=== PATIENT | female | born 1940 | race Caucasian/White ===

== ENCOUNTER 2017-05-24 22:03 | Inpatient (IN) | payer MEDICARE, OTHER ==
[~2017-05-24] VITALS: Ht 149.9 cm; Wt 55.7 kg
[~2017-05-24 22:03] MED LIST: ATOR10TA23 PO; CALC500T12 PO; DRON400T2 PO; LEVO88TA36 PO; LUBI24CA7 PO; METO-53 PO; NITR0.4T28 SL; WARF4TAB52 PO
--- NOTE | 2017-05-24 22:19 | RADRPT ---
PROCEDURE: CT Brain without contrast. CLINICAL INDICATION: Code stroke, elevated INR TECHNIQUE: A CT of the brain was performed utilizing axial imaging from the skull base through the vertex without intravenous contrast. Multiplanar reformatted images were made.The CTDIvol is 45.01 mGy and the DLP is 720.23 mGycm. One or more the following dose reduction techniques were utilized: Automated exposure control, adjus tment of the mA and / or kV according to patient's size, or use of iterative reconstruction techniqu e. COMPARISON: None. FINDINGS: There is no intracranial hemorrhage, mass effect, or midline shift. No extra-axial fluid collection is seen. Mild atrophy is identified with compensatory ventricular and sulcal enlargement. Mild de creased attenuation is seen in the periventricular and deep white matter, compatible with microvascu lar ischemic disease. The husain white matter differentiation is well preserved with no acute infarct detected. No skull fracture seen. Minimal mucosal thickening in right sphenoid sinus. Arterial juan cification. IMPRESSION: No acute bleed. No acute major territory infarct seen. Critical result discussed with Dr. Crowell at 10:17 p.m. on 05/24/2017. RPTAT: HJES .Tom Burroughs MD, MD Date Time Electronically viewed and signed by .Tom Burroughs MD, on 05/24/2017 22:19 .S/
[2017-05-24] MEDS ORDERED: SODIUM CHLORIDE 0.9% 1L BAG IV* STA (22:41)
[2017-05-24 22:45] LABS: ADD SCAN DIFF NO
[2017-05-24 22:47] LABS: ABNORMAL IP MESSAGE 1; HEMATOCRIT 38.3 % (37.0-47.0); HEMOGLOBIN 13.2 g/dl (12.0-16.0); MEAN CORPUSCULAR HEMOGLOBIN 30.6 pg (29.0-33.0); MEAN CORPUSCULAR HGB CONC 34.5 g/dl (32.0-37.0); MEAN CORPUSCULAR VOLUME 88.7 fl (82.0-101.0); MEAN PLATELET VOLUME 11.2 fl (7.4-10.4); PLATELET COUNT 264 10^3/UL (140-415); RED BLOOD COUNT 4.32 10^6/ul (4.20-5.40); RED CELL DISTRIBUTION WIDTH 13.1 % (11.5-14.5)
[2017-05-24] MEDS ORDERED: METOPROLOL 5 MG INJ IV ONE (23:00)
[2017-05-24] MEDS ORDERED: DILTIAZEM 25 MG INJ IV ONE (23:00)
[2017-05-24] MEDS ORDERED: LEVOFLOXACIN 500MG/D5W (PMX) 100 ML IVPB ONE (23:00)
[2017-05-24 23:06] LABS: INR 2.53; PROTIME 27.6 Sec (12.2-14.2); PT RATIO 2.2
[2017-05-24 23:07] LABS: PARTIAL THROMBOPLASTIN TIME 32.3 Sec (25.0-35.0)
[2017-05-24 23:15] LABS: CALCIUM 7.7 mg/dl (8.4-10.2); CREATININE 0.66 mg/dl (0.44-1.00); POTASSIUM 4.1 mmol/L (3.5-5.1)
--- NOTE | 2017-05-24 23:19 | ERA ---
ER Documentation Chief Complaint Date/Time DATE: 05/24/17 TIME: 23:15 Chief Complaint transfer in from [facility]; c/o weakness HPI This 76-year-old female is brought in along with her daughter transferred from [facility] for strokelike symptoms. The at 1953 she had some slurring of speech as well as blurred vision. In the time it took to arrive here she had resolution of those symptoms. She does have a artificial mitral valve for which she receives Coumadin. She had laboratories at the facility and the only thing brought with her was a CBC and coags which show an INR of 3.2. She did not take her Cardizem today. She does admit to having foul-smelling urine and some pain on urination for the last few days. Is also recently been immunosuppressed that she was treated for what sounds like ITP with immunosuppressants that just ended yesterday. ROS All systems reviewed and are negative except as per history of present illness. Medications Home Meds Reported Medications Lubiprostone* (Amitiza*) 24 Mcg Capsule, 24 MCG PO BID 12/22/11 Dronedarone Hydrochloride* (Multaq*) 400 Mg Tablet, 400 MG PO Q12 12/22/11 Atorvastatin (Lipitor) 10 Mg Tablet, 10 MG PO HS 12/22/11 Warfarin Sodium* (Warfarin Sodium*) 4 Mg Tablet, 4 MG PO DAILY 12/22/11 Levothyroxine Sodium (Levothroid) 88 Mcg Tablet, 88 MCG PO DAILY, 0 Refills 09/06/11 Nitroglycerin (Nitroquick) 0.4 Mg Tab.subl, 0.4 MG SL PRN, 0 Refills 09/06/11 Metoprolol (Lopressor) 50 Mg Tablet, 50 MG PO BID, 0 Refills 09/06/11 Calcium Carbonate* (Oysco-500*) 1 Tab Tablet, 500 MG PO BID, 0 Refills 09/06/11 Allergies Allergies: Coded Allergies: Penicillins (Verified Allergy, Severe, ANAPHALAXIS, 12/22/11) Uncoded Allergies: ASA (Allergy, Mild, RASH, 10/11/11) HEPARIN (Allergy, Unknown, 05/24/17) PMhx/Soc History of Surgery: Yes (OPRN HEART W/ VALVE REPLACEMENT; SPLEEN ; GALLBLADDER) Anesthesia Reaction: No Hx Neurological Disorder: No Hx Respiratory Disorders: No Hx Cardiac Disorders: Yes (HTN) Hx Psychiatric Problems: No Hx Miscellaneous Medical Probl: No Hx Alcohol Use: No Hx Substance Use: No Hx Tobacco Use: No Smoking Status: Unknown if ever smoked Physical Exam Vitals Vital Signs Date Time Temp Pulse Resp B/P Pulse Ox O2 Delivery O2 Flow Rate FiO2 05/25/17 00:58 83 17 99/67 95 Room Air 05/25/17 00:12 98.5 118 17 134/88 98 Room Air 05/24/17 22:25 100.2 129 15 135/80 95 Room Air 05/24/17 22:20 Nasal Cannula 2 05/24/17 22:16 100.2 126 20 135/80 Physical Exam Const: [] Mild distress Head: Atraumatic Eyes: Normal Conjunctiva ENT: Normal External Ears, Nose and Mouth. Neck: Full range of motion..~ No meningismus. Resp: Clear to auscultation bilaterally Cardio: Irregularly irregular tachycardia, no murmurs Abd: Soft, non tender, non distended. Normal bowel sounds Skin: No petechiae or rashes Back: No midline or flank tenderness Ext: No cyanosis, or edema, distal pulses intact all 4 extremities, 5 out of 5 strength all extremities with no focal weakness Neur: Awake and alert and oriented 3, cranial nerves II through XII intact, no cerebellar deficits Psych: Normal Mood and Affect Result Diagram: 05/24/17222605/24/172226 Results 24 hrs Laboratory Tests Test 05/24/17 22:25 05/24/17 22:27 05/24/17 22:50 05/24/17 22:58 Bedside Glucose 190mg/dL White Blood Count 36.810^3/ul Red Blood Count 4.3210^6/ul Hemoglobin 13.2g/dl Hematocrit 38.3% Mean Corpuscular Volume 88.7fl Mean Corpuscular Hemoglobin 30.6pg Mean Corpuscular Hemoglobin Concent 34.5g/dl Red Cell Distribution Width 13.1% Platelet Count 98825^3/UL Mean Platelet Volume 11.2fl Neutrophils % 88.0% Lymphocytes % 3.0% Monocytes % 9.0% Neutrophils # 32.410^3/ul Lymphocytes # 1.110^3/ul Monocytes # 3.310^3/ul Differential Comment MANUAL DIFF Platelet Estimate PLT APPEAR ADEQUATE Anisocytosis 1+ Ovalocytes FEW Prothrombin Time 27.6Sec Prothrombin Time Ratio 2.2 INR International Normalized Ratio 2.53 Activated Partial Thromboplast Time 32.3Sec Sodium Level 122mmol/L Potassium Level 4.1mmol/L Chloride Level 91mmol/L Carbon Dioxide Level 28mmol/L Anion Gap 7 Blood Urea Nitrogen 20mg/dl Creatinine 0.66mg/dl Glucose Level 195mg/dl Hemoglobin A1c 5.8% Calcium Level 7.7mg/dl Troponin I 0.013ng/ml Urine Color STANISLAW Urine Clarity CLOUDY Urine pH 7.0 Urine Specific [place] 1.020 Urine Ketones NEGATIVEmg/dL Urine Nitrite NEGATIVEmg/dL Urine Bilirubin NEGATIVEmg/dL Urine Urobilinogen NEGATIVEmg/dL Urine Leukocyte Esterase 3+Karol/ul Urine Microscopic RBC 16/HPF Urine Microscopic WBC 130/HPF Urine Bacteria MODERATE/HPF Urine Mucus MODERATE/HPF Urine Hemoglobin 2+mg/dL Urine Glucose 2+mg/dL Urine Total Protein 2+mg/dl Urine Opiates Screen Negative Urine Barbiturates Negative Urine Amphetamines Screen Negative Urine Benzodiazepines Screen Negative Urine Cocaine Screen Negative Urine Cannabinoids Negative Lactic Acid Level 1.2mmol/L Current Medications Medications (Trade) Dose Ordered Sig/Vy Route PRN Reason Start Time Stop Time Status Last Admin Dose Admin Diltiazem HCl (Cardizem Iv) 15 mg ONCE ONCE IV 05/24/17 23:00 05/24/17 23:01 DC 05/24/17 22:59 Metoprolol Tartrate (Lopressor) 5 mg ONCE ONCE IV 05/24/17 23:00 05/24/17 23:01 DC 05/24/17 22:59 Sodium Chloride 1730 ml 1,730 ml BOLUS OVER 2 HOURS STAT IV* 05/24/17 22:41 05/24/17 22:45 DC 05/24/17 22:58 Levofloxacin/ Dextrose (Levaquin 500mg/ D5W 100 ml (Pmx)) 100 ml @ 100 mls/hr ONCE ONCE IVPB 05/24/17 23:00 05/24/17 23:59 DC 05/24/17 23:00 Morphine Sulfate (morphine) 2 mg ONCE ONCE IV 05/25/17 00:00 05/25/17 00:01 DC Ondansetron HCl (Zofran Inj) 4 mg ONCE STAT IV 05/24/17 23:32 05/24/17 23:34 DC 05/24/17 23:54 Ketorolac Tromethamine (Toradol) 15 mg ONCE STAT IV 05/24/17 23:32 05/24/17 23:34 DC 05/24/17 23:54 Ondansetron HCl (Zofran Inj) 4 mg ER BRIDGE PRN IV NAUSEA AND/OR VOMITING 05/25/17 00:30 05/26/17 00:29 Acetaminophen (Tylenol Tab) 650 mg ER BRIDGE PRN PO MILD PAIN/FEVER 05/25/17 00:30 05/26/17 00:29 Diltiazem HCl 25 mg 25 mg ONCE ONCE IV 05/25/17 00:30 05/25/17 00:31 DC 05/25/17 00:22 Diltiazem HCl (Cardizem-D5W 125 Mg/125 ml Drip) 125 ml @ 5 mls/hr TITRATE IV 05/25/17 00:30 05/25/17 00:22 Procedures/MDM UTI with sepsis with hyponatremia and difficult to control A. fib with RVR. Patient's high leukocyte count is likely secondary to her recent treatment with steroids in IVIG. Her transient strokelike symptoms are possibly a complication of her infection as well as hyponatremia. She was hydrated with 30 cc/kg IV fluid. She was given Levaquin IV. She was given 15 mg of Cardizem as well as 5 mg of metoprolol which seemed to have absolutely no effect on her A. fib with RVR. She was then given 25 mg of Cardizem which did seem to control. Cardizem drip is also ordered. Patient also had some lower back pain which may be secondary to pyelonephritis. She was given 15 mg of Toradol IV which resolved with this pain. Spoke with Dr. Espinal who previously admitted the patient and will be admitting this patient to telemetry. EKG interpretation: A. fib with RVR rate of 129, right bundle branch block, normal axis, no ST or T-wave changes concerning for acute ischemia, likely rate related ST depressions in precordial leads. residential monitor interpretation A. fib with RVR rate of 120s and 130s, A. fib with rate controlled rate of 70s after administration of the second Cardizem bolus. No other arrhythmias CT brain interpretation: I see no acute process. I see no hemorrhage no mass- effect no midline shift no large infarcts, no skull fracture Chest x-ray interpretation: I see no acute process. I see no pulmonary edema, no infiltrate, no pneumothorax, no fracture Critical care time 39 minutes: This includes a treatment of A. fib with RVR with concomitant hyponatremia metabolic encephalopathy and sepsis, very careful fluid administration, early antibiotic administration, use of vasoactive medication IV metoprolol and diltiazem, chart reviewed, multiple visits the patient's bedside, discussion with patient daughter and admitting doctor. This does not include any billable procedures. Departure Diagnosis: Primary Impression: Sepsis Additional Impressions: Atrial fibrillation with RVR Metabolic encephalopathy Hyponatremia Condition: Serious VICK MONTANO DO May 24, 2017 23:19
[2017-05-24 23:23] LABS: LYMPHOCYTES # 1.1 10^3/ul (0.8-2.9); MONOCYTE # 3.3 10^3/ul (0.3-0.9); NEUTROPHIL # 32.4 10^3/ul (1.6-7.5)
[2017-05-24 23:26] LABS: TROPONIN-I 0.013 ng/ml (0.00-0.12)
[2017-05-24 23:30] LABS: ANISOCYTOSIS 1+; OVALOCYTES FEW; PLATELET ESTIMATE PLT APPEAR ADEQUATE
[2017-05-24] MEDS ORDERED: KETOROLAC 15 MG INJ IV STA (23:32)
[2017-05-24] MEDS ORDERED: ONDANSETRON 4 MG INJ IV STA (23:32)
[2017-05-24 23:48] LABS: ADD UMIC YES; UR ASCORBIC ACID NEGATIVE (NEGATIVE); UR BACTERIA MODERATE /HPF (NONE SEEN); UR BILIRUBIN (Dip) NEGATIVE (NEGATIVE); UR BLOOD (Dip) 2+ mg/dL (NEGATIVE); UR CLARITY CLOUDY (CLEAR); UR COLOR AMBER (YELLOW); UR GLUCOSE (Dip) 2+ mg/dL (NEGATIVE); UR KETONES (Dip) NEGATIVE (NEGATIVE); UR LEUKOCYTE ESTERASE (Dip) 3+ Leu/ul (NEGATIVE); UR MUCUS MODERATE /HPF (NONE SEEN); UR NITRITE (Dip) NEGATIVE (NEGATIVE); UR RBC 16 /HPF (0-5); UR TOTAL PROTEIN (Dip) 2+ mg/dl (NEGATIVE); UR UROBILINOGEN (Dip) NEGATIVE (NEGATIVE)
--- NOTE | 2017-05-24 23:51 | RADRPT ---
PROCEDURE: XR Chest. CLINICAL INDICATION: Possible stroke. TECHNIQUE: PA and Lateral views of the chest were obtained. COMPARISON: None. FINDINGS: Cardiomegaly and atherosclerotic calcifications in the thoracic aorta. Left anterior chest wall meño l chamber cardiac pacer. Discoid atelectasis at the left lung base. Question sclerotic changes in the few ribs at the right lower chest, perhaps representing metastatic deposits. Consider CT correl ation. Nuclear medicine bone scan may be of further use. No signs of pleural fluid or pneumothorax are seen. Otherwise, the osseous structures and soft tissues are unremarkable. IMPRESSION: 1. Discoid atelectasis at the left lung base. 2. Mild sclerotic changes in the right lower ribs, otherwise nonspecific. 3. Consider CT correlation to exclude metastatic deposits. 4. Nuclear medicine bone scan may be of further use. RPTAT: UU Physician Sumi Date Time Electronically viewed and signed by Physician Sumi on 05/24/2017 23:50 RS/
[2017-05-25] VITALS (11 sets, daily range): BP systolic 85–139; BP diastolic 48–65; PULSE 109–136; RESP 18–20; TEMP 98.5; Ht 149.9 cm; Wt 55.7 kg
[2017-05-25] MEDS ORDERED: morphine 2 MG INJ IV ONE
[2017-05-25] MEDS ORDERED: DILTIAZEM-D5W 125MG/125ML DRIP 125 ML IV SCH (00:30)
[2017-05-25] MEDS ORDERED: DILTIAZEM 25 MG INJ IV ONE (00:30)
[2017-05-25] MEDS ORDERED: ACETAMINOPHEN 325 MG TAB PO PRN (00:30)
[2017-05-25] MEDS ORDERED: ONDANSETRON 4 MG INJ IV PRN (00:30)
[2017-05-25 00:58] LABS: BARBITURATES Negative (NEGATIVE); BENZODIAZEPINES Negative (NEGATIVE); CANNABINOIDS Negative (NEGATIVE); COCAINE Negative (NEGATIVE); OPIATES Negative (NEGATIVE)
[2017-05-25] MEDS ORDERED: LEVOFLOXACIN 500MG/D5W (PMX) 100 ML IVPB SCH (07:00)
[2017-05-25] MEDS: SOD CHLORIDE 0.9% 1,000 ML IV SCH ×2 (07:00→21:45)
[2017-05-25] MEDS ORDERED: LEVOTHYROXINE 88 MCG TAB PO SCH (07:25)
[2017-05-25 08:15] LABS: ADD SCAN DIFF NO
[2017-05-25 08:22] LABS: ABNORMAL IP MESSAGE 1; HEMATOCRIT 38.5 % (37.0-47.0); HEMOGLOBIN 12.6 g/dl (12.0-16.0); MEAN CORPUSCULAR HEMOGLOBIN 29.4 pg (29.0-33.0); MEAN CORPUSCULAR HGB CONC 32.7 g/dl (32.0-37.0); MEAN PLATELET VOLUME 11.4 fl (7.4-10.4); PLATELET COUNT 226 10^3/UL (140-415); RED BLOOD COUNT 4.28 10^6/ul (4.20-5.40); RED CELL DISTRIBUTION WIDTH 13.5 % (11.5-14.5); WHITE BLOOD COUNT 40.5 10^3/ul (4.8-10.8)
[2017-05-25] MEDS: LEVOFLOXACIN 500MG/D5W (PMX) 100 ML IVPB SCH (08:23)
[2017-05-25] MEDS: LUBIPROSTONE 24 MCG CAP PO SCH ×2 (08:24→21:00)
[2017-05-25] MEDS: ACETAMINOPHEN 325 MG TAB PO PRN (08:24)
[2017-05-25 08:42] LABS: INR 3.15; PROTIME 32.8 Sec (12.2-14.2); PT RATIO 2.6
[2017-05-25 08:52] LABS: ALBUMIN 3.2 g/dl (3.3-4.9); ALBUMIN/GLOBULIN RATIO 0.96; CALCIUM 7.1 mg/dl (8.4-10.2); CREATININE 0.67 mg/dl (0.44-1.00); POTASSIUM 4.3 mmol/L (3.5-5.1); TOTAL PROTEIN 6.5 g/dl (6.1-8.1)
[2017-05-25] MEDS ORDERED: DRONEDARONE HYDROCHLORIDE 400 MG TAB PO SCH (09:00)
[2017-05-25] MEDS ORDERED: METOPROLOL 50 MG TAB PO SCH (09:00)
[2017-05-25 10:16] LABS: LYMPHOCYTES # 1.6 10^3/ul (0.8-2.9); MONOCYTE # 0.8 10^3/ul (0.3-0.9); NEUTROPHIL # 37.7 10^3/ul (1.6-7.5)
[2017-05-25] MEDS ORDERED: SOD CHLORIDE 0.9% 500 ML IV ONE ×2 (12:00→14:30)
[2017-05-25] MEDS ORDERED: DILTIAZEM 60 MG TAB PO SCH (13:00)
--- NOTE | 2017-05-25 13:03 | QN ---
Documentation Comment [id number] DUANE NGUYỄN MD May 25, 2017 13:03
[2017-05-25] MEDS ORDERED: GUAIFENESIN 20 MG/ML 5ML CUP PO PRN (15:00)
[2017-05-25 15:02] LABS: CHOL/HDL RATIO 2.5 RATIO
[2017-05-25] MEDS: GUAIFENESIN/DM 5ML CUP PO PRN ×2 (15:17→21:56)
[2017-05-25] MEDS: DIGOXIN 500 MCG INJ IV SCH ×2 (15:50→21:36)
--- NOTE | 2017-05-25 16:22 | CONS ---
Date/Time of Note Date/Time of Note DATE: 05/25/17 TIME: 16:14 Assessment/Plan Assessment/Plan Chief Complaint/Hosp Course Slurring of speech and blurry of vision Problems: Additional Assessment/Plan Patient is a 76-year-old woman with past medical history of mitral valve replacement status post pacemaker placement, atrial fibrillation was admitted following sudden onset of slurring of speech and blurry of vision. There was no weakness. And her symptoms resolved on arrival in the emergency room. CT scan of the brain is unremarkable. Neurological exam is nonfocal. My impression is that she likely had transient ischemic attack. PLAN: [address] scan of the brain without contrast as MRI of the brain cannot be done 2 carotid ultrasound 3 echocardiogram 4 continue Coumadin and keep INR between 2 and 3 5 neuro check every 4 hours 6 discussed with patient's daughter who is present in the room 7 will follow Consultation Date/Type/Reason Admit Date/Time May 25, 2017 at 00:06 Date of Consultation: May 25, 2017 Type of Consultation: Neurology Reason for Consultation Difficulty in speech Hx of Present Illness Patient is a 76-year-old woman with past medical history of mitral valve replacement on Coumadin, status post pacemaker and history of atrial fibrillation. She started to have symptoms of slurring of speech and blurring of vision as explained by patient's daughter who was in the room. Paramedics were called and she was taken to emergency room and was transferred to [facility]. A CT scan of the brain was unremarkable. Her symptoms had resolved after reaching at hospital. There is no history of weakness, numbness, or swallowing problems. On evaluation she was also found to be hyponatremic. Constitutional: no complaints Eyes: no complaints ENT: no complaints Respiratory: no complaints Cardiovascular: no complaints Gastrointestinal: no complaints Genitourinary: no complaints Musculoskeletal: no complaints Skin: no complaints Neurologic: no complaints Endocrine: no complaints Lymphatic: no complaints Psychological: nl mood/affect, no complaints Immunologic: no complaints Past Medical History Medical History: other (Atrial fibrillation) Past Surgical History Past Surgical Hx: other (Pacemaker, mitral valve replacement) Family History Significant Family History: no pertinent family hx Social History Alcohol Use: none Smoking Status: Never smoker Drug Use: none Exam/Review of Systems Vital Signs Vitals Vital Signs Date Time Temp Pulse Resp B/P Pulse Ox O2 Delivery O2 Flow Rate FiO2 05/25/17 12:51 109 05/25/17 11:23 98.2 18 85/48 95 05/25/17 01:39 Room Air 05/24/17 22:20 2 Exam Constitutional: alert, oriented, well developed Psych: nl mood/affect, no complaints Head: atraumatic, normocephalic Eyes: EOMI, nl conjunctiva, nl lids, nl sclera ENMT: mucosa pink and moist, nl external ears & nose, nl lips & teeth, nl nasal mucosa & septum Neck: non-tender, supple Respiratory: clear to auscultation, normal air movement Cardiovascular: nl pulses, regular rate and rhythm Gastrointestinal: nl liver, spleen, non-tender, soft Genitourinary - Female: nl adnexae, nl external genitalia Musculoskeletal: nl extremities to inspection Neurological: POKER IN II-XII intact, nl mental status, nl speech, nl strength Skin: nl turgor, rash or lesions Lymph: nl lymph nodes Results Result Diagram: 05/25/17 0803 05/25/17 0803 Results 24 hrs Laboratory Tests Test 05/24/17 22:25 05/24/17 22:27 05/24/17 22:50 05/24/17 22:58 Bedside Glucose 190 White Blood Count 36.8 H Red Blood Count 4.32 Hemoglobin 13.2 Hematocrit 38.3 Mean Corpuscular Volume 88.7 Mean Corpuscular Hemoglobin 30.6 Mean Corpuscular Hemoglobin Concent 34.5 Red Cell Distribution Width 13.1 Platelet Count 264 Mean Platelet Volume 11.2 H Neutrophils % 88.0 H Lymphocytes % 3.0 L Monocytes % 9.0 Neutrophils # 32.4 H Lymphocytes # 1.1 Monocytes # 3.3 H Differential Comment MANUAL DIFF Platelet Estimate PLT APPEAR ADEQUATE Anisocytosis 1+ Ovalocytes FEW Prothrombin Time 27.6 H Prothrombin Time Ratio 2.2 INR International Normalized Ratio 2.53 Activated Partial Thromboplast Time 32.3 Sodium Level 122 L Potassium Level 4.1 Chloride Level 91 L Carbon Dioxide Level 28 Anion Gap 7 L Blood Urea Nitrogen 20 Creatinine 0.66 Glucose Level 195 Hemoglobin A1c 5.8 Calcium Level 7.7 L Troponin I 0.013 Urine Color STANISLAW Urine Clarity CLOUDY A Urine pH 7.0 Urine Specific [place] 1.020 Urine Ketones NEGATIVE Urine Nitrite NEGATIVE Urine Bilirubin NEGATIVE Urine Urobilinogen NEGATIVE Urine Leukocyte Esterase 3+ H Urine Microscopic RBC 16 H Urine Microscopic WBC 130 H Urine Bacteria MODERATE Urine Mucus MODERATE Urine Hemoglobin 2+ H Urine Glucose 2+ H Urine Total Protein 2+ H Urine Opiates Screen Negative Urine Barbiturates Negative Urine Amphetamines Screen Negative Urine Benzodiazepines Screen Negative Urine Cocaine Screen Negative Urine Cannabinoids Negative Lactic Acid Level 1.2 Test 05/25/17 01:00 05/25/17 06:12 05/25/17 08:03 Lactic Acid Level 0.9 2.0 White Blood Count 40.5 H Red Blood Count 4.28 Hemoglobin 12.6 Hematocrit 38.5 Mean Corpuscular Volume 90.0 Mean Corpuscular Hemoglobin 29.4 Mean Corpuscular Hemoglobin Concent 32.7 Red Cell Distribution Width 13.5 Platelet Count 226 Mean Platelet Volume 11.4 H Band Neutrophils % 1.0 Lymphocytes % 4.0 L Monocytes % 2.0 Neutrophils # 37.7 H Lymphocytes # 1.6 Monocytes # 0.8 Prothrombin Time 32.8 H Prothrombin Time Ratio 2.6 INR International Normalized Ratio 3.15 Sodium Level 131 L Potassium Level 4.3 Chloride Level 96 L Carbon Dioxide Level 27 Anion Gap 12 Blood Urea Nitrogen 17 Creatinine 0.67 Glucose Level 74 # Calcium Level 7.1 L Total Bilirubin 1.0 Direct Bilirubin 0.00 Indirect Bilirubin 1.0 Aspartate Amino Transf (AST/SGOT) 41 Alanine Aminotransferase (ALT/SGPT) 43 Alkaline Phosphatase 71 Total Protein 6.5 Albumin 3.2 L Globulin 3.30 H Albumin/Globulin Ratio 0.96 Triglycerides Level 56 Cholesterol Level 102 LDL Cholesterol, Calculated 51 HDL Cholesterol 40 Cholesterol/HDL Ratio 2.5 Medications Medications Current Medications Lubiprostone (Amitiza) 24 mcg BID PO Last administered on 05/25/17 08:24; Admin Dose 24 MCG; Start 05/25/17 at 09:00 Nitroglycerin (Nitroglycerin (Sl Tab) 0.4 Mg) 0.4 tab PRN SL ; Start 05/25/17 at 06:00 Warfarin Sodium (Coumadin) 4 mg DAILY@17 PO ; Start 05/25/17 at 17:00; Status Future Hold Pantoprazole (Protonix Tab) 40 mg DAILY@06 PO ; Start 05/26/17 at 06:00 Acetaminophen 650 mg 650 mg Q6H PRN PO PAIN AND OR ELEVATED TEMP Last administered on 05/25/17 08:24; Admin Dose 650 MG; Start 05/25/17 at 06:30 Sodium Chloride 1,000 ml @ 70 mls/hr [id number] IV ; Start 05/25/17 at 07:00 Levofloxacin/ Dextrose (Levaquin 500mg/ D5W 100 ml (Pmx)) 100 ml @ 100 mls/hr Q24H IVPB Last administered on 05/25/17 08:23; Admin Dose 100 MLS/HR; Start 05/25/17 at 07:00 Magnesium Oxide (Mag-Ox 400) 400 mg DAILY PO ; Start 05/26/17 at 09:00 Methylprednisolone Sodium Succinate (Solu-Medrol) 20 mg Q12 IV ; Start 05/25/17 at 21:00 Guaifenesin/ Dextromethorphan (Robitussin Dm Liquid Cup) 5 ml Q4H PRN PO COUGH Last administered on 05/25/17 15:17; Admin Dose 5 ML; Start 05/25/17 at 15:00 Diltiazem HCl (Cardizem) 30 mg QID PO ; Start 05/25/17 at 17:00 Digoxin (Digoxin) 250 mcg Q6H IV Last administered on 05/25/17 15:50; Admin Dose 250 MCG; Start 05/25/17 at 14:00; Stop 05/25/17 at 20:01 Metoprolol Tartrate (Lopressor) 5 mg Q4H PRN IV HR>110 Hold SBP<100; Start 05/25 at 15:[address] scan of the brain 05/24/2017 IMPRESSION: No acute bleed. No acute major territory infarct seen. Critical result discussed with Dr. Crowell at 10:17 p.m. on 05/24/2017. RPTAT: HJES .Tom Burroughs MD, MD Date Time Electronically viewed and signed by .Tom Burroughs MD, MD on 05/24/2017 22:19 ANT HEDRICK MD May 25, 2017 16:22
[2017-05-25] MEDS: DILTIAZEM 30 MG TAB PO SCH ×2 (17:30→21:34)
--- NOTE | 2017-05-25 17:34 | RADRPT ---
PROCEDURE: US carotid arteries. CLINICAL INDICATION: Dizziness. Syncope. TECHNIQUE: Multiple sonographic images of the carotid arteries and vertebral arteries were obtaine d utilizing husain scale, duplex, and color-flow imaging. The images were reviewed on a PACS workstati on. COMPARISON: No prior studies are available for comparison. FINDINGS: Evaluation of the right carotid bifurcation region reveals mild atherosclerotic disease. Evaluation of the left carotid bifurcation region reveals mild atherosclerotic disease. There is antegrade flow within the vertebral arteries bilaterally. RIGHT CAROTID MEASUREMENTS: Common Carotid [id number] (cm/sec) Internal Carotid Artery 40 (cm/sec) External Carotid Artery 47 (cm/sec) Vertebral Artery 51 (cm/sec) Internal Carotid/Common Carotid1.1 LEFT CAROTID MEASUREMENTS: Common Carotid [id number] (cm/sec) Internal Carotid Artery 50 (cm/sec) External Carotid Artery 63 (cm/sec) Vertebral Artery 35 (cm/sec) Internal Carotid/Common Carotid1.1 Validated velocity measurements with angiographic measurements. Velocity criteria are extrapolated f rom diameter data as defined by the Society of Radiologists in Ultrasound Consensus Conference. Radi ology 2003; 229;340-346. This study does indirectly reference the measurement of the distal ICA amalia meter as the denominator for stenosis measurement. IMPRESSION: 1. Less than 50% stenosis bilaterally in the internal carotid arteries. 2. Normal antegrade flow in the vertebral arteries bilaterally. RPTAT: QQ SRU Consensus Conference Criteria for the Diagnosis of Carotid Artery Stenosis* Degree of Stenosis, % ICA PSV, cm/sec Plaque Estimate, % ICA/CCA PSV Ratio Normal <125 None <2.0 <50 <125 <50 <2.0 50 69 125-230 >50 2.0-4.0 >70 but less than near occlusion >230 >50 <4.0 Near occlusion High, low, or undetectable Visible Variable Total occlusion Undetectable Visible, no detectable lumen Not applicable *Cartoid artery stenosis: husain-scale and Doppler US diagnosis. Society of Radiologists in Ultrasound Consensus Conference. Radiology 2003; 229: 340-346 .Isiah Lamar MD, Date Time Electronically viewed and signed by .Isiah Lamar MD, on 05/25/2017 17:34 .R/
[2017-05-25] MEDS: METOPROLOL 5 MG INJ IV PRN (18:10)
[2017-05-25] MEDS ORDERED: VANCOMYCIN IV PER PHARMACY XX SCH (20:30)
[2017-05-25] MEDS ORDERED: TOBRAMYCIN 100 MG in SOD CHLORIDE 0.9% 100 ML IVPB SCH (21:00)
[2017-05-25] MEDS: METHYLPREDNISOLONE 40 MG INJ IV SCH (21:00)
[2017-05-25] MEDS ORDERED: ATORVASTATIN 10 MG TAB PO SCH (21:00)
--- NOTE | 2017-05-25 22:21 | RADRPT ---
PROCEDURE: XR Chest. CLINICAL INDICATION: Shortness of breath. TECHNIQUE: Single frontal view. COMPARISON: 05/24/2017. FINDINGS: There is mild left basilar atelectasis. The lungs are otherwise clear. The heart is enlarged. There are sternal wires. There is a biventricular pacemaker. A mitral valv e prosthesis is present. There is no pleural effusion. There is no pneumothorax. IMPRESSION: 1. Mild left basilar atelectasis. 2. No other change from 05/24/2017. RPTAT: QQ .Isiah Lamar MD, MD Date Time Electronically viewed and signed by .Isiah Lamar MD, MD on 05/25/2017 22:21 .R/
--- NOTE | 2017-05-25 22:23 | RADRPT ---
PROCEDURE: CT Brain without contrast. CLINICAL INDICATION: Altered mental status. Sepsis, transient ischemic attack, hyponatremia. TECHNIQUE: A CT of the brain without contrast was performed utilizing axial sections from the skul l base through the vertex. The patient was scanned without intravenous contrast enhancement. Sagitta l and coronal reformatted images were obtained using the data from the axial images. Total exam DLP is 630.20 mGy-cm. CTDIvol is 44.03 mGy. One or more of the following dose reduction techniques were used: Automated exposure control, adjustment of the mA and/or kV according to patient size, use of iterative reconstruction technique. COMPARISON: None available. FINDINGS: There is normal husain-white matter differentiation. There is enlargement of the ventricles and subarachnoid spaces consistent with atrophy. There is decreased attenuation of the periventricular white matter consistent with microangiopathic ischemic change. There is no intracranial hemorrhage or space-occupying lesion. There are vascular calcifications consistent with atherosclerosis. There is no skull fracture or lytic lesion. Fluid is present bilaterally in the mastoid air cells. IMPRESSION: 1. Atrophy. 2. Microangiopathic ischemic change. 3. Atherosclerosis. 4. Fluid present bilaterally in the mastoid air cells. 5. No intracranial hemorrhage. 6. Otherwise unremarkable noncontrast CT scan of the brain. RPTAT: QQ .Isiah Lamar MD, MD Date Time Electronically viewed and signed by .Isiah Lamar MD, on 05/25/2017 22:23 .R/
[2017-05-25] MEDS: VANCOMYCIN 1 GM in NS 250 ML IVPB SCH (23:04)
[2017-05-26] VITALS (12 sets, daily range): BP systolic 97–158; BP diastolic 54–71; PULSE 113–140; RESP 16–20
[2017-05-26] MEDS: ACETAMINOPHEN 325 MG TAB PO PRN ×3 (00:45→22:56)
[2017-05-26] MEDS: LEVOFLOXACIN 500MG/D5W (PMX) 100 ML IVPB SCH (06:01)
[2017-05-26] MEDS: PANTOPRAZOLE (EC) 40 MG TAB PO SCH (06:01)
[2017-05-26] MEDS: LEVOTHYROXINE 75 MCG TAB PO SCH (06:48)
[2017-05-26 07:10] LABS: ADD SCAN DIFF NO
[2017-05-26 07:30] LABS: ABNORMAL IP MESSAGE 1; HEMATOCRIT 38.1 % (37.0-47.0); HEMOGLOBIN 12.2 g/dl (12.0-16.0); MEAN CORPUSCULAR HEMOGLOBIN 29.5 pg (29.0-33.0); MEAN CORPUSCULAR VOLUME 92.3 fl (82.0-101.0); MEAN PLATELET VOLUME 12.1 fl (7.4-10.4); PLATELET COUNT 206 10^3/UL (140-415); RED BLOOD COUNT 4.13 10^6/ul (4.20-5.40); RED CELL DISTRIBUTION WIDTH 13.6 % (11.5-14.5)
[2017-05-26 07:32] LABS: INR 2.65; PROTIME 28.6 Sec (12.2-14.2); PT RATIO 2.2
[2017-05-26 07:37] LABS: ALBUMIN 2.8 g/dl (3.3-4.9); ALBUMIN/GLOBULIN RATIO 0.96; BILIRUBIN,INDIRECT 0.7 mg/dl (0-1.1); BILIRUBIN,TOTAL 0.7 mg/dl (0.2-1.3); CALCIUM 6.5 mg/dl (8.4-10.2); CREATININE 0.77 mg/dl (0.44-1.00); POTASSIUM 4.1 mmol/L (3.5-5.1); TOTAL PROTEIN 5.7 g/dl (6.1-8.1)
[2017-05-26 07:39] LABS: CHOL/HDL RATIO 2.8 RATIO
[2017-05-26] MEDS: METHYLPREDNISOLONE 40 MG INJ IV SCH ×2 (08:34→20:49)
[2017-05-26] MEDS: GUAIFENESIN/DM 5ML CUP PO PRN ×2 (08:42→20:55)
[2017-05-26] MEDS: MAGNESIUM OXIDE 400 MG TAB PO SCH (08:43)
[2017-05-26] MEDS: LUBIPROSTONE 24 MCG CAP PO SCH ×2 (08:44→20:50)
[2017-05-26] MEDS: DILTIAZEM 30 MG TAB PO SCH ×4 (08:45→20:51)
[2017-05-26 11:05] LABS: LYMPHOCYTES # 0.5 10^3/ul (0.8-2.9); MONOCYTE # 2.5 10^3/ul (0.3-0.9); NEUTROPHIL # 43.6 10^3/ul (1.6-7.5)
[2017-05-26 11:06] LABS: PLATELET ESTIMATE PLT APPEAR ADEQUATE
[2017-05-26] MEDS: SOD CHLORIDE 0.9% 1,000 ML IV SCH (11:56)
[2017-05-26] MEDS: METOPROLOL 5 MG INJ IV PRN (15:59)
[2017-05-26] MEDS: WARFARIN 2 MG TAB PO SCH (16:05)
--- NOTE | 2017-05-26 17:24 | CONS ---
Date/Time of Note Date/Time of Note DATE: 05/26/17 TIME: 17:14 Assessment/Plan Assessment/Plan Chief Complaint/Hosp Course IMP: 1.tachycardia-? S Tach/SVT/pacermaker mediated/secondary to fevers 2.Hypotension 3.H/O PAF 4.Fevers/leukcytosis 5. TIA 6.UTI Recc: -Tele -Continue diltiazem -Partial digoxin load and will give BB for synergism -f/u echo -Contineu abx's and f/u cx data -treat fevers Problems: Consultation Date/Type/Reason Admit Date/Time May 25, 2017 at 00:06 Initial Consult Date 05/25/17 Type of Consultation: cardiology Reason for Consultation tachycardia Referring Provider: DUANE NGUYỄN Exam/Review of Systems Vital Signs Vitals Vital Signs Date Time Temp Pulse Resp B/P Pulse Ox O2 Delivery O2 Flow Rate FiO2 05/26/17 16:16 138 05/26/17 16:06 98.4 16 116/65 91 05/26/17 08:53 Nasal Cannula 2.0 Intake and Output 05/25/17 05/25/17 05/26/17 15:00 23:00 07:00 Intake Total 1720 ml 1250 ml Balance 1720 ml 1250 ml Exam Review of Systems: CONSTITUTIONAL: No fevers, chills. PULMONARY: No sob CARDIOVASCULAR: No chest pain/palpitations GASTROINTESTINAL: No nausea/vomiting. GENITOURINARY: No hematuria/dysuria. MUSCULOSKELETAL: No myagias/arthalgias. PSYCHIATRIC: The patient denies depression. NEUROLOGIC: No weakness Constitutional: alert Psych: no complaints Head: normocephalic ENMT: mucosa pink and moist Neck: jvd, supple Respiratory: diminished breath sounds (at bases/B) Cardiovascular: regular rate and rhythm Gastrointestinal: non-tender, soft Musculoskeletal: muscle tone (normal) Extremities: edema (trace/B) Neurological: other (No focal deficits) Results Result Diagram: 05/26/17 0650 05/26/17 0650 Results 24 hrs Laboratory Tests Test 05/25/17 19:30 05/25/17 22:27 05/26/17 06:50 Troponin I < 0.012 0.015 0.026 Lactic Acid Level 1.5 White Blood Count 49.0 #H Red Blood Count 4.13 L Hemoglobin 12.2 Hematocrit 38.1 Mean Corpuscular Volume 92.3 Mean Corpuscular Hemoglobin 29.5 Mean Corpuscular Hemoglobin Concent 32.0 Red Cell Distribution Width 13.6 Platelet Count 206 Mean Platelet Volume 12.1 H Neutrophils % 89.0 H Band Neutrophils % 5.0 Lymphocytes % 1.0 L Monocytes % 5.0 Neutrophils # 43.6 H Lymphocytes # 0.5 L Monocytes # 2.5 H Platelet Estimate PLT APPEAR ADEQUATE Prothrombin Time 28.6 H Prothrombin Time Ratio 2.2 INR International Normalized Ratio 2.65 Sodium Level 131 L Potassium Level 4.1 Chloride Level 104 Carbon Dioxide Level 23 Anion Gap 8 Blood Urea Nitrogen 20 Creatinine 0.77 Glucose Level 75 Calcium Level 6.5 L Total Bilirubin 0.7 Direct Bilirubin 0.00 Indirect Bilirubin 0.7 Aspartate Amino Transf (AST/SGOT) 39 Alanine Aminotransferase (ALT/SGPT) 39 Alkaline Phosphatase 78 Total Protein 5.7 L Albumin 2.8 L Globulin 2.90 Albumin/Globulin Ratio 0.96 Triglycerides Level 48 Cholesterol Level 89 L LDL Cholesterol, Calculated 48 HDL Cholesterol 31 L Cholesterol/HDL Ratio 2.8 Medications Medications Current Medications Lubiprostone (Amitiza) 24 mcg BID PO Last administered on 05/25/17 08:24; Admin Dose 24 MCG; Start 05/25/17 at 09:00 Nitroglycerin (Nitroglycerin (Sl Tab) 0.4 Mg) 0.4 tab PRN SL ; Start 05/25/17 at 06:00 Warfarin Sodium (Coumadin) 4 mg DAILY@17 PO Last administered on 05/26/17 16: 05; Admin Dose 4 MG; Start 05/25/17 at 17:00; Status Future hold Pantoprazole (Protonix Tab) 40 mg DAILY@06 PO Last administered on 05/26/17 06 :01; Admin Dose 40 MG; Start 05/26/17 at 06:00 Acetaminophen 650 mg 650 mg Q6H PRN PO PAIN AND OR ELEVATED TEMP Last administered on 05/26/17 11:53; Admin Dose 650 MG; Start 05/25/17 at 06:30 Sodium Chloride 1,000 ml @ 70 mls/hr [id number] IV Last administered on 11:56; Admin Dose 70 MLS/HR; Start 05/25/17 at 07:00 Levofloxacin/ Dextrose (Levaquin 500mg/ D5W 100 ml (Pmx)) 100 ml @ 100 mls/hr Q24H IVPB Last administered on 05/26/17 06:01; Admin Dose 100 MLS/HR; Start at 07:00 Magnesium Oxide (Mag-Ox 400) 400 mg DAILY PO Last administered on 05/26/17 08: 43; Admin Dose 400 MG; Start 05/26/17 at 09:00 Methylprednisolone Sodium Succinate (Solu-Medrol) 20 mg Q12 IV ; Start 05/25/17 at 21:00 Guaifenesin/ Dextromethorphan (Robitussin Dm Liquid Cup) 5 ml Q4H PRN PO COUGH Last administered on 05/26/17 08:42; Admin Dose 5 ML; Start 05/25/17 at 15:00 Diltiazem HCl (Cardizem) 30 mg QID PO Last administered on 05/26/17 16:04; Admin Dose 30 MG; Start 05/25/17 at 17:00 Metoprolol Tartrate 5 mg 5 mg Q4H PRN IV HR>110 Hold SBP<100 Last administered on 05/26/17 15:59; Admin Dose 5 MG; Start 05/25/17 at 15:30 Vancomycin HCl (Vancocin) 250 ml @ 125 mls/hr Q24H IVPB Last administered on 23:04; Admin Dose 125 MLS/HR; Start 05/25/17 at 23:00 Lactobacillus Acidophilus/ Rhamnosus (Culturelle) 1 cap DAILY PO ; Start at 09:00 PLACIDO COREA May 26, 2017 17:24
[2017-05-26] MEDS ORDERED: DIGOXIN 500 MCG INJ IV ONE (17:30)
[2017-05-26] MEDS: LEVALBUTEROL (NEB) 0.63 MG/3 ML AMP HHN PRN (20:11)
--- NOTE | 2017-05-26 20:49 | RADRPT ---
Echocardiogram Report Patient Name: LUIS EDUARDO GLORIA Gender: Female Date: 1940 Study Date: 26-May-2017 Slip Cover Cutter: Karen [facility] [[email or web address]] Location: [id number] Ref. Physician: PLACIDO RODRIGUEZ Quality: Adequate Procedures: Transthoracic echocardiogram with complete 2D, M-Mode, and doppler examination. Indications: Hypotension. 2D/M Mode Doppler Measurement Value Normal Ranges Measurement Value Normal Ranges LVIDd 2D 3.8 3.5 - 5.6 cm CHASE Vmax 0.8 cm2 LVIDs 2D 2.7 2.1 - 4.1 cm CHASE VTI 0.9 cm2 FS 2D 27.7 % AV Mean PG 22.0 mmHg LVPWd 2D 1.4 0.6 - 1.1 cm AV Peak Kaushik 3.0 m/sec IVSd 2D 1.3 0.6 - 1.1 cm AV Peak PG 36.0 mmHg IVS/LVPW 2D 1.0 AV VTI 55.1 cm AoR Diam 2D 2.8 2.0 - 3.7 cm AI Peak PG 41.0 mmHg LA/Ao 2D 2 0 - 1 AI Peak Kaushik 3.2 m/sec EDV 2D 54.4 cm3 AI PHT 366.0 msec ESV 2D 20.6 cm3 LVOT Peak Kaushik 0.7 m/sec LA Dimen 2D 4.4 2.3 - 4.0 cm LVOT Peak PG 2.0 mmHg LVOT Diam 2.1 cm MV E Peak Kaushik 1.5 m/sec LVOT Area 3.5 cm2 MV PHT 33.0 msec MV Peak Kaushik 1.6 m/sec MV Peak PG 10.0 mmHg MV Mean Kaushik 1.1 m/sec MV Mean PG 5.0 mmHg MV Decel Time 109 msec MV PHT Peak Kaushik 1.7 m/sec MV PHT 33.0 msec MV VTI 28.3 cm MVA PHT 6.7 cm2 MVA VTI 1.7 cm TR Peak Kaushik 2.8 m/sec TR Peak PG 32.0 mmHg RVSP 35.0 mmHg Findings Left Ventricle: Normal left ventricular cavity size. Mild concentric left ventricular hypertrophy. Mild global left ventricular systolic dysfunction. Ejection fraction is visually estimated at 40 %. Abnormal Diastolic Function. Right Ventricle: Normal right ventricular size. Normal right ventricular systolic function. Pacemaker right heart. Left Atrium: There is mild enlargement of left atrium. Right Atrium: The right atrium is normal in size. Mitral Valve: Mitral Valve Mechanical Prosthesis. Mitral valve Max Velocity 1.68 m/sec. MaxPG 8.00 mmHg. MeanPG 5.00 mmHg. Mitral Valve Area by PHT6.67 cm2. Mitral Valve Area by Continuity1.72 cm2. Aortic Valve: Moderate aortic stenosis. Aortic valve Max velocity 3.02 m/sec. Max PG 37.00 mmHg. Mean PG 18.00 mmHg. Aortic valve area 0.80 cm2. Aortic cusps appear moderately calcified. Tricuspid Valve: Normal appearance of the tricuspid valve. Estimated peak PA systolic pressure 35 mmHg. There is moderate tricuspid regurgitation. Pulmonic Valve: Pulmonic valve not well visualized. There is mild to moderate pulmonic regurgitation. Pericardium: Normal pericardium with no significant pericardial effusion. Aorta: Normal aortic root. IVC: Normal size and normal respiratory collapse consistent with normal right atrial pressure. Conclusions 1.Normal left ventricular cavity size. Mild concentric left ventricular hypertrophy. Mild global left ventricular systolic dysfunction. Ejection fraction is visually estimated at 40 %. Abnormal Diastolic Function. 2.There is mild enlargement of left atrium. 3.Mitral Valve Mechanical Prosthesis. Mitral valve Max Velocity 1.68 m/sec. MaxPG 8.00 mmHg. MeanPG 5.00 mmHg. 4.Moderate aortic stenosis. Mean PG 18.00 mmHg. Aortic valve area 0.80 cm2. Aortic cusps appear moderately calcified. 5.Normal appearance of the tricuspid valve. Estimated peak PA systolic pressure 35 mmHg. There is moderate tricuspid regurgitation. 6.Pulmonic valve not well visualized. There is mild to moderate pulmonic regurgitation. Electronically Signed By: Placido Rodriguez 26-May-2017 20:48:58 -0700 Patient Name: LUIS EDUARDO GLORIA Study Date: 26-May-2017 [id number]
[2017-05-26] MEDS: ATENOLOL 25 MG TAB PO SCH (20:50)
[2017-05-26 21:34] LABS: AADO2 Arterial 109.5 mmHg (7.0-24.0); Allen Test ACCEPTAB; Arterial Base Excess -2.9 mmol/L (-3.0-3); Arterial COHb 0.4 % (0.0-3.0); Arterial Fraction of Oxyhgb 96.8 % (93.0-99.0); Arterial MetHb 0.5 % (0.0-1.5); Arterial Total Hemglobin 16.3 g/dl (12.0-18.0); MODE NASAL CANNULA
--- NOTE | 2017-05-26 21:54 | RADRPT ---
PROCEDURE: XR Chest. CLINICAL INDICATION: Shortness of breath. TECHNIQUE: Single frontal view. COMPARISON: 05/25/2017. FINDINGS: There is mild left basilar atelectasis. The lungs are otherwise clear. The heart is enlarged. There are sternal wires. There is a biventricular pacemaker. A mitral valv e prosthesis is present. There is no pleural effusion. There is no pneumothorax. IMPRESSION: 1. Mild left basilar atelectasis. 2. No change from 05/25/2017. RPTAT: QQ .Isiah Lamar MD, MD Date Time Electronically viewed and signed by .Isiah Lamar MD, MD on 05/26/2017 21:54 .R/
[2017-05-26] MEDS: VANCOMYCIN 1 GM in NS 250 ML IVPB SCH (22:56)
[2017-05-27] VITALS (11 sets, daily range): BP systolic 101–135; BP diastolic 55–75; PULSE 75–120; RESP 16–20
--- NOTE | 2017-05-27 | PN ---
Date/Time of Note Date/Time of Note DATE: 05/26/17 TIME: 23:58 Assessment/Plan VTE Prophylaxis VTE Prophylaxis Intervention: other Lines/Catheters IV Catheter Type (from Nrs): Peripheral IV Urinary Cath still in place: No Assessment/Plan Chief Complaint/Hosp Course SEPSIS AFIB HTN ASHD UTI LOW EF PLAN LASIX ANTIBIOTIC Problems: Subjective 24 Hr Interval Summary Respiratory: shortness of breath (+) Cardiovascular: No chest pain Gastrointestinal: no complaints Exam/Review of Systems Vital Signs Vitals Vital Signs Date Time Temp Pulse Resp B/P Pulse Ox O2 Delivery O2 Flow Rate FiO2 05/26/17 20:11 121 22 99 Nasal Cannula 4.0 05/26/17 20:06 98.4 134/61 Intake and Output 05/25/17 05/25/17 05/26/17 15:00 23:00 07:00 Intake Total 1720 ml 1250 ml Balance 1720 ml 1250 ml Exam Neck: supple Respiratory: diminished breath sounds Cardiovascular: irregular rhythm Gastrointestinal: bowel sounds (+), soft Extremities: edema (+) Results Result Diagram: 05/26/17 0650 05/26/17 0650 Results 24 hrs Laboratory Tests Test 05/26/17 06:50 05/26/17 20:00 05/26/17 21:00 White Blood Count 49.0 #H Red Blood Count 4.13 L Hemoglobin 12.2 Hematocrit 38.1 Mean Corpuscular Volume 92.3 Mean Corpuscular Hemoglobin 29.5 Mean Corpuscular Hemoglobin Concent 32.0 Red Cell Distribution Width 13.6 Platelet Count 206 Mean Platelet Volume 12.1 H Neutrophils % 89.0 H Band Neutrophils % 5.0 Lymphocytes % 1.0 L Monocytes % 5.0 Neutrophils # 43.6 H Lymphocytes # 0.5 L Monocytes # 2.5 H Platelet Estimate PLT APPEAR ADEQUATE Prothrombin Time 28.6 H Prothrombin Time Ratio 2.2 INR International Normalized Ratio 2.65 Sodium Level 131 L Potassium Level 4.1 Chloride Level 104 Carbon Dioxide Level 23 Anion Gap 8 Blood Urea Nitrogen 20 Creatinine 0.77 Glucose Level 75 Calcium Level 6.5 L Total Bilirubin 0.7 Direct Bilirubin 0.00 Indirect Bilirubin 0.7 Aspartate Amino Transf (AST/SGOT) 39 Alanine Aminotransferase (ALT/SGPT) 39 Alkaline Phosphatase 78 Troponin I 0.026 0.016 Total Protein 5.7 L Albumin 2.8 L Globulin 2.90 Albumin/Globulin Ratio 0.96 Triglycerides Level 48 Cholesterol Level 89 L LDL Cholesterol, Calculated 48 HDL Cholesterol 31 L Cholesterol/HDL Ratio 2.8 Blood Gas Specimen Source Blood arterial Arterial Blood Date Drawn 05/26/2017 9:26:34 PM Arterial Blood pH (Temp corrected) 7.432 Arterial Blood pCO2 (Temp correct) 30.7 L Arterial Blood pO2 (Temp corrected) 90.0 Arterial Blood HCO3 20.0 L Arterial Blood Base Excess -2.9 Arterial Blood Oxygen Saturation 97.7 [place] Test ACCEPTAB Arterial Blood Gas Puncture Site Right Radial Arterial Blood Carboxyhemoglobin 0.4 Arterial Blood Methemoglobin 0.5 Blood Gas A-a O2 Differential 109.5 H Oxyhemoglobin Percent 96.8 Total Hemoglobin 16.3 Blood Gas Temperature 37.0 Blood Gas Modality NASAL CANNULA FiO2 33.0 Blood Gas Notified Whom BR Blood Gas Notified Time 05/26/2017 9:34:13 PM Medications Medications Current Medications Lubiprostone (Amitiza) 24 mcg BID PO Last administered on 05/26/17 20:50; Admin Dose 24 MCG; Start 05/25/17 at 09:00 Nitroglycerin (Nitroglycerin (Sl Tab) 0.4 Mg) 0.4 tab PRN SL ; Start 05/25/17 at 06:00 Warfarin Sodium (Coumadin) 4 mg DAILY@17 PO Last administered on 05/26/17 16: 05; Admin Dose 4 MG; Start 05/25/17 at 17:00; Status Future hold Pantoprazole (Protonix Tab) 40 mg DAILY@06 PO Last administered on 05/26/17 06 :01; Admin Dose 40 MG; Start 05/26/17 at 06:00 Acetaminophen 650 mg 650 mg Q6H PRN PO PAIN AND OR ELEVATED TEMP Last administered on 05/26/17 22:56; Admin Dose 650 MG; Start 05/25/17 at 06:30 Sodium Chloride 1,000 ml @ 70 mls/hr [id number] IV Last administered on 11:56; Admin Dose 70 MLS/HR; Start 05/25/17 at 07:00 Levofloxacin/ Dextrose (Levaquin 500mg/ D5W 100 ml (Pmx)) 100 ml @ 100 mls/hr Q24H IVPB Last administered on 05/26/17 06:01; Admin Dose 100 MLS/HR; Start at 07:00 Magnesium Oxide (Mag-Ox 400) 400 mg DAILY PO Last administered on 05/26/17 08: 43; Admin Dose 400 MG; Start 05/26/17 at 09:00 Methylprednisolone Sodium Succinate (Solu-Medrol) 20 mg Q12 IV Last administered on 05/26/17 20:49; Admin Dose 20 MG; Start 05/25/17 at 21:00 Guaifenesin/ Dextromethorphan (Robitussin Dm Liquid Cup) 5 ml Q4H PRN PO COUGH Last administered on 05/26/17 20:55; Admin Dose 5 ML; Start 05/25/17 at 15:00 Diltiazem HCl (Cardizem) 30 mg QID PO Last administered on 05/26/17 20:51; Admin Dose 30 MG; Start 05/25/17 at 17:00 Metoprolol Tartrate 5 mg 5 mg Q4H PRN IV HR>110 Hold SBP<100 Last administered on 05/26/17 15:59; Admin Dose 5 MG; Start 05/25/17 at 15:30 Vancomycin HCl (Vancocin) 250 ml @ 125 mls/hr Q24H IVPB Last administered on 22:56; Admin Dose 125 MLS/HR; Start 05/25/17 at 23:00 Lactobacillus Acidophilus/ Rhamnosus (Culturelle) 1 cap DAILY PO ; Start at 09:00 Atenolol (Tenormin) 25 mg BID PO Last administered on 05/26/17 20:50; Admin Dose 25 MG; Start 05/26/17 at 21:00 DUANE NGUYỄN MD May 26, 2017 23:59
[2017-05-27] MEDS: LEVOFLOXACIN 500MG/D5W (PMX) 100 ML IVPB SCH (06:28)
[2017-05-27] MEDS: LEVOTHYROXINE 75 MCG TAB PO SCH (06:28)
[2017-05-27] MEDS: PANTOPRAZOLE (EC) 40 MG TAB PO SCH (06:28)
[2017-05-27] MEDS: FUROSEMIDE 20 MG INJ IV SCH ×2 (06:29→17:35)
[2017-05-27 08:39] LABS: ADD SCAN DIFF NO
[2017-05-27 08:43] LABS: ABNORMAL IP MESSAGE 1; HEMATOCRIT 40.4 % (37.0-47.0); HEMOGLOBIN 12.9 g/dl (12.0-16.0); MEAN CORPUSCULAR HEMOGLOBIN 29.4 pg (29.0-33.0); MEAN CORPUSCULAR HGB CONC 31.9 g/dl (32.0-37.0); MEAN PLATELET VOLUME 12.6 fl (7.4-10.4); PLATELET COUNT 110 10^3/UL (140-415); RED BLOOD COUNT 4.39 10^6/ul (4.20-5.40); RED CELL DISTRIBUTION WIDTH 13.7 % (11.5-14.5); WHITE BLOOD COUNT 52.6 10^3/ul (4.8-10.8)
[2017-05-27] MEDS: LUBIPROSTONE 24 MCG CAP PO SCH ×2 (09:01→21:52)
[2017-05-27 09:02] LABS: INR 2.42; PROTIME 26.6 Sec (12.2-14.2); PT RATIO 2.1
[2017-05-27] MEDS: METHYLPREDNISOLONE 40 MG INJ IV SCH (09:02)
[2017-05-27] MEDS: ATENOLOL 25 MG TAB PO SCH ×2 (09:02→21:53)
[2017-05-27] MEDS: DILTIAZEM 30 MG TAB PO SCH ×4 (09:02→21:52)
[2017-05-27] MEDS: MAGNESIUM OXIDE 400 MG TAB PO SCH (09:03)
[2017-05-27] MEDS: LACTOBACILLUS RHAMNOSUS CAP PO SCH (09:03)
[2017-05-27 09:12] LABS: ALBUMIN/GLOBULIN RATIO 0.96; BILIRUBIN,INDIRECT 0.5 mg/dl (0-1.1); BILIRUBIN,TOTAL 0.5 mg/dl (0.2-1.3); CALCIUM 7.4 mg/dl (8.4-10.2); CREATININE 0.63 mg/dl (0.44-1.00); TOTAL PROTEIN 6.1 g/dl (6.1-8.1)
--- NOTE | 2017-05-27 11:04 | CONS ---
Date/Time of Note Date/Time of Note DATE: 05/27/17 TIME: 11:00 Consult Date/Type/Reason Admit Date/Time May 25, 2017 at 00:06 Initial Consult Date 05/25/17 Type of Consultation: Neurology Reason for Consultation eval for TIA transient slurred speech, diplopia Ordering Provider: DUANE NGUYỄN MD Subjective no further neurologic symptoms speech back to baseline being treated for sepsis Objective Vital Signs Date Time Temp Pulse Resp B/P Pulse Ox O2 Delivery O2 Flow Rate FiO2 05/27/17 08:15 82 05/27/17 07:11 98.2 19 125/75 98 05/26/17 20:45 Simple Mask 05/26/17 20:11 4.0 Intake and Output 05/26/17 05/26/17 05/27/17 15:00 23:00 07:00 Intake Total 350 ml 1370 ml Balance 350 ml 1370 ml Exam awake alert oriented x3 speech fluent speaks [place] pleasant mood affect CN: II-XII intact Motor no focal weakness Sensory intact throughout Coordination no ataxia reflexes symmetric Results/Medications Result Diagram: 05/27/17 0742 05/27/17 0742 Results 24 hrs Laboratory Tests Test 05/26/17 20:00 05/26/17 21:00 05/27/17 00:30 05/27/17 07:42 Troponin I 0.016 0.023 Blood Gas Specimen Source Blood arterial Arterial Blood Date Drawn 05/26/2017 9:26:34 PM Arterial Blood pH (Temp corrected) 7.432 Arterial Blood pCO2 (Temp correct) 30.7 L Arterial Blood pO2 (Temp corrected) 90.0 Arterial Blood HCO3 20.0 L Arterial Blood Base Excess -2.9 Arterial Blood Oxygen Saturation 97.7 [place] Test ACCEPTAB Arterial Blood Gas Puncture Site Right Radial Arterial Blood Carboxyhemoglobin 0.4 Arterial Blood Methemoglobin 0.5 Blood Gas A-a O2 Differential 109.5 H Oxyhemoglobin Percent 96.8 Total Hemoglobin 16.3 Blood Gas Temperature 37.0 Blood Gas Modality NASAL CANNULA FiO2 33.0 Blood Gas Notified Whom BR Blood Gas Notified Time 05/26/2017 9:34:13 PM White Blood Count 52.6 H Red Blood Count 4.39 Hemoglobin 12.9 Hematocrit 40.4 Mean Corpuscular Volume 92.0 Mean Corpuscular Hemoglobin 29.4 Mean Corpuscular Hemoglobin Concent 31.9 L Red Cell Distribution Width 13.7 Platelet Count 110 #L Mean Platelet Volume 12.6 H Basophils % Basophils # Prothrombin Time 26.6 H Prothrombin Time Ratio 2.1 INR International Normalized Ratio 2.42 Sodium Level 125 L Potassium Level 4.0 Chloride Level 101 Carbon Dioxide Level 23 Anion Gap 5 L Blood Urea Nitrogen 21 H Creatinine 0.63 Glucose Level 151 Calcium Level 7.4 L Total Bilirubin 0.5 Direct Bilirubin 0.00 Indirect Bilirubin 0.5 Aspartate Amino Transf (AST/SGOT) 47 H Alanine Aminotransferase (ALT/SGPT) 40 Alkaline Phosphatase 118 # Total Protein 6.1 Albumin 3.0 L Globulin 3.10 Albumin/Globulin Ratio 0.96 Medications Current Medications Lubiprostone (Amitiza) 24 mcg BID PO Last administered on 05/27/17 09:01; Admin Dose 24 MCG; Start 05/25/17 at 09:00 Nitroglycerin (Nitroglycerin (Sl Tab) 0.4 Mg) 0.4 tab PRN SL ; Start 05/25/17 at 06:00 Warfarin Sodium (Coumadin) 4 mg DAILY@17 PO Last administered on 05/26/17 16: 05; Admin Dose 4 MG; Start 05/25/17 at 17:00; Status Future hold Pantoprazole (Protonix Tab) 40 mg DAILY@06 PO Last administered on 05/27/17 06 :28; Admin Dose 40 MG; Start 05/26/17 at 06:00 Acetaminophen 650 mg 650 mg Q6H PRN PO PAIN AND OR ELEVATED TEMP Last administered on 05/26/17 22:56; Admin Dose 650 MG; Start 05/25/17 at 06:30 Sodium Chloride 1,000 ml @ 25 mls/hr Q24H IV Last administered on 05/26/17 11 :56; Admin Dose 70 MLS/HR; Start 05/25/17 at 07:00 Levofloxacin/ Dextrose (Levaquin 500mg/ D5W 100 ml (Pmx)) 100 ml @ 100 mls/hr Q24H IVPB Last administered on 05/27/17 06:28; Admin Dose 100 MLS/HR; Start at 07:00 Magnesium Oxide (Mag-Ox 400) 400 mg DAILY PO Last administered on 05/27/17 09: 03; Admin Dose 400 MG; Start 05/26/17 at 09:00 Methylprednisolone Sodium Succinate (Solu-Medrol) 20 mg Q12 IV Last administered on 05/27/17 09:02; Admin Dose 20 MG; Start 05/25/17 at 21:00 Guaifenesin/ Dextromethorphan (Robitussin Dm Liquid Cup) 5 ml Q4H PRN PO COUGH Last administered on 05/26/17 20:55; Admin Dose 5 ML; Start 05/25/17 at 15:00 Diltiazem HCl (Cardizem) 30 mg QID PO Last administered on 05/27/17 09:02; Admin Dose 30 MG; Start 05/25/17 at 17:00 Metoprolol Tartrate 5 mg 5 mg Q4H PRN IV HR>110 Hold SBP<100 Last administered on 05/26/17 15:59; Admin Dose 5 MG; Start 05/25/17 at 15:30 Vancomycin HCl (Vancocin) 250 ml @ 125 mls/hr Q24H IVPB Last administered on 22:56; Admin Dose 125 MLS/HR; Start 05/25/17 at 23:00 Lactobacillus Acidophilus/ Rhamnosus (Culturelle) 1 cap DAILY PO Last administered on 05/27/17 09:03; Admin Dose 1 CAP; Start 05/27/17 at 09:00 Atenolol (Tenormin) 25 mg BID PO Last administered on 05/27/17 09:02; Admin Dose 25 MG; Start 05/26/17 at 21:00 Assessment/Plan Chief Complaint/Hosp Course 76 yo female 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 Diagnosis likely TIA. Repeat Head CT shows no developing areas of infarction. Carotid duplex no stenosis Continue Coumadin as currently being dosed maintain normotensive blood pressure, LDL and HBA1C at target continue current management she may follow up with Dr. Salguero as outpatient, will sign off please reconsult as needed Problems: TYRELL SUGGS MD May 27, 2017 11:04
[2017-05-27] MEDS: SOD CHLORIDE 0.9% 1,000 ML IV SCH (11:28)
[2017-05-27] MEDS: LEVALBUTEROL (NEB) 0.63 MG/3 ML AMP HHN PRN ×2 (12:01→22:49)
--- NOTE | 2017-05-27 12:08 | CONS ---
Date/Time of Note Date/Time of Note DATE: 05/27/17 TIME: 12:06 Assessment/Plan Assessment/Plan Additional Assessment/Plan 1.tachycardia-? S Tach/SVT/pacermaker mediated/secondary to fevers - better now 2.Hypotension - well rx now 3.H/O PAF - rate on high side, with low garde temp 4.Fevers/leukcytosis - on anti-bx 5. TIA - neuro follows 6.UTI - rx with anti-bx Consultation Date/Type/Reason Admit Date/Time May 25, 2017 at 00:06 Initial Consult Date 05/25/17 Type of Consultation: Neurology Referring Provider: DUANE NGUYỄN MD 24 HR Interval Summary Free Text/Dictation No acute events - pt with tachy/sob - con't anti-bx for infection care ROS: + fever, + chills, no nausea, no vomiting, no diarrhea/constipation No recent weight changes No chest pain, no PND, no orthopnea No dizziness, blurred vision No thirst, no heat or cold intolerance Exam/Review of Systems Vital Signs Vitals Vital Signs Date Time Temp Pulse Resp B/P Pulse Ox O2 Delivery O2 Flow Rate FiO2 05/27/17 12:02 4.0 05/27/17 12:02 118 24 97 Nasal Cannula 05/27/17 11:56 98.8 101/55 Intake and Output 05/26/17 05/26/17 05/27/17 15:00 23:00 07:00 Intake Total 350 ml 1370 ml Balance 350 ml 1370 ml Exam General: WN/WD/NAD, AOx 3 HEENT: Unicetric/atraumatic/EOMI (follow commands) NECK: JVD elevated, no thyromegaly Lymph: no lymphadenopathy HEART: regular with no S3, II/ systolic murmur at apex LUNGS: Coarse sounds ABD: soft, NT, ND, +BS : Intact Neuro: non focal SKIN: chronic changes EXT: trace edema Results Result Diagram: 05/27/17 0742 05/27/17 0742 Results 24 hrs Laboratory Tests Test 05/26/17 20:00 05/26/17 21:00 05/27/17 00:30 05/27/17 07:42 Troponin I 0.016 0.023 Blood Gas Specimen Source Blood arterial Arterial Blood Date Drawn 05/26/2017 9:26:34 PM Arterial Blood pH (Temp corrected) 7.432 Arterial Blood pCO2 (Temp correct) 30.7 L Arterial Blood pO2 (Temp corrected) 90.0 Arterial Blood HCO3 20.0 L Arterial Blood Base Excess -2.9 Arterial Blood Oxygen Saturation 97.7 [place] Test ACCEPTAB Arterial Blood Gas Puncture Site Right Radial Arterial Blood Carboxyhemoglobin 0.4 Arterial Blood Methemoglobin 0.5 Blood Gas A-a O2 Differential 109.5 H Oxyhemoglobin Percent 96.8 Total Hemoglobin 16.3 Blood Gas Temperature 37.0 Blood Gas Modality NASAL CANNULA FiO2 33.0 Blood Gas Notified Whom BR Blood Gas Notified Time 05/26/2017 9:34:13 PM White Blood Count 52.6 H Red Blood Count 4.39 Hemoglobin 12.9 Hematocrit 40.4 Mean Corpuscular Volume 92.0 Mean Corpuscular Hemoglobin 29.4 Mean Corpuscular Hemoglobin Concent 31.9 L Red Cell Distribution Width 13.7 Platelet Count 110 #L Mean Platelet Volume 12.6 H Basophils % Basophils # Prothrombin Time 26.6 H Prothrombin Time Ratio 2.1 INR International Normalized Ratio 2.42 Sodium Level 125 L Potassium Level 4.0 Chloride Level 101 Carbon Dioxide Level 23 Anion Gap 5 L Blood Urea Nitrogen 21 H Creatinine 0.63 Glucose Level 151 Calcium Level 7.4 L Total Bilirubin 0.5 Direct Bilirubin 0.00 Indirect Bilirubin 0.5 Aspartate Amino Transf (AST/SGOT) 47 H Alanine Aminotransferase (ALT/SGPT) 40 Alkaline Phosphatase 118 # Total Protein 6.1 Albumin 3.0 L Globulin 3.10 Albumin/Globulin Ratio 0.96 Medications Medications Current Medications Lubiprostone (Amitiza) 24 mcg BID PO Last administered on 05/27/17 09:01; Admin Dose 24 MCG; Start 05/25/17 at 09:00 Nitroglycerin (Nitroglycerin (Sl Tab) 0.4 Mg) 0.4 tab PRN SL ; Start 05/25/17 at 06:00 Warfarin Sodium (Coumadin) 4 mg DAILY@17 PO Last administered on 05/26/17 16: 05; Admin Dose 4 MG; Start 05/25/17 at 17:00; Status Future hold Pantoprazole (Protonix Tab) 40 mg DAILY@06 PO Last administered on 05/27/17 06 :28; Admin Dose 40 MG; Start 05/26/17 at 06:00 Acetaminophen 650 mg 650 mg Q6H PRN PO PAIN AND OR ELEVATED TEMP Last administered on 05/26/17 22:56; Admin Dose 650 MG; Start 05/25/17 at 06:30 Sodium Chloride 1,000 ml @ 25 mls/hr Q24H IV Last administered on 05/27/17 11 :28; Admin Dose 25 MLS/HR; Start 05/25/17 at 07:00 Levofloxacin/ Dextrose (Levaquin 500mg/ D5W 100 ml (Pmx)) 100 ml @ 100 mls/hr Q24H IVPB Last administered on 05/27/17 06:28; Admin Dose 100 MLS/HR; Start at 07:00 Magnesium Oxide (Mag-Ox 400) 400 mg DAILY PO Last administered on 05/27/17 09: 03; Admin Dose 400 MG; Start 05/26/17 at 09:00 Methylprednisolone Sodium Succinate (Solu-Medrol) 20 mg Q12 IV Last administered on 05/27/17 09:02; Admin Dose 20 MG; Start 05/25/17 at 21:00 Guaifenesin/ Dextromethorphan (Robitussin Dm Liquid Cup) 5 ml Q4H PRN PO COUGH Last administered on 05/26/17 20:55; Admin Dose 5 ML; Start 05/25/17 at 15:00 Diltiazem HCl (Cardizem) 30 mg QID PO Last administered on 05/27/17 09:02; Admin Dose 30 MG; Start 05/25/17 at 17:00 Metoprolol Tartrate 5 mg 5 mg Q4H PRN IV HR>110 Hold SBP<100 Last administered on 05/26/17 15:59; Admin Dose 5 MG; Start 05/25/17 at 15:30 Vancomycin HCl (Vancocin) 250 ml @ 125 mls/hr Q24H IVPB Last administered on 22:56; Admin Dose 125 MLS/HR; Start 05/25/17 at 23:00 Lactobacillus Acidophilus/ Rhamnosus (Culturelle) 1 cap DAILY PO Last administered on 05/27/17 09:03; Admin Dose 1 CAP; Start 05/27/17 at 09:00 Atenolol (Tenormin) 25 mg BID PO Last administered on 05/27/17 09:02; Admin Dose 25 MG; Start 05/26/17 at 21:00 JESSA JUNG MD May 27, 2017 12:08
[2017-05-27 13:13] LABS: WHITE BLOOD COUNT 36.8 10^3/ul (4.8-10.8)
[2017-05-27 13:18] LABS: LYMPHOCYTES # 0.5 10^3/ul (0.8-2.9); MONOCYTE # 1.1 10^3/ul (0.3-0.9); NEUTROPHIL # 48.9 10^3/ul (1.6-7.5); PLATELETS CLUMPS MODERATE
[2017-05-27 13:22] LABS: PLATELET ESTIMATE PLT APPEAR ADEQUATE
[2017-05-27] MEDS: GUAIFENESIN/DM 5ML CUP PO PRN ×2 (13:55→23:17)
--- NOTE | 2017-05-27 15:14 | RADRPT ---
PROCEDURE: US left upper extremity veins. CLINICAL INDICATION: Left arm pain and swelling. TECHNIQUE: Multiple longitudinal and transverse images of the left upper extremity venous tree was obtained with husain scale, pulsed Doppler, and color Doppler imaging. COMPARISON: None available FINDINGS: The left subclavian, axillary, brachial, basilic, antecubital, and cephalic veins are patent with no rmal flow and compressibility. There is partial thrombosis of the left internal jugular vein with p artial flow and partial compressibility. IMPRESSION: 1. 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 2. Otherwise normal venous system of the left upper extremity. RPTAT: QQ .Isiah Lamar MD, MD Date Time Electronically viewed and signed by .Isiah Lamar MD, MD on 05/27/2017 15:13 .R/
[2017-05-27] MEDS: WARFARIN 2 MG TAB PO SCH (17:35)
--- NOTE | 2017-05-27 20:28 | PN ---
Date/Time of Note Date/Time of Note DATE: 05/27/17 TIME: 20:27 Assessment/Plan VTE Prophylaxis VTE Prophylaxis Intervention: other Lines/Catheters IV Catheter Type (from Nrs): Peripheral IV Urinary Cath still in place: No Assessment/Plan Chief Complaint/Hosp Course SEPSIS AFIB HTN ASHD hyponatremia UTI LOW EF vicki platelet PLAN LASIX ANTIBIOTIC dc vanco Problems: Subjective 24 Hr Interval Summary Subjective hx not possible: other (sob betterno cp) Cardiovascular: no complaints Gastrointestinal: no complaints Genitourinary: no complaints Exam/Review of Systems Vital Signs Vitals Vital Signs Date Time Temp Pulse Resp B/P Pulse Ox O2 Delivery O2 Flow Rate FiO2 05/27/17 19:38 98.1 75 18 117/59 98 05/27/17 12:02 4.0 05/27/17 12:02 Nasal Cannula Intake and Output 05/26/17 05/26/17 05/27/17 14:59 22:59 06:59 Intake Total 350 ml 1370 ml Balance 350 ml 1370 ml Exam Neck: supple Respiratory: clear to auscultation Cardiovascular: irregular rhythm Gastrointestinal: soft Musculoskeletal: nl extremities to inspection Results Result Diagram: 05/27/17 0742 05/27/17 0742 Results 24 hrs Laboratory Tests Test 05/26/17 21:00 05/27/17 00:30 05/27/17 07:42 Blood Gas Specimen Source Blood arterial Arterial Blood Date Drawn 05/26/2017 9:26:34 PM Arterial Blood pH (Temp corrected) 7.432 Arterial Blood pCO2 (Temp correct) 30.7 L Arterial Blood pO2 (Temp corrected) 90.0 Arterial Blood HCO3 20.0 L Arterial Blood Base Excess -2.9 Arterial Blood Oxygen Saturation 97.7 [place] Test ACCEPTAB Arterial Blood Gas Puncture Site Right Radial Arterial Blood Carboxyhemoglobin 0.4 Arterial Blood Methemoglobin 0.5 Blood Gas A-a O2 Differential 109.5 H Oxyhemoglobin Percent 96.8 Total Hemoglobin 16.3 Blood Gas Temperature 37.0 Blood Gas Modality NASAL CANNULA FiO2 33.0 Blood Gas Notified Whom BR Blood Gas Notified Time 05/26/2017 9:34:13 PM Troponin I 0.023 White Blood Count 52.6 H Red Blood Count 4.39 Hemoglobin 12.9 Hematocrit 40.4 Mean Corpuscular Volume 92.0 Mean Corpuscular Hemoglobin 29.4 Mean Corpuscular Hemoglobin Concent 31.9 L Red Cell Distribution Width 13.7 Platelet Count 110 #L Mean Platelet Volume 12.6 H Neutrophils % 93.0 H Band Neutrophils % 4.0 Lymphocytes % 1.0 L Monocytes % 2.0 Basophils % Neutrophils # 48.9 H Lymphocytes # 0.5 L Monocytes # 1.1 H Basophils # Platelet Estimate PLT APPEAR ADEQUATE Clumped Platelets MODERATE Prothrombin Time 26.6 H Prothrombin Time Ratio 2.1 INR International Normalized Ratio 2.42 Sodium Level 125 L Potassium Level 4.0 Chloride Level 101 Carbon Dioxide Level 23 Anion Gap 5 L Blood Urea Nitrogen 21 H Creatinine 0.63 Glucose Level 151 Calcium Level 7.4 L Total Bilirubin 0.5 Direct Bilirubin 0.00 Indirect Bilirubin 0.5 Aspartate Amino Transf (AST/SGOT) 47 H Alanine Aminotransferase (ALT/SGPT) 40 Alkaline Phosphatase 118 # Total Protein 6.1 Albumin 3.0 L Globulin 3.10 Albumin/Globulin Ratio 0.96 Medications Medications Current Medications Lubiprostone (Amitiza) 24 mcg BID PO Last administered on 05/27/17 09:01; Admin Dose 24 MCG; Start 05/25/17 at 09:00 Nitroglycerin (Nitroglycerin (Sl Tab) 0.4 Mg) 0.4 tab PRN SL ; Start 05/25/17 at 06:00 Warfarin Sodium (Coumadin) 4 mg DAILY@17 PO Last administered on 05/27/17 17: 35; Admin Dose 4 MG; Start 05/25/17 at 17:00; Status Future hold Pantoprazole (Protonix Tab) 40 mg DAILY@06 PO Last administered on 05/27/17 06 :28; Admin Dose 40 MG; Start 05/26/17 at 06:00 Acetaminophen 650 mg 650 mg Q6H PRN PO PAIN AND OR ELEVATED TEMP Last administered on 05/26/17 22:56; Admin Dose 650 MG; Start 05/25/17 at 06:30 Sodium Chloride 1,000 ml @ 25 mls/hr Q24H IV Last administered on 05/27/17 11 :28; Admin Dose 25 MLS/HR; Start 05/25/17 at 07:00 Levofloxacin/ Dextrose (Levaquin 500mg/ D5W 100 ml (Pmx)) 100 ml @ 100 mls/hr Q24H IVPB Last administered on 05/27/17 06:28; Admin Dose 100 MLS/HR; Start at 07:00 Magnesium Oxide (Mag-Ox 400) 400 mg DAILY PO Last administered on 05/27/17 09: 03; Admin Dose 400 MG; Start 05/26/17 at 09:00 Guaifenesin/ Dextromethorphan (Robitussin Dm Liquid Cup) 5 ml Q4H PRN PO COUGH Last administered on 05/27/17 13:55; Admin Dose 5 ML; Start 05/25/17 at 15:00 Diltiazem HCl (Cardizem) 30 mg QID PO Last administered on 05/27/17 17:36; Admin Dose 30 MG; Start 05/25/17 at 17:00 Metoprolol Tartrate 5 mg 5 mg Q4H PRN IV HR>110 Hold SBP<100 Last administered on 05/26/17 15:59; Admin Dose 5 MG; Start 05/25/17 at 15:30 Vancomycin HCl (Vancocin) 250 ml @ 125 mls/hr Q24H IVPB Last administered on 22:56; Admin Dose 125 MLS/HR; Start 05/25/17 at 23:00 Lactobacillus Acidophilus/ Rhamnosus (Culturelle) 1 cap DAILY PO Last administered on 05/27/17 09:03; Admin Dose 1 CAP; Start 05/27/17 at 09:00 Atenolol (Tenormin) 25 mg BID PO Last administered on 05/27/17 09:02; Admin Dose 25 MG; Start 05/26/17 at 21:00 Prednisone (Prednisone) 10 mg ONCE ONCE PO ; Start 05/27/17 at 21:00; Stop 10/03 at 21:01 Prednisone (Prednisone) 5 mg ONCE ONCE PO ; Start 05/28/17 at 09:00; Stop 05/28 at 09:01 DUANE NGUYỄN MD May 27, 2017 20:28
[2017-05-27] MEDS ORDERED: predniSONE 10 MG TAB PO ONE (21:00)
[2017-05-28] VITALS (12 sets, daily range): BP systolic 105–142; BP diastolic 55–66; PULSE 75–76; RESP 17–20
[2017-05-28] MEDS: SOD CHLORIDE 0.9% 1,000 ML IV SCH ×4 (05:20→21:13)
[2017-05-28] MEDS: FUROSEMIDE 20 MG INJ IV SCH ×2 (06:46→17:48)
[2017-05-28] MEDS: LEVOFLOXACIN 500MG/D5W (PMX) 100 ML IVPB SCH (06:46)
[2017-05-28] MEDS: LEVOTHYROXINE 75 MCG TAB PO SCH (06:46)
[2017-05-28] MEDS: PANTOPRAZOLE (EC) 40 MG TAB PO SCH (06:46)
[2017-05-28] MEDS: LACTOBACILLUS RHAMNOSUS CAP PO SCH (08:55)
[2017-05-28] MEDS: LUBIPROSTONE 24 MCG CAP PO SCH ×2 (08:55→21:12)
[2017-05-28] MEDS: ATENOLOL 25 MG TAB PO SCH ×2 (08:56→21:12)
[2017-05-28] MEDS: MAGNESIUM OXIDE 400 MG TAB PO SCH (08:56)
[2017-05-28] MEDS: DILTIAZEM 30 MG TAB PO SCH ×4 (08:57→21:12)
[2017-05-28] MEDS ORDERED: predniSONE 5 MG TAB PO ONE (09:00)
[2017-05-28 09:05] LABS: ADD SCAN DIFF NO
[2017-05-28 09:09] LABS: ABNORMAL IP MESSAGE 1; BASOPHIL # 0.2 10^3/ul (0.0-0.1); BASOPHILS % 0.3 % (0.0-2.0); HEMATOCRIT 39.2 % (37.0-47.0); HEMOGLOBIN 13.2 g/dl (12.0-16.0); LYMPHOCYTES # 0.4 10^3/ul (0.8-2.9); LYMPHOCYTES % 0.8 % (15.0-51.0); MEAN CORPUSCULAR HEMOGLOBIN 30.3 pg (29.0-33.0); MEAN CORPUSCULAR HGB CONC 33.7 g/dl (32.0-37.0); MEAN CORPUSCULAR VOLUME 89.9 fl (82.0-101.0); MEAN PLATELET VOLUME 12.4 fl (7.4-10.4); MONOCYTE # 1.8 10^3/ul (0.3-0.9); MONOCYTES % 3.5 % (0.0-11.0); NEUTROPHIL # 48.2 10^3/ul (1.6-7.5); NEUTROPHILS % 93.3 % (39.0-77.0); PLATELET COUNT 233 10^3/UL (140-415); RED BLOOD COUNT 4.36 10^6/ul (4.20-5.40)
[2017-05-28 09:18] LABS: WHITE BLOOD COUNT 51.7 10^3/ul (4.8-10.8)
[2017-05-28 09:29] LABS: INR 3.39; PROTIME 34.8 Sec (12.2-14.2); PT RATIO 2.7
[2017-05-28 09:31] LABS: ALBUMIN 2.9 g/dl (3.3-4.9); ALBUMIN/GLOBULIN RATIO 0.93; BILIRUBIN,INDIRECT 0.3 mg/dl (0-1.1); BILIRUBIN,TOTAL 0.3 mg/dl (0.2-1.3); CALCIUM 8.2 mg/dl (8.4-10.2); CREATININE 0.75 mg/dl (0.44-1.00); POTASSIUM 4.5 mmol/L (3.5-5.1)
--- NOTE | 2017-05-28 13:45 | CONS ---
Date/Time of Note Date/Time of Note DATE: 05/28/17 TIME: 13:38 Assessment/Plan Assessment/Plan Chief Complaint/Hosp Course IMP: 1.tachycardia-? S Tach/SVT/pacermaker mediated/secondary to fevers- now improved on current regimen. [facility] device 2.Hypotension-improved/stable/tolerating medications 3.H/O PAF 4.Fevers/leukcytosis-increased significantly 5. TIA 6.UTI Recc: -Tele -Continue diltiazem/BB -Continue abx's and f/u cx data -treat fevers -To have [facility] PPM interrogated/my office will contact -Hold coumadin and f/u Problems: Consultation Date/Type/Reason Admit Date/Time May 25, 2017 at 00:06 Initial Consult Date 05/25/17 Type of Consultation: cardiology Reason for Consultation tachycardia Referring Provider: DUANE NGUYỄN MD Exam/Review of Systems Vital Signs Vitals Vital Signs Date Time Temp Pulse Resp B/P Pulse Ox O2 Delivery O2 Flow Rate FiO2 05/28/17 12:19 4.0 05/28/17 12:06 75 05/28/17 11:32 98.8 17 134/64 98 05/28/17 10:37 Nasal Cannula Intake and Output 05/27/17 05/27/17 05/28/17 15:00 23:00 07:00 Intake Total 300 ml 200 ml Balance 300 ml 200 ml Exam Review of Systems: CONSTITUTIONAL: No fevers, chills. PULMONARY: No sob CARDIOVASCULAR: No chest pain/palpitations GASTROINTESTINAL: c/o abd pain GENITOURINARY: No hematuria/dysuria. MUSCULOSKELETAL: No myagias/arthalgias. PSYCHIATRIC: The patient denies depression. NEUROLOGIC: No weakness Constitutional: alert Psych: no complaints Head: normocephalic ENMT: mucosa pink and moist Neck: jvd (9 cm water), supple Respiratory: diminished breath sounds (at bases/B) Cardiovascular: regular rate and rhythm Gastrointestinal: distended, other (mild TTP), soft Musculoskeletal: muscle weakness (generalized) Extremities: edema (none) Neurological: lethargic Results Result Diagram: 05/28/1718 05/28/1718 Results 24 hrs Laboratory Tests Test 05/28/17 07:18 White Blood Count 51.7 H Red Blood Count 4.36 Hemoglobin 13.2 Hematocrit 39.2 Mean Corpuscular Volume 89.9 Mean Corpuscular Hemoglobin 30.3 Mean Corpuscular Hemoglobin Concent 33.7 Red Cell Distribution Width 14.0 Platelet Count 233 # Mean Platelet Volume 12.4 H Neutrophils % 93.3 H Lymphocytes % 0.8 L Monocytes % 3.5 Eosinophils % 0.0 Basophils % 0.3 Nucleated Red Blood Cells % 0.0 Neutrophils # 48.2 H Lymphocytes # 0.4 L Monocytes # 1.8 H Eosinophils # 0.0 Basophils # 0.2 H Nucleated Red Blood Cells # 0.0 Prothrombin Time 34.8 #H Prothrombin Time Ratio 2.7 INR International Normalized Ratio 3.39 Sodium Level 126 L Potassium Level 4.5 Chloride Level 99 Carbon Dioxide Level 24 Anion Gap 8 Blood Urea Nitrogen 33 #H Creatinine 0.75 Glucose Level 116 Calcium Level 8.2 L Total Bilirubin 0.3 Direct Bilirubin 0.00 Indirect Bilirubin 0.3 Aspartate Amino Transf (AST/SGOT) 48 H Alanine Aminotransferase (ALT/SGPT) 44 Alkaline Phosphatase 124 H Total Protein 6.0 L Albumin 2.9 L Globulin 3.10 Albumin/Globulin Ratio 0.93 Medications Medications Current Medications Lubiprostone (Amitiza) 24 mcg BID PO Last administered on 05/28/17 08:55; Admin Dose 24 MCG; Start 05/25/17 at 09:00 Nitroglycerin (Nitroglycerin (Sl Tab) 0.4 Mg) 0.4 tab PRN SL ; Start 05/25/17 at 06:00 Warfarin Sodium (Coumadin) 4 mg DAILY@17 PO Last administered on 05/27/17 17: 35; Admin Dose 4 MG; Start 05/25/17 at 17:00; Status Future hold Pantoprazole (Protonix Tab) 40 mg DAILY@06 PO Last administered on 05/28/17 06 :46; Admin Dose 40 MG; Start 05/26/17 at 06:00 Acetaminophen 650 mg 650 mg Q6H PRN PO PAIN AND OR ELEVATED TEMP Last administered on 05/26/17 22:56; Admin Dose 650 MG; Start 05/25/17 at 06:30 Sodium Chloride 1,000 ml @ 25 mls/hr Q24H IV Last administered on 05/27/17 11 :28; Admin Dose 25 MLS/HR; Start 05/25/17 at 07:00 Levofloxacin/ Dextrose (Levaquin 500mg/ D5W 100 ml (Pmx)) 100 ml @ 100 mls/hr Q24H IVPB Last administered on 05/28/17 06:46; Admin Dose 100 MLS/HR; Start at 07:00 Magnesium Oxide (Mag-Ox 400) 400 mg DAILY PO Last administered on 05/28/17 08: 56; Admin Dose 400 MG; Start 05/26/17 at 09:00 Guaifenesin/ Dextromethorphan (Robitussin Dm Liquid Cup) 5 ml Q4H PRN PO COUGH Last administered on 05/27/17 23:17; Admin Dose 5 ML; Start 05/25/17 at 15:00 Diltiazem HCl (Cardizem) 30 mg QID PO Last administered on 05/28/17 13:04; Admin Dose 30 MG; Start 05/25/17 at 17:00 Metoprolol Tartrate (Lopressor) 5 mg Q4H PRN IV HR>110 Hold SBP<100 Last administered on 05/26/17 15:59; Admin Dose 5 MG; Start 05/25/17 at 15:30 Lactobacillus Acidophilus/ Rhamnosus (Culturelle) 1 cap DAILY PO Last administered on 05/28/17 08:55; Admin Dose 1 CAP; Start 05/27/17 at 09:00 Atenolol 25 mg 25 mg BID PO Last administered on 05/28/17 08:56; Admin Dose 25 MG; Start 05/26/17 at 21:00 Sodium Chloride (NS) 1,000 ml @ 40 mls/hr Q24H IV Last administered on 10:59; Admin Dose 40 MLS/HR; Start 05/28/17 at 11:00 PLACIDO COREA May 28, 2017 13:45
[2017-05-28] MEDS: WARFARIN 2 MG TAB PO SCH (17:47)
--- NOTE | 2017-05-28 18:33 | CONS ---
Date/Time of Note Date/Time of Note DATE: 05/28/17 TIME: 18:32 Consultation Date/Type/Reason Admit Date/Time May 25, 2017 at 00:06 Type of Consultation: ID Constitutional: no complaints Eyes: no complaints ENT: no complaints Respiratory: shortness of breath (+) Cardiovascular: no complaints Gastrointestinal: no complaints Genitourinary: no complaints Musculoskeletal: no complaints Skin: no complaints Neurologic: no complaints Endocrine: no complaints Lymphatic: no complaints Psychological: no complaints Immunologic: no complaints Past Medical History Medical History: other (Atrial fibrillation) Past Surgical History Past Surgical Hx: other (Pacemaker, mitral valve replacement) Social History Alcohol Use: none Smoking Status: Never smoker Drug Use: none Exam/Review of Systems Vital Signs Vitals Vital Signs Date Time Temp Pulse Resp B/P Pulse Ox O2 Delivery O2 Flow Rate FiO2 05/28/17 16:06 75 05/28/17 15:39 98.3 18 129/66 97 05/28/17 12:19 4.0 05/28/17 10:37 Nasal Cannula Intake and Output 05/27/17 05/27/17 05/28/17 15:00 23:00 07:00 Intake Total 300 ml 200 ml Balance 300 ml 200 ml Results Result Diagram: 05/28/1718 05/28/17 0718 Results 24 hrs Laboratory Tests Test 05/28/17 07:18 White Blood Count 51.7 H Red Blood Count 4.36 Hemoglobin 13.2 Hematocrit 39.2 Mean Corpuscular Volume 89.9 Mean Corpuscular Hemoglobin 30.3 Mean Corpuscular Hemoglobin Concent 33.7 Red Cell Distribution Width 14.0 Platelet Count 233 # Mean Platelet Volume 12.4 H Neutrophils % 93.3 H Lymphocytes % 0.8 L Monocytes % 3.5 Eosinophils % 0.0 Basophils % 0.3 Nucleated Red Blood Cells % 0.0 Neutrophils # 48.2 H Lymphocytes # 0.4 L Monocytes # 1.8 H Eosinophils # 0.0 Basophils # 0.2 H Nucleated Red Blood Cells # 0.0 Prothrombin Time 34.8 #H Prothrombin Time Ratio 2.7 INR International Normalized Ratio 3.39 Sodium Level 126 L Potassium Level 4.5 Chloride Level 99 Carbon Dioxide Level 24 Anion Gap 8 Blood Urea Nitrogen 33 #H Creatinine 0.75 Glucose Level 116 Calcium Level 8.2 L Total Bilirubin 0.3 Direct Bilirubin 0.00 Indirect Bilirubin 0.3 Aspartate Amino Transf (AST/SGOT) 48 H Alanine Aminotransferase (ALT/SGPT) 44 Alkaline Phosphatase 124 H Total Protein 6.0 L Albumin 2.9 L Globulin 3.10 Albumin/Globulin Ratio 0.93 Medications Medications Current Medications Lubiprostone (Amitiza) 24 mcg BID PO Last administered on 05/28/17 08:55; Admin Dose 24 MCG; Start 05/25/17 at 09:00 Nitroglycerin (Nitroglycerin (Sl Tab) 0.4 Mg) 0.4 tab PRN SL ; Start 05/25/17 at 06:00 Warfarin Sodium (Coumadin) 4 mg DAILY@17 PO Last administered on 05/28/17 17: 47; Admin Dose 4 MG; Start 05/25/17 at 17:00; Status Future hold Pantoprazole (Protonix Tab) 40 mg DAILY@06 PO Last administered on 05/28/17 06 :46; Admin Dose 40 MG; Start 05/26/17 at 06:00 Acetaminophen 650 mg 650 mg Q6H PRN PO PAIN AND OR ELEVATED TEMP Last administered on 05/26/17 22:56; Admin Dose 650 MG; Start 05/25/17 at 06:30 Sodium Chloride 1,000 ml @ 25 mls/hr Q24H IV Last administered on 05/27/17 11 :28; Admin Dose 25 MLS/HR; Start 05/25/17 at 07:00 Levofloxacin/ Dextrose (Levaquin 500mg/ D5W 100 ml (Pmx)) 100 ml @ 100 mls/hr Q24H IVPB Last administered on 05/28/17 06:46; Admin Dose 100 MLS/HR; Start at 07:00 Magnesium Oxide (Mag-Ox 400) 400 mg DAILY PO Last administered on 05/28/17 08: 56; Admin Dose 400 MG; Start 05/26/17 at 09:00 Guaifenesin/ Dextromethorphan (Robitussin Dm Liquid Cup) 5 ml Q4H PRN PO COUGH Last administered on 05/27/17 23:17; Admin Dose 5 ML; Start 05/25/17 at 15:00 Diltiazem HCl (Cardizem) 30 mg QID PO Last administered on 05/28/17 17:47; Admin Dose 30 MG; Start 05/25/17 at 17:00 Metoprolol Tartrate (Lopressor) 5 mg Q4H PRN IV HR>110 Hold SBP<100 Last administered on 05/26/17 15:59; Admin Dose 5 MG; Start 05/25/17 at 15:30 Lactobacillus Acidophilus/ Rhamnosus (Culturelle) 1 cap DAILY PO Last administered on 05/28/17 08:55; Admin Dose 1 CAP; Start 05/27/17 at 09:00 Atenolol 25 mg 25 mg BID PO Last administered on 05/28/17 08:56; Admin Dose 25 MG; Start 05/26/17 at 21:00 Sodium Chloride (NS) 1,000 ml @ 40 mls/hr Q24H IV Last administered on 10:59; Admin Dose 40 MLS/HR; Start 05/28/17 at 11:00 BARRY REYES MD May 28, 2017 18:33
[2017-05-28] MEDS: GUAIFENESIN/DM 5ML CUP PO PRN (18:39)
[2017-05-28] MEDS: LEVALBUTEROL (NEB) 0.63 MG/3 ML AMP HHN PRN (20:35)
--- NOTE | 2017-05-28 20:49 | PN ---
Date/Time of Note Date/Time of Note DATE: 05/28/17 TIME: 20:48 Assessment/Plan VTE Prophylaxis VTE Prophylaxis Intervention: other Lines/Catheters IV Catheter Type (from Nrs): Peripheral IV Urinary Cath still in place: No Assessment/Plan Chief Complaint/Hosp Course SEPSIS AFIB HTN ASHD hyponatremia UTI LOW EF vicki platelet PLAN LASIX ANTIBIOTIC dc vanco id consult dr tovar to see Problems: Subjective 24 Hr Interval Summary Respiratory: no complaints Cardiovascular: no complaints Genitourinary: no complaints Exam/Review of Systems Vital Signs Vitals Vital Signs Date Time Temp Pulse Resp B/P Pulse Ox O2 Delivery O2 Flow Rate FiO2 05/28/17 20:35 24 95 Nasal Cannula 4.0 05/28/17 20:10 76 05/28/17 20:00 98.6 142/63 Intake and Output 05/27/17 05/27/17 05/28/17 15:00 23:00 07:00 Intake Total 300 ml 200 ml Balance 300 ml 200 ml Exam Respiratory: clear to auscultation Cardiovascular: regular rate and rhythm Gastrointestinal: soft Musculoskeletal: nl extremities to inspection Results Result Diagram: 05/28/1718 05/28/1718 Results 24 hrs Laboratory Tests Test 05/28/17 07:18 White Blood Count 51.7 H Red Blood Count 4.36 Hemoglobin 13.2 Hematocrit 39.2 Mean Corpuscular Volume 89.9 Mean Corpuscular Hemoglobin 30.3 Mean Corpuscular Hemoglobin Concent 33.7 Red Cell Distribution Width 14.0 Platelet Count 233 # Mean Platelet Volume 12.4 H Neutrophils % 93.3 H Lymphocytes % 0.8 L Monocytes % 3.5 Eosinophils % 0.0 Basophils % 0.3 Nucleated Red Blood Cells % 0.0 Neutrophils # 48.2 H Lymphocytes # 0.4 L Monocytes # 1.8 H Eosinophils # 0.0 Basophils # 0.2 H Nucleated Red Blood Cells # 0.0 Prothrombin Time 34.8 #H Prothrombin Time Ratio 2.7 INR International Normalized Ratio 3.39 Sodium Level 126 L Potassium Level 4.5 Chloride Level 99 Carbon Dioxide Level 24 Anion Gap 8 Blood Urea Nitrogen 33 #H Creatinine 0.75 Glucose Level 116 Calcium Level 8.2 L Total Bilirubin 0.3 Direct Bilirubin 0.00 Indirect Bilirubin 0.3 Aspartate Amino Transf (AST/SGOT) 48 H Alanine Aminotransferase (ALT/SGPT) 44 Alkaline Phosphatase 124 H Total Protein 6.0 L Albumin 2.9 L Globulin 3.10 Albumin/Globulin Ratio 0.93 Medications Medications Current Medications Lubiprostone (Amitiza) 24 mcg BID PO Last administered on 05/28/17 08:55; Admin Dose 24 MCG; Start 05/25/17 at 09:00 Nitroglycerin (Nitroglycerin (Sl Tab) 0.4 Mg) 0.4 tab PRN SL ; Start 05/25/17 at 06:00 Warfarin Sodium (Coumadin) 4 mg DAILY@17 PO Last administered on 05/28/17 17: 47; Admin Dose 4 MG; Start 05/25/17 at 17:00; Status Future hold Pantoprazole (Protonix Tab) 40 mg DAILY@06 PO Last administered on 05/28/17 06 :46; Admin Dose 40 MG; Start 05/26/17 at 06:00 Acetaminophen 650 mg 650 mg Q6H PRN PO PAIN AND OR ELEVATED TEMP Last administered on 05/26/17 22:56; Admin Dose 650 MG; Start 05/25/17 at 06:30 Sodium Chloride (NS) 1,000 ml @ 25 mls/hr Q24H IV Last administered on 11:28; Admin Dose 25 MLS/HR; Start 05/25/17 at 07:00 Magnesium Oxide (Mag-Ox 400) 400 mg DAILY PO Last administered on 05/28/17 08: 56; Admin Dose 400 MG; Start 05/26/17 at 09:00 Guaifenesin/ Dextromethorphan (Robitussin Dm Liquid Cup) 5 ml Q4H PRN PO COUGH Last administered on 05/28/17 18:39; Admin Dose 5 ML; Start 05/25/17 at 15:00 Diltiazem HCl (Cardizem) 30 mg QID PO Last administered on 05/28/17 17:47; Admin Dose 30 MG; Start 05/25/17 at 17:00 Metoprolol Tartrate (Lopressor) 5 mg Q4H PRN IV HR>110 Hold SBP<100 Last administered on 05/26/17 15:59; Admin Dose 5 MG; Start 05/25/17 at 15:30 Lactobacillus Acidophilus/ Rhamnosus (Culturelle) 1 cap DAILY PO Last administered on 05/28/17 08:55; Admin Dose 1 CAP; Start 05/27/17 at 09:00 Atenolol 25 mg 25 mg BID PO Last administered on 05/28/17 08:56; Admin Dose 25 MG; Start 05/26/17 at 21:00 Sodium Chloride 1,000 ml @ 40 mls/hr Q24H IV Last administered on 05/28/17 10 :59; Admin Dose 40 MLS/HR; Start 05/28/17 at 11:00 Ertapenem/Sodium Chloride (Invanz/NS) 100 ml @ 200 mls/hr Q24H IVPB ; Start 11/02 at 18:30 DUANE NGUYỄN MD May 28, 2017 20:48
[2017-05-28] MEDS: ERTAPENEM SODIUM 1 GM in SOD CHLORIDE 0.9% 100 ML IVPB SCH (21:11)
[2017-05-28] MEDS: ACETAMINOPHEN 325 MG TAB PO PRN (21:16)
[2017-05-29] VITALS (12 sets, daily range): BP systolic 116–149; BP diastolic 57–73; PULSE 75–87; RESP 15–19
[2017-05-29] MEDS ORDERED: HYDROmorphONE 1 MG/ML SYG IV ONE (00:56)
--- NOTE | 2017-05-29 02:30 | RADRPT ---
PROCEDURE: XR Abdomen. CLINICAL INDICATION: Abdominal pain. TECHNIQUE: 2 frontal views of the abdomen. COMPARISON: None. FINDINGS: The bowel gas pattern is unremarkable. There is no bowel obstruction or free air. Cholecystectomy clips are present. The heart is enlarged with a prosthetic valve present. There are mild to modera te compression deformities of the L3 and L4 vertebral bodies. There is diffuse demineralization. T here are degenerative changes of the right hip with joint space narrowing and acetabular protrusio. There is an old fracture of the right inferior pubic ramus. IMPRESSION: Unremarkable bowel gas pattern. Status post cholecystectomy. Mild to mild compression deformities of L3 and L4. Old fracture of the right inferior pubic ramus. 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 .Tao Mendez MD, MD Date Time Electronically viewed and signed by .Tao Mendez MD, MD on 05/29/2017 02:30 .T/
[2017-05-29] MEDS: PANTOPRAZOLE (EC) 40 MG TAB PO SCH (06:22)
[2017-05-29] MEDS: FUROSEMIDE 20 MG INJ IV SCH ×2 (06:22→17:23)
[2017-05-29] MEDS: LEVOTHYROXINE 75 MCG TAB PO SCH (06:22)
[2017-05-29 08:08] LABS: ADD SCAN DIFF NO
[2017-05-29 08:16] LABS: ABNORMAL IP MESSAGE 1; HEMATOCRIT 40.6 % (37.0-47.0); HEMOGLOBIN 13.3 g/dl (12.0-16.0); MEAN CORPUSCULAR HEMOGLOBIN 29.8 pg (29.0-33.0); MEAN CORPUSCULAR HGB CONC 32.8 g/dl (32.0-37.0); MEAN CORPUSCULAR VOLUME 90.8 fl (82.0-101.0); MEAN PLATELET VOLUME 11.7 fl (7.4-10.4); PLATELET COUNT 251 10^3/UL (140-415); RED BLOOD COUNT 4.47 10^6/ul (4.20-5.40); RED CELL DISTRIBUTION WIDTH 14.3 % (11.5-14.5)
[2017-05-29 08:47] LABS: CALCIUM 7.9 mg/dl (8.4-10.2); CREATININE 0.82 mg/dl (0.44-1.00); INR 4.83; POTASSIUM 3.6 mmol/L (3.5-5.1); PROTIME 46.1 Sec (12.2-14.2); PT RATIO 3.6
[2017-05-29] MEDS: LUBIPROSTONE 24 MCG CAP PO SCH ×2 (09:01→21:48)
[2017-05-29] MEDS: DILTIAZEM 30 MG TAB PO SCH ×4 (09:01→21:47)
[2017-05-29] MEDS: LACTOBACILLUS RHAMNOSUS CAP PO SCH (09:01)
[2017-05-29] MEDS: MAGNESIUM OXIDE 400 MG TAB PO SCH (09:01)
[2017-05-29] MEDS: ATENOLOL 25 MG TAB PO SCH ×2 (09:01→21:48)
[2017-05-29] MEDS: POLYETHYLENE GLYCOL 17 GM PACKET PO SCH (09:01)
[2017-05-29 09:49] LABS: LYMPHOCYTES # 1.2 10^3/ul (0.8-2.9); MONOCYTE # 1.9 10^3/ul (0.3-0.9); NEUTROPHIL # 27.9 10^3/ul (1.6-7.5)
[2017-05-29] MEDS: SOD CHLORIDE 0.9% 1,000 ML IV SCH ×2 (11:33→19:24)
--- NOTE | 2017-05-29 13:08 | CONS ---
Date/Time of Note Date/Time of Note DATE: 05/29/17 TIME: 13:08 Assessment/Plan Assessment/Plan Chief Complaint/Hosp Course Patient is alert complaining of left flank pain she is lying comfortably in bed no fevers, no nausea vomiting diarrhea, no dysuria WBC 31 platelets 251 neutrophils 90 BN 34 creatinine 0.82 X-ray of the abdomen revealed unremarkable bowel gas pattern mild to moderate compression deformities of L3 on L4, severe degenerative changes of the right hip Antimicrobials: Invanz. Physical examination: Well-developed, fragile English-speaking elderly woman who is alert in no distress. Head atraumatic normocephalic, sclera nonicteric. Neck is supple. Chest rise symmetrical breath sounds clear diminished basis. Heart: S1, S2. Abdomen soft, bowel tones present. Patient is having left- sided pain on palpation as well as lower back pain. Extremities without cyanosis. Left upper extremity with trace edema. Assessment: 1. Sepsis versus systemic inflammatory response syndrome with persistent leukocytosis 2. UTI per UA 3. Bacteremia with blood culture on admission grew Bacillus species consistent with contaminant 4. Left lung base atelectasis rule out pneumonia 5. Coronary artery disease with a history of mitral valve mechanical prosthesis and ejection fraction of 40% 6. Left sided abdominal and flank pain possibly secondary to recent fall 7. Rule out malignancy Plan: Repeat blood culture and urine cultures and order urine culture, check CT abdomen pelvis and chest, continue on current antimicrobials for now consider hematology evaluation. Discussed with patient and RN Problems: Consultation Date/Type/Reason Admit Date/Time May 25, 2017 at 00:06 Initial Consult Date 05/25/17 Type of Consultation: ID Referring Provider: DUANE NGUYỄN MD Exam/Review of Systems Vital Signs Vitals Vital Signs Date Time Temp Pulse Resp B/P Pulse Ox O2 Delivery O2 Flow Rate FiO2 05/29/17 12:31 79 05/29/17 12:29 98.0 18 149/73 98 05/29/17 00:27 4.0 05/28/17 20:35 Nasal Cannula Intake and Output 05/28/17 05/28/17 05/29/17 15:00 23:00 07:00 Intake Total 800 ml 120 ml Balance 800 ml 120 ml Results Result Diagram: 05/29/17 0722 05/29/17 0722 Results 24 hrs Laboratory Tests Test 05/29/17 07:22 White Blood Count 31.0 #H Red Blood Count 4.47 Hemoglobin 13.3 Hematocrit 40.6 Mean Corpuscular Volume 90.8 Mean Corpuscular Hemoglobin 29.8 Mean Corpuscular Hemoglobin Concent 32.8 Red Cell Distribution Width 14.3 Platelet Count 251 Mean Platelet Volume 11.7 H Neutrophils % 90.0 H Lymphocytes % 4.0 L Monocytes % 6.0 Neutrophils # 27.9 H Lymphocytes # 1.2 Monocytes # 1.9 H Prothrombin Time 46.1 #H Prothrombin Time Ratio 3.6 INR International Normalized Ratio 4.83 Sodium Level 131 L Potassium Level 3.6 Chloride Level 99 Carbon Dioxide Level 32 H Anion Gap 4 L Blood Urea Nitrogen 34 H Creatinine 0.82 Glucose Level 88 Calcium Level 7.9 L Medications Medications Current Medications Lubiprostone (Amitiza) 24 mcg BID PO Last administered on 05/29/17 09:01; Admin Dose 24 MCG; Start 05/25/17 at 09:00 Nitroglycerin (Nitroglycerin (Sl Tab) 0.4 Mg) 0.4 tab PRN SL ; Start 05/25/17 at 06:00 Warfarin Sodium (Coumadin) 4 mg DAILY@17 PO Last administered on 05/28/17 17: 47; Admin Dose 4 MG; Start 05/25/17 at 17:00; Status Future Hold Pantoprazole (Protonix Tab) 40 mg DAILY@06 PO Last administered on 05/29/17 06 :22; Admin Dose 40 MG; Start 05/26/17 at 06:00 Acetaminophen 650 mg 650 mg Q6H PRN PO PAIN AND OR ELEVATED TEMP Last administered on 05/28/17 21:16; Admin Dose 650 MG; Start 05/25/17 at 06:30 Sodium Chloride (NS) 1,000 ml @ 25 mls/hr Q24H IV Last administered on 11:28; Admin Dose 25 MLS/HR; Start 05/25/17 at 07:00 Magnesium Oxide (Mag-Ox 400) 400 mg DAILY PO Last administered on 05/29/17 09: 01; Admin Dose 400 MG; Start 05/26/17 at 09:00 Guaifenesin/ Dextromethorphan (Robitussin Dm Liquid Cup) 5 ml Q4H PRN PO COUGH Last administered on 05/28/17 18:39; Admin Dose 5 ML; Start 05/25/17 at 15:00 Diltiazem HCl (Cardizem) 30 mg QID PO Last administered on 05/29/17 09:01; Admin Dose 30 MG; Start 05/25/17 at 17:00 Metoprolol Tartrate (Lopressor) 5 mg Q4H PRN IV HR>110 Hold SBP<100 Last administered on 05/26/17 15:59; Admin Dose 5 MG; Start 05/25/17 at 15:30 Lactobacillus Acidophilus/ Rhamnosus (Culturelle) 1 cap DAILY PO Last administered on 05/29/17 09:01; Admin Dose 1 CAP; Start 05/27/17 at 09:00 Atenolol 25 mg 25 mg BID PO Last administered on 05/29/17 09:01; Admin Dose 25 MG; Start 05/26/17 at 21:00 Sodium Chloride 1,000 ml @ 40 mls/hr Q24H IV Last administered on 05/29/17 11 :33; Admin Dose 40 MLS/HR; Start 05/28/17 at 11:00 Ertapenem/Sodium Chloride (Invanz/NS) 100 ml @ 200 mls/hr Q24H IVPB Last administered on 05/28/17 21:11; Admin Dose 200 MLS/HR; Start 05/28/17 at 18:30 Polyethylene Glycol (Miralax) 8.5 gm DAILY PO Last administered on 05/29/17 09 :01; Admin Dose 8.5 GM; Start 05/29/17 at 09:00 Hydromorphone HCl (Dilaudid) 0.5 mg Q6H PRN IV PAIN; Start 05/29/17 at 01:00 BALDOMERO STARKS NP May 29, 2017 13:08
[2017-05-29] MEDS ORDERED: BARIUM SULF 2% 450 ML BTL (BERRY SMOOTHIE) PO ONE (13:30)
--- NOTE | 2017-05-29 14:04 | CONS ---
Date/Time of Note Date/Time of Note DATE: 05/29/17 TIME: 13:53 Assessment/Plan Assessment/Plan Chief Complaint/Hosp Course IMP: 1.tachycardia-? S Tach/SVT/pacermaker mediated/secondary to fevers- now improved on current regimen. [facility] device 2.Hypotension-improved/stable/tolerating medications 3.H/O PAF 4.Fevers/leukcytosis-increased significantly 5. TIA 6.UTI 7. coagulopathy 8. L sided rib pain-positive TTP Recc: -Tele -Continue diltiazem/BB -Continue abx's and f/u cx data -treat fevers -Awaiting [facility] PPM interrogation/contacted by my office 05/28 -Hold coumadin and f/u -Follow volume status clsoely Problems: Consultation Date/Type/Reason Admit Date/Time May 25, 2017 at 00:06 Initial Consult Date 05/25/17 Type of Consultation: CARDIOLOGY Reason for Consultation TACHYCARDIA Referring Provider: DUANE NGUYỄN MD Exam/Review of Systems Vital Signs Vitals Vital Signs Date Time Temp Pulse Resp B/P Pulse Ox O2 Delivery O2 Flow Rate FiO2 05/29/17 12:31 79 05/29/17 12:29 98.0 18 149/73 98 05/29/17 00:27 4.0 05/28/17 20:35 Nasal Cannula Intake and Output 05/28/17 05/28/17 05/29/17 15:00 23:00 07:00 Intake Total 800 ml 120 ml Balance 800 ml 120 ml Exam Review of Systems: CONSTITUTIONAL: No fevers, chills. PULMONARY: No sob CARDIOVASCULAR: c/p rib pain on L side GASTROINTESTINAL: No nausea/vomiting. GENITOURINARY: No hematuria/dysuria. MUSCULOSKELETAL: No myagias/arthalgias. PSYCHIATRIC: The patient denies depression. NEUROLOGIC: No weakness Constitutional: alert Psych: no complaints Head: normocephalic ENMT: mucosa pink and moist Neck: jvd (9 cm water), supple Respiratory: diminished breath sounds (at base/B) Cardiovascular: regular rate and rhythm Gastrointestinal: non-tender, soft Musculoskeletal: muscle tone (normal) Extremities: edema (none) Neurological: other (No focal deficts) Results Result Diagram: 05/29/17 0722 05/29/17 0722 Results 24 hrs Laboratory Tests Test 05/29/17 07:22 White Blood Count 31.0 #H Red Blood Count 4.47 Hemoglobin 13.3 Hematocrit 40.6 Mean Corpuscular Volume 90.8 Mean Corpuscular Hemoglobin 29.8 Mean Corpuscular Hemoglobin Concent 32.8 Red Cell Distribution Width 14.3 Platelet Count 251 Mean Platelet Volume 11.7 H Neutrophils % 90.0 H Lymphocytes % 4.0 L Monocytes % 6.0 Neutrophils # 27.9 H Lymphocytes # 1.2 Monocytes # 1.9 H Prothrombin Time 46.1 #H Prothrombin Time Ratio 3.6 INR International Normalized Ratio 4.83 Sodium Level 131 L Potassium Level 3.6 Chloride Level 99 Carbon Dioxide Level 32 H Anion Gap 4 L Blood Urea Nitrogen 34 H Creatinine 0.82 Glucose Level 88 Calcium Level 7.9 L Medications Medications Current Medications Lubiprostone (Amitiza) 24 mcg BID PO Last administered on 05/29/17 09:01; Admin Dose 24 MCG; Start 05/25/17 at 09:00 Nitroglycerin (Nitroglycerin (Sl Tab) 0.4 Mg) 0.4 tab PRN SL ; Start 05/25/17 at 06:00 Warfarin Sodium (Coumadin) 4 mg DAILY@17 PO Last administered on 05/28/17 17: 47; Admin Dose 4 MG; Start 05/25/17 at 17:00; Status Future Hold Pantoprazole (Protonix Tab) 40 mg DAILY@06 PO Last administered on 05/29/17 06 :22; Admin Dose 40 MG; Start 05/26/17 at 06:00 Acetaminophen 650 mg 650 mg Q6H PRN PO PAIN AND OR ELEVATED TEMP Last administered on 05/28/17 21:16; Admin Dose 650 MG; Start 05/25/17 at 06:30 Sodium Chloride (NS) 1,000 ml @ 25 mls/hr Q24H IV Last administered on 11:28; Admin Dose 25 MLS/HR; Start 05/25/17 at 07:00 Magnesium Oxide (Mag-Ox 400) 400 mg DAILY PO Last administered on 05/29/17 09: 01; Admin Dose 400 MG; Start 05/26/17 at 09:00 Guaifenesin/ Dextromethorphan (Robitussin Dm Liquid Cup) 5 ml Q4H PRN PO COUGH Last administered on 05/28/17 18:39; Admin Dose 5 ML; Start 05/25/17 at 15:00 Diltiazem HCl (Cardizem) 30 mg QID PO Last administered on 05/29/17 13:12; Admin Dose 30 MG; Start 05/25/17 at 17:00 Metoprolol Tartrate (Lopressor) 5 mg Q4H PRN IV HR>110 Hold SBP<100 Last administered on 05/26/17 15:59; Admin Dose 5 MG; Start 05/25/17 at 15:30 Lactobacillus Acidophilus/ Rhamnosus (Culturelle) 1 cap DAILY PO Last administered on 05/29/17 09:01; Admin Dose 1 CAP; Start 05/27/17 at 09:00 Atenolol 25 mg 25 mg BID PO Last administered on 05/29/17 09:01; Admin Dose 25 MG; Start 05/26/17 at 21:00 Sodium Chloride 1,000 ml @ 40 mls/hr Q24H IV Last administered on 05/29/17 11 :33; Admin Dose 40 MLS/HR; Start 05/28/17 at 11:00 Ertapenem/Sodium Chloride (Invanz/NS) 100 ml @ 200 mls/hr Q24H IVPB Last administered on 05/28/17 21:11; Admin Dose 200 MLS/HR; Start 05/28/17 at 18:30 Polyethylene Glycol (Miralax) 8.5 gm DAILY PO Last administered on 05/29/17 09 :01; Admin Dose 8.5 GM; Start 05/29/17 at 09:00 Hydromorphone HCl (Dilaudid) 0.5 mg Q6H PRN IV PAIN; Start 05/29/17 at 01:00 PLACIDO COREA May 29, 2017 14:04
[2017-05-29] MEDS: HYDROmorphONE 1 MG/ML SYG IV PRN ×2 (14:16→20:17)
[2017-05-29] MEDS: ERTAPENEM SODIUM 1 GM in SOD CHLORIDE 0.9% 100 ML IVPB SCH (17:22)
[2017-05-29] MEDS ORDERED: IOHEXOL 300MG/ML 150 ML BTL ONE (18:42)
[2017-05-29] MEDS ORDERED: SOD CHLORIDE 0.9% 100 ML ONE (18:42)
[2017-05-29] MEDS: ACETAMINOPHEN 325 MG TAB PO PRN (21:47)
--- NOTE | 2017-05-29 22:59 | CONS ---
Date/Time of Note Date/Time of Note DATE: 05/29/17 TIME: 22:47 Assessment/Plan Assessment/Plan Chief Complaint/Hosp Course 76 yo female on Coumadin admitted for TIA, now with resolved sx, who was found to have partial thrombosis of internal jugular vein. # Thrombosis while on Coumadin - Given that patient has a prosthetic mitral valve, her anticoagulation options are limited to coumadin. Especially since this is a relatively asymptomatic partial thrombosis, I do not think we need to change anticoagulation at this time. - I would recommend to keep the INR between 2.5-3.5. Given INR is >4, can hold coumadin for now # UTI -continue antibiotics #Ischemic Cardiomyopathy -management per cardiology Approximately 40 min were spent at patient's bedside and in coordination of her care Problems: Consultation Date/Type/Reason Admit Date/Time May 25, 2017 at 00:06 Date of Consultation: May 29, 2017 Type of Consultation: Hematology Reason for Consultation 76-year-old woman with past medical history of mitral valve replacement on Coumadin, status post pacemaker and history of atrial fibrillation. Pt was admitted for slurring of speech and blurring of vision and is being managed for a TIA. A CT scan of the brain was unremarkable. Her symptoms had resolved after reaching at hospital. There is no history of weakness, numbness, or swallowing problems. During her hospitalization patient was found with L arm pain. She thus had a doppler Suzanne done of herLeft upper extremity which revealed partial thrombosis of the left internal jugular vein, hence the reason for this consult. Constitutional: no complaints Eyes: no complaints ENT: no complaints Respiratory: no complaints Cardiovascular: no complaints Gastrointestinal: no complaints Genitourinary: no complaints Musculoskeletal: no complaints Skin: no complaints Neurologic: no complaints Endocrine: no complaints Lymphatic: no complaints Psychological: no complaints Immunologic: no complaints Past Medical History afib Medical History: other (Atrial fibrillation) Past Surgical History a/p mitral valve replacement Past Surgical Hx: other (Pacemaker, mitral valve replacement) Family History Significant Family History: no pertinent family hx Social History Alcohol Use: none Smoking Status: Never smoker Drug Use: none Exam/Review of Systems Vital Signs Vitals Vital Signs Date Time Temp Pulse Resp B/P Pulse Ox O2 Delivery O2 Flow Rate FiO2 05/29/17 20:49 4.0 05/29/17 20:00 85 05/29/17 17:20 97.0 18 117/57 98 7/12/17 20:35 Nasal Cannula Intake and Output 05/28/17 05/28/17 05/29/17 15:00 23:00 07:00 Intake Total 800 ml 120 ml Balance 800 ml 120 ml Exam Constitutional: alert, oriented Psych: nl mood/affect, no complaints Head: normocephalic Eyes: nl conjunctiva ENMT: nl external ears & nose Neck: non-tender, supple Respiratory: clear to auscultation, normal air movement Cardiovascular: nl pulses, regular rate and rhythm Gastrointestinal: soft Musculoskeletal: nl extremities to inspection, nl gait and stance Extremities: normal pulses Neurological: [employer] II-XII intact Results Result Diagram: 05/29/1772105/29/17 07 Results 24 hrs Laboratory Tests Test 05/29/17 07:22 White Blood Count 31.0 #H Red Blood Count 4.47 Hemoglobin 13.3 Hematocrit 40.6 Mean Corpuscular Volume 90.8 Mean Corpuscular Hemoglobin 29.8 Mean Corpuscular Hemoglobin Concent 32.8 Red Cell Distribution Width 14.3 Platelet Count 251 Mean Platelet Volume 11.7 H Neutrophils % 90.0 H Lymphocytes % 4.0 L Monocytes % 6.0 Neutrophils # 27.9 H Lymphocytes # 1.2 Monocytes # 1.9 H Prothrombin Time 46.1 #H Prothrombin Time Ratio 3.6 INR International Normalized Ratio 4.83 Sodium Level 131 L Potassium Level 3.6 Chloride Level 99 Carbon Dioxide Level 32 H Anion Gap 4 L Blood Urea Nitrogen 34 H Creatinine 0.82 Glucose Level 88 Calcium Level 7.9 L Medications Medications Current Medications Lubiprostone (Amitiza) 24 mcg BID PO Last administered on 05/29/17 21:48; Admin Dose 24 MCG; Start 05/25/17 at 09:00 Nitroglycerin (Nitroglycerin (Sl Tab) 0.4 Mg) 0.4 tab PRN SL ; Start 05/25/17 at 06:00 Warfarin Sodium (Coumadin) 4 mg DAILY@17 PO Last administered on 05/28/17 17: 47; Admin Dose 4 MG; Start 05/25/17 at 17:00; Status Future Hold Pantoprazole (Protonix Tab) 40 mg DAILY@06 PO Last administered on 05/29/17 06 :22; Admin Dose 40 MG; Start 05/26/17 at 06:00 Acetaminophen 650 mg 650 mg Q6H PRN PO PAIN AND OR ELEVATED TEMP Last administered on 05/29/17 21:47; Admin Dose 650 MG; Start 05/25/17 at 06:30 Sodium Chloride (NS) 1,000 ml @ 25 mls/hr Q24H IV Last administered on 11:28; Admin Dose 25 MLS/HR; Start 05/25/17 at 07:00 Magnesium Oxide (Mag-Ox 400) 400 mg DAILY PO Last administered on 05/29/17 09: 01; Admin Dose 400 MG; Start 05/26/17 at 09:00 Guaifenesin/ Dextromethorphan (Robitussin Dm Liquid Cup) 5 ml Q4H PRN PO COUGH Last administered on 05/28/17 18:39; Admin Dose 5 ML; Start 05/25/17 at 15:00 Diltiazem HCl (Cardizem) 30 mg QID PO Last administered on 05/29/17 21:47; Admin Dose 30 MG; Start 05/25/17 at 17:00 Metoprolol Tartrate (Lopressor) 5 mg Q4H PRN IV HR>110 Hold SBP<100 Last administered on 05/26/17 15:59; Admin Dose 5 MG; Start 05/25/17 at 15:30 Lactobacillus Acidophilus/ Rhamnosus (Culturelle) 1 cap DAILY PO Last administered on 05/29/17 09:01; Admin Dose 1 CAP; Start 05/27/17 at 09:00 Atenolol 25 mg 25 mg BID PO Last administered on 05/29/17 21:48; Admin Dose 25 MG; Start 05/26/17 at 21:00 Sodium Chloride 1,000 ml @ 40 mls/hr Q24H IV Last administered on 05/29/17 11 :33; Admin Dose 40 MLS/HR; Start 05/28/17 at 11:00 Ertapenem/Sodium Chloride (Invanz/NS) 100 ml @ 200 mls/hr Q24H IVPB Last administered on 05/29/17 17:22; Admin Dose 200 MLS/HR; Start 05/28/17 at 18:30 Polyethylene Glycol (Miralax) 8.5 gm DAILY PO Last administered on 05/29/17 09 :01; Admin Dose 8.5 GM; Start 05/29/17 at 09:00 Hydromorphone HCl (Dilaudid) 0.5 mg Q6H PRN IV PAIN Last administered on t 20:17; Admin Dose 0.5 MG; Start 05/29/17 at 01:00 NATACHA SALAMANCA M.D. May 29, 2017 22:58
--- NOTE | 2017-05-29 23:05 | PN ---
Date/Time of Note Date/Time of Note DATE: 05/29/17 TIME: 23:04 Assessment/Plan VTE Prophylaxis VTE Prophylaxis Intervention: other Lines/Catheters IV Catheter Type (from Nrs): Peripheral IV Urinary Cath still in place: No Assessment/Plan Chief Complaint/Hosp Course SEPSIS AFIB HTN ASHD hyponatremia UTI LOW EF vicki platelet better PLAN LASIX ANTIBIOTIC antibiotic Problems: Subjective 24 Hr Interval Summary Respiratory: no complaints Cardiovascular: no complaints Exam/Review of Systems Vital Signs Vitals Vital Signs Date Time Temp Pulse Resp B/P Pulse Ox O2 Delivery O2 Flow Rate FiO2 05/29/17 20:49 4.0 05/29/17 20:00 85 05/29/17 17:20 97.0 18 117/57 98 05/28/17 20:35 Nasal Cannula Intake and Output 05/28/17 05/28/17 05/29/17 15:00 23:00 07:00 Intake Total 800 ml 120 ml Balance 800 ml 120 ml Exam Respiratory: clear to auscultation Cardiovascular: regular rate and rhythm Gastrointestinal: soft Musculoskeletal: nl extremities to inspection Extremities: normal pulses Results Result Diagram: 05/29/1772105/29/1722 Results 24 hrs Laboratory Tests Test 05/29/17 07:22 White Blood Count 31.0 #H Red Blood Count 4.47 Hemoglobin 13.3 Hematocrit 40.6 Mean Corpuscular Volume 90.8 Mean Corpuscular Hemoglobin 29.8 Mean Corpuscular Hemoglobin Concent 32.8 Red Cell Distribution Width 14.3 Platelet Count 251 Mean Platelet Volume 11.7 H Neutrophils % 90.0 H Lymphocytes % 4.0 L Monocytes % 6.0 Neutrophils # 27.9 H Lymphocytes # 1.2 Monocytes # 1.9 H Prothrombin Time 46.1 #H Prothrombin Time Ratio 3.6 INR International Normalized Ratio 4.83 Sodium Level 131 L Potassium Level 3.6 Chloride Level 99 Carbon Dioxide Level 32 H Anion Gap 4 L Blood Urea Nitrogen 34 H Creatinine 0.82 Glucose Level 88 Calcium Level 7.9 L Medications Medications Current Medications Lubiprostone (Amitiza) 24 mcg BID PO Last administered on 05/29/17t 21:48; Admin Dose 24 MCG; Start 05/25/17 at 09:00 Nitroglycerin (Nitroglycerin (Sl Tab) 0.4 Mg) 0.4 tab PRN SL ; Start 05/25/17 at 06:00 Warfarin Sodium (Coumadin) 4 mg DAILY@17 PO Last administered on 05/28/17 17: 47; Admin Dose 4 MG; Start 05/25/17 at 17:00; Status Future Hold Pantoprazole (Protonix Tab) 40 mg DAILY@06 PO Last administered on 05/29/17 06 :22; Admin Dose 40 MG; Start 05/26/17 at 06:00 Acetaminophen 650 mg 650 mg Q6H PRN PO PAIN AND OR ELEVATED TEMP Last administered on 05/29/17 21:47; Admin Dose 650 MG; Start 05/25/17 at 06:30 Sodium Chloride (NS) 1,000 ml @ 25 mls/hr Q24H IV Last administered on 11:28; Admin Dose 25 MLS/HR; Start 05/25/17 at 07:00 Magnesium Oxide (Mag-Ox 400) 400 mg DAILY PO Last administered on 05/29/17 09: 01; Admin Dose 400 MG; Start 05/26/17 at 09:00 Guaifenesin/ Dextromethorphan (Robitussin Dm Liquid Cup) 5 ml Q4H PRN PO COUGH Last administered on 05/28/17 18:39; Admin Dose 5 ML; Start 05/25/17 at 15:00 Diltiazem HCl (Cardizem) 30 mg QID PO Last administered on 05/29/17 21:47; Admin Dose 30 MG; Start 05/25/17 at 17:00 Metoprolol Tartrate (Lopressor) 5 mg Q4H PRN IV HR>110 Hold SBP<100 Last administered on 05/26/17 15:59; Admin Dose 5 MG; Start 05/25/17 at 15:30 Lactobacillus Acidophilus/ Rhamnosus (Culturelle) 1 cap DAILY PO Last administered on 05/29/17 09:01; Admin Dose 1 CAP; Start 05/27/17 at 09:00 Atenolol 25 mg 25 mg BID PO Last administered on 05/29/17 21:48; Admin Dose 25 MG; Start 05/26/17 at 21:00 Sodium Chloride 1,000 ml @ 40 mls/hr Q24H IV Last administered on 05/29/17 11 :33; Admin Dose 40 MLS/HR; Start 05/28/17 at 11:00 Ertapenem/Sodium Chloride (Invanz/NS) 100 ml @ 200 mls/hr Q24H IVPB Last administered on 05/29/17 17:22; Admin Dose 200 MLS/HR; Start 05/28/17 at 18:30 Polyethylene Glycol (Miralax) 8.5 gm DAILY PO Last administered on 05/29/17 09 :01; Admin Dose 8.5 GM; Start 05/29/17 at 09:00 Hydromorphone HCl (Dilaudid) 0.5 mg Q6H PRN IV PAIN Last administered on 20:17; Admin Dose 0.5 MG; Start 05/29/17 at 01:00 DUANE NGUYỄN MD May 29, 2017 23:05
--- NOTE | 2017-05-29 23:10 | RADRPT ---
AMENDMENT: 05/30/2017 2:35:41 PM Isiah Lamar MD The differential diagnosis for the large fluid collection surrounding the left kidney also includes hematoma. PROCEDURE: CT Chest, Abdomen and Pelvis with contrast. CLINICAL INDICATION: Cough. Abdominal and pelvic pain. Leukocytosis. TECHNIQUE: CT scan of the chest, abdomen, and pelvis with intravenous contrast was performed with helical axial sections. The patient was scanned during intravenous injection of 90 ml of Omnipaque- 300 intravenous contrast. 2-D coronal reformatted images were obtained from the axial source images . Total exam DLP is 713.29 mGy-cm. CTDIvol is 10.65 MGy. One or more of the following dose reduct ion techniques were used: Automated exposure control, adjustment of the mA and/or kV according to pa tient size, use of iterative reconstruction technique. COMPARISON: None available FINDINGS: CT chest: There is mild atelectasis at the right lung base and there is moderate atelectasis throughout the le ft lower lobe. The lungs are otherwise clear with no other airspace or interstitial disease. There is no pulmonary nodule or mass lesion. The mediastinum and elsa are normal with no lymphadenopathy or mass. The thoracic aorta is not dilated. There is calcification in the aorta consistent with atherosclero sis. The heart is enlarged. There is a mitral valve prosthesis. There is a left-sided biventricula r pacemaker with leads in the right atrium, right ventricle, and coronary sinus. There is extensive coronary artery calcification. There is a small right pleural effusion and moderate left pleural effusion. There is no pericardial effusion. CT abdomen: The liver is normal in size and attenuation. There is no focal hepatic lesion. The gallbladder is surgically absent with clips noted in the gallbladder bed. The bile ducts are no rmal. The spleen is surgically absent with clips noted in the left upper quadrant. The pancreas is abnormal with markedly dilated pancreatic duct and multiple small associated cysts, all measuring less than 2 cm, consistent with probable chronic pancreatitis. Both adrenals are normal with no enlargement or mass. Both kidneys demonstrate normal contrast enhancement. There is a large fluid collection surrounding the left kidney, predominately anterior to the left kidney measuring approximately 4.0 x 9.3 x 10.5 cm in AP, transverse, and cranial caudal dimensions. There is no renal mass or hydronephrosis. The abdominal aorta is not dilated. There is calcification in the aorta consistent with atheroscler osis. There is no retroperitoneal lymphadenopathy or mass. There is gaseous distension of the stomach. The bowel and mesentery are otherwise normal. There is no free fluid or free gas. CT pelvis: There is no pelvic lymphadenopathy or mass. The bladder and distal ureters are normal. The periappendiceal region is unremarkable with no evidence of appendicitis. The bowel and mesentery are normal. There is no free fluid or free gas. Osseous structures: There are degenerative changes of the spine and right hip. There is no acute fracture or lytic lesi on. There is an old healed fracture of the right inferior pubic ramus. There are old compression fr actures of L2, L3, L4, and L5. IMPRESSION: 1. Mild atelectasis at the right lung base and moderate atelectasis throughout the left lower lobe. 2. Atherosclerosis. 3. Cardiomegaly. 4. Mitral valve replacement. 5. Left-sided biventricular permanent pacemaker. 6. Extensive coronary artery calcification. 7. Small right pleural effusion and moderate left pleural effusion. 8. Status post cholecystectomy. 9. Status post splenectomy. 10. Abnormal appearance of the pancreas which may indicate chronic pancreatitis with dilated pancre atic duct and multiple small cysts. 11. Large fluid collection surrounding the left kidney predominantly anteriorly measuring 4.0 x 9.3 x 10.5 cm. This may be due to abscess or pseudocyst. 12. Gaseous distension of the stomach. 13. Degenerative changes of the spine and right hip. 14. Old healed fracture of the right inferior pubic ramus. 15. Old compression fractures of L2, L3, L4, and L5. RPTAT: QQ .Isiah Lamar MD, MD Date Time Electronically viewed and signed by .Isiah Lamar MD, MD on 05/30/2017 14:35 .R/
[2017-05-30] VITALS (11 sets, daily range): BP systolic 96–136; BP diastolic 55–78; PULSE 75–103; RESP 17–20
[2017-05-30] MEDS: PANTOPRAZOLE (EC) 40 MG TAB PO SCH (06:25)
[2017-05-30] MEDS: SOD CHLORIDE 0.9% 1,000 ML IV SCH ×2 (06:25→11:00)
[2017-05-30] MEDS: FUROSEMIDE 20 MG INJ IV SCH ×2 (06:26→17:30)
[2017-05-30] MEDS: LEVOTHYROXINE 75 MCG TAB PO SCH (06:26)
[2017-05-30 08:22] LABS: ABNORMAL IP MESSAGE 1; ADD SCAN DIFF NO; HEMATOCRIT 39.1 % (37.0-47.0); HEMOGLOBIN 13.2 g/dl (12.0-16.0); MEAN CORPUSCULAR HEMOGLOBIN 30.1 pg (29.0-33.0); MEAN CORPUSCULAR HGB CONC 33.8 g/dl (32.0-37.0); MEAN CORPUSCULAR VOLUME 89.3 fl (82.0-101.0); MEAN PLATELET VOLUME 12.5 fl (7.4-10.4); PLATELET COUNT 173 10^3/UL (140-415); RED BLOOD COUNT 4.38 10^6/ul (4.20-5.40); RED CELL DISTRIBUTION WIDTH 13.9 % (11.5-14.5); WHITE BLOOD COUNT 35.7 10^3/ul (4.8-10.8)
[2017-05-30 08:37] LABS: PROTIME 68.4 Sec (12.2-14.2); PT RATIO 5.3
[2017-05-30 08:41] LABS: INR 7.95
[2017-05-30] MEDS: LUBIPROSTONE 24 MCG CAP PO SCH ×2 (09:15→21:19)
[2017-05-30] MEDS: MAGNESIUM OXIDE 400 MG TAB PO SCH (09:16)
[2017-05-30] MEDS: LACTOBACILLUS RHAMNOSUS CAP PO SCH (09:16)
[2017-05-30] MEDS: POLYETHYLENE GLYCOL 17 GM PACKET PO SCH (09:16)
[2017-05-30] MEDS: ATENOLOL 25 MG TAB PO SCH ×2 (09:17→21:00)
[2017-05-30] MEDS: DILTIAZEM 30 MG TAB PO SCH ×4 (09:17→21:00)
[2017-05-30 10:38] LABS: LYMPHOCYTES # 2.1 10^3/ul (0.8-2.9); NEUTROPHIL # 31.1 10^3/ul (1.6-7.5)
[2017-05-30] MEDS ORDERED: VANCOMYCIN IV PER PHARMACY XX SCH (12:00)
[2017-05-30] MEDS: FLUCONAZOLE 100 MG/NS (PMX) 50 ML IVPB SCH (12:40)
[2017-05-30] MEDS ORDERED: MEROPENEM 500MG/50 ML (PMX) 50 ML IVPB SCH (13:00)
[2017-05-30] MEDS ORDERED: VANCOMYCIN 1 GM in NS 250 ML IVPB SCH (13:30)
--- NOTE | 2017-05-30 13:59 | PN ---
Date/Time of Note Date/Time of Note DATE: 05/30/17 TIME: 13:56 Assessment/Plan VTE Prophylaxis VTE Prophylaxis Intervention: ambulation Lines/Catheters IV Catheter Type (from [facility]): Peripheral IV Urinary Cath still in place: No Assessment/Plan Chief Complaint/Hosp Course 1. SEPSIS 2. AFIB, controlled 3. HTN, controlled 4. ASHD 5. hyponatremia 6. recurrent UTI 7. LOW EF 8. low platelets 9. Anemia 10. urinary incontinence 11. Constipation Problems: Assessment/Plan 1. Continue a/b 2. Continue telemetry Subjective 24 Hr Interval Summary Constitutional: no complaints Genitourinary: flank pain (left) Exam/Review of Systems Vital Signs Vitals Vital Signs Date Time Temp Pulse Resp B/P Pulse Ox O2 Delivery O2 Flow Rate FiO2 05/30/17 13:06 Nasal Cannula 05/30/17 12:00 103 05/30/17 11:30 98.1 18 116/60 94 05/30/17 00:23 4.0 Intake and Output 05/29/17 05/29/17 05/30/17 15:00 23:00 07:00 Intake Total 1280 ml 160 ml Output Total 1800 ml Balance -520 ml 160 ml Exam Constitutional: alert, oriented Respiratory: clear to auscultation Cardiovascular: irregular rhythm Gastrointestinal: soft Results Result Diagram: 05/30/17 0706 05/29/17 0722 Results 24 hrs Laboratory Tests Test 05/30/17 07:06 White Blood Count 35.7 H Red Blood Count 4.38 Hemoglobin 13.2 Hematocrit 39.1 Mean Corpuscular Volume 89.3 Mean Corpuscular Hemoglobin 30.1 Mean Corpuscular Hemoglobin Concent 33.8 Red Cell Distribution Width 13.9 Platelet Count 173 # Mean Platelet Volume 12.5 H Neutrophils % 87.0 H Band Neutrophils % 7.0 H Lymphocytes % 6.0 L Neutrophils # 31.1 H Lymphocytes # 2.1 Prothrombin Time 68.4 #H Prothrombin Time Ratio 5.3 INR International Normalized Ratio 7.95 *H Medications Medications Current Medications Lubiprostone (Amitiza) 24 mcg BID PO Last administered on 05/30/17t 09:15; Admin Dose 24 MCG; Start 05/25/17 at 09:00 Nitroglycerin (Nitroglycerin (Sl Tab) 0.4 Mg) 0.4 tab PRN SL ; Start 05/25/17 at 06:00 Warfarin Sodium (Coumadin) 4 mg DAILY@17 PO Last administered on 05/28/17 17: 47; Admin Dose 4 MG; Start 05/25/17 at 17:00; Status Future Hold Pantoprazole (Protonix Tab) 40 mg DAILY@06 PO Last administered on 05/30/17 06 :25; Admin Dose 40 MG; Start 05/26/17 at 06:00 Acetaminophen 650 mg 650 mg Q6H PRN PO PAIN AND OR ELEVATED TEMP Last administered on 05/29/17 21:47; Admin Dose 650 MG; Start 05/25/17 at 06:30 Sodium Chloride (NS) 1,000 ml @ 25 mls/hr Q24H IV Last administered on 11:28; Admin Dose 25 MLS/HR; Start 05/25/17 at 07:00 Magnesium Oxide (Mag-Ox 400) 400 mg DAILY PO Last administered on 05/30/17 09: 16; Admin Dose 400 MG; Start 05/26/17 at 09:00 Guaifenesin/ Dextromethorphan (Robitussin Dm Liquid Cup) 5 ml Q4H PRN PO COUGH Last administered on 05/28/17 18:39; Admin Dose 5 ML; Start 05/25/17 at 15:00 Diltiazem HCl (Cardizem) 30 mg QID PO Last administered on 05/30/17 12:42; Admin Dose 30 MG; Start 05/25/17 at 17:00 Metoprolol Tartrate (Lopressor) 5 mg Q4H PRN IV HR>110 Hold SBP<100 Last administered on 05/26/17 15:59; Admin Dose 5 MG; Start 05/25/17 at 15:30 Lactobacillus Acidophilus/ Rhamnosus (Culturelle) 1 cap DAILY PO Last administered on 05/30/17 09:16; Admin Dose 1 CAP; Start 05/27/17 at 09:00 Atenolol 25 mg 25 mg BID PO Last administered on 05/30/17 09:17; Admin Dose 25 MG; Start 05/26/17 at 21:00 Sodium Chloride (NS) 1,000 ml @ 40 mls/hr Q24H IV Last administered on 06:25; Admin Dose 40 MLS/HR; Start 05/28/17 at 11:00 Polyethylene Glycol (Miralax) 8.5 gm DAILY PO Last administered on 05/30/17 09 :16; Admin Dose 8.5 GM; Start 05/29/17 at 09:00 Hydromorphone HCl 0.5 mg 0.5 mg Q6H PRN IV PAIN Last administered on 05/29/17 20:17; Admin Dose 0.5 MG; Start 05/29/17 at 01:00 Meropenem/Sodium Chloride 50 ml @ 200 mls/hr Q12 IVPB ; Start 05/30/17 at 13:00 Fluconazole/ Sodium Chloride 50 ml @ 50 mls/hr Q24H IVPB Last administered on 12:40; Admin Dose 50 MLS/HR; Start 05/30/17 at 12:30 Vancomycin HCl 250 ml @ 125 mls/hr ONCE IVPB ; Start 05/30/17 at 13:30; Stop at 22:00 Vancomycin HCl/ Sodium Chloride (Vancocin/NS) 150 ml @ 75 mls/hr Q12H IVPB ; Start 05/31/17 at 01:30 RENAY TRAN May 30, 2017 13:59
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
--- NOTE | 2017-05-30 14:46 | CONS ---
Date/Time of Note Date/Time of Note DATE: 05/30/17 TIME: 14:43 Assessment/Plan Assessment/Plan Chief Complaint/Hosp Course No acute changes overnight. Patient is alert, sitting up in a chair, daughter at bedside, no fevers Temperature 98.1 pulse 88 respirations 18 blood pressure 116/60 saturation 94 on nasal cannula WBC 35.7 platelets 173 neutrophils 87 bands 7 lymphs 6 BUN [address] of the chest abdomen revealed large fluid collection surrounding the left kidney measuring 4 x 9.3 x 10.5 cm. Gaseous distention of the stomach. Old healed fracture of the right inferior pubic ramus. Old compression fractures of L2-3-4 and 5. Antibiotics: Vancomycin, fluconazole, meropenem. ID Physical examination: Well-developed, fragile [place]-speaking elderly woman who is alert in no distress. Head atraumatic normocephalic, sclera nonicteric. Neck is supple. Chest rise symmetrical breath sounds clear diminished basis. Heart: S1, S2. Abdomen soft, bowel tones present. Patient is having left- sided pain on palpation as well as lower back pain. Extremities without cyanosis. Left upper extremity with trace edema. Assessment: 1. Sepsis versus systemic inflammatory response syndrome with persistent leukocytosis secondary to #2 2. Left kidney abscess versus pseudocyst 3. Bacteremia with blood culture on admission grew Bacillus species consistent with contaminant 4. Left lung base atelectasis 5. Coronary artery disease with a history of mitral valve mechanical prosthesis and ejection fraction of 40% 6. History of permanent pacemaker 7. Allergy: Penicillin Plan: Clinically stable, pending repeat cultures, continue antibiotics, await for urology evaluation, may require IR guided fluid drainage Discussed with patient and daughter at bedside Problems: Consultation Date/Type/Reason Admit Date/Time May 25, 2017 at 00:06 Initial Consult Date 05/25/17 Type of Consultation: urology Referring Provider: DUANE NGUYỄN MD Exam/Review of Systems Vital Signs Vitals Vital Signs Date Time Temp Pulse Resp B/P Pulse Ox O2 Delivery O2 Flow Rate FiO2 05/30/17 13:06 Nasal Cannula 05/30/17 12:00 103 05/30/17 11:30 98.1 18 116/60 94 05/30/17 00:23 4.0 Intake and Output 05/29/17 05/29/17 05/30/17 15:00 23:00 07:00 Intake Total 1280 ml 160 ml Output Total 1800 ml Balance -520 ml 160 ml Results Result Diagram: 05/30/17 0706 05/29/17 0722 Results 24 hrs Laboratory Tests Test 05/30/17 07:06 White Blood Count 35.7 H Red Blood Count 4.38 Hemoglobin 13.2 Hematocrit 39.1 Mean Corpuscular Volume 89.3 Mean Corpuscular Hemoglobin 30.1 Mean Corpuscular Hemoglobin Concent 33.8 Red Cell Distribution Width 13.9 Platelet Count 173 # Mean Platelet Volume 12.5 H Neutrophils % 87.0 H Band Neutrophils % 7.0 H Lymphocytes % 6.0 L Neutrophils # 31.1 H Lymphocytes # 2.1 Prothrombin Time 68.4 #H Prothrombin Time Ratio 5.3 INR International Normalized Ratio 7.95 *H Medications Medications Current Medications Lubiprostone (Amitiza) 24 mcg BID PO Last administered on 05/30/17 09:15; Admin Dose 24 MCG; Start 05/25/17 at 09:00 Nitroglycerin (Nitroglycerin (Sl Tab) 0.4 Mg) 0.4 tab PRN SL ; Start 05/25/17 at 06:00 Warfarin Sodium (Coumadin) 4 mg DAILY@17 PO Last administered on 05/28/17 17: 47; Admin Dose 4 MG; Start 05/25/17 at 17:00; Status Future Hold Pantoprazole (Protonix Tab) 40 mg DAILY@06 PO Last administered on 05/30/17 06 :25; Admin Dose 40 MG; Start 05/26/17 at 06:00 Acetaminophen 650 mg 650 mg Q6H PRN PO PAIN AND OR ELEVATED TEMP Last administered on 05/29/17 21:47; Admin Dose 650 MG; Start 05/25/17 at 06:30 Sodium Chloride (NS) 1,000 ml @ 25 mls/hr Q24H IV Last administered on 11:28; Admin Dose 25 MLS/HR; Start 05/25/17 at 07:00 Magnesium Oxide (Mag-Ox 400) 400 mg DAILY PO Last administered on 05/30/17 09: 16; Admin Dose 400 MG; Start 05/26/17 at 09:00 Guaifenesin/ Dextromethorphan (Robitussin Dm Liquid Cup) 5 ml Q4H PRN PO COUGH Last administered on 05/28/17 18:39; Admin Dose 5 ML; Start 05/25/17 at 15:00 Diltiazem HCl (Cardizem) 30 mg QID PO Last administered on 05/30/17 12:42; Admin Dose 30 MG; Start 05/25/17 at 17:00 Metoprolol Tartrate (Lopressor) 5 mg Q4H PRN IV HR>110 Hold SBP<100 Last administered on 05/26/17 15:59; Admin Dose 5 MG; Start 05/25/17 at 15:30 Lactobacillus Acidophilus/ Rhamnosus (Culturelle) 1 cap DAILY PO Last administered on 05/30/17 09:16; Admin Dose 1 CAP; Start 05/27/17 at 09:00 Atenolol 25 mg 25 mg BID PO Last administered on 05/30/17 09:17; Admin Dose 25 MG; Start 05/26/17 at 21:00 Sodium Chloride (NS) 1,000 ml @ 40 mls/hr Q24H IV Last administered on 06:25; Admin Dose 40 MLS/HR; Start 05/28/17 at 11:00 Polyethylene Glycol (Miralax) 8.5 gm DAILY PO Last administered on 05/30/17 09 :16; Admin Dose 8.5 GM; Start 05/29/17 at 09:00 Hydromorphone HCl 0.5 mg 0.5 mg Q6H PRN IV PAIN Last administered on 05/29/17 20:17; Admin Dose 0.5 MG; Start 05/29/17 at 01:00 Fluconazole/ Sodium Chloride 50 ml @ 50 mls/hr Q24H IVPB Last administered on 12:40; Admin Dose 50 MLS/HR; Start 05/30/17 at 12:30 Vancomycin HCl 250 ml @ 125 mls/hr ONCE IVPB Last administered on 05/30/17 14 :00; Admin Dose 125 MLS/HR; Start 05/30/17 at 13:30; Stop 05/30/17 at 22:00 Vancomycin HCl 250 ml @ 125 mls/hr Q24H IVPB ; Start 05/31/17 at 14:00 Meropenem/Sodium Chloride (Merrem 1 Gm/50 ml (Pmx)) 50 ml @ 200 mls/hr Q12H IVPB ; Start 05/31/17 at 03:00 BALDOMERO STARKS NP May 30, 2017 14:46
--- NOTE | 2017-05-30 15:42 | CONS ---
Date/Time of Note Date/Time of Note DATE: 05/30/17 TIME: 15:33 Assessment/Plan Assessment/Plan Chief Complaint/Hosp Course IMP: 1.tachycardia-? S Tach/SVT/pacermaker mediated/secondary to fevers- now improved on current regimen. [facility] device 2.Hypotension-improved/stable/tolerating medications 3.H/O PAF 4.Fevers/leukcytosis-increased significantly 5. TIA 6.UTI 7. coagulopathy 8. L sided rib pain-positive TTP/resolved-negative troponin 9. Possible kidney abscess Recc: -Tele -Continue diltiazem/BB -Continue abx's and f/u cx data -treat fevers -pnding urology consult -Awaiting [facility] PPM interrogation/contacted by my office 05/28(re-contacted today?) -Hold coumadin and f/u INR closely -Follow volume status closely Problems: Consultation Date/Type/Reason Admit Date/Time May 25, 2017 at 00:06 Initial Consult Date 05/25/17 Type of Consultation: cardiology Reason for Consultation Tachycardia Referring Provider: DUANE NGUYỄN MD Exam/Review of Systems Vital Signs Vitals Vital Signs Date Time Temp Pulse Resp B/P Pulse Ox O2 Delivery O2 Flow Rate FiO2 05/30/17 13:06 Nasal Cannula 05/30/17 12:00 103 05/30/17 11:30 98.1 18 116/60 94 05/30/17 00:23 4.0 Intake and Output 05/29/17 05/29/17 05/30/17 15:00 23:00 07:00 Intake Total 1280 ml 160 ml Output Total 1800 ml Balance -520 ml 160 ml Exam Review of Systems: CONSTITUTIONAL: No fevers, chills. PULMONARY: mild sob CARDIOVASCULAR: No chest pain/palpitations GASTROINTESTINAL: No nausea/vomiting. GENITOURINARY: No hematuria/dysuria. MUSCULOSKELETAL: No myagias/arthalgias. PSYCHIATRIC: The patient denies depression. NEUROLOGIC: Generalized weakness Constitutional: alert Psych: no complaints Head: normocephalic ENMT: mucosa pink and moist Neck: jvd, supple Respiratory: diminished breath sounds (at bases/B) Cardiovascular: regular rate and rhythm Gastrointestinal: non-tender, soft Musculoskeletal: muscle tone (normal) Extremities: edema (none) Neurological: other (No focal deficits) Results Result Diagram: 05/30/17 0706 05/29/17 0722 Results 24 hrs Laboratory Tests Test 05/30/17 07:06 White Blood Count 35.7 H Red Blood Count 4.38 Hemoglobin 13.2 Hematocrit 39.1 Mean Corpuscular Volume 89.3 Mean Corpuscular Hemoglobin 30.1 Mean Corpuscular Hemoglobin Concent 33.8 Red Cell Distribution Width 13.9 Platelet Count 173 # Mean Platelet Volume 12.5 H Neutrophils % 87.0 H Band Neutrophils % 7.0 H Lymphocytes % 6.0 L Neutrophils # 31.1 H Lymphocytes # 2.1 Prothrombin Time 68.4 #H Prothrombin Time Ratio 5.3 INR International Normalized Ratio 7.95 *H Medications Medications Current Medications Lubiprostone (Amitiza) 24 mcg BID PO Last administered on 05/30/17 09:15; Admin Dose 24 MCG; Start 05/25/17 at 09:00 Nitroglycerin (Nitroglycerin (Sl Tab) 0.4 Mg) 0.4 tab PRN SL ; Start 05/25/17 at 06:00 Warfarin Sodium (Coumadin) 4 mg DAILY@17 PO Last administered on 05/28/17 17: 47; Admin Dose 4 MG; Start 05/25/17 at 17:00; Status Future Hold Pantoprazole (Protonix Tab) 40 mg DAILY@06 PO Last administered on 05/30/17 06 :25; Admin Dose 40 MG; Start 05/26/17 at 06:00 Acetaminophen 650 mg 650 mg Q6H PRN PO PAIN AND OR ELEVATED TEMP Last administered on 05/29/17 21:47; Admin Dose 650 MG; Start 05/25/17 at 06:30 Sodium Chloride (NS) 1,000 ml @ 25 mls/hr Q24H IV Last administered on 11:28; Admin Dose 25 MLS/HR; Start 05/25/17 at 07:00 Magnesium Oxide (Mag-Ox 400) 400 mg DAILY PO Last administered on 05/30/17 09: 16; Admin Dose 400 MG; Start 05/26/17 at 09:00 Guaifenesin/ Dextromethorphan (Robitussin Dm Liquid Cup) 5 ml Q4H PRN PO COUGH Last administered on 05/28/17 18:39; Admin Dose 5 ML; Start 05/25/17 at 15:00 Diltiazem HCl (Cardizem) 30 mg QID PO Last administered on 05/30/17 12:42; Admin Dose 30 MG; Start 05/25/17 at 17:00 Metoprolol Tartrate (Lopressor) 5 mg Q4H PRN IV HR>110 Hold SBP<100 Last administered on 05/26/17 15:59; Admin Dose 5 MG; Start 05/25/17 at 15:30 Lactobacillus Acidophilus/ Rhamnosus (Culturelle) 1 cap DAILY PO Last administered on 05/30/17 09:16; Admin Dose 1 CAP; Start 05/27/17 at 09:00 Atenolol 25 mg 25 mg BID PO Last administered on 05/30/17 09:17; Admin Dose 25 MG; Start 05/26/17 at 21:00 Sodium Chloride (NS) 1,000 ml @ 40 mls/hr Q24H IV Last administered on 06:25; Admin Dose 40 MLS/HR; Start 05/28/17 at 11:00 Polyethylene Glycol (Miralax) 8.5 gm DAILY PO Last administered on 05/30/17 09 :16; Admin Dose 8.5 GM; Start 05/29/17 at 09:00 Hydromorphone HCl 0.5 mg 0.5 mg Q6H PRN IV PAIN Last administered on 05/29/17 20:17; Admin Dose 0.5 MG; Start 05/29/17 at 01:00 Fluconazole/ Sodium Chloride 50 ml @ 50 mls/hr Q24H IVPB Last administered on 12:40; Admin Dose 50 MLS/HR; Start 05/30/17 at 12:30 Vancomycin HCl 250 ml @ 125 mls/hr ONCE IVPB Last administered on 05/30/17 14 :00; Admin Dose 125 MLS/HR; Start 05/30/17 at 13:30; Stop 05/30/17 at 22:00 Vancomycin HCl 250 ml @ 125 mls/hr Q24H IVPB ; Start 05/31/17 at 14:00 Meropenem/Sodium Chloride (Merrem 1 Gm/50 ml (Pmx)) 50 ml @ 200 mls/hr Q12H IVPB ; Start 05/31/17 at 03:00 PLACIDO COREA 14, 2017 15:42
[2017-05-30 17:35] LABS: PROTIME 63.5 Sec (12.2-14.2)
[2017-05-30 18:18] LABS: INR 7.24
[2017-05-30] MEDS: HYDROmorphONE 1 MG/ML SYG IV PRN (21:24)
[2017-05-30] MEDS: LEVALBUTEROL (NEB) 0.63 MG/3 ML AMP HHN PRN (23:12)
[2017-05-31] VITALS (12 sets, daily range): BP systolic 94–124; BP diastolic 53–66; PULSE 74–121; RESP 16–20
[2017-05-31] MEDS ORDERED: VANCOMYCIN 750 MG in SOD CHLORIDE 0.9% 150 ML IVPB SCH (01:30)
[2017-05-31] MEDS: MEROPENEM 1 GM/50ML(PMX) 50 ML IVPB SCH ×2 (03:37→18:54)
[2017-05-31] MEDS: SOD CHLORIDE 0.9% 1,000 ML IV SCH ×2 (05:20→11:00)
[2017-05-31] MEDS: PANTOPRAZOLE (EC) 40 MG TAB PO SCH (05:43)
[2017-05-31] MEDS: FUROSEMIDE 20 MG INJ IV SCH ×2 (05:44→18:54)
[2017-05-31 06:55] LABS: ADD SCAN DIFF NO
[2017-05-31 07:02] LABS: ABNORMAL IP MESSAGE 1; HEMATOCRIT 36.3 % (37.0-47.0); HEMOGLOBIN 12.4 g/dl (12.0-16.0); MEAN CORPUSCULAR HEMOGLOBIN 29.9 pg (29.0-33.0); MEAN CORPUSCULAR HGB CONC 34.2 g/dl (32.0-37.0); MEAN CORPUSCULAR VOLUME 87.5 fl (82.0-101.0); MEAN PLATELET VOLUME 12.7 fl (7.4-10.4); PLATELET COUNT 150 10^3/UL (140-415); RED BLOOD COUNT 4.15 10^6/ul (4.20-5.40); RED CELL DISTRIBUTION WIDTH 14.1 % (11.5-14.5); WHITE BLOOD COUNT 32.4 10^3/ul (4.8-10.8)
[2017-05-31 07:12] LABS: PT RATIO 4.3
[2017-05-31 07:31] LABS: PROTIME 54.9 Sec (12.2-14.2)
[2017-05-31 07:41] LABS: CALCIUM 7.7 mg/dl (8.4-10.2); CREATININE 0.8 mg/dl (0.44-1.00); POTASSIUM 3.7 mmol/L (3.5-5.1)
[2017-05-31] MEDS: LEVOTHYROXINE 75 MCG TAB PO SCH (08:28)
[2017-05-31] MEDS: LUBIPROSTONE 24 MCG CAP PO SCH ×2 (08:29→21:00)
[2017-05-31] MEDS: DILTIAZEM 30 MG TAB PO SCH ×2 (08:30→13:00)
[2017-05-31] MEDS: MAGNESIUM OXIDE 400 MG TAB PO SCH (08:30)
[2017-05-31] MEDS: LACTOBACILLUS RHAMNOSUS CAP PO SCH (08:30)
[2017-05-31] MEDS: ATENOLOL 25 MG TAB PO SCH (08:30)
[2017-05-31] MEDS: POLYETHYLENE GLYCOL 17 GM PACKET PO SCH (08:31)
[2017-05-31] MEDS: MULTIVITAMINS 10 ML, THIAMINE 100 MG, FOLIC ACID 1 MG in SOD CHLORIDE 0.9% 1,000 ML IVPB SCH (11:15)
[2017-05-31 11:25] LABS: BURR CELLS MODERATE; LYMPHOCYTES # 0.3 10^3/ul (0.8-2.9); NEUTROPHIL # 30.1 10^3/ul (1.6-7.5); POIKILOCYTOSIS 2+; TARGET CELLS OCCASIONAL
[2017-05-31] MEDS: LEVALBUTEROL (NEB) 0.63 MG/3 ML AMP HHN PRN (12:29)
[2017-05-31] MEDS: FLUCONAZOLE 100 MG/NS (PMX) 50 ML IVPB SCH (13:18)
--- NOTE | 2017-05-31 14:48 | PN ---
Date/Time of Note Date/Time of Note DATE: 05/31/17 TIME: 14:42 Assessment/Plan VTE Prophylaxis VTE Prophylaxis Intervention: ambulation Lines/Catheters IV Catheter Type (from [facility], [place]): Peripheral IV Urinary Cath still in place: No Assessment/Plan Chief Complaint/Hosp Course Pain left flank, patient has perinephric hematoma/bleeding. Problems: Assessment/Plan Monitor her H&H and transfuse her as needed. Subjective 24 Hr Interval Summary Subjective hx not possible: other (Language barrier, patient speaks very little Greenlandic points to her left flank area for pain) Constitutional: no complaints Eyes: no complaints ENT: no complaints Respiratory: no complaints Cardiovascular: no complaints Gastrointestinal: constipation Genitourinary: flank pain (Left side) Musculoskeletal: no complaints Skin: no complaints Neurologic: no complaints Endocrine: no complaints Lymphatic: no complaints Psychological: no complaints Immunologic: no complaints Exam/Review of Systems Vital Signs Vitals Vital Signs Date Time Temp Pulse Resp B/P Pulse Ox O2 Delivery O2 Flow Rate FiO2 05/31/17 13:27 98.7 97 18 94/57 97 05/31/17 12:29 Nasal Cannula 4.0 Intake and Output 05/30/17 05/30/17 05/31/17 15:00 23:00 07:00 Intake Total 1400 ml 610 ml Output Total 750 ml Balance 650 ml 610 ml Exam Constitutional: alert Psych: no complaints Head: normocephalic Eyes: nl conjunctiva ENMT: nl external ears & nose Neck: supple Respiratory: normal air movement Cardiovascular: nl pulses Gastrointestinal: other (Nurse tells me that she did have a bowel movement yesterday), soft Genitourinary - Female: other (Voiding well no dysuria and no hematuria) Extremities: No edema, No tenderness Skin: nl turgor Results Result Diagram: 05/31/17 0611 05/31/17 0608 Results 24 hrs Laboratory Tests Test 05/30/17 16:55 05/31/17 06:08 05/31/17 06:11 Prothrombin Time 63.5 H 54.9 H Prothrombin Time Ratio 5.0 4.3 INR International Normalized Ratio 7.24 *H 6.02 *H Sodium Level 130 L Potassium Level 3.7 Chloride Level 95 L Carbon Dioxide Level 29 Anion Gap 10 # Blood Urea Nitrogen 39 H Creatinine 0.80 Glucose Level 83 Calcium Level 7.7 L White Blood Count 32.4 H Red Blood Count 4.15 L Hemoglobin 12.4 Hematocrit 36.3 L Mean Corpuscular Volume 87.5 Mean Corpuscular Hemoglobin 29.9 Mean Corpuscular Hemoglobin Concent 34.2 Red Cell Distribution Width 14.1 Platelet Count 150 Mean Platelet Volume 12.7 H Neutrophils % 93.0 H Band Neutrophils % 3.0 Lymphocytes % 1.0 L Monocytes % 3.0 Neutrophils # 30.1 H Lymphocytes # 0.3 L Monocytes # 1.0 H Poikilocytosis 2+ Target Cells OCCASIONAL Vitamin D 1,25-Dihydroxy 22.5 L Medications Medications Current Medications Lubiprostone (Amitiza) 24 mcg BID PO Last administered on 05/31/17 08:29; Admin Dose 24 MCG; Start 05/25/17 at 09:00 Nitroglycerin (Nitroglycerin (Sl Tab) 0.4 Mg) 0.4 tab PRN SL ; Start 05/25/17 at 06:00 Warfarin Sodium (Coumadin) 4 mg DAILY@17 PO Last administered on 05/28/17 17: 47; Admin Dose 4 MG; Start 05/25/17 at 17:00; Status Future Hold Pantoprazole (Protonix Tab) 40 mg DAILY@06 PO Last administered on 05/31/17 05 :43; Admin Dose 40 MG; Start 05/26/17 at 06:00 Acetaminophen 650 mg 650 mg Q6H PRN PO PAIN AND OR ELEVATED TEMP Last administered on 05/29/17 21:47; Admin Dose 650 MG; Start 05/25/17 at 06:30 Sodium Chloride (NS) 1,000 ml @ 25 mls/hr Q24H IV Last administered on 11:28; Admin Dose 25 MLS/HR; Start 05/25/17 at 07:00 Magnesium Oxide (Mag-Ox 400) 400 mg DAILY PO Last administered on 05/31/17 08: 30; Admin Dose 400 MG; Start 05/26/17 at 09:00 Guaifenesin/ Dextromethorphan (Robitussin Dm Liquid Cup) 5 ml Q4H PRN PO COUGH Last administered on 05/28/17 18:39; Admin Dose 5 ML; Start 05/25/17 at 15:00 Diltiazem HCl (Cardizem) 30 mg QID PO Last administered on 05/31/17 08:30; Admin Dose 30 MG; Start 05/25/17 at 17:00 Metoprolol Tartrate (Lopressor) 5 mg Q4H PRN IV HR>110 Hold SBP<100 Last administered on 05/26/17 15:59; Admin Dose 5 MG; Start 05/25/17 at 15:30 Lactobacillus Acidophilus/ Rhamnosus (Culturelle) 1 cap DAILY PO Last administered on 05/31/17 08:30; Admin Dose 1 CAP; Start 05/27/17 at 09:00 Atenolol 25 mg 25 mg BID PO Last administered on 05/31/17 08:30; Admin Dose 25 MG; Start 05/26/17 at 21:00 Sodium Chloride (NS) 1,000 ml @ 40 mls/hr Q24H IV Last administered on 06:25; Admin Dose 40 MLS/HR; Start 05/28/17 at 11:00 Polyethylene Glycol (Miralax) 8.5 gm DAILY PO Last administered on 05/31/17 08 :31; Admin Dose 8.5 GM; Start 05/29/17 at 09:00 Hydromorphone HCl 0.5 mg 0.5 mg Q6H PRN IV PAIN Last administered on 05/30/17 21:24; Admin Dose 0.5 MG; Start 05/29/17 at 01:00 Fluconazole/ Sodium Chloride 50 ml @ 50 mls/hr Q24H IVPB Last administered on 13:18; Admin Dose 50 MLS/HR; Start 05/30/17 at 12:30 Vancomycin HCl 250 ml @ 125 mls/hr Q24H IVPB ; Start 05/31/17 at 14:00 Meropenem/Sodium Chloride 50 ml @ 200 mls/hr Q12H IVPB Last administered on 03:37; Admin Dose 200 MLS/HR; Start 05/31/17 at 03:00 Multivitamins/ Thiamine HCl/ Folic Acid/Sodium Chloride (Mvi Adult/ Vitamin B1/ Folic Acid/NS) 1,011.2 ml @ 125 mls/ hr DAILY@09 IVPB Last administered on 11:15; Admin Dose 125 MLS/HR; Start 05/31/17 at 09:00 ANA WILKINSON MD May 31, 2017 14:48
[2017-05-31] MEDS: VANCOMYCIN 1 GM in NS 250 ML IVPB SCH (15:15)
--- NOTE | 2017-05-31 15:20 | PN ---
Date/Time of Note Date/Time of Note DATE: 05/31/17 TIME: 15:17 Assessment/Plan VTE Prophylaxis VTE Prophylaxis Intervention: anti-embolic stocking Lines/Catheters IV Catheter Type (from Nrs): Peripheral IV Urinary Cath still in place: No Assessment/Plan Assessment/Plan 76 yo female on Coumadin admitted for TIA, now with resolved sx, who was found to have partial thrombosis of internal jugular vein. # Thrombosis while on Coumadin - Given that patient has a prosthetic mitral valve, her anticoagulation options are limited to coumadin but this is on hold because of supratherapeutic INR. Especially since this (IJ clot) is a relatively asymptomatic partial thrombosis, I do not think we need to change anticoagulation at this time. - I would recommend to keep the INR between 2.5-3.5. Given INR is >4 and urology concern for perinephric bleed., will give a one time dose of vit K low dose. hgb is st 12-13 stable and will follow # UTI -continue antibiotics #Ischemic Cardiomyopathy -management per cardiology Subjective 24 Hr Interval Summary Constitutional: no complaints Eyes: no complaints Respiratory: no complaints Exam/Review of Systems Vital Signs Vitals Vital Signs Date Time Temp Pulse Resp B/P Pulse Ox O2 Delivery O2 Flow Rate FiO2 05/31/17 13:27 98.7 97 18 94/57 97 05/31/17 12:29 Nasal Cannula 4.0 Intake and Output 05/30/17 05/30/17 05/31/17 15:00 23:00 07:00 Intake Total 1400 ml 610 ml Output Total 750 ml Balance 650 ml 610 ml Exam Constitutional: alert, oriented Psych: nl mood/affect Eyes: nl conjunctiva Neck: supple Respiratory: normal air movement Results Result Diagram: 05/31/17 0611 05/31/17 0608 Results 24 hrs Laboratory Tests Test 05/30/17 16:55 05/31/17 06:08 05/31/17 06:11 Prothrombin Time 63.5 H 54.9 H Prothrombin Time Ratio 5.0 4.3 INR International Normalized Ratio 7.24 *H 6.02 *H Sodium Level 130 L Potassium Level 3.7 Chloride Level 95 L Carbon Dioxide Level 29 Anion Gap 10 # Blood Urea Nitrogen 39 H Creatinine 0.80 Glucose Level 83 Calcium Level 7.7 L White Blood Count 32.4 H Red Blood Count 4.15 L Hemoglobin 12.4 Hematocrit 36.3 L Mean Corpuscular Volume 87.5 Mean Corpuscular Hemoglobin 29.9 Mean Corpuscular Hemoglobin Concent 34.2 Red Cell Distribution Width 14.1 Platelet Count 150 Mean Platelet Volume 12.7 H Neutrophils % 93.0 H Band Neutrophils % 3.0 Lymphocytes % 1.0 L Monocytes % 3.0 Neutrophils # 30.1 H Lymphocytes # 0.3 L Monocytes # 1.0 H Poikilocytosis 2+ Target Cells OCCASIONAL Vitamin D 1,25-Dihydroxy 22.5 L Medications Medications Current Medications Lubiprostone (Amitiza) 24 mcg BID PO Last administered on 05/31/17 08:29; Admin Dose 24 MCG; Start 05/25/17 at 09:00 Nitroglycerin (Nitroglycerin (Sl Tab) 0.4 Mg) 0.4 tab PRN SL ; Start 05/25/17 at 06:00 Warfarin Sodium (Coumadin) 4 mg DAILY@17 PO Last administered on 05/28/17 17: 47; Admin Dose 4 MG; Start 05/25/17 at 17:00; Status Future Hold Pantoprazole (Protonix Tab) 40 mg DAILY@06 PO Last administered on 05/31/17 05 :43; Admin Dose 40 MG; Start 05/26/17 at 06:00 Acetaminophen 650 mg 650 mg Q6H PRN PO PAIN AND OR ELEVATED TEMP Last administered on 05/29/17 21:47; Admin Dose 650 MG; Start 05/25/17 at 06:30 Sodium Chloride (NS) 1,000 ml @ 25 mls/hr Q24H IV Last administered on 11:28; Admin Dose 25 MLS/HR; Start 05/25/17 at 07:00 Magnesium Oxide (Mag-Ox 400) 400 mg DAILY PO Last administered on 05/31/17 08: 30; Admin Dose 400 MG; Start 05/26/17 at 09:00 Guaifenesin/ Dextromethorphan (Robitussin Dm Liquid Cup) 5 ml Q4H PRN PO COUGH Last administered on 05/28/17 18:39; Admin Dose 5 ML; Start 05/25/17 at 15:00 Diltiazem HCl (Cardizem) 30 mg QID PO Last administered on 05/31/17 08:30; Admin Dose 30 MG; Start 05/25/17 at 17:00 Metoprolol Tartrate (Lopressor) 5 mg Q4H PRN IV HR>110 Hold SBP<100 Last administered on 05/26/17 15:59; Admin Dose 5 MG; Start 05/25/17 at 15:30 Lactobacillus Acidophilus/ Rhamnosus (Culturelle) 1 cap DAILY PO Last administered on 05/31/17 08:30; Admin Dose 1 CAP; Start 05/27/17 at 09:00 Atenolol 25 mg 25 mg BID PO Last administered on 05/31/17 08:30; Admin Dose 25 MG; Start 05/26/17 at 21:00 Sodium Chloride (NS) 1,000 ml @ 40 mls/hr Q24H IV Last administered on 06:25; Admin Dose 40 MLS/HR; Start 05/28/17 at 11:00 Polyethylene Glycol (Miralax) 8.5 gm DAILY PO Last administered on 05/31/17 08 :31; Admin Dose 8.5 GM; Start 05/29/17 at 09:00 Hydromorphone HCl 0.5 mg 0.5 mg Q6H PRN IV PAIN Last administered on 05/30/17 21:24; Admin Dose 0.5 MG; Start 05/29/17 at 01:00 Fluconazole/ Sodium Chloride 50 ml @ 50 mls/hr Q24H IVPB Last administered on 13:18; Admin Dose 50 MLS/HR; Start 05/30/17 at 12:30 Vancomycin HCl 250 ml @ 125 mls/hr Q24H IVPB Last administered on 05/31/17 15 :15; Admin Dose 125 MLS/HR; Start 05/31/17 at 14:00 Meropenem/Sodium Chloride 50 ml @ 200 mls/hr Q12H IVPB Last administered on 03:37; Admin Dose 200 MLS/HR; Start 05/31/17 at 03:00 Multivitamins/ Thiamine HCl/ Folic Acid/Sodium Chloride (Mvi Adult/ Vitamin B1/ Folic Acid/NS) 1,011.2 ml @ 125 mls/ hr DAILY@09 IVPB Last administered on 11:15; Admin Dose 125 MLS/HR; Start 05/31/17 at 09:00 LUCHO CHERY MD May 31, 2017 15:20
[2017-05-31] MEDS ORDERED: PHYTONADIONE 10 MG/ML INJ SC ONE (15:30)
--- NOTE | 2017-05-31 15:38 | CONS ---
Date/Time of Note Date/Time of Note DATE: 05/31/17 TIME: 15:32 Assessment/Plan Assessment/Plan Chief Complaint/Hosp Course IMP: 1.tachycardia-? S Tach/SVT/pacermaker mediated/secondary to fevers- now improved on current regimen. [facility] [place] device 2.Hypotension-improved/stable/tolerating medications 3.AF-rate controlled 4.Fevers/leukcytosis-increased significantly 5. TIA 6.UTI 7. coagulopathy-supratherapeutic 8. L sided rib pain-positive TTP/resolved-negative troponin 9. Possible kidney abscess 10. L IJ thrombosis 11.PPM-s/p interogation with proer function 12. Hypontremia Recc: -Tele -Continue diltiazem/BB with slight decrease to CCB to allow patient to better tolerate -Continue abx's and f/u cx data -treat fevers -urology following -Hold coumadin and f/u INR closely -Follow volume status closely Problems: Consultation Date/Type/Reason Admit Date/Time May 25, 2017 at 00:06 Initial Consult Date 05/25/17 Type of Consultation: cardiology Reason for Consultation tachycardia Referring Provider: DUANE NGUYỄN MD Exam/Review of Systems Vital Signs Vitals Vital Signs Date Time Temp Pulse Resp B/P Pulse Ox O2 Delivery O2 Flow Rate FiO2 05/31/17 13:27 98.7 97 18 94/57 97 05/31/17 12:29 Nasal Cannula 4.0 Intake and Output 05/30/17 05/30/17 05/31/17 15:00 23:00 07:00 Intake Total 1400 ml 610 ml Output Total 750 ml Balance 650 ml 610 ml Exam Review of Systems: CONSTITUTIONAL: No fevers, chills. PULMONARY: No sob CARDIOVASCULAR: No chest pain/palpitations GASTROINTESTINAL:constipation GENITOURINARY: No hematuria/dysuria. MUSCULOSKELETAL: No myagias/arthalgias. PSYCHIATRIC: The patient denies depression. NEUROLOGIC: No weakness Constitutional: alert Psych: no complaints Head: normocephalic ENMT: mucosa pink and moist Neck: supple Respiratory: diminished breath sounds Cardiovascular: regular rate and rhythm Gastrointestinal: non-tender, soft Musculoskeletal: muscle tone (normal) Extremities: edema (none) Neurological: other (No focal deficits) Results Result Diagram: 05/31/17 0611 05/31/17 0608 Results 24 hrs Laboratory Tests Test 05/30/17 16:55 05/31/17 06:08 05/31/17 06:11 Prothrombin Time 63.5 H 54.9 H Prothrombin Time Ratio 5.0 4.3 INR International Normalized Ratio 7.24 *H 6.02 *H Sodium Level 130 L Potassium Level 3.7 Chloride Level 95 L Carbon Dioxide Level 29 Anion Gap 10 # Blood Urea Nitrogen 39 H Creatinine 0.80 Glucose Level 83 Calcium Level 7.7 L White Blood Count 32.4 H Red Blood Count 4.15 L Hemoglobin 12.4 Hematocrit 36.3 L Mean Corpuscular Volume 87.5 Mean Corpuscular Hemoglobin 29.9 Mean Corpuscular Hemoglobin Concent 34.2 Red Cell Distribution Width 14.1 Platelet Count 150 Mean Platelet Volume 12.7 H Neutrophils % 93.0 H Band Neutrophils % 3.0 Lymphocytes % 1.0 L Monocytes % 3.0 Neutrophils # 30.1 H Lymphocytes # 0.3 L Monocytes # 1.0 H Poikilocytosis 2+ Target Cells OCCASIONAL Vitamin D 1,25-Dihydroxy 22.5 L Medications Medications Current Medications Lubiprostone (Amitiza) 24 mcg BID PO Last administered on 05/31/17 08:29; Admin Dose 24 MCG; Start 05/25/17 at 09:00 Nitroglycerin (Nitroglycerin (Sl Tab) 0.4 Mg) 0.4 tab PRN SL ; Start 05/25/17 at 06:00 Warfarin Sodium (Coumadin) 4 mg DAILY@17 PO Last administered on 05/28/17 17: 47; Admin Dose 4 MG; Start 05/25/17 at 17:00; Status Future Hold Pantoprazole (Protonix Tab) 40 mg DAILY@06 PO Last administered on 05/31/17 05 :43; Admin Dose 40 MG; Start 05/26/17 at 06:00 Acetaminophen 650 mg 650 mg Q6H PRN PO PAIN AND OR ELEVATED TEMP Last administered on 05/29/17 21:47; Admin Dose 650 MG; Start 05/25/17 at 06:30 Sodium Chloride (NS) 1,000 ml @ 25 mls/hr Q24H IV Last administered on 11:28; Admin Dose 25 MLS/HR; Start 05/25/17 at 07:00 Magnesium Oxide (Mag-Ox 400) 400 mg DAILY PO Last administered on 05/31/17 08: 30; Admin Dose 400 MG; Start 05/26/17 at 09:00 Guaifenesin/ Dextromethorphan (Robitussin Dm Liquid Cup) 5 ml Q4H PRN PO COUGH Last administered on 05/28/17 18:39; Admin Dose 5 ML; Start 05/25/17 at 15:00 Diltiazem HCl (Cardizem) 30 mg QID PO Last administered on 05/31/17 08:30; Admin Dose 30 MG; Start 05/25/17 at 17:00 Metoprolol Tartrate (Lopressor) 5 mg Q4H PRN IV HR>110 Hold SBP<100 Last administered on 05/26/17 15:59; Admin Dose 5 MG; Start 05/25/17 at 15:30 Lactobacillus Acidophilus/ Rhamnosus (Culturelle) 1 cap DAILY PO Last administered on 05/31/17 08:30; Admin Dose 1 CAP; Start 05/27/17 at 09:00 Atenolol 25 mg 25 mg BID PO Last administered on 05/31/17 08:30; Admin Dose 25 MG; Start 05/26/17 at 21:00 Sodium Chloride (NS) 1,000 ml @ 40 mls/hr Q24H IV Last administered on 06:25; Admin Dose 40 MLS/HR; Start 05/28/17 at 11:00 Polyethylene Glycol (Miralax) 8.5 gm DAILY PO Last administered on 05/31/17 08 :31; Admin Dose 8.5 GM; Start 05/29/17 at 09:00 Hydromorphone HCl 0.5 mg 0.5 mg Q6H PRN IV PAIN Last administered on 05/30/17 21:24; Admin Dose 0.5 MG; Start 05/29/17 at 01:00 Fluconazole/ Sodium Chloride 50 ml @ 50 mls/hr Q24H IVPB Last administered on 13:18; Admin Dose 50 MLS/HR; Start 05/30/17 at 12:30 Vancomycin HCl 250 ml @ 125 mls/hr Q24H IVPB Last administered on 05/31/17 15 :15; Admin Dose 125 MLS/HR; Start 05/31/17 at 14:00 Meropenem/Sodium Chloride 50 ml @ 200 mls/hr Q12H IVPB Last administered on 03:37; Admin Dose 200 MLS/HR; Start 05/31/17 at 03:00 Multivitamins/ Thiamine HCl/ Folic Acid/Sodium Chloride (Mvi Adult/ Vitamin B1/ Folic Acid/NS) 1,011.2 ml @ 125 mls/ hr DAILY@09 IVPB Last administered on 11:15; Admin Dose 125 MLS/HR; Start 05/31/17 at 09:00 Phytonadione (Vitamin K) 5 mg ONCE ONCE SC ; Start 05/31/17 at 15:30; Stop at 15:31 PLACIDO COREA May 31, 2017 15:38
--- NOTE | 2017-05-31 16:23 | CONS ---
Date/Time of Note Date/Time of Note DATE: 05/31/17 TIME: 16:11 Assessment/Plan Assessment/Plan Chief Complaint/Hosp Course ID PROGRESS NOTE ABX DAY # Vancomycin IV , fluconazole, meropenem. 24H INTERVAL SUMMARY * Awake, alert, Chinese speaking, VSS, low grade temp 99.3, WBC overall improved still elevated, supplemental O2 via NC, NAD * CT IMPRESSION: 1. Mild atelectasis at the right lung base and moderate atelectasis throughout the left lower lobe. 2. Atherosclerosis. 3. Cardiomegaly. 4. Mitral valve replacement. 5. Left-sided biventricular permanent pacemaker. 6. Extensive coronary artery calcification. 7. Small right pleural effusion and moderate left pleural effusion. 8. Status post cholecystectomy. 9. Status post splenectomy. 10. Abnormal appearance of the pancreas which may indicate chronic pancreatitis with dilated pancreatic duct and multiple small cysts. 11. Large fluid collection surrounding the left kidney predominantly anteriorly measuring 4.0 x 9.3 x 10.5 cm. This may be due to abscess or pseudocyst. 12. Gaseous distension of the stomach. 13. Degenerative changes of the spine and right hip. 14. Old healed fracture of the right inferior pubic ramus. 15. Old compression fractures of L2, L3, L4, and L5. PHYSICAL EXAMINATION: GENERAL: VSS, NAD, no fever HEENT: Unremarkable NECK: Trach midline CHEST: Equal chest rise bilaterally, without dyspnea on observation HEART: Pulse RRR ABDOMEN: Soft, left flank pain EXTREMITIES: Warm SKIN: Warm, dry, mild dependent edema x4 ID ASSESSMENT: 76 yo F admitted with: 1. Sepsis versus systemic inflammatory response syndrome with persistent leukocytosis secondary to #2 2. Left kidney abscess versus pseudocyst * Per note: patient has perinephric hematoma/bleeding. 3. Bacteremia with blood culture on admission grew Bacillus species consistent with contaminant 4. Left lung base atelectasis w/mall right pleural effusion and moderate left pleural effusion. 5. Coronary artery disease with a history of mitral valve mechanical prosthesis and ejection fraction of 40% 6. History of permanent pacemaker 7. Chronic pancreatitis with dilated pancreatic duct and multiple small cysts. 8. Acute TIA 9. Thrombosis IJ while on Coumadin ABX ALLERGIES: KNDA PCN CURRENT ABX: ABX DAY # => Vancomycin IV , fluconazole, meropenem. ID RECOMMENDATIONS: 1. Continue current ABX 2. Per note: patient has perinephric hematoma/bleeding while on Coumadin * Continue to observe for improvement on ABX . Problems: Consultation Date/Type/Reason Admit Date/Time May 25, 2017 at 00:06 Initial Consult Date 05/30/17 Type of Consultation: ID Referring Provider: DUANE NGUYỄN MD Exam/Review of Systems Vital Signs Vitals Vital Signs Date Time Temp Pulse Resp B/P Pulse Ox O2 Delivery O2 Flow Rate FiO2 05/31/17 15:40 99.0 94 20 119/54 95 05/31/17 12:29 Nasal Cannula 4.0 Intake and Output 05/30/17 05/30/17 05/31/17 15:00 23:00 07:00 Intake Total 1400 ml 610 ml Output Total 750 ml Balance 650 ml 610 ml Results Result Diagram: 05/31/17 0611 05/31/17 0608 Results 24 hrs Laboratory Tests Test 05/30/17 16:55 05/31/17 06:08 05/31/17 06:11 Prothrombin Time 63.5 H 54.9 H Prothrombin Time Ratio 5.0 4.3 INR International Normalized Ratio 7.24 *H 6.02 *H Sodium Level 130 L Potassium Level 3.7 Chloride Level 95 L Carbon Dioxide Level 29 Anion Gap 10 # Blood Urea Nitrogen 39 H Creatinine 0.80 Glucose Level 83 Calcium Level 7.7 L White Blood Count 32.4 H Red Blood Count 4.15 L Hemoglobin 12.4 Hematocrit 36.3 L Mean Corpuscular Volume 87.5 Mean Corpuscular Hemoglobin 29.9 Mean Corpuscular Hemoglobin Concent 34.2 Red Cell Distribution Width 14.1 Platelet Count 150 Mean Platelet Volume 12.7 H Neutrophils % 93.0 H Band Neutrophils % 3.0 Lymphocytes % 1.0 L Monocytes % 3.0 Neutrophils # 30.1 H Lymphocytes # 0.3 L Monocytes # 1.0 H Poikilocytosis 2+ Target Cells OCCASIONAL Vitamin D 1,25-Dihydroxy 22.5 L Medications Medications Current Medications Lubiprostone (Amitiza) 24 mcg BID PO Last administered on 05/31/17t 08:29; Admin Dose 24 MCG; Start 05/25/17 at 09:00 Nitroglycerin (Nitroglycerin (Sl Tab) 0.4 Mg) 0.4 tab PRN SL ; Start 05/25/17 at 06:00 Warfarin Sodium (Coumadin) 4 mg DAILY@17 PO Last administered on 05/28/17 17: 47; Admin Dose 4 MG; Start 05/25/17 at 17:00; Status Future Hold Pantoprazole (Protonix Tab) 40 mg DAILY@06 PO Last administered on 05/31/17 05 :43; Admin Dose 40 MG; Start 05/26/17 at 06:00 Acetaminophen 650 mg 650 mg Q6H PRN PO PAIN AND OR ELEVATED TEMP Last administered on 05/29/17 21:47; Admin Dose 650 MG; Start 05/25/17 at 06:30 Sodium Chloride (NS) 1,000 ml @ 25 mls/hr Q24H IV Last administered on 11:28; Admin Dose 25 MLS/HR; Start 05/25/17 at 07:00 Magnesium Oxide (Mag-Ox 400) 400 mg DAILY PO Last administered on 05/31/17 08: 30; Admin Dose 400 MG; Start 05/26/17 at 09:00 Guaifenesin/ Dextromethorphan (Robitussin Dm Liquid Cup) 5 ml Q4H PRN PO COUGH Last administered on 05/28/17 18:39; Admin Dose 5 ML; Start 05/25/17 at 15:00 Metoprolol Tartrate (Lopressor) 5 mg Q4H PRN IV HR>110 Hold SBP<100 Last administered on 05/26/17 15:59; Admin Dose 5 MG; Start 05/25/17 at 15:30 Lactobacillus Acidophilus/ Rhamnosus (Culturelle) 1 cap DAILY PO Last administered on 05/31/17 08:30; Admin Dose 1 CAP; Start 05/27/17 at 09:00 Atenolol 25 mg 25 mg BID PO Last administered on 05/31/17 08:30; Admin Dose 25 MG; Start 05/26/17 at 21:00 Sodium Chloride (NS) 1,000 ml @ 40 mls/hr Q24H IV Last administered on 06:25; Admin Dose 40 MLS/HR; Start 05/28/17 at 11:00 Polyethylene Glycol (Miralax) 8.5 gm DAILY PO Last administered on 05/31/17 08 :31; Admin Dose 8.5 GM; Start 05/29/17 at 09:00 Hydromorphone HCl 0.5 mg 0.5 mg Q6H PRN IV PAIN Last administered on 05/30/17 21:24; Admin Dose 0.5 MG; Start 05/29/17 at 01:00 Fluconazole/ Sodium Chloride 50 ml @ 50 mls/hr Q24H IVPB Last administered on 13:18; Admin Dose 50 MLS/HR; Start 05/30/17 at 12:30 Vancomycin HCl 250 ml @ 125 mls/hr Q24H IVPB Last administered on 05/31/17 15 :15; Admin Dose 125 MLS/HR; Start 05/31/17 at 14:00 Meropenem/Sodium Chloride 50 ml @ 200 mls/hr Q12H IVPB Last administered on 03:37; Admin Dose 200 MLS/HR; Start 05/31/17 at 03:00 Multivitamins/ Thiamine HCl/ Folic Acid/Sodium Chloride (Mvi Adult/ Vitamin B1/ Folic Acid/NS) 1,011.2 ml @ 125 mls/ hr DAILY@09 IVPB Last administered on 11:15; Admin Dose 125 MLS/HR; Start 05/31/17 at 09:00 Diltiazem HCl (Cardizem) 30 mg Q8 PO ; Start 05/31/17 at 22:00 CLAY GRIDER NP May 31, 2017 16:22
--- NOTE | 2017-05-31 16:58 | PN ---
Date/Time of Note Date/Time of Note DATE: 05/31/17 TIME: 16:56 Assessment/Plan VTE Prophylaxis VTE Prophylaxis Intervention: SCD's Lines/Catheters IV Catheter Type (from Nrs): Peripheral IV Urinary Cath still in place: No Assessment/Plan Chief Complaint/Hosp Course 1. SEPSIS 2. AFIB, controlled 3. HTN, controlled 4. ASHD 5. hyponatremia 6. recurrent UTI 7. LOW EF 8. low platelets 9. Anemia 10. urinary incontinence 11. Constipation 12. Vit d deficiency Problems: Assessment/Plan 1. Bisacodyl 5 mg [place] 2. Vit D supplement Subjective 24 Hr Interval Summary Constitutional: improved Gastrointestinal: constipation Musculoskeletal: back pain Exam/Review of Systems Vital Signs Vitals Vital Signs Date Time Temp Pulse Resp B/P Pulse Ox O2 Delivery O2 Flow Rate FiO2 05/31/17 16:21 86 05/31/17 15:40 99.0 20 119/54 95 05/31/17 12:29 Nasal Cannula 4.0 Intake and Output 05/30/17 05/30/17 05/31/17 15:00 23:00 07:00 Intake Total 1400 ml 610 ml Output Total 750 ml Balance 650 ml 610 ml Exam Constitutional: alert, oriented Respiratory: clear to auscultation Cardiovascular: regular rate and rhythm Gastrointestinal: rebound or guarding (left flank) Results Result Diagram: 05/31/17 0611 05/31/17 0608 Results 24 hrs Laboratory Tests Test 05/31/17 06:08 05/31/17 06:11 Sodium Level 130 L Potassium Level 3.7 Chloride Level 95 L Carbon Dioxide Level 29 Anion Gap 10 # Blood Urea Nitrogen 39 H Creatinine 0.80 Glucose Level 83 Calcium Level 7.7 L White Blood Count 32.4 H Red Blood Count 4.15 L Hemoglobin 12.4 Hematocrit 36.3 L Mean Corpuscular Volume 87.5 Mean Corpuscular Hemoglobin 29.9 Mean Corpuscular Hemoglobin Concent 34.2 Red Cell Distribution Width 14.1 Platelet Count 150 Mean Platelet Volume 12.7 H Neutrophils % 93.0 H Band Neutrophils % 3.0 Lymphocytes % 1.0 L Monocytes % 3.0 Neutrophils # 30.1 H Lymphocytes # 0.3 L Monocytes # 1.0 H Poikilocytosis 2+ Target Cells OCCASIONAL Prothrombin Time 54.9 H Prothrombin Time Ratio 4.3 INR International Normalized Ratio 6.02 *H Vitamin D 1,25-Dihydroxy 22.5 L Medications Medications Current Medications Lubiprostone (Amitiza) 24 mcg BID PO Last administered on 05/31/17 08:29; Admin Dose 24 MCG; Start 05/25/17 at 09:00 Nitroglycerin (Nitroglycerin (Sl Tab) 0.4 Mg) 0.4 tab PRN SL ; Start 05/25/17 at 06:00 Warfarin Sodium (Coumadin) 4 mg DAILY@17 PO Last administered on 05/28/17 17: 47; Admin Dose 4 MG; Start 05/25/17 at 17:00; Status Future Hold Pantoprazole (Protonix Tab) 40 mg DAILY@06 PO Last administered on 05/31/17 05 :43; Admin Dose 40 MG; Start 05/26/17 at 06:00 Acetaminophen 650 mg 650 mg Q6H PRN PO PAIN AND OR ELEVATED TEMP Last administered on 05/29/17 21:47; Admin Dose 650 MG; Start 05/25/17 at 06:30 Sodium Chloride (NS) 1,000 ml @ 25 mls/hr Q24H IV Last administered on 11:28; Admin Dose 25 MLS/HR; Start 05/25/17 at 07:00 Magnesium Oxide (Mag-Ox 400) 400 mg DAILY PO Last administered on 05/31/17 08: 30; Admin Dose 400 MG; Start 05/26/17 at 09:00 Guaifenesin/ Dextromethorphan (Robitussin Dm Liquid Cup) 5 ml Q4H PRN PO COUGH Last administered on 05/28/17 18:39; Admin Dose 5 ML; Start 05/25/17 at 15:00 Metoprolol Tartrate (Lopressor) 5 mg Q4H PRN IV HR>110 Hold SBP<100 Last administered on 05/26/17 15:59; Admin Dose 5 MG; Start 05/25/17 at 15:30 Lactobacillus Acidophilus/ Rhamnosus (Culturelle) 1 cap DAILY PO Last administered on 05/31/17 08:30; Admin Dose 1 CAP; Start 05/27/17 at 09:00 Atenolol 25 mg 25 mg BID PO Last administered on 05/31/17 08:30; Admin Dose 25 MG; Start 05/26/17 at 21:00 Sodium Chloride (NS) 1,000 ml @ 40 mls/hr Q24H IV Last administered on 06:25; Admin Dose 40 MLS/HR; Start 05/28/17 at 11:00 Polyethylene Glycol (Miralax) 8.5 gm DAILY PO Last administered on 05/31/17 08 :31; Admin Dose 8.5 GM; Start 05/29/17 at 09:00 Hydromorphone HCl 0.5 mg 0.5 mg Q6H PRN IV PAIN Last administered on 05/30/17 21:24; Admin Dose 0.5 MG; Start 05/29/17 at 01:00 Fluconazole/ Sodium Chloride 50 ml @ 50 mls/hr Q24H IVPB Last administered on 13:18; Admin Dose 50 MLS/HR; Start 05/30/17 at 12:30 Vancomycin HCl 250 ml @ 125 mls/hr Q24H IVPB Last administered on 05/31/17 15 :15; Admin Dose 125 MLS/HR; Start 05/31/17 at 14:00 Meropenem/Sodium Chloride 50 ml @ 200 mls/hr Q12H IVPB Last administered on 03:37; Admin Dose 200 MLS/HR; Start 05/31/17 at 03:00 Multivitamins/ Thiamine HCl/ Folic Acid/Sodium Chloride (Mvi Adult/ Vitamin B1/ Folic Acid/NS) 1,011.2 ml @ 125 mls/ hr DAILY@09 IVPB Last administered on 11:15; Admin Dose 125 MLS/HR; Start 05/31/17 at 09:00 Diltiazem HCl (Cardizem) 30 mg Q8 PO ; Start 05/31/17 at 22:00 Bisacodyl (Dulcolax Supp) 10 mg Q48H PRN [place] CONSTIPATION; Start 05/31/17 at 17: 00 RENAY TRAN May 31, 2017 16:57
--- NOTE | 2017-05-31 16:59 | PN ---
Date/Time of Note Date/Time of Note DATE: 05/31/17 TIME: 16:58 Assessment/Plan VTE Prophylaxis VTE Prophylaxis Intervention: ambulation Lines/Catheters [facility] Peripheral IV Urinary Cath still in place: No Assessment/Plan Chief Complaint/Hosp Course 1. SEPSIS 2. AFIB, controlled 3. HTN, controlled 4. ASHD 5. hyponatremia 6. recurrent UTI 7. LOW EF 8. low platelets 9. Anemia 10. urinary incontinence 11. Constipation 12. Vit d deficiency Problems: Assessment/Plan 1. Pending discharge 2. SNF placement Subjective 24 Hr Interval Summary Constitutional: no complaints Musculoskeletal: no complaints Exam/Review of Systems Vital Signs Vitals Vital Signs Date Time Temp Pulse Resp B/P Pulse Ox O2 Delivery O2 Flow Rate FiO2 05/31/17 16:21 86 05/31/17 15:40 99.0 20 119/54 95 05/31/17 12:29 Nasal Cannula 4.0 Intake and Output 05/30/17 05/30/17 05/31/17 15:00 23:00 07:00 Intake Total 1400 ml 610 ml Output Total 750 ml Balance 650 ml 610 ml Exam Constitutional: alert, oriented Results Result Diagram: 05/31/17 0611 05/31/17 0608 Results 24 hrs Laboratory Tests Test 05/31/17 06:08 05/31/17 06:11 Sodium Level 130 L Potassium Level 3.7 Chloride Level 95 L Carbon Dioxide Level 29 Anion Gap 10 # Blood Urea Nitrogen 39 H Creatinine 0.80 Glucose Level 83 Calcium Level 7.7 L White Blood Count 32.4 H Red Blood Count 4.15 L Hemoglobin 12.4 Hematocrit 36.3 L Mean Corpuscular Volume 87.5 Mean Corpuscular Hemoglobin 29.9 Mean Corpuscular Hemoglobin Concent 34.2 Red Cell Distribution Width 14.1 Platelet Count 150 Mean Platelet Volume 12.7 H Neutrophils % 93.0 H Band Neutrophils % 3.0 Lymphocytes % 1.0 L Monocytes % 3.0 Neutrophils # 30.1 H Lymphocytes # 0.3 L Monocytes # 1.0 H Poikilocytosis 2+ Target Cells OCCASIONAL Prothrombin Time 54.9 H Prothrombin Time Ratio 4.3 INR International Normalized Ratio 6.02 *H Vitamin D 1,25-Dihydroxy 22.5 L Medications Medications Current Medications Lubiprostone (Amitiza) 24 mcg BID PO Last administered on 05/31/17 08:29; Admin Dose 24 MCG; Start 05/25/17 at 09:00 Nitroglycerin (Nitroglycerin (Sl Tab) 0.4 Mg) 0.4 tab PRN SL ; Start 05/25/17 at 06:00 Warfarin Sodium (Coumadin) 4 mg DAILY@17 PO Last administered on 05/28/17 17: 47; Admin Dose 4 MG; Start 05/25/17 at 17:00; Status Future Hold Pantoprazole (Protonix Tab) 40 mg DAILY@06 PO Last administered on 05/31/17 05 :43; Admin Dose 40 MG; Start 05/26/17 at 06:00 Acetaminophen 650 mg 650 mg Q6H PRN PO PAIN AND OR ELEVATED TEMP Last administered on 05/29/17 21:47; Admin Dose 650 MG; Start 05/25/17 at 06:30 Sodium Chloride (NS) 1,000 ml @ 25 mls/hr Q24H IV Last administered on 11:28; Admin Dose 25 MLS/HR; Start 05/25/17 at 07:00 Magnesium Oxide (Mag-Ox 400) 400 mg DAILY PO Last administered on 05/31/17 08: 30; Admin Dose 400 MG; Start 05/26/17 at 09:00 Guaifenesin/ Dextromethorphan (Robitussin Dm Liquid Cup) 5 ml Q4H PRN PO COUGH Last administered on 05/28/17 18:39; Admin Dose 5 ML; Start 05/25/17 at 15:00 Metoprolol Tartrate (Lopressor) 5 mg Q4H PRN IV HR>110 Hold SBP<100 Last administered on 05/26/17 15:59; Admin Dose 5 MG; Start 05/25/17 at 15:30 Lactobacillus Acidophilus/ Rhamnosus (Culturelle) 1 cap DAILY PO Last administered on 05/31/17 08:30; Admin Dose 1 CAP; Start 05/27/17 at 09:00 Atenolol 25 mg 25 mg BID PO Last administered on 05/31/17 08:30; Admin Dose 25 MG; Start 05/26/17 at 21:00 Sodium Chloride (NS) 1,000 ml @ 40 mls/hr Q24H IV Last administered on 06:25; Admin Dose 40 MLS/HR; Start 05/28/17 at 11:00 Polyethylene Glycol (Miralax) 8.5 gm DAILY PO Last administered on 05/31/17 08 :31; Admin Dose 8.5 GM; Start 05/29/17 at 09:00 Hydromorphone HCl 0.5 mg 0.5 mg Q6H PRN IV PAIN Last administered on 05/30/17 21:24; Admin Dose 0.5 MG; Start 05/29/17 at 01:00 Fluconazole/ Sodium Chloride 50 ml @ 50 mls/hr Q24H IVPB Last administered on 13:18; Admin Dose 50 MLS/HR; Start 05/30/17 at 12:30 Vancomycin HCl 250 ml @ 125 mls/hr Q24H IVPB Last administered on 05/31/17 15 :15; Admin Dose 125 MLS/HR; Start 05/31/17 at 14:00 Meropenem/Sodium Chloride 50 ml @ 200 mls/hr Q12H IVPB Last administered on 03:37; Admin Dose 200 MLS/HR; Start 05/31/17 at 03:00 Multivitamins/ Thiamine HCl/ Folic Acid/Sodium Chloride (Mvi Adult/ Vitamin B1/ Folic Acid/NS) 1,011.2 ml @ 125 mls/ hr DAILY@09 IVPB Last administered on 11:15; Admin Dose 125 MLS/HR; Start 05/31/17 at 09:00 Diltiazem HCl (Cardizem) 30 mg Q8 PO ; Start 05/31/17 at 22:00 Bisacodyl (Dulcolax Supp) 10 mg Q48H PRN [place] CONSTIPATION; Start 05/31/17 at 17: 00 RENAY TRAN May 31, 2017 16:59
[2017-05-31] MEDS ORDERED: BISACODYL 10 MG SUPP PR PRN (17:00)
--- NOTE | 2017-05-31 18:32 | RADRPT ---
PROCEDURE: CT Brain without contrast. CLINICAL INDICATION: Neurologic deficit, code stroke. TECHNIQUE: A CT of the brain was performed utilizing axial sections from the skull base through th e vertex without contrast. Multiplanar re-formations were generated. Images were reviewed on a high- resolution PACS workstation. CTDIvol: 45.01 mGy. DLP: 630.20 mGy-cm. One or more of the following dose reduction techniques were used: - Automated exposure control. - Adjustment of the mA and/or kV according to patient size. - Use of iterative reconstruction technique. COMPARISON: 05/25/2017 FINDINGS: There is mild to moderate generalized volume loss. No hydrocephalus is seen. There is no mass effec t. No acute intracranial hemorrhage is identified. There is no extra-axial collection. No CT eviden ce of acute infarction is identified. There is patchy low attenuation in the supratentorial white m atter, a nonspecific finding which most likely represents the sequela of mild chronic microvascular ischemic disease. There are mild atherosclerotic arterial calcifications. There is no significant mucosal disease in the paranasal sinuses. There are small bilateral mastoid effusions. The ossesous structures are unremarkable. The extracranial soft tissues are unremarkable. IMPRESSION: 1. No acute intracranial pathology. 2. Mild to moderate generalized volume loss. 3. Mild chronic microvascular ischemic changes. 4. Atherosclerotic arterial calcifications. Critical Results were called to Dr. Paniagua at 06:27 p.m. on 05/31/2017. RPTAT: HTAR .Chevy Crouch MD, MD Date Time Electronically viewed and signed by .Chevy Crouch MD, on 05/31/2017 18:32 .R/
[2017-05-31] MEDS: ERGOCALCIFEROL 50,000 UNIT CAP PO SCH (18:55)
--- NOTE | 2017-05-31 20:02 | STROKE ---
Date/Time of Note Date/Time of Note DATE: 05/31/17 TIME: 19:31 Patient Information General Patient location: inpatient Arrival Date Age 76 Gender female Weight 55.7 kg POC Glucose Glucose Result Bedside Glucose - 72 Hours Test 05/31/17 17:56 Bedside Glucose 137mg/dL (70-220) Vital Signs Vital Signs Vital Signs Date Time Temp Pulse Resp B/P Pulse Ox O2 Delivery O2 Flow Rate FiO2 05/31/17 18:45 98 05/31/17 15:40 99.0 20 119/54 95 05/31/17 12:29 Nasal Cannula 4.0 Patient History Current Medications Allergies: Coded Allergies: Penicillins (Verified Allergy, Severe, ANAPHALAXIS, 12/22/11) heparin (Verified Allergy, Unknown, 05/25/17) aspirin (Unverified Adverse Reaction, Unknown, ASA= RASH, 05/25/17) Labs Hematology Labs Hematology Test 05/24/17 22:27 05/27/17 07:42 05/28/17 07:18 05/31/17 06:11 Differential Comment MANUAL DIFF Anisocytosis 1+ Ovalocytes FEW Platelet Estimate PLT APPEAR ADEQUATE Clumped Platelets MODERATE Eosinophils % 0.0% (0.0-7.0) Basophils % 0.3% (0.0-2.0) Nucleated Red Blood Cells % 0.0/100WBC (0.0-0.0) Eosinophils # 0.010^3/ul (0.0-0.5) Basophils # 0.210^3/ul (0.0-0.1) Nucleated Red Blood Cells # 0.010^3/ul (0.0-0.0) White Blood Count 32.410^3/ul (4.8-10.8) Red Blood Count 4.1510^6/ul (4.20-5.40) Hemoglobin 12.4g/dl (12.0-16.0) Hematocrit 36.3% (37.0-47.0) Mean Corpuscular Volume 87.5fl (82.0-101.0) Mean Corpuscular Hemoglobin 29.9pg (29.0-33.0) Mean Corpuscular Hemoglobin Concent 34.2g/dl (32.0-37.0) Red Cell Distribution Width 14.1% (11.5-14.5) Platelet Count 16386^3/UL (140-415) Mean Platelet Volume 12.7fl (7.4-10.4) Neutrophils % 93.0% (39.0-77.0) Band Neutrophils % 3.0% (0.0-5.0) Lymphocytes % 1.0% (15.0-51.0) Monocytes % 3.0% (0.0-11.0) Neutrophils # 30.110^3/ul (1.6-7.5) Lymphocytes # 0.310^3/ul (0.8-2.9) Monocytes # 1.010^3/ul (0.3-0.9) Poikilocytosis 2+ Target Cells OCCASIONAL Chemistry Labs Chemistry Test 05/24/17 22:27 05/25/17 08:03 05/25/17 22:27 05/26/17 06:50 Hemoglobin A1c 5.8% (0-5.9) Thyroid Stimulating Hormone (TSH) 2.340MIU/L (0.465-4.680) Lactic Acid Level 1.5mmol/L (0.5-2.2) Triglycerides Level 48mg/dl (0-149) Cholesterol Level 89mg/dl (100-200) LDL Cholesterol, Calculated 48mg/dl HDL Cholesterol 31mg/dl (33-92) Cholesterol/HDL Ratio 2.8RATIO Test 05/27/17 00:30 05/28/17 07:18 05/31/17 06:08 05/31/17 06:11 Troponin I 0.023ng/ml (0.00-0.12) Total Bilirubin 0.3mg/dl (0.2-1.3) Direct Bilirubin 0.00mg/dl (0.00-0.20) Indirect Bilirubin 0.3mg/dl (0-1.1) Aspartate Amino Transf (AST/SGOT) 48IU/L (15-46) Alanine Aminotransferase (ALT/SGPT) 44IU/L (13-69) Alkaline Phosphatase 124IU/L (42-121) Total Protein 6.0g/dl (6.1-8.1) Albumin 2.9g/dl (3.3-4.9) Globulin 3.10g/dl (1.3-3.2) Albumin/Globulin Ratio 0.93 Sodium Level 130mmol/L (135-144) Potassium Level 3.7mmol/L (3.5-5.1) Chloride Level 95mmol/L (97-110) Carbon Dioxide Level 29mmol/L (21-31) Anion Gap 10 (8-16) Blood Urea Nitrogen 39mg/dl (7-20) Creatinine 0.80mg/dl (0.44-1.00) Glucose Level 83mg/dl (70-220) Calcium Level 7.7mg/dl (8.4-10.2) Vitamin D 1,25-Dihydroxy 22.5ng/ml (30-100) Test 05/31/17 17:56 Bedside Glucose 137mg/dL (70-220) Coagulation Labs: Coagulation Test 05/31/17 06:11 Prothrombin Time 54.9Sec (12.2-14.2) Prothrombin Time Ratio 4.3 INR International Normalized Ratio 6.02 History & Physical Patient History Notes Pt Hx Reviewed History of Present Illness 76yo F presents with acute onset change in mental status and generalized weakness. Patient took a nap and after waking up patient was finding words, slurred and generalized weakness. Patient was last normal 5pm. Patient has INR greater than 6. Review of Systems Constitutional: no symptoms reported EENTM: no symptoms reported Respiratory: no symptoms reported Cardiovascular: no symptoms reported Gastrointestinal: no symptoms reported Genitourinary: no symptoms reported, other (admitted with UTI) Musculoskeletal: no symptoms reported Skin: no symptoms reported Psychiatric/Neurological: no symptoms reported All Other Systems: Reviewed and Negative NIH Stroke Scale NIH Stroke Scale 1A - Level of Conciousness: 0 - Alert keenly [id number] LOC Questions: 1 - Anwers one [id number] - LOC Commands: 0 - Performs both tasks2 - Best Gaze: 0 - Normal3 - Visual: 0 - No visual loss4 - Facial Palsy: 0 - No visual loss5A - Motor Arm - Left: 0 - No [id number] - Motor Arm - Right: 0 - No [id number] - Motor Leg - Left: 2 - Some effort to gravity7 - Limb Ataxia: 0 - Absent8 - Sensory: 0 - Normal9 - Best Language: 0 - No aphasia or normalDysarthria: 1 - Mild to [id number] - Extinction and inattentio: 0 - No abnormalityTotal Score : 4 Date/Time Recorded DATE: 05/31/17 TIME: 19:31 Submitted By Phani Martinez t-PA Imaging Review Imaging Reviewed: Yes Date/Time Imaging Reviewed DATE: 05/31/17 TIME: 19:31 Imaging Findings No acute changes Inclusion/Exclusion Criteria INR greater than 6 t-PA Administration Recommendation: No Weight 55.7 kg Recommedation submitted by Phani Martinez Reason t-PA not Recommended above exclusion criteria t-PA Not Recommended Date/Time 05/31/17 19:45 Recommendations Impression Diagnosis ischemic stroke Recommendation 76yo F presents with acute onset altered mental status, speech difficulty, and generalized weakness. Neurological exam is notable for mild disorientation, slurred speech, and left leg weakness. I believe the patient is having an acute ischemic stroke. IV TPA was considered but not recommended due to elevated INR. Patient is unable to undergo MRI due to metal in her heart. Given her hospitalization for urinary tract infection, I do not recommend CTA of the head and neck, as I believe the IV contrast could have adverse effects to the kidneys and the information obtained with thorough examination of the posterior circulation would be unlikely to change patient management. Instead I recommend carotid ultrasound. Transthoracic echocardiogram is not indicated as patient is already taking Coumadin. I recommend PT/OT/Speech therapy. Post t-PA Order recommendation: Document q15 min vitals Diagnostic Labs: Lipid Proile Hgb A1C CMP CBC w/Diff Coags Therapy: Physical Therapy Speech Therapy Occupational Therapy Misc. Recommendations: Bedside Swallow Evaluation Pnumatic Compression Devices Avoid Agarwal Catheter Stroke Education Smoking Education PHANI MARTINEZ May 31, 2017 20:02
--- NOTE | 2017-05-31 20:12 | EN ---
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: May 31, 2017 Indication: altered mentation Findings: Altered mental status in a patient with INR of 6.02 and recently normal in 1 hr Vitals: Reviewed and stable, good oxygenation on NC at 2L Quick Physical Exam: Constitutional: Elderly, weak, frail, ill-looking Head: atraumatic, normocephalic Neck: non-tender, supple Respiratory: clear to auscultation, diminished breath sounds Cardiovascular: Irregularly irregular heart rate, loud murmur, click Gastrointestinal: S/ NT / ND / +BS Neurologic: Patient has no gross focal deficits on my evaluation, she seems to be able to move all extremities, there is no facial asymmetry, she has good mineral surveyor bilaterally, however globally she is weaker, with a power of about 3-1/2 out of 5 in all 4 extremities, and I was told her speech was clear and appropriate prior, now it is quite soft and when she tries to see her name you can barely hear her. LABs: Recent Labs were reviewed and compared with prior and the following interventions were done Code stroke Initiated and completed Spoke with telemetry neurology, telemetry neurology believes patient might have had a small stroke however we INR of 6.02, patient is not a TPA candidate. Patient unable to get MRI because of presence of mitral valve and pacemaker. Hence only recommendation is for carotid ultrasound, and permissive hypertension with systolic of up to 200 for 24 hours. Based on this I will be holding metoprolol as well as Cardizem. We will use as needed IV metoprolol for tachycardia greater than 110. Further interventions will be the per patient 's primary, patient is signed off to Dr. Espinal. Neurology consultation also obtained with Dr. Hampton Critical care time an hour and 20 minutes MARIYA JANG May 31, 2017 20:12
[2017-06-01] VITALS (13 sets, daily range): BP systolic 118–153; BP diastolic 58–78; PULSE 88–121; RESP 16–18
[2017-06-01] MEDS: MEROPENEM 1 GM/50ML(PMX) 50 ML IVPB SCH ×2 (02:48→17:09)
[2017-06-01] MEDS: SOD CHLORIDE 0.9% 1,000 ML IV SCH ×2 (03:18)
[2017-06-01] MEDS: PANTOPRAZOLE (EC) 40 MG TAB PO SCH (05:41)
[2017-06-01] MEDS: FUROSEMIDE 20 MG INJ IV SCH ×2 (05:41→18:00)
[2017-06-01 07:24] LABS: ADD SCAN DIFF NO
[2017-06-01 07:30] LABS: ABNORMAL IP MESSAGE 1; HEMATOCRIT 35.7 % (37.0-47.0); MEAN CORPUSCULAR HEMOGLOBIN 29.6 pg (29.0-33.0); MEAN CORPUSCULAR HGB CONC 33.6 g/dl (32.0-37.0); MEAN CORPUSCULAR VOLUME 87.9 fl (82.0-101.0); MEAN PLATELET VOLUME 12.5 fl (7.4-10.4); PLATELET COUNT 139 10^3/UL (140-415); RED BLOOD COUNT 4.06 10^6/ul (4.20-5.40); RED CELL DISTRIBUTION WIDTH 14.6 % (11.5-14.5); WHITE BLOOD COUNT 25.2 10^3/ul (4.8-10.8)
[2017-06-01 07:37] LABS: INR 1.44; PROTIME 17.6 Sec (12.2-14.2); PT RATIO 1.4
[2017-06-01 07:43] LABS: CALCIUM 7.3 mg/dl (8.4-10.2); CREATININE 0.73 mg/dl (0.44-1.00); POTASSIUM 3.4 mmol/L (3.5-5.1)
--- NOTE | 2017-06-01 08:36 | HP ---
DATE OF ADMISSION: 05/25/2017 HISTORY OF PRESENT ILLNESS: The patient is a 76-year-old female, initially was taken to [facility] with a history of AFib, pacemaker placement, history of cholecystectomy, history of cataract surgery, history of hypothyroidism, TIA, history of AFib. The patient has a history of ITP, history of splenectomy. The patient presented there for slurred speech. The patient was transferred because of a power outage and CT scan was down. The CT scan done at [facility] is negative. The patient is also noted to have urosepsis and is being referred for management. PAST MEDICAL HISTORY: 1. Positive for AFib. 2. History of mitral valve replacement. 3. History of pacemaker placement. 4. History of hypothyroidism. 5. History of cataract surgery. 6. History of TIA. 7. No history of diabetes. ALLERGIES: ASPIRIN. HEPARIN. PENICILLIN. LOVENOX BECAUSE OF THROMBOCYTOPENIA. MEDICATIONS: 1. 2. Magnesium. 3. Cardizem. 4. Coumadin. 5. Levothyroxine. 6. The patient is not taking amlodipine, the patient is taking metoprolol per the family. REVIEW OF SYSTEMS: HEENT: Unremarkable. RESPIRATORY: Unremarkable. CVS: Palpitations. ABDOMEN: Unremarkable. EXTREMITIES: Negative. : Negative for dysuria. No hematuria. PHYSICAL EXAMINATION: GENERAL APPEARANCE: The patient is an awake, thin female, not in any acute respiratory distress. VITAL SIGNS: Pulse 107, blood pressure 116/65. HEENT: Head is atraumatic, normocephalic. Pupils are equal and reactive. No pallor. No icterus. NECK: Supple. There is no JVD. LUNGS: Clear. CARDIAC: CVS S1, S2 normal, irregular. ABDOMEN: Soft. Nontender. Bowel sounds. No palpable mass. No hepatosplenomegaly. No guarding, rebound tenderness. EXTREMITIES: No cyanosis, clubbing or edema. NEUROLOGIC: The patient is awake, alert, with no focal deficits. DATA: WBC 36.8, hematocrit 28.3, platelet count of 264. Sodium 131, potassium 4.3. Urine is positive for leukocyte esterase. Chest x-ray shows discoid atelectasis, lung base, mild sclerotic changes. IMPRESSION: 1. Urosepsis. 2. Atrial fibrillation, chronic. 3. History of pacemaker placement. 4. History of cholecystectomy. 5. History of splenectomy. 6. History of idiopathic thrombocytopenia purpura. 7. Status post steroid use recently. OTHER DIAGNOSIS: 1. Doubt transient ischemic attack, cerebrovascular accident. 2. The patient also has hyponatremia. 3. Dehydration. 4. Prednisone-induced leukocytosis. PLAN: 1. Continue antibiotic. 2. IV fluids. 3. Cardiology consultation. 4. The patient is currently on Coumadin. Dictated By: Librado Espinal MD /bj/ /Document#: [id number]
--- NOTE | 2017-06-01 08:42 | CONS ---
DATE OF ADMISSION: 05/25/2017 DATE OF CONSULTATION: 05/25/2017 REASON FOR CONSULTATION: Tachyarrhythmia, hypotension. HISTORY OF PRESENT ILLNESS: Ms. Rubio is a 76-year-old female with a history of atrial fibrillation on Coumadin, beta ileana, Multaq, hypothyroidism, dyslipidemia, who initially presented with an altered mental state and difficulty with speech and acute symptoms concerning for acute CVA. Patient was initially taken to an outside hospital but due to was transferred here [facility]. Upon arrival, temperature 102, blood pressure 134/80, pulse 126, respiratory rate 20, . Patient's labs were notable for a white blood cell count 36.8, hemoglobin 13.2, platelet count of 264. Sodium 132, potassium 4.1, creatinine 0.6, BUN 20. Troponin negative. INR of 2.53. Tox screen negative. UA positive. Patient underwent a chest x-ray showing discoid atelectasis, left lung base. A head CT revealing no acute bleed, no acute territory infarct. Patient's electrocardiogram revealed sinus tach at 129 with a right bundle branch block and second-degree repolarization abnormalities. Patient was subsequently admitted to the floor and since admit to the floor has had resolution of the symptoms of difficulty with speech and improvement in altered mental state, as well as blurred vision. PAST MEDICAL HISTORY: As above in HPI. MEDICATION: Currently in the hospital: Mag-Ox, Synthroid 75 mcg daily, Protonix, Solu-Medrol 20 mg q.12, Coumadin 4 mg daily, IV fluid hydration 500 cc x1, diltiazem 60 mg 4 times a day, Amitiza 24 mcg b.i.d., and levofloxacin. ALLERGIES: ASPIRIN, HEPARIN, PENICILLIN. SOCIAL HISTORY: No tobacco, EtOH or illicit drug use. FAMILY HISTORY: No history of sudden cardiac or early CAD. REVIEW OF SYSTEMS: As above in HPI. CONSTITUTIONAL: No fevers, chills. RESPIRATORY: Shortness of breath. CARDIOVASCULAR: Tachycardia. GASTROINTESTINAL: No vomiting. GENITOURINARY: No hematuria. MUSCULOSKELETAL: Degenerative joint disease. PSYCHIATRIC: No documented psych history. NEUROLOGIC: Possible TIA. PHYSICAL EXAMINATION: VITAL SIGNS: T-current 98.2, T-Max 101.8, blood pressure initially 85/48, respiratory rate 18, pulse 113, sat 95 percent. GENERAL APPEARANCE: Patient is alert, awake, mainly non- communicative. NECK: JVP of 8 cm of water. CHEST: Tachycardia. Regular rhythm. Normal S1, S2. 1/6 systolic murmur. ABDOMEN: Positive bowel sounds. Soft. EXTREMITIES: No pitting edema. 1+ pulses bilaterally posterior tibial. LABORATORY: As above in [facility] with most recent from today: Sodium 131, potassium of 4.3, creatinine 0.67, BUN 17. Troponin negative x1. LDL 51, HDL 40. White blood cell count 40.5, hemoglobin 12.6, platelet count 226. UA positive. IMAGING STUDIES: As above in [facility]. No further imaging studies reviewed at this time. ELECTROCARDIOGRAM: As above in [facility]. No further electrocardiograms reviewed at this time. IMPRESSION: 1. Tachyarrhythmia with most currently paced rhythm being consistent with sinus tachycardia. 2. Proximal atrial fibrillation, on Coumadin. 3. Hypotension, status post IV fluid bolus. 4. Altered mental state, blurred vision, difficulty with speech, possible transient ischemic attack. 5. Hypothyroidism. 6. Coronary artery disease, status post open-heart surgery. RECOMMENDATIONS: 1. At this time, would maintain patient on telemetry monitoring. 2. Flow rhythm and rate control closely. 3. Would continue patient's diltiazem at this time but will decrease dose to allow patient better tolerate. 4. It appears that patient has had Multaq held at this time and we will consider re-initiation. 5. Check a 2D echo to further assess patient's ejection fraction, wall motion and major abnormalities. 6. Continue patient's Coumadin but we will hold dose given supratherapeutic INR at this time. 7. Follow the patient's blood pressure closely and continue antibiotic therapy and follow up all culture data. 8. Follow for any recurrent neurologic symptoms. 9. Check a baseline TSH to ensure subclinical hypothyroidism is not changing any bouts of tachyarrhythmia. Thank you for allowing to partake in the care of this patient. I will continue to follow him closely with you. Further recommendations will be made as patient progresses through his inpatient hospital course. Dictated By: Sue Beth /bj/tori /Document#: [id number] CC: Librado Espinal MD;*[facility]*
[2017-06-01] MEDS: LUBIPROSTONE 24 MCG CAP PO SCH ×2 (09:00→20:44)
[2017-06-01] MEDS: POLYETHYLENE GLYCOL 17 GM PACKET PO SCH (09:00)
[2017-06-01] MEDS: LEVOTHYROXINE 75 MCG TAB PO SCH (09:00)
[2017-06-01] MEDS: MAGNESIUM OXIDE 400 MG TAB PO SCH (09:00)
[2017-06-01] MEDS: LACTOBACILLUS RHAMNOSUS CAP PO SCH (09:00)
[2017-06-01] MEDS: MULTIVITAMINS 10 ML, THIAMINE 100 MG, FOLIC ACID 1 MG in SOD CHLORIDE 0.9% 1,000 ML IVPB SCH (09:01)
--- NOTE | 2017-06-01 09:12 | RADRPT ---
PROCEDURE: US Carotids. CLINICAL INDICATION: Dizziness, altered mental status. TECHNIQUE: Multiple sonographic of the carotid bifurcation region and vertebral arteries were obta ined utilizing husain scale, duplex and color-flow imaging. The images were reviewed on a PACS worksta tion. COMPARISON: No prior studies are available for comparison. FINDINGS: Evaluation of the right carotid bifurcation region reveals mild atherosclerotic disease. Evaluation of the left carotid bifurcation region reveals mild atherosclerotic disease. There is antegrade flow within the vertebral arteries bilaterally. RIGHT CAROTID MEASUREMENTS: Common Carotid Vutpus35 (cm/sec) Internal Carotid Artery - proximal 42 (cm/sec) Internal Carotid Artery - mid40 (cm/sec) Internal Carotid Artery - (cm/sec) External Corotid Artery 97 (cm/sec) Vertebral Artery 68 (cm/sec) Internal Carotid/Common Carotid 1.0 LEFT CAROTID MEASUREMENTS: Common Carotid Artery 66 (cm/sec) Internal Carotid Artery - proximal to (cm/sec) Internal Carotid Artery - mid 23 (cm/sec) Internal Carotid Artery - distal 23 (cm/sec) External Corotid Artery 102 (cm/sec) Vertebral Artery 43 (cm/sec) Internal Carotid/Common Carotid 0.9 IMPRESSION: No evidence for hemodynamically significant carotid artery stenosis. Antegrade flow in the vertebral arteries bilaterally. Validated velocity measurements with angiographic measurements, velocity criteria are extrapolated f rom diameter data as defined by the Society of Radiologists in Ultrasound Consensus Conference Radi ology 2003; 229; 340 - 346. This study does indirectly reference the measurement of the distal inte rnal carotid artery diameter as the denominator for stenosis measurement. RPTAT: AA .Howard Hinojosa MD, MD Date Time Electronically viewed and signed by .Howard Hinojosa MD, MD on 06/01/2017 09:12 .P/
[2017-06-01 09:40] LABS: MONOCYTE # 0.5 10^3/ul (0.3-0.9); NEUTROPHIL # 22.7 10^3/ul (1.6-7.5)
[2017-06-01 09:43] LABS: SICKLE CELL OCCASIONAL
[2017-06-01 09:44] LABS: OVALOCYTES FEW; TARGET CELLS FEW
[2017-06-01 09:48] LABS: PLATELET ESTIMATE PLT APPEAR DECREASED
[2017-06-01] MEDS: FLUCONAZOLE 100 MG/NS (PMX) 50 ML IVPB SCH (13:13)
--- NOTE | 2017-06-01 13:49 | CONS ---
Date/Time of Note Date/Time of Note DATE: 06/01/17 TIME: 13:38 Assessment/Plan Assessment/Plan Chief Complaint/Hosp Course IMP: 1.tachycardia-? S Tach/PAF-overall improved when recieves BB/CCB regimen [place] device 2.Hypotension-improved/stable/tolerating medications 3.AF-some RVR as dilt/atenolol held 4.Fevers/leukcytosis-increased significantly 5. TIA 6.UTI 7. coagulopathy-s/p Vitamin k and now subtherapeutic 8. L sided rib pain-positive TTP/resolved-negative troponin 9. 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 Hypontremia 14. 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 permissive htn -Continue abx's and f/u cx data -treat fevers -urology following -Patient with subtherapeutic INR now and possible cerebral event/IJ thrombus will cover with arixtra for short period -Follow volume status closely Problems: Consultation Date/Type/Reason Admit Date/Time May 25, 2017 at 00:06 Initial Consult Date 05/25/17 Type of Consultation: Cardiology Reason for Consultation AF Referring Provider: DUANE NGUYỄN MD Exam/Review of Systems Vital Signs Vitals Vital Signs Date Time Temp Pulse Resp B/P Pulse Ox O2 Delivery O2 Flow Rate FiO2 06/01/17 12:30 98.0 98 18 121/67 98 06/01/17 08:10 Nasal Cannula 3.0 Intake and Output 05/31/17 05/31/17 06/01/17 15:00 23:00 07:00 Intake Total 840 ml 1231.2 ml Balance 840 ml 1231.2 ml Exam Review of Systems: CONSTITUTIONAL: No fevers, chills. PULMONARY: No sob CARDIOVASCULAR: No chest pain/palpitations GASTROINTESTINAL: No nausea/vomiting. GENITOURINARY: No hematuria/dysuria. MUSCULOSKELETAL: No myagias/arthalgias. PSYCHIATRIC: The patient denies depression. NEUROLOGIC: altered MS Constitutional: alert Psych: no complaints Head: normocephalic ENMT: mucosa pink and moist Neck: jvd (8-9 cm water), supple Respiratory: diminished breath sounds (at bases/B) Cardiovascular: irregular rhythm Gastrointestinal: non-tender, soft Musculoskeletal: muscle tone (normal) Extremities: edema (none) Neurological: confused Results Result Diagram: 06/01/17 0604 06/01/17 0604 Results 24 hrs Laboratory Tests Test 05/31/17 17:56 06/01/17 06:04 06/01/17 06:06 Bedside Glucose 137 White Blood Count 25.2 #H Red Blood Count 4.06 L Hemoglobin 12.0 Hematocrit 35.7 L Mean Corpuscular Volume 87.9 Mean Corpuscular Hemoglobin 29.6 Mean Corpuscular Hemoglobin Concent 33.6 Red Cell Distribution Width 14.6 H Platelet Count 139 L Mean Platelet Volume 12.5 H Neutrophils % 90.0 H Band Neutrophils % 7.0 H Monocytes % 2.0 Eosinophils % Metamyelocytes % 1.0 H Neutrophils # 22.7 H Monocytes # 0.5 Eosinophils # Metamyelocytes # 0.3 Platelet Estimate PLT APPEAR DECREASED Sickle Cells OCCASIONAL Target Cells FEW Ovalocytes FEW Sodium Level 133 L Potassium Level 3.4 L Chloride Level 96 L Carbon Dioxide Level 30 Anion Gap 10 Blood Urea Nitrogen 27 #H Creatinine 0.73 Glucose Level 69 #L Calcium Level 7.3 L Prothrombin Time 17.6 #H Prothrombin Time Ratio 1.4 INR International Normalized Ratio 1.44 Medications Medications Current Medications Lubiprostone (Amitiza) 24 mcg BID PO Last administered on 06/01/17 09:00; Admin Dose 24 MCG; Start 05/25/17 at 09:00 Nitroglycerin (Nitroglycerin (Sl Tab) 0.4 Mg) 0.4 tab PRN SL ; Start 05/25/17 at 06:00 Warfarin Sodium (Coumadin) 4 mg DAILY@17 PO Last administered on 05/28/17 17: 47; Admin Dose 4 MG; Start 05/25/17 at 17:00; Status Future hold Pantoprazole (Protonix Tab) 40 mg DAILY@06 PO Last administered on 06/01/17 05 :41; Admin Dose 40 MG; Start 05/26/17 at 06:00 Acetaminophen 650 mg 650 mg Q6H PRN PO PAIN AND OR ELEVATED TEMP Last administered on 05/29/17 21:47; Admin Dose 650 MG; Start 05/25/17 at 06:30 Sodium Chloride (NS) 1,000 ml @ 25 mls/hr Q24H IV Last administered on 11:28; Admin Dose 25 MLS/HR; Start 05/25/17 at 07:00 Magnesium Oxide (Mag-Ox 400) 400 mg DAILY PO Last administered on 06/01/17 09: 00; Admin Dose 400 MG; Start 05/26/17 at 09:00 Guaifenesin/ Dextromethorphan (Robitussin Dm Liquid Cup) 5 ml Q4H PRN PO COUGH Last administered on 05/28/17 18:39; Admin Dose 5 ML; Start 05/25/17 at 15:00 Metoprolol Tartrate (Lopressor) 5 mg Q4H PRN IV HR>110 SBP>180mmhg Last administered on 05/26/17 15:59; Admin Dose 5 MG; Start 05/25/17 at 15:30 Lactobacillus Acidophilus/ Rhamnosus (Culturelle) 1 cap DAILY PO Last administered on 06/01/17 09:00; Admin Dose 1 CAP; Start 05/27/17 at 09:00 Atenolol 25 mg 25 mg BID PO Last administered on 05/31/17 08:30; Admin Dose 25 MG; Start 05/26/17 at 21:00; Status Future Hold Sodium Chloride (NS) 1,000 ml @ 40 mls/hr Q24H IV Last administered on 03:18; Admin Dose 40 MLS/HR; Start 05/28/17 at 11:00 Polyethylene Glycol (Miralax) 8.5 gm DAILY PO Last administered on 06/01/17 09 :00; Admin Dose 8.5 GM; Start 05/29/17 at 09:00 Hydromorphone HCl 0.5 mg 0.5 mg Q6H PRN IV PAIN Last administered on 05/30/17 21:24; Admin Dose 0.5 MG; Start 05/29/17 at 01:00 Fluconazole/ Sodium Chloride 50 ml @ 50 mls/hr Q24H IVPB Last administered on 13:13; Admin Dose 50 MLS/HR; Start 05/30/17 at 12:30 Vancomycin HCl 250 ml @ 125 mls/hr Q24H IVPB Last administered on 05/31/17 15 :15; Admin Dose 125 MLS/HR; Start 05/31/17 at 14:00 Meropenem/Sodium Chloride 50 ml @ 200 mls/hr Q12H IVPB Last administered on 02:48; Admin Dose 200 MLS/HR; Start 05/31/17 at 03:00 Multivitamins/ Thiamine HCl/ Folic Acid/Sodium Chloride (Mvi Adult/ Vitamin B1/ Folic Acid/NS) 1,011.2 ml @ 125 mls/ hr DAILY@09 IVPB Last administered on 09:01; Admin Dose 125 MLS/HR; Start 05/31/17 at 09:00 Diltiazem HCl (Cardizem) 30 mg Q8 PO ; Start 05/31/17 at 22:00; Status Future Hold Bisacodyl (Dulcolax Supp) 10 mg Q48H PRN MA CONSTIPATION Last administered on 21:23; Admin Dose 10 MG; Start 05/31/17 at 17:00 Ergocalciferol (Drisdol) 50,000 unit Q7D PO ; Start 05/31/17 at 17:00 Miscellaneous Information (*Rx Drug Level Order Reminder*) VANCOMYCIN TROUGH AT 1300 ONCE ONCE XX ; Start 06/02/17 at 13:00; Stop 06/02/17 at 13:01 PLACIDO COREA Jun 01, 2017 13:48
--- NOTE | 2017-06-01 14:33 | CONS ---
Date/Time of Note Date/Time of Note DATE: 06/01/17 TIME: 14:27 Assessment/Plan Assessment/Plan Chief Complaint/Hosp Course Assessment/Plan Chief Complaint/Hosp Course ID PROGRESS NOTE ABX DAY # Vancomycin IV , fluconazole, meropenem. 24H INTERVAL SUMMARY * Awake. Alert. Oriented x 4. Denies any Neurological Changes. Gabonese speaking. No Acute Distress. * CT IMPRESSION: 1. Mild atelectasis at the right lung base and moderate atelectasis throughout the left lower lobe. 2. Atherosclerosis. 3. Cardiomegaly. 4. Mitral valve replacement. 5. Left-sided biventricular permanent pacemaker. 6. Extensive coronary artery calcification. 7. Small right pleural effusion and moderate left pleural effusion. 8. Status post cholecystectomy. 9. Status post splenectomy. 10. Abnormal appearance of the pancreas which may indicate chronic pancreatitis with dilated pancreatic duct and multiple small cysts. 11. Large fluid collection surrounding the left kidney predominantly anteriorly measuring 4.0 x 9.3 x 10.5 cm. This may be due to abscess or pseudocyst. 12. Gaseous distension of the stomach. 13. Degenerative changes of the spine and right hip. 14. Old healed fracture of the right inferior pubic ramus. 15. Old compression fractures of L2, L3, L4, and L5. PHYSICAL EXAMINATION: GENERAL: VSS, NAD, no fever HEENT: Unremarkable NECK: Trach midline CHEST: Equal chest rise bilaterally, without dyspnea on observation HEART: Pulse RRR ABDOMEN: Soft, left flank pain EXTREMITIES: Warm SKIN: Warm, dry, mild dependent edema x4 ID ASSESSMENT: 76 yo F admitted with: 1. Sepsis versus systemic inflammatory response syndrome with persistent leukocytosis secondary to #2 2. Left kidney abscess versus pseudocyst * Per note: patient has perinephric hematoma/bleeding. 3. Bacteremia with blood culture on admission grew Bacillus species consistent with contaminant 4. Left lung base atelectasis w/mall right pleural effusion and moderate left pleural effusion. 5. Coronary artery disease with a history of mitral valve mechanical prosthesis and ejection fraction of 40% 6. History of permanent pacemaker 7. Chronic pancreatitis with dilated pancreatic duct and multiple small cysts. 8. Acute TIA 9. Thrombosis IJ while on Coumadin ABX ALLERGIES: KNDA PCN CURRENT ABX: ABX DAY # => Vancomycin IV , fluconazole, meropenem. ID RECOMMENDATIONS: 1. Continue current ABX. 2. Per note: patient has perinephric hematoma/bleeding while on Coumadin. 3. Continue to observe for improvement on ABX. 4. Monitor Neurological Status. Monitor Mental Status. Problems: Consultation Date/Type/Reason Admit Date/Time May 25, 2017 at 00:06 Initial Consult Date 05/30/17 Type of Consultation: id Referring Provider: DUANE NGUYỄN MD Exam/Review of Systems Vital Signs Vitals Vital Signs Date Time Temp Pulse Resp B/P Pulse Ox O2 Delivery O2 Flow Rate FiO2 06/01/17 12:30 98.0 98 18 121/67 98 06/01/17 08:10 Nasal Cannula 3.0 Intake and Output 05/31/17 05/31/17 06/01/17 15:00 23:00 07:00 Intake Total 840 ml 1231.2 ml Balance 840 ml 1231.2 ml Results Result Diagram: 06/01/17 0604 06/01/17 0604 Results 24 hrs Laboratory Tests Test 05/31/17 17:56 06/01/17 06:04 06/01/17 06:06 Bedside Glucose 137 White Blood Count 25.2 #H Red Blood Count 4.06 L Hemoglobin 12.0 Hematocrit 35.7 L Mean Corpuscular Volume 87.9 Mean Corpuscular Hemoglobin 29.6 Mean Corpuscular Hemoglobin Concent 33.6 Red Cell Distribution Width 14.6 H Platelet Count 139 L Mean Platelet Volume 12.5 H Neutrophils % 90.0 H Band Neutrophils % 7.0 H Monocytes % 2.0 Eosinophils % Metamyelocytes % 1.0 H Neutrophils # 22.7 H Monocytes # 0.5 Eosinophils # Metamyelocytes # 0.3 Platelet Estimate PLT APPEAR DECREASED Sickle Cells OCCASIONAL Target Cells FEW Ovalocytes FEW Sodium Level 133 L Potassium Level 3.4 L Chloride Level 96 L Carbon Dioxide Level 30 Anion Gap 10 Blood Urea Nitrogen 27 #H Creatinine 0.73 Glucose Level 69 #L Calcium Level 7.3 L Prothrombin Time 17.6 #H Prothrombin Time Ratio 1.4 INR International Normalized Ratio 1.44 Medications Medications Current Medications Lubiprostone (Amitiza) 24 mcg BID PO Last administered on 06/01/17t 09:00; Admin Dose 24 MCG; Start 05/25/17 at 09:00 Nitroglycerin (Nitroglycerin (Sl Tab) 0.4 Mg) 0.4 tab PRN SL ; Start 05/25/17 at 06:00 Pantoprazole (Protonix Tab) 40 mg DAILY@06 PO Last administered on 06/01/17 05 :41; Admin Dose 40 MG; Start 05/26/17 at 06:00 Acetaminophen 650 mg 650 mg Q6H PRN PO PAIN AND OR ELEVATED TEMP Last administered on 05/29/17 21:47; Admin Dose 650 MG; Start 05/25/17 at 06:30 Sodium Chloride (NS) 1,000 ml @ 25 mls/hr Q24H IV Last administered on 11:28; Admin Dose 25 MLS/HR; Start 05/25/17 at 07:00 Magnesium Oxide (Mag-Ox 400) 400 mg DAILY PO Last administered on 06/01/17 09: 00; Admin Dose 400 MG; Start 05/26/17 at 09:00 Guaifenesin/ Dextromethorphan (Robitussin Dm Liquid Cup) 5 ml Q4H PRN PO COUGH Last administered on 05/28/17 18:39; Admin Dose 5 ML; Start 05/25/17 at 15:00 Metoprolol Tartrate (Lopressor) 5 mg Q4H PRN IV HR>110 SBP>180mmhg Last administered on 05/26/17 15:59; Admin Dose 5 MG; Start 05/25/17 at 15:30 Lactobacillus Acidophilus/ Rhamnosus (Culturelle) 1 cap DAILY PO Last administered on 06/01/17 09:00; Admin Dose 1 CAP; Start 05/27/17 at 09:00 Atenolol 25 mg 25 mg BID PO Last administered on 05/31/17 08:30; Admin Dose 25 MG; Start 05/26/17 at 21:00; Status Future Hold Sodium Chloride (NS) 1,000 ml @ 40 mls/hr Q24H IV Last administered on 03:18; Admin Dose 40 MLS/HR; Start 05/28/17 at 11:00 Polyethylene Glycol (Miralax) 8.5 gm DAILY PO Last administered on 06/01/17 09 :00; Admin Dose 8.5 GM; Start 05/29/17 at 09:00 Hydromorphone HCl 0.5 mg 0.5 mg Q6H PRN IV PAIN Last administered on 05/30/17 21:24; Admin Dose 0.5 MG; Start 05/29/17 at 01:00 Fluconazole/ Sodium Chloride 50 ml @ 50 mls/hr Q24H IVPB Last administered on 13:13; Admin Dose 50 MLS/HR; Start 05/30/17 at 12:30 Vancomycin HCl 250 ml @ 125 mls/hr Q24H IVPB Last administered on 05/31/17 15 :15; Admin Dose 125 MLS/HR; Start 05/31/17 at 14:00 Meropenem/Sodium Chloride 50 ml @ 200 mls/hr Q12H IVPB Last administered on 02:48; Admin Dose 200 MLS/HR; Start 05/31/17 at 03:00 Multivitamins/ Thiamine HCl/ Folic Acid/Sodium Chloride (Mvi Adult/ Vitamin B1/ Folic Acid/NS) 1,011.2 ml @ 125 mls/ hr DAILY@09 IVPB Last administered on 09:01; Admin Dose 125 MLS/HR; Start 05/31/17 at 09:00 Diltiazem HCl (Cardizem) 30 mg Q8 PO ; Start 05/31/17 at 22:00; Status Future Hold Bisacodyl (Dulcolax Supp) 10 mg Q48H PRN [place] CONSTIPATION Last administered on 21:23; Admin Dose 10 MG; Start 05/31/17 at 17:00 Ergocalciferol (Drisdol) 50,000 unit Q7D PO ; Start 05/31/17 at 17:00 Miscellaneous Information (*Rx Drug Level Order Reminder*) VANCOMYCIN TROUGH AT 1300 ONCE ONCE XX ; Start 06/02/17 at 13:00; Stop 06/02/17 at 13:01 Fondaparinux (Arixtra) 5 mg DAILY SC ; Start 06/02/17 at 09:00 Warfarin Sodium (Coumadin) 3 mg DAILY@17 PO ; Start 06/01/17 at 17:00 PREM FIERRO NP Jun 01, 2017 14:33
[2017-06-01] MEDS: VANCOMYCIN 1 GM in NS 250 ML IVPB SCH (14:57)
--- NOTE | 2017-06-01 15:30 | CONS ---
Date/Time of Note Date/Time of Note DATE: 06/01/17 TIME: 15:17 => ADDENDUM PLACED @ 20:29 06/01/17 Assessment/Plan Assessment/Plan Chief Complaint/Hosp Course ADDENDUM @ 20:26 * I was paged by the NOC shift RN that patient developed fever >101.2. No central lines. Will repeat BCx and repeat UA, CURINE C&S tonight ```````````````````````````````````````````````````````````````````````````````` ```````````````````````````````````````````````````````````` ID PROGRESS NOTE ABX DAY # Vancomycin IV , fluconazole, meropenem. 24H INTERVAL SUMMARY * Clinically about the same -- slow improvement -- CT head/Carotids done today - no septic issues noted on reports * Resting comfortably, no fevers, WBC down significantly, [place]utanese speaking, VSS , low grade temp 99.3, supplemental O2 via NC, NAD PHYSICAL EXAMINATION: GENERAL: VSS, NAD, no fever HEENT: Unremarkable NECK: Trach midline CHEST: Equal chest rise bilaterally, without dyspnea on observation HEART: Pulse RRR ABDOMEN: Soft, left flank pain EXTREMITIES: Warm SKIN: Warm, dry, mild dependent edema x4 ID ASSESSMENT: 76 yo F admitted with: 1. Sepsis versus systemic inflammatory response syndrome with persistent leukocytosis secondary to #2 2. Left kidney abscess versus pseudocyst * Per note: patient has perinephric hematoma/bleeding. 3. Bacteremia with blood culture on admission grew Bacillus species consistent with contaminant 4. Left lung base atelectasis w/mall right pleural effusion and moderate left pleural effusion. 5. Coronary artery disease with a history of mitral valve mechanical prosthesis and ejection fraction of 40% 6. History of permanent pacemaker 7. Chronic pancreatitis with dilated pancreatic duct and multiple small cysts. 8. Acute TIA 9. Thrombosis IJ while on Coumadin ABX ALLERGIES: KNDA PCN CURRENT ABX: ABX DAY # => Vancomycin IV , fluconazole, meropenem. ID RECOMMENDATIONS: 1. Continue current ABX 2. Per note: patient has perinephric hematoma/bleeding while on Coumadin * Continue to observe for improvement on ABX * There is risk of further bleeding with needle aspiration . Problems: Consultation Date/Type/Reason Admit Date/Time May 25, 2017 at 00:06 Initial Consult Date 05/30/17 Type of Consultation: id Referring Provider: DUANE NGUYỄN MD Exam/Review of Systems Vital Signs Vitals Vital Signs Date Time Temp Pulse Resp B/P Pulse Ox O2 Delivery O2 Flow Rate FiO2 06/01/17 12:30 98.0 98 18 121/67 98 06/01/17 08:10 Nasal Cannula 3.0 Intake and Output 05/31/17 05/31/17 06/01/17 15:00 23:00 07:00 Intake Total 840 ml 1231.2 ml Balance 840 ml 1231.2 ml Results Result Diagram: 06/01/17 0604 06/01/17 0604 Results 24 hrs Laboratory Tests Test 05/31/17 17:56 06/01/17 06:04 06/01/17 06:06 Bedside Glucose 137 White Blood Count 25.2 #H Red Blood Count 4.06 L Hemoglobin 12.0 Hematocrit 35.7 L Mean Corpuscular Volume 87.9 Mean Corpuscular Hemoglobin 29.6 Mean Corpuscular Hemoglobin Concent 33.6 Red Cell Distribution Width 14.6 H Platelet Count 139 L Mean Platelet Volume 12.5 H Neutrophils % 90.0 H Band Neutrophils % 7.0 H Monocytes % 2.0 Eosinophils % Metamyelocytes % 1.0 H Neutrophils # 22.7 H Monocytes # 0.5 Eosinophils # Metamyelocytes # 0.3 Platelet Estimate PLT APPEAR DECREASED Sickle Cells OCCASIONAL Target Cells FEW Ovalocytes FEW Sodium Level 133 L Potassium Level 3.4 L Chloride Level 96 L Carbon Dioxide Level 30 Anion Gap 10 Blood Urea Nitrogen 27 #H Creatinine 0.73 Glucose Level 69 #L Calcium Level 7.3 L Prothrombin Time 17.6 #H Prothrombin Time Ratio 1.4 INR International Normalized Ratio 1.44 Medications Medications Current Medications Lubiprostone (Amitiza) 24 mcg BID PO Last administered on 06/01/17 09:00; Admin Dose 24 MCG; Start 05/25/17 at 09:00 Nitroglycerin (Nitroglycerin (Sl Tab) 0.4 Mg) 0.4 tab PRN SL ; Start 05/25/17 at 06:00 Pantoprazole (Protonix Tab) 40 mg DAILY@06 PO Last administered on 06/01/17 05 :41; Admin Dose 40 MG; Start 05/26/17 at 06:00 Acetaminophen 650 mg 650 mg Q6H PRN PO PAIN AND OR ELEVATED TEMP Last administered on 05/29/17 21:47; Admin Dose 650 MG; Start 05/25/17 at 06:30 Sodium Chloride (NS) 1,000 ml @ 25 mls/hr Q24H IV Last administered on 11:28; Admin Dose 25 MLS/HR; Start 05/25/17 at 07:00 Magnesium Oxide (Mag-Ox 400) 400 mg DAILY PO Last administered on 06/01/17 09: 00; Admin Dose 400 MG; Start 05/26/17 at 09:00 Guaifenesin/ Dextromethorphan (Robitussin Dm Liquid Cup) 5 ml Q4H PRN PO COUGH Last administered on 05/28/17 18:39; Admin Dose 5 ML; Start 05/25/17 at 15:00 Metoprolol Tartrate (Lopressor) 5 mg Q4H PRN IV HR>110 SBP>180mmhg Last administered on 05/26/17 15:59; Admin Dose 5 MG; Start 05/25/17 at 15:30 Lactobacillus Acidophilus/ Rhamnosus (Culturelle) 1 cap DAILY PO Last administered on 06/01/17 09:00; Admin Dose 1 CAP; Start 05/27/17 at 09:00 Atenolol 25 mg 25 mg BID PO Last administered on 05/31/17 08:30; Admin Dose 25 MG; Start 05/26/17 at 21:00; Status Future Hold Sodium Chloride (NS) 1,000 ml @ 40 mls/hr Q24H IV Last administered on 03:18; Admin Dose 40 MLS/HR; Start 05/28/17 at 11:00 Polyethylene Glycol (Miralax) 8.5 gm DAILY PO Last administered on 06/01/17 09 :00; Admin Dose 8.5 GM; Start 05/29/17 at 09:00 Hydromorphone HCl 0.5 mg 0.5 mg Q6H PRN IV PAIN Last administered on 05/30/17 21:24; Admin Dose 0.5 MG; Start 05/29/17 at 01:00 Fluconazole/ Sodium Chloride 50 ml @ 50 mls/hr Q24H IVPB Last administered on 13:13; Admin Dose 50 MLS/HR; Start 05/30/17 at 12:30 Vancomycin HCl 250 ml @ 125 mls/hr Q24H IVPB Last administered on 06/01/17 14 :57; Admin Dose 125 MLS/HR; Start 05/31/17 at 14:00 Meropenem/Sodium Chloride 50 ml @ 200 mls/hr Q12H IVPB Last administered on 02:48; Admin Dose 200 MLS/HR; Start 05/31/17 at 03:00 Multivitamins/ Thiamine HCl/ Folic Acid/Sodium Chloride (Mvi Adult/ Vitamin B1/ Folic Acid/NS) 1,011.2 ml @ 125 mls/ hr DAILY@09 IVPB Last administered on 09:01; Admin Dose 125 MLS/HR; Start 05/31/17 at 09:00 Diltiazem HCl (Cardizem) 30 mg Q8 PO ; Start 05/31/17 at 22:00; Status Future Hold Bisacodyl (Dulcolax Supp) 10 mg Q48H PRN [place] CONSTIPATION Last administered on 21:23; Admin Dose 10 MG; Start 05/31/17 at 17:00 Ergocalciferol (Drisdol) 50,000 unit Q7D PO ; Start 05/31/17 at 17:00 Miscellaneous Information (*Rx Drug Level Order Reminder*) VANCOMYCIN TROUGH AT 1300 ONCE ONCE XX ; Start 06/02/17 at 13:00; Stop 06/02/17 at 13:01 Fondaparinux (Arixtra) 5 mg DAILY SC ; Start 06/02/17 at 09:00 Warfarin Sodium (Coumadin) 3 mg DAILY@17 PO ; Start 06/01/17 at 17:00 CLAY GRIDER NP Jun 01, 2017 15:29
--- NOTE | 2017-06-01 15:55 | PN ---
Date/Time of Note Date/Time of Note DATE: 06/01/17 TIME: 15:47 Assessment/Plan VTE Prophylaxis VTE Prophylaxis Intervention: SCD's Lines/Catheters IV [facility] Peripheral IV Urinary Cath still in place: No Assessment/Plan Chief Complaint/Hosp Course Patient has perinephric fluid collection which is most likely a hematoma. She had a brief episode yesterday afternoon consistent with TIA. She is feeling much better today Will do a renal ultrasound in a.m. to check on the kidney, make sure that the perinephric hematoma has not increased in size. Problems: Assessment/Plan Perinephric fluid collection which is most likely a hematoma patient has been on anticoagulation before particularly on Coumadin because of mitral valve replacement the patient did have a TIA yesterday she needed to be restarted on anticoagulation as her INR has come down to normal. It is okay to renew that we will have to monitor her kidney and the fluid collection around it Subjective 24 Hr Interval Summary Subjective hx not possible: other (Patient's family at bedside and they help translate. Patient today is feeling much better. Yesterday she had an episode around 6 PM while she was having difficulty speaking and was thought to have an acute TIA.) Constitutional: no complaints Eyes: no complaints ENT: no complaints Respiratory: no complaints, No cough Cardiovascular: No chest pain Gastrointestinal: No nausea, No pain, No vomiting Genitourinary: No bleeding, No hematuria Skin: no complaints Neurologic: No focal-weakness Endocrine: no complaints Psychological: no complaints Exam/Review of Systems Vital Signs Vitals Vital Signs Date Time Temp Pulse Resp B/P Pulse Ox O2 Delivery O2 Flow Rate FiO2 06/01/17 12:30 98.0 98 18 121/67 98 06/01/17 08:10 Nasal Cannula 3.0 Intake and Output 05/31/17 05/31/17 06/01/17 15:00 23:00 07:00 Intake Total 840 ml 1231.2 ml Balance 840 ml 1231.2 ml Exam Constitutional: alert, oriented Psych: no complaints Head: normocephalic Eyes: nl conjunctiva ENMT: nl external ears & nose Neck: supple Respiratory: normal air movement Gastrointestinal: non-tender, soft, No mass Genitourinary - Female: No CVA tenderness Musculoskeletal: nl extremities to inspection Extremities: No edema, No palpable cord Skin: nl turgor Lymph: nl lymph nodes Results Result Diagram: 06/01/17 0604 06/01/17 0604 Results 24 hrs Laboratory Tests Test 05/31/17 17:56 06/01/17 06:04 06/01/17 06:06 Bedside Glucose 137 White Blood Count 25.2 #H Red Blood Count 4.06 L Hemoglobin 12.0 Hematocrit 35.7 L Mean Corpuscular Volume 87.9 Mean Corpuscular Hemoglobin 29.6 Mean Corpuscular Hemoglobin Concent 33.6 Red Cell Distribution Width 14.6 H Platelet Count 139 L Mean Platelet Volume 12.5 H Neutrophils % 90.0 H Band Neutrophils % 7.0 H Monocytes % 2.0 Eosinophils % Metamyelocytes % 1.0 H Neutrophils # 22.7 H Monocytes # 0.5 Eosinophils # Metamyelocytes # 0.3 Platelet Estimate PLT APPEAR DECREASED Sickle Cells OCCASIONAL Target Cells FEW Ovalocytes FEW Sodium Level 133 L Potassium Level 3.4 L Chloride Level 96 L Carbon Dioxide Level 30 Anion Gap 10 Blood Urea Nitrogen 27 #H Creatinine 0.73 Glucose Level 69 #L Calcium Level 7.3 L Prothrombin Time 17.6 #H Prothrombin Time Ratio 1.4 INR International Normalized Ratio 1.44 Medications Medications Current Medications Lubiprostone (Amitiza) 24 mcg BID PO Last administered on 06/01/17 09:00; Admin Dose 24 MCG; Start 05/25/17 at 09:00 Nitroglycerin (Nitroglycerin (Sl Tab) 0.4 Mg) 0.4 tab PRN SL ; Start 05/25/17 at 06:00 Pantoprazole (Protonix Tab) 40 mg DAILY@06 PO Last administered on 06/01/17 05 :41; Admin Dose 40 MG; Start 05/26/17 at 06:00 Acetaminophen 650 mg 650 mg Q6H PRN PO PAIN AND OR ELEVATED TEMP Last administered on 05/29/17 21:47; Admin Dose 650 MG; Start 05/25/17 at 06:30 Sodium Chloride (NS) 1,000 ml @ 25 mls/hr Q24H IV Last administered on 11:28; Admin Dose 25 MLS/HR; Start 05/25/17 at 07:00 Magnesium Oxide (Mag-Ox 400) 400 mg DAILY PO Last administered on 06/01/17 09: 00; Admin Dose 400 MG; Start 05/26/17 at 09:00 Guaifenesin/ Dextromethorphan (Robitussin Dm Liquid Cup) 5 ml Q4H PRN PO COUGH Last administered on 05/28/17 18:39; Admin Dose 5 ML; Start 05/25/17 at 15:00 Metoprolol Tartrate (Lopressor) 5 mg Q4H PRN IV HR>110 SBP>180mmhg Last administered on 05/26/17 15:59; Admin Dose 5 MG; Start 05/25/17 at 15:30 Lactobacillus Acidophilus/ Rhamnosus (Culturelle) 1 cap DAILY PO Last administered on 06/01/17 09:00; Admin Dose 1 CAP; Start 05/27/17 at 09:00 Atenolol 25 mg 25 mg BID PO Last administered on 05/31/17 08:30; Admin Dose 25 MG; Start 05/26/17 at 21:00; Status Future Hold Sodium Chloride (NS) 1,000 ml @ 40 mls/hr Q24H IV Last administered on 03:18; Admin Dose 40 MLS/HR; Start 05/28/17 at 11:00 Polyethylene Glycol (Miralax) 8.5 gm DAILY PO Last administered on 06/01/17 09 :00; Admin Dose 8.5 GM; Start 05/29/17 at 09:00 Hydromorphone HCl 0.5 mg 0.5 mg Q6H PRN IV PAIN Last administered on 05/30/17 21:24; Admin Dose 0.5 MG; Start 05/29/17 at 01:00 Fluconazole/ Sodium Chloride 50 ml @ 50 mls/hr Q24H IVPB Last administered on 13:13; Admin Dose 50 MLS/HR; Start 05/30/17 at 12:30 Vancomycin HCl 250 ml @ 125 mls/hr Q24H IVPB Last administered on 06/01/17 14 :57; Admin Dose 125 MLS/HR; Start 05/31/17 at 14:00 Meropenem/Sodium Chloride 50 ml @ 200 mls/hr Q12H IVPB Last administered on 02:48; Admin Dose 200 MLS/HR; Start 05/31/17 at 03:00 Multivitamins/ Thiamine HCl/ Folic Acid/Sodium Chloride (Mvi Adult/ Vitamin B1/ Folic Acid/NS) 1,011.2 ml @ 125 mls/ hr DAILY@09 IVPB Last administered on 09:01; Admin Dose 125 MLS/HR; Start 05/31/17 at 09:00 Diltiazem HCl (Cardizem) 30 mg Q8 PO ; Start 05/31/17 at 22:00; Status Future Hold Bisacodyl (Dulcolax Supp) 10 mg Q48H PRN [place] CONSTIPATION Last administered on 21:23; Admin Dose 10 MG; Start 05/31/17 at 17:00 Ergocalciferol (Drisdol) 50,000 unit Q7D PO ; Start 05/31/17 at 17:00 Miscellaneous Information (*Rx Drug Level Order Reminder*) VANCOMYCIN TROUGH AT 1300 ONCE ONCE XX ; Start 06/02/17 at 13:00; Stop 06/02/17 at 13:01 Fondaparinux (Arixtra) 5 mg DAILY SC ; Start 06/02/17 at 09:00 Warfarin Sodium (Coumadin) 3 mg DAILY@17 PO ; Start 06/01/17 at 17:00 ANA WILKINSON MD Jun 01, 2017 15:55
[2017-06-01] MEDS: LEVALBUTEROL (NEB) 0.63 MG/3 ML AMP HHN PRN (16:40)
[2017-06-01] MEDS: WARFARIN 3 MG TAB PO SCH (17:10)
[2017-06-01] MEDS: METOPROLOL 5 MG INJ IV PRN (17:11)
--- NOTE | 2017-06-01 17:56 | RADRPT ---
PROCEDURE: XR Chest. CLINICAL INDICATION: SOB/Chest congestion TECHNIQUE: Single frontal chest x-ray. COMPARISON: None. FINDINGS: There is increased moderate to large left pleural effusion with left basilar atelectasis. There is a small right pleural effusion. . There is a left-sided biventricular cardiac pacer in place. Card iac valve prosthesis is in place.. The cardiomediastinal silhouette is unremarkable. The osseous st ructures are intact. IMPRESSION: Moderate to large left pleural effusion with left basilar consolidation increased since previous. Small right pleural effusion. Cardiomegaly status post sternotomy with cardiac pacer in valve prosthesis in place.. RPTAT: [facility] .Tom Stahl MD, Date Time Electronically viewed and signed by .Tom Stahl MD, on 06/01/2017 17:55 .L/
--- NOTE | 2017-06-01 18:16 | PN ---
Date/Time of Note Date/Time of Note DATE: 06/01/17 TIME: 18:14 Assessment/Plan VTE Prophylaxis VTE Prophylaxis Intervention: other Lines/Catheters IV Catheter Type (from Nrs): Peripheral IV Urinary Cath still in place: No Assessment/Plan Chief Complaint/Hosp Course SEPSIS AFIB HTN ASHD hyponatremia PEURAL EFFUSION UTI LOW EF vicki platelet better PLAN LASIX ANTIBIOTIC antibiotic BUMEX Problems: Subjective 24 Hr Interval Summary Respiratory: shortness of breath (+) Exam/Review of Systems Vital Signs Vitals Vital Signs Date Time Temp Pulse Resp B/P Pulse Ox O2 Delivery O2 Flow Rate FiO2 06/01/17 16:40 103 24 98 Nasal Cannula 5.0 06/01/17 16:06 98.0 153/70 Intake and Output 05/31/17 05/31/17 06/01/17 15:00 23:00 07:00 Intake Total 840 ml 1231.2 ml Balance 840 ml 1231.2 ml Exam Neck: supple Respiratory: diminished breath sounds Cardiovascular: irregular rhythm Gastrointestinal: bowel sounds (+), soft Extremities: edema (+) Results Result Diagram: 06/01/17 0604 06/01/17 0604 Results 24 hrs Laboratory Tests Test 06/01/17 06:04 06/01/17 06:06 White Blood Count 25.2 #H Red Blood Count 4.06 L Hemoglobin 12.0 Hematocrit 35.7 L Mean Corpuscular Volume 87.9 Mean Corpuscular Hemoglobin 29.6 Mean Corpuscular Hemoglobin Concent 33.6 Red Cell Distribution Width 14.6 H Platelet Count 139 L Mean Platelet Volume 12.5 H Neutrophils % 90.0 H Band Neutrophils % 7.0 H Monocytes % 2.0 Eosinophils % Metamyelocytes % 1.0 H Neutrophils # 22.7 H Monocytes # 0.5 Eosinophils # Metamyelocytes # 0.3 Platelet Estimate PLT APPEAR DECREASED Sickle Cells OCCASIONAL Target Cells FEW Ovalocytes FEW Sodium Level 133 L Potassium Level 3.4 L Chloride Level 96 L Carbon Dioxide Level 30 Anion Gap 10 Blood Urea Nitrogen 27 #H Creatinine 0.73 Glucose Level 69 #L Calcium Level 7.3 L Prothrombin Time 17.6 #H Prothrombin Time Ratio 1.4 INR International Normalized Ratio 1.44 Medications Medications Current Medications Lubiprostone (Amitiza) 24 mcg BID PO Last administered on 06/01/17 09:00; Admin Dose 24 MCG; Start 05/25/17 at 09:00 Nitroglycerin (Nitroglycerin (Sl Tab) 0.4 Mg) 0.4 tab PRN SL ; Start 05/25/17 at 06:00 Pantoprazole (Protonix Tab) 40 mg DAILY@06 PO Last administered on 06/01/17 05 :41; Admin Dose 40 MG; Start 05/26/17 at 06:00 Acetaminophen 650 mg 650 mg Q6H PRN PO PAIN AND OR ELEVATED TEMP Last administered on 05/29/17 21:47; Admin Dose 650 MG; Start 05/25/17 at 06:30 Sodium Chloride (NS) 1,000 ml @ 25 mls/hr Q24H IV Last administered on 11:28; Admin Dose 25 MLS/HR; Start 05/25/17 at 07:00 Magnesium Oxide (Mag-Ox 400) 400 mg DAILY PO Last administered on 06/01/17 09: 00; Admin Dose 400 MG; Start 05/26/17 at 09:00 Guaifenesin/ Dextromethorphan (Robitussin Dm Liquid Cup) 5 ml Q4H PRN PO COUGH Last administered on 05/28/17 18:39; Admin Dose 5 ML; Start 05/25/17 at 15:00 Metoprolol Tartrate (Lopressor) 5 mg Q4H PRN IV HR>110 SBP>180mmhg Last administered on 06/01/17 17:11; Admin Dose 5 MG; Start 05/25/17 at 15:30 Lactobacillus Acidophilus/ Rhamnosus (Culturelle) 1 cap DAILY PO Last administered on 06/01/17 09:00; Admin Dose 1 CAP; Start 05/27/17 at 09:00 Atenolol 25 mg 25 mg BID PO Last administered on 05/31/17 08:30; Admin Dose 25 MG; Start 05/26/17 at 21:00; Status Future Hold Sodium Chloride (NS) 1,000 ml @ 40 mls/hr Q24H IV Last administered on 03:18; Admin Dose 40 MLS/HR; Start 05/28/17 at 11:00 Polyethylene Glycol (Miralax) 8.5 gm DAILY PO Last administered on 06/01/17 09 :00; Admin Dose 8.5 GM; Start 05/29/17 at 09:00 Hydromorphone HCl 0.5 mg 0.5 mg Q6H PRN IV PAIN Last administered on 05/30/17 21:24; Admin Dose 0.5 MG; Start 05/29/17 at 01:00 Fluconazole/ Sodium Chloride 50 ml @ 50 mls/hr Q24H IVPB Last administered on 13:13; Admin Dose 50 MLS/HR; Start 05/30/17 at 12:30 Vancomycin HCl 250 ml @ 125 mls/hr Q24H IVPB Last administered on 06/01/17 14 :57; Admin Dose 125 MLS/HR; Start 05/31/17 at 14:00 Meropenem/Sodium Chloride (Merrem 1 Gm/50 ml (Pmx)) 50 ml @ 200 mls/hr Q12H IVPB Last administered on 06/01/17 17:09; Admin Dose 200 MLS/HR; Start at 03:00 Diltiazem HCl (Cardizem) 30 mg Q8 PO ; Start 05/31/17 at 22:00; Status Future Hold Bisacodyl (Dulcolax Supp) 10 mg Q48H PRN [place] CONSTIPATION Last administered on 21:23; Admin Dose 10 MG; Start 05/31/17 at 17:00 Ergocalciferol (Drisdol) 50,000 unit Q7D PO ; Start 05/31/17 at 17:00 Miscellaneous Information (*Rx Drug Level Order Reminder*) VANCOMYCIN TROUGH AT 1300 ONCE ONCE XX ; Start 06/02/17 at 13:00; Stop 06/02/17 at 13:01 Fondaparinux (Arixtra) 5 mg DAILY SC ; Start 06/02/17 at 09:00 Warfarin Sodium (Coumadin) 3 mg DAILY@17 PO Last administered on 06/01/17 17: 10; Admin Dose 3 MG; Start 06/01/17 at 17:00 Multivitamins Therapeutic (Theragran) 1 tab DAILY PO ; Start 06/02/17 at 09:00 Folic Acid (Folic Acid) 1 mg DAILY PO ; Start 06/02/17 at 09:00 Thiamine HCl (Vitamin B1) 100 mg DAILY PO ; Start 06/02/17 at 09:00 DUANE NGUYỄN MD Jun 01, 2017 18:15
[2017-06-01] MEDS: HYDROmorphONE 1 MG/ML SYG IV PRN (19:53)
[2017-06-01] MEDS ORDERED: BUMETANIDE IV ONE (20:00)
[2017-06-01] MEDS ORDERED: DEXTROSE 5% IV ONE (20:00)
[2017-06-01] MEDS: POTASSIUM CHLORIDE (SR) 20 MEQ TAB PO SCH (20:44)
[2017-06-01] MEDS: DILTIAZEM 30 MG TAB PO SCH (22:10)
[2017-06-01 23:31] LABS: ADD UMIC YES; UR ASCORBIC ACID 20 mg/dL (NEGATIVE); UR BILIRUBIN (Dip) NEGATIVE (NEGATIVE); UR BLOOD (Dip) NEGATIVE (NEGATIVE); UR CLARITY CLOUDY (CLEAR); UR COLOR AMBER (YELLOW); UR GLUCOSE (Dip) NEGATIVE (NEGATIVE); UR KETONES (Dip) NEGATIVE (NEGATIVE); UR LEUKOCYTE ESTERASE (Dip) NEGATIVE Leu/ul (NEGATIVE); UR NITRITE (Dip) NEGATIVE (NEGATIVE); UR RBC 3 /HPF (0-5); UR SPECIFIC GRAVITY (Dip) 1.021 (1.003-1.030); UR TOTAL PROTEIN (Dip) NEGATIVE (NEGATIVE); UR UROBILINOGEN (Dip) 1+ mg/dL (NEGATIVE)
[2017-06-02] VITALS (12 sets, daily range): BP systolic 105–139; BP diastolic 55–77; PULSE 101–129; RESP 17–20
[2017-06-02] MEDS: MEROPENEM 1 GM/50ML(PMX) 50 ML IVPB SCH ×2 (02:41→16:42)
[2017-06-02] MEDS: PANTOPRAZOLE (EC) 40 MG TAB PO SCH (05:48)
[2017-06-02] MEDS: DILTIAZEM 30 MG TAB PO SCH ×3 (05:49→21:28)
[2017-06-02] MEDS: FUROSEMIDE 20 MG INJ IV SCH (05:49)
[2017-06-02 05:58] LABS: ADD SCAN DIFF NO
[2017-06-02 06:01] LABS: ABNORMAL IP MESSAGE 1; HEMOGLOBIN 12.2 g/dl (12.0-16.0); MEAN CORPUSCULAR HEMOGLOBIN 29.7 pg (29.0-33.0); MEAN CORPUSCULAR HGB CONC 33.9 g/dl (32.0-37.0); MEAN CORPUSCULAR VOLUME 87.6 fl (82.0-101.0); MEAN PLATELET VOLUME 12.5 fl (7.4-10.4); PLATELET COUNT 155 10^3/UL (140-415); RED BLOOD COUNT 4.11 10^6/ul (4.20-5.40); RED CELL DISTRIBUTION WIDTH 14.2 % (11.5-14.5); WHITE BLOOD COUNT 22.4 10^3/ul (4.8-10.8)
[2017-06-02 06:25] LABS: INR 1.16; PROTIME 14.9 Sec (12.2-14.2); PT RATIO 1.2
[2017-06-02 06:42] LABS: ALBUMIN 2.6 g/dl (3.3-4.9); ALBUMIN/GLOBULIN RATIO 0.89; BILIRUBIN,INDIRECT 0.6 mg/dl (0-1.1); BILIRUBIN,TOTAL 0.6 mg/dl (0.2-1.3); CALCIUM 6.9 mg/dl (8.4-10.2); CREATININE 0.72 mg/dl (0.44-1.00); POTASSIUM 3.2 mmol/L (3.5-5.1); TOTAL PROTEIN 5.5 g/dl (6.1-8.1)
[2017-06-02] MEDS: MAGNESIUM OXIDE 400 MG TAB PO SCH (09:03)
[2017-06-02] MEDS: LUBIPROSTONE 24 MCG CAP PO SCH ×2 (09:03→21:26)
[2017-06-02] MEDS: MULTIVITAMINS THERAPEUTIC TAB PO SCH (09:03)
[2017-06-02] MEDS: FOLIC ACID 1 MG TAB PO SCH (09:03)
[2017-06-02] MEDS: THIAMINE 100 MG TAB PO SCH (09:03)
[2017-06-02] MEDS: LEVOTHYROXINE 75 MCG TAB PO SCH (09:03)
[2017-06-02] MEDS: POTASSIUM CHLORIDE (SR) 20 MEQ TAB PO SCH ×2 (09:03→21:28)
[2017-06-02] MEDS: POLYETHYLENE GLYCOL 17 GM PACKET PO SCH (09:03)
[2017-06-02] MEDS: LACTOBACILLUS RHAMNOSUS CAP PO SCH (09:03)
[2017-06-02] MEDS: FONDAPARINUX 2.5 MG SYG SC SCH (09:09)
[2017-06-02 10:13] LABS: LYMPHOCYTES # 0.7 10^3/ul (0.8-2.9); MONOCYTE # 1.1 10^3/ul (0.3-0.9); MYELOCYTES # 0.7; OVALOCYTES 1+
--- NOTE | 2017-06-02 12:01 | CONS ---
Date/Time of Note Date/Time of Note DATE: 06/02/17 TIME: 11:53 Assessment/Plan Assessment/Plan Chief Complaint/Hosp Course IMP: 1.tachycardia-? S Tach/PAF-overall improved when recieves BB/CCB regimen [facility] [place] device 2.Hypotension-improved/stable/tolerating medications 3.AF-some RVR as dilt/atenolol held 4.Fevers/leukcytosis-increased significantly 5. TIA 6.UTI 7. coagulopathy-s/p Vitamin k and now subtherapeutic 8. L sided rib pain-positive TTP/resolved-negative troponin 9. 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 Hypontremia 14. Episode of AMS and [employer] thought to be due to possible CVA-head CT negative. Currently stable 15. CHF-systolic acute on chronic LVEF 40% by echo this admit 16. Pleural effusion Recc: -Tele -Will resume BB and follow BP closely and then CCB as necessary -Continue abx's and f/u cx data -treat fevers -urology following -Patient with subtherapeutic INR now and possible cerebral event/IJ thrombus will cover with arixtra for short period -Follow volume status closely s/p Bumex drip and continue lasix with slight increase Problems: Consultation Date/Type/Reason Admit Date/Time May 25, 2017 at 00:06 Initial Consult Date 05/25/17 Type of Consultation: cardiology Reason for Consultation tachycardia Referring Provider: DUANE NGUYỄN MD Exam/Review of Systems Vital Signs Vitals Vital Signs Date Time Temp Pulse Resp B/P Pulse Ox O2 Delivery O2 Flow Rate FiO2 06/02/17 11:15 97.8 86 18 119/57 94 06/02/17 08:24 4.0 06/02/17 08:20 Nasal Cannula Intake and Output 06/01/17 06/01/17 06/02/17 15:00 23:00 07:00 Intake Total 1050 ml 280 ml Balance 1050 ml 280 ml Exam Review of Systems: CONSTITUTIONAL: No fevers, chills. PULMONARY: No sob CARDIOVASCULAR: No chest pain/palpitations GASTROINTESTINAL: No nausea/vomiting. GENITOURINARY: No hematuria/dysuria. MUSCULOSKELETAL: No myagias/arthalgias. PSYCHIATRIC: The patient denies depression. NEUROLOGIC: lethargic Constitutional: alert Psych: no complaints Head: normocephalic ENMT: mucosa pink and moist Neck: jvd (9 cm water), supple Respiratory: diminished breath sounds Cardiovascular: regular rate and rhythm Gastrointestinal: non-tender, soft Musculoskeletal: muscle tone Extremities: edema (none) Neurological: other (No focal deficits) Results Result Diagram: 06/02/17 0533 06/02/17 0533 Results 24 hrs Laboratory Tests Test 06/01/17 23:00 06/02/17 05:33 Urine Color STANISLAW Urine Clarity CLOUDY A Urine pH 6.0 Urine Specific David 1.021 Urine Ketones NEGATIVE Urine Nitrite NEGATIVE Urine Bilirubin NEGATIVE Urine Urobilinogen 1+ H Urine Leukocyte Esterase NEGATIVE Urine Microscopic RBC 3 Urine Microscopic WBC 4 Urine Hemoglobin NEGATIVE Urine Glucose NEGATIVE Urine Total Protein NEGATIVE White Blood Count 22.4 H Red Blood Count 4.11 L Hemoglobin 12.2 Hematocrit 36.0 L Mean Corpuscular Volume 87.6 Mean Corpuscular Hemoglobin 29.7 Mean Corpuscular Hemoglobin Concent 33.9 Red Cell Distribution Width 14.2 Platelet Count 155 Mean Platelet Volume 12.5 H Neutrophils % 85.0 H Band Neutrophils % 1.0 Lymphocytes % 3.0 L Reactive Lymphocytes % 2.0 Monocytes % 5.0 Eosinophils % Basophils % Metamyelocytes % 1.0 H Myelocytes % 3.0 H Nucleated Red Blood Cells % Neutrophils # 19.0 H Lymphocytes # 0.7 L Monocytes # 1.1 H Eosinophils # Basophils # Metamyelocytes # 0.2 Myelocytes # 0.7 Nucleated Red Blood Cells # Differential Comment MANUAL DIFF Ovalocytes 1+ Prothrombin Time 14.9 H Prothrombin Time Ratio 1.2 INR International Normalized Ratio 1.16 Sodium Level 135 Potassium Level 3.2 L Chloride Level 90 L Carbon Dioxide Level 36 H Anion Gap 12 Blood Urea Nitrogen 22 H Creatinine 0.72 Glucose Level 96 Calcium Level 6.9 L Total Bilirubin 0.6 Direct Bilirubin 0.00 Indirect Bilirubin 0.6 Aspartate Amino Transf (AST/SGOT) 132 H Alanine Aminotransferase (ALT/SGPT) 105 H Alkaline Phosphatase 139 H B-Type Natriuretic Peptide 9700 H Total Protein 5.5 L Albumin 2.6 L Globulin 2.90 Albumin/Globulin Ratio 0.89 Medications Medications Current Medications Lubiprostone (Amitiza) 24 mcg BID PO Last administered on 06/02/17 09:03; Admin Dose 24 MCG; Start 05/25/17 at 09:00 Nitroglycerin (Nitroglycerin (Sl Tab) 0.4 Mg) 0.4 tab PRN SL ; Start 05/25/17 at 06:00 Pantoprazole (Protonix Tab) 40 mg DAILY@06 PO Last administered on 06/02/17 05 :48; Admin Dose 40 MG; Start 05/26/17 at 06:00 Acetaminophen (Tylenol Tab) 650 mg Q6H PRN PO PAIN AND OR ELEVATED TEMP Last administered on 05/29/17 21:47; Admin Dose 650 MG; Start 05/25/17 at 06:30 Magnesium Oxide (Mag-Ox 400) 400 mg DAILY PO Last administered on 06/02/17 09: 03; Admin Dose 400 MG; Start 05/26/17 at 09:00 Guaifenesin/ Dextromethorphan (Robitussin Dm Liquid Cup) 5 ml Q4H PRN PO COUGH Last administered on 05/28/17 18:39; Admin Dose 5 ML; Start 05/25/17 at 15:00 Metoprolol Tartrate (Lopressor) 5 mg Q4H PRN IV HR>110 SBP>180mmhg Last administered on 06/01/17 17:11; Admin Dose 5 MG; Start 05/25/17 at 15:30 Lactobacillus Acidophilus/ Rhamnosus (Culturelle) 1 cap DAILY PO Last administered on 06/02/17 09:03; Admin Dose 1 CAP; Start 05/27/17 at 09:00 Atenolol (Tenormin) 25 mg BID PO Last administered on 05/31/17 08:30; Admin Dose 25 MG; Start 05/26/17 at 21:00; Status Future Hold Polyethylene Glycol (Miralax) 8.5 gm DAILY PO Last administered on 06/02/17 09 :03; Admin Dose 8.5 GM; Start 05/29/17 at 09:00 Hydromorphone HCl 0.5 mg 0.5 mg Q6H PRN IV PAIN Last administered on 06/01/17 19:53; Admin Dose 0.5 MG; Start 05/29/17 at 01:00 Fluconazole/ Sodium Chloride 50 ml @ 50 mls/hr Q24H IVPB Last administered on 13:13; Admin Dose 50 MLS/HR; Start 05/30/17 at 12:30 Vancomycin HCl 250 ml @ 125 mls/hr Q24H IVPB Last administered on 06/01/17 14 :57; Admin Dose 125 MLS/HR; Start 05/31/17 at 14:00 Meropenem/Sodium Chloride (Merrem 1 Gm/50 ml (Pmx)) 50 ml @ 200 mls/hr Q12H IVPB Last administered on 06/02/17 02:41; Admin Dose 200 MLS/HR; Start at 03:00 Diltiazem HCl (Cardizem) 30 mg Q8 PO Last administered on 06/02/17 05:49; Admin Dose 30 MG; Start 05/31/17 at 22:00; Status Future hold Bisacodyl (Dulcolax Supp) 10 mg Q48H PRN [place] CONSTIPATION Last administered on 21:23; Admin Dose 10 MG; Start 05/31/17 at 17:00 Ergocalciferol (Drisdol) 50,000 unit Q7D PO ; Start 05/31/17 at 17:00 Miscellaneous Information (*Rx Drug Level Order Reminder*) VANCOMYCIN TROUGH AT 1300 ONCE ONCE XX ; Start 06/02/17 at 13:00; Stop 06/02/17 at 13:01 Fondaparinux (Arixtra) 5 mg DAILY SC Last administered on 06/02/17 09:09; Admin Dose 5 MG; Start 06/02/17 at 09:00 Warfarin Sodium (Coumadin) 3 mg DAILY@17 PO Last administered on 06/01/17 17: 10; Admin Dose 3 MG; Start 06/01/17 at 17:00 Multivitamins Therapeutic (Theragran) 1 tab DAILY PO Last administered on 09:03; Admin Dose 1 TAB; Start 06/02/17 at 09:00 Folic Acid (Folic Acid) 1 mg DAILY PO Last administered on 06/02/17 09:03; Admin Dose 1 MG; Start 06/02/17 at 09:00 Thiamine HCl (Vitamin B1) 100 mg DAILY PO Last administered on 06/02/17 09:03 ; Admin Dose 100 MG; Start 06/02/17 at 09:00 Potassium Chloride (Klor-Con 20) 20 meq BID PO Last administered on 06/02/17t 09:03; Admin Dose 20 MEQ; Start 06/01/17 at 21:00; Stop 06/02/17 at 21:01 PLACIDO COREA Jun 02, 2017 12:00
[2017-06-02] MEDS: HYDROmorphONE 1 MG/ML SYG IV PRN ×2 (12:34→21:32)
[2017-06-02] MEDS: FLUCONAZOLE 100 MG/NS (PMX) 50 ML IVPB SCH (13:08)
[2017-06-02] MEDS: LEVALBUTEROL (NEB) 0.63 MG/3 ML AMP HHN PRN ×2 (13:31→19:05)
--- NOTE | 2017-06-02 13:48 | CONS ---
Date/Time of Note Date/Time of Note DATE: 06/02/17 TIME: 13:44 Assessment/Plan Assessment/Plan Chief Complaint/Hosp Course Patient is awake, complaining of left sided chest pain, she sounds congested and has lots of secretions, family at bedside Temperature 97.8 pulse 86 respirations 18 blood pressure 119/57 saturation 98 on 4 L. T-max 101.2 yesterday Chest x-ray on June 01 revealed increased left basilar consolidation and moderate to large left pleural effusion. Antibiotics: Vancomycin, meropenem, fluconazole Physical examination: Well-developed, fragile Filipino-speaking elderly woman who is alert in no distress. Head atraumatic normocephalic, sclera nonicteric. Neck is supple. Chest rise symmetrical breath sounds diminished basis, scattered crackles more on the left. Heart: S1, S2. Abdomen soft, bowel tones present. Patient is having left-sided pain on palpation as well as lower back pain. Extremities without cyanosis. Left upper extremity with trace edema. Assessment: 1. Sepsis versus systemic inflammatory response syndrome with persistent leukocytosis secondary to #2 2. Left kidney hematoma 3. Large left pleural effusion, possible underlying pneumonia 4. Bacteremia with blood culture on admission grew Bacillus species consistent with contaminant 4. Chest pain, cardiology on case 5. Coronary artery disease with a history of mitral valve mechanical prosthesis and ejection fraction of 40% 6. History of permanent pacemaker 7. Allergy: Penicillin Plan: Clinically stable, continue antibiotics, consider pulmonary evaluation, may need thoracentesis, cardiology urology recommendation Discussed with patient and family at bedside Problems: Consultation Date/Type/Reason Admit Date/Time May 25, 2017 at 00:06 Initial Consult Date 05/25/17 Type of Consultation: ID Referring Provider: DUANE NGUYỄN MD Exam/Review of Systems Vital Signs Vitals Vital Signs Date Time Temp Pulse Resp B/P Pulse Ox O2 Delivery O2 Flow Rate FiO2 06/02/17 13:31 97 18 98 Nasal Cannula 4.0 06/02/17 11:15 97.8 119/57 Intake and Output 06/01/17 06/01/17 06/02/17 15:00 23:00 07:00 Intake Total 1050 ml 280 ml Balance 1050 ml 280 ml Results Result Diagram: 06/02/17 0533 06/02/17 0533 Results 24 hrs Laboratory Tests Test 06/01/17 23:00 06/02/17 05:33 Urine Color STANISLAW Urine Clarity CLOUDY A Urine pH 6.0 Urine Specific [place] 1.021 Urine Ketones NEGATIVE Urine Nitrite NEGATIVE Urine Bilirubin NEGATIVE Urine Urobilinogen 1+ H Urine Leukocyte Esterase NEGATIVE Urine Microscopic RBC 3 Urine Microscopic WBC 4 Urine Hemoglobin NEGATIVE Urine Glucose NEGATIVE Urine Total Protein NEGATIVE White Blood Count 22.4 H Red Blood Count 4.11 L Hemoglobin 12.2 Hematocrit 36.0 L Mean Corpuscular Volume 87.6 Mean Corpuscular Hemoglobin 29.7 Mean Corpuscular Hemoglobin Concent 33.9 Red Cell Distribution Width 14.2 Platelet Count 155 Mean Platelet Volume 12.5 H Neutrophils % 85.0 H Band Neutrophils % 1.0 Lymphocytes % 3.0 L Reactive Lymphocytes % 2.0 Monocytes % 5.0 Eosinophils % Basophils % Metamyelocytes % 1.0 H Myelocytes % 3.0 H Nucleated Red Blood Cells % Neutrophils # 19.0 H Lymphocytes # 0.7 L Monocytes # 1.1 H Eosinophils # Basophils # Metamyelocytes # 0.2 Myelocytes # 0.7 Nucleated Red Blood Cells # Differential Comment MANUAL DIFF Ovalocytes 1+ Prothrombin Time 14.9 H Prothrombin Time Ratio 1.2 INR International Normalized Ratio 1.16 Sodium Level 135 Potassium Level 3.2 L Chloride Level 90 L Carbon Dioxide Level 36 H Anion Gap 12 Blood Urea Nitrogen 22 H Creatinine 0.72 Glucose Level 96 Calcium Level 6.9 L Total Bilirubin 0.6 Direct Bilirubin 0.00 Indirect Bilirubin 0.6 Aspartate Amino Transf (AST/SGOT) 132 H Alanine Aminotransferase (ALT/SGPT) 105 H Alkaline Phosphatase 139 H B-Type Natriuretic Peptide 9700 H Total Protein 5.5 L Albumin 2.6 L Globulin 2.90 Albumin/Globulin Ratio 0.89 Medications Medications Current Medications Lubiprostone (Amitiza) 24 mcg BID PO Last administered on 06/02/17 09:03; Admin Dose 24 MCG; Start 05/25/17 at 09:00 Nitroglycerin (Nitroglycerin (Sl Tab) 0.4 Mg) 0.4 tab PRN SL ; Start 05/25/17 at 06:00 Pantoprazole (Protonix Tab) 40 mg DAILY@06 PO Last administered on 06/02/17 05 :48; Admin Dose 40 MG; Start 05/26/17 at 06:00 Acetaminophen (Tylenol Tab) 650 mg Q6H PRN PO PAIN AND OR ELEVATED TEMP Last administered on 05/29/17 21:47; Admin Dose 650 MG; Start 05/25/17 at 06:30 Magnesium Oxide (Mag-Ox 400) 400 mg DAILY PO Last administered on 06/02/17 09: 03; Admin Dose 400 MG; Start 05/26/17 at 09:00 Guaifenesin/ Dextromethorphan (Robitussin Dm Liquid Cup) 5 ml Q4H PRN PO COUGH Last administered on 05/28/17 18:39; Admin Dose 5 ML; Start 05/25/17 at 15:00 Metoprolol Tartrate (Lopressor) 5 mg Q4H PRN IV HR>110 SBP>180mmhg Last administered on 06/01/17 17:11; Admin Dose 5 MG; Start 05/25/17 at 15:30 Lactobacillus Acidophilus/ Rhamnosus (Culturelle) 1 cap DAILY PO Last administered on 06/02/17 09:03; Admin Dose 1 CAP; Start 05/27/17 at 09:00 Atenolol (Tenormin) 25 mg BID PO Last administered on 05/31/17 08:30; Admin Dose 25 MG; Start 05/26/17 at 21:00; Status Future hold Polyethylene Glycol (Miralax) 8.5 gm DAILY PO Last administered on 06/02/17 09 :03; Admin Dose 8.5 GM; Start 05/29/17 at 09:00 Hydromorphone HCl 0.5 mg 0.5 mg Q6H PRN IV PAIN Last administered on 06/02/17 12:34; Admin Dose 0.5 MG; Start 05/29/17 at 01:00 Fluconazole/ Sodium Chloride 50 ml @ 50 mls/hr Q24H IVPB Last administered on 13:08; Admin Dose 50 MLS/HR; Start 05/30/17 at 12:30 Vancomycin HCl 250 ml @ 125 mls/hr Q24H IVPB Last administered on 06/01/17 14 :57; Admin Dose 125 MLS/HR; Start 05/31/17 at 14:00 Meropenem/Sodium Chloride (Merrem 1 Gm/50 ml (Pmx)) 50 ml @ 200 mls/hr Q12H IVPB Last administered on 06/02/17 02:41; Admin Dose 200 MLS/HR; Start at 03:00 Diltiazem HCl (Cardizem) 30 mg Q8 PO Last administered on 06/02/17 05:49; Admin Dose 30 MG; Start 05/31/17 at 22:00; Status Future hold Bisacodyl (Dulcolax Supp) 10 mg Q48H PRN [place] CONSTIPATION Last administered on 21:23; Admin Dose 10 MG; Start 05/31/17 at 17:00 Ergocalciferol (Drisdol) 50,000 unit Q7D PO ; Start 05/31/17 at 17:00 Fondaparinux (Arixtra) 5 mg DAILY SC Last administered on 06/02/17 09:09; Admin Dose 5 MG; Start 06/02/17 at 09:00 Warfarin Sodium (Coumadin) 3 mg DAILY@17 PO Last administered on 06/01/17 17: 10; Admin Dose 3 MG; Start 06/01/17 at 17:00 Multivitamins Therapeutic (Theragran) 1 tab DAILY PO Last administered on 09:03; Admin Dose 1 TAB; Start 06/02/17 at 09:00 Folic Acid (Folic Acid) 1 mg DAILY PO Last administered on 06/02/17 09:03; Admin Dose 1 MG; Start 06/02/17 at 09:00 Thiamine HCl (Vitamin B1) 100 mg DAILY PO Last administered on 06/02/17 09:03 ; Admin Dose 100 MG; Start 06/02/17 at 09:00 Potassium Chloride (Klor-Con 20) 20 meq BID PO Last administered on 06/02/17 09:03; Admin Dose 20 MEQ; Start 06/01/17 at 21:00; Stop 06/02/17 at 21:01 BALDOMERO STARKS NP Jun 02, 2017 13:47
--- NOTE | 2017-06-02 14:26 | RADRPT ---
PROCEDURE: XR Chest. CLINICAL INDICATION: Shortness of breath. Chest pain. TECHNIQUE: Single frontal chest x-ray. COMPARISON: 06/01/2017 FINDINGS: Sternotomy wires, cardiac valve prosthesis, left-sided dual chamber cardiac pacer in place unchanged . Cardiomegaly is again noted. . Moderate left pleural effusion with left basilar consolidation is unchanged.. Small right pleural effusion is unchanged. There are no new infiltrates or edema.. Th e osseous structures are intact. IMPRESSION: Moderate left pleural effusion with left basilar consolidation unchanged. Small right pleural effusion. Cardiomegaly with left-sided cardiac pacer and cardiac valve prosthesis in place.. RPTAT: [facility] .Tom Stahl MD, Date Time Electronically viewed and signed by .Tom Stahl MD, on 06/02/2017 14:26 .L/
[2017-06-02] MEDS: VANCOMYCIN 1 GM in NS 250 ML IVPB SCH (14:31)
--- NOTE | 2017-06-02 15:48 | CONS ---
Date/Time of Note Date/Time of Note DATE: 06/02/17 TIME: 15:24 Assessment/Plan Assessment/Plan Chief Complaint/Hosp Course 76 yo female on Coumadin admitted for TIA, who was found to have partial thrombosis of internal jugular vein. # Thrombosis while on Coumadin - Given that patient has a prosthetic mitral valve, her anticoagulation options are limited to coumadin but this was on hold because of supratherapeutic INR. Especially since this (IJ clot) is a relatively asymptomatic partial thrombosis, I do not think we need to change anticoagulation at this time. - I would recommend to keep the INR between 2.5-3.5. Given INR is >4 and urology concern for perinephric bleed., patient given one time dose of vit K low dose on 05/31/17. Now INR subtherapeutic at 1.16, patient restarted on 3 mg coumadin yesterday 06/01, continue 3 mg dose as patient supratherapeutic on 4 mg dose and takes 3-5 days to see effect of coumadin - consider bridging with lovenox while subtherapeutic but will defer to Dr. Nguyễn and Dr. Andrews as to whether concerned about perinephric bleed and want to hold off. Pending repeat US to eval hematoma per Dr. Andrews. hgb is st 12-13 stable and will follow # UTI -continue antibiotics #Ischemic Cardiomyopathy -management per cardiology Problems: Consultation Date/Type/Reason Admit Date/Time May 25, 2017 at 00:06 Initial Consult Date 05/30/17 Type of Consultation: Hematology Referring Provider: DUANE NGUYỄN MD 24 HR Interval Summary Free Text/Dictation No acute events. Pending thoracentesis. Exam/Review of Systems Vital Signs Vitals Vital Signs Date Time Temp Pulse Resp B/P Pulse Ox O2 Delivery O2 Flow Rate FiO2 06/02/17 13:31 97 18 98 Nasal Cannula 4.0 06/02/17 11:15 97.8 119/57 Intake and Output 06/01/17 06/01/17 06/02/17 15:00 23:00 07:00 Intake Total 1050 ml 280 ml Balance 1050 ml 280 ml Exam Constitutional: alert, oriented Psych: nl mood/affect Eyes: nl conjunctiva Neck: supple Respiratory: normal air movement Results Result Diagram: 06/02/17 0533 06/02/17 0533 Results 24 hrs Laboratory Tests Test 06/01/17 23:00 06/02/17 05:33 06/02/17 13:10 Urine Color STANISLAW Urine Clarity CLOUDY A Urine pH 6.0 Urine Specific [place] 1.021 Urine Ketones NEGATIVE Urine Nitrite NEGATIVE Urine Bilirubin NEGATIVE Urine Urobilinogen 1+ H Urine Leukocyte Esterase NEGATIVE Urine Microscopic RBC 3 Urine Microscopic WBC 4 Urine Hemoglobin NEGATIVE Urine Glucose NEGATIVE Urine Total Protein NEGATIVE White Blood Count 22.4 H Red Blood Count 4.11 L Hemoglobin 12.2 Hematocrit 36.0 L Mean Corpuscular Volume 87.6 Mean Corpuscular Hemoglobin 29.7 Mean Corpuscular Hemoglobin Concent 33.9 Red Cell Distribution Width 14.2 Platelet Count 155 Mean Platelet Volume 12.5 H Neutrophils % 85.0 H Band Neutrophils % 1.0 Lymphocytes % 3.0 L Reactive Lymphocytes % 2.0 Monocytes % 5.0 Eosinophils % Basophils % Metamyelocytes % 1.0 H Myelocytes % 3.0 H Nucleated Red Blood Cells % Neutrophils # 19.0 H Lymphocytes # 0.7 L Monocytes # 1.1 H Eosinophils # Basophils # Metamyelocytes # 0.2 Myelocytes # 0.7 Nucleated Red Blood Cells # Differential Comment MANUAL DIFF Ovalocytes 1+ Prothrombin Time 14.9 H Prothrombin Time Ratio 1.2 INR International Normalized Ratio 1.16 Sodium Level 135 Potassium Level 3.2 L Chloride Level 90 L Carbon Dioxide Level 36 H Anion Gap 12 Blood Urea Nitrogen 22 H Creatinine 0.72 Glucose Level 96 Calcium Level 6.9 L Total Bilirubin 0.6 Direct Bilirubin 0.00 Indirect Bilirubin 0.6 Aspartate Amino Transf (AST/SGOT) 132 H Alanine Aminotransferase (ALT/SGPT) 105 H Alkaline Phosphatase 139 H B-Type Natriuretic Peptide 9700 H Total Protein 5.5 L Albumin 2.6 L Globulin 2.90 Albumin/Globulin Ratio 0.89 Vancomycin Level Trough 8.7 L Medications Medications Current Medications Lubiprostone (Amitiza) 24 mcg BID PO Last administered on 06/02/17 09:03; Admin Dose 24 MCG; Start 05/25/17 at 09:00 Nitroglycerin (Nitroglycerin (Sl Tab) 0.4 Mg) 0.4 tab PRN SL ; Start 05/25/17 at 06:00 Pantoprazole (Protonix Tab) 40 mg DAILY@06 PO Last administered on 06/02/17 05 :48; Admin Dose 40 MG; Start 05/26/17 at 06:00 Acetaminophen (Tylenol Tab) 650 mg Q6H PRN PO PAIN AND OR ELEVATED TEMP Last administered on 05/29/17 21:47; Admin Dose 650 MG; Start 05/25/17 at 06:30 Magnesium Oxide (Mag-Ox 400) 400 mg DAILY PO Last administered on 06/02/17 09: 03; Admin Dose 400 MG; Start 05/26/17 at 09:00 Guaifenesin/ Dextromethorphan (Robitussin Dm Liquid Cup) 5 ml Q4H PRN PO COUGH Last administered on 05/28/17 18:39; Admin Dose 5 ML; Start 05/25/17 at 15:00 Metoprolol Tartrate (Lopressor) 5 mg Q4H PRN IV HR>110 SBP>180mmhg Last administered on 06/01/17 17:11; Admin Dose 5 MG; Start 05/25/17 at 15:30 Lactobacillus Acidophilus/ Rhamnosus (Culturelle) 1 cap DAILY PO Last administered on 06/02/17 09:03; Admin Dose 1 CAP; Start 05/27/17 at 09:00 Atenolol (Tenormin) 25 mg BID PO Last administered on 05/31/17 08:30; Admin Dose 25 MG; Start 05/26/17 at 21:00; Status Future hold Polyethylene Glycol (Miralax) 8.5 gm DAILY PO Last administered on 06/02/17 09 :03; Admin Dose 8.5 GM; Start 05/29/17 at 09:00 Hydromorphone HCl 0.5 mg 0.5 mg Q6H PRN IV PAIN Last administered on 06/02/17 12:34; Admin Dose 0.5 MG; Start 05/29/17 at 01:00 Fluconazole/ Sodium Chloride 50 ml @ 50 mls/hr Q24H IVPB Last administered on 13:08; Admin Dose 50 MLS/HR; Start 05/30/17 at 12:30 Vancomycin HCl 250 ml @ 125 mls/hr Q24H IVPB Last administered on 06/02/17 14 :31; Admin Dose 125 MLS/HR; Start 05/31/17 at 14:00; Stop 06/02/17 at 18:00 Meropenem/Sodium Chloride (Merrem 1 Gm/50 ml (Pmx)) 50 ml @ 200 mls/hr Q12H IVPB Last administered on 06/02/17 02:41; Admin Dose 200 MLS/HR; Start at 03:00 Diltiazem HCl (Cardizem) 30 mg Q8 PO Last administered on 06/02/17 14:31; Admin Dose 30 MG; Start 05/31/17 at 22:00; Status Future hold Bisacodyl (Dulcolax Supp) 10 mg Q48H PRN [place] CONSTIPATION Last administered on 21:23; Admin Dose 10 MG; Start 05/31/17 at 17:00 Ergocalciferol (Drisdol) 50,000 unit Q7D PO ; Start 05/31/17 at 17:00 Fondaparinux (Arixtra) 5 mg DAILY SC Last administered on 06/02/17 09:09; Admin Dose 5 MG; Start 06/02/17 at 09:00 Warfarin Sodium (Coumadin) 3 mg DAILY@17 PO Last administered on 06/01/17 17: 10; Admin Dose 3 MG; Start 06/01/17 at 17:00 Multivitamins Therapeutic (Theragran) 1 tab DAILY PO Last administered on 09:03; Admin Dose 1 TAB; Start 06/02/17 at 09:00 Folic Acid (Folic Acid) 1 mg DAILY PO Last administered on 06/02/17 09:03; Admin Dose 1 MG; Start 06/02/17 at 09:00 Thiamine HCl (Vitamin B1) 100 mg DAILY PO Last administered on 06/02/17 09:03 ; Admin Dose 100 MG; Start 06/02/17 at 09:00 Potassium Chloride 20 meq 20 meq BID PO Last administered on 06/02/17 09:03; Admin Dose 20 MEQ; Start 06/01/17 at 21:00; Stop 06/02/17 at 21:01 Vancomycin HCl/ Sodium Chloride (Vancocin/NS) 250 ml @ 83.333 mls/ hr Q24H IVPB ; Start 06/03/17 at 11:00 DEONTE MIRANDA MD Jun 02, 2017 15:34
--- NOTE | 2017-06-02 16:12 | CONS ---
Date/Time of Note Date/Time of Note DATE: 06/02/17 TIME: 16:08 Assessment/Plan Assessment/Plan Chief Complaint/Hosp Course Assessment 1. Left renal hematoma surrounding effusion and ascites. Currently being evaluated by urology. 2. Left pleural effusion with compressive atelectasis unclear etiology possibly secondary to underlying cardiac disease versus pneumonia. 3. Recent bacteremia continues antibiotics per infectious diseases 4. Supratherapeutic INR on admission Recommendation 1. Thoracentesis with pleural fluid studies 2. Continue urology recommendations 3. O2 as needed Discussed with patient's daughter at bedside. Problems: Consultation Date/Type/Reason Admit Date/Time May 25, 2017 at 00:06 Date of Consultation: Jun 02, 2017 Reason for Consultation Pleural effusion Hx of Present Illness Elderly [place] lady originally admitted for evaluation of leukocytosis left kidney hematoma bacteremia has had progressive dyspnea during this admission. Chest CT and x-rays of demonstrated left pleural effusion with compressive atelectasis. Patient denies any prior history of respiratory complaints no fever no chills no chest pain or palpitations until recently she has had increasing left-sided chest discomfort and increasing respiratory distress. Currently she is being worked up for left hematoma fluid around the left kidney. As above Constitutional: no complaints Eyes: no complaints ENT: no complaints Respiratory: shortness of breath (+) Cardiovascular: No chest pain Gastrointestinal: No nausea, No pain, No vomiting Genitourinary: No bleeding, No hematuria Musculoskeletal: no complaints Skin: no complaints Neurologic: No focal-weakness Endocrine: no complaints Lymphatic: no complaints Psychological: no complaints Immunologic: no complaints Past Medical History Medical History: other (Atrial fibrillation, pacemaker and mitral valve replacement) Past Surgical History Past Surgical Hx: cholecystectomy, other (Pacemaker, mitral valve replacement, splenectomy) Social History Alcohol Use: none Smoking Status: Never smoker Drug Use: none Exam/Review of Systems Vital Signs Vitals Vital Signs Date Time Temp Pulse Resp B/P Pulse Ox O2 Delivery O2 Flow Rate FiO2 06/02/17 15:36 98.5 73 18 113/59 99 06/02/17 13:31 Nasal Cannula 4.0 Intake and Output 06/01/17 06/01/17 06/02/17 14:59 22:59 06:59 Intake Total 1050 ml 280 ml Balance 1050 ml 280 ml Exam GENERAL: Elderly [place]an-speaking lady comfortable at rest no acute distress VITAL SIGNS: per chart NECK: Supple. No JVD or lymphadenopathy. CARDIAC EXAM: S1, S2. No added sounds or murmurs. CHEST: Diminished air entry left lung base. ABDOMEN: Soft, nontender. No guarding or rebound. EXTREMITIES: No cyanosis, clubbing or edema. NEUROLOGIC: Generalized weakness. No focal deficits. Results Result Diagram: 06/02/17 0533 06/02/17 0533 Results 24 hrs Laboratory Tests Test 06/01/17 23:00 06/02/17 05:33 06/02/17 13:10 06/02/17 14:55 Urine Color STANISLAW Urine Clarity CLOUDY A Urine pH 6.0 Urine Specific [place] 1.021 Urine Ketones NEGATIVE Urine Nitrite NEGATIVE Urine Bilirubin NEGATIVE Urine Urobilinogen 1+ H Urine Leukocyte Esterase NEGATIVE Urine Microscopic RBC 3 Urine Microscopic WBC 4 Urine Hemoglobin NEGATIVE Urine Glucose NEGATIVE Urine Total Protein NEGATIVE White Blood Count 22.4 H Red Blood Count 4.11 L Hemoglobin 12.2 Hematocrit 36.0 L Mean Corpuscular Volume 87.6 Mean Corpuscular Hemoglobin 29.7 Mean Corpuscular Hemoglobin Concent 33.9 Red Cell Distribution Width 14.2 Platelet Count 155 Mean Platelet Volume 12.5 H Neutrophils % 85.0 H Band Neutrophils % 1.0 Lymphocytes % 3.0 L Reactive Lymphocytes % 2.0 Monocytes % 5.0 Eosinophils % Basophils % Metamyelocytes % 1.0 H Myelocytes % 3.0 H Nucleated Red Blood Cells % Neutrophils # 19.0 H Lymphocytes # 0.7 L Monocytes # 1.1 H Eosinophils # Basophils # Metamyelocytes # 0.2 Myelocytes # 0.7 Nucleated Red Blood Cells # Differential Comment MANUAL DIFF Ovalocytes 1+ Prothrombin Time 14.9 H Prothrombin Time Ratio 1.2 INR International Normalized Ratio 1.16 Sodium Level 135 Potassium Level 3.2 L Chloride Level 90 L Carbon Dioxide Level 36 H Anion Gap 12 Blood Urea Nitrogen 22 H Creatinine 0.72 Glucose Level 96 Calcium Level 6.9 L Total Bilirubin 0.6 Direct Bilirubin 0.00 Indirect Bilirubin 0.6 Aspartate Amino Transf (AST/SGOT) 132 H Alanine Aminotransferase (ALT/SGPT) 105 H Alkaline Phosphatase 139 H B-Type Natriuretic Peptide 9700 H Total Protein 5.5 L Albumin 2.6 L Globulin 2.90 Albumin/Globulin Ratio 0.89 Vancomycin Level Trough 8.7 L Troponin I 0.020 Medications Medications Current Medications Lubiprostone (Amitiza) 24 mcg BID PO Last administered on 06/02/17 09:03; Admin Dose 24 MCG; Start 05/25/17 at 09:00 Nitroglycerin (Nitroglycerin (Sl Tab) 0.4 Mg) 0.4 tab PRN SL ; Start 05/25/17 at 06:00 Pantoprazole (Protonix Tab) 40 mg DAILY@06 PO Last administered on 06/02/17 05 :48; Admin Dose 40 MG; Start 05/26/17 at 06:00 Acetaminophen (Tylenol Tab) 650 mg Q6H PRN PO PAIN AND OR ELEVATED TEMP Last administered on 05/29/17 21:47; Admin Dose 650 MG; Start 05/25/17 at 06:30 Magnesium Oxide (Mag-Ox 400) 400 mg DAILY PO Last administered on 06/02/17 09: 03; Admin Dose 400 MG; Start 05/26/17 at 09:00 Guaifenesin/ Dextromethorphan (Robitussin Dm Liquid Cup) 5 ml Q4H PRN PO COUGH Last administered on 05/28/17 18:39; Admin Dose 5 ML; Start 05/25/17 at 15:00 Metoprolol Tartrate (Lopressor) 5 mg Q4H PRN IV HR>110 SBP>180mmhg Last administered on 06/01/17 17:11; Admin Dose 5 MG; Start 05/25/17 at 15:30 Lactobacillus Acidophilus/ Rhamnosus (Culturelle) 1 cap DAILY PO Last administered on 06/02/17 09:03; Admin Dose 1 CAP; Start 05/27/17 at 09:00 Atenolol (Tenormin) 25 mg BID PO Last administered on 05/31/17 08:30; Admin Dose 25 MG; Start 05/26/17 at 21:00; Status Future hold Polyethylene Glycol (Miralax) 8.5 gm DAILY PO Last administered on 06/02/17 09 :03; Admin Dose 8.5 GM; Start 05/29/17 at 09:00 Hydromorphone HCl 0.5 mg 0.5 mg Q6H PRN IV PAIN Last administered on 06/02/17 12:34; Admin Dose 0.5 MG; Start 05/29/17 at 01:00 Fluconazole/ Sodium Chloride 50 ml @ 50 mls/hr Q24H IVPB Last administered on 13:08; Admin Dose 50 MLS/HR; Start 05/30/17 at 12:30 Vancomycin HCl 250 ml @ 125 mls/hr Q24H IVPB Last administered on 06/02/17 14 :31; Admin Dose 125 MLS/HR; Start 05/31/17 at 14:00; Stop 06/02/17 at 18:00 Meropenem/Sodium Chloride (Merrem 1 Gm/50 ml (Pmx)) 50 ml @ 200 mls/hr Q12H IVPB Last administered on 06/02/17 02:41; Admin Dose 200 MLS/HR; Start at 03:00 Diltiazem HCl (Cardizem) 30 mg Q8 PO Last administered on 06/02/17 14:31; Admin Dose 30 MG; Start 05/31/17 at 22:00; Status Future hold Bisacodyl (Dulcolax Supp) 10 mg Q48H PRN [place] CONSTIPATION Last administered on 21:23; Admin Dose 10 MG; Start 05/31/17 at 17:00 Ergocalciferol (Drisdol) 50,000 unit Q7D PO ; Start 05/31/17 at 17:00 Fondaparinux (Arixtra) 5 mg DAILY SC Last administered on 06/02/17 09:09; Admin Dose 5 MG; Start 06/02/17 at 09:00 Warfarin Sodium (Coumadin) 3 mg DAILY@17 PO Last administered on 06/01/17 17: 10; Admin Dose 3 MG; Start 06/01/17 at 17:00 Multivitamins Therapeutic (Theragran) 1 tab DAILY PO Last administered on 09:03; Admin Dose 1 TAB; Start 06/02/17 at 09:00 Folic Acid (Folic Acid) 1 mg DAILY PO Last administered on 06/02/17 09:03; Admin Dose 1 MG; Start 06/02/17 at 09:00 Thiamine HCl (Vitamin B1) 100 mg DAILY PO Last administered on 06/02/17 09:03 ; Admin Dose 100 MG; Start 06/02/17 at 09:00 Potassium Chloride 20 meq 20 meq BID PO Last administered on 06/02/17 09:03; Admin Dose 20 MEQ; Start 06/01/17 at 21:00; Stop 06/02/17 at 21:01 Vancomycin HCl/ Sodium Chloride (Vancocin/NS) 250 ml @ 83.333 mls/ hr Q24H IVPB ; Start 06/03/17 at 11:00 JERZY HARDY MD, [facility] Jun 02, 2017 16:12
[2017-06-02] MEDS: WARFARIN 3 MG TAB PO SCH (17:25)
[2017-06-02] MEDS: FUROSEMIDE 40 MG INJ IV SCH (17:25)
--- NOTE | 2017-06-02 19:47 | PN ---
Date/Time of Note Date/Time of Note DATE: 06/02/17 TIME: 19:40 Assessment/Plan VTE Prophylaxis VTE Prophylaxis Intervention: ambulation Lines/Catheters IV [facility]from [facility] Urinary Cath still in place: No Assessment/Plan Chief Complaint/Hosp Course Patient has perinephric fluid collection which is most likely a hematoma. Will do a renal ultrasound in 2 days to check on the kidney, make sure that the perinephric hematoma has not increased in size. Problems: Assessment/Plan Left perinephric fluid collection most likely bleeding. We will monitor her H&H , transfuse her as needed, and she is going to have left thoracentesis under ultrasound guidance tomorrow Subjective 24 Hr Interval Summary Free Text/Dictation Patient does not speak [place] but her daughter is at her bedside. She denies any abdominal pain she does have however chest pain because of the pleural effusion Constitutional: no complaints Eyes: no complaints ENT: no complaints Respiratory: pain, shortness of breath Cardiovascular: no complaints Gastrointestinal: no complaints Genitourinary: other (Voiding very often,), No dysuria Musculoskeletal: no complaints Skin: no complaints Neurologic: other (No new neurological problems) Endocrine: no complaints Lymphatic: no complaints Immunologic: no complaints Exam/Review of Systems Vital Signs Vitals Vital Signs Date Time Temp Pulse Resp B/P Pulse Ox O2 Delivery O2 Flow Rate FiO2 06/02/17 19:16 94 3.0 06/02/17 19:15 101 24 Nasal Cannula 06/02/17 15:36 98.5 113/59 Intake and Output 06/01/17 06/01/17 06/02/17 15:00 23:00 07:00 Intake Total 1050 ml 280 ml Balance 1050 ml 280 ml Exam Constitutional: alert, No distress Psych: no complaints Head: normocephalic Eyes: nl conjunctiva ENMT: nl external ears & nose Neck: supple Respiratory: normal air movement Cardiovascular: No edema Gastrointestinal: non-tender, soft Genitourinary - Female: No CVA tenderness Musculoskeletal: nl extremities to inspection Extremities: normal pulses, No calf tenderness, No palpable cord Skin: nl turgor Lymph: nl lymph nodes Results Result Diagram: 06/02/17 0533 06/02/17 0533 Results 24 hrs Laboratory Tests Test 06/01/17 23:00 06/02/17 05:33 06/02/17 13:10 06/02/17 14:55 Urine Color STANISLAW Urine Clarity CLOUDY A Urine pH 6.0 Urine Specific [place] 1.021 Urine Ketones NEGATIVE Urine Nitrite NEGATIVE Urine Bilirubin NEGATIVE Urine Urobilinogen 1+ H Urine Leukocyte Esterase NEGATIVE Urine Microscopic RBC 3 Urine Microscopic WBC 4 Urine Hemoglobin NEGATIVE Urine Glucose NEGATIVE Urine Total Protein NEGATIVE White Blood Count 22.4 H Red Blood Count 4.11 L Hemoglobin 12.2 Hematocrit 36.0 L Mean Corpuscular Volume 87.6 Mean Corpuscular Hemoglobin 29.7 Mean Corpuscular Hemoglobin Concent 33.9 Red Cell Distribution Width 14.2 Platelet Count 155 Mean Platelet Volume 12.5 H Neutrophils % 85.0 H Band Neutrophils % 1.0 Lymphocytes % 3.0 L Reactive Lymphocytes % 2.0 Monocytes % 5.0 Eosinophils % Basophils % Metamyelocytes % 1.0 H Myelocytes % 3.0 H Nucleated Red Blood Cells % Neutrophils # 19.0 H Lymphocytes # 0.7 L Monocytes # 1.1 H Eosinophils # Basophils # Metamyelocytes # 0.2 Myelocytes # 0.7 Nucleated Red Blood Cells # Differential Comment MANUAL DIFF Ovalocytes 1+ Prothrombin Time 14.9 H Prothrombin Time Ratio 1.2 INR International Normalized Ratio 1.16 Sodium Level 135 Potassium Level 3.2 L Chloride Level 90 L Carbon Dioxide Level 36 H Anion Gap 12 Blood Urea Nitrogen 22 H Creatinine 0.72 Glucose Level 96 Calcium Level 6.9 L Total Bilirubin 0.6 Direct Bilirubin 0.00 Indirect Bilirubin 0.6 Aspartate Amino Transf (AST/SGOT) 132 H Alanine Aminotransferase (ALT/SGPT) 105 H Alkaline Phosphatase 139 H B-Type Natriuretic Peptide 9700 H Total Protein 5.5 L Albumin 2.6 L Globulin 2.90 Albumin/Globulin Ratio 0.89 Vancomycin Level Trough 8.7 L Troponin I 0.020 Medications Medications Current Medications Lubiprostone (Amitiza) 24 mcg BID PO Last administered on 06/02/17 09:03; Admin Dose 24 MCG; Start 05/25/17 at 09:00 Nitroglycerin (Nitroglycerin (Sl Tab) 0.4 Mg) 0.4 tab PRN SL ; Start 05/25/17 at 06:00 Pantoprazole (Protonix Tab) 40 mg DAILY@06 PO Last administered on 06/02/17 05 :48; Admin Dose 40 MG; Start 05/26/17 at 06:00 Acetaminophen (Tylenol Tab) 650 mg Q6H PRN PO PAIN AND OR ELEVATED TEMP Last administered on 05/29/17 21:47; Admin Dose 650 MG; Start 05/25/17 at 06:30 Magnesium Oxide (Mag-Ox 400) 400 mg DAILY PO Last administered on 06/02/17 09: 03; Admin Dose 400 MG; Start 05/26/17 at 09:00 Guaifenesin/ Dextromethorphan (Robitussin Dm Liquid Cup) 5 ml Q4H PRN PO COUGH Last administered on 05/28/17 18:39; Admin Dose 5 ML; Start 05/25/17 at 15:00 Metoprolol Tartrate (Lopressor) 5 mg Q4H PRN IV HR>110 SBP>180mmhg Last administered on 06/01/17 17:11; Admin Dose 5 MG; Start 05/25/17 at 15:30 Lactobacillus Acidophilus/ Rhamnosus (Culturelle) 1 cap DAILY PO Last administered on 06/02/17 09:03; Admin Dose 1 CAP; Start 05/27/17 at 09:00 Atenolol (Tenormin) 25 mg BID PO Last administered on 05/31/17 08:30; Admin Dose 25 MG; Start 05/26/17 at 21:00; Status Future hold Polyethylene Glycol (Miralax) 8.5 gm DAILY PO Last administered on 06/02/17 09 :03; Admin Dose 8.5 GM; Start 05/29/17 at 09:00 Hydromorphone HCl 0.5 mg 0.5 mg Q6H PRN IV PAIN Last administered on 06/02/17 12:34; Admin Dose 0.5 MG; Start 05/29/17 at 01:00 Fluconazole/ Sodium Chloride 50 ml @ 50 mls/hr Q24H IVPB Last administered on 13:08; Admin Dose 50 MLS/HR; Start 05/30/17 at 12:30 Meropenem/Sodium Chloride (Merrem 1 Gm/50 ml (Pmx)) 50 ml @ 200 mls/hr Q12H IVPB Last administered on 06/02/17 16:42; Admin Dose 200 MLS/HR; Start at 03:00 Diltiazem HCl (Cardizem) 30 mg Q8 PO Last administered on 06/02/17 14:31; Admin Dose 30 MG; Start 05/31/17 at 22:00; Status Future hold Bisacodyl (Dulcolax Supp) 10 mg Q48H PRN [place] CONSTIPATION Last administered on 21:23; Admin Dose 10 MG; Start 05/31/17 at 17:00 Ergocalciferol (Drisdol) 50,000 unit Q7D PO ; Start 05/31/17 at 17:00 Fondaparinux (Arixtra) 5 mg DAILY SC Last administered on 06/02/17 09:09; Admin Dose 5 MG; Start 06/02/17 at 09:00 Warfarin Sodium (Coumadin) 3 mg DAILY@17 PO Last administered on 06/02/17 17: 25; Admin Dose 3 MG; Start 06/01/17 at 17:00 Multivitamins Therapeutic (Theragran) 1 tab DAILY PO Last administered on 09:03; Admin Dose 1 TAB; Start 06/02/17 at 09:00 Folic Acid (Folic Acid) 1 mg DAILY PO Last administered on 06/02/17 09:03; Admin Dose 1 MG; Start 06/02/17 at 09:00 Thiamine HCl (Vitamin B1) 100 mg DAILY PO Last administered on 06/02/17 09:03 ; Admin Dose 100 MG; Start 06/02/17 at 09:00 Potassium Chloride 20 meq 20 meq BID PO Last administered on 06/02/17 09:03; Admin Dose 20 MEQ; Start 06/01/17 at 21:00; Stop 06/02/17 at 21:01 Vancomycin HCl/ Sodium Chloride (Vancocin/NS) 250 ml @ 83.333 mls/ hr Q24H IVPB ; Start 06/03/17 at 11:00 Procedures Procedures Patient going to have left thoracentesis under ultrasound guidance tomorrow ANA WILKINSON MD Jun 02, 2017 19:47
[2017-06-02] MEDS: ATENOLOL 25 MG TAB PO SCH (21:00)
--- NOTE | 2017-06-02 21:29 | PN ---
Date/Time of Note Date/Time of Note DATE: 06/02/17 TIME: 21:28 Assessment/Plan VTE Prophylaxis VTE Prophylaxis Intervention: other Lines/Catheters IV [facility]ter Type [facility]from [facility]): Saline Lock Urinary Cath still in place: No Assessment/Plan Chief Complaint/Hosp Course SEPSIS AFIB HTN ASHD hyponatremia PEURAL EFFUSION UTI LOW EF vicki platelet better PLAN LASIX ANTIBIOTIC antibiotic BUMEX THORACENTESIS Problems: Subjective 24 Hr Interval Summary Respiratory: shortness of breath (+) Exam/Review of Systems Vital Signs Vitals Vital Signs Date Time Temp Pulse Resp B/P Pulse Ox O2 Delivery O2 Flow Rate FiO2 06/02/17 20:40 114 06/02/17 20:00 98.2 20 105/66 97 06/02/17 19:16 3.0 06/02/17 19:15 Nasal Cannula Intake and Output 06/01/17 06/01/17 06/02/17 15:00 23:00 07:00 Intake Total 1050 ml 280 ml Balance 1050 ml 280 ml Exam Neck: supple Respiratory: diminished breath sounds Cardiovascular: regular rate and rhythm Gastrointestinal: bowel sounds (+), soft Results Result Diagram: 06/02/17 0533 06/02/17 0533 Results 24 hrs Laboratory Tests Test 06/01/17 23:00 06/02/17 05:33 06/02/17 13:10 06/02/17 14:55 Urine Color ST[place]LAW Urine Clarity CLOUDY A Urine pH 6.0 Urine Specific [place] 1.021 Urine Ketones NEGATIVE Urine Nitrite NEGATIVE Urine Bilirubin NEGATIVE Urine Urobilinogen 1+ H Urine Leukocyte Esterase NEGATIVE Urine Microscopic RBC 3 Urine Microscopic WBC 4 Urine Hemoglobin NEGATIVE Urine Glucose NEGATIVE Urine Total Protein NEGATIVE White Blood Count 22.4 H Red Blood Count 4.11 L Hemoglobin 12.2 Hematocrit 36.0 L Mean Corpuscular Volume 87.6 Mean Corpuscular Hemoglobin 29.7 Mean Corpuscular Hemoglobin Concent 33.9 Red Cell Distribution Width 14.2 Platelet Count 155 Mean Platelet Volume 12.5 H Neutrophils % 85.0 H Band Neutrophils % 1.0 Lymphocytes % 3.0 L Reactive Lymphocytes % 2.0 Monocytes % 5.0 Eosinophils % Basophils % Metamyelocytes % 1.0 H Myelocytes % 3.0 H Nucleated Red Blood Cells % Neutrophils # 19.0 H Lymphocytes # 0.7 L Monocytes # 1.1 H Eosinophils # Basophils # Metamyelocytes # 0.2 Myelocytes # 0.7 Nucleated Red Blood Cells # Differential Comment MANUAL DIFF Ovalocytes 1+ Prothrombin Time 14.9 H Prothrombin Time Ratio 1.2 INR International Normalized Ratio 1.16 Sodium Level 135 Potassium Level 3.2 L Chloride Level 90 L Carbon Dioxide Level 36 H Anion Gap 12 Blood Urea Nitrogen 22 H Creatinine 0.72 Glucose Level 96 Calcium Level 6.9 L Total Bilirubin 0.6 Direct Bilirubin 0.00 Indirect Bilirubin 0.6 Aspartate Amino Transf (AST/SGOT) 132 H Alanine Aminotransferase (ALT/SGPT) 105 H Alkaline Phosphatase 139 H B-Type Natriuretic Peptide 9700 H Total Protein 5.5 L Albumin 2.6 L Globulin 2.90 Albumin/Globulin Ratio 0.89 Vancomycin Level Trough 8.7 L Troponin I 0.020 Medications Medications Current Medications Lubiprostone (Amitiza) 24 mcg BID PO Last administered on 06/02/17 09:03; Admin Dose 24 MCG; Start 05/25/17 at 09:00 Nitroglycerin (Nitroglycerin (Sl Tab) 0.4 Mg) 0.4 tab PRN SL ; Start 05/25/17 at 06:00 Pantoprazole (Protonix Tab) 40 mg DAILY@06 PO Last administered on 06/02/17 05 :48; Admin Dose 40 MG; Start 05/26/17 at 06:00 Acetaminophen (Tylenol Tab) 650 mg Q6H PRN PO PAIN AND OR ELEVATED TEMP Last administered on 05/29/17 21:47; Admin Dose 650 MG; Start 05/25/17 at 06:30 Magnesium Oxide (Mag-Ox 400) 400 mg DAILY PO Last administered on 06/02/17 09: 03; Admin Dose 400 MG; Start 05/26/17 at 09:00 Guaifenesin/ Dextromethorphan (Robitussin Dm Liquid Cup) 5 ml Q4H PRN PO COUGH Last administered on 05/28/17 18:39; Admin Dose 5 ML; Start 05/25/17 at 15:00 Metoprolol Tartrate (Lopressor) 5 mg Q4H PRN IV HR>110 SBP>180mmhg Last administered on 06/01/17 17:11; Admin Dose 5 MG; Start 05/25/17 at 15:30 Lactobacillus Acidophilus/ Rhamnosus (Culturelle) 1 cap DAILY PO Last administered on 06/02/17 09:03; Admin Dose 1 CAP; Start 05/27/17 at 09:00 Atenolol (Tenormin) 25 mg BID PO Last administered on 05/31/17 08:30; Admin Dose 25 MG; Start 05/26/17 at 21:00; Status Future hold Polyethylene Glycol (Miralax) 8.5 gm DAILY PO Last administered on 06/02/17 09 :03; Admin Dose 8.5 GM; Start 05/29/17 at 09:00 Hydromorphone HCl 0.5 mg 0.5 mg Q6H PRN IV PAIN Last administered on 06/02/17 12:34; Admin Dose 0.5 MG; Start 05/29/17 at 01:00 Fluconazole/ Sodium Chloride 50 ml @ 50 mls/hr Q24H IVPB Last administered on 13:08; Admin Dose 50 MLS/HR; Start 05/30/17 at 12:30 Meropenem/Sodium Chloride (Merrem 1 Gm/50 ml (Pmx)) 50 ml @ 200 mls/hr Q12H IVPB Last administered on 06/02/17 16:42; Admin Dose 200 MLS/HR; Start at 03:00 Diltiazem HCl (Cardizem) 30 mg Q8 PO Last administered on 06/02/17 14:31; Admin Dose 30 MG; Start 05/31/17 at 22:00; Status Future hold Bisacodyl (Dulcolax Supp) 10 mg Q48H PRN [place] CONSTIPATION Last administered on 21:23; Admin Dose 10 MG; Start 05/31/17 at 17:00 Ergocalciferol (Drisdol) 50,000 unit Q7D PO ; Start 05/31/17 at 17:00 Fondaparinux (Arixtra) 5 mg DAILY SC Last administered on 06/02/17 09:09; Admin Dose 5 MG; Start 06/02/17 at 09:00 Warfarin Sodium (Coumadin) 3 mg DAILY@17 PO Last administered on 06/02/17 17: 25; Admin Dose 3 MG; Start 06/01/17 at 17:00 Multivitamins Therapeutic (Theragran) 1 tab DAILY PO Last administered on 09:03; Admin Dose 1 TAB; Start 06/02/17 at 09:00 Folic Acid (Folic Acid) 1 mg DAILY PO Last administered on 06/02/17 09:03; Admin Dose 1 MG; Start 06/02/17 at 09:00 Thiamine HCl 100 mg 100 mg DAILY PO Last administered on 06/02/17 09:03; Admin Dose 100 MG; Start 06/02/17 at 09:00 Vancomycin HCl/ Sodium Chloride (Vancocin/NS) 250 ml @ 83.333 mls/ hr Q24H IVPB ; Start 06/03/17 at 11:00 DUANE NGUYỄN MD Jun 02, 2017 21:29
[2017-06-03] VITALS (14 sets, daily range): BP systolic 99–124; BP diastolic 50–76; PULSE 79–165; RESP 16–20
[2017-06-03] MEDS: MEROPENEM 1 GM/50ML(PMX) 50 ML IVPB SCH ×2 (03:43→17:32)
[2017-06-03] MEDS: DILTIAZEM 30 MG TAB PO SCH ×3 (05:24→21:41)
[2017-06-03] MEDS: PANTOPRAZOLE (EC) 40 MG TAB PO SCH (05:24)
[2017-06-03] MEDS: FUROSEMIDE 40 MG INJ IV SCH ×2 (05:24→17:32)
[2017-06-03 07:54] LABS: ADD SCAN DIFF NO
[2017-06-03 07:56] LABS: ABNORMAL IP MESSAGE 1; BASOPHIL # 0.1 10^3/ul (0.0-0.1); BASOPHILS % 0.3 % (0.0-2.0); EOSINOPHILS # 0.1 10^3/ul (0.0-0.5); EOSINOPHILS % 0.7 % (0.0-7.0); HEMATOCRIT 34.6 % (37.0-47.0); HEMOGLOBIN 11.5 g/dl (12.0-16.0); LYMPHOCYTES # 0.7 10^3/ul (0.8-2.9); LYMPHOCYTES % 3.5 % (15.0-51.0); MEAN CORPUSCULAR HEMOGLOBIN 29.2 pg (29.0-33.0); MEAN CORPUSCULAR HGB CONC 33.2 g/dl (32.0-37.0); MEAN CORPUSCULAR VOLUME 87.8 fl (82.0-101.0); MEAN PLATELET VOLUME 12.2 fl (7.4-10.4); MONOCYTE # 1.2 10^3/ul (0.3-0.9); MONOCYTES % 5.6 % (0.0-11.0); NEUTROPHIL # 16.8 10^3/ul (1.6-7.5); PLATELET COUNT 147 10^3/UL (140-415); RED BLOOD COUNT 3.94 10^6/ul (4.20-5.40); RED CELL DISTRIBUTION WIDTH 14.4 % (11.5-14.5); WHITE BLOOD COUNT 20.5 10^3/ul (4.8-10.8)
[2017-06-03 08:15] LABS: ALBUMIN 2.2 g/dl (3.3-4.9); ALBUMIN/GLOBULIN RATIO 0.68; BILIRUBIN,INDIRECT 0.5 mg/dl (0-1.1); BILIRUBIN,TOTAL 0.5 mg/dl (0.2-1.3); CALCIUM 6.6 mg/dl (8.4-10.2); CREATININE 0.85 mg/dl (0.44-1.00); POTASSIUM 3.4 mmol/L (3.5-5.1); TOTAL PROTEIN 5.4 g/dl (6.1-8.1)
[2017-06-03 08:16] LABS: INR 1.32; PROTIME 16.5 Sec (12.2-14.2); PT RATIO 1.3
[2017-06-03] MEDS: MAGNESIUM OXIDE 400 MG TAB PO SCH (08:54)
[2017-06-03] MEDS: LEVOTHYROXINE 75 MCG TAB PO SCH (08:54)
[2017-06-03] MEDS: THIAMINE 100 MG TAB PO SCH (08:54)
[2017-06-03] MEDS: POLYETHYLENE GLYCOL 17 GM PACKET PO SCH (08:54)
[2017-06-03] MEDS: LACTOBACILLUS RHAMNOSUS CAP PO SCH (08:55)
[2017-06-03] MEDS: POTASSIUM CHLORIDE (SR) 20 MEQ TAB PO SCH (08:55)
[2017-06-03] MEDS: FOLIC ACID 1 MG TAB PO SCH (08:55)
[2017-06-03] MEDS: MULTIVITAMINS THERAPEUTIC TAB PO SCH (08:55)
[2017-06-03] MEDS: ATENOLOL 25 MG TAB PO SCH ×2 (08:55→21:00)
[2017-06-03] MEDS: LUBIPROSTONE 24 MCG CAP PO SCH ×2 (08:55→21:41)
[2017-06-03] MEDS: FONDAPARINUX 2.5 MG SYG SC SCH (09:07)
--- NOTE | 2017-06-03 09:47 | CONS ---
Date/Time of Note Date/Time of Note DATE: 06/03/17 TIME: 09:45 Assessment/Plan Assessment/Plan Chief Complaint/Hosp Course 76 yo female on Coumadin admitted for TIA, who was found to have partial thrombosis of internal jugular vein. # Thrombosis while on Coumadin - Given that patient has a prosthetic mitral valve, her anticoagulation options are limited to coumadin but this was on hold because of supratherapeutic INR. Especially since this (IJ clot) is a relatively asymptomatic partial thrombosis, I do not think we need to change anticoagulation at this time. - I would recommend to keep the INR between 2.5-3.5. Given INR is >4 and urology concern for perinephric bleed., patient given one time dose of vit K low dose on 05/31/17. Now INR subtherapeutic at 1.32, patient restarted on 3 mg coumadin 06/01, continue 3 mg dose as patient supratherapeutic on 4 mg dose and takes 3-5 days to see effect of coumadin - patient on fondaparinux while INR subtherapeutic, will increase to 7.5 mg given weight > 50 kg, for a minimum of 5 days and until INR therapeutic for [address] Hughes, hold anticoagulation tomorrow a.m. for thoracentesis. Pending repeat US to eval hematoma per Dr. Andrews. hgb is fairly stable and will follow # UTI -continue antibiotics #Ischemic Cardiomyopathy -management per cardiology Problems: Consultation Date/Type/Reason Admit Date/Time May 25, 2017 at 00:06 Initial Consult Date 05/30/17 Type of Consultation: Hematology Referring Provider: DUANE NGUYỄN MD 24 HR Interval Summary Free Text/Dictation The patient appears comfortable today, no complaints. Pending thoracentesis tomorrow. Exam/Review of Systems Vital Signs Vitals Vital Signs Date Time Temp Pulse Resp B/P Pulse Ox O2 Delivery O2 Flow Rate FiO2 06/03/17 09:13 165 06/03/17 07:31 99.5 16 99/56 95 06/02/17 20:00 Nasal Cannula 3.0 Intake and Output 06/02/17 06/02/17 06/03/17 15:00 23:00 07:00 Intake Total 50 ml 600 ml 290 ml Balance 50 ml 600 ml 290 ml Exam Constitutional: alert, oriented Psych: nl mood/affect Eyes: nl conjunctiva Neck: supple Respiratory: normal air movement Results Result Diagram: 06/03/17 0743 06/03/17 0743 Results 24 hrs Laboratory Tests Test 06/02/17 13:10 06/02/17 14:55 06/03/17 07:43 06/03/17 07:45 Vancomycin Level Trough 8.7 L Troponin I 0.020 White Blood Count 20.5 H Red Blood Count 3.94 L Hemoglobin 11.5 L Hematocrit 34.6 L Mean Corpuscular Volume 87.8 Mean Corpuscular Hemoglobin 29.2 Mean Corpuscular Hemoglobin Concent 33.2 Red Cell Distribution Width 14.4 Platelet Count 147 Mean Platelet Volume 12.2 H Neutrophils % 82.0 H Lymphocytes % 3.5 L Monocytes % 5.6 Eosinophils % 0.7 Basophils % 0.3 Nucleated Red Blood Cells % 0.0 Neutrophils # 16.8 H Lymphocytes # 0.7 L Monocytes # 1.2 H Eosinophils # 0.1 Basophils # 0.1 Nucleated Red Blood Cells # 0.0 Sodium Level 135 Potassium Level 3.4 L Chloride Level 88 L Carbon Dioxide Level 41 *H Anion Gap 9 Blood Urea Nitrogen 25 H Creatinine 0.85 Glucose Level 84 Calcium Level 6.6 L Total Bilirubin 0.5 Direct Bilirubin 0.00 Indirect Bilirubin 0.5 Aspartate Amino Transf (AST/SGOT) 187 H Alanine Aminotransferase (ALT/SGPT) 138 H Alkaline Phosphatase 132 H Total Protein 5.4 L Albumin 2.2 L Globulin 3.20 Albumin/Globulin Ratio 0.68 Prothrombin Time 16.5 H Prothrombin Time Ratio 1.3 INR International Normalized Ratio 1.32 Medications Medications Current Medications Lubiprostone (Amitiza) 24 mcg BID PO Last administered on 06/03/17 08:55; Admin Dose 24 MCG; Start 05/25/17 at 09:00 Nitroglycerin (Nitroglycerin (Sl Tab) 0.4 Mg) 0.4 tab PRN SL ; Start 05/25/17 at 06:00 Pantoprazole (Protonix Tab) 40 mg DAILY@06 PO Last administered on 06/03/17 05 :24; Admin Dose 40 MG; Start 05/26/17 at 06:00 Acetaminophen (Tylenol Tab) 650 mg Q6H PRN PO PAIN AND OR ELEVATED TEMP Last administered on 05/29/17 21:47; Admin Dose 650 MG; Start 05/25/17 at 06:30 Magnesium Oxide (Mag-Ox 400) 400 mg DAILY PO Last administered on 06/03/17 08: 54; Admin Dose 400 MG; Start 05/26/17 at 09:00 Guaifenesin/ Dextromethorphan (Robitussin Dm Liquid Cup) 5 ml Q4H PRN PO COUGH Last administered on 05/28/17 18:39; Admin Dose 5 ML; Start 05/25/17 at 15:00 Metoprolol Tartrate (Lopressor) 5 mg Q4H PRN IV HR>110 SBP>180mmhg Last administered on 06/01/17 17:11; Admin Dose 5 MG; Start 05/25/17 at 15:30 Lactobacillus Acidophilus/ Rhamnosus (Culturelle) 1 cap DAILY PO Last administered on 06/03/17 08:55; Admin Dose 1 CAP; Start 05/27/17 at 09:00 Atenolol (Tenormin) 25 mg BID PO Last administered on 05/31/17 08:30; Admin Dose 25 MG; Start 05/26/17 at 21:00; Status Future hold Polyethylene Glycol (Miralax) 8.5 gm DAILY PO Last administered on 06/03/17 08 :54; Admin Dose 8.5 GM; Start 05/29/17 at 09:00 Hydromorphone HCl 0.5 mg 0.5 mg Q6H PRN IV PAIN Last administered on 06/02/17 21:32; Admin Dose 0.5 MG; Start 05/29/17 at 01:00 Fluconazole/ Sodium Chloride 50 ml @ 50 mls/hr Q24H IVPB Last administered on 13:08; Admin Dose 50 MLS/HR; Start 05/30/17 at 12:30 Meropenem/Sodium Chloride (Merrem 1 Gm/50 ml (Pmx)) 50 ml @ 200 mls/hr Q12H IVPB Last administered on 06/03/17 03:43; Admin Dose 200 MLS/HR; Start at 03:00 Diltiazem HCl (Cardizem) 30 mg Q8 PO Last administered on 06/03/17 05:24; Admin Dose 30 MG; Start 05/31/17 at 22:00; Status Future hold Bisacodyl (Dulcolax Supp) 10 mg Q48H PRN [place] CONSTIPATION Last administered on 21:23; Admin Dose 10 MG; Start 05/31/17 at 17:00 Ergocalciferol (Drisdol) 50,000 unit Q7D PO ; Start 05/31/17 at 17:00 Fondaparinux (Arixtra) 5 mg DAILY SC Last administered on 06/03/17 09:07; Admin Dose 5 MG; Start 06/02/17 at 09:00 Warfarin Sodium (Coumadin) 3 mg DAILY@17 PO Last administered on 06/02/17 17: 25; Admin Dose 3 MG; Start 06/01/17 at 17:00 Multivitamins Therapeutic (Theragran) 1 tab DAILY PO Last administered on 08:55; Admin Dose 1 TAB; Start 06/02/17 at 09:00 Folic Acid (Folic Acid) 1 mg DAILY PO Last administered on 06/03/17 08:55; Admin Dose 1 MG; Start 06/02/17 at 09:00 Thiamine HCl 100 mg 100 mg DAILY PO Last administered on 06/03/17 08:54; Admin Dose 100 MG; Start 06/02/17 at 09:00 Vancomycin HCl/ Sodium Chloride (Vancocin/NS) 250 ml @ 83.333 mls/ hr Q24H IVPB ; Start 06/03/17 at 11:00 Potassium Chloride (Klor-Con 20) 20 meq DAILY PO Last administered on 08:55; Admin Dose 20 MEQ; Start 06/03/17 at 09:00 DEONTE MIRANDA MD Jun 03, 2017 09:46
[2017-06-03] MEDS ORDERED: DIGOXIN 500 MCG INJ IV ONE (11:00)
[2017-06-03 11:04] LABS: INR 6.02
--- NOTE | 2017-06-03 11:29 | CONS ---
Date/Time of Note Date/Time of Note DATE: 06/03/17 TIME: 11:27 Consult Date/Type/Reason Admit Date/Time May 25, 2017 at 00:06 Initial Consult Date 06/02/17 Type of Consultation: Pulmonary Ordering Provider: DUANE NGUYỄN MD Subjective Patient appears more comfortable this morning less shortness of breath. Objective Vital Signs Date Time Temp Pulse Resp B/P Pulse Ox O2 Delivery O2 Flow Rate FiO2 06/03/17 09:13 165 06/03/17 07:31 99.5 16 99/56 95 06/02/17 20:00 Nasal Cannula 3.0 Intake and Output 06/02/17 06/02/17 06/03/17 15:00 23:00 07:00 Intake Total 50 ml 600 ml 290 ml Balance 50 ml 600 ml 290 ml Exam GENERAL: Elderly Georgian-speaking lady comfortable at rest no acute distress VITAL SIGNS: per chart NECK: Supple. No JVD or lymphadenopathy. CARDIAC EXAM: S1, S2. No added sounds or murmurs. CHEST: Diminished air entry left lung base. ABDOMEN: Soft, nontender. No guarding or rebound. EXTREMITIES: No cyanosis, clubbing or edema. NEUROLOGIC: Generalized weakness. No focal deficits. Results/Medications Result Diagram: 06/03/17 0743 06/03/17 0743 Results 24 hrs Laboratory Tests Test 06/02/17 13:10 06/02/17 14:55 06/03/17 07:43 06/03/17 07:45 Vancomycin Level Trough 8.7 L Troponin I 0.020 White Blood Count 20.5 H Red Blood Count 3.94 L Hemoglobin 11.5 L Hematocrit 34.6 L Mean Corpuscular Volume 87.8 Mean Corpuscular Hemoglobin 29.2 Mean Corpuscular Hemoglobin Concent 33.2 Red Cell Distribution Width 14.4 Platelet Count 147 Mean Platelet Volume 12.2 H Neutrophils % 82.0 H Lymphocytes % 3.5 L Monocytes % 5.6 Eosinophils % 0.7 Basophils % 0.3 Nucleated Red Blood Cells % 0.0 Neutrophils # 16.8 H Lymphocytes # 0.7 L Monocytes # 1.2 H Eosinophils # 0.1 Basophils # 0.1 Nucleated Red Blood Cells # 0.0 Sodium Level 135 Potassium Level 3.4 L Chloride Level 88 L Carbon Dioxide Level 41 *H Anion Gap 9 Blood Urea Nitrogen 25 H Creatinine 0.85 Glucose Level 84 Calcium Level 6.6 L Total Bilirubin 0.5 Direct Bilirubin 0.00 Indirect Bilirubin 0.5 Aspartate Amino Transf (AST/SGOT) 187 H Alanine Aminotransferase (ALT/SGPT) 138 H Alkaline Phosphatase 132 H Total Protein 5.4 L Albumin 2.2 L Globulin 3.20 Albumin/Globulin Ratio 0.68 Prothrombin Time 16.5 H Prothrombin Time Ratio 1.3 INR International Normalized Ratio 1.32 Medications Current Medications Lubiprostone (Amitiza) 24 mcg BID PO Last administered on 06/03/17 08:55; Admin Dose 24 MCG; Start 05/25/17 at 09:00 Nitroglycerin (Nitroglycerin (Sl Tab) 0.4 Mg) 0.4 tab PRN SL ; Start 05/25/17 at 06:00 Pantoprazole (Protonix Tab) 40 mg DAILY@06 PO Last administered on 06/03/17 05 :24; Admin Dose 40 MG; Start 05/26/17 at 06:00 Acetaminophen (Tylenol Tab) 650 mg Q6H PRN PO PAIN AND OR ELEVATED TEMP Last administered on 05/29/17 21:47; Admin Dose 650 MG; Start 05/25/17 at 06:30 Magnesium Oxide (Mag-Ox 400) 400 mg DAILY PO Last administered on 06/03/17 08: 54; Admin Dose 400 MG; Start 05/26/17 at 09:00 Guaifenesin/ Dextromethorphan (Robitussin Dm Liquid Cup) 5 ml Q4H PRN PO COUGH Last administered on 05/28/17 18:39; Admin Dose 5 ML; Start 05/25/17 at 15:00 Metoprolol Tartrate (Lopressor) 5 mg Q4H PRN IV HR>110 SBP>180mmhg Last administered on 06/01/17 17:11; Admin Dose 5 MG; Start 05/25/17 at 15:30 Lactobacillus Acidophilus/ Rhamnosus (Culturelle) 1 cap DAILY PO Last administered on 06/03/17 08:55; Admin Dose 1 CAP; Start 05/27/17 at 09:00 Atenolol (Tenormin) 25 mg BID PO Last administered on 05/31/17 08:30; Admin Dose 25 MG; Start 05/26/17 at 21:00; Status Future hold Polyethylene Glycol (Miralax) 8.5 gm DAILY PO Last administered on 06/03/17 08 :54; Admin Dose 8.5 GM; Start 05/29/17 at 09:00 Hydromorphone HCl 0.5 mg 0.5 mg Q6H PRN IV PAIN Last administered on 06/02/17 21:32; Admin Dose 0.5 MG; Start 05/29/17 at 01:00 Fluconazole/ Sodium Chloride 50 ml @ 50 mls/hr Q24H IVPB Last administered on 13:08; Admin Dose 50 MLS/HR; Start 05/30/17 at 12:30 Meropenem/Sodium Chloride (Merrem 1 Gm/50 ml (Pmx)) 50 ml @ 200 mls/hr Q12H IVPB Last administered on 06/03/17 03:43; Admin Dose 200 MLS/HR; Start at 03:00 Diltiazem HCl (Cardizem) 30 mg Q8 PO Last administered on 06/03/17 05:24; Admin Dose 30 MG; Start 05/31/17 at 22:00; Status Future hold Bisacodyl (Dulcolax Supp) 10 mg Q48H PRN [place] CONSTIPATION Last administered on 21:23; Admin Dose 10 MG; Start 05/31/17 at 17:00 Ergocalciferol (Drisdol) 50,000 unit Q7D PO ; Start 05/31/17 at 17:00 Warfarin Sodium (Coumadin) 3 mg DAILY@17 PO Last administered on 06/02/17 17: 25; Admin Dose 3 MG; Start 06/01/17 at 17:00; Status Future Hold Multivitamins Therapeutic (Theragran) 1 tab DAILY PO Last administered on 08:55; Admin Dose 1 TAB; Start 06/02/17 at 09:00 Folic Acid (Folic Acid) 1 mg DAILY PO Last administered on 06/03/17 08:55; Admin Dose 1 MG; Start 06/02/17 at 09:00 Thiamine HCl 100 mg 100 mg DAILY PO Last administered on 06/03/17 08:54; Admin Dose 100 MG; Start 06/02/17 at 09:00 Vancomycin HCl/ Sodium Chloride (Vancocin/NS) 250 ml @ 83.333 mls/ hr Q24H IVPB ; Start 06/03/17 at 11:00 Potassium Chloride (Klor-Con 20) 20 meq DAILY PO Last administered on t 08:55; Admin Dose 20 MEQ; Start 06/03/17 at 09:00 Fondaparinux (Arixtra) 7.5 mg DAILY SC ; Start 06/05/17 at 09:00 Assessment/Plan Chief Complaint/Hosp Course Assessment 1. Left renal hematoma surrounding effusion and ascites. Currently being evaluated by urology. 2. Left pleural effusion with compressive atelectasis unclear etiology possibly secondary to underlying cardiac disease versus pneumonia. 3. Recent bacteremia continues antibiotics per infectious diseases 4. Supratherapeutic INR on admission 5. Evidence of contraction alkalosis. Recommendation 1. Thoracentesis with pleural fluid studies on hold today as patient was given anticoagulation this morning. Hold all anticoagulation for thoracentesis tomorrow. 2. Continue urology recommendations 3. O2 as needed Discussed with patient's daughter at bedside. Problems: JERZY HARDY MD, [facility] Jun 03, 2017 11:28
[2017-06-03] MEDS: VANCOMYCIN 1.25 GM in SOD CHLORIDE 0.9% 250 ML IVPB SCH (11:50)
--- NOTE | 2017-06-03 12:45 | RADRPT ---
PROCEDURE: XR Chest. CLINICAL INDICATION: Shortness of breath. TECHNIQUE: Single frontal view. COMPARISON: 06/02/2017 FINDINGS: There is mild right basilar atelectasis and moderate left basilar atelectasis or pneumonia, unchange d. The lungs are otherwise clear. The heart is enlarged. 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 Sternal wires and mitral valve replacement are noted. The heart is enlarged. There is calcification in the aorta con sistent with atherosclerosis. There are sternal wires. There is a small right pleural effusion and moderate left pleural effusion. There is no pneumothorax. IMPRESSION: 1. No significant change from 06/02/2017. RPTAT: QQ .Isiah Lamar MD, MD Date Time Electronically viewed and signed by .Isiah Lamar MD, on 06/03/2017 12:44 .R/
--- NOTE | 2017-06-03 14:32 | CONS ---
Date/Time of Note Date/Time of Note DATE: 06/03/17 TIME: 14:27 Assessment/Plan Assessment/Plan Chief Complaint/Hosp Course IMP: 1.tachycardia-? S Tach/PAF-overall improved when recieves BB/CCB regimen [facility] [place] device 2.Hypotension-improved/stable/tolerating medications 3.AF-some RVR as dilt/atenolol held 4.Fevers/leukcytosis-increased significantly 5. TIA 6.UTI 7. coagulopathy-s/p Vitamin k and now subtherapeutic 8. L sided rib pain-positive TTP/resolved-negative troponin 9. 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 Hypontremia 14. 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 Currently stable 15. CHF-systolic acute on chronic LVEF 40% by echo this admit 16. 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 Problems: Consultation Date/Type/Reason Admit Date/Time May 25, 2017 at 00:06 Initial Consult Date 05/25/17 Type of Consultation: cardiology Reason for Consultation tachycardia Referring Provider: DUANE NGUYỄN MD Exam/Review of Systems Vital Signs Vitals Vital Signs Date Time Temp Pulse Resp B/P Pulse Ox O2 Delivery O2 Flow Rate FiO2 06/03/17 12:10 85 06/03/17 11:56 98.9 17 110/62 94 06/03/17 08:20 Nasal Cannula 3.0 Intake and Output 06/02/17 06/02/17 06/03/17 15:00 23:00 07:00 Intake Total 50 ml 600 ml 290 ml Balance 50 ml 600 ml 290 ml Exam Review of Systems: CONSTITUTIONAL: No fevers, chills. PULMONARY: No sob CARDIOVASCULAR: No chest pain/palpitations GASTROINTESTINAL: No nausea/vomiting. GENITOURINARY: No hematuria/dysuria. MUSCULOSKELETAL: No myagias/arthalgias. PSYCHIATRIC: The patient denies depression. NEUROLOGIC: No weakness Constitutional: alert, oriented Psych: no complaints Head: normocephalic ENMT: mucosa pink and moist Neck: jvd (9 cm water), supple Respiratory: diminished breath sounds (at bases/B) Cardiovascular: irregular rhythm Gastrointestinal: non-tender, soft Musculoskeletal: muscle weakness (generalized) Extremities: edema (none) Neurological: lethargic Results Result Diagram: 06/03/17 0743 06/03/17 0743 Results 24 hrs Laboratory Tests Test 06/02/17 14:55 06/03/17 07:43 06/03/17 07:45 Troponin I 0.020 White Blood Count 20.5 H Red Blood Count 3.94 L Hemoglobin 11.5 L Hematocrit 34.6 L Mean Corpuscular Volume 87.8 Mean Corpuscular Hemoglobin 29.2 Mean Corpuscular Hemoglobin Concent 33.2 Red Cell Distribution Width 14.4 Platelet Count 147 Mean Platelet Volume 12.2 H Neutrophils % 82.0 H Lymphocytes % 3.5 L Monocytes % 5.6 Eosinophils % 0.7 Basophils % 0.3 Nucleated Red Blood Cells % 0.0 Neutrophils # 16.8 H Lymphocytes # 0.7 L Monocytes # 1.2 H Eosinophils # 0.1 Basophils # 0.1 Nucleated Red Blood Cells # 0.0 Sodium Level 135 Potassium Level 3.4 L Chloride Level 88 L Carbon Dioxide Level 41 *H Anion Gap 9 Blood Urea Nitrogen 25 H Creatinine 0.85 Glucose Level 84 Calcium Level 6.6 L Total Bilirubin 0.5 Direct Bilirubin 0.00 Indirect Bilirubin 0.5 Aspartate Amino Transf (AST/SGOT) 187 H Alanine Aminotransferase (ALT/SGPT) 138 H Alkaline Phosphatase 132 H Total Protein 5.4 L Albumin 2.2 L Globulin 3.20 Albumin/Globulin Ratio 0.68 Prothrombin Time 16.5 H Prothrombin Time Ratio 1.3 INR International Normalized Ratio 1.32 Medications Medications Current Medications Lubiprostone (Amitiza) 24 mcg BID PO Last administered on 06/03/17t 08:55; Admin Dose 24 MCG; Start 05/25/17 at 09:00 Nitroglycerin (Nitroglycerin (Sl Tab) 0.4 Mg) 0.4 tab PRN SL ; Start 05/25/17 at 06:00 Pantoprazole (Protonix Tab) 40 mg DAILY@06 PO Last administered on 06/03/17 05 :24; Admin Dose 40 MG; Start 05/26/17 at 06:00 Acetaminophen (Tylenol Tab) 650 mg Q6H PRN PO PAIN AND OR ELEVATED TEMP Last administered on 05/29/17 21:47; Admin Dose 650 MG; Start 05/25/17 at 06:30 Magnesium Oxide (Mag-Ox 400) 400 mg DAILY PO Last administered on 06/03/17 08: 54; Admin Dose 400 MG; Start 05/26/17 at 09:00 Guaifenesin/ Dextromethorphan (Robitussin Dm Liquid Cup) 5 ml Q4H PRN PO COUGH Last administered on 05/28/17 18:39; Admin Dose 5 ML; Start 05/25/17 at 15:00 Metoprolol Tartrate (Lopressor) 5 mg Q4H PRN IV HR>110 SBP>180mmhg Last administered on 06/01/17 17:11; Admin Dose 5 MG; Start 05/25/17 at 15:30 Lactobacillus Acidophilus/ Rhamnosus (Culturelle) 1 cap DAILY PO Last administered on 06/03/17 08:55; Admin Dose 1 CAP; Start 05/27/17 at 09:00 Atenolol (Tenormin) 25 mg BID PO Last administered on 05/31/17 08:30; Admin Dose 25 MG; Start 05/26/17 at 21:00; Status Future hold Polyethylene Glycol (Miralax) 8.5 gm DAILY PO Last administered on 06/03/17 08 :54; Admin Dose 8.5 GM; Start 05/29/17 at 09:00 Hydromorphone HCl 0.5 mg 0.5 mg Q6H PRN IV PAIN Last administered on 06/02/17 21:32; Admin Dose 0.5 MG; Start 05/29/17 at 01:00 Fluconazole/ Sodium Chloride 50 ml @ 50 mls/hr Q24H IVPB Last administered on 13:08; Admin Dose 50 MLS/HR; Start 05/30/17 at 12:30 Meropenem/Sodium Chloride (Merrem 1 Gm/50 ml (Pmx)) 50 ml @ 200 mls/hr Q12H IVPB Last administered on 06/03/17 03:43; Admin Dose 200 MLS/HR; Start at 03:00 Diltiazem HCl (Cardizem) 30 mg Q8 PO Last administered on 06/03/17 05:24; Admin Dose 30 MG; Start 05/31/17 at 22:00; Status Future hold Bisacodyl (Dulcolax Supp) 10 mg Q48H PRN [place] CONSTIPATION Last administered on 21:23; Admin Dose 10 MG; Start 05/31/17 at 17:00 Ergocalciferol (Drisdol) 50,000 unit Q7D PO ; Start 05/31/17 at 17:00 Warfarin Sodium (Coumadin) 3 mg DAILY@17 PO Last administered on 06/02/17 17: 25; Admin Dose 3 MG; Start 06/01/17 at 17:00; Status Future Hold Multivitamins Therapeutic (Theragran) 1 tab DAILY PO Last administered on 08:55; Admin Dose 1 TAB; Start 06/02/17 at 09:00 Folic Acid (Folic Acid) 1 mg DAILY PO Last administered on 06/03/17 08:55; Admin Dose 1 MG; Start 06/02/17 at 09:00 Thiamine HCl 100 mg 100 mg DAILY PO Last administered on 06/03/17 08:54; Admin Dose 100 MG; Start 06/02/17 at 09:00 Vancomycin HCl/ Sodium Chloride (Vancocin/NS) 250 ml @ 83.333 mls/ hr Q24H IVPB Last administered on 06/03/17 11:50; Admin Dose 83.333 MLS/HR; Start at 11:00 Potassium Chloride (Klor-Con 20) 20 meq DAILY PO Last administered on 08:55; Admin Dose 20 MEQ; Start 06/03/17 at 09:00 Fondaparinux (Arixtra) 7.5 mg DAILY SC ; Start 06/05/17 at 09:00 PLACIDO COREA Jun 03, 2017 14:32
[2017-06-03] MEDS: ACETAMINOPHEN 325 MG TAB PO PRN (15:05)
[2017-06-03] MEDS: FLUCONAZOLE 100 MG/NS (PMX) 50 ML IVPB SCH (15:07)
--- NOTE | 2017-06-03 17:35 | RADRPT ---
Vent Rate: 118 bpm RR Interval: 0 msec IA Interval: 0 msec QRS Duration: 126 msec QT Interval: 356 msec QTC Interval: 498 msec P-R-T [place]: 0 - 171 - 25 degrees Atrial fibrillation with rapid ventricular response Right bundle branch block Abnormal ECG Electronically Signed By: Fabien Rodriguez [id number]
--- NOTE | 2017-06-03 18:15 | CONS ---
Date/Time of Note Date/Time of Note DATE: 06/03/17 TIME: 18:13 Assessment/Plan Assessment/Plan Chief Complaint/Hosp Course Awake, looks comfortable still with significant shortness of breath and left- sided chest pain Temperature 99.6 pulse 62 respirations 17 blood pressure 103/50 saturation 96 on 4 L WBC 20.5 H&H 11.5 and 34.6 platelets 147 neutrophils 82 BN 25 creatinine 0.85 Antibiotics: Vancomycin, meropenem, fluconazole Physical examination: Well-developed, fragile Spanish-speaking elderly woman who is alert in no distress. Head atraumatic normocephalic, sclera nonicteric. Neck is supple. Chest rise symmetrical breath sounds diminished basis, scattered crackles more on the left. Heart: S1, S2. Abdomen soft, bowel tones present. Patient is having left-sided pain on palpation as well as lower back pain. Extremities without cyanosis. Left upper extremity with trace edema. Assessment: 1. Sepsis versus systemic inflammatory response syndrome with persistent leukocytosis secondary to #2, #3 2. Left kidney hematoma 3. Large left pleural effusion, possible underlying pneumonia 4. Bacteremia with blood culture on admission grew Bacillus species consistent with contaminant 4. Chest pain, cardiology on case 5. Coronary artery disease with a history of mitral valve mechanical prosthesis and ejection fraction of 40% 6. History of permanent pacemaker 7. Allergy: Penicillin Plan: Clinically stable, thoracentesis on hold until coagulopathy improves, continue antibiotics, follow recommendations of consultants Discussed with patient and family at bedside Discussed with Dr. Hughes Problems: Consultation Date/Type/Reason Admit Date/Time May 25, 2017 at 00:06 Initial Consult Date 05/25/17 Type of Consultation: id Referring Provider: DUANE NGUYỄN MD Exam/Review of Systems Vital Signs Vitals Vital Signs Date Time Temp Pulse Resp B/P Pulse Ox O2 Delivery O2 Flow Rate FiO2 06/03/17 17:41 4.0 06/03/17 16:10 103 06/03/17 15:36 99.6 17 103/50 96 06/03/17 08:20 Nasal Cannula Intake and Output 06/02/17 06/02/17 06/03/17 15:00 23:00 07:00 Intake Total 50 ml 650 ml 290 ml Balance 50 ml 650 ml 290 ml Results Result Diagram: 06/03/17 0743 06/03/17 0743 Results 24 hrs Laboratory Tests Test 06/03/17 07:43 06/03/17 07:45 White Blood Count 20.5 H Red Blood Count 3.94 L Hemoglobin 11.5 L Hematocrit 34.6 L Mean Corpuscular Volume 87.8 Mean Corpuscular Hemoglobin 29.2 Mean Corpuscular Hemoglobin Concent 33.2 Red Cell Distribution Width 14.4 Platelet Count 147 Mean Platelet Volume 12.2 H Neutrophils % 82.0 H Lymphocytes % 3.5 L Monocytes % 5.6 Eosinophils % 0.7 Basophils % 0.3 Nucleated Red Blood Cells % 0.0 Neutrophils # 16.8 H Lymphocytes # 0.7 L Monocytes # 1.2 H Eosinophils # 0.1 Basophils # 0.1 Nucleated Red Blood Cells # 0.0 Sodium Level 135 Potassium Level 3.4 L Chloride Level 88 L Carbon Dioxide Level 41 *H Anion Gap 9 Blood Urea Nitrogen 25 H Creatinine 0.85 Glucose Level 84 Calcium Level 6.6 L Total Bilirubin 0.5 Direct Bilirubin 0.00 Indirect Bilirubin 0.5 Aspartate Amino Transf (AST/SGOT) 187 H Alanine Aminotransferase (ALT/SGPT) 138 H Alkaline Phosphatase 132 H Total Protein 5.4 L Albumin 2.2 L Globulin 3.20 Albumin/Globulin Ratio 0.68 Prothrombin Time 16.5 H Prothrombin Time Ratio 1.3 INR International Normalized Ratio 1.32 Medications Medications Current Medications Lubiprostone (Amitiza) 24 mcg BID PO Last administered on 06/03/17 08:55; Admin Dose 24 MCG; Start 05/25/17 at 09:00 Nitroglycerin (Nitroglycerin (Sl Tab) 0.4 Mg) 0.4 tab PRN SL ; Start 05/25/17 at 06:00 Pantoprazole (Protonix Tab) 40 mg DAILY@06 PO Last administered on 06/03/17 05 :24; Admin Dose 40 MG; Start 05/26/17 at 06:00 Acetaminophen (Tylenol Tab) 650 mg Q6H PRN PO PAIN AND OR ELEVATED TEMP Last administered on 06/03/17 15:05; Admin Dose 650 MG; Start 05/25/17 at 06:30 Magnesium Oxide (Mag-Ox 400) 400 mg DAILY PO Last administered on 06/03/17 08: 54; Admin Dose 400 MG; Start 05/26/17 at 09:00 Guaifenesin/ Dextromethorphan (Robitussin Dm Liquid Cup) 5 ml Q4H PRN PO COUGH Last administered on 05/28/17 18:39; Admin Dose 5 ML; Start 05/25/17 at 15:00 Metoprolol Tartrate (Lopressor) 5 mg Q4H PRN IV HR>110 SBP>180mmhg Last administered on 06/01/17 17:11; Admin Dose 5 MG; Start 05/25/17 at 15:30 Lactobacillus Acidophilus/ Rhamnosus (Culturelle) 1 cap DAILY PO Last administered on 06/03/17 08:55; Admin Dose 1 CAP; Start 05/27/17 at 09:00 Atenolol (Tenormin) 25 mg BID PO Last administered on 05/31/17 08:30; Admin Dose 25 MG; Start 05/26/17 at 21:00; Status Future hold Polyethylene Glycol (Miralax) 8.5 gm DAILY PO Last administered on 06/03/17 08 :54; Admin Dose 8.5 GM; Start 05/29/17 at 09:00 Hydromorphone HCl 0.5 mg 0.5 mg Q6H PRN IV PAIN Last administered on 06/02/17 21:32; Admin Dose 0.5 MG; Start 05/29/17 at 01:00 Fluconazole/ Sodium Chloride 50 ml @ 50 mls/hr Q24H IVPB Last administered on 15:07; Admin Dose 50 MLS/HR; Start 05/30/17 at 12:30 Meropenem/Sodium Chloride (Merrem 1 Gm/50 ml (Pmx)) 50 ml @ 200 mls/hr Q12H IVPB Last administered on 06/03/17 17:32; Admin Dose 200 MLS/HR; Start at 03:00 Diltiazem HCl (Cardizem) 30 mg Q8 PO Last administered on 06/03/17 14:29; Admin Dose 30 MG; Start 05/31/17 at 22:00; Status Future hold Bisacodyl (Dulcolax Supp) [address] CONSTIPATION Last administered on 21:23; Admin Dose 10 MG; Start 05/31/17 at 17:00 Ergocalciferol (Drisdol) 50,000 unit Q7D PO ; Start 05/31/17 at 17:00 Warfarin Sodium (Coumadin) 3 mg DAILY@17 PO Last administered on 06/02/17 17: 25; Admin Dose 3 MG; Start 06/01/17 at 17:00; Status Future Hold Multivitamins Therapeutic (Theragran) 1 tab DAILY PO Last administered on 08:55; Admin Dose 1 TAB; Start 06/02/17 at 09:00 Folic Acid (Folic Acid) 1 mg DAILY PO Last administered on 06/03/17 08:55; Admin Dose 1 MG; Start 06/02/17 at 09:00 Thiamine HCl 100 mg 100 mg DAILY PO Last administered on 06/03/17 08:54; Admin Dose 100 MG; Start 06/02/17 at 09:00 Vancomycin HCl/ Sodium Chloride (Vancocin/NS) 250 ml @ 83.333 mls/ hr Q24H IVPB Last administered on 06/03/17 11:50; Admin Dose 83.333 MLS/HR; Start at 11:00 Potassium Chloride (Klor-Con 20) 20 meq DAILY PO Last administered on 08:55; Admin Dose 20 MEQ; Start 06/03/17 at 09:00 Fondaparinux (Arixtra) 7.5 mg DAILY SC ; Start 06/05/17 at 09:00 ABLDOMERO STARKS NP Jun 03, 2017 18:15
--- NOTE | 2017-06-03 18:25 | PN ---
Date/Time of Note Date/Time of Note DATE: 06/03/17 TIME: 18:17 Assessment/Plan VTE Prophylaxis VTE Prophylaxis Intervention: ambulation Lines/Catheters IV [facility] Urinary Cath still in place: No Assessment/Plan Chief Complaint/Hosp Course Patient has perinephric fluid collection which is most likely a hematoma. Will do a renal ultrasound in 2 days to check on the kidney, make sure that the perinephric hematoma has not increased in size. Problems: Assessment/Plan Pain in the left flank area appears to be more today than it was yesterday. Patient has been on Arixtra7.5mg. We will check her H&H daily and if there is any need to transfuse her we will do that Patient going for thoracentesis tomorrow morning Subjective 24 Hr Interval Summary Free Text/Dictation Patient is complaining of left flank pain Constitutional: no complaints, No chills Eyes: no complaints ENT: no complaints Respiratory: no complaints Cardiovascular: No chest pain Gastrointestinal: no complaints, No nausea, No vomiting Genitourinary: No bleeding, No dysuria Musculoskeletal: no complaints Skin: no complaints Neurologic: no complaints Endocrine: no complaints Lymphatic: no complaints Psychological: no complaints Exam/Review of Systems Vital Signs Vitals Vital Signs Date Time Temp Pulse Resp B/P Pulse Ox O2 Delivery O2 Flow Rate FiO2 06/03/17 17:41 4.0 06/03/17 16:10 103 06/03/17 15:36 99.6 17 103/50 96 06/03/17 08:20 Nasal Cannula Intake and Output 06/02/17 06/02/17 06/03/17 15:00 23:00 07:00 Intake Total 50 ml 650 ml 290 ml Balance 50 ml 650 ml 290 ml Exam Constitutional: alert Psych: no complaints Head: normocephalic Eyes: nl conjunctiva ENMT: nl external ears & nose Neck: supple, No thyromegaly Respiratory: normal air movement Cardiovascular: nl pulses Gastrointestinal: soft, tender (Left flank area) Genitourinary - Female: CVA tenderness Musculoskeletal: nl extremities to inspection Extremities: normal pulses, No edema, No palpable cord Results Result Diagram: 06/03/17 0743 06/03/17 0743 Results 24 hrs Laboratory Tests Test 06/03/17 07:43 06/03/17 07:45 White Blood Count 20.5 H Red Blood Count 3.94 L Hemoglobin 11.5 L Hematocrit 34.6 L Mean Corpuscular Volume 87.8 Mean Corpuscular Hemoglobin 29.2 Mean Corpuscular Hemoglobin Concent 33.2 Red Cell Distribution Width 14.4 Platelet Count 147 Mean Platelet Volume 12.2 H Neutrophils % 82.0 H Lymphocytes % 3.5 L Monocytes % 5.6 Eosinophils % 0.7 Basophils % 0.3 Nucleated Red Blood Cells % 0.0 Neutrophils # 16.8 H Lymphocytes # 0.7 L Monocytes # 1.2 H Eosinophils # 0.1 Basophils # 0.1 Nucleated Red Blood Cells # 0.0 Sodium Level 135 Potassium Level 3.4 L Chloride Level 88 L Carbon Dioxide Level 41 *H Anion Gap 9 Blood Urea Nitrogen 25 H Creatinine 0.85 Glucose Level 84 Calcium Level 6.6 L Total Bilirubin 0.5 Direct Bilirubin 0.00 Indirect Bilirubin 0.5 Aspartate Amino Transf (AST/SGOT) 187 H Alanine Aminotransferase (ALT/SGPT) 138 H Alkaline Phosphatase 132 H Total Protein 5.4 L Albumin 2.2 L Globulin 3.20 Albumin/Globulin Ratio 0.68 Prothrombin Time 16.5 H Prothrombin Time Ratio 1.3 INR International Normalized Ratio 1.32 Medications Medications Current Medications Lubiprostone (Amitiza) 24 mcg BID PO Last administered on 06/03/17 08:55; Admin Dose 24 MCG; Start 05/25/17 at 09:00 Nitroglycerin (Nitroglycerin (Sl Tab) 0.4 Mg) 0.4 tab PRN SL ; Start 05/25/17 at 06:00 Pantoprazole (Protonix Tab) 40 mg DAILY@06 PO Last administered on 06/03/17 05 :24; Admin Dose 40 MG; Start 05/26/17 at 06:00 Acetaminophen (Tylenol Tab) 650 mg Q6H PRN PO PAIN AND OR ELEVATED TEMP Last administered on 06/03/17 15:05; Admin Dose 650 MG; Start 05/25/17 at 06:30 Magnesium Oxide (Mag-Ox 400) 400 mg DAILY PO Last administered on 06/03/17 08: 54; Admin Dose 400 MG; Start 05/26/17 at 09:00 Guaifenesin/ Dextromethorphan (Robitussin Dm Liquid Cup) 5 ml Q4H PRN PO COUGH Last administered on 05/28/17 18:39; Admin Dose 5 ML; Start 05/25/17 at 15:00 Metoprolol Tartrate (Lopressor) 5 mg Q4H PRN IV HR>110 SBP>180mmhg Last administered on 06/01/17 17:11; Admin Dose 5 MG; Start 05/25/17 at 15:30 Lactobacillus Acidophilus/ Rhamnosus (Culturelle) 1 cap DAILY PO Last administered on 06/03/17 08:55; Admin Dose 1 CAP; Start 05/27/17 at 09:00 Atenolol (Tenormin) 25 mg BID PO Last administered on 05/31/17 08:30; Admin Dose 25 MG; Start 05/26/17 at 21:00; Status Future hold Polyethylene Glycol (Miralax) 8.5 gm DAILY PO Last administered on 06/03/17 08 :54; Admin Dose 8.5 GM; Start 05/29/17 at 09:00 Hydromorphone HCl 0.5 mg 0.5 mg Q6H PRN IV PAIN Last administered on 06/02/17 21:32; Admin Dose 0.5 MG; Start 05/29/17 at 01:00 Fluconazole/ Sodium Chloride 50 ml @ 50 mls/hr Q24H IVPB Last administered on 15:07; Admin Dose 50 MLS/HR; Start 05/30/17 at 12:30 Meropenem/Sodium Chloride (Merrem 1 Gm/50 ml (Pmx)) 50 ml @ 200 mls/hr Q12H IVPB Last administered on 06/03/17 17:32; Admin Dose 200 MLS/HR; Start at 03:00 Diltiazem HCl (Cardizem) 30 mg Q8 PO Last administered on 06/03/17 14:29; Admin Dose 30 MG; Start 05/31/17 at 22:00; Status Future hold Bisacodyl (Dulcolax Supp) 10 mg Q48H PRN [place] CONSTIPATION Last administered on 21:23; Admin Dose 10 MG; Start 05/31/17 at 17:00 Ergocalciferol (Drisdol) 50,000 unit Q7D PO ; Start 05/31/17 at 17:00 Warfarin Sodium (Coumadin) 3 mg DAILY@17 PO Last administered on 06/02/17 17: 25; Admin Dose 3 MG; Start 06/01/17 at 17:00; Status Future Hold Multivitamins Therapeutic (Theragran) 1 tab DAILY PO Last administered on 08:55; Admin Dose 1 TAB; Start 06/02/17 at 09:00 Folic Acid (Folic Acid) 1 mg DAILY PO Last administered on 06/03/17 08:55; Admin Dose 1 MG; Start 06/02/17 at 09:00 Thiamine HCl 100 mg 100 mg DAILY PO Last administered on 06/03/17 08:54; Admin Dose 100 MG; Start 06/02/17 at 09:00 Vancomycin HCl/ Sodium Chloride (Vancocin/NS) 250 ml @ 83.333 mls/ hr Q24H IVPB Last administered on 06/03/17 11:50; Admin Dose 83.333 MLS/HR; Start at 11:00 Potassium Chloride (Klor-Con 20) 20 meq DAILY PO Last administered on 08:55; Admin Dose 20 MEQ; Start 06/03/17 at 09:00 Fondaparinux (Arixtra) 7.5 mg DAILY SC ; Start 06/05/17 at 09:00 ANA WILKINSON MD Jun 03, 2017 18:25
[2017-06-03] MEDS ORDERED: POTASSIUM CHLORIDE 20 MEQ in SOD CHLORIDE 0.9% 100 ML IVPB ONE (22:00)
--- NOTE | 2017-06-03 23:06 | PN ---
Date/Time of Note Date/Time of Note DATE: 06/03/17 TIME: 23:04 Assessment/Plan VTE Prophylaxis VTE Prophylaxis Intervention: other Lines/Catheters [facility] Urinary Cath still in place: No Assessment/Plan Chief Complaint/Hosp Course SEPSIS AFIB HTN ASHD hyponatremia PEURAL EFFUSION UTI LOW EF vicki platelet better PLAN LASIX ANTIBIOTIC antibiotic BUMEX THORACENTESIS kcl Problems: Subjective 24 Hr Interval Summary Respiratory: no complaints Cardiovascular: no complaints Exam/Review of Systems Vital Signs Vitals Vital Signs Date Time Temp Pulse Resp B/P Pulse Ox O2 Delivery O2 Flow Rate FiO2 06/03/17 20:30 85 06/03/17 20:23 97.6 16 100/55 97 06/03/17 19:53 Nasal Cannula 3.0 Intake and Output 06/02/17 06/02/17 06/03/17 15:00 23:00 07:00 Intake Total 50 ml 650 ml 290 ml Balance 50 ml 650 ml 290 ml Exam Eyes: nl conjunctiva Neck: supple Respiratory: clear to auscultation Cardiovascular: regular rate and rhythm Gastrointestinal: soft Extremities: No edema Results Result Diagram: 06/03/17 0743 06/03/17 0743 Results 24 hrs Laboratory Tests Test 06/03/17 07:43 06/03/17 07:45 White Blood Count 20.5 H Red Blood Count 3.94 L Hemoglobin 11.5 L Hematocrit 34.6 L Mean Corpuscular Volume 87.8 Mean Corpuscular Hemoglobin 29.2 Mean Corpuscular Hemoglobin Concent 33.2 Red Cell Distribution Width 14.4 Platelet Count 147 Mean Platelet Volume 12.2 H Neutrophils % 82.0 H Lymphocytes % 3.5 L Monocytes % 5.6 Eosinophils % 0.7 Basophils % 0.3 Nucleated Red Blood Cells % 0.0 Neutrophils # 16.8 H Lymphocytes # 0.7 L Monocytes # 1.2 H Eosinophils # 0.1 Basophils # 0.1 Nucleated Red Blood Cells # 0.0 Sodium Level 135 Potassium Level 3.4 L Chloride Level 88 L Carbon Dioxide Level 41 *H Anion Gap 9 Blood Urea Nitrogen 25 H Creatinine 0.85 Glucose Level 84 Calcium Level 6.6 L Total Bilirubin 0.5 Direct Bilirubin 0.00 Indirect Bilirubin 0.5 Aspartate Amino Transf (AST/SGOT) 187 H Alanine Aminotransferase (ALT/SGPT) 138 H Alkaline Phosphatase 132 H Total Protein 5.4 L Albumin 2.2 L Globulin 3.20 Albumin/Globulin Ratio 0.68 Prothrombin Time 16.5 H Prothrombin Time Ratio 1.3 INR International Normalized Ratio 1.32 Medications Medications Current Medications Lubiprostone (Amitiza) 24 mcg BID PO Last administered on 06/03/17 21:41; Admin Dose 24 MCG; Start 05/25/17 at 09:00 Nitroglycerin (Nitroglycerin (Sl Tab) 0.4 Mg) 0.4 tab PRN SL ; Start 05/25/17 at 06:00 Pantoprazole (Protonix Tab) 40 mg DAILY@06 PO Last administered on 06/03/17 05 :24; Admin Dose 40 MG; Start 05/26/17 at 06:00 Acetaminophen (Tylenol Tab) 650 mg Q6H PRN PO PAIN AND OR ELEVATED TEMP Last administered on 06/03/17 15:05; Admin Dose 650 MG; Start 05/25/17 at 06:30 Magnesium Oxide (Mag-Ox 400) 400 mg DAILY PO Last administered on 06/03/17 08: 54; Admin Dose 400 MG; Start 05/26/17 at 09:00 Guaifenesin/ Dextromethorphan (Robitussin Dm Liquid Cup) 5 ml Q4H PRN PO COUGH Last administered on 05/28/17 18:39; Admin Dose 5 ML; Start 05/25/17 at 15:00 Metoprolol Tartrate (Lopressor) 5 mg Q4H PRN IV HR>110 SBP>180mmhg Last administered on 06/01/17 17:11; Admin Dose 5 MG; Start 05/25/17 at 15:30 Lactobacillus Acidophilus/ Rhamnosus (Culturelle) 1 cap DAILY PO Last administered on 06/03/17 08:55; Admin Dose 1 CAP; Start 05/27/17 at 09:00 Atenolol (Tenormin) 25 mg BID PO Last administered on 05/31/17 08:30; Admin Dose 25 MG; Start 05/26/17 at 21:00; Status Future hold Polyethylene Glycol (Miralax) 8.5 gm DAILY PO Last administered on 06/03/17 08 :54; Admin Dose 8.5 GM; Start 05/29/17 at 09:00 Hydromorphone HCl 0.5 mg 0.5 mg Q6H PRN IV PAIN Last administered on 06/02/17 21:32; Admin Dose 0.5 MG; Start 05/29/17 at 01:00 Fluconazole/ Sodium Chloride 50 ml @ 50 mls/hr Q24H IVPB Last administered on 15:07; Admin Dose 50 MLS/HR; Start 05/30/17 at 12:30 Meropenem/Sodium Chloride (Merrem 1 Gm/50 ml (Pmx)) 50 ml @ 200 mls/hr Q12H IVPB Last administered on 06/03/17 17:32; Admin Dose 200 MLS/HR; Start at 03:00 Diltiazem HCl (Cardizem) 30 mg Q8 PO Last administered on 06/03/17 21:41; Admin Dose 30 MG; Start 05/31/17 at 22:00; Status Future hold Bisacodyl (Dulcolax Supp) 10 mg Q48H PRN [place] CONSTIPATION Last administered on 21:23; Admin Dose 10 MG; Start 05/31/17 at 17:00 Ergocalciferol (Drisdol) 50,000 unit Q7D PO ; Start 05/31/17 at 17:00 Warfarin Sodium (Coumadin) 3 mg DAILY@17 PO Last administered on 06/02/17 17: 25; Admin Dose 3 MG; Start 06/01/17 at 17:00; Status Future Hold Multivitamins Therapeutic (Theragran) 1 tab DAILY PO Last administered on 08:55; Admin Dose 1 TAB; Start 06/02/17 at 09:00 Folic Acid (Folic Acid) 1 mg DAILY PO Last administered on 06/03/17 08:55; Admin Dose 1 MG; Start 06/02/17 at 09:00 Thiamine HCl 100 mg 100 mg DAILY PO Last administered on 06/03/17 08:54; Admin Dose 100 MG; Start 06/02/17 at 09:00 Vancomycin HCl/ Sodium Chloride (Vancocin/NS) 250 ml @ 83.333 mls/ hr Q24H IVPB Last administered on 06/03/17 11:50; Admin Dose 83.333 MLS/HR; Start at 11:00 Potassium Chloride (Klor-Con 20) 20 meq DAILY PO Last administered on 08:55; Admin Dose 20 MEQ; Start 06/03/17 at 09:00 Fondaparinux 7.5 mg 7.5 mg DAILY SC ; Start 06/05/17 at 09:00 Potassium Chloride/Sodium Chloride (KCl/NS) 110 ml @ 55 mls/hr ONCE ONCE IVPB Last administered on 06/03/17 23:02; Admin Dose 55 MLS/HR; Start 06/03/17 at 22:00; Stop 06/03/17 at 23:59 DUANE NGUYỄN MD Jun 03, 2017 23:06
[2017-06-04] VITALS (11 sets, daily range): BP systolic 98–136; BP diastolic 53–64; PULSE 75–156; RESP 16–20
[2017-06-04] MEDS: MEROPENEM 1 GM/50ML(PMX) 50 ML IVPB SCH ×2 (02:21→15:17)
[2017-06-04] MEDS: LEVALBUTEROL (NEB) 0.63 MG/3 ML AMP HHN PRN ×3 (02:47→15:42)
[2017-06-04] MEDS: FUROSEMIDE 40 MG INJ IV SCH ×2 (05:31→17:46)
[2017-06-04] MEDS: PANTOPRAZOLE (EC) 40 MG TAB PO SCH (05:32)
[2017-06-04] MEDS: DILTIAZEM 30 MG TAB PO SCH ×3 (05:32→20:34)
[2017-06-04 07:14] LABS: HEMATOCRIT 37.5 % (37.0-47.0); HEMOGLOBIN 12.2 g/dl (12.0-16.0)
[2017-06-04 07:33] LABS: INR 1.45; PROTIME 17.7 Sec (12.2-14.2); PT RATIO 1.4
[2017-06-04 07:35] LABS: ALBUMIN 2.3 g/dl (3.3-4.9); ALBUMIN/GLOBULIN RATIO 0.69; BILIRUBIN,INDIRECT 0.3 mg/dl (0-1.1); BILIRUBIN,TOTAL 0.3 mg/dl (0.2-1.3); CALCIUM 7.1 mg/dl (8.4-10.2); CREATININE 0.87 mg/dl (0.44-1.00); POTASSIUM 3.7 mmol/L (3.5-5.1); TOTAL PROTEIN 5.6 g/dl (6.1-8.1)
[2017-06-04] MEDS ORDERED: FONDAPARINUX 2.5 MG SYG SC SCH (09:00)
[2017-06-04] MEDS: MULTIVITAMINS THERAPEUTIC TAB PO SCH (09:33)
[2017-06-04] MEDS: POLYETHYLENE GLYCOL 17 GM PACKET PO SCH (09:33)
[2017-06-04] MEDS: THIAMINE 100 MG TAB PO SCH (09:34)
[2017-06-04] MEDS: MAGNESIUM OXIDE 400 MG TAB PO SCH (09:34)
[2017-06-04] MEDS: LUBIPROSTONE 24 MCG CAP PO SCH ×2 (09:34→20:34)
[2017-06-04] MEDS: POTASSIUM CHLORIDE (SR) 20 MEQ TAB PO SCH (09:34)
[2017-06-04] MEDS: LACTOBACILLUS RHAMNOSUS CAP PO SCH (09:34)
[2017-06-04] MEDS: FOLIC ACID 1 MG TAB PO SCH (09:34)
[2017-06-04] MEDS: ATENOLOL 25 MG TAB PO SCH ×2 (09:34→20:33)
[2017-06-04] MEDS: LEVOTHYROXINE 75 MCG TAB PO SCH (09:34)
--- NOTE | 2017-06-04 09:59 | CONS ---
Date/Time of Note Date/Time of Note DATE: 06/04/17 TIME: 09:57 Assessment/Plan Assessment/Plan Chief Complaint/Hosp Course 76 yo female on Coumadin admitted for TIA, who was found to have partial thrombosis of internal jugular vein. # Thrombosis while on Coumadin - Given that patient has a prosthetic mitral valve, her anticoagulation options are limited to coumadin but this was on hold because of supratherapeutic INR. Especially since this (IJ clot) is a relatively asymptomatic partial thrombosis, I do not think we need to change anticoagulation at this time. - I would recommend to keep the INR between 2.5-3.5. Given INR is >4 and urology concern for perinephric bleed., patient given one time dose of vit K low dose on 05/31/17. Now INR subtherapeutic at 1.45, patient restarted on 3 mg coumadin 06/01, continue 3 mg dose as patient supratherapeutic on 4 mg dose and takes 3-5 days to see effect of coumadin - patient on fondaparinux while INR subtherapeutic for a minimum of 5 days and until INR therapeutic for [address] Hughes, hold anticoagulation this a.m. for thoracentesis. Pending repeat US to eval hematoma per Dr. Andrews. hgb is fairly stable ~12 and will follow # UTI -continue antibiotics #Ischemic Cardiomyopathy -management per cardiology Problems: Consultation Date/Type/Reason Admit Date/Time May 25, 2017 at 00:06 Initial Consult Date 05/30/17 Type of Consultation: Hematology Referring Provider: DUANE NGUYỄN MD 24 HR Interval Summary Free Text/Dictation Patient febrile to 101.3. Patient has no complaints. No bleeding. Exam/Review of Systems Vital Signs Vitals Vital Signs Date Time Temp Pulse Resp B/P Pulse Ox O2 Delivery O2 Flow Rate FiO2 06/04/17 09:39 80 22 90 Nasal Cannula 3.0 32 06/04/17 07:47 101.3 113/53 Intake and Output 06/03/17 06/03/17 06/04/17 15:00 23:00 07:00 Intake Total 250 ml 500 ml 400 ml Balance 250 ml 500 ml 400 ml Exam Constitutional: alert, oriented Psych: nl mood/affect Eyes: nl conjunctiva Neck: supple Respiratory: normal air movement Results Result Diagram: 06/04/1761806/04/17618 Results 24 hrs Laboratory Tests Test 06/04/17 06:19 Hemoglobin 12.2 Hematocrit 37.5 Prothrombin Time 17.7 H Prothrombin Time Ratio 1.4 INR International Normalized Ratio 1.45 Sodium Level 135 Potassium Level 3.7 Chloride Level 86 L Carbon Dioxide Level 39 H Anion Gap 14 Blood Urea Nitrogen 26 H Creatinine 0.87 Glucose Level 110 Calcium Level 7.1 L Total Bilirubin 0.3 Direct Bilirubin 0.00 Indirect Bilirubin 0.3 Aspartate Amino Transf (AST/SGOT) 123 H Alanine Aminotransferase (ALT/SGPT) 116 H Alkaline Phosphatase 141 H Total Protein 5.6 L Albumin 2.3 L Globulin 3.30 H Albumin/Globulin Ratio 0.69 Medications Medications Current Medications Lubiprostone (Amitiza) 24 mcg BID PO Last administered on 06/04/17 09:34; Admin Dose 24 MCG; Start 05/25/17 at 09:00 Nitroglycerin (Nitroglycerin (Sl Tab) 0.4 Mg) 0.4 tab PRN SL ; Start 05/25/17 at 06:00 Pantoprazole (Protonix Tab) 40 mg DAILY@06 PO Last administered on 06/04/17 05 :32; Admin Dose 40 MG; Start 05/26/17 at 06:00 Acetaminophen (Tylenol Tab) 650 mg Q6H PRN PO PAIN AND OR ELEVATED TEMP Last administered on 06/03/17 15:05; Admin Dose 650 MG; Start 05/25/17 at 06:30 Magnesium Oxide (Mag-Ox 400) 400 mg DAILY PO Last administered on 06/04/17 09: 34; Admin Dose 400 MG; Start 05/26/17 at 09:00 Guaifenesin/ Dextromethorphan (Robitussin Dm Liquid Cup) 5 ml Q4H PRN PO COUGH Last administered on 05/28/17 18:39; Admin Dose 5 ML; Start 05/25/17 at 15:00 Metoprolol Tartrate (Lopressor) 5 mg Q4H PRN IV HR>110 SBP>180mmhg Last administered on 06/01/17 17:11; Admin Dose 5 MG; Start 05/25/17 at 15:30 Lactobacillus Acidophilus/ Rhamnosus (Culturelle) 1 cap DAILY PO Last administered on 06/04/17 09:34; Admin Dose 1 CAP; Start 05/27/17 at 09:00 Atenolol (Tenormin) 25 mg BID PO Last administered on 06/04/17 09:34; Admin Dose 25 MG; Start 05/26/17 at 21:00; Status Future hold Polyethylene Glycol (Miralax) 8.5 gm DAILY PO Last administered on 06/04/17 09 :33; Admin Dose 8.5 GM; Start 05/29/17 at 09:00 Hydromorphone HCl 0.5 mg 0.5 mg Q6H PRN IV PAIN Last administered on 06/02/17 21:32; Admin Dose 0.5 MG; Start 05/29/17 at 01:00 Fluconazole/ Sodium Chloride 50 ml @ 50 mls/hr Q24H IVPB Last administered on 15:07; Admin Dose 50 MLS/HR; Start 05/30/17 at 12:30 Meropenem/Sodium Chloride (Merrem 1 Gm/50 ml (Pmx)) 50 ml @ 200 mls/hr Q12H IVPB Last administered on 06/04/17 02:21; Admin Dose 200 MLS/HR; Start at 03:00 Diltiazem HCl (Cardizem) 30 mg Q8 PO Last administered on 06/04/17 05:32; Admin Dose 30 MG; Start 05/31/17 at 22:00; Status Future hold Bisacodyl (Dulcolax Supp) 10 mg Q48H PRN [place] CONSTIPATION Last administered on 21:23; Admin Dose 10 MG; Start 05/31/17 at 17:00 Ergocalciferol (Drisdol) 50,000 unit Q7D PO ; Start 05/31/17 at 17:00 Warfarin Sodium (Coumadin) 3 mg DAILY@17 PO Last administered on 06/02/17 17: 25; Admin Dose 3 MG; Start 06/01/17 at 17:00; Status Future Hold Multivitamins Therapeutic (Theragran) 1 tab DAILY PO Last administered on 09:33; Admin Dose 1 TAB; Start 06/02/17 at 09:00 Folic Acid (Folic Acid) 1 mg DAILY PO Last administered on 06/04/17 09:34; Admin Dose 1 MG; Start 06/02/17 at 09:00 Thiamine HCl 100 mg 100 mg DAILY PO Last administered on 06/04/17 09:34; Admin Dose 100 MG; Start 06/02/17 at 09:00 Vancomycin HCl/ Sodium Chloride (Vancocin/NS) 250 ml @ 83.333 mls/ hr Q24H IVPB Last administered on 06/03/17 11:50; Admin Dose 83.333 MLS/HR; Start at 11:00 Potassium Chloride (Klor-Con 20) 20 meq DAILY PO Last administered on 09:34; Admin Dose 20 MEQ; Start 06/03/17 at 09:00 Fondaparinux (Arixtra) 7.5 mg DAILY SC ; Start 06/05/17 at 09:00 TODEONTE MD Jun 04, 2017 09:58
[2017-06-04] MEDS: VANCOMYCIN 1.25 GM in SOD CHLORIDE 0.9% 250 ML IVPB SCH (11:26)
--- NOTE | 2017-06-04 12:53 | CONS ---
Date/Time of Note Date/Time of Note DATE: 06/04/17 TIME: 12:47 Assessment/Plan Assessment/Plan Chief Complaint/Hosp Course IMP: 1.tachycardia-? S Tach/PAF-overall improved when recieves BB/CCB regimen [place] device 2.Hypotension-improved/stable/tolerating medications 3.AF-some RVR as dilt/atenolol held 4.Fevers/leukcytosis-increased significantly 5. TIA 6.UTI 7. coagulopathy-s/p Vitamin k and now subtherapeutic 8. L sided rib pain-positive TTP/resolved-negative troponin 9. 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 Hypontremia 14. Episode of AMS and [employer] thought to be due to possible CVA-head CT negative. Currently stable 15. CHF-systolic acute on chronic LVEF 40% by echo this admit 16. Pleural effusion Recc: -Tele -Continue BB/CCB as tolerated -Will give IVP digoxin extra dose -Continue abx's and f/u cx data -treat fevers -urology following -Patient with subtherapeutic INR now and possible cerebral event/IJ thrombus now on arixtra which was held today -Follow volume status closely s/p Bumex drip and will decrease dose of lasix following volume status/claims agent right of way/bun closely -To have throracentesis today and ths arixtra held Problems: Consultation Date/Type/Reason Admit Date/Time May 25, 2017 at 00:06 Initial Consult Date 05/25/17 Type of Consultation: cardiology Reason for Consultation tachycardia Referring Provider: DUANE NGUYỄN MD Exam/Review of Systems Vital Signs Vitals Vital Signs Date Time Temp Pulse Resp B/P Pulse Ox O2 Delivery O2 Flow Rate FiO2 06/04/17 12:26 156 06/04/17 11:31 97.9 16 98/64 100 06/04/17 09:39 Nasal Cannula 3.0 32 Intake and Output 06/03/17 06/03/17 06/04/17 15:00 23:00 07:00 Intake Total 250 ml 500 ml 400 ml Balance 250 ml 500 ml 400 ml Exam Review of Systems: CONSTITUTIONAL: Fevers PULMONARY: No sob CARDIOVASCULAR: No chest pain/palpitations GASTROINTESTINAL: No nausea/vomiting. GENITOURINARY: No hematuria/dysuria. MUSCULOSKELETAL: No myagias/arthalgias. PSYCHIATRIC: The patient denies depression. NEUROLOGIC: lethargic Constitutional: alert Psych: no complaints Head: normocephalic ENMT: mucosa pink and moist Neck: jvd (8-9 cm water), supple Respiratory: diminished breath sounds Cardiovascular: irregular rhythm (tachycardia) Gastrointestinal: ascites Musculoskeletal: muscle tone (normAL) Extremities: edema (NONE) Neurological: other (nO FOCAL DEFICITS) Results Result Diagram: 06/04/1761806/04/17618 Results 24 hrs Laboratory Tests Test 06/04/17 06:19 Hemoglobin 12.2 Hematocrit 37.5 Prothrombin Time 17.7 H Prothrombin Time Ratio 1.4 INR International Normalized Ratio 1.45 Sodium Level 135 Potassium Level 3.7 Chloride Level 86 L Carbon Dioxide Level 39 H Anion Gap 14 Blood Urea Nitrogen 26 H Creatinine 0.87 Glucose Level 110 Calcium Level 7.1 L Total Bilirubin 0.3 Direct Bilirubin 0.00 Indirect Bilirubin 0.3 Aspartate Amino Transf (AST/SGOT) 123 H Alanine Aminotransferase (ALT/SGPT) 116 H Alkaline Phosphatase 141 H Total Protein 5.6 L Albumin 2.3 L Globulin 3.30 H Albumin/Globulin Ratio 0.69 Medications Medications Current Medications Lubiprostone (Amitiza) 24 mcg BID PO Last administered on 06/04/17 09:34; Admin Dose 24 MCG; Start 05/25/17 at 09:00 Nitroglycerin (Nitroglycerin (Sl Tab) 0.4 Mg) 0.4 tab PRN SL ; Start 05/25/17 at 06:00 Pantoprazole (Protonix Tab) 40 mg DAILY@06 PO Last administered on 06/04/17 05 :32; Admin Dose 40 MG; Start 05/26/17 at 06:00 Acetaminophen (Tylenol Tab) 650 mg Q6H PRN PO PAIN AND OR ELEVATED TEMP Last administered on 06/03/17 15:05; Admin Dose 650 MG; Start 05/25/17 at 06:30 Magnesium Oxide (Mag-Ox 400) 400 mg DAILY PO Last administered on 06/04/17 09: 34; Admin Dose 400 MG; Start 05/26/17 at 09:00 Guaifenesin/ Dextromethorphan (Robitussin Dm Liquid Cup) 5 ml Q4H PRN PO COUGH Last administered on 05/28/17 18:39; Admin Dose 5 ML; Start 05/25/17 at 15:00 Metoprolol Tartrate (Lopressor) 5 mg Q4H PRN IV HR>110 SBP>180mmhg Last administered on 06/01/17 17:11; Admin Dose 5 MG; Start 05/25/17 at 15:30 Lactobacillus Acidophilus/ Rhamnosus (Culturelle) 1 cap DAILY PO Last administered on 06/04/17 09:34; Admin Dose 1 CAP; Start 05/27/17 at 09:00 Atenolol (Tenormin) 25 mg BID PO Last administered on 06/04/17 09:34; Admin Dose 25 MG; Start 05/26/17 at 21:00; Status Future hold Polyethylene Glycol (Miralax) 8.5 gm DAILY PO Last administered on 06/04/17 09 :33; Admin Dose 8.5 GM; Start 05/29/17 at 09:00 Hydromorphone HCl 0.5 mg 0.5 mg Q6H PRN IV PAIN Last administered on 06/02/17 21:32; Admin Dose 0.5 MG; Start 05/29/17 at 01:00 Fluconazole/ Sodium Chloride 50 ml @ 50 mls/hr Q24H IVPB Last administered on 15:07; Admin Dose 50 MLS/HR; Start 05/30/17 at 12:30 Meropenem/Sodium Chloride (Merrem 1 Gm/50 ml (Pmx)) 50 ml @ 200 mls/hr Q12H IVPB Last administered on 06/04/17 02:21; Admin Dose 200 MLS/HR; Start at 03:00 Diltiazem HCl (Cardizem) 30 mg Q8 PO Last administered on 06/04/17 11:40; Admin Dose 30 MG; Start 05/31/17 at 22:00; Status Future hold Bisacodyl (Dulcolax Supp) 10 mg Q48H PRN [place] CONSTIPATION Last administered on 21:23; Admin Dose 10 MG; Start 05/31/17 at 17:00 Ergocalciferol (Drisdol) 50,000 unit Q7D PO ; Start 05/31/17 at 17:00 Warfarin Sodium (Coumadin) 3 mg DAILY@17 PO Last administered on 06/02/17 17: 25; Admin Dose 3 MG; Start 06/01/17 at 17:00; Status Future Hold Multivitamins Therapeutic (Theragran) 1 tab DAILY PO Last administered on 09:33; Admin Dose 1 TAB; Start 06/02/17 at 09:00 Folic Acid (Folic Acid) 1 mg DAILY PO Last administered on 06/04/17 09:34; Admin Dose 1 MG; Start 06/02/17 at 09:00 Thiamine HCl 100 mg 100 mg DAILY PO Last administered on 06/04/17 09:34; Admin Dose 100 MG; Start 06/02/17 at 09:00 Vancomycin HCl/ Sodium Chloride (Vancocin/NS) 250 ml @ 83.333 mls/ hr Q24H IVPB Last administered on 06/04/17 11:26; Admin Dose 83.333 MLS/HR; Start at 11:00 Potassium Chloride (Klor-Con 20) 20 meq DAILY PO Last administered on 09:34; Admin Dose 20 MEQ; Start 06/03/17 at 09:00 Fondaparinux (Arixtra) 7.5 mg DAILY SC ; Start 06/05/17 at 09:00 PLACIDO COREA Jun 04, 2017 12:52
[2017-06-04] MEDS: FLUCONAZOLE 100 MG/NS (PMX) 50 ML IVPB SCH (13:25)
[2017-06-04] MEDS: DIGOXIN 500 MCG INJ IV SCH ×2 (13:25→19:43)
[2017-06-04 13:46] LABS: HEPARIN INDUCED PLATELET AB NEGATIVE (NEGATIVE)
--- NOTE | 2017-06-04 13:52 | CONS ---
Date/Time of Note Date/Time of Note DATE: 06/04/17 TIME: 13:50 Assessment/Plan Assessment/Plan Chief Complaint/Hosp Course Patient is alert sitting up in a chair she is febrile tachycardic but in no distress Temperature 101.3 heart rate 150 respirations 16 blood pressure 98/64 saturation 100 on 4 L Laboratory data H&H 12.2 and 37.5 BN 26 creatinine 0.87 microbiology: Urine culture growing Nina albicans Antibiotics: Vancomycin, meropenem, fluconazole Physical examination: Well-developed, fragile Spanish-speaking elderly woman who is alert in no distress. Head atraumatic normocephalic, sclera nonicteric. Neck is supple. Chest rise symmetrical breath sounds diminished basis, scattered crackles more on the left. Heart: S1, S2. Abdomen soft, bowel tones present. Patient is having left-sided pain on palpation as well as lower back pain. Extremities without cyanosis. Left upper extremity with trace edema. Assessment: 1. Sepsis with high fevers persistent leukocytosis and tachycardia 2. Left kidney hematoma versus abscess 3. Large left pleural effusion, possible underlying pneumonia 4. Bacteremia with blood culture on admission grew Bacillus species consistent with contaminant 4. Nina albicans UTI 5. Coronary artery disease with a history of mitral valve mechanical prosthesis and ejection fraction of 40% 6. History of permanent pacemaker 7. Allergy: Penicillin Plan: Clinically stable, will repeat cultures now, continue antibiotics await for thoracentesis, follow recommendations of consultants Discussed with patient /RN Problems: Consultation Date/Type/Reason Admit Date/Time May 25, 2017 at 00:06 Initial Consult Date 05/25/17 Type of Consultation: id Referring Provider: DUANE NGUYỄN MD Exam/Review of Systems Vital Signs Vitals Vital Signs Date Time Temp Pulse Resp B/P Pulse Ox O2 Delivery O2 Flow Rate FiO2 06/04/17 13:16 94 4.0 36 06/04/17 12:26 156 06/04/17 11:31 97.9 16 98/64 06/04/17 09:39 Nasal Cannula Intake and Output 06/03/17 06/03/17 06/04/17 15:00 23:00 07:00 Intake Total 250 ml 500 ml 400 ml Balance 250 ml 500 ml 400 ml Results Result Diagram: 06/04/1761806/04/1719 Results 24 hrs Laboratory Tests Test 06/04/17 06:19 Hemoglobin 12.2 Hematocrit 37.5 Prothrombin Time 17.7 H Prothrombin Time Ratio 1.4 INR International Normalized Ratio 1.45 Sodium Level 135 Potassium Level 3.7 Chloride Level 86 L Carbon Dioxide Level 39 H Anion Gap 14 Blood Urea Nitrogen 26 H Creatinine 0.87 Glucose Level 110 Calcium Level 7.1 L Total Bilirubin 0.3 Direct Bilirubin 0.00 Indirect Bilirubin 0.3 Aspartate Amino Transf (AST/SGOT) 123 H Alanine Aminotransferase (ALT/SGPT) 116 H Alkaline Phosphatase 141 H Total Protein 5.6 L Albumin 2.3 L Globulin 3.30 H Albumin/Globulin Ratio 0.69 Medications Medications Current Medications Lubiprostone (Amitiza) 24 mcg BID PO Last administered on 06/04/17 09:34; Admin Dose 24 MCG; Start 05/25/17 at 09:00 Nitroglycerin (Nitroglycerin (Sl Tab) 0.4 Mg) 0.4 tab PRN SL ; Start 05/25/17 at 06:00 Pantoprazole (Protonix Tab) 40 mg DAILY@06 PO Last administered on 06/04/17 05 :32; Admin Dose 40 MG; Start 05/26/17 at 06:00 Acetaminophen (Tylenol Tab) 650 mg Q6H PRN PO PAIN AND OR ELEVATED TEMP Last administered on 06/03/17 15:05; Admin Dose 650 MG; Start 05/25/17 at 06:30 Magnesium Oxide (Mag-Ox 400) 400 mg DAILY PO Last administered on 06/04/17 09: 34; Admin Dose 400 MG; Start 05/26/17 at 09:00 Guaifenesin/ Dextromethorphan (Robitussin Dm Liquid Cup) 5 ml Q4H PRN PO COUGH Last administered on 05/28/17 18:39; Admin Dose 5 ML; Start 05/25/17 at 15:00 Metoprolol Tartrate (Lopressor) 5 mg Q4H PRN IV HR>110 SBP>180mmhg Last administered on 06/01/17 17:11; Admin Dose 5 MG; Start 05/25/17 at 15:30 Lactobacillus Acidophilus/ Rhamnosus (Culturelle) 1 cap DAILY PO Last administered on 06/04/17 09:34; Admin Dose 1 CAP; Start 05/27/17 at 09:00 Atenolol (Tenormin) 25 mg BID PO Last administered on 06/04/17 09:34; Admin Dose 25 MG; Start 05/26/17 at 21:00; Status Future hold Polyethylene Glycol (Miralax) 8.5 gm DAILY PO Last administered on 06/04/17 09 :33; Admin Dose 8.5 GM; Start 05/29/17 at 09:00 Hydromorphone HCl 0.5 mg 0.5 mg Q6H PRN IV PAIN Last administered on 06/02/17 21:32; Admin Dose 0.5 MG; Start 05/29/17 at 01:00 Fluconazole/ Sodium Chloride 50 ml @ 50 mls/hr Q24H IVPB Last administered on 13:25; Admin Dose 50 MLS/HR; Start 05/30/17 at 12:30 Meropenem/Sodium Chloride (Merrem 1 Gm/50 ml (Pmx)) 50 ml @ 200 mls/hr Q12H IVPB Last administered on 06/04/17 02:21; Admin Dose 200 MLS/HR; Start at 03:00 Diltiazem HCl (Cardizem) 30 mg Q8 PO Last administered on 06/04/17 11:40; Admin Dose 30 MG; Start 05/31/17 at 22:00; Status Future hold Bisacodyl (Dulcolax Supp) 10 mg Q48H PRN [place] CONSTIPATION Last administered on 21:23; Admin Dose 10 MG; Start 05/31/17 at 17:00 Ergocalciferol (Drisdol) 50,000 unit Q7D PO ; Start 05/31/17 at 17:00 Warfarin Sodium (Coumadin) 3 mg DAILY@17 PO Last administered on 06/02/17 17: 25; Admin Dose 3 MG; Start 06/01/17 at 17:00; Status Future Hold Multivitamins Therapeutic (Theragran) 1 tab DAILY PO Last administered on 09:33; Admin Dose 1 TAB; Start 06/02/17 at 09:00 Folic Acid (Folic Acid) 1 mg DAILY PO Last administered on 06/04/17 09:34; Admin Dose 1 MG; Start 06/02/17 at 09:00 Thiamine HCl 100 mg 100 mg DAILY PO Last administered on 06/04/17 09:34; Admin Dose 100 MG; Start 06/02/17 at 09:00 Vancomycin HCl/ Sodium Chloride (Vancocin/NS) 250 ml @ 83.333 mls/ hr Q24H IVPB Last administered on 06/04/17 11:26; Admin Dose 83.333 MLS/HR; Start at 11:00 Potassium Chloride (Klor-Con 20) 20 meq DAILY PO Last administered on 09:34; Admin Dose 20 MEQ; Start 06/03/17 at 09:00 Fondaparinux (Arixtra) 7.5 mg DAILY SC ; Start 06/05/17 at 09:00 Digoxin (Digoxin) 250 mcg Q6H IV Last administered on 06/04/17 13:25; Admin Dose 250 MCG; Start 06/04/17 at 13:00; Stop 06/04/17 at 19:01 BALDOMERO STARKS NP Jun 04, 2017 13:52
--- NOTE | 2017-06-04 14:28 | RADRPT ---
PROCEDURE: Renal US. CLINICAL INDICATION: Left flank pain. TECHNIQUE: Multiple sonographic images of the kidneys and urinary bladder were obtained. The imag es were reviewed on a PACS workstation. COMPARISON: No prior studies are available for comparison. FINDINGS: The right kidney measures 9.3 cm. The left kidney measures 9.7 cm. There is no renal mass. There is no right hydronephrosis. There is mild left hydronephrosis. No obstructing lesion is visu alized. There is no renal calculus. Renal parenchymal thickness is normal bilaterally. Echogenicity is normal bilaterally. The perirenal regions are normal with no fluid collection or mass. The urinary bladder is unremarkable. IMPRESSION: 1. Mild left hydronephrosis. 2. Otherwise normal renal ultrasound. RPTAT: QQ .Isiah Lamar MD, Date Time Electronically viewed and signed by .Isiah Lamar MD, on 06/04/2017 14:28 .R/
[2017-06-04] MEDS ORDERED: LIDOCAINE 1% (MPF) 5 ML VIAL ONE (14:32)
--- NOTE | 2017-06-04 14:41 | RADRPT ---
PROCEDURE: US guided left thoracentesis. CLINICAL INDICATION: Shortness of breath. Left pleural effusion. TECHNIQUE: Prior to the procedure, informed consent was obtained. The risks, benefits, and alternatives were e xplained to the patient or the patient's family, including but not limited to bleeding, infection, p ain, visceral or vascular damage, shock, pneumothorax, chest tube placement, air embolism, and . The patient or the patient's family understood the risks and the alternatives and wished to proce ed with the study. Informed written consent was obtained. A procedural pause was performed. The patient's name, date of , and procedure to be performed were verified. Ultrasound of the left hemithorax was performed in the axial and sagittal planes. A left pleural eff usion is noted. Utilizing ultrasound guidance, optimal location for entry to the pleural cavity was ascertained. The overlying skin was prepped and draped in the usual sterile fashion. Approximately 10 ml of 1% Xylocaine was injected locally for pain control. Using ultrasound guidance, a 5-Malay Yueh catheter was introduced into the left pleural space without difficulty. Fluid was aspirated. COMPARISON: Chest x-ray dated 06/03/2017. FINDINGS: Initial ultrasound demonstrates fluid in the left pleural space. Approximately 0.400 liters of sero us fluid was aspirated and sent to the laboratory. IMPRESSION: 1. Satisfactory ultrasound-guided left thoracentesis. RPTAT: QQ .Isiah Lamar MD, Date Time Electronically viewed and signed by .Isiah Lamar MD, on 06/04/2017 14:40 .R/
--- NOTE | 2017-06-04 14:49 | CONS ---
Date/Time of Note Date/Time of Note DATE: 06/04/17 TIME: 14:48 Consult Date/Type/Reason Admit Date/Time May 25, 2017 at 00:06 Initial Consult Date 06/02/17 Type of Consultation: Pulmonary Ordering Provider: DUANE NGUYỄN MD Subjective Status post thoracentesis 400 cc removed from left pleural space Objective Vital Signs Date Time Temp Pulse Resp B/P Pulse Ox O2 Delivery O2 Flow Rate FiO2 06/04/17 13:16 94 4.0 36 06/04/17 12:26 156 06/04/17 11:31 97.9 16 98/64 06/04/17 09:39 Nasal Cannula Intake and Output 06/03/17 06/03/17 06/04/17 15:00 23:00 07:00 Intake Total 250 ml 500 ml 400 ml Balance 250 ml 500 ml 400 ml Exam GENERAL: Elderly Senegalese-speaking lady comfortable at rest no acute distress VITAL SIGNS: per chart NECK: Supple. No JVD or lymphadenopathy. CARDIAC EXAM: S1, S2. No added sounds or murmurs. CHEST: Diminished air entry left lung base. ABDOMEN: Soft, nontender. No guarding or rebound. EXTREMITIES: No cyanosis, clubbing or edema. NEUROLOGIC: Generalized weakness. No focal deficits. Results/Medications Result Diagram: 06/04/1761806/04/17 06 Results 24 hrs Laboratory Tests Test 06/04/17 06:19 Hemoglobin 12.2 Hematocrit 37.5 Prothrombin Time 17.7 H Prothrombin Time Ratio 1.4 INR International Normalized Ratio 1.45 Sodium Level 135 Potassium Level 3.7 Chloride Level 86 L Carbon Dioxide Level 39 H Anion Gap 14 Blood Urea Nitrogen 26 H Creatinine 0.87 Glucose Level 110 Calcium Level 7.1 L Total Bilirubin 0.3 Direct Bilirubin 0.00 Indirect Bilirubin 0.3 Aspartate Amino Transf (AST/SGOT) 123 H Alanine Aminotransferase (ALT/SGPT) 116 H Alkaline Phosphatase 141 H Total Protein 5.6 L Albumin 2.3 L Globulin 3.30 H Albumin/Globulin Ratio 0.69 Medications Current Medications Lubiprostone (Amitiza) 24 mcg BID PO Last administered on 06/04/17t 09:34; Admin Dose 24 MCG; Start 05/25/17 at 09:00 Nitroglycerin (Nitroglycerin (Sl Tab) 0.4 Mg) 0.4 tab PRN SL ; Start 05/25/17 at 06:00 Pantoprazole (Protonix Tab) 40 mg DAILY@06 PO Last administered on 06/04/17 05 :32; Admin Dose 40 MG; Start 05/26/17 at 06:00 Acetaminophen (Tylenol Tab) 650 mg Q6H PRN PO PAIN AND OR ELEVATED TEMP Last administered on 06/03/17 15:05; Admin Dose 650 MG; Start 05/25/17 at 06:30 Magnesium Oxide (Mag-Ox 400) 400 mg DAILY PO Last administered on 06/04/17 09: 34; Admin Dose 400 MG; Start 05/26/17 at 09:00 Guaifenesin/ Dextromethorphan (Robitussin Dm Liquid Cup) 5 ml Q4H PRN PO COUGH Last administered on 05/28/17 18:39; Admin Dose 5 ML; Start 05/25/17 at 15:00 Metoprolol Tartrate (Lopressor) 5 mg Q4H PRN IV HR>110 SBP>180mmhg Last administered on 06/01/17 17:11; Admin Dose 5 MG; Start 05/25/17 at 15:30 Lactobacillus Acidophilus/ Rhamnosus (Culturelle) 1 cap DAILY PO Last administered on 06/04/17 09:34; Admin Dose 1 CAP; Start 05/27/17 at 09:00 Atenolol (Tenormin) 25 mg BID PO Last administered on 06/04/17 09:34; Admin Dose 25 MG; Start 05/26/17 at 21:00; Status Future hold Polyethylene Glycol (Miralax) 8.5 gm DAILY PO Last administered on 06/04/17 09 :33; Admin Dose 8.5 GM; Start 05/29/17 at 09:00 Hydromorphone HCl 0.5 mg 0.5 mg Q6H PRN IV PAIN Last administered on 06/02/17 21:32; Admin Dose 0.5 MG; Start 05/29/17 at 01:00 Fluconazole/ Sodium Chloride 50 ml @ 50 mls/hr Q24H IVPB Last administered on 13:25; Admin Dose 50 MLS/HR; Start 05/30/17 at 12:30 Meropenem/Sodium Chloride (Merrem 1 Gm/50 ml (Pmx)) 50 ml @ 200 mls/hr Q12H IVPB Last administered on 06/04/17 02:21; Admin Dose 200 MLS/HR; Start at 03:00 Diltiazem HCl (Cardizem) 30 mg Q8 PO Last administered on 06/04/17 11:40; Admin Dose 30 MG; Start 05/31/17 at 22:00; Status Future hold Bisacodyl (Dulcolax Supp) 10 mg Q48H PRN ME CONSTIPATION Last administered on 21:23; Admin Dose 10 MG; Start 05/31/17 at 17:00 Ergocalciferol (Drisdol) 50,000 unit Q7D PO ; Start 05/31/17 at 17:00 Warfarin Sodium (Coumadin) 3 mg DAILY@17 PO Last administered on 06/02/17 17: 25; Admin Dose 3 MG; Start 06/01/17 at 17:00; Status Future Hold Multivitamins Therapeutic (Theragran) 1 tab DAILY PO Last administered on 09:33; Admin Dose 1 TAB; Start 06/02/17 at 09:00 Folic Acid (Folic Acid) 1 mg DAILY PO Last administered on 06/04/17 09:34; Admin Dose 1 MG; Start 06/02/17 at 09:00 Thiamine HCl 100 mg 100 mg DAILY PO Last administered on 06/04/17 09:34; Admin Dose 100 MG; Start 06/02/17 at 09:00 Vancomycin HCl/ Sodium Chloride (Vancocin/NS) 250 ml @ 83.333 mls/ hr Q24H IVPB Last administered on 06/04/17 11:26; Admin Dose 83.333 MLS/HR; Start at 11:00 Potassium Chloride (Klor-Con 20) 20 meq DAILY PO Last administered on 09:34; Admin Dose 20 MEQ; Start 06/03/17 at 09:00 Fondaparinux (Arixtra) 7.5 mg DAILY SC ; Start 06/05/17 at 09:00 Digoxin (Digoxin) 250 mcg Q6H IV Last administered on 06/04/17 13:25; Admin Dose 250 MCG; Start 06/04/17 at 13:00; Stop 06/04/17 at 19:01 Assessment/Plan Chief Complaint/Hosp Course Assessment 1. Left renal hematoma surrounding effusion and ascites. Currently being evaluated by urology. Renal ultrasound noted 2. Left pleural effusion with compressive atelectasis unclear etiology possibly secondary to underlying cardiac disease versus pneumonia. Status post thoracentesis pleural fluid studies is pending 3. Recent bacteremia continues antibiotics per infectious diseases 4. Supratherapeutic INR on admission 5. Evidence of contraction alkalosis. Recommendation 1. Await pleural fluid studies 2. Continue urology recommendations 3. O2 as needed Encourage out of bed if tolerated Problems: JERZY HARDY MD, [facility] Jun 04, 2017 14:49
--- NOTE | 2017-06-04 15:22 | RADRPT ---
PROCEDURE: XR Chest. CLINICAL INDICATION: Shortness of breath. Post left thoracentesis. TECHNIQUE: Single frontal view. COMPARISON: 06/03/2017. FINDINGS: There is mild right basilar atelectasis and moderate left basilar atelectasis or pneumonia, unchange d on the right and improved on the left. The lungs are otherwise clear. The heart is enlarged. 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 Sternal wires and mitral valve replacement are noted. There is calcification in the aorta consistent with atheroscler osis. There is a small right pleural effusion and small left pleural effusion. The left pleural effusion is now smaller following left thoracentesis. There is no pneumothorax. IMPRESSION: 1. Smaller left pleural effusion and improved appearance of the left lung. 2. No pneumothorax following left thoracentesis. RPTAT: QQ .Isiah Lamar MD, MD Date Time Electronically viewed and signed by .Isiah Lamar MD, MD on 06/04/2017 15:21 .R/
[2017-06-04] MEDS: ACETAMINOPHEN 325 MG TAB PO PRN (16:00)
[2017-06-04] MEDS ORDERED: WARFARIN 7.5 MG TAB PO SCH (17:00)
[2017-06-04 17:12] LABS: FLD CLARITY HAZY; FLD COLOR YELLOW; FLD TYPE THORACENTHESIS
[2017-06-04 17:13] LABS: FLD WBC 4515 /cmm
[2017-06-04 17:56] LABS: FLUID TOTAL PROTEIN 2.2 g/dl
[2017-06-04 17:57] LABS: FLUID TYPE THORACENTESIS FLUID
[2017-06-04 18:01] LABS: FLUID GLUCOSE 92 mg/dl
[2017-06-04 18:32] LABS: FLUID NEUTROPHILS 86 %; FLUID RBC EST 1+
[2017-06-04 18:33] LABS: FLUID LYMPHOCYTES 5 %; FLUID MONOCYTES 9 %
[2017-06-04] MEDS: LEVALBUTEROL (NEB) 0.63 MG/3 ML AMP HHN SCH (19:46)
--- NOTE | 2017-06-04 20:16 | PN ---
Date/Time of Note Date/Time of Note DATE: 06/04/17 TIME: 20:09 Assessment/Plan VTE Prophylaxis VTE Prophylaxis Intervention: ambulation Lines/Catheters [facility] Saline Lock Urinary Cath still in place: No Assessment/Plan Chief Complaint/Hosp Course Patient has perinephric fluid collection which is most likely a hematoma. Renal ultrasound showed mild left hydronephrosis. Her H&H are stable Continue present treatment Problems: Subjective 24 Hr Interval Summary Constitutional: no complaints ENT: no complaints Respiratory: no complaints, No cough Cardiovascular: No chest pain Gastrointestinal: No nausea, No vomiting Genitourinary: flank pain, No bleeding, No hematuria Musculoskeletal: back pain Skin: no complaints Neurologic: no complaints Endocrine: no complaints Exam/Review of Systems Vital Signs Vitals Vital Signs Date Time Temp Pulse Resp B/P Pulse Ox O2 Delivery O2 Flow Rate FiO2 06/04/17 20:05 97.9 73 20 136/58 98 06/04/17 19:51 3.0 06/04/17 19:48 Nasal Cannula 06/04/17 18:05 36 Intake and Output 06/03/17 06/03/17 06/04/17 15:00 23:00 07:00 Intake Total 250 ml 500 ml 400 ml Balance 250 ml 500 ml 400 ml Exam Constitutional: alert Psych: no complaints Eyes: nl conjunctiva ENMT: nl external ears & nose Neck: supple Respiratory: normal air movement Gastrointestinal: soft Genitourinary - Female: CVA tenderness Extremities: No edema Skin: nl turgor Results Patient had left thoracentesis and 400 mL drained and sent to the lab Renal ultrasound showed mild left hydronephrosis Result Diagram: 06/04/17 0619 06/04/17 0619 Results 24 hrs Laboratory Tests Test 06/04/17 06:19 06/04/17 14:20 Hemoglobin 12.2 Hematocrit 37.5 Prothrombin Time 17.7 H Prothrombin Time Ratio 1.4 INR International Normalized Ratio 1.45 Sodium Level 135 Potassium Level 3.7 Chloride Level 86 L Carbon Dioxide Level 39 H Anion Gap 14 Blood Urea Nitrogen 26 H Creatinine 0.87 Glucose Level 110 Calcium Level 7.1 L Total Bilirubin 0.3 Direct Bilirubin 0.00 Indirect Bilirubin 0.3 Aspartate Amino Transf (AST/SGOT) 123 H Alanine Aminotransferase (ALT/SGPT) 116 H Alkaline Phosphatase 141 H Total Protein 5.6 L Albumin 2.3 L Globulin 3.30 H Albumin/Globulin Ratio 0.69 Body Fluid Type THORACENTESIS FLUID Body Fluid Volume 250.0 Body Fluid Color YELLOW Body Fluid Appearance HAZY Body Fluid WBC 4515 Body Fluid RBC 1+ Body Fluid Neutrophils % 86 Body Fluid Lymphocytes (%) 5 Body Fluid Monocytes % 9 Body Fluid Glucose 92 Body Fluid Total Protein 2.2 Body Fluid Lactate Dehydrogenase Medications Medications Current Medications Lubiprostone (Amitiza) 24 mcg BID PO Last administered on 06/04/17 09:34; Admin Dose 24 MCG; Start 05/25/17 at 09:00 Nitroglycerin (Nitroglycerin (Sl Tab) 0.4 Mg) 0.4 tab PRN SL ; Start 05/25/17 at 06:00 Pantoprazole (Protonix Tab) 40 mg DAILY@06 PO Last administered on 06/04/17 05 :32; Admin Dose 40 MG; Start 05/26/17 at 06:00 Acetaminophen (Tylenol Tab) 650 mg Q6H PRN PO PAIN AND OR ELEVATED TEMP Last administered on 06/04/17 16:00; Admin Dose 650 MG; Start 05/25/17 at 06:30 Magnesium Oxide (Mag-Ox 400) 400 mg DAILY PO Last administered on 06/04/17 09: 34; Admin Dose 400 MG; Start 05/26/17 at 09:00 Guaifenesin/ Dextromethorphan (Robitussin Dm Liquid Cup) 5 ml Q4H PRN PO COUGH Last administered on 05/28/17 18:39; Admin Dose 5 ML; Start 05/25/17 at 15:00 Metoprolol Tartrate (Lopressor) 5 mg Q4H PRN IV HR>110 SBP>180mmhg Last administered on 06/01/17 17:11; Admin Dose 5 MG; Start 05/25/17 at 15:30 Lactobacillus Acidophilus/ Rhamnosus (Culturelle) 1 cap DAILY PO Last administered on 06/04/17 09:34; Admin Dose 1 CAP; Start 05/27/17 at 09:00 Atenolol (Tenormin) 25 mg BID PO Last administered on 06/04/17 09:34; Admin Dose 25 MG; Start 05/26/17 at 21:00; Status Future hold Polyethylene Glycol (Miralax) 8.5 gm DAILY PO Last administered on 06/04/17 09 :33; Admin Dose 8.5 GM; Start 05/29/17 at 09:00 Hydromorphone HCl 0.5 mg 0.5 mg Q6H PRN IV PAIN Last administered on 06/02/17 21:32; Admin Dose 0.5 MG; Start 05/29/17 at 01:00 Fluconazole/ Sodium Chloride 50 ml @ 50 mls/hr Q24H IVPB Last administered on 13:25; Admin Dose 50 MLS/HR; Start 05/30/17 at 12:30 Meropenem/Sodium Chloride (Merrem 1 Gm/50 ml (Pmx)) 50 ml @ 200 mls/hr Q12H IVPB Last administered on 06/04/17 15:17; Admin Dose 200 MLS/HR; Start at 03:00 Diltiazem HCl (Cardizem) 30 mg Q8 PO Last administered on 06/04/17 11:40; Admin Dose 30 MG; Start 05/31/17 at 22:00; Status Future hold Bisacodyl (Dulcolax Supp) 10 mg Q48H PRN [place] CONSTIPATION Last administered on 21:23; Admin Dose 10 MG; Start 05/31/17 at 17:00 Ergocalciferol (Drisdol) 50,000 unit Q7D PO ; Start 05/31/17 at 17:00 Multivitamins Therapeutic (Theragran) 1 tab DAILY PO Last administered on 09:33; Admin Dose 1 TAB; Start 06/02/17 at 09:00 Folic Acid (Folic Acid) 1 mg DAILY PO Last administered on 06/04/17 09:34; Admin Dose 1 MG; Start 06/02/17 at 09:00 Thiamine HCl 100 mg 100 mg DAILY PO Last administered on 06/04/17 09:34; Admin Dose 100 MG; Start 06/02/17 at 09:00 Vancomycin HCl/ Sodium Chloride (Vancocin/NS) 250 ml @ 83.333 mls/ hr Q24H IVPB Last administered on 06/04/17 11:26; Admin Dose 83.333 MLS/HR; Start at 11:00 Potassium Chloride (Klor-Con 20) 20 meq DAILY PO Last administered on 09:34; Admin Dose 20 MEQ; Start 06/03/17 at 09:00 Warfarin Sodium (Coumadin) 7.5 mg DAILY@17 PO Last administered on 06/04/17 17 :45; Admin Dose 7.5 MG; Start 06/04/17 at 17:00 Fondaparinux (Arixtra) 7.5 mg DAILY SC ; Start 06/05/17 at 09:00 ANA WILKINSON MD Jun 04, 2017 20:16
--- NOTE | 2017-06-04 22:40 | PN ---
Date/Time of Note Date/Time of Note DATE: 06/04/17 TIME: 22:39 Assessment/Plan VTE Prophylaxis VTE Prophylaxis Intervention: other Lines/Catheters IV Catheter Type (from Nrs): Saline Lock Urinary Cath still in place: No Reason Cath still needed: other (indicate) Assessment/Plan Chief Complaint/Hosp Course SEPSIS AFIB HTN ASHD hyponatremia PEURAL EFFUSION UTI LOW EF vicki platelet better PLAN LASIX ANTIBIOTIC antibiotic BUMEX THORACENTESIS kcl Problems: Subjective 24 Hr Interval Summary ENT: no complaints Respiratory: no complaints Cardiovascular: no complaints Exam/Review of Systems Vital Signs Vitals Vital Signs Date Time Temp Pulse Resp B/P Pulse Ox O2 Delivery O2 Flow Rate FiO2 06/04/17 21:31 Nasal Cannula 3.0 06/04/17 20:23 86 06/04/17 20:05 97.9 20 136/58 98 06/04/17 18:05 36 Intake and Output 06/03/17 06/03/17 06/04/17 15:00 23:00 07:00 Intake Total 250 ml 500 ml 400 ml Balance 250 ml 500 ml 400 ml Exam Neck: supple Respiratory: clear to auscultation Cardiovascular: regular rate and rhythm Gastrointestinal: soft Results Result Diagram: 06/04/17 0619 06/04/17 0619 Results 24 hrs Laboratory Tests Test 06/04/17 06:19 06/04/17 14:20 Hemoglobin 12.2 Hematocrit 37.5 Prothrombin Time 17.7 H Prothrombin Time Ratio 1.4 INR International Normalized Ratio 1.45 Sodium Level 135 Potassium Level 3.7 Chloride Level 86 L Carbon Dioxide Level 39 H Anion Gap 14 Blood Urea Nitrogen 26 H Creatinine 0.87 Glucose Level 110 Calcium Level 7.1 L Total Bilirubin 0.3 Direct Bilirubin 0.00 Indirect Bilirubin 0.3 Aspartate Amino Transf (AST/SGOT) 123 H Alanine Aminotransferase (ALT/SGPT) 116 H Alkaline Phosphatase 141 H Total Protein 5.6 L Albumin 2.3 L Globulin 3.30 H Albumin/Globulin Ratio 0.69 Body Fluid Type THORACENTESIS FLUID Body Fluid Volume 250.0 Body Fluid Color YELLOW Body Fluid Appearance HAZY Body Fluid WBC 4515 Body Fluid RBC 1+ Body Fluid Neutrophils % 86 Body Fluid Lymphocytes (%) 5 Body Fluid Monocytes % 9 Body Fluid Glucose 92 Body Fluid Total Protein 2.2 Body Fluid Lactate Dehydrogenase Medications Medications Current Medications Lubiprostone (Amitiza) 24 mcg BID PO Last administered on 06/04/17 20:34; Admin Dose 24 MCG; Start 05/25/17 at 09:00 Nitroglycerin (Nitroglycerin (Sl Tab) 0.4 Mg) 0.4 tab PRN SL ; Start 05/25/17 at 06:00 Pantoprazole (Protonix Tab) 40 mg DAILY@06 PO Last administered on 06/04/17 05 :32; Admin Dose 40 MG; Start 05/26/17 at 06:00 Acetaminophen (Tylenol Tab) 650 mg Q6H PRN PO PAIN AND OR ELEVATED TEMP Last administered on 06/04/17 16:00; Admin Dose 650 MG; Start 05/25/17 at 06:30 Magnesium Oxide (Mag-Ox 400) 400 mg DAILY PO Last administered on 06/04/17 09: 34; Admin Dose 400 MG; Start 05/26/17 at 09:00 Guaifenesin/ Dextromethorphan (Robitussin Dm Liquid Cup) 5 ml Q4H PRN PO COUGH Last administered on 05/28/17 18:39; Admin Dose 5 ML; Start 05/25/17 at 15:00 Metoprolol Tartrate (Lopressor) 5 mg Q4H PRN IV HR>110 SBP>180mmhg Last administered on 06/01/17 17:11; Admin Dose 5 MG; Start 05/25/17 at 15:30 Lactobacillus Acidophilus/ Rhamnosus (Culturelle) 1 cap DAILY PO Last administered on 06/04/17 09:34; Admin Dose 1 CAP; Start 05/27/17 at 09:00 Atenolol (Tenormin) 25 mg BID PO Last administered on 06/04/17 20:33; Admin Dose 25 MG; Start 05/26/17 at 21:00; Status Future hold Polyethylene Glycol (Miralax) 8.5 gm DAILY PO Last administered on 06/04/17 09 :33; Admin Dose 8.5 GM; Start 05/29/17 at 09:00 Hydromorphone HCl 0.5 mg 0.5 mg Q6H PRN IV PAIN Last administered on 06/02/17 21:32; Admin Dose 0.5 MG; Start 05/29/17 at 01:00 Fluconazole/ Sodium Chloride 50 ml @ 50 mls/hr Q24H IVPB Last administered on 13:25; Admin Dose 50 MLS/HR; Start 05/30/17 at 12:30 Meropenem/Sodium Chloride (Merrem 1 Gm/50 ml (Pmx)) 50 ml @ 200 mls/hr Q12H IVPB Last administered on 06/04/17 15:17; Admin Dose 200 MLS/HR; Start at 03:00 Diltiazem HCl (Cardizem) 30 mg Q8 PO Last administered on 06/04/17 20:34; Admin Dose 30 MG; Start 05/31/17 at 22:00; Status Future hold Bisacodyl (Dulcolax Supp) 10 mg Q48H PRN MS CONSTIPATION Last administered on 21:23; Admin Dose 10 MG; Start 05/31/17 at 17:00 Ergocalciferol (Drisdol) 50,000 unit Q7D PO ; Start 05/31/17 at 17:00 Multivitamins Therapeutic (Theragran) 1 tab DAILY PO Last administered on 09:33; Admin Dose 1 TAB; Start 06/02/17 at 09:00 Folic Acid (Folic Acid) 1 mg DAILY PO Last administered on 06/04/17 09:34; Admin Dose 1 MG; Start 06/02/17 at 09:00 Thiamine HCl 100 mg 100 mg DAILY PO Last administered on 06/04/17 09:34; Admin Dose 100 MG; Start 06/02/17 at 09:00 Vancomycin HCl/ Sodium Chloride (Vancocin/NS) 250 ml @ 83.333 mls/ hr Q24H IVPB Last administered on 06/04/17 11:26; Admin Dose 83.333 MLS/HR; Start at 11:00 Potassium Chloride (Klor-Con 20) 20 meq DAILY PO Last administered on 09:34; Admin Dose 20 MEQ; Start 06/03/17 at 09:00 Warfarin Sodium (Coumadin) 7.5 mg DAILY@17 PO Last administered on 06/04/17 17 :45; Admin Dose 7.5 MG; Start 06/04/17 at 17:00 Fondaparinux (Arixtra) 7.5 mg DAILY SC ; Start 06/05/17 at 09:00 DUANE NGUYỄN MD Jun 04, 2017 22:40
[2017-06-05] VITALS (13 sets, daily range): BP systolic 95–128; BP diastolic 51–65; PULSE 75–82; RESP 16–20
[2017-06-05] MEDS: LEVALBUTEROL (NEB) 0.63 MG/3 ML AMP HHN SCH ×4 (01:49→20:41)
[2017-06-05] MEDS: MEROPENEM 1 GM/50ML(PMX) 50 ML IVPB SCH ×2 (03:10→15:00)
[2017-06-05] MEDS: FUROSEMIDE 40 MG INJ IV SCH (03:12)
[2017-06-05] MEDS: PANTOPRAZOLE (EC) 40 MG TAB PO SCH (06:14)
[2017-06-05] MEDS: LEVOTHYROXINE 75 MCG TAB PO SCH (06:14)
[2017-06-05] MEDS: DILTIAZEM 30 MG TAB PO SCH ×3 (06:14→21:44)
[2017-06-05 08:15] LABS: HEMATOCRIT 37.3 % (37.0-47.0); HEMOGLOBIN 12.4 g/dl (12.0-16.0)
[2017-06-05 08:33] LABS: INR 2.16; PROTIME 24.3 Sec (12.2-14.2); PT RATIO 1.9
[2017-06-05] MEDS: THIAMINE 100 MG TAB PO SCH (08:41)
[2017-06-05] MEDS: POTASSIUM CHLORIDE (SR) 20 MEQ TAB PO SCH (08:41)
[2017-06-05] MEDS: LACTOBACILLUS RHAMNOSUS CAP PO SCH (08:41)
[2017-06-05] MEDS: MAGNESIUM OXIDE 400 MG TAB PO SCH (08:41)
[2017-06-05] MEDS: FOLIC ACID 1 MG TAB PO SCH (08:41)
[2017-06-05] MEDS: LUBIPROSTONE 24 MCG CAP PO SCH ×2 (08:41→21:46)
[2017-06-05] MEDS: POLYETHYLENE GLYCOL 17 GM PACKET PO SCH (08:42)
[2017-06-05] MEDS: ATENOLOL 25 MG TAB PO SCH ×2 (08:42→21:00)
[2017-06-05] MEDS: MULTIVITAMINS THERAPEUTIC TAB PO SCH (08:42)
[2017-06-05] MEDS: FONDAPARINUX 7.5 MG SYG SC SCH (08:46)
[2017-06-05] MEDS ORDERED: FONDAPARINUX 2.5 MG SYG SC SCH (09:00)
--- NOTE | 2017-06-05 09:48 | CONS ---
Date/Time of Note Date/Time of Note DATE: 06/05/17 TIME: 09:41 Assessment/Plan Assessment/Plan Chief Complaint/Hosp Course 76 yo female on Coumadin admitted for TIA, who was found to have partial thrombosis of internal jugular vein. # Thrombosis while on Coumadin - Given that patient has a prosthetic mitral valve, her anticoagulation options are limited to coumadin but this was on hold because of supratherapeutic INR. Especially since this (IJ clot) is a relatively asymptomatic partial thrombosis, I do not think we need to change anticoagulation at this time. - I would recommend to keep the INR between 2.5-3.5. Given INR was >4 and urology concern for perinephric bleed., patient given one time dose of vit K low dose on 05/31/17. Patient restarted on 3 mg coumadin 06/01 when INR subtherapeutic, continue 3 mg dose as patient supratherapeutic on 4 mg dose and takes 3-5 days to see effect of coumadin. Now INR 2.16. - patient on fondaparinux while INR subtherapeutic for a minimum of 5 days and until INR therapeutic for 2 days. HIT screen negative. - Repeat renal US 06/04/17 showed 1. Mild left hydronephrosis. 2. Otherwise normal renal ultrasound. hgb is fairly stable ~12 and will follow # UTI -continue antibiotics #Ischemic Cardiomyopathy -management per cardiology Problems: Consultation Date/Type/Reason Admit Date/Time May 25, 2017 at 00:06 Initial Consult Date 05/30/17 Type of Consultation: Hematology Referring Provider: DUANE NGUYỄN MD 24 HR Interval Summary Free Text/Dictation No complaints, no bleeding. Status post thoracentesis yesterday with 400 cc removed. Exam/Review of Systems Vital Signs Vitals Vital Signs Date Time Temp Pulse Resp B/P Pulse Ox O2 Delivery O2 Flow Rate FiO2 06/05/17 08:20 3.0 06/05/17 08:20 97 Nasal Cannula 06/05/17 08:14 75 06/05/17 07:18 98.6 18 95/51 06/04/17 18:05 36 Intake and Output 06/04/17 06/04/17 06/05/17 15:00 23:00 07:00 Intake Total 750 ml 290 ml Balance 750 ml 290 ml Exam Constitutional: alert, oriented Psych: nl mood/affect Eyes: nl conjunctiva Neck: supple Respiratory: normal air movement Results Result Diagram: 06/05/17 0728 06/04/17 0619 Results 24 hrs Laboratory Tests Test 06/04/17 14:20 06/05/17 07:28 Body Fluid Type THORACENTESIS FLUID Body Fluid Volume 250.0 Body Fluid Color YELLOW Body Fluid Appearance HAZY Body Fluid WBC 4515 Body Fluid RBC 1+ Body Fluid Neutrophils % 86 Body Fluid Lymphocytes (%) 5 Body Fluid Monocytes % 9 Body Fluid Glucose 92 Body Fluid Total Protein 2.2 Body Fluid Lactate Dehydrogenase Hemoglobin 12.4 Hematocrit 37.3 Prothrombin Time 24.3 #H Prothrombin Time Ratio 1.9 INR International Normalized Ratio 2.16 Medications Medications Current Medications Lubiprostone (Amitiza) 24 mcg BID PO Last administered on 06/05/17 08:41; Admin Dose 24 MCG; Start 05/25/17 at 09:00 Nitroglycerin (Nitroglycerin (Sl Tab) 0.4 Mg) 0.4 tab PRN SL ; Start 05/25/17 at 06:00 Pantoprazole (Protonix Tab) 40 mg DAILY@06 PO Last administered on 06/05/17 06 :14; Admin Dose 40 MG; Start 05/26/17 at 06:00 Acetaminophen (Tylenol Tab) 650 mg Q6H PRN PO PAIN AND OR ELEVATED TEMP Last administered on 06/04/17 16:00; Admin Dose 650 MG; Start 05/25/17 at 06:30 Magnesium Oxide (Mag-Ox 400) 400 mg DAILY PO Last administered on 06/05/17 08: 41; Admin Dose 400 MG; Start 05/26/17 at 09:00 Guaifenesin/ Dextromethorphan (Robitussin Dm Liquid Cup) 5 ml Q4H PRN PO COUGH Last administered on 05/28/17 18:39; Admin Dose 5 ML; Start 05/25/17 at 15:00 Metoprolol Tartrate (Lopressor) 5 mg Q4H PRN IV HR>110 SBP>180mmhg Last administered on 06/01/17 17:11; Admin Dose 5 MG; Start 05/25/17 at 15:30 Lactobacillus Acidophilus/ Rhamnosus (Culturelle) 1 cap DAILY PO Last administered on 06/05/17 08:41; Admin Dose 1 CAP; Start 05/27/17 at 09:00 Atenolol (Tenormin) 25 mg BID PO Last administered on 06/04/17 20:33; Admin Dose 25 MG; Start 05/26/17 at 21:00; Status Future hold Polyethylene Glycol (Miralax) 8.5 gm DAILY PO Last administered on 06/05/17 08 :42; Admin Dose 8.5 GM; Start 05/29/17 at 09:00 Hydromorphone HCl 0.5 mg 0.5 mg Q6H PRN IV PAIN Last administered on 06/02/17 21:32; Admin Dose 0.5 MG; Start 05/29/17 at 01:00 Fluconazole/ Sodium Chloride 50 ml @ 50 mls/hr Q24H IVPB Last administered on 13:25; Admin Dose 50 MLS/HR; Start 05/30/17 at 12:30 Meropenem/Sodium Chloride (Merrem 1 Gm/50 ml (Pmx)) 50 ml @ 200 mls/hr Q12H IVPB Last administered on 06/05/17 03:10; Admin Dose 200 MLS/HR; Start at 03:00 Diltiazem HCl (Cardizem) 30 mg Q8 PO Last administered on 06/05/17 06:14; Admin Dose 30 MG; Start 05/31/17 at 22:00; Status Future hold Bisacodyl (Dulcolax Supp) 10 mg Q48H PRN [place] CONSTIPATION Last administered on 21:23; Admin Dose 10 MG; Start 05/31/17 at 17:00 Ergocalciferol (Drisdol) 50,000 unit Q7D PO ; Start 05/31/17 at 17:00 Multivitamins Therapeutic (Theragran) 1 tab DAILY PO Last administered on 08:42; Admin Dose 1 TAB; Start 06/02/17 at 09:00 Folic Acid (Folic Acid) 1 mg DAILY PO Last administered on 06/05/17 08:41; Admin Dose 1 MG; Start 06/02/17 at 09:00 Thiamine HCl 100 mg 100 mg DAILY PO Last administered on 06/05/17 08:41; Admin Dose 100 MG; Start 06/02/17 at 09:00 Vancomycin HCl/ Sodium Chloride (Vancocin/NS) 250 ml @ 83.333 mls/ hr Q24H IVPB Last administered on 06/04/17 11:26; Admin Dose 83.333 MLS/HR; Start at 11:00 Potassium Chloride (Klor-Con 20) 20 meq DAILY PO Last administered on 08:41; Admin Dose 20 MEQ; Start 06/03/17 at 09:00 Warfarin Sodium (Coumadin) 7.5 mg DAILY@17 PO Last administered on 06/04/17 17 :45; Admin Dose 7.5 MG; Start 06/04/17 at 17:00 Fondaparinux (Arixtra) 7.5 mg DAILY SC Last administered on 06/05/17 08:46; Admin Dose 7.5 MG; Start 06/05/17 at 09:00 TODEONTE MD Jun 05, 2017 09:47
--- NOTE | 2017-06-05 11:45 | CONS ---
Date/Time of Note Date/Time of Note DATE: 06/05/17 TIME: 11:43 Consult Date/Type/Reason Admit Date/Time May 25, 2017 at 00:06 Initial Consult Date 06/02/17 Type of Consultation: Pulmonary Ordering Provider: DUANE NGUYỄN MD Subjective Patient appears comfortable this morning no new events Objective Vital Signs Date Time Temp Pulse Resp B/P Pulse Ox O2 Delivery O2 Flow Rate FiO2 06/05/17 11:02 98.6 76 18 106/52 94 06/05/17 08:20 3.0 06/05/17 08:20 Nasal Cannula 06/04/17 18:05 36 Intake and Output 06/04/17 06/04/17 06/05/17 15:00 23:00 07:00 Intake Total 750 ml 290 ml Balance 750 ml 290 ml Exam GENERAL: Elderly lady comfortable at rest VITAL SIGNS: per chart NECK: Supple. No JVD or lymphadenopathy. CARDIAC EXAM: S1, S2. 100 systolic ejection murmur. CHEST: Diminished air entry bilaterally but no rales or wheezes ABDOMEN: Soft, nontender. No guarding or rebound. EXTREMITIES: No cyanosis, clubbing or edema +2 NEUROLOGIC: Generalized weakness. No focal deficits. Results/Medications Result Diagram: 06/05/17 0728 06/04/17 0619 Results 24 hrs Laboratory Tests Test 06/04/17 14:20 06/05/17 07:28 Body Fluid Type THORACENTESIS FLUID Body Fluid Volume 250.0 Body Fluid Color YELLOW Body Fluid Appearance HAZY Body Fluid WBC 4515 Body Fluid RBC 1+ Body Fluid Neutrophils % 86 Body Fluid Lymphocytes (%) 5 Body Fluid Monocytes % 9 Body Fluid Glucose 92 Body Fluid Total Protein 2.2 Body Fluid Lactate Dehydrogenase Hemoglobin 12.4 Hematocrit 37.3 Prothrombin Time 24.3 #H Prothrombin Time Ratio 1.9 INR International Normalized Ratio 2.16 Medications Current Medications Lubiprostone (Amitiza) 24 mcg BID PO Last administered on 06/05/17 08:41; Admin Dose 24 MCG; Start 05/25/17 at 09:00 Nitroglycerin (Nitroglycerin (Sl Tab) 0.4 Mg) 0.4 tab PRN SL ; Start 05/25/17 at 06:00 Pantoprazole (Protonix Tab) 40 mg DAILY@06 PO Last administered on 06/05/17 06 :14; Admin Dose 40 MG; Start 05/26/17 at 06:00 Acetaminophen (Tylenol Tab) 650 mg Q6H PRN PO PAIN AND OR ELEVATED TEMP Last administered on 06/04/17 16:00; Admin Dose 650 MG; Start 05/25/17 at 06:30 Magnesium Oxide (Mag-Ox 400) 400 mg DAILY PO Last administered on 06/05/17 08: 41; Admin Dose 400 MG; Start 05/26/17 at 09:00 Guaifenesin/ Dextromethorphan (Robitussin Dm Liquid Cup) 5 ml Q4H PRN PO COUGH Last administered on 05/28/17 18:39; Admin Dose 5 ML; Start 05/25/17 at 15:00 Metoprolol Tartrate (Lopressor) 5 mg Q4H PRN IV HR>110 SBP>180mmhg Last administered on 06/01/17 17:11; Admin Dose 5 MG; Start 05/25/17 at 15:30 Lactobacillus Acidophilus/ Rhamnosus (Culturelle) 1 cap DAILY PO Last administered on 06/05/17 08:41; Admin Dose 1 CAP; Start 05/27/17 at 09:00 Atenolol (Tenormin) 25 mg BID PO Last administered on 06/04/17 20:33; Admin Dose 25 MG; Start 05/26/17 at 21:00; Status Future hold Polyethylene Glycol (Miralax) 8.5 gm DAILY PO Last administered on 06/05/17 08 :42; Admin Dose 8.5 GM; Start 05/29/17 at 09:00 Hydromorphone HCl 0.5 mg 0.5 mg Q6H PRN IV PAIN Last administered on 06/02/17 21:32; Admin Dose 0.5 MG; Start 05/29/17 at 01:00 Fluconazole/ Sodium Chloride 50 ml @ 50 mls/hr Q24H IVPB Last administered on 13:25; Admin Dose 50 MLS/HR; Start 05/30/17 at 12:30 Meropenem/Sodium Chloride (Merrem 1 Gm/50 ml (Pmx)) 50 ml @ 200 mls/hr Q12H IVPB Last administered on 06/05/17 03:10; Admin Dose 200 MLS/HR; Start at 03:00 Diltiazem HCl (Cardizem) 30 mg Q8 PO Last administered on 06/05/17 06:14; Admin Dose 30 MG; Start 05/31/17 at 22:00; Status Future hold Bisacodyl (Dulcolax Supp) 10 mg Q48H PRN [place] CONSTIPATION Last administered on 21:23; Admin Dose 10 MG; Start 05/31/17 at 17:00 Ergocalciferol (Drisdol) 50,000 unit Q7D PO ; Start 05/31/17 at 17:00 Multivitamins Therapeutic (Theragran) 1 tab DAILY PO Last administered on 08:42; Admin Dose 1 TAB; Start 06/02/17 at 09:00 Folic Acid (Folic Acid) 1 mg DAILY PO Last administered on 06/05/17 08:41; Admin Dose 1 MG; Start 06/02/17 at 09:00 Thiamine HCl 100 mg 100 mg DAILY PO Last administered on 06/05/17 08:41; Admin Dose 100 MG; Start 06/02/17 at 09:00 Vancomycin HCl/ Sodium Chloride (Vancocin/NS) 250 ml @ 83.333 mls/ hr Q24H IVPB Last administered on 06/04/17 11:26; Admin Dose 83.333 MLS/HR; Start at 11:00 Potassium Chloride (Klor-Con 20) 20 meq DAILY PO Last administered on 08:41; Admin Dose 20 MEQ; Start 06/03/17 at 09:00 Fondaparinux (Arixtra) 7.5 mg DAILY SC Last administered on 06/05/17 08:46; Admin Dose 7.5 MG; Start 06/05/17 at 09:00 Warfarin Sodium (Coumadin) 4 mg DAILY@17 PO ; Start 06/05/17 at 17:00 Assessment/Plan Chief Complaint/Hosp Course Assessment 1. Left renal hematoma surrounding effusion and ascites. Currently being evaluated by urology. Renal ultrasound noted 2. Left pleural effusion with compressive atelectasis unclear etiology possibly secondary to underlying cardiac disease versus pneumonia. Status post thoracentesis pleural fluid studies is pending 3. Recent bacteremia continues antibiotics per infectious diseases 4. Supratherapeutic INR on admission, deep vein thrombosis. 5. Ischemic cardiomyopathy Recommendation 1. Await pleural fluid studies 2. Continue urology recommendations 3. O2 as needed 4. Continue anticoagulation per hematology oncology Encourage out of bed if tolerated Problems: JERZY HARDY MD, [facility] Jun 05, 2017 11:45
[2017-06-05] MEDS: FLUCONAZOLE 100 MG/NS (PMX) 50 ML IVPB SCH (12:02)
[2017-06-05] MEDS: VANCOMYCIN 1.25 GM in SOD CHLORIDE 0.9% 250 ML IVPB SCH (12:02)
--- NOTE | 2017-06-05 12:43 | CONS ---
Date/Time of Note Date/Time of Note DATE: 06/05/17 TIME: 12:38 Assessment/Plan Assessment/Plan Chief Complaint/Hosp Course IMP: 1.tachycardia-? S Tach/PAF-overall improved when receives BB/CCB regimen [place] device 2.Hypotension-improved/stable/tolerating medications 3.AF-some RVR as dilt/atenolol held 4.Fevers/leukcytosis-increased significantly 5. TIA 6.UTI 7. coagulopathy-s/p Vitamin k and now subtherapeutic 8. L sided rib pain-positive TTP/resolved-negative troponin 9. 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 Hypontremia-improved 14. Episode of AMS and CRYPTOGRAPHER thought to be due to possible CVA-head CT negative. Currently stable 15. CHF-systolic acute on chronic LVEF 40% by echo this admit 16. Pleural effusion s/p L thoracentesis Recc: -Tele -Continue BB/CCB as tolerated -Continue abx's and f/u cx data -treat fevers -urology following -Patient with subtherapeutic INR now and possible cerebral event/IJ thrombus now on arixtra which was held today -Follow volume status closely s/p Bumex drip and will decrease dose of lasix following volume status/body presser/bun closely -Continue arixtra to coumadin loading with slightly higher goal INR given thrombosis Problems: Consultation Date/Type/Reason Admit Date/Time May 25, 2017 at 00:06 Initial Consult Date 05/25/17 Type of Consultation: cardiology Reason for Consultation tachycardia Referring Provider: DUANE NGUYỄN MD Exam/Review of Systems Vital Signs Vitals Vital Signs Date Time Temp Pulse Resp B/P Pulse Ox O2 Delivery O2 Flow Rate FiO2 06/05/17 11:02 98.6 76 18 106/52 94 06/05/17 08:20 3.0 06/05/17 08:20 Nasal Cannula 06/04/17 18:05 36 Intake and Output 06/04/17 06/04/17 06/05/17 15:00 23:00 07:00 Intake Total 750 ml 290 ml Balance 750 ml 290 ml Exam Review of Systems: CONSTITUTIONAL: No fevers, chills. PULMONARY: No sob CARDIOVASCULAR: No chest pain/palpitations GASTROINTESTINAL: No nausea/vomiting. GENITOURINARY: No hematuria/dysuria. MUSCULOSKELETAL: No myagias/arthalgias. PSYCHIATRIC: The patient denies depression. NEUROLOGIC: No weakness Constitutional: alert Psych: no complaints Head: normocephalic ENMT: mucosa pink and moist Neck: jvd (9 cm water), supple Respiratory: diminished breath sounds (at bases/B) Cardiovascular: irregular rhythm Gastrointestinal: non-tender, soft Musculoskeletal: muscle weakness (egenarlized mild) Extremities: edema (none) Neurological: other (No focal deficits) Results Result Diagram: 06/05/17 0728 06/04/17 0619 Results 24 hrs Laboratory Tests Test 06/04/17 14:20 06/05/17 07:28 Body Fluid Type THORACENTESIS FLUID Body Fluid Volume 250.0 Body Fluid Color YELLOW Body Fluid Appearance HAZY Body Fluid WBC 4515 Body Fluid RBC 1+ Body Fluid Neutrophils % 86 Body Fluid Lymphocytes (%) 5 Body Fluid Monocytes % 9 Body Fluid Glucose 92 Body Fluid Total Protein 2.2 Body Fluid Lactate Dehydrogenase Hemoglobin 12.4 Hematocrit 37.3 Prothrombin Time 24.3 #H Prothrombin Time Ratio 1.9 INR International Normalized Ratio 2.16 Medications Medications Current Medications Lubiprostone (Amitiza) 24 mcg BID PO Last administered on 06/05/17 08:41; Admin Dose 24 MCG; Start 05/25/17 at 09:00 Nitroglycerin (Nitroglycerin (Sl Tab) 0.4 Mg) 0.4 tab PRN SL ; Start 05/25/17 at 06:00 Pantoprazole (Protonix Tab) 40 mg DAILY@06 PO Last administered on 06/05/17 06 :14; Admin Dose 40 MG; Start 05/26/17 at 06:00 Acetaminophen (Tylenol Tab) 650 mg Q6H PRN PO PAIN AND OR ELEVATED TEMP Last administered on 06/04/17 16:00; Admin Dose 650 MG; Start 05/25/17 at 06:30 Magnesium Oxide (Mag-Ox 400) 400 mg DAILY PO Last administered on 06/05/17 08: 41; Admin Dose 400 MG; Start 05/26/17 at 09:00 Guaifenesin/ Dextromethorphan (Robitussin Dm Liquid Cup) 5 ml Q4H PRN PO COUGH Last administered on 05/28/17 18:39; Admin Dose 5 ML; Start 05/25/17 at 15:00 Metoprolol Tartrate (Lopressor) 5 mg Q4H PRN IV HR>110 SBP>180mmhg Last administered on 06/01/17 17:11; Admin Dose 5 MG; Start 05/25/17 at 15:30 Lactobacillus Acidophilus/ Rhamnosus (Culturelle) 1 cap DAILY PO Last administered on 06/05/17 08:41; Admin Dose 1 CAP; Start 05/27/17 at 09:00 Atenolol (Tenormin) 25 mg BID PO Last administered on 06/04/17 20:33; Admin Dose 25 MG; Start 05/26/17 at 21:00; Status Future hold Polyethylene Glycol (Miralax) 8.5 gm DAILY PO Last administered on 06/05/17 08 :42; Admin Dose 8.5 GM; Start 05/29/17 at 09:00 Hydromorphone HCl 0.5 mg 0.5 mg Q6H PRN IV PAIN Last administered on 06/02/17 21:32; Admin Dose 0.5 MG; Start 05/29/17 at 01:00 Fluconazole/ Sodium Chloride 50 ml @ 50 mls/hr Q24H IVPB Last administered on 12:02; Admin Dose 50 MLS/HR; Start 05/30/17 at 12:30 Meropenem/Sodium Chloride (Merrem 1 Gm/50 ml (Pmx)) 50 ml @ 200 mls/hr Q12H IVPB Last administered on 06/05/17 03:10; Admin Dose 200 MLS/HR; Start at 03:00 Diltiazem HCl (Cardizem) 30 mg Q8 PO Last administered on 06/05/17 06:14; Admin Dose 30 MG; Start 05/31/17 at 22:00; Status Future hold Bisacodyl (Dulcolax Supp) 10 mg Q48H PRN [place] CONSTIPATION Last administered on 21:23; Admin Dose 10 MG; Start 05/31/17 at 17:00 Ergocalciferol (Drisdol) 50,000 unit Q7D PO ; Start 05/31/17 at 17:00 Multivitamins Therapeutic (Theragran) 1 tab DAILY PO Last administered on 08:42; Admin Dose 1 TAB; Start 06/02/17 at 09:00 Folic Acid (Folic Acid) 1 mg DAILY PO Last administered on 06/05/17 08:41; Admin Dose 1 MG; Start 06/02/17 at 09:00 Thiamine HCl 100 mg 100 mg DAILY PO Last administered on 06/05/17 08:41; Admin Dose 100 MG; Start 06/02/17 at 09:00 Vancomycin HCl/ Sodium Chloride (Vancocin/NS) 250 ml @ 83.333 mls/ hr Q24H IVPB Last administered on 06/05/17 12:02; Admin Dose 83.333 MLS/HR; Start at 11:00 Potassium Chloride (Klor-Con 20) 20 meq DAILY PO Last administered on 08:41; Admin Dose 20 MEQ; Start 06/03/17 at 09:00 Fondaparinux (Arixtra) 7.5 mg DAILY SC Last administered on 06/05/17 08:46; Admin Dose 7.5 MG; Start 06/05/17 at 09:00 Warfarin Sodium (Coumadin) 4 mg DAILY@17 PO ; Start 06/05/17 at 17:00 Miscellaneous Information (*Rx Drug Level Order Reminder*) VANCO TROUGH @ 1, 000 ON... ONCE ONCE XX ; Start 06/06/17 at 10:00; Stop 06/06/17 at 10:01 PLACIDO COREA Jun 05, 2017 12:43
[2017-06-05] MEDS: NITROGLYCERIN (SL) 0.4 MG TAB SL SCH (14:21)
[2017-06-05] MEDS ORDERED: WARFARIN 2 MG TAB PO SCH (17:00)
--- NOTE | 2017-06-05 19:34 | PN ---
Date/Time of Note Date/Time of Note DATE: 06/05/17 TIME: 19:28 Assessment/Plan VTE Prophylaxis VTE Prophylaxis Intervention: ambulation Lines/Catheters IV [facility] Urinary Cath still in place: No Assessment/Plan Chief Complaint/Hosp Course Patient has perinephric fluid collection which is most likely a hematoma. Renal ultrasound showed mild left hydronephrosis. Her H&H are stable, Continue present treatment Problems: Subjective 24 Hr Interval Summary Free Text/Dictation Family at bedside, patient states that she feels a little better, earlier today she did have abdominal cramps for a few minutes but that has subsided, she denies any flank pain Constitutional: no complaints Eyes: no complaints ENT: no complaints Respiratory: No cough, No shortness of breath Cardiovascular: no complaints Gastrointestinal: constipation, No nausea, No vomiting Genitourinary: No bleeding, No hematuria Musculoskeletal: no complaints Skin: no complaints Neurologic: no complaints Endocrine: no complaints Lymphatic: no complaints Psychological: no complaints Exam/Review of Systems Vital Signs Vitals Vital Signs Date Time Temp Pulse Resp B/P Pulse Ox O2 Delivery O2 Flow Rate FiO2 06/05/17 16:15 76 06/05/17 15:31 98.6 18 106/52 96 06/05/17 14:07 Nasal Cannula 3.0 06/04/17 18:05 36 Intake and Output 06/04/17 06/04/17 06/05/17 15:00 23:00 07:00 Intake Total 750 ml 290 ml Balance 750 ml 290 ml Exam Constitutional: alert, oriented Psych: no complaints Head: normocephalic Eyes: nl conjunctiva ENMT: nl external ears & nose Neck: non-tender, supple Respiratory: normal air movement Gastrointestinal: non-tender, soft Genitourinary - Female: CMT, No CVA tenderness Extremities: No edema, No tenderness Skin: nl turgor Results Result Diagram: 06/05/17 0728 06/04/17 0619 Results 24 hrs Laboratory Tests Test 06/05/17 07:28 Hemoglobin 12.4 Hematocrit 37.3 Prothrombin Time 24.3 #H Prothrombin Time Ratio 1.9 INR International Normalized Ratio 2.16 Medications Medications Current Medications Lubiprostone (Amitiza) 24 mcg BID PO Last administered on 06/05/17t 08:41; Admin Dose 24 MCG; Start 05/25/17 at 09:00 Nitroglycerin (Nitroglycerin (Sl Tab) 0.4 Mg) 0.4 tab PRN SL Last administered on 06/05/17 14:21; Admin Dose 0.4 TAB; Start 05/25/17 at 06:00 Pantoprazole (Protonix Tab) 40 mg DAILY@06 PO Last administered on 06/05/17 06 :14; Admin Dose 40 MG; Start 05/26/17 at 06:00 Acetaminophen (Tylenol Tab) 650 mg Q6H PRN PO PAIN AND OR ELEVATED TEMP Last administered on 06/04/17 16:00; Admin Dose 650 MG; Start 05/25/17 at 06:30 Magnesium Oxide (Mag-Ox 400) 400 mg DAILY PO Last administered on 06/05/17 08: 41; Admin Dose 400 MG; Start 05/26/17 at 09:00 Guaifenesin/ Dextromethorphan (Robitussin Dm Liquid Cup) 5 ml Q4H PRN PO COUGH Last administered on 05/28/17 18:39; Admin Dose 5 ML; Start 05/25/17 at 15:00 Metoprolol Tartrate (Lopressor) 5 mg Q4H PRN IV HR>110 SBP>180mmhg Last administered on 06/01/17 17:11; Admin Dose 5 MG; Start 05/25/17 at 15:30 Lactobacillus Acidophilus/ Rhamnosus (Culturelle) 1 cap DAILY PO Last administered on 06/05/17 08:41; Admin Dose 1 CAP; Start 05/27/17 at 09:00 Atenolol (Tenormin) 25 mg BID PO Last administered on 06/04/17 20:33; Admin Dose 25 MG; Start 05/26/17 at 21:00; Status Future hold Polyethylene Glycol (Miralax) 8.5 gm DAILY PO Last administered on 06/05/17 08 :42; Admin Dose 8.5 GM; Start 05/29/17 at 09:00 Hydromorphone HCl 0.5 mg 0.5 mg Q6H PRN IV PAIN Last administered on 06/02/17 21:32; Admin Dose 0.5 MG; Start 05/29/17 at 01:00 Fluconazole/ Sodium Chloride 50 ml @ 50 mls/hr Q24H IVPB Last administered on 12:02; Admin Dose 50 MLS/HR; Start 05/30/17 at 12:30 Meropenem/Sodium Chloride (Merrem 1 Gm/50 ml (Pmx)) 50 ml @ 200 mls/hr Q12H IVPB Last administered on 06/05/17 15:00; Admin Dose 200 MLS/HR; Start at 03:00 Diltiazem HCl (Cardizem) 30 mg Q8 PO Last administered on 06/05/17 06:14; Admin Dose 30 MG; Start 05/31/17 at 22:00; Status Future hold Bisacodyl (Dulcolax Supp) 10 mg Q48H PRN [place] CONSTIPATION Last administered on 21:23; Admin Dose 10 MG; Start 05/31/17 at 17:00 Ergocalciferol (Drisdol) 50,000 unit Q7D PO ; Start 05/31/17 at 17:00 Multivitamins Therapeutic (Theragran) 1 tab DAILY PO Last administered on 08:42; Admin Dose 1 TAB; Start 06/02/17 at 09:00 Folic Acid (Folic Acid) 1 mg DAILY PO Last administered on 06/05/17 08:41; Admin Dose 1 MG; Start 06/02/17 at 09:00 Thiamine HCl 100 mg 100 mg DAILY PO Last administered on 06/05/17 08:41; Admin Dose 100 MG; Start 06/02/17 at 09:00 Vancomycin HCl/ Sodium Chloride (Vancocin/NS) 250 ml @ 83.333 mls/ hr Q24H IVPB Last administered on 06/05/17 12:02; Admin Dose 83.333 MLS/HR; Start at 11:00 Potassium Chloride (Klor-Con 20) 20 meq DAILY PO Last administered on 08:41; Admin Dose 20 MEQ; Start 06/03/17 at 09:00 Fondaparinux (Arixtra) 7.5 mg DAILY SC Last administered on 06/05/17 08:46; Admin Dose 7.5 MG; Start 06/05/17 at 09:00 Warfarin Sodium (Coumadin) 4 mg DAILY@17 PO Last administered on 06/05/17 17: 04; Admin Dose 4 MG; Start 06/05/17 at 17:00 Miscellaneous Information (*Rx Drug Level Order Reminder*) VANCO TROUGH @ 1, 000 ON... ONCE ONCE XX ; Start 06/06/17 at 10:00; Stop 06/06/17 at 10:01 Furosemide (Lasix) 40 mg DAILY IV ; Start 06/06/17 at 09:00 ANA WILKINSON MD Jun 05, 2017 19:34
--- NOTE | 2017-06-05 21:50 | CONS ---
Date/Time of Note Date/Time of Note DATE: 06/05/17 TIME: 21:48 Assessment/Plan Assessment/Plan Chief Complaint/Hosp Course Patient is alert, feels better, no sob, no fevers Antibiotics: Vancomycin, meropenem, fluconazole Physical examination: Well-developed, fragile Irish-speaking elderly woman who is alert in no distress. Head atraumatic normocephalic, sclera nonicteric. Neck is supple. Chest rise symmetrical breath sounds diminished basis, scattered crackles more on the left. Heart: S1, S2. Abdomen soft, bowel tones present. Patient is having left-sided pain on palpation as well as lower back pain. Extremities without cyanosis. Left upper extremity with trace edema. Assessment: 1. Sepsis with high fevers persistent leukocytosis and tachycardia 2. Left kidney hematoma versus abscess 3. Exudative left pleural effusion, possible underlying pneumonia, s/p thoracentesis 4. Bacteremia with blood culture on admission grew Bacillus species consistent with contaminant 4. Nina albicans UTI 5. Coronary artery disease with a history of mitral valve mechanical prosthesis and ejection fraction of 40% 6. History of permanent pacemaker 7. Allergy: Penicillin Plan: Feels better, continue abx, f/u repeat cultures, follow recommendations of consultants Discussed with patient /RN Problems: Consultation Date/Type/Reason Admit Date/Time May 25, 2017 at 00:06 Initial Consult Date 05/25/17 Type of Consultation: ID Referring Provider: DUANE NGUYỄN MD Exam/Review of Systems Vital Signs Vitals Vital Signs Date Time Temp Pulse Resp B/P Pulse Ox O2 Delivery O2 Flow Rate FiO2 06/05/17 21:03 75 06/05/17 20:52 20 96 Nasal Cannula 3.0 06/05/17 20:05 99.8 96/55 06/04/17 18:05 36 Intake and Output 06/04/17 06/04/17 06/05/17 15:00 23:00 07:00 Intake Total 750 ml 290 ml Balance 750 ml 290 ml Results Result Diagram: 06/05/17 0728 06/04/17 0619 Results 24 hrs Laboratory Tests Test 06/05/17 07:28 Hemoglobin 12.4 Hematocrit 37.3 Prothrombin Time 24.3 #H Prothrombin Time Ratio 1.9 INR International Normalized Ratio 2.16 Medications Medications Current Medications Lubiprostone (Amitiza) 24 mcg BID PO Last administered on 06/05/17 21:46; Admin Dose 24 MCG; Start 05/25/17 at 09:00 Nitroglycerin (Nitroglycerin (Sl Tab) 0.4 Mg) 0.4 tab PRN SL Last administered on 06/05/17 14:21; Admin Dose 0.4 TAB; Start 05/25/17 at 06:00 Pantoprazole (Protonix Tab) 40 mg DAILY@06 PO Last administered on 06/05/17 06 :14; Admin Dose 40 MG; Start 05/26/17 at 06:00 Acetaminophen (Tylenol Tab) 650 mg Q6H PRN PO PAIN AND OR ELEVATED TEMP Last administered on 06/04/17 16:00; Admin Dose 650 MG; Start 05/25/17 at 06:30 Magnesium Oxide (Mag-Ox 400) 400 mg DAILY PO Last administered on 06/05/17 08: 41; Admin Dose 400 MG; Start 05/26/17 at 09:00 Guaifenesin/ Dextromethorphan (Robitussin Dm Liquid Cup) 5 ml Q4H PRN PO COUGH Last administered on 05/28/17 18:39; Admin Dose 5 ML; Start 05/25/17 at 15:00 Metoprolol Tartrate (Lopressor) 5 mg Q4H PRN IV HR>110 SBP>180mmhg Last administered on 06/01/17 17:11; Admin Dose 5 MG; Start 05/25/17 at 15:30 Lactobacillus Acidophilus/ Rhamnosus (Culturelle) 1 cap DAILY PO Last administered on 06/05/17 08:41; Admin Dose 1 CAP; Start 05/27/17 at 09:00 Atenolol (Tenormin) 25 mg BID PO Last administered on 06/04/17 20:33; Admin Dose 25 MG; Start 05/26/17 at 21:00; Status Future hold Polyethylene Glycol (Miralax) 8.5 gm DAILY PO Last administered on 06/05/17 08 :42; Admin Dose 8.5 GM; Start 05/29/17 at 09:00 Hydromorphone HCl 0.5 mg 0.5 mg Q6H PRN IV PAIN Last administered on 06/02/17 21:32; Admin Dose 0.5 MG; Start 05/29/17 at 01:00 Fluconazole/ Sodium Chloride 50 ml @ 50 mls/hr Q24H IVPB Last administered on 12:02; Admin Dose 50 MLS/HR; Start 05/30/17 at 12:30 Meropenem/Sodium Chloride (Merrem 1 Gm/50 ml (Pmx)) 50 ml @ 200 mls/hr Q12H IVPB Last administered on 06/05/17 15:00; Admin Dose 200 MLS/HR; Start at 03:00 Diltiazem HCl (Cardizem) 30 mg Q8 PO Last administered on 06/05/17 06:14; Admin Dose 30 MG; Start 05/31/17 at 22:00; Status Future hold Bisacodyl (Dulcolax Supp) 10 mg Q48H PRN [place] CONSTIPATION Last administered on 21:23; Admin Dose 10 MG; Start 05/31/17 at 17:00 Ergocalciferol (Drisdol) 50,000 unit Q7D PO ; Start 05/31/17 at 17:00 Multivitamins Therapeutic (Theragran) 1 tab DAILY PO Last administered on 08:42; Admin Dose 1 TAB; Start 06/02/17 at 09:00 Folic Acid (Folic Acid) 1 mg DAILY PO Last administered on 06/05/17 08:41; Admin Dose 1 MG; Start 06/02/17 at 09:00 Thiamine HCl 100 mg 100 mg DAILY PO Last administered on 06/05/17 08:41; Admin Dose 100 MG; Start 06/02/17 at 09:00 Vancomycin HCl/ Sodium Chloride (Vancocin/NS) 250 ml @ 83.333 mls/ hr Q24H IVPB Last administered on 06/05/17 12:02; Admin Dose 83.333 MLS/HR; Start at 11:00 Potassium Chloride (Klor-Con 20) 20 meq DAILY PO Last administered on 08:41; Admin Dose 20 MEQ; Start 06/03/17 at 09:00 Fondaparinux (Arixtra) 7.5 mg DAILY SC Last administered on 06/05/17 08:46; Admin Dose 7.5 MG; Start 06/05/17 at 09:00 Warfarin Sodium (Coumadin) 4 mg DAILY@17 PO Last administered on 06/05/17t 17: 04; Admin Dose 4 MG; Start 06/05/17 at 17:00 Miscellaneous Information (*Rx Drug Level Order Reminder*) VANCO TROUGH @ 1, 000 ON... ONCE ONCE XX ; Start 06/06/17 at 10:00; Stop 06/06/17 at 10:01 Furosemide (Lasix) 40 mg DAILY IV ; Start 06/06/17 at 09:00 BALDOMERO STARKS NP Jun 05, 2017 21:50
--- NOTE | 2017-06-05 22:40 | PN ---
Date/Time of Note Date/Time of Note DATE: 06/05/17 TIME: 22:39 Assessment/Plan VTE Prophylaxis VTE Prophylaxis Intervention: other Lines/Catheters [facility] Urinary Cath still in place: No Assessment/Plan Chief Complaint/Hosp Course SEPSIS AFIB HTN ASHD hyponatremia PEURAL EFFUSION S/P THORCENTESIS UTI LOW EF vicki platelet better PLAN LASIX ANTIBIOTIC THORACENTESIS kcl Problems: Subjective 24 Hr Interval Summary ENT: no complaints Respiratory: no complaints Exam/Review of Systems Vital Signs Vitals Vital Signs Date Time Temp Pulse Resp B/P Pulse Ox O2 Delivery O2 Flow Rate FiO2 06/05/17 21:03 75 06/05/17 20:52 20 96 Nasal Cannula 3.0 06/05/17 20:05 99.8 96/55 06/04/17 18:05 36 Intake and Output 06/04/17 06/04/17 06/05/17 14:59 22:59 06:59 Intake Total 750 ml 290 ml Balance 750 ml 290 ml Exam Neck: supple Respiratory: clear to auscultation Cardiovascular: regular rate and rhythm Gastrointestinal: soft Musculoskeletal: nl extremities to inspection Extremities: normal pulses 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 Results Result Diagram: 06/05/17 0728 06/04/17 0619 Results 24 hrs Laboratory Tests Test 06/05/17 07:28 Hemoglobin 12.4 Hematocrit 37.3 Prothrombin Time 24.3 #H Prothrombin Time Ratio 1.9 INR International Normalized Ratio 2.16 Medications Medications Current Medications Lubiprostone (Amitiza) 24 mcg BID PO Last administered on 06/05/17 21:46; Admin Dose 24 MCG; Start 05/25/17 at 09:00 Nitroglycerin (Nitroglycerin (Sl Tab) 0.4 Mg) 0.4 tab PRN SL Last administered on 06/05/17 14:21; Admin Dose 0.4 TAB; Start 05/25/17 at 06:00 Pantoprazole (Protonix Tab) 40 mg DAILY@06 PO Last administered on 06/05/17 06 :14; Admin Dose 40 MG; Start 05/26/17 at 06:00 Acetaminophen (Tylenol Tab) 650 mg Q6H PRN PO PAIN AND OR ELEVATED TEMP Last administered on 06/04/17 16:00; Admin Dose 650 MG; Start 05/25/17 at 06:30 Magnesium Oxide (Mag-Ox 400) 400 mg DAILY PO Last administered on 06/05/17 08: 41; Admin Dose 400 MG; Start 05/26/17 at 09:00 Guaifenesin/ Dextromethorphan (Robitussin Dm Liquid Cup) 5 ml Q4H PRN PO COUGH Last administered on 05/28/17 18:39; Admin Dose 5 ML; Start 05/25/17 at 15:00 Metoprolol Tartrate (Lopressor) 5 mg Q4H PRN IV HR>110 SBP>180mmhg Last administered on 06/01/17 17:11; Admin Dose 5 MG; Start 05/25/17 at 15:30 Lactobacillus Acidophilus/ Rhamnosus (Culturelle) 1 cap DAILY PO Last administered on 06/05/17 08:41; Admin Dose 1 CAP; Start 05/27/17 at 09:00 Atenolol (Tenormin) 25 mg BID PO Last administered on 06/04/17 20:33; Admin Dose 25 MG; Start 05/26/17 at 21:00; Status Future hold Polyethylene Glycol (Miralax) 8.5 gm DAILY PO Last administered on 06/05/17 08 :42; Admin Dose 8.5 GM; Start 05/29/17 at 09:00 Hydromorphone HCl 0.5 mg 0.5 mg Q6H PRN IV PAIN Last administered on 06/02/17 21:32; Admin Dose 0.5 MG; Start 05/29/17 at 01:00 Fluconazole/ Sodium Chloride 50 ml @ 50 mls/hr Q24H IVPB Last administered on 12:02; Admin Dose 50 MLS/HR; Start 05/30/17 at 12:30 Meropenem/Sodium Chloride (Merrem 1 Gm/50 ml (Pmx)) 50 ml @ 200 mls/hr Q12H IVPB Last administered on 06/05/17 15:00; Admin Dose 200 MLS/HR; Start at 03:00 Diltiazem HCl (Cardizem) 30 mg Q8 PO Last administered on 06/05/17 06:14; Admin Dose 30 MG; Start 05/31/17 at 22:00; Status Future hold Bisacodyl (Dulcolax Supp) 10 mg Q48H PRN [place] CONSTIPATION Last administered on 21:23; Admin Dose 10 MG; Start 05/31/17 at 17:00 Ergocalciferol (Drisdol) 50,000 unit Q7D PO ; Start 05/31/17 at 17:00 Multivitamins Therapeutic (Theragran) 1 tab DAILY PO Last administered on 08:42; Admin Dose 1 TAB; Start 06/02/17 at 09:00 Folic Acid (Folic Acid) 1 mg DAILY PO Last administered on 06/05/17 08:41; Admin Dose 1 MG; Start 06/02/17 at 09:00 Thiamine HCl 100 mg 100 mg DAILY PO Last administered on 06/05/17 08:41; Admin Dose 100 MG; Start 06/02/17 at 09:00 Vancomycin HCl/ Sodium Chloride (Vancocin/NS) 250 ml @ 83.333 mls/ hr Q24H IVPB Last administered on 06/05/17 12:02; Admin Dose 83.333 MLS/HR; Start at 11:00 Potassium Chloride (Klor-Con 20) 20 meq DAILY PO Last administered on 08:41; Admin Dose 20 MEQ; Start 06/03/17 at 09:00 Fondaparinux (Arixtra) 7.5 mg DAILY SC Last administered on 06/05/17 08:46; Admin Dose 7.5 MG; Start 06/05/17 at 09:00 Warfarin Sodium (Coumadin) 4 mg DAILY@17 PO Last administered on 06/05/17 17: 04; Admin Dose 4 MG; Start 06/05/17 at 17:00 Miscellaneous Information (*Rx Drug Level Order Reminder*) VANCO TROUGH @ 1, 000 ON... ONCE ONCE XX ; Start 06/06/17 at 10:00; Stop 06/06/17 at 10:01 Furosemide (Lasix) 40 mg DAILY IV ; Start 06/06/17 at 09:00 DUANE NGUYỄN MD Jun 05, 2017 22:40
[2017-06-06] VITALS (13 sets, daily range): BP systolic 90–130; BP diastolic 51–59; PULSE 75–93; RESP 16–19
[2017-06-06] MEDS: LEVALBUTEROL (NEB) 0.63 MG/3 ML AMP HHN SCH ×4 (01:55→20:32)
[2017-06-06] MEDS: ACETAMINOPHEN 325 MG TAB PO PRN ×2 (02:35→19:36)
[2017-06-06] MEDS: MEROPENEM 1 GM/50ML(PMX) 50 ML IVPB SCH ×2 (02:49→15:50)
[2017-06-06] MEDS: LEVOTHYROXINE 75 MCG TAB PO SCH (06:29)
[2017-06-06] MEDS: PANTOPRAZOLE (EC) 40 MG TAB PO SCH (06:29)
[2017-06-06] MEDS: DILTIAZEM 30 MG TAB PO SCH ×3 (06:30→22:00)
[2017-06-06 08:06] LABS: ADD SCAN DIFF NO
[2017-06-06 08:14] LABS: ABNORMAL IP MESSAGE 1; BASOPHILS % 0.3 % (0.0-2.0); EOSINOPHILS % 0.1 % (0.0-7.0); HEMATOCRIT 34.7 % (37.0-47.0); HEMOGLOBIN 11.3 g/dl (12.0-16.0); LYMPHOCYTES # 0.7 10^3/ul (0.8-2.9); LYMPHOCYTES % 5.4 % (15.0-51.0); MEAN CORPUSCULAR HGB CONC 32.6 g/dl (32.0-37.0); MEAN PLATELET VOLUME 13.6 fl (7.4-10.4); MONOCYTE # 0.3 10^3/ul (0.3-0.9); MONOCYTES % 2.5 % (0.0-11.0); NEUTROPHIL # 9.7 10^3/ul (1.6-7.5); NEUTROPHILS % 80.7 % (39.0-77.0); PLATELET COUNT 136 10^3/UL (140-415); RED CELL DISTRIBUTION WIDTH 15.1 % (11.5-14.5)
[2017-06-06 08:33] LABS: ALBUMIN/GLOBULIN RATIO 0.66; BILIRUBIN,INDIRECT 0.2 mg/dl (0-1.1); BILIRUBIN,TOTAL 0.2 mg/dl (0.2-1.3); CALCIUM 7.3 mg/dl (8.4-10.2); CREATININE 0.77 mg/dl (0.44-1.00); POTASSIUM 4.2 mmol/L (3.5-5.1)
[2017-06-06 08:38] LABS: INR 3.03; PROTIME 31.8 Sec (12.2-14.2); PT RATIO 2.5
[2017-06-06] MEDS: MAGNESIUM OXIDE 400 MG TAB PO SCH (08:44)
[2017-06-06] MEDS: LUBIPROSTONE 24 MCG CAP PO SCH ×2 (08:44→20:58)
[2017-06-06] MEDS: FOLIC ACID 1 MG TAB PO SCH (08:44)
[2017-06-06] MEDS: THIAMINE 100 MG TAB PO SCH (08:44)
[2017-06-06] MEDS: LACTOBACILLUS RHAMNOSUS CAP PO SCH (08:44)
[2017-06-06] MEDS: MULTIVITAMINS THERAPEUTIC TAB PO SCH (08:44)
[2017-06-06] MEDS: POTASSIUM CHLORIDE (SR) 20 MEQ TAB PO SCH (08:45)
[2017-06-06] MEDS: POLYETHYLENE GLYCOL 17 GM PACKET PO SCH (08:45)
[2017-06-06] MEDS: ATENOLOL 25 MG TAB PO SCH ×2 (08:46→20:59)
[2017-06-06] MEDS ORDERED: FUROSEMIDE 40 MG INJ IV SCH (09:00)
[2017-06-06] MEDS: FONDAPARINUX 7.5 MG SYG SC SCH (09:24)
--- NOTE | 2017-06-06 11:39 | PN ---
Date/Time of Note Date/Time of Note DATE: 06/06/17 TIME: 11:37 Assessment/Plan VTE Prophylaxis VTE Prophylaxis Intervention: ambulation Lines/Catheters IV Catheter Type (from [facility]): [facility] Urinary Cath still in place: No Assessment/Plan Chief Complaint/Hosp Course 1. SEPSIS resolving 2. AFIB, controlled 3. HTN, controlled 4. ASHD 5. hyponatremia 6. recurrent UTI 7. LOW EF 8. low platelets 9. Anemia 10. urinary incontinence 11. Constipation 12. Vit d deficiency Problems: Assessment/Plan 1. Continue PT 2. D?C tomorrow Subjective 24 Hr Interval Summary Constitutional: improved, no complaints Exam/Review of Systems Vital Signs Vitals Vital Signs Date Time Temp Pulse Resp B/P Pulse Ox O2 Delivery O2 Flow Rate FiO2 06/06/17 11:11 98.6 76 19 94/51 97 06/06/17 08:00 Nasal Cannula 3.0 06/04/17 18:05 36 Intake and Output 06/05/17 06/05/17 06/06/17 14:59 22:59 06:59 Intake Total 400 ml 350 ml Balance 400 ml 350 ml Exam Eyes: nl conjunctiva ENMT: nl external ears & nose Gastrointestinal: rebound or guarding, No ascites, No bowel sounds, No distended, No firm, No hepatomegaly, No mass , No nl liver, spleen, No non-tender, No other, No soft, No splenomegaly, No surgical scars, No tender Genitourinary - Female: CVA tenderness, No CMT, No nl adnexae, No nl external genitalia, No other, No uterus Results Result Diagram: 06/06/17 0713 06/06/17 0713 Results 24 hrs Laboratory Tests Test 06/06/17 07:13 06/06/17 09:07 White Blood Count 12.0 #H Red Blood Count 3.90 L Hemoglobin 11.3 L Hematocrit 34.7 L Mean Corpuscular Volume 89.0 Mean Corpuscular Hemoglobin 29.0 Mean Corpuscular Hemoglobin Concent 32.6 Red Cell Distribution Width 15.1 H Platelet Count 136 L Mean Platelet Volume 13.6 H Neutrophils % 80.7 H Lymphocytes % 5.4 L Monocytes % 2.5 Eosinophils % 0.1 Basophils % 0.3 Neutrophils # 9.7 H Lymphocytes # 0.7 L Monocytes # 0.3 Eosinophils # 0.0 Basophils # 0.0 Nucleated Red Blood Cells # 0.0 Prothrombin Time 31.8 #H Prothrombin Time Ratio 2.5 INR International Normalized Ratio 3.03 Sodium Level 132 L Potassium Level 4.2 Chloride Level 91 L Carbon Dioxide Level 34 H Anion Gap 11 Blood Urea Nitrogen 29 H Creatinine 0.77 Glucose Level 71 Calcium Level 7.3 L Total Bilirubin 0.2 Direct Bilirubin 0.00 Indirect Bilirubin 0.2 Aspartate Amino Transf (AST/SGOT) 77 H Alanine Aminotransferase (ALT/SGPT) 75 H Alkaline Phosphatase 98 Total Protein 5.0 L Albumin 2.0 L Globulin 3.00 Albumin/Globulin Ratio 0.66 Vancomycin Level Trough 20.1 H Medications Medications Current Medications Lubiprostone (Amitiza) 24 mcg BID PO Last administered on 06/06/17 08:44; Admin Dose 24 MCG; Start 05/25/17 at 09:00 Nitroglycerin (Nitroglycerin (Sl Tab) 0.4 Mg) 0.4 tab PRN SL Last administered on 06/05/17 14:21; Admin Dose 0.4 TAB; Start 05/25/17 at 06:00 Pantoprazole (Protonix Tab) 40 mg DAILY@06 PO Last administered on 06/06/17 06 :29; Admin Dose 40 MG; Start 05/26/17 at 06:00 Acetaminophen (Tylenol Tab) 650 mg Q6H PRN PO PAIN AND OR ELEVATED TEMP Last administered on 06/06/17 02:35; Admin Dose 650 MG; Start 05/25/17 at 06:30 Magnesium Oxide (Mag-Ox 400) 400 mg DAILY PO Last administered on 06/06/17 08: 44; Admin Dose 400 MG; Start 05/26/17 at 09:00 Guaifenesin/ Dextromethorphan (Robitussin Dm Liquid Cup) 5 ml Q4H PRN PO COUGH Last administered on 05/28/17 18:39; Admin Dose 5 ML; Start 05/25/17 at 15:00 Metoprolol Tartrate (Lopressor) 5 mg Q4H PRN IV HR>110 SBP>180mmhg Last administered on 06/01/17 17:11; Admin Dose 5 MG; Start 05/25/17 at 15:30 Lactobacillus Acidophilus/ Rhamnosus (Culturelle) 1 cap DAILY PO Last administered on 06/06/17 08:44; Admin Dose 1 CAP; Start 05/27/17 at 09:00 Atenolol (Tenormin) 25 mg BID PO Last administered on 06/04/17 20:33; Admin Dose 25 MG; Start 05/26/17 at 21:00; Status Future hold Polyethylene Glycol (Miralax) 8.5 gm DAILY PO Last administered on 06/06/17 08 :45; Admin Dose 8.5 GM; Start 05/29/17 at 09:00 Hydromorphone HCl 0.5 mg 0.5 mg Q6H PRN IV PAIN Last administered on 06/02/17 21:32; Admin Dose 0.5 MG; Start 05/29/17 at 01:00 Fluconazole/ Sodium Chloride 50 ml @ 50 mls/hr Q24H IVPB Last administered on 12:02; Admin Dose 50 MLS/HR; Start 05/30/17 at 12:30 Meropenem/Sodium Chloride (Merrem 1 Gm/50 ml (Pmx)) 50 ml @ 200 mls/hr Q12H IVPB Last administered on 06/06/17 02:49; Admin Dose 200 MLS/HR; Start at 03:00 Diltiazem HCl (Cardizem) 30 mg Q8 PO Last administered on 06/06/17 06:30; Admin Dose 30 MG; Start 05/31/17 at 22:00; Status Future hold Bisacodyl (Dulcolax Supp) 10 mg Q48H PRN [place] CONSTIPATION Last administered on 21:23; Admin Dose 10 MG; Start 05/31/17 at 17:00 Ergocalciferol (Drisdol) 50,000 unit Q7D PO ; Start 05/31/17 at 17:00 Multivitamins Therapeutic (Theragran) 1 tab DAILY PO Last administered on 08:44; Admin Dose 1 TAB; Start 06/02/17 at 09:00 Folic Acid (Folic Acid) 1 mg DAILY PO Last administered on 06/06/17 08:44; Admin Dose 1 MG; Start 06/02/17 at 09:00 Thiamine HCl (Vitamin B1) 100 mg DAILY PO Last administered on 06/06/17 08:44 ; Admin Dose 100 MG; Start 06/02/17 at 09:00 Potassium Chloride (Klor-Con 20) 20 meq DAILY PO Last administered on 08:45; Admin Dose 20 MEQ; Start 06/03/17 at 09:00 Fondaparinux (Arixtra) 7.5 mg DAILY SC Last administered on 06/06/17 09:24; Admin Dose 7.5 MG; Start 06/05/17 at 09:00 Warfarin Sodium (Coumadin) 4 mg DAILY@17 PO Last administered on 06/05/17 17: 04; Admin Dose 4 MG; Start 06/05/17 at 17:00; Status Future hold Furosemide 40 mg 40 mg DAILY IV ; Start 06/06/17 at 09:00 Vancomycin HCl/ Sodium Chloride (Vancocin/NS) 150 ml @ 75 mls/hr Q24H IVPB ; Start 06/06/17 at 16:00 RENAY TRAN Jun 06, 2017 11:38
[2017-06-06] MEDS: FLUCONAZOLE 100 MG/NS (PMX) 50 ML IVPB SCH (14:06)
--- NOTE | 2017-06-06 15:29 | CONS ---
Date/Time of Note Date/Time of Note DATE: 06/06/17 TIME: 15:18 Assessment/Plan Assessment/Plan Chief Complaint/Hosp Course IMP: 1.tachycardia-? S Tach/PAF-overall improved when receives BB/CCB regimen [place] device 2.Hypotension-improved/stable/tolerating medications 3.AF-some RVR as dilt/atenolol held 4.Fevers/leukcytosis-increased significantly 5. TIA 6.UTI 7. coagulopathy-s/p Vitamin k and now again therapeutic 8. L sided rib pain-positive TTP/resolved-negative troponin 9. 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 Hypontremia-improved 14. 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 Currently stable 15. CHF-systolic acute on chronic LVEF 40% by echo this admit 16. Pleural effusion s/p L thoracentesis Recc: -Tele -Continue BB/CCB as tolerated -Continue abx's and f/u cx data -urology following -Coumadin now therapeutic and thus will d/c arixtra at this time and follow INR closely -To be transferred to Acute rehab -Will hold lasix and follow BP closely Problems: Consultation Date/Type/Reason Admit Date/Time May 25, 2017 at 00:06 Initial Consult Date 05/25/17 Type of Consultation: cardiology Reason for Consultation tachycardia/af Referring Provider: DUANE NGUYỄN MD Exam/Review of Systems Vital Signs Vitals Vital Signs Date Time Temp Pulse Resp B/P Pulse Ox O2 Delivery O2 Flow Rate FiO2 06/06/17 13:55 97 2.0 06/06/17 13:55 78 20 Nasal Cannula 06/06/17 11:11 98.6 94/51 06/04/17 18:05 36 Intake and Output 06/05/17 06/05/17 06/06/17 15:00 23:00 07:00 Intake Total 400 ml 350 ml Balance 400 ml 350 ml Exam Review of Systems: CONSTITUTIONAL: No fevers, chills. PULMONARY: No sob CARDIOVASCULAR: No chest pain/palpitations GASTROINTESTINAL: No nausea/vomiting. GENITOURINARY: No hematuria/dysuria. MUSCULOSKELETAL: No myagias/arthalgias. PSYCHIATRIC: The patient denies depression. NEUROLOGIC: lethargic Constitutional: alert, oriented Psych: no complaints Head: normocephalic ENMT: mucosa pink and moist Neck: jvd (9 cm water), supple Respiratory: diminished breath sounds (at bases/B) Cardiovascular: irregular rhythm Gastrointestinal: non-tender, soft Musculoskeletal: muscle weakness (generalized) Extremities: edema (none) Neurological: lethargic Results Result Diagram: 06/06/17 0713 06/06/17 0713 Results 24 hrs Laboratory Tests Test 06/06/17 07:13 06/06/17 09:07 White Blood Count 12.0 #H Red Blood Count 3.90 L Hemoglobin 11.3 L Hematocrit 34.7 L Mean Corpuscular Volume 89.0 Mean Corpuscular Hemoglobin 29.0 Mean Corpuscular Hemoglobin Concent 32.6 Red Cell Distribution Width 15.1 H Platelet Count 136 L Mean Platelet Volume 13.6 H Neutrophils % 80.7 H Lymphocytes % 5.4 L Monocytes % 2.5 Eosinophils % 0.1 Basophils % 0.3 Neutrophils # 9.7 H Lymphocytes # 0.7 L Monocytes # 0.3 Eosinophils # 0.0 Basophils # 0.0 Nucleated Red Blood Cells # 0.0 Prothrombin Time 31.8 #H Prothrombin Time Ratio 2.5 INR International Normalized Ratio 3.03 Sodium Level 132 L Potassium Level 4.2 Chloride Level 91 L Carbon Dioxide Level 34 H Anion Gap 11 Blood Urea Nitrogen 29 H Creatinine 0.77 Glucose Level 71 Calcium Level 7.3 L Total Bilirubin 0.2 Direct Bilirubin 0.00 Indirect Bilirubin 0.2 Aspartate Amino Transf (AST/SGOT) 77 H Alanine Aminotransferase (ALT/SGPT) 75 H Alkaline Phosphatase 98 Total Protein 5.0 L Albumin 2.0 L Globulin 3.00 Albumin/Globulin Ratio 0.66 Vancomycin Level Trough 20.1 H Medications Medications Current Medications Lubiprostone (Amitiza) 24 mcg BID PO Last administered on 06/06/17 08:44; Admin Dose 24 MCG; Start 05/25/17 at 09:00 Nitroglycerin (Nitroglycerin (Sl Tab) 0.4 Mg) 0.4 tab PRN SL Last administered on 06/05/17 14:21; Admin Dose 0.4 TAB; Start 05/25/17 at 06:00 Pantoprazole (Protonix Tab) 40 mg DAILY@06 PO Last administered on 06/06/17 06 :29; Admin Dose 40 MG; Start 05/26/17 at 06:00 Acetaminophen (Tylenol Tab) 650 mg Q6H PRN PO PAIN AND OR ELEVATED TEMP Last administered on 06/06/17 02:35; Admin Dose 650 MG; Start 05/25/17 at 06:30 Magnesium Oxide (Mag-Ox 400) 400 mg DAILY PO Last administered on 06/06/17 08: 44; Admin Dose 400 MG; Start 05/26/17 at 09:00 Guaifenesin/ Dextromethorphan (Robitussin Dm Liquid Cup) 5 ml Q4H PRN PO COUGH Last administered on 05/28/17 18:39; Admin Dose 5 ML; Start 05/25/17 at 15:00 Metoprolol Tartrate (Lopressor) 5 mg Q4H PRN IV HR>110 SBP>180mmhg Last administered on 06/01/17 17:11; Admin Dose 5 MG; Start 05/25/17 at 15:30 Lactobacillus Acidophilus/ Rhamnosus (Culturelle) 1 cap DAILY PO Last administered on 06/06/17 08:44; Admin Dose 1 CAP; Start 05/27/17 at 09:00 Atenolol (Tenormin) 25 mg BID PO Last administered on 06/04/17 20:33; Admin Dose 25 MG; Start 05/26/17 at 21:00; Status Future hold Polyethylene Glycol (Miralax) 8.5 gm DAILY PO Last administered on 06/06/17 08 :45; Admin Dose 8.5 GM; Start 05/29/17 at 09:00 Hydromorphone HCl 0.5 mg 0.5 mg Q6H PRN IV PAIN Last administered on 06/02/17 21:32; Admin Dose 0.5 MG; Start 05/29/17 at 01:00 Fluconazole/ Sodium Chloride 50 ml @ 50 mls/hr Q24H IVPB Last administered on 14:06; Admin Dose 50 MLS/HR; Start 05/30/17 at 12:30 Meropenem/Sodium Chloride (Merrem 1 Gm/50 ml (Pmx)) 50 ml @ 200 mls/hr Q12H IVPB Last administered on 06/06/17 02:49; Admin Dose 200 MLS/HR; Start at 03:00 Diltiazem HCl (Cardizem) 30 mg Q8 PO Last administered on 06/06/17 14:06; Admin Dose 30 MG; Start 05/31/17 at 22:00; Status Future hold Bisacodyl (Dulcolax Supp) 10 mg Q48H PRN [place] CONSTIPATION Last administered on 21:23; Admin Dose 10 MG; Start 05/31/17 at 17:00 Ergocalciferol (Drisdol) 50,000 unit Q7D PO ; Start 05/31/17 at 17:00 Multivitamins Therapeutic (Theragran) 1 tab DAILY PO Last administered on 08:44; Admin Dose 1 TAB; Start 06/02/17 at 09:00 Folic Acid (Folic Acid) 1 mg DAILY PO Last administered on 06/06/17 08:44; Admin Dose 1 MG; Start 06/02/17 at 09:00 Thiamine HCl (Vitamin B1) 100 mg DAILY PO Last administered on 06/06/17 08:44 ; Admin Dose 100 MG; Start 06/02/17 at 09:00 Potassium Chloride (Klor-Con 20) 20 meq DAILY PO Last administered on 08:45; Admin Dose 20 MEQ; Start 06/03/17 at 09:00 Fondaparinux (Arixtra) 7.5 mg DAILY SC Last administered on 06/06/17 09:24; Admin Dose 7.5 MG; Start 06/05/17 at 09:00 Furosemide 40 mg 40 mg DAILY IV ; Start 06/06/17 at 09:00 Vancomycin HCl/ Sodium Chloride (Vancocin/NS) 150 ml @ 75 mls/hr Q24H IVPB ; Start 06/06/17 at 16:00 Warfarin Sodium (Coumadin) 3 mg DAILY@17 PO ; Start 06/07/17 at 17:00 PLACIDO COREA Jun 06, 2017 15:28
--- NOTE | 2017-06-06 15:40 | CONS ---
Date/Time of Note Date/Time of Note DATE: 06/06/17 TIME: 15:38 Assessment/Plan Assessment/Plan Chief Complaint/Hosp Course No events overnight, patient is lying comfortably in bed no fevers no shortness of breath Temperature 98.4 pulse 84 respirations 20 blood pressure 117/55 saturation 98 on 2 L WBC 12 H&H 11.3 and 34.7 platelets 136 neutrophils 80.7 BN 29 creatinine 0.77 Pleural fluid cultures preliminary negative repeat blood culture negative Antibiotics: Vancomycin, meropenem, fluconazole Physical examination: Well-developed, fragile [place]ian-speaking elderly woman who is alert in no distress. Head atraumatic normocephalic, sclera nonicteric. Neck is supple. Chest rise symmetrical breath sounds diminished basis, scattered crackles more on the left. Heart: S1, S2. Abdomen soft, bowel tones present. Patient is having left-sided pain on palpation as well as lower back pain. Extremities without cyanosis. Left upper extremity with trace edema. Assessment: 1. Sepsis was resolving leukocytosis 2. Left kidney hematoma versus abscess 3. Exudative left pleural effusion, possible underlying pneumonia, s/p thoracentesis 4. Bacteremia with blood culture on admission grew Bacillus species consistent with contaminant 4. Nina albicans UTI 5. Coronary artery disease with a history of mitral valve mechanical prosthesis and ejection fraction of 40% 6. History of permanent pacemaker 7. Allergy: Penicillin Plan: Remains stable, WBC decreasing, repeat cultures negative, continue abx, follow recommendations of consultants Discussed with staff Problems: Consultation Date/Type/Reason Admit Date/Time May 25, 2017 at 00:06 Initial Consult Date 05/25/17 Type of Consultation: id Referring Provider: DUANE NGUYỄN MD Exam/Review of Systems Vital Signs Vitals Vital Signs Date Time Temp Pulse Resp B/P Pulse Ox O2 Delivery O2 Flow Rate FiO2 06/06/17 15:22 98.4 84 19 117/55 98 06/06/17 13:55 2.0 06/06/17 13:55 Nasal Cannula 06/04/17 18:05 36 Intake and Output 06/05/17 06/05/17 06/06/17 14:59 22:59 06:59 Intake Total 400 ml 350 ml Balance 400 ml 350 ml Results Result Diagram: 06/06/17 0713 06/06/17 0713 Results 24 hrs Laboratory Tests Test 06/06/17 07:13 06/06/17 09:07 White Blood Count 12.0 #H Red Blood Count 3.90 L Hemoglobin 11.3 L Hematocrit 34.7 L Mean Corpuscular Volume 89.0 Mean Corpuscular Hemoglobin 29.0 Mean Corpuscular Hemoglobin Concent 32.6 Red Cell Distribution Width 15.1 H Platelet Count 136 L Mean Platelet Volume 13.6 H Neutrophils % 80.7 H Lymphocytes % 5.4 L Monocytes % 2.5 Eosinophils % 0.1 Basophils % 0.3 Neutrophils # 9.7 H Lymphocytes # 0.7 L Monocytes # 0.3 Eosinophils # 0.0 Basophils # 0.0 Nucleated Red Blood Cells # 0.0 Prothrombin Time 31.8 #H Prothrombin Time Ratio 2.5 INR International Normalized Ratio 3.03 Sodium Level 132 L Potassium Level 4.2 Chloride Level 91 L Carbon Dioxide Level 34 H Anion Gap 11 Blood Urea Nitrogen 29 H Creatinine 0.77 Glucose Level 71 Calcium Level 7.3 L Total Bilirubin 0.2 Direct Bilirubin 0.00 Indirect Bilirubin 0.2 Aspartate Amino Transf (AST/SGOT) 77 H Alanine Aminotransferase (ALT/SGPT) 75 H Alkaline Phosphatase 98 Total Protein 5.0 L Albumin 2.0 L Globulin 3.00 Albumin/Globulin Ratio 0.66 Vancomycin Level Trough 20.1 H Medications Medications Current Medications Lubiprostone (Amitiza) 24 mcg BID PO Last administered on 06/06/17 08:44; Admin Dose 24 MCG; Start 05/25/17 at 09:00 Nitroglycerin (Nitroglycerin (Sl Tab) 0.4 Mg) 0.4 tab PRN SL Last administered on 06/05/17 14:21; Admin Dose 0.4 TAB; Start 05/25/17 at 06:00 Pantoprazole (Protonix Tab) 40 mg DAILY@06 PO Last administered on 06/06/17 06 :29; Admin Dose 40 MG; Start 05/26/17 at 06:00 Acetaminophen (Tylenol Tab) 650 mg Q6H PRN PO PAIN AND OR ELEVATED TEMP Last administered on 06/06/17 02:35; Admin Dose 650 MG; Start 05/25/17 at 06:30 Magnesium Oxide (Mag-Ox 400) 400 mg DAILY PO Last administered on 06/06/17 08: 44; Admin Dose 400 MG; Start 05/26/17 at 09:00 Guaifenesin/ Dextromethorphan (Robitussin Dm Liquid Cup) 5 ml Q4H PRN PO COUGH Last administered on 05/28/17 18:39; Admin Dose 5 ML; Start 05/25/17 at 15:00 Metoprolol Tartrate (Lopressor) 5 mg Q4H PRN IV HR>110 SBP>180mmhg Last administered on 06/01/17 17:11; Admin Dose 5 MG; Start 05/25/17 at 15:30 Lactobacillus Acidophilus/ Rhamnosus (Culturelle) 1 cap DAILY PO Last administered on 06/06/17 08:44; Admin Dose 1 CAP; Start 05/27/17 at 09:00 Atenolol (Tenormin) 25 mg BID PO Last administered on 06/04/17 20:33; Admin Dose 25 MG; Start 05/26/17 at 21:00; Status Future hold Polyethylene Glycol (Miralax) 8.5 gm DAILY PO Last administered on 06/06/17 08 :45; Admin Dose 8.5 GM; Start 05/29/17 at 09:00 Hydromorphone HCl 0.5 mg 0.5 mg Q6H PRN IV PAIN Last administered on 06/02/17 21:32; Admin Dose 0.5 MG; Start 05/29/17 at 01:00 Fluconazole/ Sodium Chloride 50 ml @ 50 mls/hr Q24H IVPB Last administered on 14:06; Admin Dose 50 MLS/HR; Start 05/30/17 at 12:30 Meropenem/Sodium Chloride (Merrem 1 Gm/50 ml (Pmx)) 50 ml @ 200 mls/hr Q12H IVPB Last administered on 06/06/17 02:49; Admin Dose 200 MLS/HR; Start at 03:00 Diltiazem HCl (Cardizem) 30 mg Q8 PO Last administered on 06/06/17 14:06; Admin Dose 30 MG; Start 05/31/17 at 22:00; Status Future hold Bisacodyl (Dulcolax Supp) 10 mg Q48H PRN [place] CONSTIPATION Last administered on 21:23; Admin Dose 10 MG; Start 05/31/17 at 17:00 Ergocalciferol (Drisdol) 50,000 unit Q7D PO ; Start 05/31/17 at 17:00 Multivitamins Therapeutic (Theragran) 1 tab DAILY PO Last administered on 08:44; Admin Dose 1 TAB; Start 06/02/17 at 09:00 Folic Acid (Folic Acid) 1 mg DAILY PO Last administered on 06/06/17 08:44; Admin Dose 1 MG; Start 06/02/17 at 09:00 Thiamine HCl (Vitamin B1) 100 mg DAILY PO Last administered on 06/06/17 08:44 ; Admin Dose 100 MG; Start 06/02/17 at 09:00 Potassium Chloride (Klor-Con 20) 20 meq DAILY PO Last administered on 08:45; Admin Dose 20 MEQ; Start 06/03/17 at 09:00 Furosemide 40 mg 40 mg DAILY IV ; Start 06/06/17 at 09:00; Status Future Hold Vancomycin HCl/ Sodium Chloride (Vancocin/NS) 150 ml @ 75 mls/hr Q24H IVPB ; Start 06/06/17 at 16:00 Warfarin Sodium (Coumadin) 3 mg DAILY@17 PO ; Start 06/07/17 at 17:00 BALDOMERO STARKS NP Jun 06, 2017 15:39
--- NOTE | 2017-06-06 15:44 | CONS ---
Date/Time of Note Date/Time of Note DATE: 06/06/17 TIME: 15:41 Assessment/Plan Assessment/Plan Chief Complaint/Hosp Course 76 yo female on Coumadin admitted for TIA, who was found to have partial thrombosis of internal jugular vein. # Thrombosis while on Coumadin - Given that patient has a prosthetic mitral valve, her anticoagulation options are limited to coumadin but this was on hold because of supratherapeutic INR. Especially since this (IJ clot) is a relatively asymptomatic partial thrombosis, I do not think we need to change anticoagulation at this time. - I would recommend to keep the INR between 2.5-3.5. Given INR was >4 and urology concern for perinephric bleed., patient given one time dose of vit K low dose on 05/31/17. When INR became subtherapeutic, patient restarted on 3 mg coumadin 06/01 and 06/02/17. Patient given 7.5 mg of coumadin on 06/04/[address] Nguyễn and 4 mg coumadin on 06/05/17. Given that patient supratherapeutic on 4 mg dose and takes 3-5 days to see effect of coumadin, will likely see INR continue to rise after 06/04/17 dose. Now INR 3.03. Discussed with pharmacy, coumadin held today and will restart at 3 mg tomorrow. - patient on fondaparinux while INR subtherapeutic for a minimum of 5 days and until INR therapeutic for 2 days. Plan to stop tomorrow if INR > 2.5. HIT screen negative. - Repeat renal US 06/04/17 showed 1. Mild left hydronephrosis. 2. Otherwise normal renal ultrasound. hgb is fairly stable ~11-12 and will follow # UTI -continue antibiotics #Ischemic Cardiomyopathy -management per cardiology Problems: Consultation Date/Type/Reason Admit Date/Time May 25, 2017 at 00:06 Initial Consult Date 05/30/17 Type of Consultation: Hematology Referring Provider: DUANE NGUYỄN MD 24 HR Interval Summary Free Text/Dictation No issues. Exam/Review of Systems Vital Signs Vitals Vital Signs Date Time Temp Pulse Resp B/P Pulse Ox O2 Delivery O2 Flow Rate FiO2 06/06/17 15:22 98.4 84 19 117/55 98 06/06/17 13:55 2.0 06/06/17 13:55 Nasal Cannula 06/04/17 18:05 36 Intake and Output 06/05/17 06/05/17 06/06/17 15:00 23:00 07:00 Intake Total 400 ml 350 ml Balance 400 ml 350 ml Exam Constitutional: alert, oriented Psych: nl mood/affect Eyes: nl conjunctiva Neck: supple Respiratory: normal air movement Results Result Diagram: 06/06/17 0713 06/06/17 0713 Results 24 hrs Laboratory Tests Test 06/06/17 07:13 06/06/17 09:07 White Blood Count 12.0 #H Red Blood Count 3.90 L Hemoglobin 11.3 L Hematocrit 34.7 L Mean Corpuscular Volume 89.0 Mean Corpuscular Hemoglobin 29.0 Mean Corpuscular Hemoglobin Concent 32.6 Red Cell Distribution Width 15.1 H Platelet Count 136 L Mean Platelet Volume 13.6 H Neutrophils % 80.7 H Lymphocytes % 5.4 L Monocytes % 2.5 Eosinophils % 0.1 Basophils % 0.3 Neutrophils # 9.7 H Lymphocytes # 0.7 L Monocytes # 0.3 Eosinophils # 0.0 Basophils # 0.0 Nucleated Red Blood Cells # 0.0 Prothrombin Time 31.8 #H Prothrombin Time Ratio 2.5 INR International Normalized Ratio 3.03 Sodium Level 132 L Potassium Level 4.2 Chloride Level 91 L Carbon Dioxide Level 34 H Anion Gap 11 Blood Urea Nitrogen 29 H Creatinine 0.77 Glucose Level 71 Calcium Level 7.3 L Total Bilirubin 0.2 Direct Bilirubin 0.00 Indirect Bilirubin 0.2 Aspartate Amino Transf (AST/SGOT) 77 H Alanine Aminotransferase (ALT/SGPT) 75 H Alkaline Phosphatase 98 Total Protein 5.0 L Albumin 2.0 L Globulin 3.00 Albumin/Globulin Ratio 0.66 Vancomycin Level Trough 20.1 H Medications Medications Current Medications Lubiprostone (Amitiza) 24 mcg BID PO Last administered on 06/06/17 08:44; Admin Dose 24 MCG; Start 05/25/17 at 09:00 Nitroglycerin (Nitroglycerin (Sl Tab) 0.4 Mg) 0.4 tab PRN SL Last administered on 06/05/17 14:21; Admin Dose 0.4 TAB; Start 05/25/17 at 06:00 Pantoprazole (Protonix Tab) 40 mg DAILY@06 PO Last administered on 06/06/17 06 :29; Admin Dose 40 MG; Start 05/26/17 at 06:00 Acetaminophen (Tylenol Tab) 650 mg Q6H PRN PO PAIN AND OR ELEVATED TEMP Last administered on 06/06/17 02:35; Admin Dose 650 MG; Start 05/25/17 at 06:30 Magnesium Oxide (Mag-Ox 400) 400 mg DAILY PO Last administered on 06/06/17 08: 44; Admin Dose 400 MG; Start 05/26/17 at 09:00 Guaifenesin/ Dextromethorphan (Robitussin Dm Liquid Cup) 5 ml Q4H PRN PO COUGH Last administered on 05/28/17 18:39; Admin Dose 5 ML; Start 05/25/17 at 15:00 Metoprolol Tartrate (Lopressor) 5 mg Q4H PRN IV HR>110 SBP>180mmhg Last administered on 06/01/17 17:11; Admin Dose 5 MG; Start 05/25/17 at 15:30 Lactobacillus Acidophilus/ Rhamnosus (Culturelle) 1 cap DAILY PO Last administered on 06/06/17 08:44; Admin Dose 1 CAP; Start 05/27/17 at 09:00 Atenolol (Tenormin) 25 mg BID PO Last administered on 06/04/17 20:33; Admin Dose 25 MG; Start 05/26/17 at 21:00; Status Future hold Polyethylene Glycol (Miralax) 8.5 gm DAILY PO Last administered on 06/06/17 08 :45; Admin Dose 8.5 GM; Start 05/29/17 at 09:00 Hydromorphone HCl 0.5 mg 0.5 mg Q6H PRN IV PAIN Last administered on 06/02/17 21:32; Admin Dose 0.5 MG; Start 05/29/17 at 01:00 Fluconazole/ Sodium Chloride 50 ml @ 50 mls/hr Q24H IVPB Last administered on 14:06; Admin Dose 50 MLS/HR; Start 05/30/17 at 12:30 Meropenem/Sodium Chloride (Merrem 1 Gm/50 ml (Pmx)) 50 ml @ 200 mls/hr Q12H IVPB Last administered on 06/06/17 02:49; Admin Dose 200 MLS/HR; Start at 03:00 Diltiazem HCl (Cardizem) 30 mg Q8 PO Last administered on 06/06/17 14:06; Admin Dose 30 MG; Start 05/31/17 at 22:00; Status Future hold Bisacodyl (Dulcolax Supp) [address] CONSTIPATION Last administered on 21:23; Admin Dose 10 MG; Start 05/31/17 at 17:00 Ergocalciferol (Drisdol) 50,000 unit Q7D PO ; Start 05/31/17 at 17:00 Multivitamins Therapeutic (Theragran) 1 tab DAILY PO Last administered on 08:44; Admin Dose 1 TAB; Start 06/02/17 at 09:00 Folic Acid (Folic Acid) 1 mg DAILY PO Last administered on 06/06/17 08:44; Admin Dose 1 MG; Start 06/02/17 at 09:00 Thiamine HCl (Vitamin B1) 100 mg DAILY PO Last administered on 06/06/17 08:44 ; Admin Dose 100 MG; Start 06/02/17 at 09:00 Potassium Chloride (Klor-Con 20) 20 meq DAILY PO Last administered on 08:45; Admin Dose 20 MEQ; Start 06/03/17 at 09:00 Furosemide 40 mg 40 mg DAILY IV ; Start 06/06/17 at 09:00; Status Future Hold Vancomycin HCl/ Sodium Chloride (Vancocin/NS) 150 ml @ 75 mls/hr Q24H IVPB ; Start 06/06/17 at 16:00 Warfarin Sodium (Coumadin) 3 mg DAILY@17 PO ; Start 06/07/17 at 17:00 TODEONTE MD Jun 06, 2017 15:44
[2017-06-06] MEDS: VANCOMYCIN 750 MG in SOD CHLORIDE 0.9% 150 ML IVPB SCH (15:50)
--- NOTE | 2017-06-06 17:30 | CONS ---
Date/Time of Note Date/Time of Note DATE: 06/06/17 TIME: 17:28 Consult Date/Type/Reason Admit Date/Time May 25, 2017 at 00:06 Initial Consult Date 06/02/17 Type of Consultation: Pulmonary ICU Ordering Provider: DUANE NGUYỄN MD Subjective Patient comfortable this morning Objective Vital Signs Date Time Temp Pulse Resp B/P Pulse Ox O2 Delivery O2 Flow Rate FiO2 06/06/17 17:08 2.0 06/06/17 16:50 90 06/06/17 15:22 98.4 19 117/55 98 06/06/17 13:55 Nasal Cannula 06/04/17 18:05 36 Intake and Output 06/05/17 06/05/17 06/06/17 14:59 22:59 06:59 Intake Total 400 ml 350 ml Balance 400 ml 350 ml Exam GENERAL: Elderly lady comfortable at rest no acute distress VITAL SIGNS: per chart NECK: Supple. No JVD or lymphadenopathy. CARDIAC EXAM: S1, S2. No added sounds or murmurs. CHEST: clear bilaterally, No added sounds, rales or wheezes ABDOMEN: Soft, nontender. No guarding or rebound. EXTREMITIES: No cyanosis, clubbing or edema. NEUROLOGIC: Generalized weakness. No focal deficits. Results/Medications Result Diagram: 06/06/1713 06/06/17 0713 Results 24 hrs Laboratory Tests Test 06/06/17 07:13 06/06/17 09:07 White Blood Count 12.0 #H Red Blood Count 3.90 L Hemoglobin 11.3 L Hematocrit 34.7 L Mean Corpuscular Volume 89.0 Mean Corpuscular Hemoglobin 29.0 Mean Corpuscular Hemoglobin Concent 32.6 Red Cell Distribution Width 15.1 H Platelet Count 136 L Mean Platelet Volume 13.6 H Neutrophils % 80.7 H Lymphocytes % 5.4 L Monocytes % 2.5 Eosinophils % 0.1 Basophils % 0.3 Neutrophils # 9.7 H Lymphocytes # 0.7 L Monocytes # 0.3 Eosinophils # 0.0 Basophils # 0.0 Nucleated Red Blood Cells # 0.0 Prothrombin Time 31.8 #H Prothrombin Time Ratio 2.5 INR International Normalized Ratio 3.03 Sodium Level 132 L Potassium Level 4.2 Chloride Level 91 L Carbon Dioxide Level 34 H Anion Gap 11 Blood Urea Nitrogen 29 H Creatinine 0.77 Glucose Level 71 Calcium Level 7.3 L Total Bilirubin 0.2 Direct Bilirubin 0.00 Indirect Bilirubin 0.2 Aspartate Amino Transf (AST/SGOT) 77 H Alanine Aminotransferase (ALT/SGPT) 75 H Alkaline Phosphatase 98 Total Protein 5.0 L Albumin 2.0 L Globulin 3.00 Albumin/Globulin Ratio 0.66 Vancomycin Level Trough 20.1 H Medications Current Medications Lubiprostone (Amitiza) 24 mcg BID PO Last administered on 06/06/17 08:44; Admin Dose 24 MCG; Start 05/25/17 at 09:00 Nitroglycerin (Nitroglycerin (Sl Tab) 0.4 Mg) 0.4 tab PRN SL Last administered on 06/05/17 14:21; Admin Dose 0.4 TAB; Start 05/25/17 at 06:00 Pantoprazole (Protonix Tab) 40 mg DAILY@06 PO Last administered on 06/06/17 06 :29; Admin Dose 40 MG; Start 05/26/17 at 06:00 Acetaminophen (Tylenol Tab) 650 mg Q6H PRN PO PAIN AND OR ELEVATED TEMP Last administered on 06/06/17 02:35; Admin Dose 650 MG; Start 05/25/17 at 06:30 Magnesium Oxide (Mag-Ox 400) 400 mg DAILY PO Last administered on 06/06/17 08: 44; Admin Dose 400 MG; Start 05/26/17 at 09:00 Guaifenesin/ Dextromethorphan (Robitussin Dm Liquid Cup) 5 ml Q4H PRN PO COUGH Last administered on 05/28/17 18:39; Admin Dose 5 ML; Start 05/25/17 at 15:00 Metoprolol Tartrate (Lopressor) 5 mg Q4H PRN IV HR>110 SBP>180mmhg Last administered on 06/01/17 17:11; Admin Dose 5 MG; Start 05/25/17 at 15:30 Lactobacillus Acidophilus/ Rhamnosus (Culturelle) 1 cap DAILY PO Last administered on 06/06/17 08:44; Admin Dose 1 CAP; Start 05/27/17 at 09:00 Atenolol (Tenormin) 25 mg BID PO Last administered on 06/04/17 20:33; Admin Dose 25 MG; Start 05/26/17 at 21:00; Status Future hold Polyethylene Glycol (Miralax) 8.5 gm DAILY PO Last administered on 06/06/17 08 :45; Admin Dose 8.5 GM; Start 05/29/17 at 09:00 Hydromorphone HCl 0.5 mg 0.5 mg Q6H PRN IV PAIN Last administered on 06/02/17 21:32; Admin Dose 0.5 MG; Start 05/29/17 at 01:00 Fluconazole/ Sodium Chloride 50 ml @ 50 mls/hr Q24H IVPB Last administered on 14:06; Admin Dose 50 MLS/HR; Start 05/30/17 at 12:30 Meropenem/Sodium Chloride (Merrem 1 Gm/50 ml (Pmx)) 50 ml @ 200 mls/hr Q12H IVPB Last administered on 06/06/17 15:50; Admin Dose 200 MLS/HR; Start at 03:00 Diltiazem HCl (Cardizem) 30 mg Q8 PO Last administered on 06/06/17 14:06; Admin Dose 30 MG; Start 05/31/17 at 22:00; Status Future hold Bisacodyl (Dulcolax Supp) 10 mg Q48H PRN CO CONSTIPATION Last administered on 21:23; Admin Dose 10 MG; Start 05/31/17 at 17:00 Ergocalciferol (Drisdol) 50,000 unit Q7D PO ; Start 05/31/17 at 17:00 Multivitamins Therapeutic (Theragran) 1 tab DAILY PO Last administered on 08:44; Admin Dose 1 TAB; Start 06/02/17 at 09:00 Folic Acid (Folic Acid) 1 mg DAILY PO Last administered on 06/06/17 08:44; Admin Dose 1 MG; Start 06/02/17 at 09:00 Thiamine HCl (Vitamin B1) 100 mg DAILY PO Last administered on 06/06/17 08:44 ; Admin Dose 100 MG; Start 06/02/17 at 09:00 Potassium Chloride (Klor-Con 20) 20 meq DAILY PO Last administered on 08:45; Admin Dose 20 MEQ; Start 06/03/17 at 09:00 Furosemide 40 mg 40 mg DAILY IV ; Start 06/06/17 at 09:00; Status Future Hold Vancomycin HCl/ Sodium Chloride (Vancocin/NS) 150 ml @ 75 mls/hr Q24H IVPB Last administered on 06/06/17t 15:50; Admin Dose 75 MLS/HR; Start 06/06/17 at 16 :00 Warfarin Sodium (Coumadin) 3 mg DAILY@17 PO ; Start 06/07/17 at 17:00 Assessment/Plan Chief Complaint/Hosp Course Assessment 1. Left renal hematoma surrounding effusion and ascites. Currently being evaluated by urology. Renal ultrasound noted 2. Left pleural effusion with compressive atelectasis unclear etiology possibly secondary to underlying cardiac disease versus pneumonia. Status post thoracentesis pleural fluid studies is pending 3. Recent bacteremia continues antibiotics per infectious diseases 4. Supratherapeutic INR on admission, deep vein thrombosis. 5. Ischemic cardiomyopathy Recommendation 1. Pleural fluid studies noted. Initial findings consistent with transudate given low protein 2. Continue urology recommendations 3. O2 as needed 4. Continue anticoagulation per hematology oncology Encourage out of bed if tolerated Agree with acute rehab evaluation Problems: J[facility]ARDY [facility], [facility] Jun 06, 2017 17:30
[2017-06-07] VITALS (14 sets, daily range): BP systolic 97–122; BP diastolic 48–64; PULSE 75–93; RESP 17–19
[2017-06-07] MEDS: LEVALBUTEROL (NEB) 0.63 MG/3 ML AMP HHN SCH ×4 (01:43→20:18)
[2017-06-07] MEDS: MEROPENEM 1 GM/50ML(PMX) 50 ML IVPB SCH ×2 (02:28→16:03)
[2017-06-07] MEDS: PANTOPRAZOLE (EC) 40 MG TAB PO SCH (06:16)
[2017-06-07] MEDS: DILTIAZEM 30 MG TAB PO SCH ×3 (06:16→21:27)
[2017-06-07] MEDS: LEVOTHYROXINE 75 MCG TAB PO SCH (06:19)
[2017-06-07 07:39] LABS: HEMOGLOBIN 11.7 g/dl (12.0-16.0)
[2017-06-07 08:03] LABS: INR 3.49; PROTIME 35.6 Sec (12.2-14.2); PT RATIO 2.8
[2017-06-07] MEDS: ATENOLOL 25 MG TAB PO SCH ×2 (09:00→21:00)
[2017-06-07] MEDS: LACTOBACILLUS RHAMNOSUS CAP PO SCH (09:19)
[2017-06-07] MEDS: MULTIVITAMINS THERAPEUTIC TAB PO SCH (09:19)
[2017-06-07] MEDS: LUBIPROSTONE 24 MCG CAP PO SCH ×2 (09:19→21:25)
[2017-06-07] MEDS: FOLIC ACID 1 MG TAB PO SCH (09:19)
[2017-06-07] MEDS: MAGNESIUM OXIDE 400 MG TAB PO SCH (09:19)
[2017-06-07] MEDS: POLYETHYLENE GLYCOL 17 GM PACKET PO SCH (09:19)
[2017-06-07] MEDS: THIAMINE 100 MG TAB PO SCH (09:19)
[2017-06-07] MEDS: POTASSIUM CHLORIDE (SR) 20 MEQ TAB PO SCH (09:20)
--- NOTE | 2017-06-07 12:48 | PN ---
Date/Time of Note Date/Time of Note DATE: 06/07/17 TIME: 12:47 Assessment/Plan VTE Prophylaxis VTE Prophylaxis Intervention: SCD's Lines/Catheters IV [facility]from [facility] [place] [facility] Urinary Cath still in place: No Assessment/Plan Chief Complaint/Hosp Course 1. SEPSIS resolving 2. AFIB, controlled 3. HTN, controlled 4. ASHD 5. hyponatremia 6. recurrent UTI 7. LOW EF 8. low platelets 9. Anemia 10. urinary incontinence 11. Constipation 12. Vit d deficiency Problems: Assessment/Plan 1.. Discharge pending with A/b and home health Subjective 24 Hr Interval Summary Constitutional: improved, no complaints Exam/Review of Systems Vital Signs Vitals Vital Signs Date Time Temp Pulse Resp B/P Pulse Ox O2 Delivery O2 Flow Rate FiO2 06/07/17 12:33 75 06/07/17 11:20 98.1 19 110/58 97 06/07/17 07:55 Nasal Cannula 2.0 06/04/17 18:05 36 Intake and Output 06/06/17 06/06/17 06/07/17 15:00 23:00 07:00 Intake Total 950 ml 200 ml Output Total 400 ml Balance 950 ml -200 ml Exam Head: atraumatic, normocephalic Cardiovascular: regular rate and rhythm Gastrointestinal: soft Genitourinary - Female: CVA tenderness, No CMT, No nl adnexae, No nl external genitalia, No other, No uterus Results Result Diagram: 06/07/17 0715 06/06/17 0713 Results 24 hrs Laboratory Tests Test 06/07/17 07:15 Hemoglobin 11.7 L Hematocrit 35.0 L Prothrombin Time 35.6 H Prothrombin Time Ratio 2.8 INR International Normalized Ratio 3.49 Medications Medications Current Medications Lubiprostone (Amitiza) 24 mcg BID PO Last administered on 06/07/17 09:19; Admin Dose 24 MCG; Start 05/25/17 at 09:00 Nitroglycerin (Nitroglycerin (Sl Tab) 0.4 Mg) 0.4 tab PRN SL Last administered on 06/05/17 14:21; Admin Dose 0.4 TAB; Start 05/25/17 at 06:00 Pantoprazole (Protonix Tab) 40 mg DAILY@06 PO Last administered on 06/07/17 06 :16; Admin Dose 40 MG; Start 05/26/17 at 06:00 Acetaminophen (Tylenol Tab) 650 mg Q6H PRN PO PAIN AND OR ELEVATED TEMP Last administered on 06/06/17 19:36; Admin Dose 650 MG; Start 05/25/17 at 06:30 Magnesium Oxide (Mag-Ox 400) 400 mg DAILY PO Last administered on 06/07/17 09: 19; Admin Dose 400 MG; Start 05/26/17 at 09:00 Guaifenesin/ Dextromethorphan (Robitussin Dm Liquid Cup) 5 ml Q4H PRN PO COUGH Last administered on 05/28/17 18:39; Admin Dose 5 ML; Start 05/25/17 at 15:00 Metoprolol Tartrate (Lopressor) 5 mg Q4H PRN IV HR>110 SBP>180mmhg Last administered on 06/01/17 17:11; Admin Dose 5 MG; Start 05/25/17 at 15:30 Lactobacillus Acidophilus/ Rhamnosus (Culturelle) 1 cap DAILY PO Last administered on 06/07/17 09:19; Admin Dose 1 CAP; Start 05/27/17 at 09:00 Atenolol (Tenormin) 25 mg BID PO Last administered on 06/04/17 20:33; Admin Dose 25 MG; Start 05/26/17 at 21:00; Status Future hold Polyethylene Glycol (Miralax) 8.5 gm DAILY PO Last administered on 06/07/17 09 :19; Admin Dose 8.5 GM; Start 05/29/17 at 09:00 Hydromorphone HCl 0.5 mg 0.5 mg Q6H PRN IV PAIN Last administered on 06/02/17 21:32; Admin Dose 0.5 MG; Start 05/29/17 at 01:00 Fluconazole/ Sodium Chloride 50 ml @ 50 mls/hr Q24H IVPB Last administered on 14:06; Admin Dose 50 MLS/HR; Start 05/30/17 at 12:30 Meropenem/Sodium Chloride (Merrem 1 Gm/50 ml (Pmx)) 50 ml @ 200 mls/hr Q12H IVPB Last administered on 06/07/17 02:28; Admin Dose 200 MLS/HR; Start at 03:00 Diltiazem HCl (Cardizem) 30 mg Q8 PO Last administered on 06/07/17 06:16; Admin Dose 30 MG; Start 05/31/17 at 22:00; Status Future hold Bisacodyl (Dulcolax Supp) 10 mg Q48H PRN [place] CONSTIPATION Last administered on 21:23; Admin Dose 10 MG; Start 05/31/17 at 17:00 Ergocalciferol (Drisdol) 50,000 unit Q7D PO ; Start 05/31/17 at 17:00 Multivitamins Therapeutic (Theragran) 1 tab DAILY PO Last administered on 09:19; Admin Dose 1 TAB; Start 06/02/17 at 09:00 Folic Acid (Folic Acid) 1 mg DAILY PO Last administered on 06/07/17 09:19; Admin Dose 1 MG; Start 06/02/17 at 09:00 Thiamine HCl (Vitamin B1) 100 mg DAILY PO Last administered on 06/07/17 09:19 ; Admin Dose 100 MG; Start 06/02/17 at 09:00 Potassium Chloride (Klor-Con 20) 20 meq DAILY PO Last administered on 09:20; Admin Dose 20 MEQ; Start 06/03/17 at 09:00 Furosemide 40 mg 40 mg DAILY IV ; Start 06/06/17 at 09:00; Status Future Hold Vancomycin HCl/ Sodium Chloride (Vancocin/NS) 150 ml @ 75 mls/hr Q24H IVPB Last administered on 06/06/17 15:50; Admin Dose 75 MLS/HR; Start 06/06/17 at 16 :00 Warfarin Sodium (Coumadin) 3 mg DAILY@17 PO ; Start 06/07/17 at 17:00; Status Future Hold RENAY TRAN Jun 07, 2017 12:48
[2017-06-07] MEDS: FLUCONAZOLE 100 MG/NS (PMX) 50 ML IVPB SCH (13:07)
--- NOTE | 2017-06-07 14:41 | CONS ---
Date/Time of Note Date/Time of Note DATE: 06/07/17 TIME: 14:38 Assessment/Plan Assessment/Plan Chief Complaint/Hosp Course Alert, tachypneic with exertion, family at bedside, she is in no distress Temperature 98 pulse 80 respirations 20 blood pressure 110/58 saturation 97% no labs this morning Microbiology: Pleural fluid cultures remain negative Antibiotics: Vancomycin, meropenem, fluconazole Physical examination: Well-developed, fragile [place]-speaking elderly woman who is alert in no distress. Head atraumatic normocephalic, sclera nonicteric. Neck is supple. Chest rise symmetrical breath sounds diminished basis, scattered crackles more on the left. Heart: S1, S2. Abdomen soft, bowel tones present. Patient is having left-sided pain on palpation as well as lower back pain. Extremities without cyanosis. Left upper extremity with trace edema. Assessment: 1. Sepsis was resolving leukocytosis 2. Left kidney hematoma versus abscess 3. Exudative left pleural effusion, possible underlying pneumonia, s/p thoracentesis 4. Bacteremia with blood culture on admission grew Bacillus species consistent with contaminant 4. Nina albicans UTI 5. Coronary artery disease with a history of mitral valve mechanical prosthesis and ejection fraction of 40% 6. History of permanent pacemaker 7. Allergy: Penicillin Plan: Stable, continue present care, antibiotics, follow pulmonary and urology recommendations, follow chest x-ray and labs Discussed with staff Problems: Consultation Date/Type/Reason Admit Date/Time May 25, 2017 at 00:06 Initial Consult Date 05/25/17 Type of Consultation: ID Referring Provider: DUANE NGUYỄN MD Exam/Review of Systems Vital Signs Vitals Vital Signs Date Time Temp Pulse Resp B/P Pulse Ox O2 Delivery O2 Flow Rate FiO2 06/07/17 12:33 75 06/07/17 11:20 98.1 19 110/58 97 06/07/17 08:00 Nasal Cannula 3.0 06/04/17 18:05 36 Intake and Output 06/06/17 06/06/17 06/07/17 15:00 23:00 07:00 Intake Total 950 ml 200 ml Output Total 400 ml Balance 950 ml -200 ml Results Result Diagram: 06/07/17 0715 06/06/17 0713 Results 24 hrs Laboratory Tests Test 06/07/17 07:15 Hemoglobin 11.7 L Hematocrit 35.0 L Prothrombin Time 35.6 H Prothrombin Time Ratio 2.8 INR International Normalized Ratio 3.49 Medications Medications Current Medications Lubiprostone (Amitiza) 24 mcg BID PO Last administered on 06/07/17 09:19; Admin Dose 24 MCG; Start 05/25/17 at 09:00 Nitroglycerin (Nitroglycerin (Sl Tab) 0.4 Mg) 0.4 tab PRN SL Last administered on 06/05/17 14:21; Admin Dose 0.4 TAB; Start 05/25/17 at 06:00 Pantoprazole (Protonix Tab) 40 mg DAILY@06 PO Last administered on 06/07/17 06 :16; Admin Dose 40 MG; Start 05/26/17 at 06:00 Acetaminophen (Tylenol Tab) 650 mg Q6H PRN PO PAIN AND OR ELEVATED TEMP Last administered on 06/06/17 19:36; Admin Dose 650 MG; Start 05/25/17 at 06:30 Magnesium Oxide (Mag-Ox 400) 400 mg DAILY PO Last administered on 06/07/17 09: 19; Admin Dose 400 MG; Start 05/26/17 at 09:00 Guaifenesin/ Dextromethorphan (Robitussin Dm Liquid Cup) 5 ml Q4H PRN PO COUGH Last administered on 05/28/17 18:39; Admin Dose 5 ML; Start 05/25/17 at 15:00 Metoprolol Tartrate (Lopressor) 5 mg Q4H PRN IV HR>110 SBP>180mmhg Last administered on 06/01/17 17:11; Admin Dose 5 MG; Start 05/25/17 at 15:30 Lactobacillus Acidophilus/ Rhamnosus (Culturelle) 1 cap DAILY PO Last administered on 06/07/17 09:19; Admin Dose 1 CAP; Start 05/27/17 at 09:00 Atenolol (Tenormin) 25 mg BID PO Last administered on 06/04/17 20:33; Admin Dose 25 MG; Start 05/26/17 at 21:00; Status Future hold Polyethylene Glycol (Miralax) 8.5 gm DAILY PO Last administered on 06/07/17 09 :19; Admin Dose 8.5 GM; Start 05/29/17 at 09:00 Hydromorphone HCl 0.5 mg 0.5 mg Q6H PRN IV PAIN Last administered on 06/02/17 21:32; Admin Dose 0.5 MG; Start 05/29/17 at 01:00 Fluconazole/ Sodium Chloride 50 ml @ 50 mls/hr Q24H IVPB Last administered on 13:07; Admin Dose 50 MLS/HR; Start 05/30/17 at 12:30 Meropenem/Sodium Chloride (Merrem 1 Gm/50 ml (Pmx)) 50 ml @ 200 mls/hr Q12H IVPB Last administered on 06/07/17 02:28; Admin Dose 200 MLS/HR; Start at 03:00 Diltiazem HCl (Cardizem) 30 mg Q8 PO Last administered on 06/07/17 13:07; Admin Dose 30 MG; Start 05/31/17 at 22:00; Status Future hold Bisacodyl (Dulcolax Supp) 10 mg Q48H PRN [place] CONSTIPATION Last administered on 21:23; Admin Dose 10 MG; Start 05/31/17 at 17:00 Ergocalciferol (Drisdol) 50,000 unit Q7D PO ; Start 05/31/17 at 17:00 Multivitamins Therapeutic (Theragran) 1 tab DAILY PO Last administered on 09:19; Admin Dose 1 TAB; Start 06/02/17 at 09:00 Folic Acid (Folic Acid) 1 mg DAILY PO Last administered on 06/07/17 09:19; Admin Dose 1 MG; Start 06/02/17 at 09:00 Thiamine HCl (Vitamin B1) 100 mg DAILY PO Last administered on 06/07/17 09:19 ; Admin Dose 100 MG; Start 06/02/17 at 09:00 Potassium Chloride (Klor-Con 20) 20 meq DAILY PO Last administered on 09:20; Admin Dose 20 MEQ; Start 06/03/17 at 09:00 Furosemide 40 mg 40 mg DAILY IV ; Start 06/06/17 at 09:00; Status Future Hold Vancomycin HCl/ Sodium Chloride (Vancocin/NS) 150 ml @ 75 mls/hr Q24H IVPB Last administered on 06/06/17 15:50; Admin Dose 75 MLS/HR; Start 06/06/17 at 16 :00 Warfarin Sodium (Coumadin) 3 mg DAILY@17 PO ; Start 06/07/17 at 17:00; Status Future Hold BALDOMERO STARKS NP Jun 07, 2017 14:41
[2017-06-07] MEDS ORDERED: WARFARIN 3 MG TAB PO SCH (17:00)
[2017-06-07] MEDS: ERGOCALCIFEROL 50,000 UNIT CAP PO SCH (17:06)
[2017-06-07] MEDS: VANCOMYCIN 750 MG in SOD CHLORIDE 0.9% 150 ML IVPB SCH (17:07)
--- NOTE | 2017-06-07 17:30 | CONS ---
Date/Time of Note Date/Time of Note DATE: 06/07/17 TIME: 17:26 Assessment/Plan Assessment/Plan Additional Assessment/Plan Atrial fibrillation s/p PPM TIA UTI L IJ thrombosis CHF-systolic acute on chronic LVEF 40% Pleural effusion s/p L thoracentesis Continue Atenolol Keep Mag > 2 and Potassium > 4 Continue Antibiotics Hold Coumadin today Consultation Date/Type/Reason Admit Date/Time May 25, 2017 at 00:06 Constitutional: improved, no complaints Eyes: no complaints ENT: no complaints Respiratory: no complaints Cardiovascular: no complaints Gastrointestinal: constipation, No nausea, No vomiting Genitourinary: No bleeding, No hematuria Musculoskeletal: no complaints Skin: no complaints Neurologic: no complaints Endocrine: no complaints Lymphatic: no complaints Psychological: no complaints Immunologic: no complaints Past Medical History Medical History: other (Atrial fibrillation, pacemaker and mitral valve replacement) Past Surgical History Past Surgical Hx: cholecystectomy, other (Pacemaker, mitral valve replacement, splenectomy) Social History Alcohol Use: none Smoking Status: Never smoker Drug Use: none Exam/Review of Systems Vital Signs Vitals Vital Signs Date Time Temp Pulse Resp B/P Pulse Ox O2 Delivery O2 Flow Rate FiO2 06/07/17 16:35 93 06/07/17 16:19 98.0 19 115/60 98 06/07/17 15:27 Nasal Cannula 3.0 06/04/17 18:05 36 Intake and Output 06/06/17 06/06/17 06/07/17 15:00 23:00 07:00 Intake Total 950 ml 200 ml Output Total 400 ml Balance 950 ml -200 ml Exam Head: atraumatic, normocephalic Neck: non-tender, supple Respiratory: diminished breath sounds Cardiovascular: irregular rhythm Gastrointestinal: nl liver, spleen, non-tender, soft Results Result Diagram: 06/07/17 0715 06/06/17 0713 Results 24 hrs Laboratory Tests Test 06/07/17 07:15 Hemoglobin 11.7 L Hematocrit 35.0 L Prothrombin Time 35.6 H Prothrombin Time Ratio 2.8 INR International Normalized Ratio 3.49 Medications Medications Current Medications Lubiprostone (Amitiza) 24 mcg BID PO Last administered on 06/07/17t 09:19; Admin Dose 24 MCG; Start 05/25/17 at 09:00 Nitroglycerin (Nitroglycerin (Sl Tab) 0.4 Mg) 0.4 tab PRN SL Last administered on 06/05/17 14:21; Admin Dose 0.4 TAB; Start 05/25/17 at 06:00 Pantoprazole (Protonix Tab) 40 mg DAILY@06 PO Last administered on 06/07/17 06 :16; Admin Dose 40 MG; Start 05/26/17 at 06:00 Acetaminophen (Tylenol Tab) 650 mg Q6H PRN PO PAIN AND OR ELEVATED TEMP Last administered on 06/06/17 19:36; Admin Dose 650 MG; Start 05/25/17 at 06:30 Magnesium Oxide (Mag-Ox 400) 400 mg DAILY PO Last administered on 06/07/17 09: 19; Admin Dose 400 MG; Start 05/26/17 at 09:00 Guaifenesin/ Dextromethorphan (Robitussin Dm Liquid Cup) 5 ml Q4H PRN PO COUGH Last administered on 05/28/17 18:39; Admin Dose 5 ML; Start 05/25/17 at 15:00 Metoprolol Tartrate (Lopressor) 5 mg Q4H PRN IV HR>110 SBP>180mmhg Last administered on 06/01/17 17:11; Admin Dose 5 MG; Start 05/25/17 at 15:30 Lactobacillus Acidophilus/ Rhamnosus (Culturelle) 1 cap DAILY PO Last administered on 06/07/17 09:19; Admin Dose 1 CAP; Start 05/27/17 at 09:00 Atenolol (Tenormin) 25 mg BID PO Last administered on 06/04/17 20:33; Admin Dose 25 MG; Start 05/26/17 at 21:00; Status Future hold Polyethylene Glycol (Miralax) 8.5 gm DAILY PO Last administered on 06/07/17 09 :19; Admin Dose 8.5 GM; Start 05/29/17 at 09:00 Hydromorphone HCl 0.5 mg 0.5 mg Q6H PRN IV PAIN Last administered on 06/02/17 21:32; Admin Dose 0.5 MG; Start 05/29/17 at 01:00 Fluconazole/ Sodium Chloride 50 ml @ 50 mls/hr Q24H IVPB Last administered on 13:07; Admin Dose 50 MLS/HR; Start 05/30/17 at 12:30 Meropenem/Sodium Chloride (Merrem 1 Gm/50 ml (Pmx)) 50 ml @ 200 mls/hr Q12H IVPB Last administered on 06/07/17 16:03; Admin Dose 200 MLS/HR; Start at 03:00 Diltiazem HCl (Cardizem) 30 mg Q8 PO Last administered on 06/07/17 13:07; Admin Dose 30 MG; Start 05/31/17 at 22:00; Status Future hold Bisacodyl (Dulcolax Supp) 10 mg Q48H PRN [place] CONSTIPATION Last administered on 21:23; Admin Dose 10 MG; Start 05/31/17 at 17:00 Ergocalciferol (Drisdol) 50,000 unit Q7D PO Last administered on 06/07/17 17: 06; Admin Dose 50,000 UNIT; Start 05/31/17 at 17:00 Multivitamins Therapeutic (Theragran) 1 tab DAILY PO Last administered on 09:19; Admin Dose 1 TAB; Start 06/02/17 at 09:00 Folic Acid (Folic Acid) 1 mg DAILY PO Last administered on 06/07/17 09:19; Admin Dose 1 MG; Start 06/02/17 at 09:00 Thiamine HCl (Vitamin B1) 100 mg DAILY PO Last administered on 06/07/17 09:19 ; Admin Dose 100 MG; Start 06/02/17 at 09:00 Potassium Chloride (Klor-Con 20) 20 meq DAILY PO Last administered on 09:20; Admin Dose 20 MEQ; Start 06/03/17 at 09:00 Furosemide 40 mg 40 mg DAILY IV ; Start 06/06/17 at 09:00; Status Future Hold Vancomycin HCl/ Sodium Chloride (Vancocin/NS) 150 ml @ 75 mls/hr Q24H IVPB Last administered on 06/07/17 17:07; Admin Dose 75 MLS/HR; Start 06/06/17 at 16 :00 Warfarin Sodium (Coumadin) 3 mg DAILY@17 PO ; Start 06/07/17 at 17:00 RUSS CONNORS M.D. Jun 07, 2017 17:30 Vancomycin HCl/ Sodium Chloride (Vancocin/NS) 150 ml @ 75 mls/hr Q24H IVPB Last administered on 06/07/17t 17:07; Admin Dose 75 MLS/HR; Start 06/06/17 at 16 :00 Warfarin Sodium (Coumadin) 3 mg DAILY@17 PO ; Start 06/07/17 at 17:00 RUSS CONNORS M.D. Jun 07, 2017 17:30
--- NOTE | 2017-06-07 18:48 | PN ---
Date/Time of Note Date/Time of Note DATE: 06/07/17 TIME: 18:42 Assessment/Plan VTE Prophylaxis VTE Prophylaxis Intervention: LMWH Lines/Catheters IV [facility] Urinary Cath still in place: No Assessment/Plan Chief Complaint/Hosp Course Patient has perinephric fluid collection which is most likely a hematoma. Renal ultrasound showed mild left hydronephrosis. Her H&H are stable, Continue present treatment Problems: Assessment/Plan The Agarwal catheter was removed and the patient has been voiding in the diaper. She voided 4 times today and the urine is clear. The perinephric fluid collection is stable. her hemoglobin and hematocrit are stable and there is no evidence of acute bleeding Continue present treatment Subjective 24 Hr Interval Summary Constitutional: other (Patient denies any pain, she appears to be comfortable) Eyes: no complaints ENT: no complaints Respiratory: no complaints, No cough Cardiovascular: No chest pain Gastrointestinal: No nausea, No pain, No vomiting Genitourinary: other (Patient voiding in the diaper) Musculoskeletal: no complaints Skin: no complaints Neurologic: No focal-weakness, No seizure Endocrine: no complaints Lymphatic: no complaints Psychological: no complaints Exam/Review of Systems Vital Signs Vitals Vital Signs Date Time Temp Pulse Resp B/P Pulse Ox O2 Delivery O2 Flow Rate FiO2 06/07/17 16:35 93 06/07/17 16:19 98.0 19 115/60 98 06/07/17 15:27 Nasal Cannula 3.0 06/04/17 18:05 36 Intake and Output 06/06/17 06/06/17 06/07/17 15:00 23:00 07:00 Intake Total 950 ml 200 ml Output Total 400 ml Balance 950 ml -200 ml Exam Constitutional: alert, No distress Psych: no complaints Head: normocephalic Eyes: nl conjunctiva ENMT: nl external ears & nose Neck: supple Respiratory: normal air movement Cardiovascular: regular rate and rhythm Gastrointestinal: soft Genitourinary - Female: No CVA tenderness Results Result Diagram: 06/07/17 0715 06/06/17 0713 Results 24 hrs Laboratory Tests Test 06/07/17 07:15 Hemoglobin 11.7 L Hematocrit 35.0 L Prothrombin Time 35.6 H Prothrombin Time Ratio 2.8 INR International Normalized Ratio 3.49 Medications Medications Current Medications Lubiprostone (Amitiza) 24 mcg BID PO Last administered on 06/07/17 09:19; Admin Dose 24 MCG; Start 05/25/17 at 09:00 Nitroglycerin (Nitroglycerin (Sl Tab) 0.4 Mg) 0.4 tab PRN SL Last administered on 06/05/17 14:21; Admin Dose 0.4 TAB; Start 05/25/17 at 06:00 Pantoprazole (Protonix Tab) 40 mg DAILY@06 PO Last administered on 06/07/17 06 :16; Admin Dose 40 MG; Start 05/26/17 at 06:00 Acetaminophen (Tylenol Tab) 650 mg Q6H PRN PO PAIN AND OR ELEVATED TEMP Last administered on 06/06/17 19:36; Admin Dose 650 MG; Start 05/25/17 at 06:30 Magnesium Oxide (Mag-Ox 400) 400 mg DAILY PO Last administered on 06/07/17 09: 19; Admin Dose 400 MG; Start 05/26/17 at 09:00 Guaifenesin/ Dextromethorphan (Robitussin Dm Liquid Cup) 5 ml Q4H PRN PO COUGH Last administered on 05/28/17 18:39; Admin Dose 5 ML; Start 05/25/17 at 15:00 Metoprolol Tartrate (Lopressor) 5 mg Q4H PRN IV HR>110 SBP>180mmhg Last administered on 06/01/17 17:11; Admin Dose 5 MG; Start 05/25/17 at 15:30 Lactobacillus Acidophilus/ Rhamnosus (Culturelle) 1 cap DAILY PO Last administered on 06/07/17 09:19; Admin Dose 1 CAP; Start 05/27/17 at 09:00 Atenolol (Tenormin) 25 mg BID PO Last administered on 06/04/17 20:33; Admin Dose 25 MG; Start 05/26/17 at 21:00; Status Future hold Polyethylene Glycol (Miralax) 8.5 gm DAILY PO Last administered on 06/07/17 09 :19; Admin Dose 8.5 GM; Start 05/29/17 at 09:00 Hydromorphone HCl 0.5 mg 0.5 mg Q6H PRN IV PAIN Last administered on 06/02/17 21:32; Admin Dose 0.5 MG; Start 05/29/17 at 01:00 Fluconazole/ Sodium Chloride 50 ml @ 50 mls/hr Q24H IVPB Last administered on 13:07; Admin Dose 50 MLS/HR; Start 05/30/17 at 12:30 Meropenem/Sodium Chloride (Merrem 1 Gm/50 ml (Pmx)) 50 ml @ 200 mls/hr Q12H IVPB Last administered on 06/07/17 16:03; Admin Dose 200 MLS/HR; Start at 03:00 Diltiazem HCl (Cardizem) 30 mg Q8 PO Last administered on 06/07/17 13:07; Admin Dose 30 MG; Start 05/31/17 at 22:00; Status Future hold Bisacodyl (Dulcolax Supp) 10 mg Q48H PRN [place] CONSTIPATION Last administered on 21:23; Admin Dose 10 MG; Start 05/31/17 at 17:00 Ergocalciferol (Drisdol) 50,000 unit Q7D PO Last administered on 06/07/17 17: 06; Admin Dose 50,000 UNIT; Start 05/31/17 at 17:00 Multivitamins Therapeutic (Theragran) 1 tab DAILY PO Last administered on 09:19; Admin Dose 1 TAB; Start 06/02/17 at 09:00 Folic Acid (Folic Acid) 1 mg DAILY PO Last administered on 06/07/17 09:19; Admin Dose 1 MG; Start 06/02/17 at 09:00 Thiamine HCl (Vitamin B1) 100 mg DAILY PO Last administered on 06/07/17 09:19 ; Admin Dose 100 MG; Start 06/02/17 at 09:00 Potassium Chloride (Klor-Con 20) 20 meq DAILY PO Last administered on 09:20; Admin Dose 20 MEQ; Start 06/03/17 at 09:00 Furosemide 40 mg 40 mg DAILY IV ; Start 06/06/17 at 09:00; Status Future Hold Vancomycin HCl/ Sodium Chloride (Vancocin/NS) 150 ml @ 75 mls/hr Q24H IVPB Last administered on 06/07/17 17:07; Admin Dose 75 MLS/HR; Start 06/06/17 at 16 :00 Warfarin Sodium (Coumadin) 3 mg DAILY@17 PO ; Start 06/07/17 at 17:00 ANA WILKINSON MD Jun 07, 2017 18:48
--- NOTE | 2017-06-07 19:05 | RADRPT ---
PROCEDURE: XR Chest. CLINICAL INDICATION: Shortness of breath. TECHNIQUE: Single frontal view. COMPARISON: 06/04/2017. FINDINGS: There is mild right basilar atelectasis and moderate left basilar atelectasis or pneumonia, unchange d. The lungs are otherwise clear. The heart is enlarged. 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 Sternal wires and mi tral valve replacement are noted. There is calcification in the aorta consistent with atherosclerosi s. There is a small right pleural effusion and small left pleural effusion, unchanged. There is no pneumothorax. IMPRESSION: 1. No change from 06/04/2017. RPTAT: QQ .Isiah Lamar MD, MD Date Time Electronically viewed and signed by .Isiah Lamar MD, MD on 06/07/2017 19:04 .R/
[2017-06-07] MEDS ORDERED: APIXABAN 5 MG TABLET PO SCH (21:00)
[2017-06-07] MEDS: ACETAMINOPHEN 325 MG TAB PO PRN (22:10)
[2017-06-07] MEDS: GUAIFENESIN/DM 5ML CUP PO PRN (22:43)
[2017-06-08] VITALS (13 sets, daily range): BP systolic 100–133; BP diastolic 55–73; PULSE 75–86; RESP 18–20
[2017-06-08] MEDS: LEVALBUTEROL (NEB) 0.63 MG/3 ML AMP HHN SCH ×4 (02:00→20:00)
[2017-06-08] MEDS: MEROPENEM 1 GM/50ML(PMX) 50 ML IVPB SCH ×2 (02:41→14:44)
[2017-06-08] MEDS: HYDROmorphONE 1 MG/ML SYG IV PRN (02:42)
[2017-06-08] MEDS: NITROGLYCERIN (SL) 0.4 MG TAB SL SCH (02:55)
[2017-06-08] MEDS: PANTOPRAZOLE (EC) 40 MG TAB PO SCH (05:29)
[2017-06-08] MEDS: LEVOTHYROXINE 75 MCG TAB PO SCH (05:29)
[2017-06-08] MEDS: DILTIAZEM 30 MG TAB PO SCH ×3 (05:29→20:26)
[2017-06-08 07:07] LABS: ABNORMAL IP MESSAGE 1; HEMATOCRIT 30.9 % (37.0-47.0); HEMOGLOBIN 10.5 g/dl (12.0-16.0); MEAN CORPUSCULAR HEMOGLOBIN 30.1 pg (29.0-33.0); MEAN CORPUSCULAR VOLUME 88.5 fl (82.0-101.0); MEAN PLATELET VOLUME 12.9 fl (7.4-10.4); PLATELET COUNT 155 10^3/UL (140-415); RED BLOOD COUNT 3.49 10^6/ul (4.20-5.40); RED CELL DISTRIBUTION WIDTH 15.3 % (11.5-14.5); WHITE BLOOD COUNT 8.3 10^3/ul (4.8-10.8)
[2017-06-08 07:12] LABS: POSITIVE DIFF @See below
[2017-06-08 07:27] LABS: INR 3.14; PROTIME 32.7 Sec (12.2-14.2); PT RATIO 2.6
[2017-06-08] MEDS: LACTOBACILLUS RHAMNOSUS CAP PO SCH (09:43)
[2017-06-08] MEDS: MULTIVITAMINS THERAPEUTIC TAB PO SCH (09:43)
[2017-06-08] MEDS: POLYETHYLENE GLYCOL 17 GM PACKET PO SCH (09:43)
[2017-06-08] MEDS: LUBIPROSTONE 24 MCG CAP PO SCH ×2 (09:43→20:26)
[2017-06-08] MEDS: MAGNESIUM OXIDE 400 MG TAB PO SCH (09:44)
[2017-06-08] MEDS: THIAMINE 100 MG TAB PO SCH (09:44)
[2017-06-08] MEDS: POTASSIUM CHLORIDE (SR) 20 MEQ TAB PO SCH (09:44)
[2017-06-08] MEDS: ATENOLOL 25 MG TAB PO SCH ×2 (09:44→20:16)
[2017-06-08] MEDS: FOLIC ACID 1 MG TAB PO SCH (09:44)
--- NOTE | 2017-06-08 11:52 | PN ---
Date/Time of Note Date/Time of Note DATE: 06/08/17 TIME: 11:51 Assessment/Plan VTE Prophylaxis VTE Prophylaxis Intervention: LMWH Lines/Catheters IV Catheter Type (from [facility]): [facility] Urinary Cath still in place: No Assessment/Plan Chief Complaint/Hosp Course 1. SEPSIS resolving 2. AFIB, controlled 3. HTN, controlled 4. ASHD 5. hyponatremia 6. recurrent UTI 7. LOW EF 8. low platelets 9. Anemia 10. urinary incontinence 11. Constipation 12. Vit d deficiency 13. Muscle weakness Problems: Assessment/Plan 1.Continue rehabilitation in [facility], spoke to daughter Bobby, she agrees Subjective 24 Hr Interval Summary Constitutional: improved, no complaints Exam/Review of Systems Vital Signs Vitals Vital Signs Date Time Temp Pulse Resp B/P Pulse Ox O2 Delivery O2 Flow Rate FiO2 06/08/17 11:29 97.5 75 18 105/55 98 06/08/17 08:45 Nasal Cannula 2.0 06/08/17 02:25 27 Intake and Output 06/07/17 06/07/17 06/08/17 15:00 23:00 07:00 Intake Total 800 ml 250 ml Balance 800 ml 250 ml Exam Constitutional: alert, oriented Eyes: EOMI, nl conjunctiva ENMT: nl external ears & nose Genitourinary - Female: CVA tenderness, No CMT, No nl adnexae, No nl external genitalia, No other, No uterus Musculoskeletal: muscle weakness Results Result Diagram: 06/08/17 0615 06/06/17 0713 Results 24 hrs Laboratory Tests Test 06/08/17 06:15 White Blood Count 8.3 # Red Blood Count 3.49 L Hemoglobin 10.5 L Hematocrit 30.9 L Mean Corpuscular Volume 88.5 Mean Corpuscular Hemoglobin 30.1 Mean Corpuscular Hemoglobin Concent 34.0 Red Cell Distribution Width 15.3 H Platelet Count 155 Mean Platelet Volume 12.9 H Neutrophils % Lymphocytes % Monocytes % Eosinophils % Basophils % Nucleated Red Blood Cells % 0.0 Neutrophils # Lymphocytes # Monocytes # Eosinophils # Basophils # Nucleated Red Blood Cells # Prothrombin Time 32.7 H Prothrombin Time Ratio 2.6 INR International Normalized Ratio 3.14 Medications Medications Current Medications Lubiprostone (Amitiza) 24 mcg BID PO Last administered on 06/08/17t 09:43; Admin Dose 24 MCG; Start 05/25/17 at 09:00 Nitroglycerin (Nitroglycerin (Sl Tab) 0.4 Mg) 0.4 tab PRN SL Last administered on 06/08/17 02:55; Admin Dose 0.4 TAB; Start 05/25/17 at 06:00 Pantoprazole (Protonix Tab) 40 mg DAILY@06 PO Last administered on 06/08/17 05 :29; Admin Dose 40 MG; Start 05/26/17 at 06:00 Acetaminophen (Tylenol Tab) 650 mg Q6H PRN PO PAIN AND OR ELEVATED TEMP Last administered on 06/07/17 22:10; Admin Dose 650 MG; Start 05/25/17 at 06:30 Magnesium Oxide (Mag-Ox 400) 400 mg DAILY PO Last administered on 06/08/17 09: 44; Admin Dose 400 MG; Start 05/26/17 at 09:00 Guaifenesin/ Dextromethorphan (Robitussin Dm Liquid Cup) 5 ml Q4H PRN PO COUGH Last administered on 06/07/17 22:43; Admin Dose 5 ML; Start 05/25/17 at 15:00 Metoprolol Tartrate (Lopressor) 5 mg Q4H PRN IV HR>110 SBP>180mmhg Last administered on 06/01/17 17:11; Admin Dose 5 MG; Start 05/25/17 at 15:30 Lactobacillus Acidophilus/ Rhamnosus (Culturelle) 1 cap DAILY PO Last administered on 06/08/17 09:43; Admin Dose 1 CAP; Start 05/27/17 at 09:00 Atenolol (Tenormin) 25 mg BID PO Last administered on 06/08/17 09:44; Admin Dose 25 MG; Start 05/26/17 at 21:00; Status Future hold Polyethylene Glycol (Miralax) 8.5 gm DAILY PO Last administered on 06/08/17 09 :43; Admin Dose 8.5 GM; Start 05/29/17 at 09:00 Hydromorphone HCl 0.5 mg 0.5 mg Q6H PRN IV PAIN Last administered on 06/08/17 02:42; Admin Dose 0.5 MG; Start 05/29/17 at 01:00 Fluconazole/ Sodium Chloride 50 ml @ 50 mls/hr Q24H IVPB Last administered on 13:07; Admin Dose 50 MLS/HR; Start 05/30/17 at 12:30 Meropenem/Sodium Chloride (Merrem 1 Gm/50 ml (Pmx)) 50 ml @ 200 mls/hr Q12H IVPB Last administered on 06/08/17 02:41; Admin Dose 200 MLS/HR; Start at 03:00 Diltiazem HCl (Cardizem) 30 mg Q8 PO Last administered on 06/08/17 05:29; Admin Dose 30 MG; Start 05/31/17 at 22:00; Status Future hold Bisacodyl (Dulcolax Supp) 10 mg Q48H PRN [place] CONSTIPATION Last administered on 21:23; Admin Dose 10 MG; Start 05/31/17 at 17:00 Ergocalciferol (Drisdol) 50,000 unit Q7D PO Last administered on 06/07/17 17: 06; Admin Dose 50,000 UNIT; Start 05/31/17 at 17:00 Multivitamins Therapeutic (Theragran) 1 tab DAILY PO Last administered on 09:43; Admin Dose 1 TAB; Start 06/02/17 at 09:00 Folic Acid (Folic Acid) 1 mg DAILY PO Last administered on 06/08/17 09:44; Admin Dose 1 MG; Start 06/02/17 at 09:00 Thiamine HCl (Vitamin B1) 100 mg DAILY PO Last administered on 06/08/17 09:44 ; Admin Dose 100 MG; Start 06/02/17 at 09:00 Potassium Chloride (Klor-Con 20) 20 meq DAILY PO Last administered on 09:44; Admin Dose 20 MEQ; Start 06/03/17 at 09:00 Furosemide 40 mg 40 mg DAILY IV ; Start 06/06/17 at 09:00; Status Future Hold Vancomycin HCl/ Sodium Chloride (Vancocin/NS) 150 ml @ 75 mls/hr Q24H IVPB Last administered on 06/07/17 17:07; Admin Dose 75 MLS/HR; Start 06/06/17 at 16 :00 Warfarin Sodium (Coumadin) 3 mg DAILY@17 PO ; Start 06/07/17 at 17:00 RENAY TRAN Jun 08, 2017 11:52
--- NOTE | 2017-06-08 11:53 | PDOCDIS ---
Discharge Instructions CONDITION Patient Condition: Good HOME CARE INSTRUCTIONS: Diet Instructions: Low Fat /CholesterolSpecial Diet: 2 gm Na ACTIVITY: Activity Restrictions: Slowly Increase Activity RENAY TRAN Jun 08, 2017 11:53
[2017-06-08] MEDS ORDERED: LUBI24CA7 PO (12:00)
[2017-06-08] MEDS ORDERED: POLY17PO6 PO (12:00)
[2017-06-08] MEDS ORDERED: MAGN400T28 PO (12:00)
[2017-06-08] MEDS ORDERED: PANT40TA4 PO (12:00)
[2017-06-08] MEDS ORDERED: ACET325T40 PO (12:00)
[2017-06-08] MEDS ORDERED: DILT30TA30 PO (12:00)
[2017-06-08] MEDS ORDERED: FOLI-49 PO (12:00)
[2017-06-08] MEDS ORDERED: ERGO500037 PO (12:00)
[2017-06-08] MEDS ORDERED: MULTI PO (12:00)
[2017-06-08] MEDS ORDERED: BISA10SU75 PR (12:00)
[2017-06-08] MEDS ORDERED: ATEN-51 PO (12:00)
[2017-06-08] MEDS ORDERED: LACT1CAP57 PO (12:00)
[2017-06-08] MEDS ORDERED: FLUC150T41 PO (12:04)
[2017-06-08] MEDS ORDERED: COU25 PO (12:08)
[2017-06-08] MEDS: FLUCONAZOLE 100 MG/NS (PMX) 50 ML IVPB SCH (12:13)
[2017-06-08] MEDS: GUAIFENESIN/DM 5ML CUP PO PRN (14:53)
--- NOTE | 2017-06-08 15:14 | CONS ---
Date/Time of Note Date/Time of Note DATE: 06/08/17 TIME: 15:13 Assessment/Plan Assessment/Plan Additional Assessment/Plan Atrial fibrillation s/p PPM TIA UTI L IJ thrombosis CHF-systolic acute on chronic LVEF 40% Pleural effusion s/p L thoracentesis Continue Atenolol Keep Mag > 2 and Potassium > 4 Continue Antibiotics Continue Coumadin Consultation Date/Type/Reason Admit Date/Time May 25, 2017 at 00:06 Constitutional: improved, no complaints Eyes: no complaints ENT: no complaints Respiratory: no complaints, No cough Cardiovascular: No chest pain Gastrointestinal: No nausea, No pain, No vomiting Genitourinary: other (Patient voiding in the diaper) Musculoskeletal: no complaints Skin: no complaints Neurologic: No focal-weakness, No seizure Endocrine: no complaints Lymphatic: no complaints Psychological: no complaints Immunologic: no complaints Past Medical History Medical History: other (Atrial fibrillation, pacemaker and mitral valve replacement) Past Surgical History Past Surgical Hx: cholecystectomy, other (Pacemaker, mitral valve replacement, splenectomy) Social History Alcohol Use: none Smoking Status: Never smoker Drug Use: none Exam/Review of Systems Vital Signs Vitals Vital Signs Date Time Temp Pulse Resp B/P Pulse Ox O2 Delivery O2 Flow Rate FiO2 06/08/17 13:20 75 18 98 Nasal Cannula 2.0 06/08/17 11:29 97.5 105/55 06/08/17 02:25 27 Intake and Output 06/07/17 06/07/17 06/08/17 15:00 23:00 07:00 Intake Total 800 ml 250 ml Balance 800 ml 250 ml Results Result Diagram: 06/08/17 0615 06/06/17 0713 Results 24 hrs Laboratory Tests Test 06/08/17 06:15 White Blood Count 8.3 # Red Blood Count 3.49 L Hemoglobin 10.5 L Hematocrit 30.9 L Mean Corpuscular Volume 88.5 Mean Corpuscular Hemoglobin 30.1 Mean Corpuscular Hemoglobin Concent 34.0 Red Cell Distribution Width 15.3 H Platelet Count 155 Mean Platelet Volume 12.9 H Neutrophils % Lymphocytes % Monocytes % Eosinophils % Basophils % Nucleated Red Blood Cells % 0.0 Neutrophils # Lymphocytes # Monocytes # Eosinophils # Basophils # Nucleated Red Blood Cells # Prothrombin Time 32.7 H Prothrombin Time Ratio 2.6 INR International Normalized Ratio 3.14 Medications Medications Current Medications Lubiprostone (Amitiza) 24 mcg BID PO Last administered on 06/08/17 09:43; Admin Dose 24 MCG; Start 05/25/17 at 09:00 Nitroglycerin (Nitroglycerin (Sl Tab) 0.4 Mg) 0.4 tab PRN SL Last administered on 06/08/17 02:55; Admin Dose 0.4 TAB; Start 05/25/17 at 06:00 Pantoprazole (Protonix Tab) 40 mg DAILY@06 PO Last administered on 06/08/17 05 :29; Admin Dose 40 MG; Start 05/26/17 at 06:00 Acetaminophen (Tylenol Tab) 650 mg Q6H PRN PO PAIN AND OR ELEVATED TEMP Last administered on 06/07/17 22:10; Admin Dose 650 MG; Start 05/25/17 at 06:30 Magnesium Oxide (Mag-Ox 400) 400 mg DAILY PO Last administered on 06/08/17 09: 44; Admin Dose 400 MG; Start 05/26/17 at 09:00 Guaifenesin/ Dextromethorphan (Robitussin Dm Liquid Cup) 5 ml Q4H PRN PO COUGH Last administered on 06/08/17 14:53; Admin Dose 5 ML; Start 05/25/17 at 15:00 Metoprolol Tartrate (Lopressor) 5 mg Q4H PRN IV HR>110 SBP>180mmhg Last administered on 06/01/17 17:11; Admin Dose 5 MG; Start 05/25/17 at 15:30 Lactobacillus Acidophilus/ Rhamnosus (Culturelle) 1 cap DAILY PO Last administered on 06/08/17 09:43; Admin Dose 1 CAP; Start 05/27/17 at 09:00 Atenolol (Tenormin) 25 mg BID PO Last administered on 06/08/17 09:44; Admin Dose 25 MG; Start 05/26/17 at 21:00; Status Future hold Polyethylene Glycol (Miralax) 8.5 gm DAILY PO Last administered on 06/08/17 09 :43; Admin Dose 8.5 GM; Start 05/29/17 at 09:00 Hydromorphone HCl 0.5 mg 0.5 mg Q6H PRN IV PAIN Last administered on 06/08/17 02:42; Admin Dose 0.5 MG; Start 05/29/17 at 01:00 Fluconazole/ Sodium Chloride 50 ml @ 50 mls/hr Q24H IVPB Last administered on 12:13; Admin Dose 50 MLS/HR; Start 05/30/17 at 12:30 Meropenem/Sodium Chloride (Merrem 1 Gm/50 ml (Pmx)) 50 ml @ 200 mls/hr Q12H IVPB Last administered on 06/08/17 14:44; Admin Dose 200 MLS/HR; Start at 03:00 Diltiazem HCl (Cardizem) 30 mg Q8 PO Last administered on 06/08/17 13:33; Admin Dose 30 MG; Start 05/31/17 at 22:00; Status Future hold Bisacodyl (Dulcolax Supp) 10 mg Q48H PRN [place] CONSTIPATION Last administered on 21:23; Admin Dose 10 MG; Start 05/31/17 at 17:00 Ergocalciferol (Drisdol) 50,000 unit Q7D PO Last administered on 06/07/17 17: 06; Admin Dose 50,000 UNIT; Start 05/31/17 at 17:00 Multivitamins Therapeutic (Theragran) 1 tab DAILY PO Last administered on 09:43; Admin Dose 1 TAB; Start 06/02/17 at 09:00 Folic Acid (Folic Acid) 1 mg DAILY PO Last administered on 06/08/17 09:44; Admin Dose 1 MG; Start 06/02/17 at 09:00 Thiamine HCl (Vitamin B1) 100 mg DAILY PO Last administered on 06/08/17 09:44 ; Admin Dose 100 MG; Start 06/02/17 at 09:00 Potassium Chloride (Klor-Con 20) 20 meq DAILY PO Last administered on 09:44; Admin Dose 20 MEQ; Start 06/03/17 at 09:00 Furosemide 40 mg 40 mg DAILY IV ; Start 06/06/17 at 09:00; Status Future Hold Vancomycin HCl/ Sodium Chloride (Vancocin/NS) 150 ml @ 75 mls/hr Q24H IVPB Last administered on 06/07/17 17:07; Admin Dose 75 MLS/HR; Start 06/06/17 at 16 :00 Warfarin Sodium (Coumadin) 3 mg DAILY@17 PO ; Start 06/07/17 at 17:00 RUSS CONNORS M.D. Jun 08, 2017 15:14
[2017-06-08] MEDS: VANCOMYCIN 750 MG in SOD CHLORIDE 0.9% 150 ML IVPB SCH (15:20)
--- NOTE | 2017-06-08 15:40 | CONS ---
Date/Time of Note Date/Time of Note DATE: 06/08/17 TIME: 15:39 Assessment/Plan Assessment/Plan Chief Complaint/Hosp Course Alert, feels better lying comfortably in bed Temperature 97.5 pulse 75 respirations 18 blood pressure 105/55 saturation 98 on 2 L Chest x-ray ordered yesterday revealed mild right basilar atelectasis and moderate left basilar atelectasis or pneumonia, unchanged WBC 8.3 H&H 10.5 and 30.5 platelets 155 BN 29 creatinine 0.77 Microbiology: Pleural fluid cultures remain negative Antibiotics: Vancomycin, meropenem, fluconazole Physical examination: Well-developed, fragile Malaysian-speaking elderly woman who is alert in no distress. Head atraumatic normocephalic, sclera nonicteric. Neck is supple. Chest rise symmetrical breath sounds diminished basis, scattered crackles more on the left. Heart: S1, S2. Abdomen soft, bowel tones present. Patient is having left-sided pain on palpation as well as lower back pain. Extremities without cyanosis. Left upper extremity with trace edema. Assessment: 1. Sepsis was resolving leukocytosis 2. Left kidney hematoma versus abscess 3. Exudative left pleural effusion, possible underlying pneumonia, s/p thoracentesis 4. Bacteremia with blood culture on admission grew Bacillus species consistent with contaminant 4. Nina albicans UTI 5. Coronary artery disease with a history of mitral valve mechanical prosthesis and ejection fraction of 40% 6. History of permanent pacemaker 7. Allergy: Penicillin Plan: Remains stable, leukocytosis resolved, continue present care, antibiotics , follow pulmonary and urology recommendations Discussed with patient/ staff Problems: Consultation Date/Type/Reason Admit Date/Time May 25, 2017 at 00:06 Initial Consult Date 05/25/17 Type of Consultation: ID Referring Provider: DUANE NGUYỄN MD Exam/Review of Systems Vital Signs Vitals Vital Signs Date Time Temp Pulse Resp B/P Pulse Ox O2 Delivery O2 Flow Rate FiO2 06/08/17 15:37 98.1 79 18 132/69 98 06/08/17 13:20 Nasal Cannula 2.0 06/08/17 02:25 27 Intake and Output 06/07/17 06/07/17 06/08/17 15:00 23:00 07:00 Intake Total 800 ml 250 ml Balance 800 ml 250 ml Results Result Diagram: 06/08/17 0615 06/06/17 0713 Results 24 hrs Laboratory Tests Test 06/08/17 06:15 White Blood Count 8.3 # Red Blood Count 3.49 L Hemoglobin 10.5 L Hematocrit 30.9 L Mean Corpuscular Volume 88.5 Mean Corpuscular Hemoglobin 30.1 Mean Corpuscular Hemoglobin Concent 34.0 Red Cell Distribution Width 15.3 H Platelet Count 155 Mean Platelet Volume 12.9 H Neutrophils % Lymphocytes % Monocytes % Eosinophils % Basophils % Nucleated Red Blood Cells % 0.0 Neutrophils # Lymphocytes # Monocytes # Eosinophils # Basophils # Nucleated Red Blood Cells # Prothrombin Time 32.7 H Prothrombin Time Ratio 2.6 INR International Normalized Ratio 3.14 Medications Medications Current Medications Lubiprostone (Amitiza) 24 mcg BID PO Last administered on 06/08/17 09:43; Admin Dose 24 MCG; Start 05/25/17 at 09:00 Nitroglycerin (Nitroglycerin (Sl Tab) 0.4 Mg) 0.4 tab PRN SL Last administered on 06/08/17 02:55; Admin Dose 0.4 TAB; Start 05/25/17 at 06:00 Pantoprazole (Protonix Tab) 40 mg DAILY@06 PO Last administered on 06/08/17 05 :29; Admin Dose 40 MG; Start 05/26/17 at 06:00 Acetaminophen (Tylenol Tab) 650 mg Q6H PRN PO PAIN AND OR ELEVATED TEMP Last administered on 06/07/17 22:10; Admin Dose 650 MG; Start 05/25/17 at 06:30 Magnesium Oxide (Mag-Ox 400) 400 mg DAILY PO Last administered on 06/08/17 09: 44; Admin Dose 400 MG; Start 05/26/17 at 09:00 Guaifenesin/ Dextromethorphan (Robitussin Dm Liquid Cup) 5 ml Q4H PRN PO COUGH Last administered on 06/08/17 14:53; Admin Dose 5 ML; Start 05/25/17 at 15:00 Metoprolol Tartrate (Lopressor) 5 mg Q4H PRN IV HR>110 SBP>180mmhg Last administered on 06/01/17 17:11; Admin Dose 5 MG; Start 05/25/17 at 15:30 Lactobacillus Acidophilus/ Rhamnosus (Culturelle) 1 cap DAILY PO Last administered on 06/08/17 09:43; Admin Dose 1 CAP; Start 05/27/17 at 09:00 Atenolol (Tenormin) 25 mg BID PO Last administered on 06/08/17 09:44; Admin Dose 25 MG; Start 05/26/17 at 21:00; Status Future hold Polyethylene Glycol (Miralax) 8.5 gm DAILY PO Last administered on 06/08/17 09 :43; Admin Dose 8.5 GM; Start 05/29/17 at 09:00 Hydromorphone HCl 0.5 mg 0.5 mg Q6H PRN IV PAIN Last administered on 06/08/17 02:42; Admin Dose 0.5 MG; Start 05/29/17 at 01:00 Fluconazole/ Sodium Chloride 50 ml @ 50 mls/hr Q24H IVPB Last administered on 12:13; Admin Dose 50 MLS/HR; Start 05/30/17 at 12:30 Meropenem/Sodium Chloride (Merrem 1 Gm/50 ml (Pmx)) 50 ml @ 200 mls/hr Q12H IVPB Last administered on 06/08/17 14:44; Admin Dose 200 MLS/HR; Start at 03:00 Diltiazem HCl (Cardizem) 30 mg Q8 PO Last administered on 06/08/17 13:33; Admin Dose 30 MG; Start 05/31/17 at 22:00; Status Future hold Bisacodyl (Dulcolax Supp) 10 mg Q48H PRN [place] Last administered on 21:23; Admin Dose 10 MG; Start 05/31/17 at 17:00 Ergocalciferol (Drisdol) 50,000 unit Q7D PO Last administered on 06/07/17 17: 06; Admin Dose 50,000 UNIT; Start 05/31/17 at 17:00 Multivitamins Therapeutic (Theragran) 1 tab DAILY PO Last administered on 09:43; Admin Dose 1 TAB; Start 06/02/17 at 09:00 Folic Acid (Folic Acid) 1 mg DAILY PO Last administered on 06/08/17 09:44; Admin Dose 1 MG; Start 06/02/17 at 09:00 Thiamine HCl (Vitamin B1) 100 mg DAILY PO Last administered on 06/08/17 09:44 ; Admin Dose 100 MG; Start 06/02/17 at 09:00 Potassium Chloride (Klor-Con 20) 20 meq DAILY PO Last administered on 09:44; Admin Dose 20 MEQ; Start 06/03/17 at 09:00 Furosemide 40 mg 40 mg DAILY IV ; Start 06/06/17 at 09:00; Status Future Hold Vancomycin HCl/ Sodium Chloride (Vancocin/NS) 150 ml @ 75 mls/hr Q24H IVPB Last administered on 06/08/17 15:20; Admin Dose 75 MLS/HR; Start 06/06/17 at 16 :00 Warfarin Sodium (Coumadin) 3 mg DAILY@17 PO ; Start 06/07/17 at 17:00 BALDOMERO STARKS NP Jun 08, 2017 15:40
[2017-06-08] MEDS: ACETAMINOPHEN 325 MG TAB PO PRN (19:51)
--- NOTE | 2017-06-11 11:52 | CONS ---
DATE OF ADMISSION: 05/25/2017 DATE OF CONSULTATION: 05/28/2017 REASON FOR CONSULTATION: Antibiotic management. HISTORY OF PRESENT ILLNESS: Jamee Stevenson is a 76-year-old female who was admitted on 05/24 as noted in transfer from [facility], complaining of weakness. She had stroke- like symptoms with some slurring of speech as well as blurred vision. She an artificial mitral valve, for which she receives Coumadin. She had laboratories at the facility and her INR was elevated at 3.2. She had some foul-smelling urine as well. She was treated for ITP with immunosuppressants, that ended yesterday. PAST MEDICAL HISTORY: As outlined. She has a history of hypertension. PAST SURGICAL HISTORY: Open heart with valve replacement. She had surgery on her spleen and also gallbladder. FAMILY HISTORY: Noncontributory. SOCIAL HISTORY: As noted, she does not smoke, drink, or abuse drugs. ALLERGIES: PENICILLIN. MILD ALLERGY TO ASPIRIN. MILD ALLERGY TO HEPARIN. MEDICATIONS: Per chart. REVIEW OF SYSTEMS: As per HPI. PHYSICAL EXAMINATION: GENERAL: The patient is a well-developed, well-nourished female. Alert, responsive, in no acute distress. VITAL SIGNS: Stable. She is afebrile. SKIN: Without generalized rash. HEENT: Within normal limits. NECK: Supple. Lymph nodes not palpable. CARDIAC: Irregularly irregular rhythm. ABDOMEN: Soft, nontender. Without organomegaly, splenomegaly, or masses. EXTREMITIES: Without cyanosis, clubbing, or edema. GENITORECTAL: Deferred. NEUROLOGIC: No focal neurological abnormality. LABORATORY: On admission, her white count was 36.8, hemoglobin and hematocrit of 13.2 and 8.3, platelet count 264,000. BUN and creatinine are 20/0.66. Microbiology: She just grew out bacillus species which is probably a contaminant, and the other blood culture was negative. She has been on prednisone. She did receive vancomycin. Her white count is 51.7 and has been elevated from admission. BUN and creatinine are 33/0.75. Urine is positive for leukocyte esterase, 130 white cells per high- powered field. HOSPITAL COURSE: The patient has had ongoing problems related to leukocytosis with sepsis. It is unclear what the source of sepsis is at this point; it could very well be her urine, most likely with a leukocyte esterase of 3+ and WBCs of 130, and she is really only on Levaquin for this, and I do not see a urine culture, but no urine cultures were done. We are going to repeat blood cultures, do urine culture, place her on ertapenem. IMPRESSION AND PLAN: The patient has a climbing white count, the etiology of which is unclear. There is no evidence for Clostridium difficile as far as I can tell. We are going to do blood cultures, a urine culture, and start her on ertapenem, discontinue the Levaquin. Dictated By: Pierre Crews MD JD/bj/seun /Document#: [id number]
== END 2017-06-08 20:46 | DRG 871 ==
LOC: E/R 22:03 → TEL 05-25 00:06
PROVIDERS: ADMIT Internal Medicine Nephrology; ATTEND Internal Medicine Nephrology
PROC: 0W9B3ZZ Drainage of Left Pleural Cavity, Percutaneous Approach (ICD-10-PCS; principal; 2017-06-04)
DX: A41.9 Sepsis, unspecified organism (principal); I50.23 Acute on chronic systolic (congestive) heart failure; I63.9 Cerebral infarction, unspecified; G93.41 Metabolic encephalopathy; K66.1 Hemoperitoneum; J90 Pleural effusion, not elsewhere classified; N15.1 Renal and perinephric abscess; J18.9 Pneumonia, unspecified organism; N39.0 Urinary tract infection, site not specified; I82.C12 Acute embolism and thrombosis of left internal jugular vein; E87.3 Alkalosis; E87.1 Hypo-osmolality and hyponatremia; G45.9 Transient cerebral ischemic attack, unspecified; N12 Tubulo-interstitial nephritis, not specified as acute or chronic; K86.1 Other chronic pancreatitis; B37.49 Other urogenital candidiasis; I48.91 Unspecified atrial fibrillation; I10 Essential (primary) hypertension; Z95.2 Presence of prosthetic heart valve; Z79.01 Long term (current) use of anticoagulants; Z95.0 Presence of cardiac pacemaker; I25.10 Atherosclerotic heart disease of native coronary artery without angina pectoris; I25.5 Ischemic cardiomyopathy; D64.9 Anemia, unspecified; R32 Unspecified urinary incontinence; K59.00 Constipation, unspecified; R10.9 Unspecified abdominal pain; T45.515A Adverse effect of anticoagulants, initial encounter; Y92.9 Unspecified place or not applicable; E55.9 Vitamin D deficiency, unspecified; R29.704 NIHSS score 4; I95.9 Hypotension, unspecified
CPT/HCPCS: 32555; 36415; 36600; 70450; 71010; 71260; 74000; 74177; 76775; 80048; 80053; 80061; 80202; 80307; 81001; 82652; 82803; 82945; 82962; 83036; 83605; 83880; 84157; 84443; 84484; 85014; 85018; 85025; 85610; 85730; 86022; 87040; 87070; 87086; 87102; 87116; 88104; 88305; 89051; 92610; 93005; 93306; 93880; 93971; 94640; 94664; 96374; 96375; 96376; 97003; 97110; 97162; 97165; 97530; J1940; J1170; J1335; J1450; J1652; J1885; J1956; J2185; J2405; J2920; J3260; J3370; J3411; J3480; J7030; J7040; J7050; J7512; Q9967

== ENCOUNTER 2017-06-08 16:39 | Inpatient (IN) | payer MEDICARE, OTHER ==
[~2017-06-08] VITALS: Ht 175.3 cm; Wt 55.9 kg
[~2017-06-08 16:39] MED LIST changes: +ACET325T40 PO; +ATEN-51 PO; +BISA10SU75 PR; +COU25 PO; +DILT30TA30 PO; +ERGO500037 PO; +FLUC150T41 PO; +FOLI-49 PO; +LACT1CAP57 PO; +MAGN400T28 PO; +MULTI PO; +PANT40TA4 PO; +POLY17PO6 PO
[2017-06-08 21:00] VITALS: BP 106/55; RESP 20
[2017-06-08 21:45] VITALS: BP 106/55; PULSE 75
[2017-06-08] MEDS ORDERED: NITROGLYCERIN (SL) 0.4 MG TAB SL SCH (22:49)
[2017-06-08] MEDS ORDERED: ERGOCALCIFEROL 50,000 UNIT CAP PO SCH (22:49)
[2017-06-08] MEDS ORDERED: BISACODYL 10 MG SUPP PR PRN (22:49)
[2017-06-08] MEDS ORDERED: WARFARIN 3 MG TAB PO SCH (22:49)
[2017-06-08 22:56] VITALS: Ht 175.3 cm; Wt 55.9 kg
[2017-06-09] MEDS: MEROPENEM 1 GM/50ML(PMX) 50 ML IVPB SCH ×3 (00:22→22:30)
[2017-06-09 02:00] VITALS: BP 102/53; RESP 18
[2017-06-09] MEDS: LEVALBUTEROL (NEB) 0.63 MG/3 ML AMP HHN SCH ×4 (02:00→20:32)
[2017-06-09 03:55] LABS: ADD UMIC NO; UR ASCORBIC ACID NEGATIVE (NEGATIVE); UR BACTERIA FEW /HPF (NONE SEEN); UR BILIRUBIN (Dip) NEGATIVE (NEGATIVE); UR BLOOD (Dip) NEGATIVE (NEGATIVE); UR CLARITY SLIGHTLY CLOUDY (CLEAR); UR COLOR YELLOW (YELLOW); UR GLUCOSE (Dip) NEGATIVE (NEGATIVE); UR KETONES (Dip) TRACE mg/dL (NEGATIVE); UR LEUKOCYTE ESTERASE (Dip) NEGATIVE Leu/ul (NEGATIVE); UR NITRITE (Dip) NEGATIVE (NEGATIVE); UR NONSQUAMOUS EPITHELIAL CELL 1 /HPF (NONE SEEN); UR RBC 1 /HPF (0-5); UR SPECIFIC GRAVITY (Dip) 1.019 (1.003-1.030); UR SQUAMOUS EPITHELIAL CELL FEW /HPF (FEW); UR TOTAL PROTEIN (Dip) NEGATIVE (NEGATIVE); UR UROBILINOGEN (Dip) 1+ mg/dL (NEGATIVE)
[2017-06-09] MEDS: PANTOPRAZOLE (EC) 40 MG TAB PO SCH (06:37)
[2017-06-09] MEDS: LEVOTHYROXINE 75 MCG TAB PO SCH (06:38)
[2017-06-09] MEDS: DILTIAZEM 30 MG TAB PO SCH ×3 (06:40→21:30)
[2017-06-09 07:20] LABS: ABNORMAL IP MESSAGE 1; BASOPHIL # 0.1 10^3/ul (0.0-0.1); BASOPHILS % 0.6 % (0.0-2.0); EOSINOPHILS # 0.2 10^3/ul (0.0-0.5); EOSINOPHILS % 1.6 % (0.0-7.0); HEMATOCRIT 31.4 % (37.0-47.0); HEMOGLOBIN 10.5 g/dl (12.0-16.0); LYMPHOCYTES # 0.8 10^3/ul (0.8-2.9); LYMPHOCYTES % 8.5 % (15.0-51.0); MEAN CORPUSCULAR HEMOGLOBIN 29.6 pg (29.0-33.0); MEAN CORPUSCULAR HGB CONC 33.4 g/dl (32.0-37.0); MEAN CORPUSCULAR VOLUME 88.5 fl (82.0-101.0); MONOCYTE # 0.6 10^3/ul (0.3-0.9); MONOCYTES % 5.8 % (0.0-11.0); NEUTROPHIL # 7.4 10^3/ul (1.6-7.5); NEUTROPHILS % 76.1 % (39.0-77.0); PLATELET COUNT 174 10^3/UL (140-415); RED BLOOD COUNT 3.55 10^6/ul (4.20-5.40); RED CELL DISTRIBUTION WIDTH 15.5 % (11.5-14.5); WHITE BLOOD COUNT 9.8 10^3/ul (4.8-10.8)
[2017-06-09 07:22] LABS: INR 3.37; PROTIME 34.6 Sec (12.2-14.2); PT RATIO 2.7
[2017-06-09 07:32] LABS: POSITIVE DIFF @See below
[2017-06-09 07:36] LABS: ALBUMIN 1.9 g/dl (3.3-4.9); ALBUMIN/GLOBULIN RATIO 0.61; BILIRUBIN,INDIRECT 0.3 mg/dl (0-1.1); BILIRUBIN,TOTAL 0.3 mg/dl (0.2-1.3); CALCIUM 7.4 mg/dl (8.4-10.2); CREATININE 0.78 mg/dl (0.44-1.00); POTASSIUM 4.7 mmol/L (3.5-5.1)
[2017-06-09 07:46] VITALS: BP 111/55; RESP 18
[2017-06-09] MEDS: MAGNESIUM OXIDE 400 MG TAB PO SCH (08:41)
[2017-06-09] MEDS: LUBIPROSTONE 24 MCG CAP PO SCH ×2 (08:41→21:30)
[2017-06-09] MEDS: MULTIVITAMINS THERAPEUTIC TAB PO SCH (08:41)
[2017-06-09] MEDS: LACTOBACILLUS RHAMNOSUS CAP PO SCH (08:46)
[2017-06-09] MEDS: FOLIC ACID 1 MG TAB PO SCH (08:46)
[2017-06-09] MEDS: POLYETHYLENE GLYCOL 17 GM PACKET PO SCH (08:47)
[2017-06-09] MEDS: ATENOLOL 25 MG TAB PO SCH ×2 (09:00→21:30)
[2017-06-09] MEDS: FUROSEMIDE 40 MG INJ IV SCH (09:00)
[2017-06-09] MEDS: FLUCONAZOLE 150 MG TAB PO SCH (10:16)
--- NOTE | 2017-06-09 13:41 | CONS ---
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 Dysphagia 2. afib, pacemaker 3. Pleural effusion-s.p thoracentesis 4. s.p. sepsis 5. Left kidney hematoma 6. CAD 7. stage 2 decub on sacrum 8. Impairments in self-care, mobility and cognition. PLAN: The patient has been admitted for comprehensive interdisciplinary acute rehab and is anticipated to tolerate 3 hours of daily therapy in divided doses for at least 5/7 days a week. The treatment plan will include: 1. Physical therapy to focus on bed mobility, transfers, and household ambulation with the goal of having the patient reach a standby assist for ambulation. 2. Occupational therapy to focus on hygiene, grooming, dressing, bathing, and toileting activities with the goal of having the patient reach a standby assist level. 3. Speech therapy for full cognitive assessment and retraining in addition to dysphagia management with the goal of having the patient return to baseline cognition and meet nutritional needs by mouth. 4. Rehabilitation nursing for carryover of therapeutic interventions, the goal of continent of bowel and bladder, skin integrity improved and patient and family education with regards to the aforementioned issues. ESTIMATED LENGTH OF STAY: 14 days. DISPOSITION GOAL: Home. Rehabilitation Barrier: dysphagia Intervention for barrier: speech therapy I acknowledge that I performed a full physical examination on this patient within 24 hours of admission to the rehabilitation unit and believe the patient is a good candidate for comprehensive interdisciplinary rehab care and is anticipated to make reasonable goals in a reasonable period of time as outlined above. Consultation Date/Type/Reason Admit Date/Time Jun 08, 2017 at 21:30 Reason for Consultation Rehabilitation Post Admission Physician Evaluation Hx of Present Illness Patient is a pleasant 76-year-old female with a history of atrial fibrillation, pacemaker, hypothyroidism who was admitted with altered mental status, dysarthria, facial droop, and left-sided weakness. Patient felt to have right infarct CVA. An MRI of the brain was unable to be performed due to her mitral valve replacement and pacemaker. Patient's hospital course was also notable for sepsis due to UTI, and pleural effusion requiring thoracentesis. Patient now has significant impairments in self-care and mobility and cognition as compared to baseline and has been cleared to transfer to the rehabilitation unit for comprehensive interdisciplinary rehab care. Past Medical History Afib CAD pacemaker Functional History: Prior to recent events, patient was independent in self care and mobility Currently: Patient requires maximal assist I have reviewed the preadmission screen and the patient's current functional status is consistent with the preadmission screen. SOCIAL HISTORY: The patient lives at home and hopes to return there upon discharge. Past Surgical History Past Surgical Hx: cholecystectomy, other Social History Smoking Status: Never smoker Exam/Review of Systems Vital Signs Vitals Vital Signs Date Time Temp Pulse Resp B/P Pulse Ox O2 Delivery O2 Flow Rate FiO2 06/09/17 07:46 98.4 75 18 111/55 96 06/09/17 07:39 2.0 06/09/17 02:10 Nasal Cannula Intake and Output 06/08/17 06/08/17 06/09/17 14:59 22:59 06:59 Intake Total 200 ml 50 ml Balance 200 ml 50 ml Exam Neurologically she is awake and alert and able to follow simple one-step commands She demonstrates good strength in the right upper and lower extremity She has antigravity strength in the left upper and lower extremity She has impaired dynamic balance Her skin exam does reveal stage II sacral decubitus ulcer Constitutional: alert Head: normocephalic Eyes: nl conjunctiva ENMT: nl external ears & nose Neck: supple Respiratory: clear to auscultation Gastrointestinal: soft Genitourinary - Female: nl adnexae Results Result Diagram: 06/09/17 0609 06/09/17 0609 Results 24 hrs Laboratory Tests Test 06/09/17 02:00 06/09/17 06:09 Urine Color YELLOW Urine Clarity SLIGHTLY CLOUDY A Urine pH 6.0 Urine Specific [place] 1.019 Urine Ketones TRACE A Urine Nitrite NEGATIVE Urine Bilirubin NEGATIVE Urine Urobilinogen 1+ H Urine Leukocyte Esterase NEGATIVE Urine Microscopic RBC 1 Urine Microscopic WBC 3 Urine Squamous Epithelial Cells FEW Urine Bacteria FEW A Urine Hemoglobin NEGATIVE Urine Glucose NEGATIVE Urine Total Protein NEGATIVE White Blood Count 9.8 Red Blood Count 3.55 L Hemoglobin 10.5 L Hematocrit 31.4 L Mean Corpuscular Volume 88.5 Mean Corpuscular Hemoglobin 29.6 Mean Corpuscular Hemoglobin Concent 33.4 Red Cell Distribution Width 15.5 H Platelet Count 174 Mean Platelet Volume 13.0 H Neutrophils % 76.1 Lymphocytes % 8.5 L Monocytes % 5.8 Eosinophils % 1.6 Basophils % 0.6 Nucleated Red Blood Cells % 0.0 Neutrophils # 7.4 Lymphocytes # 0.8 Monocytes # 0.6 Eosinophils # 0.2 Basophils # 0.1 Nucleated Red Blood Cells # 0.0 Prothrombin Time 34.6 H Prothrombin Time Ratio 2.7 INR International Normalized Ratio 3.37 Sodium Level 130 L Potassium Level 4.7 Chloride Level 94 L Carbon Dioxide Level 33 H Anion Gap 8 Blood Urea Nitrogen 26 H Creatinine 0.78 Glucose Level 65 L Calcium Level 7.4 L Total Bilirubin 0.3 Direct Bilirubin 0.00 Indirect Bilirubin 0.3 Aspartate Amino Transf (AST/SGOT) 57 H Alanine Aminotransferase (ALT/SGPT) 55 Alkaline Phosphatase 110 Total Protein 5.0 L Albumin 1.9 L Globulin 3.10 Albumin/Globulin Ratio 0.61 Medications Medications Current Medications Lubiprostone (Amitiza) 24 mcg BID PO Last administered on 06/09/17 08:41; Admin Dose 24 MCG; Start 06/08/17 at 22:49 Nitroglycerin (Nitroglycerin (Sl Tab) 0.4 Mg) 0.4 tab PRN SL ; Start 06/08/17 at 22:49 Pantoprazole (Protonix Tab) 40 mg DAILY@06 PO Last administered on 06/09/17 06 :37; Admin Dose 40 MG; Start 06/08/17 at 22:49 Acetaminophen (Tylenol Tab) 650 mg Q6H PRN PO PAIN AND OR ELEVATED TEMP; Start 06/08/17 at 22:49 Magnesium Oxide (Mag-Ox 400) 400 mg DAILY PO Last administered on 06/09/17 08: 41; Admin Dose 400 MG; Start 06/08/17 at 22:49 Lactobacillus Acidophilus/ Rhamnosus (Culturelle) 1 cap DAILY PO Last administered on 06/09/17 08:46; Admin Dose 1 CAP; Start 06/08/17 at 22:49 Atenolol (Tenormin) 25 mg BID PO ; Start 06/08/17 at 22:49 Polyethylene Glycol 8.5 gm 8.5 gm DAILY PO Last administered on 06/09/17 08:47 ; Admin Dose 8.5 GM; Start 06/08/17 at 22:49 Meropenem/Sodium Chloride (Merrem 1 Gm/50 ml (Pmx)) 50 ml @ 200 mls/hr Q12H IVPB Last administered on 06/09/17 12:10; Admin Dose 200 MLS/HR; Start at 22:49 Diltiazem HCl (Cardizem) 30 mg Q8 PO Last administered on 06/09/17 06:40; Admin Dose 30 MG; Start 06/08/17 at 22:49 Bisacodyl (Dulcolax Supp) 10 mg Q48H PRN [place] CONSTIPATION; Start 06/08/17 at 22: 49 Multivitamins Therapeutic (Theragran) 1 tab DAILY PO Last administered on 08:41; Admin Dose 1 TAB; Start 06/08/17 at 22:49 Folic Acid (Folic Acid) 1 mg DAILY PO Last administered on 06/09/17 08:46; Admin Dose 1 MG; Start 06/08/17 at 22:49 Furosemide (Lasix) 40 mg DAILY IV ; Start 06/08/17 at 22:49 Warfarin Sodium (Coumadin) 3 mg DAILY@17 PO ; Start 06/10/17 at 17:00 Fluconazole (Diflucan) 150 mg DAILY PO Last administered on 06/09/17 10:16; Admin Dose 150 MG; Start 06/09/17 at 09:00 Atorvastatin Calcium (Lipitor) 10 mg DAILY@21 PO ; Start 06/09/17 at 21:00 Ergocalciferol (Drisdol) 50,000 unit Sa@09 PO ; Start 06/14/17 at 09:00 ROBY RANGEL MD Jun 09, 2017 13:41
--- NOTE | 2017-06-09 13:55 | CONS ---
Date/Time of Note Date/Time of Note DATE: 06/09/17 TIME: 13:53 Assessment/Plan Assessment/Plan Chief Complaint/Hosp Course IMP: 1.tachycardia-? S Tach/PAF-overall improved when receives BB/CCB regimen [facility] [place] device 2.Hypotension-improved/stable/tolerating medications 3.AF-some RVR as dilt/atenolol held 4.Fevers/leukcytosis-increased significantly 5. TIA 6.UTI 7. coagulopathy-s/p Vitamin k and now again therapeutic 8. L sided rib pain-positive TTP/resolved-negative troponin 9. 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 Hypontremia-improved 14. Episode of AMS and [employer] thought to be due to possible CVA-head CT negative. Currently stable 15. CHF-systolic acute on chronic LVEF 40% by echo this admit 16. Pleural effusion s/p L thoracentesis Recc: -Now tyrasnferred to rehab -Continue BB/CCB as tolerated -Continue abx's and f/u cx data -Coumadin now therapeutic and thus will d/c arixtra at this time and follow INR closely -continue lasix as tolerated and patient will comply Problems: Consultation Date/Type/Reason Admit Date/Time Jun 08, 2017 at 21:30 Initial Consult Date 06/08/2017 Type of Consultation: cardiology Reason for Consultation PPM/AF Referring Provider: DUANE NGUYỄN MD Exam/Review of Systems Vital Signs Vitals Vital Signs Date Time Temp Pulse Resp B/P Pulse Ox O2 Delivery O2 Flow Rate FiO2 06/09/17 07:46 98.4 75 18 111/55 96 06/09/17 07:39 2.0 06/09/17 02:10 Nasal Cannula Intake and Output 06/08/17 06/08/17 06/09/17 15:00 23:00 07:00 Intake Total 200 ml 150 ml Balance 200 ml 150 ml Exam Review of Systems: CONSTITUTIONAL: No fevers, chills. PULMONARY: No sob CARDIOVASCULAR: No chest pain/palpitations GASTROINTESTINAL: No nausea/vomiting. GENITOURINARY: No hematuria/dysuria. MUSCULOSKELETAL: No myagias/arthalgias. PSYCHIATRIC: The patient denies depression. NEUROLOGIC: No weakness Constitutional: alert Psych: no complaints Head: normocephalic ENMT: mucosa pink and moist Neck: jvd (9 cm water), supple Respiratory: diminished breath sounds Cardiovascular: irregular rhythm Gastrointestinal: non-tender, soft Musculoskeletal: muscle weakness (generalized) Extremities: edema (none) Neurological: other (NO focal deficits) Results Result Diagram: 06/09/17 0609 06/09/17 0609 Results 24 hrs Laboratory Tests Test 06/09/17 02:00 06/09/17 06:09 Urine Color YELLOW Urine Clarity SLIGHTLY CLOUDY A Urine pH 6.0 Urine Specific [place] 1.019 Urine Ketones TRACE A Urine Nitrite NEGATIVE Urine Bilirubin NEGATIVE Urine Urobilinogen 1+ H Urine Leukocyte Esterase NEGATIVE Urine Microscopic RBC 1 Urine Microscopic WBC 3 Urine Squamous Epithelial Cells FEW Urine Bacteria FEW A Urine Hemoglobin NEGATIVE Urine Glucose NEGATIVE Urine Total Protein NEGATIVE White Blood Count 9.8 Red Blood Count 3.55 L Hemoglobin 10.5 L Hematocrit 31.4 L Mean Corpuscular Volume 88.5 Mean Corpuscular Hemoglobin 29.6 Mean Corpuscular Hemoglobin Concent 33.4 Red Cell Distribution Width 15.5 H Platelet Count 174 Mean Platelet Volume 13.0 H Neutrophils % 76.1 Lymphocytes % 8.5 L Monocytes % 5.8 Eosinophils % 1.6 Basophils % 0.6 Nucleated Red Blood Cells % 0.0 Neutrophils # 7.4 Lymphocytes # 0.8 Monocytes # 0.6 Eosinophils # 0.2 Basophils # 0.1 Nucleated Red Blood Cells # 0.0 Prothrombin Time 34.6 H Prothrombin Time Ratio 2.7 INR International Normalized Ratio 3.37 Sodium Level 130 L Potassium Level 4.7 Chloride Level 94 L Carbon Dioxide Level 33 H Anion Gap 8 Blood Urea Nitrogen 26 H Creatinine 0.78 Glucose Level 65 L Calcium Level 7.4 L Total Bilirubin 0.3 Direct Bilirubin 0.00 Indirect Bilirubin 0.3 Aspartate Amino Transf (AST/SGOT) 57 H Alanine Aminotransferase (ALT/SGPT) 55 Alkaline Phosphatase 110 Total Protein 5.0 L Albumin 1.9 L Globulin 3.10 Albumin/Globulin Ratio 0.61 Medications Medications Current Medications Lubiprostone (Amitiza) 24 mcg BID PO Last administered on 06/09/17t 08:41; Admin Dose 24 MCG; Start 06/08/17 at 22:49 Nitroglycerin (Nitroglycerin (Sl Tab) 0.4 Mg) 0.4 tab PRN SL ; Start 06/08/17 at 22:49 Pantoprazole (Protonix Tab) 40 mg DAILY@06 PO Last administered on 06/09/17 06 :37; Admin Dose 40 MG; Start 06/08/17 at 22:49 Acetaminophen (Tylenol Tab) 650 mg Q6H PRN PO PAIN AND OR ELEVATED TEMP; Start 06/08/17 at 22:49 Magnesium Oxide (Mag-Ox 400) 400 mg DAILY PO Last administered on 06/09/17 08: 41; Admin Dose 400 MG; Start 06/08/17 at 22:49 Lactobacillus Acidophilus/ Rhamnosus (Culturelle) 1 cap DAILY PO Last administered on 06/09/17 08:46; Admin Dose 1 CAP; Start 06/08/17 at 22:49 Atenolol (Tenormin) 25 mg BID PO ; Start 06/08/17 at 22:49 Polyethylene Glycol 8.5 gm 8.5 gm DAILY PO Last administered on 06/09/17 08:47 ; Admin Dose 8.5 GM; Start 06/08/17 at 22:49 Meropenem/Sodium Chloride (Merrem 1 Gm/50 ml (Pmx)) 50 ml @ 200 mls/hr Q12H IVPB Last administered on 06/09/17 12:10; Admin Dose 200 MLS/HR; Start at 22:49 Diltiazem HCl (Cardizem) 30 mg Q8 PO Last administered on 06/09/17 06:40; Admin Dose 30 MG; Start 06/08/17 at 22:49 Bisacodyl (Dulcolax Supp) 10 mg Q48H PRN [place] CONSTIPATION; Start 06/08/17 at 22: 49 Multivitamins Therapeutic (Theragran) 1 tab DAILY PO Last administered on 08:41; Admin Dose 1 TAB; Start 06/08/17 at 22:49 Folic Acid (Folic Acid) 1 mg DAILY PO Last administered on 06/09/17 08:46; Admin Dose 1 MG; Start 06/08/17 at 22:49 Furosemide (Lasix) 40 mg DAILY IV ; Start 06/08/17 at 22:49 Warfarin Sodium (Coumadin) 3 mg DAILY@17 PO ; Start 06/10/17 at 17:00 Fluconazole (Diflucan) 150 mg DAILY PO Last administered on 7/24/17at 10:16; Admin Dose 150 MG; Start 06/09/17 at 09:00 Atorvastatin Calcium (Lipitor) 10 mg DAILY@21 PO ; Start 06/09/17 at 21:00 Ergocalciferol (Drisdol) 50,000 unit Sa@09 PO ; Start 06/14/17 at 09:00 PLACIDO COREA Jun 09, 2017 13:55
[2017-06-09 14:00] VITALS: BP 119/56; RESP 18
--- NOTE | 2017-06-09 14:01 | CONS ---
Date/Time of Note Date/Time of Note DATE: 06/09/17 TIME: 13:58 Assessment/Plan Assessment/Plan Chief Complaint/Hosp Course Transferred to acute rehab. Alert, feels much better, family at bedside, no fevers WBC 9.8 H&H 10.5 and 31.4 platelets 174 neutrophils 76.1 BN 26 creatinine 0.78 Antibiotics: Fluconazole meropenem Microbiology: Pleural fluid cultures remain negative Physical examination: Well-developed, fragile Israeli-speaking elderly woman who is alert in no distress. Head atraumatic normocephalic, sclera nonicteric. Neck is supple. Chest rise symmetrical breath sounds diminished basis. Heart : S1, S2. Abdomen soft, bowel tones present. Assessment: 1. Status post sepsis 2. Left kidney hematoma 3. Nina albicans UTI 4. Resolving pneumonia with exudative left pleural effusion, status post thoracentesis 5. Coronary artery disease status post permanent pacemaker and mitral valve mechanical prosthesis 6. Allergy: Penicillin Plan: Overall doing much better, continue present care, antibiotics, follow chest x-ray, follow recommendations of consultants. Discussed with patient and daughter at bedside Discussed with RN Problems: Consultation Date/Type/Reason Admit Date/Time Jun 08, 2017 at 21:30 Initial Consult Date Type of Consultation: id Referring Provider: DUANE NGUYỄN MD Exam/Review of Systems Vital Signs Vitals Vital Signs Date Time Temp Pulse Resp B/P Pulse Ox O2 Delivery O2 Flow Rate FiO2 06/09/17 07:46 98.4 75 18 111/55 96 06/09/17 07:39 2.0 06/09/17 02:10 Nasal Cannula Intake and Output 06/08/17 06/08/17 06/09/17 15:00 23:00 07:00 Intake Total 200 ml 150 ml Balance 200 ml 150 ml Results Result Diagram: 06/09/17 0609 06/09/17 0609 Results 24 hrs Laboratory Tests Test 06/09/17 02:00 06/09/17 06:09 Urine Color YELLOW Urine Clarity SLIGHTLY CLOUDY A Urine pH 6.0 Urine Specific [place] 1.019 Urine Ketones TRACE A Urine Nitrite NEGATIVE Urine Bilirubin NEGATIVE Urine Urobilinogen 1+ H Urine Leukocyte Esterase NEGATIVE Urine Microscopic RBC 1 Urine Microscopic WBC 3 Urine Squamous Epithelial Cells FEW Urine Bacteria FEW A Urine Hemoglobin NEGATIVE Urine Glucose NEGATIVE Urine Total Protein NEGATIVE White Blood Count 9.8 Red Blood Count 3.55 L Hemoglobin 10.5 L Hematocrit 31.4 L Mean Corpuscular Volume 88.5 Mean Corpuscular Hemoglobin 29.6 Mean Corpuscular Hemoglobin Concent 33.4 Red Cell Distribution Width 15.5 H Platelet Count 174 Mean Platelet Volume 13.0 H Neutrophils % 76.1 Lymphocytes % 8.5 L Monocytes % 5.8 Eosinophils % 1.6 Basophils % 0.6 Nucleated Red Blood Cells % 0.0 Neutrophils # 7.4 Lymphocytes # 0.8 Monocytes # 0.6 Eosinophils # 0.2 Basophils # 0.1 Nucleated Red Blood Cells # 0.0 Prothrombin Time 34.6 H Prothrombin Time Ratio 2.7 INR International Normalized Ratio 3.37 Sodium Level 130 L Potassium Level 4.7 Chloride Level 94 L Carbon Dioxide Level 33 H Anion Gap 8 Blood Urea Nitrogen 26 H Creatinine 0.78 Glucose Level 65 L Calcium Level 7.4 L Total Bilirubin 0.3 Direct Bilirubin 0.00 Indirect Bilirubin 0.3 Aspartate Amino Transf (AST/SGOT) 57 H Alanine Aminotransferase (ALT/SGPT) 55 Alkaline Phosphatase 110 Total Protein 5.0 L Albumin 1.9 L Globulin 3.10 Albumin/Globulin Ratio 0.61 Medications Medications Current Medications Lubiprostone (Amitiza) 24 mcg BID PO Last administered on 06/09/17 08:41; Admin Dose 24 MCG; Start 06/08/17 at 22:49 Nitroglycerin (Nitroglycerin (Sl Tab) 0.4 Mg) 0.4 tab PRN SL ; Start 06/08/17 at 22:49 Pantoprazole (Protonix Tab) 40 mg DAILY@06 PO Last administered on 06/09/17 06 :37; Admin Dose 40 MG; Start 06/08/17 at 22:49 Acetaminophen (Tylenol Tab) 650 mg Q6H PRN PO PAIN AND OR ELEVATED TEMP; Start 06/08/17 at 22:49 Magnesium Oxide (Mag-Ox 400) 400 mg DAILY PO Last administered on 06/09/17 08: 41; Admin Dose 400 MG; Start 06/08/17 at 22:49 Lactobacillus Acidophilus/ Rhamnosus (Culturelle) 1 cap DAILY PO Last administered on 06/09/17 08:46; Admin Dose 1 CAP; Start 06/08/17 at 22:49 Atenolol (Tenormin) 25 mg BID PO ; Start 06/08/17 at 22:49 Polyethylene Glycol 8.5 gm 8.5 gm DAILY PO Last administered on 06/09/17 08:47 ; Admin Dose 8.5 GM; Start 06/08/17 at 22:49 Meropenem/Sodium Chloride (Merrem 1 Gm/50 ml (Pmx)) 50 ml @ 200 mls/hr Q12H IVPB Last administered on 06/09/17 12:10; Admin Dose 200 MLS/HR; Start at 22:49 Diltiazem HCl (Cardizem) 30 mg Q8 PO Last administered on 06/09/17 06:40; Admin Dose 30 MG; Start 06/08/17 at 22:49 Bisacodyl (Dulcolax Supp) 10 mg Q48H PRN [place] CONSTIPATION; Start 06/08/17 at 22: 49 Multivitamins Therapeutic (Theragran) 1 tab DAILY PO Last administered on 08:41; Admin Dose 1 TAB; Start 06/08/17 at 22:49 Folic Acid (Folic Acid) 1 mg DAILY PO Last administered on 06/09/17 08:46; Admin Dose 1 MG; Start 06/08/17 at 22:49 Furosemide (Lasix) 40 mg DAILY IV ; Start 06/08/17 at 22:49 Warfarin Sodium (Coumadin) 3 mg DAILY@17 PO ; Start 06/10/17 at 17:00 Fluconazole (Diflucan) 150 mg DAILY PO Last administered on 06/09/17 10:16; Admin Dose 150 MG; Start 06/09/17 at 09:00 Atorvastatin Calcium (Lipitor) 10 mg DAILY@21 PO ; Start 06/09/17 at 21:00 Ergocalciferol (Drisdol) 50,000 unit Sa@09 PO ; Start 06/14/17 at 09:00 BALDOMERO STARKS NP Jun 09, 2017 14:01
--- NOTE | 2017-06-09 14:16 | CONS ---
Date/Time of Note Date/Time of Note DATE: 06/09/17 TIME: 14:07 Assessment/Plan Assessment/Plan Chief Complaint/Hosp Course 76 yo female on Coumadin admitted for TIA, who was found to have partial thrombosis of internal jugular vein. # Thrombosis while on Coumadin - Given that patient has a prosthetic mitral valve, her anticoagulation options are limited to Coumadin but this was on hold because of supratherapeutic INR. Especially since this (IJ clot) is a relatively asymptomatic partial thrombosis, I do not think we need to change anticoagulation at this time. - I would recommend to keep the INR between 2.5-3.5. Given INR was >4 and urology concern for perinephric bleed., patient given one time dose of vit K low dose on 05/31/17. When INR became subtherapeutic, patient restarted on 3 mg coumadin 06/01 and 06/02/17. Patient given 7.5 mg of coumadin on 06/04/[address] Nguyễn and 4 mg coumadin on 06/05/17. Given that patient supratherapeutic on 4 mg dose and takes 3-5 days to see effect of coumadin, will likely see INR continue to rise after 06/04/17 dose. Now INR 3.37. Can continue Coumadin 3mg q day - fondaparinox can be stopped. HIT screen negative. - Repeat renal US 06/04/17 showed 1. Mild left hydronephrosis. 2. Otherwise normal renal ultrasound. hgb is fairly stable ~11-12 and will follow # UTI -continue antibiotics #Ischemic Cardiomyopathy -management per cardiology Problems: Problems: Consultation Date/Type/Reason Admit Date/Time Jun 08, 2017 at 21:30 Initial Consult Date May 29, 2017 Type of Consultation: Hematology Reason for Consultation hematoma. R IJ thrombosis Referring Provider: DUANE NGUYỄN MD 24 HR Interval Summary Free Text/Dictation pt transferred to acute rehab Exam/Review of Systems Vital Signs Vitals Vital Signs Date Time Temp Pulse Resp B/P Pulse Ox O2 Delivery O2 Flow Rate FiO2 06/09/17 07:46 98.4 75 18 111/55 96 06/09/17 07:39 2.0 06/09/17 02:10 Nasal Cannula Intake and Output 06/08/17 06/08/17 06/09/17 15:00 23:00 07:00 Intake Total 200 ml 150 ml Balance 200 ml 150 ml Exam Constitutional: alert, oriented Psych: no complaints Head: normocephalic Eyes: nl conjunctiva ENMT: nl external ears & nose Neck: non-tender, supple Respiratory: clear to auscultation Cardiovascular: regular rate and rhythm Gastrointestinal: soft Musculoskeletal: nl extremities to inspection, nl gait and stance Results Result Diagram: 06/09/17 0609 06/09/17 0609 Results 24 hrs Laboratory Tests Test 06/09/17 02:00 06/09/17 06:09 Urine Color YELLOW Urine Clarity SLIGHTLY CLOUDY A Urine pH 6.0 Urine Specific [place] 1.019 Urine Ketones TRACE A Urine Nitrite NEGATIVE Urine Bilirubin NEGATIVE Urine Urobilinogen 1+ H Urine Leukocyte Esterase NEGATIVE Urine Microscopic RBC 1 Urine Microscopic WBC 3 Urine Squamous Epithelial Cells FEW Urine Bacteria FEW A Urine Hemoglobin NEGATIVE Urine Glucose NEGATIVE Urine Total Protein NEGATIVE White Blood Count 9.8 Red Blood Count 3.55 L Hemoglobin 10.5 L Hematocrit 31.4 L Mean Corpuscular Volume 88.5 Mean Corpuscular Hemoglobin 29.6 Mean Corpuscular Hemoglobin Concent 33.4 Red Cell Distribution Width 15.5 H Platelet Count 174 Mean Platelet Volume 13.0 H Neutrophils % 76.1 Lymphocytes % 8.5 L Monocytes % 5.8 Eosinophils % 1.6 Basophils % 0.6 Nucleated Red Blood Cells % 0.0 Neutrophils # 7.4 Lymphocytes # 0.8 Monocytes # 0.6 Eosinophils # 0.2 Basophils # 0.1 Nucleated Red Blood Cells # 0.0 Prothrombin Time 34.6 H Prothrombin Time Ratio 2.7 INR International Normalized Ratio 3.37 Sodium Level 130 L Potassium Level 4.7 Chloride Level 94 L Carbon Dioxide Level 33 H Anion Gap 8 Blood Urea Nitrogen 26 H Creatinine 0.78 Glucose Level 65 L Calcium Level 7.4 L Total Bilirubin 0.3 Direct Bilirubin 0.00 Indirect Bilirubin 0.3 Aspartate Amino Transf (AST/SGOT) 57 H Alanine Aminotransferase (ALT/SGPT) 55 Alkaline Phosphatase 110 Total Protein 5.0 L Albumin 1.9 L Globulin 3.10 Albumin/Globulin Ratio 0.61 Medications Medications Current Medications Lubiprostone (Amitiza) 24 mcg BID PO Last administered on 06/09/17t 08:41; Admin Dose 24 MCG; Start 06/08/17 at 22:49 Nitroglycerin (Nitroglycerin (Sl Tab) 0.4 Mg) 0.4 tab PRN SL ; Start 06/08/17 at 22:49 Pantoprazole (Protonix Tab) 40 mg DAILY@06 PO Last administered on 06/09/17 06 :37; Admin Dose 40 MG; Start 06/08/17 at 22:49 Acetaminophen (Tylenol Tab) 650 mg Q6H PRN PO PAIN AND OR ELEVATED TEMP; Start 06/08/17 at 22:49 Magnesium Oxide (Mag-Ox 400) 400 mg DAILY PO Last administered on 06/09/17 08: 41; Admin Dose 400 MG; Start 06/08/17 at 22:49 Lactobacillus Acidophilus/ Rhamnosus (Culturelle) 1 cap DAILY PO Last administered on 06/09/17 08:46; Admin Dose 1 CAP; Start 06/08/17 at 22:49 Atenolol (Tenormin) 25 mg BID PO ; Start 06/08/17 at 22:49 Polyethylene Glycol 8.5 gm 8.5 gm DAILY PO Last administered on 06/09/17 08:47 ; Admin Dose 8.5 GM; Start 06/08/17 at 22:49 Meropenem/Sodium Chloride (Merrem 1 Gm/50 ml (Pmx)) 50 ml @ 200 mls/hr Q12H IVPB Last administered on 06/09/17 12:10; Admin Dose 200 MLS/HR; Start at 22:49 Diltiazem HCl (Cardizem) 30 mg Q8 PO Last administered on 06/09/17 06:40; Admin Dose 30 MG; Start 06/08/17 at 22:49 Bisacodyl (Dulcolax Supp) 10 mg Q48H PRN [place] CONSTIPATION; Start 06/08/17 at 22: 49 Multivitamins Therapeutic (Theragran) 1 tab DAILY PO Last administered on 08:41; Admin Dose 1 TAB; Start 06/08/17 at 22:49 Folic Acid (Folic Acid) 1 mg DAILY PO Last administered on 06/09/17 08:46; Admin Dose 1 MG; Start 06/08/17 at 22:49 Furosemide (Lasix) 40 mg DAILY IV ; Start 06/08/17 at 22:49 Warfarin Sodium (Coumadin) 3 mg DAILY@17 PO ; Start 06/10/17 at 17:00 Fluconazole (Diflucan) 150 mg DAILY PO Last administered on 06/09/17t 10:16; Admin Dose 150 MG; Start 06/09/17 at 09:00 Atorvastatin Calcium (Lipitor) 10 mg DAILY@21 PO ; Start 06/09/17 at 21:00 Ergocalciferol (Drisdol) 50,000 unit Sa@09 PO ; Start 06/14/17 at 09:00 NATACHA SALAMANCA M.D. Jun 09, 2017 14:16
--- NOTE | 2017-06-09 19:04 | QN ---
Documentation Comment [id number] DUANE NGUYỄN MD Jun 09, 2017 19:04
[2017-06-09 20:00] VITALS: BP 111/55; RESP 18
[2017-06-09] MEDS: ATORVASTATIN 10 MG TAB PO SCH (21:30)
[2017-06-10] VITALS (7 sets, daily range): BP systolic 86–136; BP diastolic 50–63; PULSE 76–79; RESP 18–20
[2017-06-10] MEDS: LEVALBUTEROL (NEB) 0.63 MG/3 ML AMP HHN SCH ×4 (02:00→19:52)
[2017-06-10] MEDS: DILTIAZEM 30 MG TAB PO SCH ×4 (06:00→22:00)
[2017-06-10] MEDS: LEVOTHYROXINE 75 MCG TAB PO SCH (06:17)
[2017-06-10] MEDS: PANTOPRAZOLE (EC) 40 MG TAB PO SCH (06:17)
[2017-06-10 07:16] LABS: INR 2.81; PT RATIO 2.3
[2017-06-10 07:21] LABS: ALBUMIN 1.9 g/dl (3.3-4.9); ALBUMIN/GLOBULIN RATIO 0.61; BILIRUBIN,INDIRECT 0.3 mg/dl (0-1.1); BILIRUBIN,TOTAL 0.3 mg/dl (0.2-1.3); CALCIUM 7.4 mg/dl (8.4-10.2); CREATININE 0.83 mg/dl (0.44-1.00); POTASSIUM 4.6 mmol/L (3.5-5.1)
[2017-06-10] MEDS: LUBIPROSTONE 24 MCG CAP PO SCH ×2 (08:45→20:17)
[2017-06-10] MEDS: LACTOBACILLUS RHAMNOSUS CAP PO SCH (08:45)
[2017-06-10] MEDS: FLUCONAZOLE 150 MG TAB PO SCH (08:45)
[2017-06-10] MEDS: MAGNESIUM OXIDE 400 MG TAB PO SCH (08:45)
[2017-06-10] MEDS: FOLIC ACID 1 MG TAB PO SCH (08:45)
[2017-06-10] MEDS: MULTIVITAMINS THERAPEUTIC TAB PO SCH (08:45)
[2017-06-10] MEDS: POLYETHYLENE GLYCOL 17 GM PACKET PO SCH (08:45)
[2017-06-10] MEDS: ATENOLOL 25 MG TAB PO SCH ×2 (08:46→20:17)
[2017-06-10] MEDS: FUROSEMIDE 40 MG INJ IV SCH (08:46)
--- NOTE | 2017-06-10 10:31 | CONS ---
Date/Time of Note Date/Time of Note DATE: 06/10/17 TIME: 10:27 Assessment/Plan Assessment/Plan Chief Complaint/Hosp Course 76 yo female on Coumadin admitted for TIA, who was found to have partial thrombosis of internal jugular vein. # Thrombosis while on Coumadin - Given that patient has a prosthetic mitral valve, her anticoagulation options are limited to Coumadin but this was on hold because of supratherapeutic INR. Especially since this (IJ clot) is a relatively asymptomatic partial thrombosis, I do not think we need to change anticoagulation at this time. - I would recommend to keep the INR between 2.5-3.5. Given INR was >4 and urology concern for perinephric bleed., patient given one time dose of vit K low dose on 05/31/17. When INR became subtherapeutic, patient restarted on 3 mg coumadin 06/01 and 06/02/17. Patient given 7.5 mg of coumadin on 06/04/[address] Nguyễn and 4 mg coumadin on 06/05/17. INR currently at 2.8. Would recommend to give Coumadin 3mg today - fondaparinox can be stopped. HIT screen negative. - Repeat renal US 06/04/17 showed 1. Mild left hydronephrosis. 2. Otherwise normal renal ultrasound. hgb is fairly stable ~11-12 and will follow # UTI -continue antibiotics #Ischemic Cardiomyopathy -management per cardiology Problems: Consultation Date/Type/Reason Admit Date/Time Jun 08, 2017 at 21:30 Initial Consult Date May 29, 2017 Type of Consultation: Hematology Reason for Consultation R IJ thrombosis , coagulopathy Referring Provider: DUANE NGUYỄN MD 24 HR Interval Summary Free Text/Dictation pt is ambulating. gaining strength in the LLE and LUE Exam/Review of Systems Vital Signs Vitals Vital Signs Date Time Temp Pulse Resp B/P Pulse Ox O2 Delivery O2 Flow Rate FiO2 06/10/17 07:38 98.5 76 18 110/55 97 06/10/17 07:31 Nasal Cannula 3.0 Intake and Output 06/09/17 06/09/17 06/10/17 15:00 23:00 07:00 Intake Total 812 ml 360 ml 320 ml Output Total 850 ml 200 ml Balance -38 ml 160 ml 320 ml Exam Constitutional: alert, oriented Psych: no complaints Head: normocephalic Eyes: nl conjunctiva ENMT: nl external ears & nose Neck: non-tender, supple Respiratory: clear to auscultation Cardiovascular: regular rate and rhythm Gastrointestinal: soft Musculoskeletal: nl extremities to inspection, nl gait and stance, other ( weakness in LUE and LLE improved) Extremities: normal pulses Results Result Diagram: 06/09/17 0609 06/10/17 0615 Results 24 hrs Laboratory Tests Test 06/10/17 06:15 Prothrombin Time 30.0 H Prothrombin Time Ratio 2.3 INR International Normalized Ratio 2.81 Sodium Level 132 L Potassium Level 4.6 Chloride Level 92 L Carbon Dioxide Level 33 H Anion Gap 12 Blood Urea Nitrogen 26 H Creatinine 0.83 Glucose Level 72 Calcium Level 7.4 L Total Bilirubin 0.3 Direct Bilirubin 0.00 Indirect Bilirubin 0.3 Aspartate Amino Transf (AST/SGOT) 54 H Alanine Aminotransferase (ALT/SGPT) 50 Alkaline Phosphatase 110 Total Protein 5.0 L Albumin 1.9 L Globulin 3.10 Albumin/Globulin Ratio 0.61 Medications Medications Current Medications Lubiprostone (Amitiza) 24 mcg BID PO Last administered on 06/10/17 08:45; Admin Dose 24 MCG; Start 06/08/17 at 22:49 Nitroglycerin (Nitroglycerin (Sl Tab) 0.4 Mg) 0.4 tab PRN SL ; Start 06/08/17 at 22:49 Pantoprazole (Protonix Tab) 40 mg DAILY@06 PO Last administered on 06/10/17 06 :17; Admin Dose 40 MG; Start 06/08/17 at 22:49 Acetaminophen (Tylenol Tab) 650 mg Q6H PRN PO PAIN AND OR ELEVATED TEMP; Start 06/08/17 at 22:49 Magnesium Oxide (Mag-Ox 400) 400 mg DAILY PO Last administered on 06/10/17 08: 45; Admin Dose 400 MG; Start 06/08/17 at 22:49 Lactobacillus Acidophilus/ Rhamnosus (Culturelle) 1 cap DAILY PO Last administered on 06/10/17 08:45; Admin Dose 1 CAP; Start 06/08/17 at 22:49 Atenolol (Tenormin) 25 mg BID PO Last administered on 06/09/17 21:30; Admin Dose 25 MG; Start 06/08/17 at 22:49 Polyethylene Glycol 8.5 gm 8.5 gm DAILY PO Last administered on 06/10/17 08:45 ; Admin Dose 8.5 GM; Start 06/08/17 at 22:49 Meropenem/Sodium Chloride (Merrem 1 Gm/50 ml (Pmx)) 50 ml @ 200 mls/hr Q12H IVPB Last administered on 06/09/17 22:30; Admin Dose 200 MLS/HR; Start at 22:49 Diltiazem HCl (Cardizem) 30 mg Q8 PO Last administered on 06/09/17 21:30; Admin Dose 30 MG; Start 06/08/17 at 22:49 Bisacodyl (Dulcolax Supp) 10 mg Q48H PRN [place] CONSTIPATION; Start 06/08/17 at 22: 49 Multivitamins Therapeutic (Theragran) 1 tab DAILY PO Last administered on 08:45; Admin Dose 1 TAB; Start 06/08/17 at 22:49 Folic Acid (Folic Acid) 1 mg DAILY PO Last administered on 06/10/17 08:45; Admin Dose 1 MG; Start 06/08/17 at 22:49 Furosemide (Lasix) 40 mg DAILY IV ; Start 06/08/17 at 22:49 Warfarin Sodium (Coumadin) 3 mg DAILY@17 PO ; Start 06/10/17 at 17:00; Status Future hold Fluconazole (Diflucan) 150 mg DAILY PO Last administered on 06/10/17 08:45; Admin Dose 150 MG; Start 06/09/17 at 09:00 Atorvastatin Calcium (Lipitor) 10 mg DAILY@21 PO Last administered on 21:30; Admin Dose 10 MG; Start 06/09/17 at 21:00 Ergocalciferol (Drisdol) 50,000 unit Sa@09 PO ; Start 06/14/17 at 09:00 NATACHA SALAMANCA M.D. Jun 10, 2017 10:31
[2017-06-10] MEDS: MEROPENEM 1 GM/50ML(PMX) 50 ML IVPB SCH ×2 (11:05→22:06)
--- NOTE | 2017-06-10 11:05 | CONS ---
Date/Time of Note Date/Time of Note DATE: 06/10/17 TIME: 11:03 Consult Date/Type/Reason Admit Date/Time Jun 08, 2017 at 21:30 Initial Consult Date Type of Consultation: Hematology Ordering Provider: DUANE NGUYỄN MD Subjective No new complaint Objective Lungs clear anteriorly Abdomen soft Mild max assist Vital Signs Date Time Temp Pulse Resp B/P Pulse Ox O2 Delivery O2 Flow Rate FiO2 06/10/17 07:38 98.5 76 18 110/55 97 06/10/17 07:31 Nasal Cannula 3.0 Intake and Output 06/09/17 06/09/17 06/10/17 15:00 23:00 07:00 Intake Total 812 ml 360 ml 320 ml Output Total 850 ml 200 ml Balance -38 ml 160 ml 320 ml Results/Medications Result Diagram: 06/09/17 0609 06/10/17 0615 Results 24 hrs Laboratory Tests Test 06/10/17 06:15 Prothrombin Time 30.0 H Prothrombin Time Ratio 2.3 INR International Normalized Ratio 2.81 Sodium Level 132 L Potassium Level 4.6 Chloride Level 92 L Carbon Dioxide Level 33 H Anion Gap 12 Blood Urea Nitrogen 26 H Creatinine 0.83 Glucose Level 72 Calcium Level 7.4 L Total Bilirubin 0.3 Direct Bilirubin 0.00 Indirect Bilirubin 0.3 Aspartate Amino Transf (AST/SGOT) 54 H Alanine Aminotransferase (ALT/SGPT) 50 Alkaline Phosphatase 110 Total Protein 5.0 L Albumin 1.9 L Globulin 3.10 Albumin/Globulin Ratio 0.61 Medications Current Medications Lubiprostone (Amitiza) 24 mcg BID PO Last administered on 06/10/17 08:45; Admin Dose 24 MCG; Start 06/08/17 at 22:49 Nitroglycerin (Nitroglycerin (Sl Tab) 0.4 Mg) 0.4 tab PRN SL ; Start 06/08/17 at 22:49 Pantoprazole (Protonix Tab) 40 mg DAILY@06 PO Last administered on 06/10/17 06 :17; Admin Dose 40 MG; Start 06/08/17 at 22:49 Acetaminophen (Tylenol Tab) 650 mg Q6H PRN PO PAIN AND OR ELEVATED TEMP; Start 06/08/17 at 22:49 Magnesium Oxide (Mag-Ox 400) 400 mg DAILY PO Last administered on 06/10/17 08: 45; Admin Dose 400 MG; Start 06/08/17 at 22:49 Lactobacillus Acidophilus/ Rhamnosus (Culturelle) 1 cap DAILY PO Last administered on 06/10/17 08:45; Admin Dose 1 CAP; Start 06/08/17 at 22:49 Atenolol (Tenormin) 25 mg BID PO Last administered on 06/09/17 21:30; Admin Dose 25 MG; Start 06/08/17 at 22:49 Polyethylene Glycol 8.5 gm 8.5 gm DAILY PO Last administered on 06/10/17 08:45 ; Admin Dose 8.5 GM; Start 06/08/17 at 22:49 Meropenem/Sodium Chloride (Merrem 1 Gm/50 ml (Pmx)) 50 ml @ 200 mls/hr Q12H IVPB Last administered on 06/09/17 22:30; Admin Dose 200 MLS/HR; Start at 22:49 Diltiazem HCl (Cardizem) 30 mg Q8 PO Last administered on 06/09/17 21:30; Admin Dose 30 MG; Start 06/08/17 at 22:49 Bisacodyl (Dulcolax Supp) 10 mg Q48H PRN [place] CONSTIPATION; Start 06/08/17 at 22: 49 Multivitamins Therapeutic (Theragran) 1 tab DAILY PO Last administered on 08:45; Admin Dose 1 TAB; Start 06/08/17 at 22:49 Folic Acid (Folic Acid) 1 mg DAILY PO Last administered on 06/10/17 08:45; Admin Dose 1 MG; Start 06/08/17 at 22:49 Furosemide (Lasix) 40 mg DAILY IV ; Start 06/08/17 at 22:49 Fluconazole (Diflucan) 150 mg DAILY PO Last administered on 06/10/17 08:45; Admin Dose 150 MG; Start 06/09/17 at 09:00 Atorvastatin Calcium (Lipitor) 10 mg DAILY@21 PO Last administered on 21:30; Admin Dose 10 MG; Start 06/09/17 at 21:00 Ergocalciferol (Drisdol) 50,000 unit Sa@09 PO ; Start 06/14/17 at 09:00 Warfarin Sodium (Coumadin) 3 mg DAILY@17 PO ; Start 06/10/17 at 17:00 Assessment/Plan Additional Assessment/Plan Rehabilitation -r infarct CVA with Left sided weakness Increase activities as tolerated Dysphagi-continue speech therapy afib, pacemaker Pleural effusion-s.p thoracentesis s.p. sepsis Left kidney hematoma-monitor kidney CAD stage 2 decub on sacrum-continue offloading and wound care ROBY RANGEL MD Jun 10, 2017 11:05
[2017-06-10] MEDS ORDERED: RACEPINEPHRINE 2.25%(NEB) 0.5 ML AMP HHN ONE (16:00)
--- NOTE | 2017-06-10 16:50 | CONS ---
Date/Time of Note Date/Time of Note DATE: 06/10/17 TIME: 16:46 Assessment/Plan Assessment/Plan Chief Complaint/Hosp Course IMP: 1.tachycardia-? S Tach/PAF-overall improved when receives BB/CCB regimen [facility] [place] device 2.Hypotension-recurrent/? overdiuresis 3.AF-currently reasonable rate control 4.Fevers/leukcytosis-increased significantly 5. TIA 6.UTI 7. coagulopathy-s/p Vitamin k and now again therapeutic 8. L sided rib pain-positive TTP/resolved-negative troponin 9. 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 Hypontremia-improved 14. Episode of AMS and RADIOLOGIST thought to be due to possible CVA-head CT negative. Currently stable 15. CHF-systolic acute on chronic LVEF 40% by echo this admit 16. Pleural effusion s/p L thoracentesis Recc: -Now transferred to rehab -Continue BB/CCB as tolerated which were held today -Continue abx's and f/u cx data -Continue Coumadin and f/u INR -Hold lasix and follow BP -CXR to asssess ongoing CHF/PNA Problems: Consultation Date/Type/Reason Admit Date/Time Jun 08, 2017 at 21:30 Initial Consult Date 06/08/2017 Type of Consultation: cardiology Reason for Consultation AF Referring Provider: DUANE NGUYỄN MD Exam/Review of Systems Vital Signs Vitals Vital Signs Date Time Temp Pulse Resp B/P Pulse Ox O2 Delivery O2 Flow Rate FiO2 06/10/17 14:00 98.3 75 18 133/58 97 06/10/17 13:35 3.0 06/10/17 13:35 Nasal Cannula Intake and Output 06/09/17 06/09/17 06/10/17 15:00 23:00 07:00 Intake Total 812 ml 360 ml 320 ml Output Total 850 ml 200 ml Balance -38 ml 160 ml 320 ml Exam Review of Systems: CONSTITUTIONAL: No fevers, chills. PULMONARY: No sob CARDIOVASCULAR: No chest pain/palpitations GASTROINTESTINAL: No nausea/vomiting. GENITOURINARY: No hematuria/dysuria. MUSCULOSKELETAL: No myagias/arthalgias. PSYCHIATRIC: The patient denies depression. NEUROLOGIC: lethargic Constitutional: alert Psych: no complaints Head: normocephalic ENMT: mucosa pink and moist Neck: jvd (9 cm water), supple Respiratory: diminished breath sounds (at bases/B) Cardiovascular: irregular rhythm Gastrointestinal: non-tender, soft Musculoskeletal: muscle tone Extremities: edema (none) Neurological: lethargic Results Result Diagram: 06/09/17 0609 06/10/17 0615 Results 24 hrs Laboratory Tests Test 06/10/17 06:15 Prothrombin Time 30.0 H Prothrombin Time Ratio 2.3 INR International Normalized Ratio 2.81 Sodium Level 132 L Potassium Level 4.6 Chloride Level 92 L Carbon Dioxide Level 33 H Anion Gap 12 Blood Urea Nitrogen 26 H Creatinine 0.83 Glucose Level 72 Calcium Level 7.4 L Total Bilirubin 0.3 Direct Bilirubin 0.00 Indirect Bilirubin 0.3 Aspartate Amino Transf (AST/SGOT) 54 H Alanine Aminotransferase (ALT/SGPT) 50 Alkaline Phosphatase 110 Total Protein 5.0 L Albumin 1.9 L Globulin 3.10 Albumin/Globulin Ratio 0.61 Medications Medications Current Medications Lubiprostone (Amitiza) 24 mcg BID PO Last administered on 06/10/17 08:45; Admin Dose 24 MCG; Start 06/08/17 at 22:49 Nitroglycerin (Nitroglycerin (Sl Tab) 0.4 Mg) 0.4 tab PRN SL ; Start 06/08/17 at 22:49 Pantoprazole (Protonix Tab) 40 mg DAILY@06 PO Last administered on 06/10/17 06 :17; Admin Dose 40 MG; Start 06/08/17 at 22:49 Acetaminophen (Tylenol Tab) 650 mg Q6H PRN PO PAIN AND OR ELEVATED TEMP; Start 06/08/17 at 22:49 Magnesium Oxide (Mag-Ox 400) 400 mg DAILY PO Last administered on 06/10/17 08: 45; Admin Dose 400 MG; Start 06/08/17 at 22:49 Lactobacillus Acidophilus/ Rhamnosus (Culturelle) 1 cap DAILY PO Last administered on 06/10/17 08:45; Admin Dose 1 CAP; Start 06/08/17 at 22:49 Atenolol (Tenormin) 25 mg BID PO Last administered on 06/09/17 21:30; Admin Dose 25 MG; Start 06/08/17 at 22:49 Polyethylene Glycol 8.5 gm 8.5 gm DAILY PO Last administered on 06/10/17 08:45 ; Admin Dose 8.5 GM; Start 06/08/17 at 22:49 Meropenem/Sodium Chloride (Merrem 1 Gm/50 ml (Pmx)) 50 ml @ 200 mls/hr Q12H IVPB Last administered on 06/10/17 11:05; Admin Dose 200 MLS/HR; Start at 22:49 Diltiazem HCl (Cardizem) 30 mg Q8 PO Last administered on 06/09/17 21:30; Admin Dose 30 MG; Start 06/08/17 at 22:49 Bisacodyl (Dulcolax Supp) 10 mg Q48H PRN [place] CONSTIPATION; Start 06/08/17 at 22: 49 Multivitamins Therapeutic (Theragran) 1 tab DAILY PO Last administered on 08:45; Admin Dose 1 TAB; Start 06/08/17 at 22:49 Folic Acid (Folic Acid) 1 mg DAILY PO Last administered on 06/10/17 08:45; Admin Dose 1 MG; Start 06/08/17 at 22:49 Furosemide (Lasix) 40 mg DAILY IV ; Start 06/08/17 at 22:49 Fluconazole (Diflucan) 150 mg DAILY PO Last administered on 06/10/17 08:45; Admin Dose 150 MG; Start 06/09/17 at 09:00 Atorvastatin Calcium (Lipitor) 10 mg DAILY@21 PO Last administered on 21:30; Admin Dose 10 MG; Start 06/09/17 at 21:00 Ergocalciferol (Drisdol) 50,000 unit Sa@09 PO ; Start 06/14/17 at 09:00 Warfarin Sodium (Coumadin) 3 mg DAILY@17 PO ; Start 06/10/17 at 17:00 PLACIDO COREA Jun 10, 2017 16:50
[2017-06-10] MEDS ORDERED: WARFARIN 3 MG TAB PO SCH ×2 (17:00)
--- NOTE | 2017-06-10 17:51 | RADRPT ---
PROCEDURE: XR Chest. CLINICAL INDICATION: Shortness of breath. TECHNIQUE: Single frontal view. COMPARISON: 06/07/2017 FINDINGS: There is mild right basilar atelectasis and moderate left basilar atelectasis or pneumonia, unchange d. The lungs are otherwise clear. The heart is enlarged. 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 Sternal wires and mi tral valve replacement are noted. There is calcification in the aorta consistent with atherosclerosi s. There is a small right pleural effusion and small left pleural effusion, unchanged. There is no pneumothorax. IMPRESSION: 1. No change from 06/07/2017. RPTAT: QQ .Isiah Lamar MD, MD Date Time Electronically viewed and signed by .Isiah Lamar MD, MD on 06/10/2017 17:51 .R/
--- NOTE | 2017-06-10 17:52 | CONS ---
Date/Time of Note Date/Time of Note DATE: 06/10/17 TIME: 17:39 Assessment/Plan Assessment/Plan Chief Complaint/Hosp Course ID PROGRESS NOTE 24H INTERVAL SUMMARY Chief Complaint/Hosp Course * Transferred to acute rehab from [facility] -- condition continues to improve * No fevers, VSS, NAD, no complaints offered, pt had transient hypotension ? due to diuretics? * Antibiotics: Fluconazole meropenem * Microbiology: Pleural fluid cultures remain negative PHYSICAL EXAMINATION: GENERAL: VSS, NAD, no fever HEENT: Unremarkable NECK: Trach midline CHEST: Equal chest rise bilaterally, without dyspnea on observation HEART: Pulse RRR ABDOMEN: Soft, left flank pain EXTREMITIES: Warm SKIN: Warm, dry, mild dependent edema x4 ID ASSESSMENT: 76 yo F admitted with: 1. s/p acute sepsis versus systemic inflammatory response syndrome with persistent leukocytosis secondary to #2 * Recurrent hypotension => DDx diuretic induced? 2. Left kidney hematoma * Per note: patient has perinephric hematoma/bleeding while on Coumadin. 3. Resolving pneumonia with exudative left pleural effusion, status post thoracentesis 06/04/17 4. Coronary artery disease with a history of mitral valve mechanical prosthesis and ejection fraction of 40% 5. Cardiac arrhythmia=> S Tach/PAF-overall improved when receives BB/CCB regimen [facility] [place] deviceHistory of permanent pacemaker 6. Chronic pancreatitis with dilated pancreatic duct and multiple small cysts. 7. s/p Acute TIA per admission notes @ [facility] 8. s/p Bacteremia with blood culture on admission grew Bacillus species consistent with contaminant 9. 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 s/p Nina albicans UTI (-)MRSA Nares ABX ALLERGY: PCN CURRENT ABX: DAY # 13 => MERREM + Diflucan s/p Vanco IV -> DC'd 06/08 s/p Ertapenem 05/28-05/29 ID RECOMMENDATIONS Plan: Continue Merrem + DIflucan, follow recommendations of consultants. . Problems: Consultation Date/Type/Reason Admit Date/Time Jun 08, 2017 at 21:30 Initial Consult Date Type of Consultation: ID Referring Provider: DUANE NGUYỄN MD Exam/Review of Systems Vital Signs Vitals Vital Signs Date Time Temp Pulse Resp B/P Pulse Ox O2 Delivery O2 Flow Rate FiO2 06/10/17 17:06 75 20 97 Nasal Cannula 3.0 06/10/17 14:00 98.3 133/58 Intake and Output 06/09/17 06/09/17 06/10/17 15:00 23:00 07:00 Intake Total 812 ml 360 ml 320 ml Output Total 850 ml 200 ml Balance -38 ml 160 ml 320 ml Results Result Diagram: 06/09/17 0609 06/10/17 0615 Results 24 hrs Laboratory Tests Test 06/10/17 06:15 Prothrombin Time 30.0 H Prothrombin Time Ratio 2.3 INR International Normalized Ratio 2.81 Sodium Level 132 L Potassium Level 4.6 Chloride Level 92 L Carbon Dioxide Level 33 H Anion Gap 12 Blood Urea Nitrogen 26 H Creatinine 0.83 Glucose Level 72 Calcium Level 7.4 L Total Bilirubin 0.3 Direct Bilirubin 0.00 Indirect Bilirubin 0.3 Aspartate Amino Transf (AST/SGOT) 54 H Alanine Aminotransferase (ALT/SGPT) 50 Alkaline Phosphatase 110 Total Protein 5.0 L Albumin 1.9 L Globulin 3.10 Albumin/Globulin Ratio 0.61 Medications Medications Current Medications Lubiprostone (Amitiza) 24 mcg BID PO Last administered on 06/10/17 08:45; Admin Dose 24 MCG; Start 06/08/17 at 22:49 Nitroglycerin (Nitroglycerin (Sl Tab) 0.4 Mg) 0.4 tab PRN SL ; Start 06/08/17 at 22:49 Pantoprazole (Protonix Tab) 40 mg DAILY@06 PO Last administered on 06/10/17 06 :17; Admin Dose 40 MG; Start 06/08/17 at 22:49 Acetaminophen (Tylenol Tab) 650 mg Q6H PRN PO PAIN AND OR ELEVATED TEMP; Start 06/08/17 at 22:49 Magnesium Oxide (Mag-Ox 400) 400 mg DAILY PO Last administered on 06/10/17 08: 45; Admin Dose 400 MG; Start 06/08/17 at 22:49 Lactobacillus Acidophilus/ Rhamnosus (Culturelle) 1 cap DAILY PO Last administered on 06/10/17 08:45; Admin Dose 1 CAP; Start 06/08/17 at 22:49 Atenolol (Tenormin) 25 mg BID PO Last administered on 06/09/17 21:30; Admin Dose 25 MG; Start 06/08/17 at 22:49 Polyethylene Glycol 8.5 gm 8.5 gm DAILY PO Last administered on 06/10/17 08:45 ; Admin Dose 8.5 GM; Start 06/08/17 at 22:49 Meropenem/Sodium Chloride (Merrem 1 Gm/50 ml (Pmx)) 50 ml @ 200 mls/hr Q12H IVPB Last administered on 06/10/17 11:05; Admin Dose 200 MLS/HR; Start at 22:49 Diltiazem HCl (Cardizem) 30 mg Q8 PO Last administered on 06/09/17 21:30; Admin Dose 30 MG; Start 06/08/17 at 22:49 Bisacodyl (Dulcolax Supp) 10 mg Q48H PRN [place] CONSTIPATION; Start 06/08/17 at 22: 49 Multivitamins Therapeutic (Theragran) 1 tab DAILY PO Last administered on 08:45; Admin Dose 1 TAB; Start 06/08/17 at 22:49 Folic Acid (Folic Acid) 1 mg DAILY PO Last administered on 06/10/17 08:45; Admin Dose 1 MG; Start 06/08/17 at 22:49 Furosemide (Lasix) 40 mg DAILY IV ; Start 06/08/17 at 22:49; Status Future Hold Fluconazole (Diflucan) 150 mg DAILY PO Last administered on 06/10/17 08:45; Admin Dose 150 MG; Start 06/09/17 at 09:00 Atorvastatin Calcium (Lipitor) 10 mg DAILY@21 PO Last administered on 21:30; Admin Dose 10 MG; Start 06/09/17 at 21:00 Ergocalciferol (Drisdol) 50,000 unit Sa@09 PO ; Start 06/14/17 at 09:00 Warfarin Sodium (Coumadin) 3 mg DAILY@17 PO Last administered on 06/10/17 17: 34; Admin Dose 3 MG; Start 06/10/17 at 17:00 CLAY GRIDER NP Jun 10, 2017 17:49
--- NOTE | 2017-06-10 18:11 | PN ---
Date/Time of Note Date/Time of Note DATE: 06/10/17 TIME: 18:08 Assessment/Plan VTE Prophylaxis VTE Prophylaxis Intervention: other Lines/Catheters IV Catheter Type (from Nrs): Saline Lock Urinary Cath still in place: No Assessment/Plan Chief Complaint/Hosp Course 1. SEPSIS resolving 2. AFIB, controlled 3. HTN, controlled 4. ASHD 5. hyponatremia 6. recurrent UTI 7. LOW EF 8. low platelets HX 9. Anemia 10. urinary incontinence 11. Constipation 12. Vit d deficiency 13. Muscle weakness PLAN PT OT Problems: Subjective 24 Hr Interval Summary Subjective hx not possible: other (THROAT PAIN +) Respiratory: no complaints, shortness of breath (BETTER) Cardiovascular: no complaints Genitourinary: no complaints Musculoskeletal: no complaints Exam/Review of Systems Vital Signs Vitals Vital Signs Date Time Temp Pulse Resp B/P Pulse Ox O2 Delivery O2 Flow Rate FiO2 06/10/17 17:06 75 20 97 Nasal Cannula 3.0 06/10/17 14:00 98.3 133/58 Intake and Output 06/09/17 06/09/17 06/10/17 15:00 23:00 07:00 Intake Total 812 ml 360 ml 320 ml Output Total 850 ml 200 ml Balance -38 ml 160 ml 320 ml Exam Respiratory: clear to auscultation Cardiovascular: regular rate and rhythm Gastrointestinal: soft Genitourinary - Female: nl adnexae Musculoskeletal: nl extremities to inspection Results Result Diagram: 06/09/17 0609 06/10/17 0615 Results 24 hrs Laboratory Tests Test 06/10/17 06:15 Prothrombin Time 30.0 H Prothrombin Time Ratio 2.3 INR International Normalized Ratio 2.81 Sodium Level 132 L Potassium Level 4.6 Chloride Level 92 L Carbon Dioxide Level 33 H Anion Gap 12 Blood Urea Nitrogen 26 H Creatinine 0.83 Glucose Level 72 Calcium Level 7.4 L Total Bilirubin 0.3 Direct Bilirubin 0.00 Indirect Bilirubin 0.3 Aspartate Amino Transf (AST/SGOT) 54 H Alanine Aminotransferase (ALT/SGPT) 50 Alkaline Phosphatase 110 Total Protein 5.0 L Albumin 1.9 L Globulin 3.10 Albumin/Globulin Ratio 0.61 Medications Medications Current Medications Lubiprostone (Amitiza) 24 mcg BID PO Last administered on 06/10/17t 08:45; Admin Dose 24 MCG; Start 06/08/17 at 22:49 Nitroglycerin (Nitroglycerin (Sl Tab) 0.4 Mg) 0.4 tab PRN SL ; Start 06/08/17 at 22:49 Pantoprazole (Protonix Tab) 40 mg DAILY@06 PO Last administered on 06/10/17 06 :17; Admin Dose 40 MG; Start 06/08/17 at 22:49 Acetaminophen (Tylenol Tab) 650 mg Q6H PRN PO PAIN AND OR ELEVATED TEMP; Start 06/08/17 at 22:49 Magnesium Oxide (Mag-Ox 400) 400 mg DAILY PO Last administered on 06/10/17 08: 45; Admin Dose 400 MG; Start 06/08/17 at 22:49 Lactobacillus Acidophilus/ Rhamnosus (Culturelle) 1 cap DAILY PO Last administered on 06/10/17 08:45; Admin Dose 1 CAP; Start 06/08/17 at 22:49 Atenolol (Tenormin) 25 mg BID PO Last administered on 06/09/17 21:30; Admin Dose 25 MG; Start 06/08/17 at 22:49 Polyethylene Glycol 8.5 gm 8.5 gm DAILY PO Last administered on 06/10/17 08:45 ; Admin Dose 8.5 GM; Start 06/08/17 at 22:49 Meropenem/Sodium Chloride (Merrem 1 Gm/50 ml (Pmx)) 50 ml @ 200 mls/hr Q12H IVPB Last administered on 06/10/17 11:05; Admin Dose 200 MLS/HR; Start at 22:49 Diltiazem HCl (Cardizem) 30 mg Q8 PO Last administered on 06/09/17 21:30; Admin Dose 30 MG; Start 06/08/17 at 22:49 Bisacodyl (Dulcolax Supp) 10 mg Q48H PRN [place] CONSTIPATION; Start 06/08/17 at 22: 49 Multivitamins Therapeutic (Theragran) 1 tab DAILY PO Last administered on 08:45; Admin Dose 1 TAB; Start 06/08/17 at 22:49 Folic Acid (Folic Acid) 1 mg DAILY PO Last administered on 06/10/17 08:45; Admin Dose 1 MG; Start 06/08/17 at 22:49 Furosemide (Lasix) 40 mg DAILY IV ; Start 06/08/17 at 22:49; Status Future Hold Fluconazole (Diflucan) 150 mg DAILY PO Last administered on 06/10/17 08:45; Admin Dose 150 MG; Start 06/09/17 at 09:00 Atorvastatin Calcium (Lipitor) 10 mg DAILY@21 PO Last administered on 21:30; Admin Dose 10 MG; Start 06/09/17 at 21:00 Ergocalciferol (Drisdol) 50,000 unit Sa@09 PO ; Start 06/14/17 at 09:00 Warfarin Sodium (Coumadin) 3 mg DAILY@17 PO Last administered on 06/10/17 17: 34; Admin Dose 3 MG; Start 06/10/17 at 17:00 DUANE NGUYỄN MD Jun 10, 2017 18:11
[2017-06-10] MEDS: ATORVASTATIN 10 MG TAB PO SCH (20:17)
[2017-06-10] MEDS: ACETAMINOPHEN 325 MG TAB PO PRN (20:18)
[2017-06-11] MEDS: LEVALBUTEROL (NEB) 0.63 MG/3 ML AMP HHN SCH ×4 (02:00→20:00)
[2017-06-11] MEDS: LEVOTHYROXINE 75 MCG TAB PO SCH (06:13)
[2017-06-11] MEDS: PANTOPRAZOLE (EC) 40 MG TAB PO SCH (06:13)
[2017-06-11] MEDS: DILTIAZEM 30 MG TAB PO SCH ×3 (06:14→22:09)
[2017-06-11 07:02] LABS: INR 3.04; PROTIME 31.9 Sec (12.2-14.2); PT RATIO 2.5
[2017-06-11 08:00] VITALS: BP 104/51; PULSE 75; RESP 19
[2017-06-11] MEDS: FLUCONAZOLE 150 MG TAB PO SCH (08:40)
[2017-06-11] MEDS: LACTOBACILLUS RHAMNOSUS CAP PO SCH (08:41)
[2017-06-11] MEDS: FOLIC ACID 1 MG TAB PO SCH (08:41)
[2017-06-11] MEDS: GUAIFENESIN LA 600 MG TABSR PO SCH ×2 (08:41→20:21)
[2017-06-11] MEDS: MULTIVITAMINS THERAPEUTIC TAB PO SCH (08:41)
[2017-06-11] MEDS: LUBIPROSTONE 24 MCG CAP PO SCH ×2 (08:41→20:18)
[2017-06-11] MEDS: MAGNESIUM OXIDE 400 MG TAB PO SCH (08:41)
[2017-06-11] MEDS: POLYETHYLENE GLYCOL 17 GM PACKET PO SCH (08:42)
[2017-06-11] MEDS: ATENOLOL 25 MG TAB PO SCH ×2 (08:42→20:22)
[2017-06-11] MEDS: MEROPENEM 1 GM/50ML(PMX) 50 ML IVPB SCH ×2 (10:00→22:17)
--- NOTE | 2017-06-11 10:57 | CONS ---
Date/Time of Note Date/Time of Note DATE: 06/11/17 TIME: 10:53 Consult Date/Type/Reason Admit Date/Time Jun 08, 2017 at 21:30 Type of Consultation: ID Ordering Provider: DUANE NGUYỄN MD Subjective No new complaints Objective Lungs clear anteriorly Max assist ambulation few steps Vital Signs Date Time Temp Pulse Resp B/P Pulse Ox O2 Delivery O2 Flow Rate FiO2 06/10/17 20:00 Nasal Cannula 2.0 06/10/17 19:52 76 18 96 06/10/17 19:45 Intake and Output 06/10/17 06/10/17 06/11/17 15:00 23:00 07:00 Intake Total 710 ml 830 ml 350 ml Output Total 850 ml 180 ml Balance -140 ml 650 ml 350 ml Results/Medications Result Diagram: 06/09/17 0609 06/10/17 0615 Results 24 hrs Laboratory Tests Test 06/11/17 06:02 Prothrombin Time 31.9 H Prothrombin Time Ratio 2.5 INR International Normalized Ratio 3.04 Medications Current Medications Lubiprostone (Amitiza) 24 mcg BID PO Last administered on 06/11/17 08:41; Admin Dose 24 MCG; Start 06/08/17 at 22:49 Nitroglycerin (Nitroglycerin (Sl Tab) 0.4 Mg) 0.4 tab PRN SL ; Start 06/08/17 at 22:49 Pantoprazole (Protonix Tab) 40 mg DAILY@06 PO Last administered on 06/11/17 06 :13; Admin Dose 40 MG; Start 06/08/17 at 22:49 Acetaminophen (Tylenol Tab) 650 mg Q6H PRN PO PAIN AND OR ELEVATED TEMP Last administered on 06/10/17 20:18; Admin Dose 650 MG; Start 06/08/17 at 22:49 Magnesium Oxide (Mag-Ox 400) 400 mg DAILY PO Last administered on 06/11/17 08: 41; Admin Dose 400 MG; Start 06/08/17 at 22:49 Lactobacillus Acidophilus/ Rhamnosus (Culturelle) 1 cap DAILY PO Last administered on 06/11/17 08:41; Admin Dose 1 CAP; Start 06/08/17 at 22:49 Atenolol (Tenormin) 25 mg BID PO Last administered on 06/10/17 20:17; Admin Dose 25 MG; Start 06/08/17 at 22:49 Polyethylene Glycol 8.5 gm 8.5 gm DAILY PO Last administered on 06/10/17 08:45 ; Admin Dose 8.5 GM; Start 06/08/17 at 22:49 Meropenem/Sodium Chloride (Merrem 1 Gm/50 ml (Pmx)) 50 ml @ 200 mls/hr Q12H IVPB Last administered on 06/11/17 10:00; Admin Dose 200 MLS/HR; Start at 22:49 Diltiazem HCl (Cardizem) 30 mg Q8 PO Last administered on 06/11/17 06:14; Admin Dose 30 MG; Start 06/08/17 at 22:49 Bisacodyl (Dulcolax Supp) 10 mg Q48H PRN [place] CONSTIPATION Last administered on 21:31; Admin Dose 10 MG; Start 06/08/17 at 22:49 Multivitamins Therapeutic (Theragran) 1 tab DAILY PO Last administered on 08:41; Admin Dose 1 TAB; Start 06/08/17 at 22:49 Folic Acid (Folic Acid) 1 mg DAILY PO Last administered on 06/11/17 08:41; Admin Dose 1 MG; Start 06/08/17 at 22:49 Furosemide (Lasix) 40 mg DAILY IV ; Start 06/08/17 at 22:49; Status Future Hold Fluconazole (Diflucan) 150 mg DAILY PO Last administered on 06/11/17 08:40; Admin Dose 150 MG; Start 06/09/17 at 09:00 Atorvastatin Calcium (Lipitor) 10 mg DAILY@21 PO Last administered on 20:17; Admin Dose 10 MG; Start 06/09/17 at 21:00 Ergocalciferol (Drisdol) 50,000 unit Sa@09 PO ; Start 06/14/17 at 09:00 Warfarin Sodium (Coumadin) 3 mg DAILY@17 PO Last administered on 06/10/17 17: 34; Admin Dose 3 MG; Start 06/10/17 at 17:00; Status Future hold Guaifenesin (Mucinex) 600 mg BID PO Last administered on 06/11/17 08:41; Admin Dose 600 MG; Start 06/11/17 at 09:00; Stop 06/15/17 at 21:59 Assessment/Plan Additional Assessment/Plan Rehabilitation -r infarct CVA with Left sided weakness Continue rehab activities as tolerated Dysphagia-continue speech therapy; videofluoro scheduled for today BP- monitor for orthostatic hypotension afib, pacemaker Pleural effusion-s.p thoracentesis s.p. sepsis Left kidney hematoma-monitor kidney CAD stage 2 decub on sacrum-continue offloading and wound care ROBY RANGEL MD Jun 11, 2017 10:57
[2017-06-11 20:13] VITALS: BP 97/58; PULSE 65; RESP 17
[2017-06-11] MEDS: ATORVASTATIN 10 MG TAB PO SCH (20:18)
[2017-06-11] MEDS: ACETAMINOPHEN 325 MG TAB PO PRN (20:59)
[2017-06-11] MEDS ORDERED: PHENOL 1.4% SOLN 180 ML BTL MT PRN (21:00)
--- NOTE | 2017-06-11 21:08 | CONS ---
Date/Time of Note Date/Time of Note DATE: 06/11/17 TIME: 21:04 Assessment/Plan Assessment/Plan Chief Complaint/Hosp Course IMP: 1.tachycardia-? S Tach/PAF-overall improved when receives BB/CCB regimen [facility] [place] device 2.Hypotension-recurrent/? overdiuresis 3.AF-currently reasonable rate control 4.Fevers/leukcytosis-increased significantly 5. TIA 6.UTI 7. coagulopathy-s/p Vitamin k and now again therapeutic 8. L sided rib pain-positive TTP/resolved-negative troponin 9. 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 MVR 14. Episode of AMS and [employer] thought to be due to possible CVA-head CT negative. Currently stable 15. CHF-systolic acute on chronic LVEF 40% by echo this admit 16. Pleural effusion s/p L thoracentesis Recc: -Now transferred to rehab -Continue BB/CCB as tolerated which have still been intermittently held due to low BP -Continue abx's and f/u cx data -Continue Coumadin and f/u INR -Hold lasix and follow BP -PT/OT as tolerated Problems: Consultation Date/Type/Reason Admit Date/Time Jun 08, 2017 at 21:30 Initial Consult Date 06/08/2017 Type of Consultation: cardiology Reason for Consultation af/chf Referring Provider: DUANE NGUYỄN MD Exam/Review of Systems Vital Signs Vitals Vital Signs Date Time Temp Pulse Resp B/P Pulse Ox O2 Delivery O2 Flow Rate FiO2 06/11/17 20:13 98.1 65 17 97/58 96 Nasal Cannula 2.0 Intake and Output 06/10/17 06/10/17 06/11/17 15:00 23:00 07:00 Intake Total 710 ml 830 ml 350 ml Output Total 850 ml 180 ml Balance -140 ml 650 ml 350 ml Exam Review of Systems: CONSTITUTIONAL: No fevers, chills. PULMONARY: No sob CARDIOVASCULAR: No chest pain/palpitations GASTROINTESTINAL: No nausea/vomiting. GENITOURINARY: No hematuria/dysuria. MUSCULOSKELETAL: No myagias/arthalgias. PSYCHIATRIC: The patient denies depression. NEUROLOGIC: No weakness Constitutional: alert, oriented Psych: no complaints Head: normocephalic ENMT: mucosa pink and moist Neck: jvd (9 cm water), supple Respiratory: diminished breath sounds Cardiovascular: irregular rhythm Gastrointestinal: non-tender, soft Musculoskeletal: muscle tone (normal) Extremities: edema (none) Neurological: other (No focal deficits) Results Result Diagram: 06/09/17 0609 06/10/17 0615 Results 24 hrs Laboratory Tests Test 06/11/17 06:02 Prothrombin Time 31.9 H Prothrombin Time Ratio 2.5 INR International Normalized Ratio 3.04 Medications Medications Current Medications Lubiprostone (Amitiza) 24 mcg BID PO Last administered on 06/11/17 20:18; Admin Dose 24 MCG; Start 06/08/17 at 22:49 Nitroglycerin (Nitroglycerin (Sl Tab) 0.4 Mg) 0.4 tab PRN SL ; Start 06/08/17 at 22:49 Pantoprazole (Protonix Tab) 40 mg DAILY@06 PO Last administered on 06/11/17 06 :13; Admin Dose 40 MG; Start 06/08/17 at 22:49 Acetaminophen (Tylenol Tab) 650 mg Q6H PRN PO PAIN AND OR ELEVATED TEMP Last administered on 06/10/17 20:18; Admin Dose 650 MG; Start 06/08/17 at 22:49 Magnesium Oxide (Mag-Ox 400) 400 mg DAILY PO Last administered on 06/11/17 08: 41; Admin Dose 400 MG; Start 06/08/17 at 22:49 Lactobacillus Acidophilus/ Rhamnosus (Culturelle) 1 cap DAILY PO Last administered on 06/11/17 08:41; Admin Dose 1 CAP; Start 06/08/17 at 22:49 Atenolol (Tenormin) 25 mg BID PO Last administered on 06/10/17 20:17; Admin Dose 25 MG; Start 06/08/17 at 22:49 Polyethylene Glycol 8.5 gm 8.5 gm DAILY PO Last administered on 06/10/17 08:45 ; Admin Dose 8.5 GM; Start 06/08/17 at 22:49 Meropenem/Sodium Chloride (Merrem 1 Gm/50 ml (Pmx)) 50 ml @ 200 mls/hr Q12H IVPB Last administered on 06/11/17 10:00; Admin Dose 200 MLS/HR; Start at 22:49 Diltiazem HCl (Cardizem) 30 mg Q8 PO Last administered on 06/11/17 13:41; Admin Dose 30 MG; Start 06/08/17 at 22:49 Bisacodyl (Dulcolax Supp) 10 mg Q48H PRN [place] CONSTIPATION Last administered on 21:31; Admin Dose 10 MG; Start 06/08/17 at 22:49 Multivitamins Therapeutic (Theragran) 1 tab DAILY PO Last administered on 08:41; Admin Dose 1 TAB; Start 06/08/17 at 22:49 Folic Acid (Folic Acid) 1 mg DAILY PO Last administered on 06/11/17 08:41; Admin Dose 1 MG; Start 06/08/17 at 22:49 Furosemide (Lasix) 40 mg DAILY IV ; Start 06/08/17 at 22:49; Status Future Hold Fluconazole (Diflucan) 150 mg DAILY PO Last administered on 06/11/17 08:40; Admin Dose 150 MG; Start 06/09/17 at 09:00 Atorvastatin Calcium (Lipitor) 10 mg DAILY@21 PO Last administered on 20:18; Admin Dose 10 MG; Start 06/09/17 at 21:00 Ergocalciferol (Drisdol) 50,000 unit Sa@09 PO ; Start 06/14/17 at 09:00 Warfarin Sodium (Coumadin) 3 mg DAILY@17 PO Last administered on 06/10/17 17: 34; Admin Dose 3 MG; Start 06/10/17 at 17:00 Guaifenesin (Mucinex) 600 mg BID PO Last administered on 06/11/17 20:21; Admin Dose 600 MG; Start 06/11/17 at 09:00; Stop 06/15/17 at 21:59 Phenol (Chloraseptic Throat [place]) 2 spray Q4H PRN [place] SORE THROAT; Start at 21:00 PLACIDO COREA Jun 11, 2017 21:08
[2017-06-11] MEDS ORDERED: SOD CHLORIDE 0.9% 250 ML IV ONE (21:30)
--- NOTE | 2017-06-11 22:30 | PN ---
Date/Time of Note Date/Time of Note DATE: 06/11/17 TIME: 22:28 Assessment/Plan VTE Prophylaxis VTE Prophylaxis Intervention: other Lines/Catheters IV [facility]from [facility] [place] Urinary Cath still in place: No Assessment/Plan Chief Complaint/Hosp Course 1. SEPSIS resolving 2. AFIB, controlled 3. HTN, controlled 4. ASHD 5. hyponatremia 6. recurrent UTI 7. LOW EF 8. low platelets HX 9. Anemia 10. urinary incontinence 11. Constipation 12. Vit d deficiency 13. Muscle weakness 14 EDEMA PLAN PT OT LASIX Problems: Subjective 24 Hr Interval Summary Subjective hx not possible: other (WEAKNESS) Respiratory: shortness of breath (+) Gastrointestinal: no complaints Genitourinary: no complaints Exam/Review of Systems Vital Signs Vitals Vital Signs Date Time Temp Pulse Resp B/P Pulse Ox O2 Delivery O2 Flow Rate FiO2 06/11/17 21:27 84 22 97 Nasal Cannula 2.0 06/11/17 20:13 98.1 97/58 Intake and Output 06/10/17 06/10/17 06/11/17 15:00 23:00 07:00 Intake Total 710 ml 830 ml 350 ml Output Total 850 ml 180 ml Balance -140 ml 650 ml 350 ml Exam Respiratory: diminished breath sounds Cardiovascular: regular rate and rhythm Gastrointestinal: soft Musculoskeletal: nl extremities to inspection Extremities: normal pulses Results Result Diagram: 06/09/17 0609 06/10/17 0615 Results 24 hrs Laboratory Tests Test 06/11/17 06:02 Prothrombin Time 31.9 H Prothrombin Time Ratio 2.5 INR International Normalized Ratio 3.04 Medications Medications Current Medications Lubiprostone (Amitiza) 24 mcg BID PO Last administered on 06/11/17 20:18; Admin Dose 24 MCG; Start 06/08/17 at 22:49 Nitroglycerin (Nitroglycerin (Sl Tab) 0.4 Mg) 0.4 tab PRN SL ; Start 06/08/17 at 22:49 Pantoprazole (Protonix Tab) 40 mg DAILY@06 PO Last administered on 06/11/17 06 :13; Admin Dose 40 MG; Start 06/08/17 at 22:49 Acetaminophen (Tylenol Tab) 650 mg Q6H PRN PO PAIN AND OR ELEVATED TEMP Last administered on 06/11/17 20:59; Admin Dose 650 MG; Start 06/08/17 at 22:49 Magnesium Oxide (Mag-Ox 400) 400 mg DAILY PO Last administered on 06/11/17 08: 41; Admin Dose 400 MG; Start 06/08/17 at 22:49 Lactobacillus Acidophilus/ Rhamnosus (Culturelle) 1 cap DAILY PO Last administered on 06/11/17 08:41; Admin Dose 1 CAP; Start 06/08/17 at 22:49 Atenolol (Tenormin) 25 mg BID PO Last administered on 06/10/17 20:17; Admin Dose 25 MG; Start 06/08/17 at 22:49 Polyethylene Glycol 8.5 gm 8.5 gm DAILY PO Last administered on 06/10/17 08:45 ; Admin Dose 8.5 GM; Start 06/08/17 at 22:49 Meropenem/Sodium Chloride (Merrem 1 Gm/50 ml (Pmx)) 50 ml @ 200 mls/hr Q12H IVPB Last administered on 06/11/17 22:17; Admin Dose 200 MLS/HR; Start at 22:49 Diltiazem HCl (Cardizem) 30 mg Q8 PO Last administered on 06/11/17 22:09; Admin Dose 30 MG; Start 06/08/17 at 22:49 Bisacodyl (Dulcolax Supp) 10 mg Q48H PRN [place] CONSTIPATION Last administered on 21:31; Admin Dose 10 MG; Start 06/08/17 at 22:49 Multivitamins Therapeutic (Theragran) 1 tab DAILY PO Last administered on 08:41; Admin Dose 1 TAB; Start 06/08/17 at 22:49 Folic Acid (Folic Acid) 1 mg DAILY PO Last administered on 06/11/17 08:41; Admin Dose 1 MG; Start 06/08/17 at 22:49 Furosemide (Lasix) 40 mg DAILY IV ; Start 06/08/17 at 22:49; Status Future Hold Fluconazole (Diflucan) 150 mg DAILY PO Last administered on 06/11/17 08:40; Admin Dose 150 MG; Start 06/09/17 at 09:00 Atorvastatin Calcium (Lipitor) 10 mg DAILY@21 PO Last administered on 20:18; Admin Dose 10 MG; Start 06/09/17 at 21:00 Ergocalciferol (Drisdol) 50,000 unit Sa@09 PO ; Start 06/14/17 at 09:00 Warfarin Sodium (Coumadin) 3 mg DAILY@17 PO Last administered on 06/10/17 17: 34; Admin Dose 3 MG; Start 06/10/17 at 17:00 Guaifenesin (Mucinex) 600 mg BID PO Last administered on 06/11/17 20:21; Admin Dose 600 MG; Start 06/11/17 at 09:00; Stop 06/15/17 at 21:59 Phenol 2 spray 2 spray Q4H PRN [place] SORE THROAT Last administered on 06/11/17 22 :03; Admin Dose 2 SPRAY; Start 06/11/17 at 21:00 Sodium Chloride (NS) 250 ml @ 250 mls/hr Q1H ONCE IV Last administered on 06/11 21:17; Admin Dose 250 MLS/HR; Start 06/11/17 at 21:30; Stop 06/11/17 at 22 :29 DUANE NGUYỄN MD Jun 11, 2017 22:29
[2017-06-12] VITALS (7 sets, daily range): BP systolic 109–121; BP diastolic 53–83; PULSE 68–75; RESP 18–20
[2017-06-12] MEDS: LEVALBUTEROL (NEB) 0.63 MG/3 ML AMP HHN SCH ×5 (02:43→20:30)
[2017-06-12] MEDS: PANTOPRAZOLE (EC) 40 MG TAB PO SCH (06:16)
[2017-06-12] MEDS: LEVOTHYROXINE 75 MCG TAB PO SCH (06:16)
[2017-06-12] MEDS: DILTIAZEM 30 MG TAB PO SCH ×3 (06:17→21:48)
[2017-06-12] MEDS: FUROSEMIDE 20 MG TAB PO SCH ×2 (06:17→17:04)
[2017-06-12 06:49] LABS: INR 3.49; PROTIME 35.6 Sec (12.2-14.2); PT RATIO 2.8
[2017-06-12] MEDS: LUBIPROSTONE 24 MCG CAP PO SCH ×2 (08:16→21:43)
[2017-06-12] MEDS: POLYETHYLENE GLYCOL 17 GM PACKET PO SCH (08:16)
[2017-06-12] MEDS: FLUCONAZOLE 150 MG TAB PO SCH (08:16)
[2017-06-12] MEDS: LACTOBACILLUS RHAMNOSUS CAP PO SCH (08:16)
[2017-06-12] MEDS: GUAIFENESIN LA 600 MG TABSR PO SCH ×2 (08:16→21:43)
[2017-06-12] MEDS: ATENOLOL 25 MG TAB PO SCH ×2 (08:16→21:00)
[2017-06-12] MEDS: FOLIC ACID 1 MG TAB PO SCH (08:16)
[2017-06-12] MEDS: MAGNESIUM OXIDE 400 MG TAB PO SCH (08:16)
[2017-06-12] MEDS: MULTIVITAMINS THERAPEUTIC TAB PO SCH (09:09)
--- NOTE | 2017-06-12 10:17 | CONS ---
Date/Time of Note Date/Time of Note DATE: 06/12/17 TIME: 10:15 Assessment/Plan Assessment/Plan Chief Complaint/Hosp Course 76 yo female on Coumadin admitted for TIA, who was found to have partial thrombosis of internal jugular vein. # Thrombosis while on Coumadin - Given that patient has a prosthetic mitral valve, her anticoagulation options are limited to Coumadin but this was on hold because of supratherapeutic INR. Especially since this (IJ clot) is a relatively asymptomatic partial thrombosis, I do not think we need to change anticoagulation at this time. - I would recommend to keep the INR between 2.5-3.5. Given INR was >4 and urology concern for perinephric bleed., patient given one time dose of vit K low dose on 05/31/17. When INR became subtherapeutic, patient restarted on 3 mg coumadin 06/01 and 06/02/17. Patient given 7.5 mg of coumadin on 06/04/[address] Nguyễn and 4 mg coumadin on 06/05/17. INR currently at 3.4. Spoke with Pharmacist. Given the labile nature of the INR, will restart Coumadin at 1 mg q day. - fondaparinox can be stopped. HIT screen negative. - Repeat renal US 06/04/17 showed 1. Mild left hydronephrosis. 2. Otherwise normal renal ultrasound. hgb is fairly stable ~11-12 and will follow # UTI -continue antibiotics #Ischemic Cardiomyopathy -management per cardiology Problems: Consultation Date/Type/Reason Admit Date/Time Jun 08, 2017 at 21:30 Initial Consult Date May 29, 2017 Type of Consultation: Hematology Reason for Consultation coagulopathy Referring Provider: DUANE NGUYỄN MD 24 HR Interval Summary Free Text/Dictation SOB has improved. ambulating. LUE and LLE weakness is improving Exam/Review of Systems Vital Signs Vitals Vital Signs Date Time Temp Pulse Resp B/P Pulse Ox O2 Delivery O2 Flow Rate FiO2 06/12/17 08:16 Nasal Cannula 2.0 06/12/17 07:33 82 20 96 06/12/17 07:30 99.0 114/55 Intake and Output 06/11/17 06/11/17 06/12/17 15:00 23:00 07:00 Intake Total 50 ml 750 ml Output Total 250 ml Balance 50 ml 500 ml Exam Constitutional: alert, oriented Psych: no complaints Head: normocephalic Eyes: nl conjunctiva ENMT: nl external ears & nose Neck: non-tender, supple Respiratory: clear to auscultation, normal air movement Cardiovascular: regular rate and rhythm Gastrointestinal: soft Musculoskeletal: nl extremities to inspection, nl gait and stance Extremities: normal pulses Neurological: ELECTROTHERAPIST II-XII intact Results Result Diagram: 06/09/17 0609 06/10/17 0615 Results 24 hrs Laboratory Tests Test 06/12/17 06:10 Prothrombin Time 35.6 H Prothrombin Time Ratio 2.8 INR International Normalized Ratio 3.49 Medications Medications Current Medications Lubiprostone (Amitiza) 24 mcg BID PO Last administered on 06/12/17 08:16; Admin Dose 24 MCG; Start 06/08/17 at 22:49 Nitroglycerin (Nitroglycerin (Sl Tab) 0.4 Mg) 0.4 tab PRN SL ; Start 06/08/17 at 22:49 Pantoprazole (Protonix Tab) 40 mg DAILY@06 PO Last administered on 06/12/17 06 :16; Admin Dose 40 MG; Start 06/08/17 at 22:49 Acetaminophen (Tylenol Tab) 650 mg Q6H PRN PO PAIN AND OR ELEVATED TEMP Last administered on 06/11/17 20:59; Admin Dose 650 MG; Start 06/08/17 at 22:49 Magnesium Oxide (Mag-Ox 400) 400 mg DAILY PO Last administered on 06/12/17 08: 16; Admin Dose 400 MG; Start 06/08/17 at 22:49 Lactobacillus Acidophilus/ Rhamnosus (Culturelle) 1 cap DAILY PO Last administered on 06/12/17 08:16; Admin Dose 1 CAP; Start 06/08/17 at 22:49 Atenolol (Tenormin) 25 mg BID PO Last administered on 06/12/17 08:16; Admin Dose 25 MG; Start 06/08/17 at 22:49 Polyethylene Glycol 8.5 gm 8.5 gm DAILY PO Last administered on 06/12/17 08:16 ; Admin Dose 8.5 GM; Start 06/08/17 at 22:49 Meropenem/Sodium Chloride (Merrem 1 Gm/50 ml (Pmx)) 50 ml @ 200 mls/hr Q12H IVPB Last administered on 06/11/17 22:17; Admin Dose 200 MLS/HR; Start at 22:49 Diltiazem HCl (Cardizem) 30 mg Q8 PO Last administered on 06/12/17 06:17; Admin Dose 30 MG; Start 06/08/17 at 22:49 Bisacodyl (Dulcolax Supp) 10 mg Q48H PRN [place] CONSTIPATION Last administered on 21:31; Admin Dose 10 MG; Start 06/08/17 at 22:49 Multivitamins Therapeutic (Theragran) 1 tab DAILY PO Last administered on 09:09; Admin Dose 1 TAB; Start 06/08/17 at 22:49 Folic Acid (Folic Acid) 1 mg DAILY PO Last administered on 06/12/17 08:16; Admin Dose 1 MG; Start 06/08/17 at 22:49 Fluconazole (Diflucan) 150 mg DAILY PO Last administered on 06/12/17 08:16; Admin Dose 150 MG; Start 06/09/17 at 09:00 Atorvastatin Calcium (Lipitor) 10 mg DAILY@21 PO Last administered on 20:18; Admin Dose 10 MG; Start 06/09/17 at 21:00 Ergocalciferol (Drisdol) 50,000 unit Sa@09 PO ; Start 06/14/17 at 09:00 Warfarin Sodium (Coumadin) 3 mg DAILY@17 PO Last administered on 06/10/17 17: 34; Admin Dose 3 MG; Start 06/10/17 at 17:00; Status Future hold Guaifenesin (Mucinex) 600 mg BID PO Last administered on 06/12/17 08:16; Admin Dose 600 MG; Start 06/11/17 at 09:00; Stop 06/15/17 at 21:59 Phenol (Chloraseptic Throat [place]) 2 spray Q4H PRN [place] SORE THROAT Last administered on 06/11/17 22:03; Admin Dose 2 SPRAY; Start 06/11/17 at 21:00 NATACHA SALAMANCA M.D. Jun 12, 2017 10:17
[2017-06-12] MEDS: MEROPENEM 1 GM/50ML(PMX) 50 ML IVPB SCH ×2 (10:35→21:51)
--- NOTE | 2017-06-12 10:36 | CONS ---
Date/Time of Note Date/Time of Note DATE: 06/12/17 TIME: 10:34 Assessment/Plan Assessment/Plan Chief Complaint/Hosp Course IMP: 1.tachycardia-? S Tach/PAF-overall improved when receives BB/CCB regimen [facility] [place] device 2.Hypotension-recurrent/? overdiuresis-impoved after IVF bolus and able o receive BB/CCB today 3.AF-currently reasonable rate control 4.Fevers/leukcytosis-increased significantly 5. TIA 6.UTI 7. coagulopathy-s/p Vitamin k and now again therapeutic 8. L sided rib pain-positive TTP/resolved-negative troponin 9. 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 MVR 14. Episode of AMS and [employer] INTERN thought to be due to possible CVA-head CT negative. Currently stable 15. CHF-systolic acute on chronic LVEF 40% by echo this admit 16. Pleural effusion s/p L thoracentesis Recc: -Now transferred to rehab -Continue BB/CCB as tolerated which have still been intermittently held due to low BP -Continue abx's and f/u cx data -Continue Coumadin and f/u INR -Hold lasix and follow BP and will give additional small IVF bolus and f/u BP response -PT/OT as tolerated Problems: Consultation Date/Type/Reason Admit Date/Time Jun 08, 2017 at 21:30 Initial Consult Date 06/08/2017 Type of Consultation: cardiology Reason for Consultation AF/hypotension Referring Provider: DUANE NGUYỄN MD Exam/Review of Systems Vital Signs Vitals Vital Signs Date Time Temp Pulse Resp B/P Pulse Ox O2 Delivery O2 Flow Rate FiO2 06/12/17 08:16 Nasal Cannula 2.0 06/12/17 07:33 82 20 96 06/12/17 07:30 99.0 114/55 Intake and Output 06/11/17 06/11/17 06/12/17 15:00 23:00 07:00 Intake Total 50 ml 750 ml Output Total 250 ml Balance 50 ml 500 ml Exam Review of Systems: CONSTITUTIONAL: No fevers, chills. PULMONARY: No sob CARDIOVASCULAR: No chest pain/palpitations GASTROINTESTINAL: No nausea/vomiting. GENITOURINARY: No hematuria/dysuria. MUSCULOSKELETAL: No myagias/arthalgias. PSYCHIATRIC: The patient denies depression. NEUROLOGIC: somewhat lethargic Constitutional: alert Psych: no complaints Head: normocephalic ENMT: mucosa pink and moist Neck: jvd (9 cm water), supple Respiratory: diminished breath sounds (at gan/B) Cardiovascular: regular rate and rhythm Gastrointestinal: non-tender, soft Musculoskeletal: muscle tone (normal) Extremities: edema (none) Neurological: other (NO focal deficits) Results Result Diagram: 06/09/17 0609 06/10/17 0615 Results 24 hrs Laboratory Tests Test 06/12/17 06:10 Prothrombin Time 35.6 H Prothrombin Time Ratio 2.8 INR International Normalized Ratio 3.49 Medications Medications Current Medications Lubiprostone (Amitiza) 24 mcg BID PO Last administered on 06/12/17 08:16; Admin Dose 24 MCG; Start 06/08/17 at 22:49 Nitroglycerin (Nitroglycerin (Sl Tab) 0.4 Mg) 0.4 tab PRN SL ; Start 06/08/17 at 22:49 Pantoprazole (Protonix Tab) 40 mg DAILY@06 PO Last administered on 06/12/17 06 :16; Admin Dose 40 MG; Start 06/08/17 at 22:49 Acetaminophen (Tylenol Tab) 650 mg Q6H PRN PO PAIN AND OR ELEVATED TEMP Last administered on 06/11/17 20:59; Admin Dose 650 MG; Start 06/08/17 at 22:49 Magnesium Oxide (Mag-Ox 400) 400 mg DAILY PO Last administered on 06/12/17 08: 16; Admin Dose 400 MG; Start 06/08/17 at 22:49 Lactobacillus Acidophilus/ Rhamnosus (Culturelle) 1 cap DAILY PO Last administered on 06/12/17 08:16; Admin Dose 1 CAP; Start 06/08/17 at 22:49 Atenolol (Tenormin) 25 mg BID PO Last administered on 06/12/17 08:16; Admin Dose 25 MG; Start 06/08/17 at 22:49 Polyethylene Glycol 8.5 gm 8.5 gm DAILY PO Last administered on 06/12/17 08:16 ; Admin Dose 8.5 GM; Start 06/08/17 at 22:49 Meropenem/Sodium Chloride (Merrem 1 Gm/50 ml (Pmx)) 50 ml @ 200 mls/hr Q12H IVPB Last administered on 06/11/17 22:17; Admin Dose 200 MLS/HR; Start at 22:49 Diltiazem HCl (Cardizem) 30 mg Q8 PO Last administered on 06/12/17 06:17; Admin Dose 30 MG; Start 06/08/17 at 22:49 Bisacodyl (Dulcolax Supp) 10 mg Q48H PRN [place] CONSTIPATION Last administered on 21:31; Admin Dose 10 MG; Start 06/08/17 at 22:49 Multivitamins Therapeutic (Theragran) 1 tab DAILY PO Last administered on 09:09; Admin Dose 1 TAB; Start 06/08/17 at 22:49 Folic Acid (Folic Acid) 1 mg DAILY PO Last administered on 06/12/17 08:16; Admin Dose 1 MG; Start 06/08/17 at 22:49 Fluconazole (Diflucan) 150 mg DAILY PO Last administered on 06/12/17 08:16; Admin Dose 150 MG; Start 06/09/17 at 09:00 Atorvastatin Calcium (Lipitor) 10 mg DAILY@21 PO Last administered on 20:18; Admin Dose 10 MG; Start 06/09/17 at 21:00 Ergocalciferol (Drisdol) 50,000 unit Sa@09 PO ; Start 06/14/17 at 09:00 Guaifenesin (Mucinex) 600 mg BID PO Last administered on 06/12/17 08:16; Admin Dose 600 MG; Start 06/11/17 at 09:00; Stop 06/15/17 at 21:59 Phenol (Chloraseptic Throat [place]) 2 spray Q4H PRN [place] SORE THROAT Last administered on 06/11/17 22:03; Admin Dose 2 SPRAY; Start 06/11/17 at 21:00 Warfarin Sodium (Coumadin) 1 mg DAILY@17 PO ; Start 06/12/17 at 17:00 PLACIDO COREA Jun 12, 2017 10:36
[2017-06-12] MEDS ORDERED: SOD CHLORIDE 0.9% 250 ML IV ONE (11:00)
--- NOTE | 2017-06-12 11:11 | CONS ---
Date/Time of Note Date/Time of Note DATE: 06/12/17 TIME: 11:09 Consult Date/Type/Reason Admit Date/Time Jun 08, 2017 at 21:30 Type of Consultation: cardiology Ordering Provider: DUANE NGUYỄN MD Subjective Patient resting in breath bed. Nurses report patient with frequent throat clearing. Objective Lungs clear abdomen soft Maximum assist 5 feet ambulation Vital Signs Date Time Temp Pulse Resp B/P Pulse Ox O2 Delivery O2 Flow Rate FiO2 06/12/17 08:16 Nasal Cannula 2.0 06/12/17 07:33 82 20 96 06/12/17 07:30 99.0 114/55 Intake and Output 06/11/17 06/11/17 06/12/17 15:00 23:00 07:00 Intake Total 50 ml 750 ml Output Total 250 ml Balance 50 ml 500 ml Results/Medications Result Diagram: 06/09/17 0609 06/10/17 0615 Results 24 hrs Laboratory Tests Test 06/12/17 06:10 Prothrombin Time 35.6 H Prothrombin Time Ratio 2.8 INR International Normalized Ratio 3.49 Medications Current Medications Lubiprostone (Amitiza) 24 mcg BID PO Last administered on 06/12/17 08:16; Admin Dose 24 MCG; Start 06/08/17 at 22:49 Nitroglycerin (Nitroglycerin (Sl Tab) 0.4 Mg) 0.4 tab PRN SL ; Start 06/08/17 at 22:49 Pantoprazole (Protonix Tab) 40 mg DAILY@06 PO Last administered on 06/12/17 06 :16; Admin Dose 40 MG; Start 06/08/17 at 22:49 Acetaminophen (Tylenol Tab) 650 mg Q6H PRN PO PAIN AND OR ELEVATED TEMP Last administered on 06/11/17 20:59; Admin Dose 650 MG; Start 06/08/17 at 22:49 Magnesium Oxide (Mag-Ox 400) 400 mg DAILY PO Last administered on 06/12/17 08: 16; Admin Dose 400 MG; Start 06/08/17 at 22:49 Lactobacillus Acidophilus/ Rhamnosus (Culturelle) 1 cap DAILY PO Last administered on 06/12/17 08:16; Admin Dose 1 CAP; Start 06/08/17 at 22:49 Atenolol (Tenormin) 25 mg BID PO Last administered on 06/12/17 08:16; Admin Dose 25 MG; Start 06/08/17 at 22:49 Polyethylene Glycol 8.5 gm 8.5 gm DAILY PO Last administered on 06/12/17 08:16 ; Admin Dose 8.5 GM; Start 06/08/17 at 22:49 Meropenem/Sodium Chloride (Merrem 1 Gm/50 ml (Pmx)) 50 ml @ 200 mls/hr Q12H IVPB Last administered on 06/12/17 10:35; Admin Dose 200 MLS/HR; Start at 22:49 Diltiazem HCl (Cardizem) 30 mg Q8 PO Last administered on 06/12/17 06:17; Admin Dose 30 MG; Start 06/08/17 at 22:49 Bisacodyl (Dulcolax Supp) 10 mg Q48H PRN [place] CONSTIPATION Last administered on 21:31; Admin Dose 10 MG; Start 06/08/17 at 22:49 Multivitamins Therapeutic (Theragran) 1 tab DAILY PO Last administered on 09:09; Admin Dose 1 TAB; Start 06/08/17 at 22:49 Folic Acid (Folic Acid) 1 mg DAILY PO Last administered on 06/12/17 08:16; Admin Dose 1 MG; Start 06/08/17 at 22:49 Fluconazole (Diflucan) 150 mg DAILY PO Last administered on 06/12/17 08:16; Admin Dose 150 MG; Start 06/09/17 at 09:00 Atorvastatin Calcium (Lipitor) 10 mg DAILY@21 PO Last administered on 20:18; Admin Dose 10 MG; Start 06/09/17 at 21:00 Ergocalciferol (Drisdol) 50,000 unit Sa@09 PO ; Start 06/14/17 at 09:00 Guaifenesin (Mucinex) 600 mg BID PO Last administered on 06/12/17 08:16; Admin Dose 600 MG; Start 06/11/17 at 09:00; Stop 06/15/17 at 21:59 Phenol (Chloraseptic Throat [place]) 2 spray Q4H PRN [place] SORE THROAT Last administered on 06/11/17 22:03; Admin Dose 2 SPRAY; Start 06/11/17 at 21:00 Warfarin Sodium 1 mg 1 mg DAILY@17 PO ; Start 06/12/17 at 17:00 Sodium Chloride (NS) 250 ml @ 250 mls/hr Q1H ONCE IV ; Start 06/12/17 at 11:00 ; Stop 06/12/17 at 11:59 Assessment/Plan Additional Assessment/Plan 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 Patient has begun ambulation. Dysphagia-continue speech therapy; videofluoro declined by family. BP- monitor for orthostatic hypotension afib, pacemaker Pleural effusion-s.p thoracentesis s.p. sepsis Left kidney hematoma-monitor kidney CAD stage 2 decub on sacrum-continue offloading and wound care ROBY RANGEL MD Jun 12, 2017 11:11
--- NOTE | 2017-06-12 11:35 | HKNOTE ---
DATE OF SERVICE: 06/08/2017 HISTORY OF PRESENT ILLNESS: Jamee is a 76-year-old lady with a history of prostatic mitral valve. Apparently while she was on Coumadin, she developed internal jugular vein thrombosis. She was on Coumadin plus aspirin She is feeling better. PAST MEDICAL HISTORY: Please see the H\T\P. PHYSICAL EXAMINATION: Physical examination shows a moderately built female in no distress. She appears better than yesterday. ENT, heart and lungs normal, except decreased breath sounds in both bases. Abdomen soft. Heart, S1, S2 normal. Irregular sinus rhythm. She has a pacemaker in the left upper chest. Extremities showed no edema, clubbing or cyanosis, but there are mild stasis changes in both legs. Lymph nodes, no peripheral lymphadenopathy. LABORATORY DATA: Her PT/INR today is 3.14. Her CBC is stable, except her hemoglobin is slightly down at 10.5. Her CMV was unremarkable on 06/06. ASSESSMENT: 1. Jugular vein thrombosis while on Coumadin. 2. Prostatic mitral valve on Coumadin. 3. Sepsis and UTI, improving on antibiotics. PLAN: This patient is on vancomycin and meropenem. Her sepsis is improving. She was on aspirin, which was discontinued. I think we should keep her INR preferably between 3 and 4, or at least between 2.5 and 3.5. We should also monitor her CBC. Dictated By: Timothy Burgess MD /bj/leobardo /Document#: [id number] JESÚS
[2017-06-12] MEDS: ACETAMINOPHEN 325 MG TAB PO PRN (15:29)
[2017-06-12] MEDS: WARFARIN 1 MG TAB PO SCH (17:03)
--- NOTE | 2017-06-12 17:19 | CONS ---
Date/Time of Note Date/Time of Note DATE: 06/12/17 TIME: 17:15 Assessment/Plan Assessment/Plan Chief Complaint/Hosp Course ID PROGRESS NOTE 24H INTERVAL SUMMARY Chief Complaint/Hosp Course * Pt on ABX for concern aspiration pneumonitis --> per staff makes strange upper airway noises, w/occassional dyspnea -> stable on supplemental O2 via NC, TMax 99.+ * Antibiotics: Fluconazole meropenem * Microbiology: Pleural fluid cultures remain negative PHYSICAL EXAMINATION: GENERAL: VSS, NAD, no fever HEENT: Unremarkable NECK: Trach midline CHEST: Equal chest rise bilaterally, O2 via NC HEART: Pulse RRR ABDOMEN: Soft, left flank pain EXTREMITIES: Warm SKIN: Warm, dry, mild dependent edema x4 ID ASSESSMENT: 76 yo F admitted with: 1. s/p acute sepsis versus systemic inflammatory response syndrome with persistent leukocytosis secondary to #2 * Recurrent hypotension => DDx diuretic induced? 2. Left kidney hematoma * Per note: patient has perinephric hematoma/bleeding while on Coumadin. 3. Resolving pneumonia with exudative left pleural effusion, status post thoracentesis 06/04/17 * Recurrent ASPIRATION SYNDROME ? 4. Coronary artery disease with a history of mitral valve mechanical prosthesis and ejection fraction of 40% 5. Cardiac arrhythmia=> S Tach/PAF-overall improved when receives BB/CCB regimen [place] deviceHistory of permanent pacemaker 6. Chronic pancreatitis with dilated pancreatic duct and multiple small cysts. 7. s/p Acute TIA per admission notes @ [facility] 8. s/p Bacteremia with blood culture on admission grew Bacillus species consistent with contaminant 9. 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 s/p Nina albicans UTI (-)MRSA Nares ABX ALLERGY: PCN CURRENT ABX: DAY # 15 => MERREM + Diflucan s/p Vanco IV -> DC'd 06/08 s/p Ertapenem 05/28-05/29 ID RECOMMENDATIONS Plan: Continue Merrem + DIflucan = as per Staff there is a concern of upper airway noises, aspiration, retained secretions? Remains on supplemental O2. -- Will continue to follow . Problems: Consultation Date/Type/Reason Admit Date/Time Jun 08, 2017 at 21:30 Type of Consultation: ID Referring Provider: DUANE NGUYỄN MD Exam/Review of Systems Vital Signs Vitals Vital Signs Date Time Temp Pulse Resp B/P Pulse Ox O2 Delivery O2 Flow Rate FiO2 06/12/17 17:07 75 112/56 95 Nasal Cannula 2.0 06/12/17 12:29 98.3 06/12/17 07:33 20 Intake and Output 06/11/17 06/11/17 06/12/17 15:00 23:00 07:00 Intake Total 50 ml 750 ml Output Total 250 ml Balance 50 ml 500 ml Results Result Diagram: 06/09/17 0609 06/10/17 0615 Results 24 hrs Laboratory Tests Test 06/12/17 06:10 Prothrombin Time 35.6 H Prothrombin Time Ratio 2.8 INR International Normalized Ratio 3.49 Medications Medications Current Medications Lubiprostone (Amitiza) 24 mcg BID PO Last administered on 06/12/17 08:16; Admin Dose 24 MCG; Start 06/08/17 at 22:49 Nitroglycerin (Nitroglycerin (Sl Tab) 0.4 Mg) 0.4 tab PRN SL ; Start 06/08/17 at 22:49 Pantoprazole (Protonix Tab) 40 mg DAILY@06 PO Last administered on 06/12/17 06 :16; Admin Dose 40 MG; Start 06/08/17 at 22:49 Acetaminophen (Tylenol Tab) 650 mg Q6H PRN PO PAIN AND OR ELEVATED TEMP Last administered on 06/12/17 15:29; Admin Dose 650 MG; Start 06/08/17 at 22:49 Magnesium Oxide (Mag-Ox 400) 400 mg DAILY PO Last administered on 06/12/17 08: 16; Admin Dose 400 MG; Start 06/08/17 at 22:49 Lactobacillus Acidophilus/ Rhamnosus (Culturelle) 1 cap DAILY PO Last administered on 06/12/17 08:16; Admin Dose 1 CAP; Start 06/08/17 at 22:49 Atenolol (Tenormin) 25 mg BID PO Last administered on 06/12/17 08:16; Admin Dose 25 MG; Start 06/08/17 at 22:49 Polyethylene Glycol 8.5 gm 8.5 gm DAILY PO Last administered on 06/12/17 08:16 ; Admin Dose 8.5 GM; Start 06/08/17 at 22:49 Meropenem/Sodium Chloride (Merrem 1 Gm/50 ml (Pmx)) 50 ml @ 200 mls/hr Q12H IVPB Last administered on 06/12/17 10:35; Admin Dose 200 MLS/HR; Start at 22:49 Diltiazem HCl (Cardizem) 30 mg Q8 PO Last administered on 06/12/17 13:46; Admin Dose 30 MG; Start 06/08/17 at 22:49 Bisacodyl (Dulcolax Supp) 10 mg Q48H PRN [place] CONSTIPATION Last administered on 21:31; Admin Dose 10 MG; Start 06/08/17 at 22:49 Multivitamins Therapeutic (Theragran) 1 tab DAILY PO Last administered on 09:09; Admin Dose 1 TAB; Start 06/08/17 at 22:49 Folic Acid (Folic Acid) 1 mg DAILY PO Last administered on 06/12/17 08:16; Admin Dose 1 MG; Start 06/08/17 at 22:49 Fluconazole (Diflucan) 150 mg DAILY PO Last administered on 06/12/17 08:16; Admin Dose 150 MG; Start 06/09/17 at 09:00 Atorvastatin Calcium (Lipitor) 10 mg DAILY@21 PO Last administered on 20:18; Admin Dose 10 MG; Start 06/09/17 at 21:00 Ergocalciferol (Drisdol) 50,000 unit Sa@09 PO ; Start 06/14/17 at 09:00 Guaifenesin (Mucinex) 600 mg BID PO Last administered on 06/12/17 08:16; Admin Dose 600 MG; Start 06/11/17 at 09:00; Stop 06/15/17 at 21:59 Phenol (Chloraseptic Throat [place]) 2 spray Q4H PRN [place] SORE THROAT Last administered on 06/11/17 22:03; Admin Dose 2 SPRAY; Start 06/11/17 at 21:00 Warfarin Sodium (Coumadin) 1 mg DAILY@17 PO Last administered on 06/12/17 17: 03; Admin Dose 1 MG; Start 06/12/17 at 17:00 CLAY GRIDER NP Jun 12, 2017 17:19
--- NOTE | 2017-06-12 20:14 | PN ---
Date/Time of Note Date/Time of Note DATE: 06/12/17 TIME: 20:13 Assessment/Plan VTE Prophylaxis VTE Prophylaxis Intervention: other Lines/Catheters IV Catheter Type (from Nrs): Saline Lock Urinary Cath still in place: No Assessment/Plan Chief Complaint/Hosp Course 1. SEPSIS resolving 2. AFIB, controlled 3. HTN, controlled 4. ASHD 5. hyponatremia 6. recurrent UTI 7. LOW EF 8. low platelets HX 9. Anemia 10. urinary incontinence 11. Constipation 12. Vit d deficiency 13. Muscle weakness 14 EDEMA 15 DYSPHAGIA PLAN PT OT LASIX SWALLOW TEST Problems: Subjective 24 Hr Interval Summary Subjective hx not possible: other (POSS DYSPHAGIA+) Exam/Review of Systems Vital Signs Vitals Vital Signs Date Time Temp Pulse Resp B/P Pulse Ox O2 Delivery O2 Flow Rate FiO2 06/12/17 17:07 75 112/56 95 Nasal Cannula 2.0 06/12/17 12:29 98.3 06/12/17 07:33 20 Intake and Output 06/11/17 06/11/17 06/12/17 15:00 23:00 07:00 Intake Total 50 ml 750 ml Output Total 250 ml Balance 50 ml 500 ml Exam Respiratory: clear to auscultation Cardiovascular: regular rate and rhythm Gastrointestinal: bowel sounds, soft Musculoskeletal: nl extremities to inspection Results Result Diagram: 06/09/17 0609 06/10/17 0615 Results 24 hrs Laboratory Tests Test 06/12/17 06:10 Prothrombin Time 35.6 H Prothrombin Time Ratio 2.8 INR International Normalized Ratio 3.49 Medications Medications Current Medications Lubiprostone (Amitiza) 24 mcg BID PO Last administered on 06/12/17 08:16; Admin Dose 24 MCG; Start 06/08/17 at 22:49 Nitroglycerin (Nitroglycerin (Sl Tab) 0.4 Mg) 0.4 tab PRN SL ; Start 06/08/17 at 22:49 Pantoprazole (Protonix Tab) 40 mg DAILY@06 PO Last administered on 06/12/17 06 :16; Admin Dose 40 MG; Start 06/08/17 at 22:49 Acetaminophen (Tylenol Tab) 650 mg Q6H PRN PO PAIN AND OR ELEVATED TEMP Last administered on 06/12/17 15:29; Admin Dose 650 MG; Start 06/08/17 at 22:49 Magnesium Oxide (Mag-Ox 400) 400 mg DAILY PO Last administered on 06/12/17 08: 16; Admin Dose 400 MG; Start 06/08/17 at 22:49 Lactobacillus Acidophilus/ Rhamnosus (Culturelle) 1 cap DAILY PO Last administered on 06/12/17 08:16; Admin Dose 1 CAP; Start 06/08/17 at 22:49 Atenolol (Tenormin) 25 mg BID PO Last administered on 06/12/17 08:16; Admin Dose 25 MG; Start 06/08/17 at 22:49 Polyethylene Glycol 8.5 gm 8.5 gm DAILY PO Last administered on 06/12/17 08:16 ; Admin Dose 8.5 GM; Start 06/08/17 at 22:49 Meropenem/Sodium Chloride (Merrem 1 Gm/50 ml (Pmx)) 50 ml @ 200 mls/hr Q12H IVPB Last administered on 06/12/17 10:35; Admin Dose 200 MLS/HR; Start at 22:49 Diltiazem HCl (Cardizem) 30 mg Q8 PO Last administered on 06/12/17 13:46; Admin Dose 30 MG; Start 06/08/17 at 22:49 Bisacodyl (Dulcolax Supp) 10 mg Q48H PRN [place] CONSTIPATION Last administered on 21:31; Admin Dose 10 MG; Start 06/08/17 at 22:49 Multivitamins Therapeutic (Theragran) 1 tab DAILY PO Last administered on 09:09; Admin Dose 1 TAB; Start 06/08/17 at 22:49 Folic Acid (Folic Acid) 1 mg DAILY PO Last administered on 06/12/17 08:16; Admin Dose 1 MG; Start 06/08/17 at 22:49 Fluconazole (Diflucan) 150 mg DAILY PO Last administered on 06/12/17 08:16; Admin Dose 150 MG; Start 06/09/17 at 09:00 Atorvastatin Calcium (Lipitor) 10 mg DAILY@21 PO Last administered on 20:18; Admin Dose 10 MG; Start 06/09/17 at 21:00 Ergocalciferol (Drisdol) 50,000 unit Sa@09 PO ; Start 06/14/17 at 09:00 Guaifenesin (Mucinex) 600 mg BID PO Last administered on 06/12/17 08:16; Admin Dose 600 MG; Start 06/11/17 at 09:00; Stop 06/15/17 at 21:59 Phenol (Chloraseptic Throat [place]) 2 spray Q4H PRN [place] SORE THROAT Last administered on 06/11/17 22:03; Admin Dose 2 SPRAY; Start 06/11/17 at 21:00 Warfarin Sodium (Coumadin) 1 mg DAILY@17 PO Last administered on 06/12/17 17: 03; Admin Dose 1 MG; Start 06/12/17 at 17:00 DUANE NGUYỄN MD Jun 12, 2017 20:14
[2017-06-12] MEDS: ATORVASTATIN 10 MG TAB PO SCH (21:43)
[2017-06-13] MEDS: ACETAMINOPHEN 325 MG TAB PO PRN (01:26)
[2017-06-13] MEDS: LEVALBUTEROL (NEB) 0.63 MG/3 ML AMP HHN SCH ×4 (01:30→20:00)
[2017-06-13 02:00] VITALS: BP 112/65; RESP 18
--- NOTE | 2017-06-13 05:30 | HKNOTE ---
DATE OF SERVICE: 06/07/2017 Hematology Visit Note HISTORY OF PRESENT ILLNESS: Mrs Stevenson is a 76-year-old, Vietnamese-speaking lady with a history of atrial fibrillation and ischemic cardiomyopathy, who was admitted because of a TIA. The patient also has a prosthetic mitral valve. While on Coumadin, the patient also developed internal jugular vein thrombosis. The patient was started also on Arixtra. Her PT/INR today is 2.8 and Arixtra has been discontinued. The patient overall is improving. She also had sepsis plus a UTI and is on vancomycin and meropenem. For Past Medical History and Review of Systems please see the H and P. PHYSICAL EXAMINATION: A regularly-built female on oxygen. She is comfortable and afebrile. ENT: Normal. NECK: Supple without any abnormal masses or pulsations. CHEST: Symmetrical. LUNGS: Decreased breath sounds in the left base. HEART: Has atrial fibrillation and tachycardia. ABDOMEN: Soft. No masses. GENITOURINARY: External genitalia normal. EXTREMITIES: No edema, clubbing, or cyanosis. KEG FILLER: Appears to be unremarkable. LYMPH NODES: No peripheral lymphadenopathy. LABORATORY DATA: Her CBC and CMP were unremarkable except for WBC 12,000, hemoglobin 11.3, and slightly elevated LFTs without improvement. Her PT/INR today is 2.8. IMPRESSION: 1. Prosthetic mitral valve, on anticoagulation. 2. Internal jugular vein thrombosis while on Coumadin. The patient doing well now with increased Coumadin. 3. History of left pleural effusion, status post left thoracentesis. 4. History of atrial fibrillation and ischemic cardiomyopathy. PLAN AND DISCUSSION: This patient apparently developed internal jugular vein thrombosis while on Coumadin. It is not clear whether her INR was therapeutic. Her PT/INR should be between 2.5 and 3.5 at least, or even 3-4. Of course, atrial fibrillation also requires anticoagulation. We should monitor her ProTime closely, and I really should keep it around 3. We will monitor her CBC. She is on multiple antibiotics. Dictated By: Timothy Burgess MD /bj/seun /Document#: [id number]
[2017-06-13] MEDS: FUROSEMIDE 20 MG TAB PO SCH ×2 (06:15→18:23)
[2017-06-13] MEDS: DILTIAZEM 30 MG TAB PO SCH ×3 (06:15→22:00)
[2017-06-13] MEDS: PANTOPRAZOLE (EC) 40 MG TAB PO SCH (06:16)
[2017-06-13] MEDS: LEVOTHYROXINE 75 MCG TAB PO SCH (06:17)
[2017-06-13 07:30] VITALS: BP 112/59; RESP 22
[2017-06-13 07:47] LABS: INR 3.09; PROTIME 32.3 Sec (12.2-14.2); PT RATIO 2.5
[2017-06-13 08:42] LABS: ALBUMIN/GLOBULIN RATIO 0.63
[2017-06-13 08:54] LABS: ALBUMIN 2.1 g/dl (3.3-4.9); BILIRUBIN,INDIRECT 0.4 mg/dl (0-1.1); BILIRUBIN,TOTAL 0.4 mg/dl (0.2-1.3); CALCIUM 7.2 mg/dl (8.4-10.2); CREATININE 0.72 mg/dl (0.44-1.00); POTASSIUM 4.3 mmol/L (3.5-5.1); TOTAL PROTEIN 5.4 g/dl (6.1-8.1)
[2017-06-13] MEDS: POLYETHYLENE GLYCOL 17 GM PACKET PO SCH (09:00)
[2017-06-13] MEDS: ATENOLOL 25 MG TAB PO SCH ×2 (09:00→20:40)
[2017-06-13] MEDS: FLUCONAZOLE 150 MG TAB PO SCH ×2 (09:00→20:45)
[2017-06-13] MEDS: LACTOBACILLUS RHAMNOSUS CAP PO SCH (09:00)
[2017-06-13] MEDS: GUAIFENESIN LA 600 MG TABSR PO SCH ×2 (09:00→20:40)
[2017-06-13] MEDS: MULTIVITAMINS THERAPEUTIC TAB PO SCH (09:00)
[2017-06-13] MEDS: MAGNESIUM OXIDE 400 MG TAB PO SCH ×2 (09:00→15:21)
[2017-06-13] MEDS: LUBIPROSTONE 24 MCG CAP PO SCH ×2 (09:00→20:38)
[2017-06-13] MEDS: FOLIC ACID 1 MG TAB PO SCH (09:00)
--- NOTE | 2017-06-13 10:59 | PN ---
Date/Time of Note Date/Time of Note DATE: 06/13/17 TIME: 10:58 Assessment/Plan VTE Prophylaxis VTE Prophylaxis Intervention: ambulation Lines/Catheters IV [facility] Saline Lock Urinary Cath still in place: No Assessment/Plan Chief Complaint/Hosp Course 1. SEPSIS resolving 2. AFIB, controlled 3. HTN, controlled 4. ASHD 5. hyponatremia 6. recurrent UTI 7. LOW EF 8. Hx low platelets 9. Anemia 10. urinary incontinence 11. Constipation 12. Vit D deficiency 13. Muscle weakness 14 EDEMA 15 DYSPHAGIA Problems: Assessment/Plan 1. swallow evaluation Subjective 24 Hr Interval Summary Constitutional: improved, no complaints Exam/Review of Systems Vital Signs Vitals Vital Signs Date Time Temp Pulse Resp B/P Pulse Ox O2 Delivery O2 Flow Rate FiO2 06/13/17 07:30 98.7 76 22 112/59 94 06/13/17 01:30 Nasal Cannula 2.0 Intake and Output 06/12/17 06/12/17 06/13/17 15:00 23:00 07:00 Intake Total 300 ml 270 ml 770 ml Balance 300 ml 270 ml 770 ml Exam ENMT: nl external ears & nose Neck: supple Respiratory: clear to auscultation Cardiovascular: regular rate and rhythm Results Result Diagram: 06/09/17 0609 06/13/17 0631 Results 24 hrs Laboratory Tests Test 06/13/17 06:31 Prothrombin Time 32.3 H Prothrombin Time Ratio 2.5 INR International Normalized Ratio 3.09 Sodium Level 132 L Potassium Level 4.3 Chloride Level 95 L Carbon Dioxide Level 31 Anion Gap 10 Blood Urea Nitrogen 22 H Creatinine 0.72 Glucose Level 70 Calcium Level 7.2 L Total Bilirubin 0.4 Direct Bilirubin 0.00 Indirect Bilirubin 0.4 Aspartate Amino Transf (AST/SGOT) 63 H Alanine Aminotransferase (ALT/SGPT) 52 Alkaline Phosphatase 128 H Total Protein 5.4 L Albumin 2.1 L Globulin 3.30 H Albumin/Globulin Ratio 0.63 Medications Medications Current Medications Lubiprostone (Amitiza) 24 mcg BID PO Last administered on 06/12/17t 21:43; Admin Dose 24 MCG; Start 06/08/17 at 22:49 Nitroglycerin (Nitroglycerin (Sl Tab) 0.4 Mg) 0.4 tab PRN SL ; Start 06/08/17 at 22:49 Pantoprazole (Protonix Tab) 40 mg DAILY@06 PO Last administered on 06/13/17 06 :16; Admin Dose 40 MG; Start 06/08/17 at 22:49 Acetaminophen (Tylenol Tab) 650 mg Q6H PRN PO PAIN AND OR ELEVATED TEMP Last administered on 06/13/17 01:26; Admin Dose 650 MG; Start 06/08/17 at 22:49 Magnesium Oxide (Mag-Ox 400) 400 mg DAILY PO Last administered on 06/12/17 08: 16; Admin Dose 400 MG; Start 06/08/17 at 22:49 Lactobacillus Acidophilus/ Rhamnosus (Culturelle) 1 cap DAILY PO Last administered on 06/12/17 08:16; Admin Dose 1 CAP; Start 06/08/17 at 22:49 Atenolol (Tenormin) 25 mg BID PO Last administered on 06/12/17 08:16; Admin Dose 25 MG; Start 06/08/17 at 22:49 Polyethylene Glycol 8.5 gm 8.5 gm DAILY PO Last administered on 06/12/17 08:16 ; Admin Dose 8.5 GM; Start 06/08/17 at 22:49 Meropenem/Sodium Chloride (Merrem 1 Gm/50 ml (Pmx)) 50 ml @ 200 mls/hr Q12H IVPB Last administered on 06/12/17 21:51; Admin Dose 200 MLS/HR; Start at 22:49 Diltiazem HCl (Cardizem) 30 mg Q8 PO Last administered on 06/13/17 06:15; Admin Dose 30 MG; Start 06/08/17 at 22:49 Bisacodyl (Dulcolax Supp) 10 mg Q48H PRN [place] CONSTIPATION Last administered on 21:31; Admin Dose 10 MG; Start 06/08/17 at 22:49 Multivitamins Therapeutic (Theragran) 1 tab DAILY PO Last administered on 09:09; Admin Dose 1 TAB; Start 06/08/17 at 22:49 Folic Acid (Folic Acid) 1 mg DAILY PO Last administered on 06/12/17 08:16; Admin Dose 1 MG; Start 06/08/17 at 22:49 Fluconazole (Diflucan) 150 mg DAILY PO Last administered on 06/12/17 08:16; Admin Dose 150 MG; Start 06/09/17 at 09:00 Atorvastatin Calcium (Lipitor) 10 mg DAILY@21 PO Last administered on 21:43; Admin Dose 10 MG; Start 06/09/17 at 21:00 Ergocalciferol (Drisdol) 50,000 unit Sa@09 PO ; Start 06/14/17 at 09:00 Guaifenesin (Mucinex) 600 mg BID PO Last administered on 06/12/17 21:43; Admin Dose 600 MG; Start 06/11/17 at 09:00; Stop 06/15/17 at 21:59 Phenol (Chloraseptic Throat [place]) 2 spray Q4H PRN [place] SORE THROAT Last administered on 06/11/17 22:03; Admin Dose 2 SPRAY; Start 06/11/17 at 21:00 Warfarin Sodium (Coumadin) 1 mg DAILY@17 PO Last administered on 06/12/17 17: 03; Admin Dose 1 MG; Start 06/12/17 at 17:00 RENAY TRAN Jun 13, 2017 10:59
--- NOTE | 2017-06-13 11:04 | CONS ---
Date/Time of Note Date/Time of Note DATE: 06/13/17 TIME: 11:00 Consult Date/Type/Reason Admit Date/Time Jun 08, 2017 at 21:30 Type of Consultation: ID Ordering Provider: DUANE NGUYỄN MD Subjective No new complaints Objective pulm-cta max assist ambulation Vital Signs Date Time Temp Pulse Resp B/P Pulse Ox O2 Delivery O2 Flow Rate FiO2 06/13/17 07:30 98.7 76 22 112/59 94 06/13/17 01:30 Nasal Cannula 2.0 Intake and Output 06/12/17 06/12/17 06/13/17 14:59 22:59 06:59 Intake Total 300 ml 270 ml 770 ml Balance 300 ml 270 ml 770 ml Results/Medications Result Diagram: 06/09/17 0609 06/13/17 0631 Results 24 hrs Laboratory Tests Test 06/13/17 06:31 Prothrombin Time 32.3 H Prothrombin Time Ratio 2.5 INR International Normalized Ratio 3.09 Sodium Level 132 L Potassium Level 4.3 Chloride Level 95 L Carbon Dioxide Level 31 Anion Gap 10 Blood Urea Nitrogen 22 H Creatinine 0.72 Glucose Level 70 Calcium Level 7.2 L Total Bilirubin 0.4 Direct Bilirubin 0.00 Indirect Bilirubin 0.4 Aspartate Amino Transf (AST/SGOT) 63 H Alanine Aminotransferase (ALT/SGPT) 52 Alkaline Phosphatase 128 H Total Protein 5.4 L Albumin 2.1 L Globulin 3.30 H Albumin/Globulin Ratio 0.63 Medications Current Medications Lubiprostone (Amitiza) 24 mcg BID PO Last administered on 06/12/17 21:43; Admin Dose 24 MCG; Start 06/08/17 at 22:49 Nitroglycerin (Nitroglycerin (Sl Tab) 0.4 Mg) 0.4 tab PRN SL ; Start 06/08/17 at 22:49 Pantoprazole (Protonix Tab) 40 mg DAILY@06 PO Last administered on 06/13/17 06 :16; Admin Dose 40 MG; Start 06/08/17 at 22:49 Acetaminophen (Tylenol Tab) 650 mg Q6H PRN PO PAIN AND OR ELEVATED TEMP Last administered on 06/13/17 01:26; Admin Dose 650 MG; Start 06/08/17 at 22:49 Magnesium Oxide (Mag-Ox 400) 400 mg DAILY PO Last administered on 06/12/17 08: 16; Admin Dose 400 MG; Start 06/08/17 at 22:49 Lactobacillus Acidophilus/ Rhamnosus (Culturelle) 1 cap DAILY PO Last administered on 06/12/17 08:16; Admin Dose 1 CAP; Start 06/08/17 at 22:49 Atenolol (Tenormin) 25 mg BID PO Last administered on 06/12/17 08:16; Admin Dose 25 MG; Start 06/08/17 at 22:49 Polyethylene Glycol 8.5 gm 8.5 gm DAILY PO Last administered on 06/12/17 08:16 ; Admin Dose 8.5 GM; Start 06/08/17 at 22:49 Meropenem/Sodium Chloride (Merrem 1 Gm/50 ml (Pmx)) 50 ml @ 200 mls/hr Q12H IVPB Last administered on 06/12/17 21:51; Admin Dose 200 MLS/HR; Start at 22:49 Diltiazem HCl (Cardizem) 30 mg Q8 PO Last administered on 06/13/17 06:15; Admin Dose 30 MG; Start 06/08/17 at 22:49 Bisacodyl (Dulcolax Supp) 10 mg Q48H PRN [place] CONSTIPATION Last administered on 21:31; Admin Dose 10 MG; Start 06/08/17 at 22:49 Multivitamins Therapeutic (Theragran) 1 tab DAILY PO Last administered on 09:09; Admin Dose 1 TAB; Start 06/08/17 at 22:49 Folic Acid (Folic Acid) 1 mg DAILY PO Last administered on 06/12/17 08:16; Admin Dose 1 MG; Start 06/08/17 at 22:49 Fluconazole (Diflucan) 150 mg DAILY PO Last administered on 06/12/17 08:16; Admin Dose 150 MG; Start 06/09/17 at 09:00 Atorvastatin Calcium (Lipitor) 10 mg DAILY@21 PO Last administered on 21:43; Admin Dose 10 MG; Start 06/09/17 at 21:00 Ergocalciferol (Drisdol) 50,000 unit Sa@09 PO ; Start 06/14/17 at 09:00 Guaifenesin (Mucinex) 600 mg BID PO Last administered on 06/12/17 21:43; Admin Dose 600 MG; Start 06/11/17 at 09:00; Stop 06/15/17 at 21:59 Phenol (Chloraseptic Throat [place]) 2 spray Q4H PRN [place] SORE THROAT Last administered on 06/11/17 22:03; Admin Dose 2 SPRAY; Start 06/11/17 at 21:00 Warfarin Sodium (Coumadin) 1 mg DAILY@17 PO Last administered on 06/12/17 17: 03; Admin Dose 1 MG; Start 06/12/17 at 17:00 Assessment/Plan Additional Assessment/Plan 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 Patient has begun ambulation. Dysphagia-continue speech therapy; videofluoro rescheduled with today. BP- monitor for orthostatic hypotension afib, pacemaker Pleural effusion-s.p thoracentesis s.p. sepsis Left kidney hematoma-monitor kidney CAD stage 2 decub on sacrum-continue offloading and wound care ROBY RANGEL MD Jun 13, 2017 11:04
[2017-06-13] MEDS: MEROPENEM 1 GM/50ML(PMX) 50 ML IVPB SCH ×2 (12:55→22:53)
[2017-06-13] MEDS ORDERED: VITAMIN A & D 5 GM OINT PACKET TOP ONE (13:04)
[2017-06-13 14:00] VITALS: BP 108/56; RESP 20
--- NOTE | 2017-06-13 14:30 | RADRPT ---
PROCEDURE: Video-fluoroscopy swallowing study. CLINICAL INDICATION: Dysphagia. TECHNIQUE: Fluoroscopic guided video swallowing study was done in conjunction with the speech ther apist. The study was confined to the oral, pharyngeal, and cervical phases of the swallowing mechani sm. 2.0 minutes of fluoroscopy time was used. 25 series of images were obtained. COMPARISON: No prior study is available for comparison. FINDINGS: There is no evidence of aspiration during the exam. IMPRESSION: 1. No aspiration during swallowing. 2. Please refer to the speech therapist's recommendations for future feedings. RPTAT: QQ .Isiah Lamar MD, MD Date Time Electronically viewed and signed by .Isiah Lamar MD, on 06/13/2017 14:30 .R/
--- NOTE | 2017-06-13 14:38 | CONS ---
Date/Time of Note Date/Time of Note DATE: 06/13/17 TIME: 14:36 Assessment/Plan Assessment/Plan Chief Complaint/Hosp Course 76 yo female on Coumadin admitted for TIA, who was found to have partial thrombosis of internal jugular vein. # Thrombosis while on Coumadin - Given that patient has a prosthetic mitral valve, her anticoagulation options are limited to Coumadin but this was on hold because of supratherapeutic INR. Especially since this (IJ clot) is a relatively asymptomatic partial thrombosis, I do not think we need to change anticoagulation at this time. - I would recommend to keep the INR between 2.5-3.5. Given INR was >4 and urology concern for perinephric bleed., patient given one time dose of vit K low dose on 05/31/17. When INR became subtherapeutic, patient restarted on 3 mg coumadin 06/01 and 06/02/17. Patient given 7.5 mg of coumadin on 06/04/[address] Nguyễn and 4 mg coumadin on 06/05/17. INR currently at 3.0. Spoke with Pharmacist. Continue Coumadin at 1 mg q day. - fondaparinox can be stopped. HIT screen negative. - Repeat renal US 06/04/17 showed 1. Mild left hydronephrosis. 2. Otherwise normal renal ultrasound. hgb is fairly stable ~11-12 and will follow # UTI -continue antibiotics #Ischemic Cardiomyopathy -management per cardiology Problems: Consultation Date/Type/Reason Admit Date/Time Jun 08, 2017 at 21:30 Initial Consult Date May 29, 2017 Type of Consultation: Hematology Reason for Consultation R IJ thrombosis Referring Provider: DUANE NGUYỄN MD 24 HR Interval Summary Free Text/Dictation no acute overnight events. pt is ambulating Exam/Review of Systems Vital Signs Vitals Vital Signs Date Time Temp Pulse Resp B/P Pulse Ox O2 Delivery O2 Flow Rate FiO2 06/13/17 14:07 2.0 06/13/17 08:07 76 18 95 Nasal Cannula 06/13/17 07:30 98.7 112/59 Intake and Output 06/12/17 06/12/17 06/13/17 15:00 23:00 07:00 Intake Total 300 ml 270 ml 770 ml Balance 300 ml 270 ml 770 ml Exam Constitutional: alert, oriented Psych: no complaints Head: normocephalic Eyes: nl conjunctiva ENMT: nl external ears & nose Neck: non-tender, supple Respiratory: clear to auscultation Cardiovascular: nl pulses, regular rate and rhythm Gastrointestinal: soft Musculoskeletal: other (LUE nad LLE weakness improved) Results Result Diagram: 06/09/17 0609 06/13/17 0631 Results 24 hrs Laboratory Tests Test 06/13/17 06:31 Prothrombin Time 32.3 H Prothrombin Time Ratio 2.5 INR International Normalized Ratio 3.09 Sodium Level 132 L Potassium Level 4.3 Chloride Level 95 L Carbon Dioxide Level 31 Anion Gap 10 Blood Urea Nitrogen 22 H Creatinine 0.72 Glucose Level 70 Calcium Level 7.2 L Total Bilirubin 0.4 Direct Bilirubin 0.00 Indirect Bilirubin 0.4 Aspartate Amino Transf (AST/SGOT) 63 H Alanine Aminotransferase (ALT/SGPT) 52 Alkaline Phosphatase 128 H Total Protein 5.4 L Albumin 2.1 L Globulin 3.30 H Albumin/Globulin Ratio 0.63 Medications Medications Current Medications Lubiprostone (Amitiza) 24 mcg BID PO Last administered on 06/12/17 21:43; Admin Dose 24 MCG; Start 06/08/17 at 22:49 Nitroglycerin (Nitroglycerin (Sl Tab) 0.4 Mg) 0.4 tab PRN SL ; Start 06/08/17 at 22:49 Pantoprazole (Protonix Tab) 40 mg DAILY@06 PO Last administered on 06/13/17 06 :16; Admin Dose 40 MG; Start 06/08/17 at 22:49 Acetaminophen (Tylenol Tab) 650 mg Q6H PRN PO PAIN AND OR ELEVATED TEMP Last administered on 06/13/17 01:26; Admin Dose 650 MG; Start 06/08/17 at 22:49 Magnesium Oxide (Mag-Ox 400) 400 mg DAILY PO Last administered on 06/12/17 08: 16; Admin Dose 400 MG; Start 06/08/17 at 22:49 Lactobacillus Acidophilus/ Rhamnosus (Culturelle) 1 cap DAILY PO Last administered on 06/12/17 08:16; Admin Dose 1 CAP; Start 06/08/17 at 22:49 Atenolol (Tenormin) 25 mg BID PO Last administered on 06/12/17 08:16; Admin Dose 25 MG; Start 06/08/17 at 22:49 Polyethylene Glycol 8.5 gm 8.5 gm DAILY PO Last administered on 06/12/17 08:16 ; Admin Dose 8.5 GM; Start 06/08/17 at 22:49 Meropenem/Sodium Chloride (Merrem 1 Gm/50 ml (Pmx)) 50 ml @ 200 mls/hr Q12H IVPB Last administered on 06/13/17 12:55; Admin Dose 200 MLS/HR; Start at 22:49 Diltiazem HCl (Cardizem) 30 mg Q8 PO Last administered on 06/13/17 06:15; Admin Dose 30 MG; Start 06/08/17 at 22:49 Bisacodyl (Dulcolax Supp) 10 mg Q48H PRN [place] CONSTIPATION Last administered on 21:31; Admin Dose 10 MG; Start 06/08/17 at 22:49 Multivitamins Therapeutic (Theragran) 1 tab DAILY PO Last administered on 09:09; Admin Dose 1 TAB; Start 06/08/17 at 22:49 Folic Acid (Folic Acid) 1 mg DAILY PO Last administered on 06/12/17 08:16; Admin Dose 1 MG; Start 06/08/17 at 22:49 Fluconazole (Diflucan) 150 mg DAILY PO Last administered on 06/12/17 08:16; Admin Dose 150 MG; Start 06/09/17 at 09:00 Atorvastatin Calcium (Lipitor) 10 mg DAILY@21 PO Last administered on 21:43; Admin Dose 10 MG; Start 06/09/17 at 21:00 Ergocalciferol (Drisdol) 50,000 unit Sa@09 PO ; Start 06/14/17 at 09:00 Guaifenesin (Mucinex) 600 mg BID PO Last administered on 06/12/17 21:43; Admin Dose 600 MG; Start 06/11/17 at 09:00; Stop 06/15/17 at 21:59 Phenol (Chloraseptic Throat [place]) 2 spray Q4H PRN [place] SORE THROAT Last administered on 06/11/17 22:03; Admin Dose 2 SPRAY; Start 06/11/17 at 21:00 Warfarin Sodium (Coumadin) 1 mg DAILY@17 PO Last administered on 7/27/17at 17: 03; Admin Dose 1 MG; Start 06/12/17 at 17:00 Warfarin Sodium (Coumadin) 1 mg ONCE@17 ONCE PO ; Start 06/13/17 at 17:00; Stop 06/13/17 at 17:01; Status NATACHA ANGULO M.D. Jun 13, 2017 14:38
--- NOTE | 2017-06-13 15:10 | CONS ---
Date/Time of Note Date/Time of Note DATE: 06/13/17 TIME: 15:05 Assessment/Plan Assessment/Plan Chief Complaint/Hosp Course IMP: 1.tachycardia-? S Tach/PAF-overall improved when receives BB/CCB regimen [facility] [place] device 2.Hypotension-recurrent/? overdiuresis-impoved after IVF bolus and able o receive BB/CCB today 3.AF-currently reasonable rate control 4.Fevers/leukcytosis-increased significantly 5. TIA 6.UTI 7. coagulopathy-s/p Vitamin k and now again therapeutic 8. L sided rib pain-positive TTP/resolved-negative troponin 9. 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 MVR 14. 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 Currently stable 15. CHF-systolic acute on chronic LVEF 40% by echo this admit 16. Pleural effusion s/p L thoracentesis Recc: -Now transferred to rehab -Continue BB/CCB as tolerated which were partially held due to patient having swallow eval -Continue abx's and f/u cx data -Continue Coumadin and f/u INR closely -PT/OT as tolerated Problems: Consultation Date/Type/Reason Admit Date/Time Jun 08, 2017 at 21:30 Initial Consult Date 06/08/2017 Type of Consultation: cardiology Reason for Consultation AF Referring Provider: DUANE NGUYỄN MD Exam/Review of Systems Vital Signs Vitals Vital Signs Date Time Temp Pulse Resp B/P Pulse Ox O2 Delivery O2 Flow Rate FiO2 06/13/17 14:07 2.0 06/13/17 08:07 76 18 95 Nasal Cannula 06/13/17 07:30 98.7 112/59 Intake and Output 06/12/17 06/12/17 06/13/17 15:00 23:00 07:00 Intake Total 300 ml 270 ml 770 ml Balance 300 ml 270 ml 770 ml Exam Review of Systems: CONSTITUTIONAL: No fevers, chills. PULMONARY: No sob CARDIOVASCULAR: No chest pain/palpitations GASTROINTESTINAL: No nausea/vomiting. GENITOURINARY: No hematuria/dysuria. MUSCULOSKELETAL: No myagias/arthalgias. PSYCHIATRIC: The patient denies depression. NEUROLOGIC: No weakness Constitutional: alert Psych: no complaints Head: normocephalic ENMT: mucosa pink and moist Neck: jvd (8-9 cm water), supple Respiratory: clear to auscultation Cardiovascular: irregular rhythm Gastrointestinal: non-tender, soft Musculoskeletal: muscle tone (normal) Extremities: edema (none) Neurological: other (No focAL DEFICITS) Results Result Diagram: 06/09/17 0609 06/13/17 0631 Results 24 hrs Laboratory Tests Test 06/13/17 06:31 Prothrombin Time 32.3 H Prothrombin Time Ratio 2.5 INR International Normalized Ratio 3.09 Sodium Level 132 L Potassium Level 4.3 Chloride Level 95 L Carbon Dioxide Level 31 Anion Gap 10 Blood Urea Nitrogen 22 H Creatinine 0.72 Glucose Level 70 Calcium Level 7.2 L Total Bilirubin 0.4 Direct Bilirubin 0.00 Indirect Bilirubin 0.4 Aspartate Amino Transf (AST/SGOT) 63 H Alanine Aminotransferase (ALT/SGPT) 52 Alkaline Phosphatase 128 H Total Protein 5.4 L Albumin 2.1 L Globulin 3.30 H Albumin/Globulin Ratio 0.63 Medications Medications Current Medications Lubiprostone (Amitiza) 24 mcg BID PO Last administered on 06/12/17 21:43; Admin Dose 24 MCG; Start 06/08/17 at 22:49 Nitroglycerin (Nitroglycerin (Sl Tab) 0.4 Mg) 0.4 tab PRN SL ; Start 06/08/17 at 22:49 Pantoprazole (Protonix Tab) 40 mg DAILY@06 PO Last administered on 06/13/17 06 :16; Admin Dose 40 MG; Start 06/08/17 at 22:49 Acetaminophen (Tylenol Tab) 650 mg Q6H PRN PO PAIN AND OR ELEVATED TEMP Last administered on 06/13/17 01:26; Admin Dose 650 MG; Start 06/08/17 at 22:49 Magnesium Oxide (Mag-Ox 400) 400 mg DAILY PO Last administered on 06/12/17 08: 16; Admin Dose 400 MG; Start 06/08/17 at 22:49 Lactobacillus Acidophilus/ Rhamnosus (Culturelle) 1 cap DAILY PO Last administered on 06/12/17 08:16; Admin Dose 1 CAP; Start 06/08/17 at 22:49 Atenolol (Tenormin) 25 mg BID PO Last administered on 06/12/17 08:16; Admin Dose 25 MG; Start 06/08/17 at 22:49 Polyethylene Glycol 8.5 gm 8.5 gm DAILY PO Last administered on 06/12/17 08:16 ; Admin Dose 8.5 GM; Start 06/08/17 at 22:49 Meropenem/Sodium Chloride (Merrem 1 Gm/50 ml (Pmx)) 50 ml @ 200 mls/hr Q12H IVPB Last administered on 06/13/17 12:55; Admin Dose 200 MLS/HR; Start at 22:49 Diltiazem HCl (Cardizem) 30 mg Q8 PO Last administered on 06/13/17 06:15; Admin Dose 30 MG; Start 06/08/17 at 22:49 Bisacodyl (Dulcolax Supp) 10 mg Q48H PRN [place] CONSTIPATION Last administered on 21:31; Admin Dose 10 MG; Start 06/08/17 at 22:49 Multivitamins Therapeutic (Theragran) 1 tab DAILY PO Last administered on 09:09; Admin Dose 1 TAB; Start 06/08/17 at 22:49 Folic Acid (Folic Acid) 1 mg DAILY PO Last administered on 06/12/17 08:16; Admin Dose 1 MG; Start 06/08/17 at 22:49 Fluconazole (Diflucan) 150 mg DAILY PO Last administered on 06/12/17 08:16; Admin Dose 150 MG; Start 06/09/17 at 09:00 Atorvastatin Calcium (Lipitor) 10 mg DAILY@21 PO Last administered on 21:43; Admin Dose 10 MG; Start 06/09/17 at 21:00 Ergocalciferol (Drisdol) 50,000 unit Sa@09 PO ; Start 06/14/17 at 09:00 Guaifenesin (Mucinex) 600 mg BID PO Last administered on 06/12/17 21:43; Admin Dose 600 MG; Start 06/11/17 at 09:00; Stop 06/15/17 at 21:59 Phenol (Chloraseptic Throat [place]) 2 spray Q4H PRN [place] SORE THROAT Last administered on 06/11/17 22:03; Admin Dose 2 SPRAY; Start 06/11/17 at 21:00 Warfarin Sodium (Coumadin) 1 mg DAILY@17 PO Last administered on 06/12/17t 17: 03; Admin Dose 1 MG; Start 06/12/17 at 17:00 Warfarin Sodium (Coumadin) 1 mg ONCE@17 ONCE PO ; Start 06/13/17 at 17:00; Stop 06/13/17 at 17:01; Status PLACIDO MOON Jun 13, 2017 15:10
[2017-06-13] MEDS ORDERED: WARFARIN 1 MG TAB PO ONE (17:00)
[2017-06-13] MEDS: WARFARIN 1 MG TAB PO SCH (18:22)
[2017-06-13 19:41] VITALS: BP 128/76; RESP 18
[2017-06-13] MEDS: ATORVASTATIN 10 MG TAB PO SCH (20:38)
[2017-06-13 22:48] VITALS: BP 99/47; PULSE 74
[2017-06-14] MEDS: LEVALBUTEROL (NEB) 0.63 MG/3 ML AMP HHN SCH (02:00)
[2017-06-14 02:08] VITALS: BP 117/65; RESP 18
[2017-06-14 06:29] VITALS: BP 117/64; PULSE 90
[2017-06-14] MEDS: FUROSEMIDE 20 MG TAB PO SCH ×2 (06:30→17:37)
[2017-06-14] MEDS: PANTOPRAZOLE (EC) 40 MG TAB PO SCH (06:31)
[2017-06-14] MEDS: DILTIAZEM 30 MG TAB PO SCH ×3 (06:31→22:16)
[2017-06-14] MEDS: LEVOTHYROXINE 75 MCG TAB PO SCH (06:34)
[2017-06-14 07:30] VITALS: BP 114/60; RESP 22
[2017-06-14 07:50] LABS: INR 3.37; PROTIME 34.6 Sec (12.2-14.2); PT RATIO 2.7
[2017-06-14] MEDS: ATENOLOL 25 MG TAB PO SCH ×2 (09:00→20:46)
[2017-06-14] MEDS: FLUCONAZOLE 150 MG TAB PO SCH (09:00)
[2017-06-14] MEDS: POLYETHYLENE GLYCOL 17 GM PACKET PO SCH (09:16)
[2017-06-14] MEDS: FOLIC ACID 1 MG TAB PO SCH (09:16)
[2017-06-14] MEDS: ERGOCALCIFEROL 50,000 UNIT CAP PO SCH (09:17)
[2017-06-14] MEDS: MULTIVITAMINS THERAPEUTIC TAB PO SCH (09:17)
[2017-06-14] MEDS: LUBIPROSTONE 24 MCG CAP PO SCH ×2 (09:17→20:46)
[2017-06-14] MEDS: MAGNESIUM OXIDE 400 MG TAB PO SCH (09:18)
[2017-06-14] MEDS: LACTOBACILLUS RHAMNOSUS CAP PO SCH (09:18)
[2017-06-14] MEDS: GUAIFENESIN LA 600 MG TABSR PO SCH (09:20)
--- NOTE | 2017-06-14 09:30 | PN ---
Date/Time of Note Date/Time of Note DATE: 06/14/17 TIME: 09:29 Assessment/Plan VTE Prophylaxis VTE Prophylaxis Intervention: anti-embolic stocking (knee high) Lines/Catheters IV [facility]from [facility] [place] Urinary Cath still in place: No Assessment/Plan Chief Complaint/Hosp Course 1. SEPSIS resolving 2. AFIB, controlled 3. HTN, controlled 4. ASHD 5. hyponatremia 6. recurrent UTI 7. LOW EF 8. Hx low platelets 9. Anemia 10. urinary incontinence 11. Constipation 12. Vit D deficiency 13. Muscle weakness 14 EDEMA 15 DYSPHAGIA Problems: Assessment/Plan 1. continue physical therapy 2. start midodrine for short period of time Subjective 24 Hr Interval Summary Constitutional: improved, no complaints Exam/Review of Systems Vital Signs Vitals Vital Signs Date Time Temp Pulse Resp B/P Pulse Ox O2 Delivery O2 Flow Rate FiO2 06/14/17 06:29 90 117/64 06/14/17 02:31 2.0 06/14/17 02:08 98.5 18 93 06/13/17 20:00 Nasal Cannula Intake and Output 06/13/17 06/13/17 06/14/17 15:00 23:00 07:00 Intake Total 320 ml 450 ml Balance 320 ml 450 ml Exam Constitutional: alert Psych: no complaints ENMT: nl external ears & nose Neck: supple Respiratory: clear to auscultation Cardiovascular: regular rate and rhythm Results Result Diagram: 06/13/17 0631 Results 24 hrs Laboratory Tests Test 06/14/17 06:20 Prothrombin Time 34.6 H Prothrombin Time Ratio 2.7 INR International Normalized Ratio 3.37 Medications Medications Current Medications Lubiprostone (Amitiza) 24 mcg BID PO Last administered on 06/14/17 09:17; Admin Dose 24 MCG; Start 06/08/17 at 22:49 Nitroglycerin (Nitroglycerin (Sl Tab) 0.4 Mg) 0.4 tab PRN SL ; Start 06/08/17 at 22:49 Pantoprazole (Protonix Tab) 40 mg DAILY@06 PO Last administered on 06/14/17 06 :31; Admin Dose 40 MG; Start 06/08/17 at 22:49 Acetaminophen (Tylenol Tab) 650 mg Q6H PRN PO PAIN AND OR ELEVATED TEMP Last administered on 06/13/17 01:26; Admin Dose 650 MG; Start 06/08/17 at 22:49 Magnesium Oxide (Mag-Ox 400) 400 mg DAILY PO Last administered on 06/14/17 09: 18; Admin Dose 400 MG; Start 06/08/17 at 22:49 Lactobacillus Acidophilus/ Rhamnosus (Culturelle) 1 cap DAILY PO Last administered on 06/14/17 09:18; Admin Dose 1 CAP; Start 06/08/17 at 22:49 Polyethylene Glycol 8.5 gm 8.5 gm DAILY PO Last administered on 06/14/17 09:16 ; Admin Dose 8.5 GM; Start 06/08/17 at 22:49 Meropenem/Sodium Chloride (Merrem 1 Gm/50 ml (Pmx)) 50 ml @ 200 mls/hr Q12H IVPB Last administered on 06/13/17 22:53; Admin Dose 200 MLS/HR; Start at 22:49 Diltiazem HCl (Cardizem) 30 mg Q8 PO Last administered on 06/14/17 06:31; Admin Dose 30 MG; Start 06/08/17 at 22:49 Bisacodyl (Dulcolax Supp) 10 mg Q48H PRN [place] CONSTIPATION Last administered on 21:31; Admin Dose 10 MG; Start 06/08/17 at 22:49 Multivitamins Therapeutic (Theragran) 1 tab DAILY PO Last administered on 09:17; Admin Dose 1 TAB; Start 06/08/17 at 22:49 Folic Acid (Folic Acid) 1 mg DAILY PO Last administered on 06/14/17 09:16; Admin Dose 1 MG; Start 06/08/17 at 22:49 Fluconazole (Diflucan) 150 mg DAILY PO Last administered on 06/13/17 20:45; Admin Dose 150 MG; Start 06/09/17 at 09:00 Atorvastatin Calcium (Lipitor) 10 mg DAILY@21 PO Last administered on 20:38; Admin Dose 10 MG; Start 06/09/17 at 21:00 Ergocalciferol (Drisdol) 50,000 unit Sa@09 PO Last administered on 06/14/17 09 :17; Admin Dose 50,000 UNIT; Start 7/29/17 at 09:00 Guaifenesin (Mucinex) 600 mg BID PO Last administered on 06/14/17 09:20; Admin Dose 600 MG; Start 06/11/17 at 09:00; Stop 06/15/17 at 21:59 Phenol (Chloraseptic Throat [place]) 2 spray Q4H PRN [place] SORE THROAT Last administered on 06/11/17 22:03; Admin Dose 2 SPRAY; Start 06/11/17 at 21:00 Warfarin Sodium (Coumadin) 1 mg DAILY@17 PO Last administered on 06/13/17 18: 22; Admin Dose 1 MG; Start 06/12/17 at 17:00 Atenolol (Tenormin) 12.5 mg BID PO ; Start 06/13/17 at 21:00 RENAY TRAN Jun 14, 2017 09:30
[2017-06-14] MEDS: LEVALBUTEROL (NEB) 0.63 MG/3 ML AMP HHN PRN (09:39)
[2017-06-14] MEDS: MEROPENEM 1 GM/50ML(PMX) 50 ML IVPB SCH (11:46)
--- NOTE | 2017-06-14 12:03 | CONS ---
Date/Time of Note Date/Time of Note DATE: 06/14/17 TIME: 12:00 Assessment/Plan Assessment/Plan Additional Assessment/Plan 1.tachycardia-? S Tach/PAF-overall improved when receives BB/CCB regimen [place] device - stable now 2.Hypotension-recurrent/? overdiuresis-impoved after IVF bolus - Rx as needed 3.AF-currently reasonable rate control - stable 4.Fevers/leukcytosis-increased significantly 5.TIA - 6.UTI - on anti-bx 7. coagulopathy-s/p Vitamin k and now again therapeutic - stable 8. L sided rib pain-positive TTP/resolved-negative troponin 9. 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 MVR 14. 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 Currently stable 15. CHF-systolic acute on chronic LVEF 40% by echo this admit 16. Pleural effusion s/p L thoracentesis Consultation Date/Type/Reason Admit Date/Time Jun 08, 2017 at 21:30 Initial Consult Date Type of Consultation: cardiology Referring Provider: DUANE NGUYỄN MD 24 HR Interval Summary Free Text/Dictation NO acute change - BP stable - in good fluid status - doubt ischemia ROS: No fever, no chills, no nausea, no vomiting, no diarrhea/constipation No recent weight changes No chest pain, no PND, no orthopnea No dizziness, blurred vision No thirst, no heat or cold intolerance Exam/Review of Systems Vital Signs Vitals Vital Signs Date Time Temp Pulse Resp B/P Pulse Ox O2 Delivery O2 Flow Rate FiO2 06/14/17 09:39 78 18 99 Nasal Cannula 2.0 06/14/17 07:30 99.0 114/60 Intake and Output 06/13/17 06/13/17 06/14/17 15:00 23:00 07:00 Intake Total 320 ml 450 ml Balance 320 ml 450 ml Exam General: WN/WD/NAD, AOx 2-3 HEENT: Unicetric/atraumatic/EOMI (follow commands) NECK: JVD elevated, no thyromegaly Lymph: no lymphadenopathy HEART: Ir Iregular with no S3, II/ systolic murmur at apex, pacer in place LUNGS: Coarse sounds ABD: soft, NT, ND, +BS : Intact Neuro: non focal SKIN: chronic changes EXT: trace edema Results Result Diagram: 06/13/17 0631 Results 24 hrs Laboratory Tests Test 06/14/17 06:20 Prothrombin Time 34.6 H Prothrombin Time Ratio 2.7 INR International Normalized Ratio 3.37 Medications Medications Current Medications Lubiprostone (Amitiza) 24 mcg BID PO Last administered on 06/14/17 09:17; Admin Dose 24 MCG; Start 06/08/17 at 22:49 Nitroglycerin (Nitroglycerin (Sl Tab) 0.4 Mg) 0.4 tab PRN SL ; Start 06/08/17 at 22:49 Pantoprazole (Protonix Tab) 40 mg DAILY@06 PO Last administered on 06/14/17 06 :31; Admin Dose 40 MG; Start 06/08/17 at 22:49 Acetaminophen (Tylenol Tab) 650 mg Q6H PRN PO PAIN AND OR ELEVATED TEMP Last administered on 06/13/17 01:26; Admin Dose 650 MG; Start 06/08/17 at 22:49 Magnesium Oxide (Mag-Ox 400) 400 mg DAILY PO Last administered on 06/14/17 09: 18; Admin Dose 400 MG; Start 06/08/17 at 22:49 Lactobacillus Acidophilus/ Rhamnosus (Culturelle) 1 cap DAILY PO Last administered on 06/14/17 09:18; Admin Dose 1 CAP; Start 06/08/17 at 22:49 Polyethylene Glycol 8.5 gm 8.5 gm DAILY PO Last administered on 06/14/17 09:16 ; Admin Dose 8.5 GM; Start 06/08/17 at 22:49 Meropenem/Sodium Chloride (Merrem 1 Gm/50 ml (Pmx)) 50 ml @ 200 mls/hr Q12H IVPB Last administered on 06/14/17 11:46; Admin Dose 200 MLS/HR; Start at 22:49 Diltiazem HCl (Cardizem) 30 mg Q8 PO Last administered on 06/14/17 06:31; Admin Dose 30 MG; Start 06/08/17 at 22:49 Bisacodyl (Dulcolax Supp) 10 mg Q48H PRN [place] CONSTIPATION Last administered on 21:31; Admin Dose 10 MG; Start 06/08/17 at 22:49 Multivitamins Therapeutic (Theragran) 1 tab DAILY PO Last administered on 09:17; Admin Dose 1 TAB; Start 06/08/17 at 22:49 Folic Acid (Folic Acid) 1 mg DAILY PO Last administered on 06/14/17 09:16; Admin Dose 1 MG; Start 06/08/17 at 22:49 Atorvastatin Calcium (Lipitor) 10 mg DAILY@21 PO Last administered on 20:38; Admin Dose 10 MG; Start 06/09/17 at 21:00 Ergocalciferol (Drisdol) 50,000 unit Sa@09 PO Last administered on 06/14/17 09 :17; Admin Dose 50,000 UNIT; Start 06/14/17 at 09:00 Warfarin Sodium (Coumadin) 1 mg DAILY@17 PO Last administered on 06/13/17 18: 22; Admin Dose 1 MG; Start 06/12/17 at 17:00 Atenolol (Tenormin) 12.5 mg BID PO ; Start 06/13/17 at 21:00 JESSA JUNG MD Jun 14, 2017 12:03
--- NOTE | 2017-06-14 12:21 | CONS ---
Date/Time of Note Date/Time of Note DATE: 06/14/17 TIME: 12:19 Consult Date/Type/Reason Admit Date/Time Jun 08, 2017 at 21:30 Type of Consultation: cardiology Ordering Provider: DUANE NGUYỄN MD Subjective Activity tolerance continues to improve Objective Lungs clear anteriorly abdomen soft Moderate assist ambulation 20 feet with use of a front wheel walker Vital Signs Date Time Temp Pulse Resp B/P Pulse Ox O2 Delivery O2 Flow Rate FiO2 06/14/17 09:39 78 18 99 Nasal Cannula 2.0 06/14/17 07:30 99.0 114/60 Intake and Output 06/13/17 06/13/17 06/14/17 15:00 23:00 07:00 Intake Total 320 ml 450 ml Balance 320 ml 450 ml Results/Medications Result Diagram: 06/13/1731 Results 24 hrs Laboratory Tests Test 06/14/17 06:20 Prothrombin Time 34.6 H Prothrombin Time Ratio 2.7 INR International Normalized Ratio 3.37 Medications Current Medications Lubiprostone (Amitiza) 24 mcg BID PO Last administered on 06/14/17 09:17; Admin Dose 24 MCG; Start 06/08/17 at 22:49 Nitroglycerin (Nitroglycerin (Sl Tab) 0.4 Mg) 0.4 tab PRN SL ; Start 06/08/17 at 22:49 Pantoprazole (Protonix Tab) 40 mg DAILY@06 PO Last administered on 06/14/17 06 :31; Admin Dose 40 MG; Start 06/08/17 at 22:49 Acetaminophen (Tylenol Tab) 650 mg Q6H PRN PO PAIN AND OR ELEVATED TEMP Last administered on 06/13/17 01:26; Admin Dose 650 MG; Start 06/08/17 at 22:49 Magnesium Oxide (Mag-Ox 400) 400 mg DAILY PO Last administered on 06/14/17 09: 18; Admin Dose 400 MG; Start 06/08/17 at 22:49 Lactobacillus Acidophilus/ Rhamnosus (Culturelle) 1 cap DAILY PO Last administered on 06/14/17 09:18; Admin Dose 1 CAP; Start 06/08/17 at 22:49 Polyethylene Glycol 8.5 gm 8.5 gm DAILY PO Last administered on 06/14/17 09:16 ; Admin Dose 8.5 GM; Start 06/08/17 at 22:49 Meropenem/Sodium Chloride (Merrem 1 Gm/50 ml (Pmx)) 50 ml @ 200 mls/hr Q12H IVPB Last administered on 06/14/17 11:46; Admin Dose 200 MLS/HR; Start at 22:49 Diltiazem HCl (Cardizem) 30 mg Q8 PO Last administered on 06/14/17 06:31; Admin Dose 30 MG; Start 06/08/17 at 22:49 Bisacodyl (Dulcolax Supp) 10 mg Q48H PRN [place] CONSTIPATION Last administered on 21:31; Admin Dose 10 MG; Start 06/08/17 at 22:49 Multivitamins Therapeutic (Theragran) 1 tab DAILY PO Last administered on 09:17; Admin Dose 1 TAB; Start 06/08/17 at 22:49 Folic Acid (Folic Acid) 1 mg DAILY PO Last administered on 06/14/17 09:16; Admin Dose 1 MG; Start 06/08/17 at 22:49 Atorvastatin Calcium (Lipitor) 10 mg DAILY@21 PO Last administered on 20:38; Admin Dose 10 MG; Start 06/09/17 at 21:00 Ergocalciferol (Drisdol) 50,000 unit Sa@09 PO Last administered on 06/14/17 09 :17; Admin Dose 50,000 UNIT; Start 06/14/17 at 09:00 Warfarin Sodium (Coumadin) 1 mg DAILY@17 PO Last administered on 06/13/17 18: 22; Admin Dose 1 MG; Start 06/12/17 at 17:00 Atenolol (Tenormin) 12.5 mg BID PO ; Start 06/13/17 at 21:00 Assessment/Plan Additional Assessment/Plan Rehabilitation -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 Ambulation quality and endurance continues to improve. Dysphagia-continue speech therapy; patient did well with that videofluoroscopy examination with no signs of aspiration. Continue speech training BP- monitor for orthostatic hypotension afib, pacemaker Pleural effusion-s.p thoracentesis s.p. sepsis Left kidney hematoma-monitor kidney CAD stage 2 decub on sacrum-continue offloading and wound care ROBY RANGEL MD Jun 14, 2017 12:21
[2017-06-14] MEDS: WARFARIN 1 MG TAB PO SCH (17:36)
--- NOTE | 2017-06-14 18:12 | CONS ---
Date/Time of Note Date/Time of Note DATE: 06/14/17 TIME: 18:04 Assessment/Plan Assessment/Plan Chief Complaint/Hosp Course ID PROGRESS NOTE 24H INTERVAL SUMMARY Chief Complaint/Hosp Course * Hx of CVA w/R-hemiparesis (+)concern for dysphagia according to staff; hence she was continued on IV ABX * --> per staff makes strange upper airway noises, w/occasional dyspnea -> stable on supplemental O2 via NC, no fevers * Dysphagia-continue speech therapy; patient did well with that videofluoroscopy examination with no signs of aspiration. Continue speech training * Antibiotics: Fluconazole meropenem * Microbiology: Pleural fluid cultures remain negative PHYSICAL EXAMINATION: GENERAL: VSS, NAD, no fever HEENT: Unremarkable NECK: Trach midline CHEST: Equal chest rise bilaterally, O2 via NC HEART: Pulse RRR ABDOMEN: Soft, left flank pain EXTREMITIES: Warm SKIN: Warm, dry, mild dependent edema x4 ID ASSESSMENT: 76 yo F admitted with: 1. s/p acute sepsis versus systemic inflammatory response syndrome with persistent leukocytosis secondary to #2 * Recurrent hypotension => DDx diuretic induced? 2. Left kidney hematoma * Per note: patient has perinephric hematoma/bleeding while on Coumadin. 3. Resolving pneumonia with exudative left pleural effusion, status post thoracentesis 06/04/17 * Recurrent ASPIRATION SYNDROME ? 4. Coronary artery disease with a history of mitral valve mechanical prosthesis and ejection fraction of 40% 5. Cardiac arrhythmia=> S Tach/PAF-overall improved when receives BB/CCB regimen [facility] [place] deviceHistory of permanent pacemaker 6. Chronic pancreatitis with dilated pancreatic duct and multiple small cysts. 7. s/p Acute TIA per admission notes @ [facility] 8. s/p Bacteremia with blood culture on admission grew Bacillus species consistent with contaminant 9. 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 s/p Nina albicans UTI (-)MRSA Nares ABX ALLERGY: PCN CURRENT ABX: DAY # 17 => MERREM + Diflucan == DC ABX TODAY s/p Vanco IV -> DC'd 06/08 s/p Ertapenem 05/28-05/29 ID RECOMMENDATIONS Has completed adequate course of ABX -> Will DC ABX and see how she tolerates. If there is evidence of recurrent aspiration; and/or clinical indicators for recurrent sepsis issues; restart ABX For TEMP > 101.0; send BCx, UA, Urine Cx, stool for C.Diff, sputum if possible for respiratory culture. . Problems: Consultation Date/Type/Reason Admit Date/Time Jun 08, 2017 at 21:30 Type of Consultation: ID Referring Provider: DUANE NGUYỄN MD Exam/Review of Systems Vital Signs Vitals Vital Signs Date Time Temp Pulse Resp B/P Pulse Ox O2 Delivery O2 Flow Rate FiO2 06/14/17 09:39 78 18 99 Nasal Cannula 2.0 06/14/17 07:30 99.0 114/60 Intake and Output 06/13/17 06/13/17 06/14/17 15:00 23:00 07:00 Intake Total 320 ml 450 ml Balance 320 ml 450 ml Results Result Diagram: 06/13/17630 Results 24 hrs Laboratory Tests Test 06/14/17 06:20 Prothrombin Time 34.6 H Prothrombin Time Ratio 2.7 INR International Normalized Ratio 3.37 Medications Medications Current Medications Lubiprostone (Amitiza) 24 mcg BID PO Last administered on 06/14/17 09:17; Admin Dose 24 MCG; Start 06/08/17 at 22:49 Nitroglycerin (Nitroglycerin (Sl Tab) 0.4 Mg) 0.4 tab PRN SL ; Start 06/08/17 at 22:49 Pantoprazole (Protonix Tab) 40 mg DAILY@06 PO Last administered on 06/14/17 06 :31; Admin Dose 40 MG; Start 06/08/17 at 22:49 Acetaminophen (Tylenol Tab) 650 mg Q6H PRN PO PAIN AND OR ELEVATED TEMP Last administered on 06/13/17 01:26; Admin Dose 650 MG; Start 06/08/17 at 22:49 Magnesium Oxide (Mag-Ox 400) 400 mg DAILY PO Last administered on 06/14/17 09: 18; Admin Dose 400 MG; Start 06/08/17 at 22:49 Lactobacillus Acidophilus/ Rhamnosus (Culturelle) 1 cap DAILY PO Last administered on 06/14/17 09:18; Admin Dose 1 CAP; Start 06/08/17 at 22:49 Polyethylene Glycol 8.5 gm 8.5 gm DAILY PO Last administered on 06/14/17 09:16 ; Admin Dose 8.5 GM; Start 06/08/17 at 22:49 Meropenem/Sodium Chloride (Merrem 1 Gm/50 ml (Pmx)) 50 ml @ 200 mls/hr Q12H IVPB Last administered on 06/14/17 11:46; Admin Dose 200 MLS/HR; Start at 22:49 Diltiazem HCl (Cardizem) 30 mg Q8 PO Last administered on 06/14/17 06:31; Admin Dose 30 MG; Start 06/08/17 at 22:49 Bisacodyl (Dulcolax Supp) 10 mg Q48H PRN [place] CONSTIPATION Last administered on 21:31; Admin Dose 10 MG; Start 06/08/17 at 22:49 Multivitamins Therapeutic (Theragran) 1 tab DAILY PO Last administered on 09:17; Admin Dose 1 TAB; Start 06/08/17 at 22:49 Folic Acid (Folic Acid) 1 mg DAILY PO Last administered on 06/14/17 09:16; Admin Dose 1 MG; Start 06/08/17 at 22:49 Atorvastatin Calcium (Lipitor) 10 mg DAILY@21 PO Last administered on 20:38; Admin Dose 10 MG; Start 06/09/17 at 21:00 Ergocalciferol (Drisdol) 50,000 unit Sa@09 PO Last administered on 06/14/17 09 :17; Admin Dose 50,000 UNIT; Start 06/14/17 at 09:00 Warfarin Sodium (Coumadin) 1 mg DAILY@17 PO Last administered on 06/14/17 17: 36; Admin Dose 1 MG; Start 06/12/17 at 17:00 Atenolol (Tenormin) 12.5 mg BID PO ; Start 06/13/17 at 21:00 CLAY GRIDER NP Jun 14, 2017 18:12
[2017-06-14 19:32] VITALS: BP 108/61; RESP 19
[2017-06-14] MEDS: ATORVASTATIN 10 MG TAB PO SCH (20:46)
[2017-06-15] MEDS: PANTOPRAZOLE (EC) 40 MG TAB PO SCH (06:28)
[2017-06-15] MEDS: LEVOTHYROXINE 75 MCG TAB PO SCH (06:28)
[2017-06-15] MEDS: DILTIAZEM 30 MG TAB PO SCH ×3 (06:29→21:10)
[2017-06-15] MEDS: FUROSEMIDE 20 MG TAB PO SCH (06:29)
[2017-06-15 06:54] LABS: BASOPHIL # 0.1 10^3/ul (0.0-0.1); BASOPHILS % 0.9 % (0.0-2.0); EOSINOPHILS # 0.1 10^3/ul (0.0-0.5); HEMATOCRIT 31.1 % (37.0-47.0); HEMOGLOBIN 10.5 g/dl (12.0-16.0); LYMPHOCYTES # 1.3 10^3/ul (0.8-2.9); MEAN CORPUSCULAR HEMOGLOBIN 29.5 pg (29.0-33.0); MEAN CORPUSCULAR HGB CONC 33.8 g/dl (32.0-37.0); MEAN CORPUSCULAR VOLUME 87.4 fl (82.0-101.0); MEAN PLATELET VOLUME 11.8 fl (7.4-10.4); MONOCYTES % 14.8 % (0.0-11.0); NEUTROPHIL # 4.1 10^3/ul (1.6-7.5); PLATELET COUNT 257 10^3/UL (140-415); RED BLOOD COUNT 3.56 10^6/ul (4.20-5.40); RED CELL DISTRIBUTION WIDTH 15.9 % (11.5-14.5); WHITE BLOOD COUNT 6.7 10^3/ul (4.8-10.8)
[2017-06-15 07:14] LABS: INR 2.8; PROTIME 29.9 Sec (12.2-14.2); PT RATIO 2.3
[2017-06-15 07:16] LABS: CALCIUM 7.4 mg/dl (8.4-10.2); CREATININE 0.72 mg/dl (0.44-1.00); POTASSIUM 4.3 mmol/L (3.5-5.1)
[2017-06-15] MEDS: FOLIC ACID 1 MG TAB PO SCH (08:41)
[2017-06-15] MEDS: MAGNESIUM OXIDE 400 MG TAB PO SCH (08:41)
[2017-06-15] MEDS: LUBIPROSTONE 24 MCG CAP PO SCH ×2 (08:41→21:09)
[2017-06-15] MEDS: ATENOLOL 25 MG TAB PO SCH ×2 (08:41→21:10)
[2017-06-15] MEDS: MULTIVITAMINS THERAPEUTIC TAB PO SCH (08:41)
[2017-06-15] MEDS: LACTOBACILLUS RHAMNOSUS CAP PO SCH (08:41)
[2017-06-15] MEDS: POLYETHYLENE GLYCOL 17 GM PACKET PO SCH (08:41)
--- NOTE | 2017-06-15 10:30 | PN ---
Date/Time of Note Date/Time of Note DATE: 06/15/17 TIME: 10:28 Assessment/Plan VTE Prophylaxis VTE Prophylaxis Intervention: ambulation Lines/Catheters IV Catheter Type (from [facility]): [facility] Urinary Cath still in place: No Assessment/Plan Chief Complaint/Hosp Course 1. Muscle weakness 2. AFIB, controlled 3. HTN, controlled 4. ASHD 5. hyponatremia 6. recurrent UTI 7. LOW EF 8. Hx low platelets 9. Anemia 10. urinary incontinence 11. Constipation 12. Vit D deficiency 13. Muscle weakness 14 EDEMA 15 DYSPHAGIA Problems: Assessment/Plan 1. continue rehabilitation 2. Dr Hardin to titrate B blockers and antiarrhythmic. Subjective 24 Hr Interval Summary Cardiovascular: lightheadedness, palpitations Exam/Review of Systems Vital Signs Vitals Vital Signs Date Time Temp Pulse Resp B/P Pulse Ox O2 Delivery O2 Flow Rate FiO2 06/15/17 05:54 2.0 06/14/17 20:25 112 18 96 Nasal Cannula 06/14/17 19:32 98.7 108/61 Intake and Output 06/14/17 06/14/17 06/15/17 15:00 23:00 07:00 Intake Total 50 ml 320 ml Output Total 150 ml 150 ml Balance 50 ml 170 ml -150 ml Exam Constitutional: alert, oriented Head: normocephalic Respiratory: clear to auscultation Cardiovascular: irregular rhythm Gastrointestinal: soft Results Result Diagram: 06/15/17 0622 06/15/17 0622 Results 24 hrs Laboratory Tests Test 06/15/17 06:22 White Blood Count 6.7 # Red Blood Count 3.56 L Hemoglobin 10.5 L Hematocrit 31.1 L Mean Corpuscular Volume 87.4 Mean Corpuscular Hemoglobin 29.5 Mean Corpuscular Hemoglobin Concent 33.8 Red Cell Distribution Width 15.9 H Platelet Count 257 # Mean Platelet Volume 11.8 H Neutrophils % 61.0 Lymphocytes % 19.0 Monocytes % 14.8 H Eosinophils % 1.0 Basophils % 0.9 Nucleated Red Blood Cells % 0.0 Neutrophils # 4.1 Lymphocytes # 1.3 Monocytes # 1.0 H Eosinophils # 0.1 Basophils # 0.1 Nucleated Red Blood Cells # 0.0 Prothrombin Time 29.9 H Prothrombin Time Ratio 2.3 INR International Normalized Ratio 2.80 Sodium Level 135 Potassium Level 4.3 Chloride Level 96 L Carbon Dioxide Level 34 H Anion Gap 9 Blood Urea Nitrogen 21 H Creatinine 0.72 Glucose Level 68 L Calcium Level 7.4 L Medications Medications Current Medications Lubiprostone (Amitiza) 24 mcg BID PO Last administered on 06/15/17 08:41; Admin Dose 24 MCG; Start 06/08/17 at 22:49 Nitroglycerin (Nitroglycerin (Sl Tab) 0.4 Mg) 0.4 tab PRN SL ; Start 06/08/17 at 22:49 Pantoprazole (Protonix Tab) 40 mg DAILY@06 PO Last administered on 06/15/17 06 :28; Admin Dose 40 MG; Start 06/08/17 at 22:49 Acetaminophen (Tylenol Tab) 650 mg Q6H PRN PO PAIN AND OR ELEVATED TEMP Last administered on 06/13/17 01:26; Admin Dose 650 MG; Start 06/08/17 at 22:49 Magnesium Oxide (Mag-Ox 400) 400 mg DAILY PO Last administered on 06/15/17 08: 41; Admin Dose 400 MG; Start 06/08/17 at 22:49 Lactobacillus Acidophilus/ Rhamnosus (Culturelle) 1 cap DAILY PO Last administered on 06/15/17 08:41; Admin Dose 1 CAP; Start 06/08/17 at 22:49 Polyethylene Glycol (Miralax) 8.5 gm DAILY PO Last administered on 06/15/17 08 :41; Admin Dose 8.5 GM; Start 06/08/17 at 22:49 Diltiazem HCl (Cardizem) 30 mg Q8 PO Last administered on 06/15/17 06:29; Admin Dose 30 MG; Start 06/08/17 at 22:49 Bisacodyl (Dulcolax Supp) 10 mg Q48H PRN [place] CONSTIPATION Last administered on 21:31; Admin Dose 10 MG; Start 06/08/17 at 22:49 Multivitamins Therapeutic (Theragran) 1 tab DAILY PO Last administered on 08:41; Admin Dose 1 TAB; Start 06/08/17 at 22:49 Folic Acid (Folic Acid) 1 mg DAILY PO Last administered on 06/15/17 08:41; Admin Dose 1 MG; Start 06/08/17 at 22:49 Atorvastatin Calcium (Lipitor) 10 mg DAILY@21 PO Last administered on 20:46; Admin Dose 10 MG; Start 06/09/17 at 21:00 Ergocalciferol (Drisdol) 50,000 unit Sa@09 PO Last administered on 06/14/17 09 :17; Admin Dose 50,000 UNIT; Start 06/14/17 at 09:00 Warfarin Sodium (Coumadin) 1 mg DAILY@17 PO Last administered on 06/14/17 17: 36; Admin Dose 1 MG; Start 06/12/17 at 17:00 Atenolol (Tenormin) 12.5 mg BID PO Last administered on 06/14/17 20:46; Admin Dose 12.5 MG; Start 06/13/17 at 21:00 RENAY TRAN Jun 15, 2017 10:30
[2017-06-15] MEDS: LEVALBUTEROL (NEB) 0.63 MG/3 ML AMP HHN PRN (10:57)
--- NOTE | 2017-06-15 17:31 | CONS ---
Date/Time of Note Date/Time of Note DATE: 06/15/17 TIME: 17:29 Assessment/Plan Assessment/Plan Additional Assessment/Plan 1.tachycardia-? S Tach/PAF-overall improved when receives BB/CCB regimen [facility] [place] device - NOW TACH AGAIN, with CHECK EKG, hold lasix - might meme dehydrated 2.Hypotension-recurrent/? overdiuresis-impoved after IVF bolus - Rx as needed - HOLD LASIX NOW 3.AF-currently reasonable rate control - stable 4.Fevers/leukcytosis-increased significantly 5.TIA - better now 6.UTI - on anti-bx 7. coagulopathy-s/p Vitamin k and now again therapeutic - stable 8. L sided rib pain-positive TTP/resolved-negative troponin 9. 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 MVR 14. 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 Currently stable 15. CHF-systolic acute on chronic LVEF 40% by echo this admit 16. Pleural effusion s/p L thoracentesis Consultation Date/Type/Reason Admit Date/Time Jun 08, 2017 at 21:30 Type of Consultation: ID Referring Provider: DUANE NGUYỄN MD 24 HR Interval Summary Free Text/Dictation NOW TACH AGAIN, with CHECK EKG, hold lasix - might meme dehydrated ROS: No fever, no chills, no nausea, no vomiting, no diarrhea/constipation No recent weight changes No chest pain, no PND, no orthopnea No dizziness, blurred vision No thirst, no heat or cold intolerance Exam/Review of Systems Vital Signs Vitals Vital Signs Date Time Temp Pulse Resp B/P Pulse Ox O2 Delivery O2 Flow Rate FiO2 06/15/17 10:57 113 18 98 Nasal Cannula 2.0 06/14/17 19:32 98.7 108/61 Intake and Output 06/14/17 06/14/17 06/15/17 15:00 23:00 07:00 Intake Total 50 ml 320 ml Output Total 150 ml 150 ml Balance 50 ml 170 ml -150 ml Exam General: WN/WD/NAD, AOx 2-3 HEENT: Unicetric/atraumatic/EOMI (follow commands) NECK: JVD elevated, no thyromegaly Lymph: no lymphadenopathy HEART: regular with occ irreg no S3, II/ systolic murmur at apex, mech click LUNGS: Coarse sounds ABD: soft, NT, ND, +BS : Intact Neuro: s/p CVA SKIN: chronic changes EXT: trace edema Results Result Diagram: 06/15/1722 06/15/17 0622 Results 24 hrs Laboratory Tests Test 06/15/17 06:22 White Blood Count 6.7 # Red Blood Count 3.56 L Hemoglobin 10.5 L Hematocrit 31.1 L Mean Corpuscular Volume 87.4 Mean Corpuscular Hemoglobin 29.5 Mean Corpuscular Hemoglobin Concent 33.8 Red Cell Distribution Width 15.9 H Platelet Count 257 # Mean Platelet Volume 11.8 H Neutrophils % 61.0 Lymphocytes % 19.0 Monocytes % 14.8 H Eosinophils % 1.0 Basophils % 0.9 Nucleated Red Blood Cells % 0.0 Neutrophils # 4.1 Lymphocytes # 1.3 Monocytes # 1.0 H Eosinophils # 0.1 Basophils # 0.1 Nucleated Red Blood Cells # 0.0 Prothrombin Time 29.9 H Prothrombin Time Ratio 2.3 INR International Normalized Ratio 2.80 Sodium Level 135 Potassium Level 4.3 Chloride Level 96 L Carbon Dioxide Level 34 H Anion Gap 9 Blood Urea Nitrogen 21 H Creatinine 0.72 Glucose Level 68 L Calcium Level 7.4 L Medications Medications Current Medications Lubiprostone (Amitiza) 24 mcg BID PO Last administered on 06/15/17 08:41; Admin Dose 24 MCG; Start 06/08/17 at 22:49 Nitroglycerin (Nitroglycerin (Sl Tab) 0.4 Mg) 0.4 tab PRN SL ; Start 06/08/17 at 22:49 Pantoprazole (Protonix Tab) 40 mg DAILY@06 PO Last administered on 06/15/17 06 :28; Admin Dose 40 MG; Start 06/08/17 at 22:49 Acetaminophen (Tylenol Tab) 650 mg Q6H PRN PO PAIN AND OR ELEVATED TEMP Last administered on 06/13/17 01:26; Admin Dose 650 MG; Start 06/08/17 at 22:49 Magnesium Oxide (Mag-Ox 400) 400 mg DAILY PO Last administered on 06/15/17 08: 41; Admin Dose 400 MG; Start 06/08/17 at 22:49 Lactobacillus Acidophilus/ Rhamnosus (Culturelle) 1 cap DAILY PO Last administered on 06/15/17 08:41; Admin Dose 1 CAP; Start 06/08/17 at 22:49 Polyethylene Glycol (Miralax) 8.5 gm DAILY PO Last administered on 06/15/17 08 :41; Admin Dose 8.5 GM; Start 06/08/17 at 22:49 Diltiazem HCl (Cardizem) 30 mg Q8 PO Last administered on 06/15/17 10:27; Admin Dose 30 MG; Start 06/08/17 at 22:49 Bisacodyl (Dulcolax Supp) 10 mg Q48H PRN [place] CONSTIPATION Last administered on 21:31; Admin Dose 10 MG; Start 06/08/17 at 22:49 Multivitamins Therapeutic (Theragran) 1 tab DAILY PO Last administered on 08:41; Admin Dose 1 TAB; Start 06/08/17 at 22:49 Folic Acid (Folic Acid) 1 mg DAILY PO Last administered on 06/15/17 08:41; Admin Dose 1 MG; Start 06/08/17 at 22:49 Atorvastatin Calcium (Lipitor) 10 mg DAILY@21 PO Last administered on 20:46; Admin Dose 10 MG; Start 06/09/17 at 21:00 Ergocalciferol (Drisdol) 50,000 unit Sa@09 PO Last administered on 06/14/17 09 :17; Admin Dose 50,000 UNIT; Start 06/14/17 at 09:00 Warfarin Sodium (Coumadin) 1 mg DAILY@17 PO Last administered on 06/14/17 17: 36; Admin Dose 1 MG; Start 06/12/17 at 17:00 Atenolol (Tenormin) 12.5 mg BID PO Last administered on 06/14/17 20:46; Admin Dose 12.5 MG; Start 06/13/17 at 21:00 JESSA JUNG MD Jun 15, 2017 17:31
[2017-06-15] MEDS: WARFARIN 1 MG TAB PO SCH (17:57)
[2017-06-15 19:34] VITALS: BP 96/51; RESP 20
[2017-06-15] MEDS: ATORVASTATIN 10 MG TAB PO SCH (21:09)
[2017-06-15 21:30] VITALS: BP 103/61; PULSE 111
[2017-06-16 01:51] VITALS: BP 97/53; RESP 18
[2017-06-16] MEDS: PANTOPRAZOLE (EC) 40 MG TAB PO SCH (05:31)
[2017-06-16] MEDS: DILTIAZEM 30 MG TAB PO SCH ×3 (05:32→21:10)
[2017-06-16] MEDS: LEVOTHYROXINE 75 MCG TAB PO SCH (05:32)
[2017-06-16 07:30] VITALS: BP 112/59; RESP 20
[2017-06-16 07:57] LABS: INR 2.78; PROTIME 29.7 Sec (12.2-14.2); PT RATIO 2.3
[2017-06-16] MEDS: ATENOLOL 25 MG TAB PO SCH ×2 (09:00→21:00)
[2017-06-16] MEDS: LUBIPROSTONE 24 MCG CAP PO SCH ×2 (09:19→21:09)
[2017-06-16] MEDS: MULTIVITAMINS THERAPEUTIC TAB PO SCH (09:19)
[2017-06-16] MEDS: POLYETHYLENE GLYCOL 17 GM PACKET PO SCH (09:19)
[2017-06-16] MEDS: FOLIC ACID 1 MG TAB PO SCH (09:19)
[2017-06-16] MEDS: LACTOBACILLUS RHAMNOSUS CAP PO SCH (09:19)
[2017-06-16] MEDS: MAGNESIUM OXIDE 400 MG TAB PO SCH (09:19)
[2017-06-16 10:56] LABS: ADD UMIC NO; UR ASCORBIC ACID NEGATIVE (NEGATIVE); UR BILIRUBIN (Dip) NEGATIVE (NEGATIVE); UR BLOOD (Dip) NEGATIVE (NEGATIVE); UR CLARITY CLEAR (CLEAR); UR COLOR STRAW (YELLOW); UR GLUCOSE (Dip) NEGATIVE (NEGATIVE); UR KETONES (Dip) NEGATIVE (NEGATIVE); UR LEUKOCYTE ESTERASE (Dip) NEGATIVE Leu/ul (NEGATIVE); UR NITRITE (Dip) NEGATIVE (NEGATIVE); UR SPECIFIC GRAVITY (Dip) 1.004 (1.003-1.030); UR TOTAL PROTEIN (Dip) NEGATIVE (NEGATIVE); UR UROBILINOGEN (Dip) NEGATIVE (NEGATIVE)
--- NOTE | 2017-06-16 13:00 | CONS ---
Date/Time of Note Date/Time of Note DATE: 06/16/17 TIME: 12:59 Consult Date/Type/Reason Admit Date/Time Jun 08, 2017 at 21:30 Type of Consultation: ID Ordering Provider: DUANE NGUYỄN MD Objective Vital Signs Date Time Temp Pulse Resp B/P Pulse Ox O2 Delivery O2 Flow Rate FiO2 06/16/17 07:30 98.9 79 20 112/59 96 06/16/17 00:38 2.0 06/15/17 21:25 Nasal Cannula Intake and Output 06/15/17 06/15/17 06/16/17 14:59 22:59 06:59 Intake Total 240 ml Output Total 150 ml 150 ml Balance -150 ml 90 ml INTERDISCIPLINARY TEAM CONFERENCE BOWEL- Cont BLADDER-Cont SKIN- improving sacral decub OT- DRESSING-min/mod BATHING-min/mod TOILETING-min/mod PT- BED MOBILITY-min/mod TRANSFERS-min/mod AMBULATION-mod 20 feet SPEECH- COGNITION-min DYPHAGIA-mech soft with thin A/P- Interdisciplinary team conference held today. Please see interdisciplinary sheet. Working toward d.c. on 06/27 with post discharge follow up of physical therapy, occupational therapy. Results/Medications Result Diagram: 06/15/1722 06/15/17 0622 Results 24 hrs Laboratory Tests Test 06/16/17 06:16 Prothrombin Time 29.7 H Prothrombin Time Ratio 2.3 INR International Normalized Ratio 2.78 Medications Current Medications Lubiprostone (Amitiza) 24 mcg BID PO Last administered on 06/16/17 09:19; Admin Dose 24 MCG; Start 06/08/17 at 22:49 Nitroglycerin (Nitroglycerin (Sl Tab) 0.4 Mg) 0.4 tab PRN SL ; Start 06/08/17 at 22:49 Pantoprazole (Protonix Tab) 40 mg DAILY@06 PO Last administered on 06/16/17 05 :31; Admin Dose 40 MG; Start 06/08/17 at 22:49 Acetaminophen (Tylenol Tab) 650 mg Q6H PRN PO PAIN AND OR ELEVATED TEMP Last administered on 06/13/17 01:26; Admin Dose 650 MG; Start 06/08/17 at 22:49 Magnesium Oxide (Mag-Ox 400) 400 mg DAILY PO Last administered on 06/16/17 09: 19; Admin Dose 400 MG; Start 06/08/17 at 22:49 Lactobacillus Acidophilus/ Rhamnosus (Culturelle) 1 cap DAILY PO Last administered on 06/16/17 09:19; Admin Dose 1 CAP; Start 06/08/17 at 22:49 Polyethylene Glycol (Miralax) 8.5 gm DAILY PO Last administered on 06/16/17 09 :19; Admin Dose 8.5 GM; Start 06/08/17 at 22:49 Diltiazem HCl (Cardizem) 30 mg Q8 PO Last administered on 06/16/17 05:32; Admin Dose 30 MG; Start 06/08/17 at 22:49 Bisacodyl (Dulcolax Supp) 10 mg Q48H PRN [place] CONSTIPATION Last administered on 21:31; Admin Dose 10 MG; Start 06/08/17 at 22:49 Multivitamins Therapeutic (Theragran) 1 tab DAILY PO Last administered on 09:19; Admin Dose 1 TAB; Start 06/08/17 at 22:49 Folic Acid (Folic Acid) 1 mg DAILY PO Last administered on 06/16/17 09:19; Admin Dose 1 MG; Start 06/08/17 at 22:49 Atorvastatin Calcium (Lipitor) 10 mg DAILY@21 PO Last administered on 21:09; Admin Dose 10 MG; Start 06/09/17 at 21:00 Ergocalciferol (Drisdol) 50,000 unit Sa@09 PO Last administered on 06/14/17 09 :17; Admin Dose 50,000 UNIT; Start 06/14/17 at 09:00 Warfarin Sodium (Coumadin) 1 mg DAILY@17 PO Last administered on 06/15/17 17: 57; Admin Dose 1 MG; Start 06/12/17 at 17:00; Status Future Hold Atenolol (Tenormin) 12.5 mg BID PO Last administered on 06/15/17 21:10; Admin Dose 12.5 MG; Start 06/13/17 at 21:00 Warfarin Sodium (Coumadin) 2 mg DAILY@17 PO ; Start 06/16/17 at 17:00 ROBY RANGEL MD Jun 16, 2017 13:00
--- NOTE | 2017-06-16 13:22 | CONS ---
Date/Time of Note Date/Time of Note DATE: 06/16/17 TIME: 13:20 Assessment/Plan Assessment/Plan Chief Complaint/Hosp Course IMP: 1.tachycardia-? S Tach/PAF-overall improved when receives BB/CCB regimen [facility] [place] device 2.Hypotension-recurrent/? Still hacing BB/CCB held at times but good rate control 3.AF-currently reasonable rate control 4.Fevers/leukcytosis-increased significantly 5. TIA 6.UTI 7. coagulopathy-s/p Vitamin k and now again therapeutic 8. L sided rib pain-positive TTP/resolved-negative troponin 9. 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 MVR 14. Episode of AMS and LEGAL ENTITY CONTROLLER thought to be due to possible CVA-head CT negative. Currently stable 15. CHF-systolic acute on chronic LVEF 40% by echo this admit 16. Pleural effusion s/p L thoracentesis Recc: -Now transferred to rehab -Continue BB/CCB as tolerated which were partially held due to patient having swallow eval -Continue abx's and f/u cx data -Continue Coumadin and f/u INR closely -PT/OT as tolerated Problems: Consultation Date/Type/Reason Admit Date/Time Jun 08, 2017 at 21:30 Initial Consult Date 06/08/2017 Type of Consultation: cardiology Reason for Consultation tachycardia Referring Provider: DUANE NGUYỄN MD Exam/Review of Systems Vital Signs Vitals Vital Signs Date Time Temp Pulse Resp B/P Pulse Ox O2 Delivery O2 Flow Rate FiO2 06/16/17 07:30 98.9 79 20 112/59 96 06/16/17 00:38 2.0 06/15/17 21:25 Nasal Cannula Intake and Output 06/15/17 06/15/17 06/16/17 15:00 23:00 07:00 Intake Total 240 ml Output Total 150 ml 150 ml Balance -150 ml 90 ml Exam Review of Systems: CONSTITUTIONAL: No fevers, chills. PULMONARY: No sob CARDIOVASCULAR: No chest pain/palpitations GASTROINTESTINAL: No nausea/vomiting. GENITOURINARY: No hematuria/dysuria. MUSCULOSKELETAL: No myagias/arthalgias. PSYCHIATRIC: The patient denies depression. NEUROLOGIC: No weakness Constitutional: alert Psych: no complaints Head: normocephalic ENMT: mucosa pink and moist Neck: jvd, supple Cardiovascular: regular rate and rhythm Gastrointestinal: non-tender, soft Musculoskeletal: muscle tone (normal) Extremities: edema (none) Neurological: lethargic Results Result Diagram: 06/15/1762106/15/17 0622 Results 24 hrs Laboratory Tests Test 06/16/17 06:16 Prothrombin Time 29.7 H Prothrombin Time Ratio 2.3 INR International Normalized Ratio 2.78 Medications Medications Current Medications Lubiprostone (Amitiza) 24 mcg BID PO Last administered on 06/16/17 09:19; Admin Dose 24 MCG; Start 06/08/17 at 22:49 Nitroglycerin (Nitroglycerin (Sl Tab) 0.4 Mg) 0.4 tab PRN SL ; Start 06/08/17 at 22:49 Pantoprazole (Protonix Tab) 40 mg DAILY@06 PO Last administered on 06/16/17 05 :31; Admin Dose 40 MG; Start 06/08/17 at 22:49 Acetaminophen (Tylenol Tab) 650 mg Q6H PRN PO PAIN AND OR ELEVATED TEMP Last administered on 06/13/17 01:26; Admin Dose 650 MG; Start 06/08/17 at 22:49 Magnesium Oxide (Mag-Ox 400) 400 mg DAILY PO Last administered on 06/16/17 09: 19; Admin Dose 400 MG; Start 06/08/17 at 22:49 Lactobacillus Acidophilus/ Rhamnosus (Culturelle) 1 cap DAILY PO Last administered on 06/16/17 09:19; Admin Dose 1 CAP; Start 06/08/17 at 22:49 Polyethylene Glycol (Miralax) 8.5 gm DAILY PO Last administered on 06/16/17 09 :19; Admin Dose 8.5 GM; Start 06/08/17 at 22:49 Diltiazem HCl (Cardizem) 30 mg Q8 PO Last administered on 06/16/17 05:32; Admin Dose 30 MG; Start 06/08/17 at 22:49 Bisacodyl (Dulcolax Supp) 10 mg Q48H PRN [place] CONSTIPATION Last administered on 21:31; Admin Dose 10 MG; Start 06/08/17 at 22:49 Multivitamins Therapeutic (Theragran) 1 tab DAILY PO Last administered on 09:19; Admin Dose 1 TAB; Start 06/08/17 at 22:49 Folic Acid (Folic Acid) 1 mg DAILY PO Last administered on 06/16/17 09:19; Admin Dose 1 MG; Start 06/08/17 at 22:49 Atorvastatin Calcium (Lipitor) 10 mg DAILY@21 PO Last administered on 21:09; Admin Dose 10 MG; Start 06/09/17 at 21:00 Ergocalciferol (Drisdol) 50,000 unit Sa@09 PO Last administered on 06/14/17 09 :17; Admin Dose 50,000 UNIT; Start 06/14/17 at 09:00 Warfarin Sodium (Coumadin) 1 mg DAILY@17 PO Last administered on 06/15/17 17: 57; Admin Dose 1 MG; Start 06/12/17 at 17:00; Status Future Hold Atenolol (Tenormin) 12.5 mg BID PO Last administered on 06/15/17 21:10; Admin Dose 12.5 MG; Start 06/13/17 at 21:00 Warfarin Sodium (Coumadin) 2 mg DAILY@17 PO ; Start 06/16/17 at 17:00 PLACIDO COREA Jun 16, 2017 13:22
[2017-06-16 14:12] LABS: ADD UMIC YES; UR ASCORBIC ACID NEGATIVE (NEGATIVE); UR BILIRUBIN (Dip) NEGATIVE (NEGATIVE); UR BLOOD (Dip) NEGATIVE (NEGATIVE); UR CLARITY SLIGHTLY CLOUDY (CLEAR); UR COLOR YELLOW (YELLOW); UR GLUCOSE (Dip) NEGATIVE (NEGATIVE); UR KETONES (Dip) NEGATIVE (NEGATIVE); UR LEUKOCYTE ESTERASE (Dip) NEGATIVE Leu/ul (NEGATIVE); UR NITRITE (Dip) NEGATIVE (NEGATIVE); UR RBC 1 /HPF (0-5); UR SPECIFIC GRAVITY (Dip) 1.016 (1.003-1.030); UR TOTAL PROTEIN (Dip) 1+ mg/dl (NEGATIVE); UR UROBILINOGEN (Dip) 1+ mg/dL (NEGATIVE)
--- NOTE | 2017-06-16 14:22 | RADRPT ---
Vent Rate: 93 bpm RR Interval: 0 msec UT Interval: 0 msec QRS Duration: 130 msec QT Interval: 348 msec QTC Interval: 432 msec P-R-T Parks: 106 - -67 - 28 degrees Demand pacemaker, interpretation is based on intrinsic rhythm Atrial flutter with variable AV block with premature ventricular or aberrantly conducted complexes Right bundle branch block Left anterior fascicular block Bifascicular block Cannot rule out Inferior infarct , age undetermined Abnormal ECG Electronically Signed By: Fabien Rodriguez [id number]
--- NOTE | 2017-06-16 15:20 | CONS ---
Date/Time of Note Date/Time of Note DATE: 06/16/17 TIME: 15:18 Assessment/Plan Assessment/Plan Chief Complaint/Hosp Course 76 yo female on Coumadin admitted for TIA, who was found to have partial thrombosis of internal jugular vein. # Thrombosis while on Coumadin - Given that patient has a prosthetic mitral valve, her anticoagulation options are limited to Coumadin but this was on hold because of supratherapeutic INR. Especially since this (IJ clot) is a relatively asymptomatic partial thrombosis, I do not think we need to change anticoagulation at this time. - I would recommend to keep the INR between 2.5-3.5. Given INR was >4 and urology concern for perinephric bleed. INR currently at 2.7 and dropping. Spoke with Pharmacist. will increase to Coumadin at 2 mg q day. - fondaparinox can be stopped. HIT screen negative. - Repeat renal US 06/04/17 showed 1. Mild left hydronephrosis. 2. Otherwise normal renal ultrasound. hgb is fairly stable ~11-12 and will follow # UTI -continue antibiotics #Ischemic Cardiomyopathy -management per cardiology Problems: Consultation Date/Type/Reason Admit Date/Time Jun 08, 2017 at 21:30 Initial Consult Date May 29, 2017 Type of Consultation: Hematology Reason for Consultation coagulopathy Referring Provider: DUANE NGUYỄN MD 24 HR Interval Summary Free Text/Dictation patient continues to ambulate. left sided weakness improving Exam/Review of Systems Vital Signs Vitals Vital Signs Date Time Temp Pulse Resp B/P Pulse Ox O2 Delivery O2 Flow Rate FiO2 06/16/17 07:30 98.9 79 20 112/59 96 06/16/17 00:38 2.0 06/15/17 21:25 Nasal Cannula Intake and Output 06/15/17 06/15/17 06/16/17 15:00 23:00 07:00 Intake Total 240 ml Output Total 150 ml 150 ml Balance -150 ml 90 ml Exam Constitutional: alert, oriented Psych: nl mood/affect, no complaints Head: normocephalic Eyes: nl conjunctiva ENMT: nl external ears & nose, nl lips & teeth Neck: non-tender, supple Respiratory: clear to auscultation Cardiovascular: nl pulses, regular rate and rhythm Gastrointestinal: soft Musculoskeletal: nl extremities to inspection, nl gait and stance Extremities: normal pulses Results Result Diagram: 06/15/1762106/15/17 06 Results 24 hrs Laboratory Tests Test 06/16/17 06:16 06/16/17 13:30 Prothrombin Time 29.7 H Prothrombin Time Ratio 2.3 INR International Normalized Ratio 2.78 Urine Color YELLOW Urine Clarity SLIGHTLY CLOUDY A Urine pH 7.0 Urine Specific [place] 1.016 Urine Ketones NEGATIVE Urine Nitrite NEGATIVE Urine Bilirubin NEGATIVE Urine Urobilinogen 1+ H Urine Leukocyte Esterase NEGATIVE Urine Microscopic RBC 1 Urine Microscopic WBC 2 Urine Hemoglobin NEGATIVE Urine Glucose NEGATIVE Urine Total Protein 1+ H Medications Medications Current Medications Lubiprostone (Amitiza) 24 mcg BID PO Last administered on 06/16/17 09:19; Admin Dose 24 MCG; Start 06/08/17 at 22:49 Nitroglycerin (Nitroglycerin (Sl Tab) 0.4 Mg) 0.4 tab PRN SL ; Start 06/08/17 at 22:49 Pantoprazole (Protonix Tab) 40 mg DAILY@06 PO Last administered on 06/16/17 05 :31; Admin Dose 40 MG; Start 06/08/17 at 22:49 Acetaminophen (Tylenol Tab) 650 mg Q6H PRN PO PAIN AND OR ELEVATED TEMP Last administered on 06/13/17 01:26; Admin Dose 650 MG; Start 06/08/17 at 22:49 Magnesium Oxide (Mag-Ox 400) 400 mg DAILY PO Last administered on 06/16/17 09: 19; Admin Dose 400 MG; Start 06/08/17 at 22:49 Lactobacillus Acidophilus/ Rhamnosus (Culturelle) 1 cap DAILY PO Last administered on 06/16/17 09:19; Admin Dose 1 CAP; Start 06/08/17 at 22:49 Polyethylene Glycol (Miralax) 8.5 gm DAILY PO Last administered on 06/16/17 09 :19; Admin Dose 8.5 GM; Start 06/08/17 at 22:49 Diltiazem HCl (Cardizem) 30 mg Q8 PO Last administered on 06/16/17 14:56; Admin Dose 30 MG; Start 06/08/17 at 22:49 Bisacodyl (Dulcolax Supp) 10 mg Q48H PRN [place] CONSTIPATION Last administered on 21:31; Admin Dose 10 MG; Start 06/08/17 at 22:49 Multivitamins Therapeutic (Theragran) 1 tab DAILY PO Last administered on 09:19; Admin Dose 1 TAB; Start 06/08/17 at 22:49 Folic Acid (Folic Acid) 1 mg DAILY PO Last administered on 06/16/17 09:19; Admin Dose 1 MG; Start 06/08/17 at 22:49 Atorvastatin Calcium (Lipitor) 10 mg DAILY@21 PO Last administered on 21:09; Admin Dose 10 MG; Start 06/09/17 at 21:00 Ergocalciferol (Drisdol) 50,000 unit Sa@09 PO Last administered on 06/14/17 09 :17; Admin Dose 50,000 UNIT; Start 06/14/17 at 09:00 Warfarin Sodium (Coumadin) 1 mg DAILY@17 PO Last administered on 06/15/17 17: 57; Admin Dose 1 MG; Start 06/12/17 at 17:00; Status Future Hold Atenolol (Tenormin) 12.5 mg BID PO Last administered on 06/15/17 21:10; Admin Dose 12.5 MG; Start 06/13/17 at 21:00 Warfarin Sodium (Coumadin) 2 mg DAILY@17 PO ; Start 06/16/17 at 17:00 NATACHA SALAMANCA M.D. Jun 16, 2017 15:20
[2017-06-16] MEDS: WARFARIN 2 MG TAB PO SCH (16:54)
--- NOTE | 2017-06-16 17:40 | PN ---
Date/Time of Note Date/Time of Note DATE: 06/16/17 TIME: 17:38 Assessment/Plan VTE Prophylaxis VTE Prophylaxis Intervention: other Lines/Catheters IV Catheter Type (from [facility]): [place] Urinary Cath still in place: No Assessment/Plan Chief Complaint/Hosp Course 1. SEPSIS resolving 2. AFIB, controlled 3. HTN, controlled 4. ASHD 5. hyponatremia 6. recurrent UTI 7. LOW EF 8. low platelets HX 9. Anemia 10. urinary incontinence 11. Constipation 12. Vit d deficiency 13. Muscle weakness 14 EDEMA 15 DYSPHAGIA BETTER PLAN PT OT Problems: Subjective 24 Hr Interval Summary Respiratory: shortness of breath (BETTER) Cardiovascular: no complaints Gastrointestinal: no complaints Musculoskeletal: no complaints Exam/Review of Systems Vital Signs Vitals Vital Signs Date Time Temp Pulse Resp B/P Pulse Ox O2 Delivery O2 Flow Rate FiO2 06/16/17 07:30 98.9 79 20 112/59 96 06/16/17 00:38 2.0 06/15/17 21:25 Nasal Cannula Intake and Output 06/15/17 06/15/17 06/16/17 15:00 23:00 07:00 Intake Total 240 ml Output Total 150 ml 150 ml Balance -150 ml 90 ml Exam Neck: supple Respiratory: clear to auscultation Cardiovascular: regular rate and rhythm Gastrointestinal: soft Musculoskeletal: nl extremities to inspection Extremities: normal pulses Results Result Diagram: 06/15/1722 06/15/17 0622 Results 24 hrs Laboratory Tests Test 06/16/17 06:16 06/16/17 13:30 Prothrombin Time 29.7 H Prothrombin Time Ratio 2.3 INR International Normalized Ratio 2.78 Urine Color YELLOW Urine Clarity SLIGHTLY CLOUDY A Urine pH 7.0 Urine Specific [place] 1.016 Urine Ketones NEGATIVE Urine Nitrite NEGATIVE Urine Bilirubin NEGATIVE Urine Urobilinogen 1+ H Urine Leukocyte Esterase NEGATIVE Urine Microscopic RBC 1 Urine Microscopic WBC 2 Urine Hemoglobin NEGATIVE Urine Glucose NEGATIVE Urine Total Protein 1+ H Medications Medications Current Medications Lubiprostone (Amitiza) 24 mcg BID PO Last administered on 06/16/17t 09:19; Admin Dose 24 MCG; Start 06/08/17 at 22:49 Nitroglycerin (Nitroglycerin (Sl Tab) 0.4 Mg) 0.4 tab PRN SL ; Start 06/08/17 at 22:49 Pantoprazole (Protonix Tab) 40 mg DAILY@06 PO Last administered on 06/16/17 05 :31; Admin Dose 40 MG; Start 06/08/17 at 22:49 Acetaminophen (Tylenol Tab) 650 mg Q6H PRN PO PAIN AND OR ELEVATED TEMP Last administered on 06/13/17 01:26; Admin Dose 650 MG; Start 06/08/17 at 22:49 Magnesium Oxide (Mag-Ox 400) 400 mg DAILY PO Last administered on 06/16/17 09: 19; Admin Dose 400 MG; Start 06/08/17 at 22:49 Lactobacillus Acidophilus/ Rhamnosus (Culturelle) 1 cap DAILY PO Last administered on 06/16/17 09:19; Admin Dose 1 CAP; Start 06/08/17 at 22:49 Polyethylene Glycol (Miralax) 8.5 gm DAILY PO Last administered on 06/16/17 09 :19; Admin Dose 8.5 GM; Start 06/08/17 at 22:49 Diltiazem HCl (Cardizem) 30 mg Q8 PO Last administered on 06/16/17 14:56; Admin Dose 30 MG; Start 06/08/17 at 22:49 Bisacodyl (Dulcolax Supp) 10 mg Q48H PRN [place] CONSTIPATION Last administered on 21:31; Admin Dose 10 MG; Start 06/08/17 at 22:49 Multivitamins Therapeutic (Theragran) 1 tab DAILY PO Last administered on 09:19; Admin Dose 1 TAB; Start 06/08/17 at 22:49 Folic Acid (Folic Acid) 1 mg DAILY PO Last administered on 06/16/17 09:19; Admin Dose 1 MG; Start 06/08/17 at 22:49 Atorvastatin Calcium (Lipitor) 10 mg DAILY@21 PO Last administered on 21:09; Admin Dose 10 MG; Start 06/09/17 at 21:00 Ergocalciferol (Drisdol) 50,000 unit Sa@09 PO Last administered on 06/14/17 09 :17; Admin Dose 50,000 UNIT; Start 06/14/17 at 09:00 Warfarin Sodium (Coumadin) 1 mg DAILY@17 PO Last administered on 06/15/17 17: 57; Admin Dose 1 MG; Start 06/12/17 at 17:00; Status Future Hold Atenolol (Tenormin) 12.5 mg BID PO Last administered on 06/15/17 21:10; Admin Dose 12.5 MG; Start 06/13/17 at 21:00 Warfarin Sodium (Coumadin) 2 mg DAILY@17 PO Last administered on 06/16/17 16: 54; Admin Dose 2 MG; Start 06/16/17 at 17:00 DUANE NGUYỄN MD Jun 16, 2017 17:40
[2017-06-16 20:00] VITALS: BP_SYST 103; BP_SYST 104; BP_DIAS 52; BP_DIAS 60; RESP 18
[2017-06-16] MEDS: ATORVASTATIN 10 MG TAB PO SCH (21:09)
[2017-06-17 02:00] VITALS: BP_SYST 103; BP_SYST 104; BP_DIAS 52; BP_DIAS 60; RESP 18
[2017-06-17] MEDS: DILTIAZEM 30 MG TAB PO SCH ×3 (06:37→22:00)
[2017-06-17] MEDS: LEVOTHYROXINE 75 MCG TAB PO SCH (06:37)
[2017-06-17] MEDS: PANTOPRAZOLE (EC) 40 MG TAB PO SCH (06:37)
[2017-06-17 06:51] LABS: INR 2.21; PROTIME 24.8 Sec (12.2-14.2); PT RATIO 1.9
[2017-06-17 07:38] VITALS: BP 124/59; RESP 18
--- NOTE | 2017-06-17 08:32 | CONS ---
DATE OF ADMISSION: 06/08/2017 DATE OF CONSULTATION: 06/09/2017 Internal Medicine Consultation HISTORY OF PRESENT ILLNESS: The patient is a 76-year-old female who was admitted to [facility] with a diagnosis of sepsis, atrial fibrillation, atherosclerotic heart disease, a UTI, low ejection fraction. The patient received antibiotic and diuretic. Patient was seen by Dr Rodriguez in consultation, and patient had a cardiac tachycardia, sounds like ventricular tachycardia. The patient has a history of pacemaker placement. Patient also has a history of fever, leukocytosis. The patient HAS possible TIA symptoms _ [facility]. The patient was seen by Dr SOARES and Dr Salguero in consultation as well as Dr GUTHRIE consultation for patient's sepsis. Patient noted to have_ collection of fluid. Dr was called to see this patient in consultation. His recommendation was to follow up closely by the golf tournament consultant. Patient's diagnoses include during this hospitalization lung atelectasis, pleural effusions. The patient had thoracentesis, pulmonary edema, cardiomegaly, mitral valve replacement, left- sided biventricular permanent pacemaker placement, calcification, small right pleural effusion, moderate left pleural effusion status post thoracentesis, history of cholecystectomy, status post splenectomy, abnormal appearance of the pancreas, large fluid collection surrounding the left kidney and gaseous distention of the stomach, DJD, fracture of the right inferior pubic ramus, old compression fracture of L L5. Patient has severe deconditioning, will require acute rehab. Urine shows Nina albicans. Blood culture bacillus species positive. PAST MEDICAL HISTORY: At the time of transfer includes sepsis with resolving leukocytosis, left kidney hematoma versus abscess versus fluid, left effusion status post thoracentesis, bacteremia, UTI, history of mitral valve replacement, history of pacemaker placement, history of _. ALLERGIES: PENICILLIN. ASPIRIN. HEPARIN. SOCIAL HISTORY: Negative MEDICATION HISTORY: 1. Meropenem. 2. Tylenol. 3. Atenolol. 4. Lipitor. 5. STATIN. 6. Diflucan. 7. Folic acid. 8. Nasonex. 9. Lactobacillus. 10. Xopenex. 11. Levothyroxin. 12. THYROID MEDS. 13. ZIND oxide. 14. Multiple vitamins. 15. MVI 16. Protonix. 17. MiraLax. 18. Coumadin. . REVIEW OF SYSTEMS: HEENT:_ unremarkable. PHYSICAL EXAMINATION: VITAL SIGNS: Pulse 71, blood pressure 190/76. HEENT: Head is atraumatic. Pale conjunctivae. NECK: Supple. LUNGS: Rhonchi noted. HEART: S1S2 NL click noted. ABDOMEN: Soft, nontender. Bowel sounds +,NONTENDER_. EXTREMITIES: No cyanosis, clubbing, or edema. LINE PALLETIZER: The patient is awake, alert. No deficit today. LABORATORY: . Sodium_. IMPRESSION: 1. Resolving sepsis. 2. Urinary tract infection (UTI) bacillus bacteremia. 3. Status post left pleural effusion and thoracentesis, exudative effusion pneumonia. 4. LeUCOCYTOASIS. 5. Congestive heart failure (CHF). 6. PNEUMONIA infection. 7. Atherosclerotic heart disease. 8. DVT 9. Mitral valve replacement. PLAN: The plan is to continue current treatment. Pt and OT orders were done. Dictated By: Librado Espinal MD /bj/seun /Document#: [id number] MTDD
[2017-06-17] MEDS: POLYETHYLENE GLYCOL 17 GM PACKET PO SCH (09:01)
[2017-06-17] MEDS: MULTIVITAMINS THERAPEUTIC TAB PO SCH (09:01)
[2017-06-17] MEDS: LUBIPROSTONE 24 MCG CAP PO SCH ×2 (09:03→20:23)
[2017-06-17] MEDS: LACTOBACILLUS RHAMNOSUS CAP PO SCH (09:03)
[2017-06-17] MEDS: ATENOLOL 25 MG TAB PO SCH ×2 (09:03→20:23)
[2017-06-17] MEDS: FOLIC ACID 1 MG TAB PO SCH (09:03)
[2017-06-17] MEDS: MAGNESIUM OXIDE 400 MG TAB PO SCH (09:03)
--- NOTE | 2017-06-17 11:28 | CONS ---
Date/Time of Note Date/Time of Note DATE: 06/17/17 TIME: 11:26 Assessment/Plan Assessment/Plan Additional Assessment/Plan 1.tachycardia-? S Tach/PAF-overall improved when receives BB/CCB regimen [facility] [place] device - stable VS, con't rehab now 2.Hypotension-recurrent/? Still hacing BB/CCB held at times but good rate control 3.AF-currently reasonable rate control - good range now 4.Fevers/leukcytosis-increased significantly 5. TIA - recovering 6.UTI 7. coagulopathy-s/p Vitamin k and now again therapeutic - better no w 8. L sided rib pain-positive TTP/resolved-negative troponin 9. 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 MVR 14. Episode of AMS and PIECE HAND thought to be due to possible CVA-head CT negative. Currently stable 15. CHF-systolic acute on chronic LVEF 40% by echo this admit 16. Pleural effusion s/p L thoracentesis Consultation Date/Type/Reason Admit Date/Time Jun 08, 2017 at 21:30 Type of Consultation: Hematology Referring Provider: DUANE NGUYỄN MD 24 HR Interval Summary Free Text/Dictation NO acute change - complaint with rehab ROS: No fever, no chills, no nausea, no vomiting, no diarrhea/constipation No recent weight changes No chest pain, no PND, no orthopnea No dizziness, blurred vision No thirst, no heat or cold intolerance Exam/Review of Systems Vital Signs Vitals Vital Signs Date Time Temp Pulse Resp B/P Pulse Ox O2 Delivery O2 Flow Rate FiO2 06/17/17 07:38 98.5 75 18 124/59 95 06/16/17 20:30 Nasal Cannula 2.0 Intake and Output 06/16/17 06/16/17 06/17/17 15:00 23:00 07:00 Intake Total 420 ml 480 ml Output Total 1 ml 850 ml Balance -1 ml 420 ml -370 ml Exam General: WN/WD/NAD, AOx 3 HEENT: Unicetric/atraumatic/EOMI (follow commands) NECK: JVD elevated, no thyromegaly Lymph: no lymphadenopathy HEART: regular with no S3, II/ systolic murmur at apex LUNGS: Coarse sounds ABD: soft, NT, ND, +BS : Intact Neuro: post CVA SKIN: chronic changes EXT: trace edema Results Result Diagram: 06/15/17 0622 06/15/17 0622 Results 24 hrs Laboratory Tests Test 06/16/17 13:30 06/17/17 06:21 Urine Color YELLOW Urine Clarity SLIGHTLY CLOUDY A Urine pH 7.0 Urine Specific [place] 1.016 Urine Ketones NEGATIVE Urine Nitrite NEGATIVE Urine Bilirubin NEGATIVE Urine Urobilinogen 1+ H Urine Leukocyte Esterase NEGATIVE Urine Microscopic RBC 1 Urine Microscopic WBC 2 Urine Hemoglobin NEGATIVE Urine Glucose NEGATIVE Urine Total Protein 1+ H Prothrombin Time 24.8 H Prothrombin Time Ratio 1.9 INR International Normalized Ratio 2.21 Medications Medications Current Medications Lubiprostone (Amitiza) 24 mcg BID PO Last administered on 06/17/17 09:03; Admin Dose 24 MCG; Start 06/08/17 at 22:49 Nitroglycerin (Nitroglycerin (Sl Tab) 0.4 Mg) 0.4 tab PRN SL ; Start 06/08/17 at 22:49 Pantoprazole (Protonix Tab) 40 mg DAILY@06 PO Last administered on 06/17/17 06: 37; Admin Dose 40 MG; Start 06/08/17 at 22:49 Acetaminophen (Tylenol Tab) 650 mg Q6H PRN PO PAIN AND OR ELEVATED TEMP Last administered on 06/13/17 01:26; Admin Dose 650 MG; Start 06/08/17 at 22:49 Magnesium Oxide (Mag-Ox 400) 400 mg DAILY PO Last administered on 06/17/17 09: 03; Admin Dose 400 MG; Start 06/08/17 at 22:49 Lactobacillus Acidophilus/ Rhamnosus (Culturelle) 1 cap DAILY PO Last administered on 06/17/17 09:03; Admin Dose 1 CAP; Start 06/08/17 at 22:49 Polyethylene Glycol (Miralax) 8.5 gm DAILY PO Last administered on 06/17/17 09: 01; Admin Dose 8.5 GM; Start 06/08/17 at 22:49 Diltiazem HCl (Cardizem) 30 mg Q8 PO Last administered on 06/17/17 06:37; Admin Dose 30 MG; Start 06/08/17 at 22:49 Bisacodyl (Dulcolax Supp) 10 mg Q48H PRN [place] CONSTIPATION Last administered on 21:31; Admin Dose 10 MG; Start 06/08/17 at 22:49 Multivitamins Therapeutic (Theragran) 1 tab DAILY PO Last administered on 09:01; Admin Dose 1 TAB; Start 06/08/17 at 22:49 Folic Acid (Folic Acid) 1 mg DAILY PO Last administered on 06/17/17 09:03; Admin Dose 1 MG; Start 06/08/17 at 22:49 Atorvastatin Calcium (Lipitor) 10 mg DAILY@21 PO Last administered on 21:09; Admin Dose 10 MG; Start 06/09/17 at 21:00 Ergocalciferol (Drisdol) 50,000 unit Sa@09 PO Last administered on 06/14/17 09 :17; Admin Dose 50,000 UNIT; Start 06/14/17 at 09:00 Warfarin Sodium (Coumadin) 1 mg DAILY@17 PO Last administered on 06/15/17 17: 57; Admin Dose 1 MG; Start 06/12/17 at 17:00; Status Future Hold Atenolol (Tenormin) 12.5 mg BID PO Last administered on 06/17/17 09:03; Admin Dose 12.5 MG; Start 06/13/17 at 21:00 Warfarin Sodium (Coumadin) 2 mg DAILY@17 PO Last administered on 06/16/17 16: 54; Admin Dose 2 MG; Start 06/16/17 at 17:00 JESSA JUNG MD Jun 17, 2017 11:28
--- NOTE | 2017-06-17 11:48 | HKNOTE ---
DATE OF SERVICE: Patient is a 76-year-old with decreased mini mental status, underlying sepsis, encephalopathy, bacteremia, left lung atelectasis, coronary artery disease, pacemaker, chronic pancreatitis, TIA. PHYSICAL EXAMINATION: GENERAL: Patient is awake, alert, oriented. Following simple commands. HEART: Regular rate and rhythm. LUNGS: Equal breath sounds. ABDOMEN: Soft, relaxed, nondistended, nontender. NEUROLOGIC: CRANIAL NERVES: Cranial nerve II: Pupils equal on both sides, reactive to light. Cranial nerves II, IV and : Extraocular muscles intact. Cranial nerve V: Equal sensation to face. Cranial nerve VII: Symmetrical face. Cranial nerve VIII: Decreased hearing bilaterally. Cranial nerves IX and X: Elevates palate. Cranial nerve XI: Elevates shoulder 5/5. Cranial nerve XII: With straight tongue. Motor exam: Decreased hand gospel worker, 4+/5. Sensation: Decreased for glove and sock are for light touch and temperature. Coordination: [id number] intact. ASSESSMENT AND PLAN: 1. Patient is 76 years old with underlying acute encephalopathy probably secondary to underlying infection. 2. Suspect underlying sepsis with leukocytosis. the patient followed by intravenous antibiotic. 3. Coronary artery disease with a history of mitral valve mechanical prosthesis, ejection fraction 40 percent with underlying congestive heart failure. 4. Chronic pancreatitis. Follow up patient with amylase and lipase levels. 5. Acute transient ischemic attack. CAT scan done yesterday, no acute intracranial infarctions. We might follow up the patient with brain MRI. Dictated By: Bartolome Ma MD /bj/tori /Document#: [id number]
--- NOTE | 2017-06-17 12:27 | CONS ---
Date/Time of Note Date/Time of Note DATE: 06/17/17 TIME: 12:25 Consult Date/Type/Reason Admit Date/Time Jun 08, 2017 at 21:30 Type of Consultation: Hematology Ordering Provider: DUANE NGUYỄN MD Subjective Up for activities with therapy with improving activity tolerance Objective Lungs clear anteriorly Abdomen soft Moderate assist ambulation 20 feet Vital Signs Date Time Temp Pulse Resp B/P Pulse Ox O2 Delivery O2 Flow Rate FiO2 06/17/17 07:38 98.5 75 18 124/59 95 06/16/17 20:30 Nasal Cannula 2.0 Intake and Output 06/16/17 06/16/17 06/17/17 15:00 23:00 07:00 Intake Total 420 ml 480 ml Output Total 1 ml 850 ml Balance -1 ml 420 ml -370 ml Results/Medications Result Diagram: 06/15/1762106/15/17 0622 Results 24 hrs Laboratory Tests Test 06/16/17 13:30 06/17/17 06:21 Urine Color YELLOW Urine Clarity SLIGHTLY CLOUDY A Urine pH 7.0 Urine Specific [place] 1.016 Urine Ketones NEGATIVE Urine Nitrite NEGATIVE Urine Bilirubin NEGATIVE Urine Urobilinogen 1+ H Urine Leukocyte Esterase NEGATIVE Urine Microscopic RBC 1 Urine Microscopic WBC 2 Urine Hemoglobin NEGATIVE Urine Glucose NEGATIVE Urine Total Protein 1+ H Prothrombin Time 24.8 H Prothrombin Time Ratio 1.9 INR International Normalized Ratio 2.21 Medications Current Medications Lubiprostone (Amitiza) 24 mcg BID PO Last administered on 06/17/17 09:03; Admin Dose 24 MCG; Start 06/08/17 at 22:49 Nitroglycerin (Nitroglycerin (Sl Tab) 0.4 Mg) 0.4 tab PRN SL ; Start 06/08/17 at 22:49 Pantoprazole (Protonix Tab) 40 mg DAILY@06 PO Last administered on 06/17/17 06: 37; Admin Dose 40 MG; Start 06/08/17 at 22:49 Acetaminophen (Tylenol Tab) 650 mg Q6H PRN PO PAIN AND OR ELEVATED TEMP Last administered on 06/13/17 01:26; Admin Dose 650 MG; Start 06/08/17 at 22:49 Magnesium Oxide (Mag-Ox 400) 400 mg DAILY PO Last administered on 06/17/17 09: 03; Admin Dose 400 MG; Start 06/08/17 at 22:49 Lactobacillus Acidophilus/ Rhamnosus (Culturelle) 1 cap DAILY PO Last administered on 06/17/17 09:03; Admin Dose 1 CAP; Start 06/08/17 at 22:49 Polyethylene Glycol (Miralax) 8.5 gm DAILY PO Last administered on 06/17/17 09: 01; Admin Dose 8.5 GM; Start 06/08/17 at 22:49 Diltiazem HCl (Cardizem) 30 mg Q8 PO Last administered on 06/17/17 06:37; Admin Dose 30 MG; Start 06/08/17 at 22:49 Bisacodyl (Dulcolax Supp) 10 mg Q48H PRN [place] CONSTIPATION Last administered on 21:31; Admin Dose 10 MG; Start 06/08/17 at 22:49 Multivitamins Therapeutic (Theragran) 1 tab DAILY PO Last administered on 09:01; Admin Dose 1 TAB; Start 06/08/17 at 22:49 Folic Acid (Folic Acid) 1 mg DAILY PO Last administered on 06/17/17 09:03; Admin Dose 1 MG; Start 06/08/17 at 22:49 Atorvastatin Calcium (Lipitor) 10 mg DAILY@21 PO Last administered on 21:09; Admin Dose 10 MG; Start 06/09/17 at 21:00 Ergocalciferol (Drisdol) 50,000 unit Sa@09 PO Last administered on 06/14/17 09 :17; Admin Dose 50,000 UNIT; Start 06/14/17 at 09:00 Warfarin Sodium (Coumadin) 1 mg DAILY@17 PO Last administered on 06/15/17 17: 57; Admin Dose 1 MG; Start 06/12/17 at 17:00; Status Future Hold Atenolol (Tenormin) 12.5 mg BID PO Last administered on 06/17/17 09:03; Admin Dose 12.5 MG; Start 06/13/17 at 21:00 Warfarin Sodium (Coumadin) 2 mg DAILY@17 PO Last administered on 06/16/17 16: 54; Admin Dose 2 MG; Start 06/16/17 at 17:00 Assessment/Plan Additional Assessment/Plan Rehabilitation -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 sepsis Left kidney hematoma-monitor kidney function CAD stage 2 decub on sacrum-continue offloading and wound care, healing well ROBY RANGEL MD Jun 17, 2017 12:27
[2017-06-17 14:22] VITALS: BP 102/53; RESP 22
--- NOTE | 2017-06-17 16:37 | CONS ---
Date/Time of Note Date/Time of Note DATE: 06/17/17 TIME: 16:31 Assessment/Plan Assessment/Plan Chief Complaint/Hosp Course ID PROGRESS NOTE CURRENT ABX: OFF ABX DAY # 3 s/p DAY # 17 => MERREM + Diflucan == DC ABX 06/14 s/p Vanco IV -> DC'd 06/08 s/p Ertapenem 05/28-05/29 24H INTERVAL SUMMARY Chief Complaint/Hosp Course * PRN f/u visit s/p Merrem/Diflucan for ASP PNA now OFF ABX -> Last day 06/14/17 * Hx of CVA w/R-hemiparesis-> lethargic, no fevers, no leukocytosis, stable on supplemental O2 via NC, no fevers * Dysphagia-continue speech therapy; patient did well with that videofluoroscopy examination with no signs of aspiration. Continue speech training PHYSICAL EXAMINATION: GENERAL: VSS, NAD, no fever HEENT: Unremarkable, O2 via nc NECK: Trach midline CHEST: Equal chest rise bilaterally, O2 via NC HEART: Pulse RRR ABDOMEN: Soft, left flank pain EXTREMITIES: Warm SKIN: Warm, dry, mild dependent edema x4 ID ASSESSMENT: 76 yo F admitted with: 1. s/p acute sepsis versus systemic inflammatory response syndrome with persistent leukocytosis secondary to #2 * Recurrent hypotension => DDx diuretic induced? 2. Left kidney hematoma * Per note: patient has perinephric hematoma/bleeding while on Coumadin. 3. Resolving pneumonia with exudative left pleural effusion, status post thoracentesis 06/04/17 = RESOLVED * Recurrent ASPIRATION SYNDROME ? 4. Coronary artery disease with a history of mitral valve mechanical prosthesis and ejection fraction of 40% 5. Cardiac arrhythmia=> S Tach/PAF-overall improved when receives BB/CCB regimen [facility] [place] deviceHistory of permanent pacemaker 6. Chronic pancreatitis with dilated pancreatic duct and multiple small cysts. 7. s/p Acute TIA per admission notes @ [facility] 8. s/p Bacteremia with blood culture on admission grew Bacillus species consistent with contaminant 9. 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 s/p Nina albicans UTI (-)MRSA Nares ABX ALLERGY: PCN CURRENT ABX: OFF ABX DAY # 3 s/p DAY # 17 => MERREM + Diflucan == DC ABX 06/14 s/p Vanco IV -> DC'd 06/08 s/p Ertapenem 05/28-05/29 ID RECOMMENDATIONS Has completed adequate course of ABX ->Stable OFF ABX x 3 days without evidence of recurrent SIRS/Sepsis. Continue to monitor OFF ABX with speech therapy and aspiration precautions For TEMP > 101.0; send BCx, UA, Urine Cx, stool for C.Diff, sputum if possible for respiratory culture. * Will see PRN if indicated, please text or page Dr. Crews ID team colleagues, Thank you . Problems: Consultation Date/Type/Reason Admit Date/Time Jun 08, 2017 at 21:30 Type of Consultation: ID Referring Provider: DUANE NGUYỄN MD Exam/Review of Systems Vital Signs Vitals Vital Signs Date Time Temp Pulse Resp B/P Pulse Ox O2 Delivery O2 Flow Rate FiO2 06/17/17 14:22 98.6 105 22 102/53 98 06/17/17 08:20 Nasal Cannula 2.0 Intake and Output 06/16/17 06/16/17 06/17/17 15:00 23:00 07:00 Intake Total 420 ml 480 ml Output Total 1 ml 850 ml Balance -1 ml 420 ml -370 ml Results Result Diagram: 06/15/17 0622 06/15/17 0622 Results 24 hrs Laboratory Tests Test 06/17/17 06:21 Prothrombin Time 24.8 H Prothrombin Time Ratio 1.9 INR International Normalized Ratio 2.21 Medications Medications Current Medications Lubiprostone (Amitiza) 24 mcg BID PO Last administered on 06/17/17 09:03; Admin Dose 24 MCG; Start 06/08/17 at 22:49 Nitroglycerin (Nitroglycerin (Sl Tab) 0.4 Mg) 0.4 tab PRN SL ; Start 06/08/17 at 22:49 Pantoprazole (Protonix Tab) 40 mg DAILY@06 PO Last administered on 06/17/17 06: 37; Admin Dose 40 MG; Start 06/08/17 at 22:49 Acetaminophen (Tylenol Tab) 650 mg Q6H PRN PO PAIN AND OR ELEVATED TEMP Last administered on 06/13/17 01:26; Admin Dose 650 MG; Start 06/08/17 at 22:49 Magnesium Oxide (Mag-Ox 400) 400 mg DAILY PO Last administered on 06/17/17 09: 03; Admin Dose 400 MG; Start 06/08/17 at 22:49 Lactobacillus Acidophilus/ Rhamnosus (Culturelle) 1 cap DAILY PO Last administered on 06/17/17 09:03; Admin Dose 1 CAP; Start 06/08/17 at 22:49 Polyethylene Glycol (Miralax) 8.5 gm DAILY PO Last administered on 06/17/17 09: 01; Admin Dose 8.5 GM; Start 06/08/17 at 22:49 Diltiazem HCl (Cardizem) 30 mg Q8 PO Last administered on 06/17/17 13:50; Admin Dose 30 MG; Start 06/08/17 at 22:49 Bisacodyl (Dulcolax Supp) 10 mg Q48H PRN [place] CONSTIPATION Last administered on 21:31; Admin Dose 10 MG; Start 06/08/17 at 22:49 Multivitamins Therapeutic (Theragran) 1 tab DAILY PO Last administered on 09:01; Admin Dose 1 TAB; Start 06/08/17 at 22:49 Folic Acid (Folic Acid) 1 mg DAILY PO Last administered on 06/17/17 09:03; Admin Dose 1 MG; Start 06/08/17 at 22:49 Atorvastatin Calcium (Lipitor) 10 mg DAILY@21 PO Last administered on 21:09; Admin Dose 10 MG; Start 06/09/17 at 21:00 Ergocalciferol (Drisdol) 50,000 unit Sa@09 PO Last administered on 06/14/17 09 :17; Admin Dose 50,000 UNIT; Start 06/14/17 at 09:00 Warfarin Sodium (Coumadin) 1 mg DAILY@17 PO Last administered on 06/15/17 17: 57; Admin Dose 1 MG; Start 06/12/17 at 17:00; Status Future Hold Atenolol (Tenormin) 12.5 mg BID PO Last administered on 06/17/17 09:03; Admin Dose 12.5 MG; Start 06/13/17 at 21:00 Warfarin Sodium (Coumadin) 2 mg DAILY@17 PO Last administered on 06/16/17 16: 54; Admin Dose 2 MG; Start 06/16/17 at 17:00 CLAY GRIDER NP Jun 17, 2017 16:37
[2017-06-17] MEDS: WARFARIN 2 MG TAB PO SCH (17:38)
--- NOTE | 2017-06-17 18:07 | PN ---
Date/Time of Note Date/Time of Note DATE: 06/17/17 TIME: 18:07 Assessment/Plan VTE Prophylaxis VTE Prophylaxis Intervention: other Lines/Catheters IV Catheter Type (from Nrs): Saline Lock Urinary Cath still in place: No Assessment/Plan Chief Complaint/Hosp Course 1. SEPSIS resolving 2. AFIB, controlled 3. HTN, controlled 4. ASHD 5. hyponatremia 6. recurrent UTI 7. LOW EF 8. low platelets HX 9. Anemia 10. urinary incontinence 11. Constipation 12. Vit d deficiency 13. Muscle weakness 14 EDEMA 15 DYSPHAGIA BETTER PLAN PT OT STABLE Problems: Subjective 24 Hr Interval Summary Respiratory: no complaints Cardiovascular: no complaints Gastrointestinal: no complaints Genitourinary: no complaints Exam/Review of Systems Vital Signs Vitals Vital Signs Date Time Temp Pulse Resp B/P Pulse Ox O2 Delivery O2 Flow Rate FiO2 06/17/17 14:22 98.6 105 22 102/53 98 06/17/17 08:20 Nasal Cannula 2.0 Intake and Output 06/16/17 06/16/17 06/17/17 15:00 23:00 07:00 Intake Total 420 ml 480 ml Output Total 1 ml 850 ml Balance -1 ml 420 ml -370 ml Exam Respiratory: clear to auscultation Cardiovascular: regular rate and rhythm Gastrointestinal: bowel sounds (+), soft Extremities: edema (BETTER) Results Result Diagram: 06/15/1762106/15/17 06 Results 24 hrs Laboratory Tests Test 06/17/17 06:21 Prothrombin Time 24.8 H Prothrombin Time Ratio 1.9 INR International Normalized Ratio 2.21 Medications Medications Current Medications Lubiprostone (Amitiza) 24 mcg BID PO Last administered on 06/17/17 09:03; Admin Dose 24 MCG; Start 06/08/17 at 22:49 Nitroglycerin (Nitroglycerin (Sl Tab) 0.4 Mg) 0.4 tab PRN SL ; Start 06/08/17 at 22:49 Pantoprazole (Protonix Tab) 40 mg DAILY@06 PO Last administered on 06/17/17 06: 37; Admin Dose 40 MG; Start 06/08/17 at 22:49 Acetaminophen (Tylenol Tab) 650 mg Q6H PRN PO PAIN AND OR ELEVATED TEMP Last administered on 06/13/17 01:26; Admin Dose 650 MG; Start 06/08/17 at 22:49 Magnesium Oxide (Mag-Ox 400) 400 mg DAILY PO Last administered on 06/17/17 09: 03; Admin Dose 400 MG; Start 06/08/17 at 22:49 Lactobacillus Acidophilus/ Rhamnosus (Culturelle) 1 cap DAILY PO Last administered on 06/17/17 09:03; Admin Dose 1 CAP; Start 06/08/17 at 22:49 Polyethylene Glycol (Miralax) 8.5 gm DAILY PO Last administered on 06/17/17 09: 01; Admin Dose 8.5 GM; Start 06/08/17 at 22:49 Diltiazem HCl (Cardizem) 30 mg Q8 PO Last administered on 06/17/17 13:50; Admin Dose 30 MG; Start 06/08/17 at 22:49 Bisacodyl (Dulcolax Supp) 10 mg Q48H PRN [place] CONSTIPATION Last administered on 21:31; Admin Dose 10 MG; Start 06/08/17 at 22:49 Multivitamins Therapeutic (Theragran) 1 tab DAILY PO Last administered on 09:01; Admin Dose 1 TAB; Start 06/08/17 at 22:49 Folic Acid (Folic Acid) 1 mg DAILY PO Last administered on 06/17/17 09:03; Admin Dose 1 MG; Start 06/08/17 at 22:49 Atorvastatin Calcium (Lipitor) 10 mg DAILY@21 PO Last administered on 21:09; Admin Dose 10 MG; Start 06/09/17 at 21:00 Ergocalciferol (Drisdol) 50,000 unit Sa@09 PO Last administered on 06/14/17 09 :17; Admin Dose 50,000 UNIT; Start 06/14/17 at 09:00 Warfarin Sodium (Coumadin) 1 mg DAILY@17 PO Last administered on 06/15/17 17: 57; Admin Dose 1 MG; Start 06/12/17 at 17:00; Status Future Hold Atenolol (Tenormin) 12.5 mg BID PO Last administered on 06/17/17 09:03; Admin Dose 12.5 MG; Start 06/13/17 at 21:00 Warfarin Sodium (Coumadin) 2 mg DAILY@17 PO Last administered on 8/1/17at 17:38 ; Admin Dose 2 MG; Start 06/16/17 at 17:00 DUANE NGUYỄN MD Jun 17, 2017 18:07
[2017-06-17 20:19] VITALS: BP 94/55; RESP 18
[2017-06-17] MEDS: ATORVASTATIN 10 MG TAB PO SCH (20:23)
[2017-06-18 02:00] VITALS: BP 120/67; RESP 18
[2017-06-18] MEDS: PANTOPRAZOLE (EC) 40 MG TAB PO SCH (06:13)
[2017-06-18] MEDS: DILTIAZEM 30 MG TAB PO SCH ×3 (06:13→20:56)
[2017-06-18] MEDS: LEVOTHYROXINE 75 MCG TAB PO SCH (06:13)
[2017-06-18 07:23] LABS: PROTIME 22.9 Sec (12.2-14.2); PT RATIO 1.8
[2017-06-18 07:49] VITALS: BP 122/72; RESP 18
[2017-06-18] MEDS: POLYETHYLENE GLYCOL 17 GM PACKET PO SCH (08:13)
[2017-06-18] MEDS: FOLIC ACID 1 MG TAB PO SCH (08:13)
[2017-06-18] MEDS: MAGNESIUM OXIDE 400 MG TAB PO SCH (08:13)
[2017-06-18] MEDS: ATENOLOL 25 MG TAB PO SCH ×2 (08:13→20:59)
[2017-06-18] MEDS: LACTOBACILLUS RHAMNOSUS CAP PO SCH (08:13)
[2017-06-18] MEDS: LUBIPROSTONE 24 MCG CAP PO SCH ×2 (08:13→20:56)
[2017-06-18] MEDS: MULTIVITAMINS THERAPEUTIC TAB PO SCH (08:13)
--- NOTE | 2017-06-18 11:08 | CONS ---
Date/Time of Note Date/Time of Note DATE: 06/18/17 TIME: 11:06 Consult Date/Type/Reason Admit Date/Time Jun 08, 2017 at 21:30 Type of Consultation: ID Ordering Provider: DUANE NGUYỄN MD Subjective Patient feels tired today Objective Moderate assist mobility Vital Signs Date Time Temp Pulse Resp B/P Pulse Ox O2 Delivery O2 Flow Rate FiO2 06/18/17 08:00 Nasal Cannula 2.0 06/18/17 07:49 97.8 119 18 122/72 97 06/17/17 19:32 21 Intake and Output 06/17/17 06/17/17 06/18/17 15:00 23:00 07:00 Intake Total 400 ml Output Total 950 ml Balance 400 ml -950 ml Results/Medications Result Diagram: 06/15/1762106/15/17 0622 Results 24 hrs Laboratory Tests Test 06/18/17 06:18 Prothrombin Time 22.9 H Prothrombin Time Ratio 1.8 INR International Normalized Ratio 2.00 Medications Current Medications Lubiprostone (Amitiza) 24 mcg BID PO Last administered on 06/18/17 08:13; Admin Dose 24 MCG; Start 06/08/17 at 22:49 Nitroglycerin (Nitroglycerin (Sl Tab) 0.4 Mg) 0.4 tab PRN SL ; Start 06/08/17 at 22:49 Pantoprazole (Protonix Tab) 40 mg DAILY@06 PO Last administered on 06/18/17 06: 13; Admin Dose 40 MG; Start 06/08/17 at 22:49 Acetaminophen (Tylenol Tab) 650 mg Q6H PRN PO PAIN AND OR ELEVATED TEMP Last administered on 06/13/17 01:26; Admin Dose 650 MG; Start 06/08/17 at 22:49 Magnesium Oxide (Mag-Ox 400) 400 mg DAILY PO Last administered on 06/18/17 08: 13; Admin Dose 400 MG; Start 06/08/17 at 22:49 Lactobacillus Acidophilus/ Rhamnosus (Culturelle) 1 cap DAILY PO Last administered on 06/18/17 08:13; Admin Dose 1 CAP; Start 06/08/17 at 22:49 Polyethylene Glycol (Miralax) 8.5 gm DAILY PO Last administered on 06/18/17 08: 13; Admin Dose 8.5 GM; Start 06/08/17 at 22:49 Diltiazem HCl (Cardizem) 30 mg Q8 PO Last administered on 06/18/17 06:13; Admin Dose 30 MG; Start 06/08/17 at 22:49 Bisacodyl (Dulcolax Supp) 10 mg Q48H PRN [place] CONSTIPATION Last administered on 21:31; Admin Dose 10 MG; Start 06/08/17 at 22:49 Multivitamins Therapeutic (Theragran) 1 tab DAILY PO Last administered on 08:13; Admin Dose 1 TAB; Start 06/08/17 at 22:49 Folic Acid (Folic Acid) 1 mg DAILY PO Last administered on 06/18/17 08:13; Admin Dose 1 MG; Start 06/08/17 at 22:49 Atorvastatin Calcium (Lipitor) 10 mg DAILY@21 PO Last administered on 06/17/17 20:23; Admin Dose 10 MG; Start 06/09/17 at 21:00 Ergocalciferol (Drisdol) 50,000 unit Sa@09 PO Last administered on 06/14/17 09 :17; Admin Dose 50,000 UNIT; Start 06/14/17 at 09:00 Warfarin Sodium (Coumadin) 1 mg DAILY@17 PO Last administered on 06/15/17 17: 57; Admin Dose 1 MG; Start 06/12/17 at 17:00; Status Future Hold Atenolol (Tenormin) 12.5 mg BID PO Last administered on 06/18/17 08:13; Admin Dose 12.5 MG; Start 06/13/17 at 21:00 Warfarin Sodium (Coumadin) 2 mg DAILY@17 PO Last administered on 06/17/17 17:38 ; Admin Dose 2 MG; Start 06/16/17 at 17:00 Assessment/Plan Additional Assessment/Plan Rehabilitation -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 sepsis Left kidney hematoma-monitor kidney function stage 2 decub on sacrum-continue offloading and wound care, healing well ROBY RANGEL MD Jun 18, 2017 11:08
--- NOTE | 2017-06-18 14:27 | CONS ---
Date/Time of Note Date/Time of Note DATE: 06/18/17 TIME: 14:23 Assessment/Plan Assessment/Plan Chief Complaint/Hosp Course IMP: 1.tachycardia-? S Tach/PAF-overall improved when receives BB/CCB regimen [facility] [place] device 2.Hypotension-recurrent/? Still hacing BB/CCB held at times but good rate control 3.AF-currently reasonable rate control 4.Fevers/leukcytosis-increased significantly 5. TIA 6.UTI 7. coagulopathy-s/p Vitamin k and now again therapeutic 8. L sided rib pain-positive TTP/resolved-negative troponin 9. 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 MVR 14. 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 Currently stable 15. CHF-systolic acute on chronic LVEF 40% by echo this admit 16. Pleural effusion s/p L thoracentesis Recc: -Now transferred to rehab -Continue BB/CCB as tolerated which were partially held due to patient having swallow eval -Continue abx's and f/u cx data -Continue Coumadin and f/u INR closely -PT/OT as tolerated -give ivp digoxin Problems: Consultation Date/Type/Reason Admit Date/Time Jun 08, 2017 at 21:30 Initial Consult Date 06/08/2017 Type of Consultation: cardiology Reason for Consultation tachycardia Referring Provider: DUANE NGUYỄN MD Exam/Review of Systems Vital Signs Vitals Vital Signs Date Time Temp Pulse Resp B/P Pulse Ox O2 Delivery O2 Flow Rate FiO2 06/18/17 08:00 Nasal Cannula 2.0 06/18/17 07:49 97.8 119 18 122/72 97 06/17/17 19:32 21 Intake and Output 06/17/17 06/17/17 06/18/17 15:00 23:00 07:00 Intake Total 400 ml Output Total 950 ml Balance 400 ml -950 ml Exam Review of Systems: CONSTITUTIONAL: No fevers, chills. PULMONARY: No sob CARDIOVASCULAR: No chest pain/palpitations GASTROINTESTINAL: No nausea/vomiting. GENITOURINARY: No hematuria/dysuria. MUSCULOSKELETAL: No myagias/arthalgias. PSYCHIATRIC: The patient denies depression. NEUROLOGIC: mild generalized weakness Constitutional: alert Psych: no complaints Head: normocephalic ENMT: mucosa pink and moist Neck: jvd (9 cm water), supple Respiratory: diminished breath sounds Cardiovascular: irregular rhythm Gastrointestinal: non-tender Musculoskeletal: muscle weakness (generalized) Extremities: edema (none) Neurological: other (No focal deficits) Results Result Diagram: 06/15/1762106/15/17621 Results 24 hrs Laboratory Tests Test 06/18/17 06:18 Prothrombin Time 22.9 H Prothrombin Time Ratio 1.8 INR International Normalized Ratio 2.00 Medications Medications Current Medications Lubiprostone (Amitiza) 24 mcg BID PO Last administered on 06/18/17 08:13; Admin Dose 24 MCG; Start 06/08/17 at 22:49 Nitroglycerin (Nitroglycerin (Sl Tab) 0.4 Mg) 0.4 tab PRN SL ; Start 06/08/17 at 22:49 Pantoprazole (Protonix Tab) 40 mg DAILY@06 PO Last administered on 06/18/17 06: 13; Admin Dose 40 MG; Start 06/08/17 at 22:49 Acetaminophen (Tylenol Tab) 650 mg Q6H PRN PO PAIN AND OR ELEVATED TEMP Last administered on 06/13/17 01:26; Admin Dose 650 MG; Start 06/08/17 at 22:49 Magnesium Oxide (Mag-Ox 400) 400 mg DAILY PO Last administered on 06/18/17 08: 13; Admin Dose 400 MG; Start 06/08/17 at 22:49 Lactobacillus Acidophilus/ Rhamnosus (Culturelle) 1 cap DAILY PO Last administered on 06/18/17 08:13; Admin Dose 1 CAP; Start 06/08/17 at 22:49 Polyethylene Glycol (Miralax) 8.5 gm DAILY PO Last administered on 06/18/17 08: 13; Admin Dose 8.5 GM; Start 06/08/17 at 22:49 Diltiazem HCl (Cardizem) 30 mg Q8 PO Last administered on 06/18/17 06:13; Admin Dose 30 MG; Start 06/08/17 at 22:49 Bisacodyl (Dulcolax Supp) 10 mg Q48H PRN [place] CONSTIPATION Last administered on 21:31; Admin Dose 10 MG; Start 06/08/17 at 22:49 Multivitamins Therapeutic (Theragran) 1 tab DAILY PO Last administered on 08:13; Admin Dose 1 TAB; Start 06/08/17 at 22:49 Folic Acid (Folic Acid) 1 mg DAILY PO Last administered on 06/18/17 08:13; Admin Dose 1 MG; Start 06/08/17 at 22:49 Atorvastatin Calcium (Lipitor) 10 mg DAILY@21 PO Last administered on 06/17/17 20:23; Admin Dose 10 MG; Start 06/09/17 at 21:00 Ergocalciferol (Drisdol) 50,000 unit Sa@09 PO Last administered on 06/14/17 09 :17; Admin Dose 50,000 UNIT; Start 06/14/17 at 09:00 Warfarin Sodium (Coumadin) 1 mg DAILY@17 PO Last administered on 06/15/17 17: 57; Admin Dose 1 MG; Start 06/12/17 at 17:00; Status Future Hold Atenolol (Tenormin) 12.5 mg BID PO Last administered on 06/18/17 08:13; Admin Dose 12.5 MG; Start 06/13/17 at 21:00 Warfarin Sodium (Coumadin) 2 mg DAILY@17 PO Last administered on 06/17/17 17:38 ; Admin Dose 2 MG; Start 06/16/17 at 17:00 PLACIDO COREA Jun 18, 2017 14:27
[2017-06-18] MEDS ORDERED: DIGOXIN 500 MCG INJ IV ONE (14:30)
[2017-06-18 14:32] VITALS: BP 105/54; PULSE 100; RESP 20
[2017-06-18] MEDS: WARFARIN 2 MG TAB PO SCH (16:59)
[2017-06-18 20:00] VITALS: BP 113/55; RESP 18
[2017-06-18] MEDS: ATORVASTATIN 10 MG TAB PO SCH (20:56)
--- NOTE | 2017-06-19 00:05 | PN ---
Date/Time of Note Date/Time of Note DATE: 06/19/17 TIME: 00:04 Assessment/Plan VTE Prophylaxis VTE Prophylaxis Intervention: other Lines/Catheters IV Catheter Type (from Nrs): Saline Lock Urinary Cath still in place: No Assessment/Plan Chief Complaint/Hosp Course 1. SEPSIS resolving 2. AFIB, controlled 3. HTN, controlled 4. ASHD 5. hyponatremia 6. recurrent UTI 7. LOW EF 8. low platelets HX 9. Anemia 10. urinary incontinence 11. Constipation 12. Vit d deficiency 13. Muscle weakness 14 EDEMA BETTER 15 DYSPHAGIA BETTER PLAN PT OT STABLE Problems: Subjective 24 Hr Interval Summary Respiratory: no complaints Cardiovascular: no complaints Exam/Review of Systems Vital Signs Vitals Vital Signs Date Time Temp Pulse Resp B/P Pulse Ox O2 Delivery O2 Flow Rate FiO2 06/18/17 20:00 97.8 71 18 113/55 93 06/18/17 14:32 Nasal Cannula 06/18/17 08:00 2.0 06/17/17 19:32 21 Intake and Output 06/18/17 06/18/17 06/19/17 15:00 23:00 07:00 Intake Total 800 ml 400 ml Output Total 200 ml 250 ml Balance 600 ml 150 ml Exam Respiratory: clear to auscultation Cardiovascular: regular rate and rhythm Gastrointestinal: soft Musculoskeletal: nl extremities to inspection Extremities: normal pulses Results Result Diagram: 06/15/1762106/15/17 0622 Results 24 hrs Laboratory Tests Test 06/18/17 06:18 Prothrombin Time 22.9 H Prothrombin Time Ratio 1.8 INR International Normalized Ratio 2.00 Medications Medications Current Medications Lubiprostone (Amitiza) 24 mcg BID PO Last administered on 06/18/17 20:56; Admin Dose 24 MCG; Start 06/08/17 at 22:49 Nitroglycerin (Nitroglycerin (Sl Tab) 0.4 Mg) 0.4 tab PRN SL ; Start 06/08/17 at 22:49 Pantoprazole (Protonix Tab) 40 mg DAILY@06 PO Last administered on 06/18/17 06: 13; Admin Dose 40 MG; Start 06/08/17 at 22:49 Acetaminophen (Tylenol Tab) 650 mg Q6H PRN PO PAIN AND OR ELEVATED TEMP Last administered on 06/13/17 01:26; Admin Dose 650 MG; Start 06/08/17 at 22:49 Magnesium Oxide (Mag-Ox 400) 400 mg DAILY PO Last administered on 06/18/17 08: 13; Admin Dose 400 MG; Start 06/08/17 at 22:49 Lactobacillus Acidophilus/ Rhamnosus (Culturelle) 1 cap DAILY PO Last administered on 06/18/17 08:13; Admin Dose 1 CAP; Start 06/08/17 at 22:49 Polyethylene Glycol (Miralax) 8.5 gm DAILY PO Last administered on 06/18/17 08: 13; Admin Dose 8.5 GM; Start 06/08/17 at 22:49 Diltiazem HCl (Cardizem) 30 mg Q8 PO Last administered on 06/18/17 20:56; Admin Dose 30 MG; Start 06/08/17 at 22:49 Bisacodyl (Dulcolax Supp) 10 mg Q48H PRN [place] CONSTIPATION Last administered on 21:31; Admin Dose 10 MG; Start 06/08/17 at 22:49 Multivitamins Therapeutic (Theragran) 1 tab DAILY PO Last administered on 08:13; Admin Dose 1 TAB; Start 06/08/17 at 22:49 Folic Acid (Folic Acid) 1 mg DAILY PO Last administered on 06/18/17 08:13; Admin Dose 1 MG; Start 06/08/17 at 22:49 Atorvastatin Calcium (Lipitor) 10 mg DAILY@21 PO Last administered on 06/18/17 20:56; Admin Dose 10 MG; Start 06/09/17 at 21:00 Ergocalciferol (Drisdol) 50,000 unit Sa@09 PO Last administered on 06/14/17 09 :17; Admin Dose 50,000 UNIT; Start 06/14/17 at 09:00 Atenolol (Tenormin) 12.5 mg BID PO Last administered on 06/18/17 08:13; Admin Dose 12.5 MG; Start 06/13/17 at 21:00 Warfarin Sodium (Coumadin) 3 mg DAILY@17 PO ; Start 06/19/17 at 17:00 DUANE NGUYỄN MD Jun 19, 2017 00:05
[2017-06-19 02:00] VITALS: BP 125/58; RESP 18
[2017-06-19] MEDS: LEVOTHYROXINE 75 MCG TAB PO SCH (06:29)
[2017-06-19] MEDS: PANTOPRAZOLE (EC) 40 MG TAB PO SCH (06:29)
[2017-06-19] MEDS: DILTIAZEM 30 MG TAB PO SCH ×3 (06:32→22:00)
[2017-06-19 07:06] LABS: INR 1.94; PROTIME 22.3 Sec (12.2-14.2); PT RATIO 1.7
[2017-06-19 07:30] VITALS: BP 126/57; RESP 22
[2017-06-19] MEDS: ATENOLOL 25 MG TAB PO SCH ×2 (09:00→20:44)
[2017-06-19] MEDS: LACTOBACILLUS RHAMNOSUS CAP PO SCH (09:28)
[2017-06-19] MEDS: LUBIPROSTONE 24 MCG CAP PO SCH ×2 (09:28→20:41)
[2017-06-19] MEDS: MAGNESIUM OXIDE 400 MG TAB PO SCH (09:29)
[2017-06-19] MEDS: FOLIC ACID 1 MG TAB PO SCH (09:29)
[2017-06-19] MEDS: MULTIVITAMINS THERAPEUTIC TAB PO SCH (09:29)
[2017-06-19] MEDS: POLYETHYLENE GLYCOL 17 GM PACKET PO SCH (09:30)
--- NOTE | 2017-06-19 11:26 | CONS ---
Date/Time of Note Date/Time of Note DATE: 06/19/17 TIME: 11:24 Consult Date/Type/Reason Admit Date/Time Jun 08, 2017 at 21:30 Type of Consultation: cardiology Ordering Provider: DUANE NGUYỄN MD Subjective Patient reports feeling better today however noted to have significant hypotension and continued tachycardia Objective Vital Signs Date Time Temp Pulse Resp B/P Pulse Ox O2 Delivery O2 Flow Rate FiO2 06/19/17 07:30 98.9 70 22 126/57 94 06/18/17 21:00 Nasal Cannula 2.0 06/17/17 19:32 21 Intake and Output 06/18/17 06/18/17 06/19/17 15:00 23:00 07:00 Intake Total 800 ml 400 ml 900 ml Output Total 200 ml 250 ml Balance 600 ml 150 ml 900 ml Results/Medications Result Diagram: 06/15/1722 06/15/17 0622 Results 24 hrs Laboratory Tests Test 06/19/17 05:42 Prothrombin Time 22.3 H Prothrombin Time Ratio 1.7 INR International Normalized Ratio 1.94 Medications Current Medications Lubiprostone (Amitiza) 24 mcg BID PO Last administered on 06/19/17 09:28; Admin Dose 24 MCG; Start 06/08/17 at 22:49 Nitroglycerin (Nitroglycerin (Sl Tab) 0.4 Mg) 0.4 tab PRN SL ; Start 06/08/17 at 22:49 Pantoprazole (Protonix Tab) 40 mg DAILY@06 PO Last administered on 06/19/17 06: 29; Admin Dose 40 MG; Start 06/08/17 at 22:49 Acetaminophen (Tylenol Tab) 650 mg Q6H PRN PO PAIN AND OR ELEVATED TEMP Last administered on 06/13/17 01:26; Admin Dose 650 MG; Start 06/08/17 at 22:49 Magnesium Oxide (Mag-Ox 400) 400 mg DAILY PO Last administered on 06/19/17 09: 29; Admin Dose 400 MG; Start 06/08/17 at 22:49 Lactobacillus Acidophilus/ Rhamnosus (Culturelle) 1 cap DAILY PO Last administered on 06/19/17 09:28; Admin Dose 1 CAP; Start 06/08/17 at 22:49 Polyethylene Glycol (Miralax) 8.5 gm DAILY PO Last administered on 06/19/17 09: 30; Admin Dose 8.5 GM; Start 06/08/17 at 22:49 Diltiazem HCl (Cardizem) 30 mg Q8 PO Last administered on 06/19/17 06:32; Admin Dose 30 MG; Start 06/08/17 at 22:49 Bisacodyl (Dulcolax Supp) 10 mg Q48H PRN [place] CONSTIPATION Last administered on 21:31; Admin Dose 10 MG; Start 06/08/17 at 22:49 Multivitamins Therapeutic (Theragran) 1 tab DAILY PO Last administered on 09:29; Admin Dose 1 TAB; Start 06/08/17 at 22:49 Folic Acid (Folic Acid) 1 mg DAILY PO Last administered on 06/19/17 09:29; Admin Dose 1 MG; Start 06/08/17 at 22:49 Atorvastatin Calcium (Lipitor) 10 mg DAILY@21 PO Last administered on 06/18/17 20:56; Admin Dose 10 MG; Start 06/09/17 at 21:00 Ergocalciferol (Drisdol) 50,000 unit Sa@09 PO Last administered on 06/14/17 09 :17; Admin Dose 50,000 UNIT; Start 06/14/17 at 09:00 Atenolol (Tenormin) 12.5 mg BID PO Last administered on 06/18/17 08:13; Admin Dose 12.5 MG; Start 06/13/17 at 21:00 Warfarin Sodium (Coumadin) 3 mg DAILY@17 PO ; Start 06/19/17 at 17:00 Assessment/Plan Additional Assessment/Plan Rehabilitation -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 Patient with significant hypotension and tachycardia today. Cardiology to follow-up Dysphagia-continue speech therapy activities BP-continue to monitor Pleural effusion-s.p thoracentesis, stable s.p. sepsis Left kidney hematoma-monitor kidney function stage 2 decub on sacrum-continue offloading and wound care, healing well ROBY RANGEL MD Jun 19, 2017 11:26
--- NOTE | 2017-06-19 12:17 | CONS ---
Date/Time of Note Date/Time of Note DATE: 06/19/17 TIME: 12:15 Assessment/Plan Assessment/Plan Chief Complaint/Hosp Course IMP: 1.tachycardia-? S Tach/PAF-overall improved when receives BB/CCB regimen [facility] device 2.Hypotension-recurrent/? Still hacing BB/CCB held at times but good rate control 3.AF-currently reasonable rate control 4.Fevers/leukcytosis-increased significantly 5. TIA 6.UTI 7. coagulopathy-s/p Vitamin k and now again therapeutic 8. L sided rib pain-positive TTP/resolved-negative troponin 9. 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 MVR 14. 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 Currently stable 15. CHF-systolic acute on chronic LVEF 40% by echo this admit 16. Pleural effusion s/p L thoracentesis Recc: -Now transferred to rehab -Continue BB/CCB as tolerated which at times have been held -Continue abx's and f/u cx data -Continue Coumadin and f/u INR closely -PT/OT as tolerated -s/p ivp digoxin with overall improved HR control Problems: Consultation Date/Type/Reason Admit Date/Time Jun 08, 2017 at 21:30 Initial Consult Date 06/08/2017 Type of Consultation: cardiology Reason for Consultation AF/AFL Referring Provider: DUANE NGUYỄN MD Exam/Review of Systems Vital Signs Vitals Vital Signs Date Time Temp Pulse Resp B/P Pulse Ox O2 Delivery O2 Flow Rate FiO2 06/19/17 07:30 98.9 70 22 126/57 94 06/18/17 21:00 Nasal Cannula 2.0 06/17/17 19:32 21 Intake and Output 06/18/17 06/18/17 06/19/17 15:00 23:00 07:00 Intake Total 800 ml 400 ml 900 ml Output Total 200 ml 250 ml Balance 600 ml 150 ml 900 ml Exam Review of Systems: CONSTITUTIONAL: No fevers, chills. PULMONARY: No sob CARDIOVASCULAR: No chest pain/palpitations GASTROINTESTINAL: No nausea/vomiting. GENITOURINARY: No hematuria/dysuria. MUSCULOSKELETAL: No myagias/arthalgias. PSYCHIATRIC: The patient denies depression. NEUROLOGIC: No weakness Constitutional: alert Psych: no complaints Head: normocephalic ENMT: mucosa pink and moist Neck: jvd (9 cm water), supple Respiratory: diminished breath sounds Cardiovascular: irregular rhythm Gastrointestinal: non-tender, soft Musculoskeletal: muscle tone (normal) Extremities: edema (none) Neurological: other (No focal deficits) Results Result Diagram: 06/15/17 0622 06/15/17 0622 Results 24 hrs Laboratory Tests Test 06/19/17 05:42 Prothrombin Time 22.3 H Prothrombin Time Ratio 1.7 INR International Normalized Ratio 1.94 Medications Medications Current Medications Lubiprostone (Amitiza) 24 mcg BID PO Last administered on 06/19/17 09:28; Admin Dose 24 MCG; Start 06/08/17 at 22:49 Nitroglycerin (Nitroglycerin (Sl Tab) 0.4 Mg) 0.4 tab PRN SL ; Start 06/08/17 at 22:49 Pantoprazole (Protonix Tab) 40 mg DAILY@06 PO Last administered on 06/19/17 06: 29; Admin Dose 40 MG; Start 06/08/17 at 22:49 Acetaminophen (Tylenol Tab) 650 mg Q6H PRN PO PAIN AND OR ELEVATED TEMP Last administered on 06/13/17 01:26; Admin Dose 650 MG; Start 06/08/17 at 22:49 Magnesium Oxide (Mag-Ox 400) 400 mg DAILY PO Last administered on 06/19/17 09: 29; Admin Dose 400 MG; Start 06/08/17 at 22:49 Lactobacillus Acidophilus/ Rhamnosus (Culturelle) 1 cap DAILY PO Last administered on 06/19/17 09:28; Admin Dose 1 CAP; Start 06/08/17 at 22:49 Polyethylene Glycol (Miralax) 8.5 gm DAILY PO Last administered on 06/19/17 09: 30; Admin Dose 8.5 GM; Start 06/08/17 at 22:49 Diltiazem HCl (Cardizem) 30 mg Q8 PO Last administered on 06/19/17 06:32; Admin Dose 30 MG; Start 06/08/17 at 22:49 Bisacodyl (Dulcolax Supp) 10 mg Q48H PRN [place] CONSTIPATION Last administered on 21:31; Admin Dose 10 MG; Start 06/08/17 at 22:49 Multivitamins Therapeutic (Theragran) 1 tab DAILY PO Last administered on 09:29; Admin Dose 1 TAB; Start 06/08/17 at 22:49 Folic Acid (Folic Acid) 1 mg DAILY PO Last administered on 06/19/17 09:29; Admin Dose 1 MG; Start 06/08/17 at 22:49 Atorvastatin Calcium (Lipitor) 10 mg DAILY@21 PO Last administered on 06/18/17 20:56; Admin Dose 10 MG; Start 06/09/17 at 21:00 Ergocalciferol (Drisdol) 50,000 unit Sa@09 PO Last administered on 06/14/17 09 :17; Admin Dose 50,000 UNIT; Start 06/14/17 at 09:00 Atenolol (Tenormin) 12.5 mg BID PO Last administered on 06/18/17 08:13; Admin Dose 12.5 MG; Start 06/13/17 at 21:00 Warfarin Sodium (Coumadin) 3 mg DAILY@17 PO ; Start 06/19/17 at 17:00 PLACIDO COREA Jun 19, 2017 12:17
[2017-06-19] MEDS: DIGOXIN 0.25 MG TAB PO SCH (13:08)
[2017-06-19 14:00] VITALS: BP 104/70; RESP 20
[2017-06-19] MEDS: WARFARIN 3 MG TAB PO SCH (17:11)
[2017-06-19 19:17] VITALS: BP 108/55; RESP 19
[2017-06-19] MEDS: ATORVASTATIN 10 MG TAB PO SCH (20:41)
--- NOTE | 2017-06-20 00:19 | PN ---
Date/Time of Note Date/Time of Note DATE: 06/20/17 TIME: 00:18 Assessment/Plan VTE Prophylaxis VTE Prophylaxis Intervention: other Lines/Catheters IV Catheter Type (from Nrs): [facility] Urinary Cath still in place: No Assessment/Plan Chief Complaint/Hosp Course 1. SEPSIS resolving 2. AFIB, controlled 3. HTN, controlled 4. ASHD 5. hyponatremia 6. recurrent UTI 7. LOW EF 8. low platelets HX 9. Anemia 10. urinary incontinence 11. Constipation 12. Vit d deficiency 13. Muscle weakness 14 EDEMA BETTER 15 DYSPHAGIA BETTER PLAN PT OT STABLE Problems: Subjective 24 Hr Interval Summary Respiratory: no complaints Cardiovascular: no complaints Exam/Review of Systems Vital Signs Vitals Vital Signs Date Time Temp Pulse Resp B/P Pulse Ox O2 Delivery O2 Flow Rate FiO2 06/19/17 19:17 99.3 76 19 108/55 97 06/19/17 08:00 Nasal Cannula 2.0 06/17/17 19:32 21 Intake and Output 06/19/17 06/19/17 06/20/17 15:00 23:00 07:00 Intake Total 420 ml Output Total 400 ml Balance 420 ml -400 ml Exam Respiratory: clear to auscultation Cardiovascular: regular rate and rhythm Gastrointestinal: soft Musculoskeletal: nl extremities to inspection Extremities: normal pulses Results Results 24 hrs Laboratory Tests Test 06/19/17 05:42 Prothrombin Time 22.3 H Prothrombin Time Ratio 1.7 INR International Normalized Ratio 1.94 Medications Medications Current Medications Lubiprostone (Amitiza) 24 mcg BID PO Last administered on 06/19/17 20:41; Admin Dose 24 MCG; Start 06/08/17 at 22:49 Nitroglycerin (Nitroglycerin (Sl Tab) 0.4 Mg) 0.4 tab PRN SL ; Start 06/08/17 at 22:49 Pantoprazole (Protonix Tab) 40 mg DAILY@06 PO Last administered on 06/19/17 06: 29; Admin Dose 40 MG; Start 06/08/17 at 22:49 Acetaminophen (Tylenol Tab) 650 mg Q6H PRN PO PAIN AND OR ELEVATED TEMP Last administered on 06/13/17 01:26; Admin Dose 650 MG; Start 06/08/17 at 22:49 Magnesium Oxide (Mag-Ox 400) 400 mg DAILY PO Last administered on 06/19/17 09: 29; Admin Dose 400 MG; Start 06/08/17 at 22:49 Lactobacillus Acidophilus/ Rhamnosus (Culturelle) 1 cap DAILY PO Last administered on 06/19/17 09:28; Admin Dose 1 CAP; Start 06/08/17 at 22:49 Polyethylene Glycol (Miralax) 8.5 gm DAILY PO Last administered on 06/19/17 09: 30; Admin Dose 8.5 GM; Start 06/08/17 at 22:49 Diltiazem HCl (Cardizem) 30 mg Q8 PO Last administered on 06/19/17 06:32; Admin Dose 30 MG; Start 06/08/17 at 22:49 Bisacodyl (Dulcolax Supp) 10 mg Q48H PRN [place] CONSTIPATION Last administered on 21:31; Admin Dose 10 MG; Start 06/08/17 at 22:49 Multivitamins Therapeutic (Theragran) 1 tab DAILY PO Last administered on 09:29; Admin Dose 1 TAB; Start 06/08/17 at 22:49 Folic Acid (Folic Acid) 1 mg DAILY PO Last administered on 06/19/17 09:29; Admin Dose 1 MG; Start 06/08/17 at 22:49 Atorvastatin Calcium (Lipitor) 10 mg DAILY@21 PO Last administered on 06/19/17 20:41; Admin Dose 10 MG; Start 06/09/17 at 21:00 Ergocalciferol (Drisdol) 50,000 unit Sa@09 PO Last administered on 06/14/17 09 :17; Admin Dose 50,000 UNIT; Start 06/14/17 at 09:00 Atenolol (Tenormin) 12.5 mg BID PO Last administered on 06/18/17 08:13; Admin Dose 12.5 MG; Start 06/13/17 at 21:00 Warfarin Sodium (Coumadin) 3 mg DAILY@17 PO Last administered on 06/19/17 17:11 ; Admin Dose 3 MG; Start 06/19/17 at 17:00 Digoxin (Digoxin) 0.25 mg DAILY@13 PO Last administered on 06/19/17 13:08; Admin Dose 0.25 MG; Start 06/19/17 at 13:00 DUANE NGUYỄN MD Jun 20, 2017 00:19
[2017-06-20 02:22] VITALS: BP 131/76; RESP 19
[2017-06-20] MEDS: LEVOTHYROXINE 75 MCG TAB PO SCH (06:23)
[2017-06-20] MEDS: PANTOPRAZOLE (EC) 40 MG TAB PO SCH (06:23)
[2017-06-20] MEDS: DILTIAZEM 30 MG TAB PO SCH ×3 (06:23→21:03)
[2017-06-20 07:33] LABS: ALBUMIN 2.1 g/dl (3.3-4.9); ALBUMIN/GLOBULIN RATIO 0.53; BILIRUBIN,INDIRECT 0.4 mg/dl (0-1.1); BILIRUBIN,TOTAL 0.4 mg/dl (0.2-1.3); CALCIUM 7.8 mg/dl (8.4-10.2); CREATININE 0.64 mg/dl (0.44-1.00); POTASSIUM 4.2 mmol/L (3.5-5.1)
[2017-06-20 07:35] LABS: INR 1.98; PROTIME 22.7 Sec (12.2-14.2); PT RATIO 1.8
[2017-06-20 08:18] VITALS: BP 117/51; RESP 19
[2017-06-20] MEDS: ATENOLOL 25 MG TAB PO SCH ×2 (09:00→20:43)
[2017-06-20] MEDS: LUBIPROSTONE 24 MCG CAP PO SCH ×2 (09:25→20:41)
[2017-06-20] MEDS: LACTOBACILLUS RHAMNOSUS CAP PO SCH (09:25)
[2017-06-20] MEDS: FOLIC ACID 1 MG TAB PO SCH (09:25)
[2017-06-20] MEDS: MULTIVITAMINS THERAPEUTIC TAB PO SCH (09:25)
[2017-06-20] MEDS: MAGNESIUM OXIDE 400 MG TAB PO SCH (09:26)
[2017-06-20] MEDS: POLYETHYLENE GLYCOL 17 GM PACKET PO SCH (09:29)
--- NOTE | 2017-06-20 12:47 | CONS ---
Date/Time of Note Date/Time of Note DATE: 06/20/17 TIME: 12:46 Consult Date/Type/Reason Admit Date/Time Jun 08, 2017 at 21:30 Type of Consultation: cardiology Ordering Provider: DUANE NGUYỄN MD Subjective Patient comfortable no complaint Objective Lungs clear anteriorly abdomen soft Minimal to moderate assist ambulation Vital Signs Date Time Temp Pulse Resp B/P Pulse Ox O2 Delivery O2 Flow Rate FiO2 06/20/17 08:18 97.5 75 19 117/51 98 06/20/17 08:00 Nasal Cannula 2.0 06/17/17 19:32 21 Intake and Output 06/19/17 06/19/17 06/20/17 15:00 23:00 07:00 Intake Total 420 ml Output Total 400 ml Balance 420 ml -400 ml Results/Medications Result Diagram: 06/20/17 0638 Results 24 hrs Laboratory Tests Test 06/20/17 06:38 Prothrombin Time 22.7 H Prothrombin Time Ratio 1.8 INR International Normalized Ratio 1.98 Sodium Level 136 Potassium Level 4.2 Chloride Level 100 Carbon Dioxide Level 30 Anion Gap 10 Blood Urea Nitrogen 19 Creatinine 0.64 Glucose Level 66 L Calcium Level 7.8 L Total Bilirubin 0.4 Direct Bilirubin 0.00 Indirect Bilirubin 0.4 Aspartate Amino Transf (AST/SGOT) 46 Alanine Aminotransferase (ALT/SGPT) 40 Alkaline Phosphatase 108 Total Protein 6.0 L Albumin 2.1 L Globulin 3.90 H Albumin/Globulin Ratio 0.53 Medications Current Medications Lubiprostone (Amitiza) 24 mcg BID PO Last administered on 06/20/17 09:25; Admin Dose 24 MCG; Start 06/08/17 at 22:49 Nitroglycerin (Nitroglycerin (Sl Tab) 0.4 Mg) 0.4 tab PRN SL ; Start 06/08/17 at 22:49 Pantoprazole (Protonix Tab) 40 mg DAILY@06 PO Last administered on 06/20/17 06: 23; Admin Dose 40 MG; Start 06/08/17 at 22:49 Acetaminophen (Tylenol Tab) 650 mg Q6H PRN PO PAIN AND OR ELEVATED TEMP Last administered on 06/13/17 01:26; Admin Dose 650 MG; Start 06/08/17 at 22:49 Magnesium Oxide (Mag-Ox 400) 400 mg DAILY PO Last administered on 06/20/17 09: 26; Admin Dose 400 MG; Start 06/08/17 at 22:49 Lactobacillus Acidophilus/ Rhamnosus (Culturelle) 1 cap DAILY PO Last administered on 06/20/17 09:25; Admin Dose 1 CAP; Start 06/08/17 at 22:49 Polyethylene Glycol (Miralax) 8.5 gm DAILY PO Last administered on 06/20/17 09: 29; Admin Dose 8.5 GM; Start 06/08/17 at 22:49 Diltiazem HCl (Cardizem) 30 mg Q8 PO Last administered on 06/20/17 06:23; Admin Dose 30 MG; Start 06/08/17 at 22:49 Bisacodyl (Dulcolax Supp) 10 mg Q48H PRN [place] CONSTIPATION Last administered on 21:31; Admin Dose 10 MG; Start 06/08/17 at 22:49 Multivitamins Therapeutic (Theragran) 1 tab DAILY PO Last administered on 09:25; Admin Dose 1 TAB; Start 06/08/17 at 22:49 Folic Acid (Folic Acid) 1 mg DAILY PO Last administered on 06/20/17 09:25; Admin Dose 1 MG; Start 06/08/17 at 22:49 Atorvastatin Calcium (Lipitor) 10 mg DAILY@21 PO Last administered on 06/19/17 20:41; Admin Dose 10 MG; Start 06/09/17 at 21:00 Ergocalciferol (Drisdol) 50,000 unit Sa@09 PO Last administered on 06/14/17 09 :17; Admin Dose 50,000 UNIT; Start 06/14/17 at 09:00 Atenolol (Tenormin) 12.5 mg BID PO Last administered on 06/18/17 08:13; Admin Dose 12.5 MG; Start 06/13/17 at 21:00 Warfarin Sodium (Coumadin) 3 mg DAILY@17 PO Last administered on 06/19/17 17:11 ; Admin Dose 3 MG; Start 06/19/17 at 17:00 Digoxin (Digoxin) 0.25 mg DAILY@13 PO Last administered on 06/19/17 13:08; Admin Dose 0.25 MG; Start 06/19/17 at 13:00 Assessment/Plan Additional Assessment/Plan Rehabilitation -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 Blood pressure improved today. Patient followed closely by cardiology Dysphagia-continue speech therapy activities BP-continue to monitor Pleural effusion-s.p thoracentesis, stable s.p. sepsis Left kidney hematoma-monitor kidney function stage 2 decub on sacrum-continue offloading and wound care, healing well ROBY RANGEL MD Jun 20, 2017 12:47
[2017-06-20] MEDS: DIGOXIN 0.25 MG TAB PO SCH (13:15)
--- NOTE | 2017-06-20 14:02 | CONS ---
Date/Time of Note Date/Time of Note DATE: 06/20/17 TIME: 14:01 Assessment/Plan Assessment/Plan Chief Complaint/Hosp Course IMP: 1.tachycardia-? S Tach/PAF-overall improved when receives BB/CCB regimen [facility] [place] device 2.Hypotension-recurrent/? Still hacing BB/CCB held at times but good rate control 3.AF-currently reasonable rate control 4.Fevers/leukcytosis-increased significantly 5. TIA 6.UTI 7. coagulopathy-s/p Vitamin k and now again therapeutic 8. L sided rib pain-positive TTP/resolved-negative troponin 9. 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 MVR 14. 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 Currently stable 15. CHF-systolic acute on chronic LVEF 40% by echo this admit 16. Pleural effusion s/p L thoracentesis Recc: -Now transferred to rehab -Continue BB/CCB as tolerated which at times have been held -Continue abx's and f/u cx data -Continue Coumadin and f/u INR closely -PT/OT as tolerated -s/p ivp digoxin with overall improved HR control Problems: Consultation Date/Type/Reason Admit Date/Time Jun 08, 2017 at 21:30 Initial Consult Date 06/08/2017 Type of Consultation: cardiology Reason for Consultation tachycardia Referring Provider: DUANE NGUYỄN MD Exam/Review of Systems Vital Signs Vitals Vital Signs Date Time Temp Pulse Resp B/P Pulse Ox O2 Delivery O2 Flow Rate FiO2 06/20/17 08:18 97.5 75 19 117/51 98 06/20/17 08:00 Nasal Cannula 2.0 06/17/17 19:32 21 Intake and Output 06/19/17 06/19/17 06/20/17 15:00 23:00 07:00 Intake Total 420 ml Output Total 400 ml Balance 420 ml -400 ml Exam Review of Systems: CONSTITUTIONAL: No fevers, chills. PULMONARY: No sob CARDIOVASCULAR: No chest pain/palpitations GASTROINTESTINAL: No nausea/vomiting. GENITOURINARY: No hematuria/dysuria. MUSCULOSKELETAL: No myagias/arthalgias. PSYCHIATRIC: The patient denies depression. NEUROLOGIC: No weakness Constitutional: alert Psych: no complaints Head: normocephalic ENMT: mucosa pink and moist Neck: jvd (9 cm water), supple Respiratory: diminished breath sounds (at bases/B) Cardiovascular: regular rate and rhythm Gastrointestinal: non-tender, soft Musculoskeletal: muscle tone (normal) Extremities: edema (none) Neurological: other (No focal deficits) Results Result Diagram: 06/20/17 0638 Results 24 hrs Laboratory Tests Test 06/20/17 06:38 Prothrombin Time 22.7 H Prothrombin Time Ratio 1.8 INR International Normalized Ratio 1.98 Sodium Level 136 Potassium Level 4.2 Chloride Level 100 Carbon Dioxide Level 30 Anion Gap 10 Blood Urea Nitrogen 19 Creatinine 0.64 Glucose Level 66 L Calcium Level 7.8 L Total Bilirubin 0.4 Direct Bilirubin 0.00 Indirect Bilirubin 0.4 Aspartate Amino Transf (AST/SGOT) 46 Alanine Aminotransferase (ALT/SGPT) 40 Alkaline Phosphatase 108 Total Protein 6.0 L Albumin 2.1 L Globulin 3.90 H Albumin/Globulin Ratio 0.53 Medications Medications Current Medications Lubiprostone (Amitiza) 24 mcg BID PO Last administered on 06/20/17 09:25; Admin Dose 24 MCG; Start 06/08/17 at 22:49 Nitroglycerin (Nitroglycerin (Sl Tab) 0.4 Mg) 0.4 tab PRN SL ; Start 06/08/17 at 22:49 Pantoprazole (Protonix Tab) 40 mg DAILY@06 PO Last administered on 06/20/17 06: 23; Admin Dose 40 MG; Start 06/08/17 at 22:49 Acetaminophen (Tylenol Tab) 650 mg Q6H PRN PO PAIN AND OR ELEVATED TEMP Last administered on 06/13/17 01:26; Admin Dose 650 MG; Start 06/08/17 at 22:49 Magnesium Oxide (Mag-Ox 400) 400 mg DAILY PO Last administered on 06/20/17 09: 26; Admin Dose 400 MG; Start 06/08/17 at 22:49 Lactobacillus Acidophilus/ Rhamnosus (Culturelle) 1 cap DAILY PO Last administered on 06/20/17 09:25; Admin Dose 1 CAP; Start 06/08/17 at 22:49 Polyethylene Glycol (Miralax) 8.5 gm DAILY PO Last administered on 06/20/17 09: 29; Admin Dose 8.5 GM; Start 06/08/17 at 22:49 Diltiazem HCl (Cardizem) 30 mg Q8 PO Last administered on 06/20/17 06:23; Admin Dose 30 MG; Start 06/08/17 at 22:49 Bisacodyl (Dulcolax Supp) 10 mg Q48H PRN [place] CONSTIPATION Last administered on 21:31; Admin Dose 10 MG; Start 06/08/17 at 22:49 Multivitamins Therapeutic (Theragran) 1 tab DAILY PO Last administered on 09:25; Admin Dose 1 TAB; Start 06/08/17 at 22:49 Folic Acid (Folic Acid) 1 mg DAILY PO Last administered on 06/20/17 09:25; Admin Dose 1 MG; Start 06/08/17 at 22:49 Atorvastatin Calcium (Lipitor) 10 mg DAILY@21 PO Last administered on 06/19/17 20:41; Admin Dose 10 MG; Start 06/09/17 at 21:00 Ergocalciferol (Drisdol) 50,000 unit Sa@09 PO Last administered on 06/14/17 09 :17; Admin Dose 50,000 UNIT; Start 06/14/17 at 09:00 Atenolol (Tenormin) 12.5 mg BID PO Last administered on 06/18/17 08:13; Admin Dose 12.5 MG; Start 06/13/17 at 21:00 Warfarin Sodium (Coumadin) 3 mg DAILY@17 PO Last administered on 06/19/17 17:11 ; Admin Dose 3 MG; Start 06/19/17 at 17:00 Digoxin (Digoxin) 0.25 mg DAILY@13 PO Last administered on 06/20/17 13:15; Admin Dose 0.25 MG; Start 06/19/17 at 13:00 PLACIDO COREA Jun 20, 2017 14:02
--- NOTE | 2017-06-20 14:07 | PN ---
Date/Time of Note Date/Time of Note DATE: 06/20/17 TIME: 14:06 Assessment/Plan VTE Prophylaxis VTE Prophylaxis Intervention: ambulation Lines/Catheters IV Catheter Type (from [facility], [place] Saline Lock Urinary Cath still in place: No Assessment/Plan Chief Complaint/Hosp Course 1. Muscle weakness 2. AFIB, controlled 3. HTN, controlled 4. ASHD 5. hyponatremia 6. recurrent UTI 7. LOW EF 8. Hx low platelets 9. Anemia 10. urinary incontinence 11. Constipation 12. Vit D deficiency 13. Muscle weakness 14 EDEMA 15 DYSPHAGIA Problems: Assessment/Plan 1. continue PT 2. D/c planning Subjective 24 Hr Interval Summary Constitutional: improved, no complaints Exam/Review of Systems Vital Signs Vitals Vital Signs Date Time Temp Pulse Resp B/P Pulse Ox O2 Delivery O2 Flow Rate FiO2 06/20/17 08:18 97.5 75 19 117/51 98 06/20/17 08:00 Nasal Cannula 2.0 06/17/17 19:32 21 Intake and Output 06/19/17 06/19/17 06/20/17 15:00 23:00 07:00 Intake Total 420 ml Output Total 400 ml Balance 420 ml -400 ml Exam ENMT: nl external ears & nose Neck: supple Respiratory: clear to auscultation Cardiovascular: regular rate and rhythm Musculoskeletal: muscle weakness Results Result Diagram: 06/20/17 0638 Results 24 hrs Laboratory Tests Test 06/20/17 06:38 Prothrombin Time 22.7 H Prothrombin Time Ratio 1.8 INR International Normalized Ratio 1.98 Sodium Level 136 Potassium Level 4.2 Chloride Level 100 Carbon Dioxide Level 30 Anion Gap 10 Blood Urea Nitrogen 19 Creatinine 0.64 Glucose Level 66 L Calcium Level 7.8 L Total Bilirubin 0.4 Direct Bilirubin 0.00 Indirect Bilirubin 0.4 Aspartate Amino Transf (AST/SGOT) 46 Alanine Aminotransferase (ALT/SGPT) 40 Alkaline Phosphatase 108 Total Protein 6.0 L Albumin 2.1 L Globulin 3.90 H Albumin/Globulin Ratio 0.53 Medications Medications Current Medications Lubiprostone (Amitiza) 24 mcg BID PO Last administered on 06/20/17t 09:25; Admin Dose 24 MCG; Start 06/08/17 at 22:49 Nitroglycerin (Nitroglycerin (Sl Tab) 0.4 Mg) 0.4 tab PRN SL ; Start 06/08/17 at 22:49 Pantoprazole (Protonix Tab) 40 mg DAILY@06 PO Last administered on 06/20/17 06: 23; Admin Dose 40 MG; Start 06/08/17 at 22:49 Acetaminophen (Tylenol Tab) 650 mg Q6H PRN PO PAIN AND OR ELEVATED TEMP Last administered on 06/13/17 01:26; Admin Dose 650 MG; Start 06/08/17 at 22:49 Magnesium Oxide (Mag-Ox 400) 400 mg DAILY PO Last administered on 06/20/17 09: 26; Admin Dose 400 MG; Start 06/08/17 at 22:49 Lactobacillus Acidophilus/ Rhamnosus (Culturelle) 1 cap DAILY PO Last administered on 06/20/17 09:25; Admin Dose 1 CAP; Start 06/08/17 at 22:49 Polyethylene Glycol (Miralax) 8.5 gm DAILY PO Last administered on 06/20/17 09: 29; Admin Dose 8.5 GM; Start 06/08/17 at 22:49 Diltiazem HCl (Cardizem) 30 mg Q8 PO Last administered on 06/20/17 06:23; Admin Dose 30 MG; Start 06/08/17 at 22:49 Bisacodyl (Dulcolax Supp) 10 mg Q48H PRN [place] CONSTIPATION Last administered on 21:31; Admin Dose 10 MG; Start 06/08/17 at 22:49 Multivitamins Therapeutic (Theragran) 1 tab DAILY PO Last administered on 09:25; Admin Dose 1 TAB; Start 06/08/17 at 22:49 Folic Acid (Folic Acid) 1 mg DAILY PO Last administered on 06/20/17 09:25; Admin Dose 1 MG; Start 06/08/17 at 22:49 Atorvastatin Calcium (Lipitor) 10 mg DAILY@21 PO Last administered on 06/19/17 20:41; Admin Dose 10 MG; Start 06/09/17 at 21:00 Ergocalciferol (Drisdol) 50,000 unit Sa@09 PO Last administered on 06/14/17 09 :17; Admin Dose 50,000 UNIT; Start 06/14/17 at 09:00 Atenolol (Tenormin) 12.5 mg BID PO Last administered on 06/18/17 08:13; Admin Dose 12.5 MG; Start 06/13/17 at 21:00 Warfarin Sodium (Coumadin) 3 mg DAILY@17 PO Last administered on 06/19/17 17:11 ; Admin Dose 3 MG; Start 06/19/17 at 17:00 Digoxin (Digoxin) 0.25 mg DAILY@13 PO Last administered on 06/20/17 13:15; Admin Dose 0.25 MG; Start 06/19/17 at 13:00 RENAY TRAN Jun 20, 2017 14:07
[2017-06-20 14:10] VITALS: BP 120/56; RESP 19
[2017-06-20] MEDS: WARFARIN 3 MG TAB PO SCH (18:10)
[2017-06-20 20:00] VITALS: BP 111/56; RESP 18
[2017-06-20] MEDS: ATORVASTATIN 10 MG TAB PO SCH (20:44)
[2017-06-20] MEDS ORDERED: LACTULOSE 30ML CUP PO PRN (23:00)
[2017-06-20] MEDS ORDERED: MAGNESIUM HYDROXIDE 30ML CUP PO PRN (23:00)
[2017-06-21] VITALS (8 sets, daily range): BP systolic 100–124; BP diastolic 53–60; PULSE 70–124; RESP 16–18
[2017-06-21] MEDS: PANTOPRAZOLE (EC) 40 MG TAB PO SCH (06:16)
[2017-06-21] MEDS: DILTIAZEM 30 MG TAB PO SCH ×3 (06:16→20:45)
[2017-06-21] MEDS: LEVOTHYROXINE 75 MCG TAB PO SCH (06:17)
[2017-06-21 07:21] LABS: BASOPHIL # 0.1 10^3/ul (0.0-0.1); BASOPHILS % 0.9 % (0.0-2.0); EOSINOPHILS # 0.1 10^3/ul (0.0-0.5); EOSINOPHILS % 0.9 % (0.0-7.0); HEMATOCRIT 31.1 % (37.0-47.0); HEMOGLOBIN 10.3 g/dl (12.0-16.0); LYMPHOCYTES # 1.5 10^3/ul (0.8-2.9); MEAN CORPUSCULAR HEMOGLOBIN 29.8 pg (29.0-33.0); MEAN CORPUSCULAR HGB CONC 33.1 g/dl (32.0-37.0); MEAN CORPUSCULAR VOLUME 89.9 fl (82.0-101.0); MONOCYTE # 1.3 10^3/ul (0.3-0.9); MONOCYTES % 19.9 % (0.0-11.0); NEUTROPHIL # 3.5 10^3/ul (1.6-7.5); NEUTROPHILS % 53.4 % (39.0-77.0); PLATELET COUNT 353 10^3/UL (140-415); RED BLOOD COUNT 3.46 10^6/ul (4.20-5.40); RED CELL DISTRIBUTION WIDTH 16.6 % (11.5-14.5); WHITE BLOOD COUNT 6.5 10^3/ul (4.8-10.8)
[2017-06-21 07:26] LABS: INR 1.8; PT RATIO 1.6
[2017-06-21] MEDS: LUBIPROSTONE 24 MCG CAP PO SCH ×2 (09:08→21:00)
[2017-06-21] MEDS: LACTOBACILLUS RHAMNOSUS CAP PO SCH (09:09)
[2017-06-21] MEDS: MAGNESIUM OXIDE 400 MG TAB PO SCH (09:09)
[2017-06-21] MEDS: FOLIC ACID 1 MG TAB PO SCH (09:09)
[2017-06-21] MEDS: POLYETHYLENE GLYCOL 17 GM PACKET PO SCH (09:09)
[2017-06-21] MEDS: ERGOCALCIFEROL 50,000 UNIT CAP PO SCH (09:09)
[2017-06-21] MEDS: ATENOLOL 25 MG TAB PO SCH ×2 (09:10→20:46)
[2017-06-21] MEDS: MULTIVITAMINS THERAPEUTIC TAB PO SCH (09:10)
--- NOTE | 2017-06-21 11:44 | PN ---
Date/Time of Note Date/Time of Note DATE: 06/21/17 TIME: 11:21 Assessment/Plan VTE Prophylaxis VTE Prophylaxis Intervention: other (coumadin) Lines/Catheters IV Catheter Type (from Nrs): Saline Lock Urinary Cath still in place: No Assessment/Plan Assessment/Plan 1. 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 Continue PT/OT/ST, min assist for bed mobility and transfers. Secondary stroke prevention per neurology. 2. History of Afib, status pacemaker. Continue to monitor HRs. Cardiology medically managing, informed regarding events today. Follow up further recommendations. 3. Intermittent hypotension, with history of hypertension. Continue to monitor BP closely, cardiology medically managing. 4. Acute on chronic systolic CHF. Monitor volume status. Cardiology managing. 5. Pleural effusion s/p thoracentesis. Pulmonary status stable, continue to monitor. Continue medical management per internal medicine. 6. Anemia. Continue to monitor hemoglobin/hematocrit. 7. Stage 2 sacral decubitus, healing. Continue offloading and wound care. Subjective 24 Hr Interval Summary Free Text/Dictation Rehab progress note Subjective: Area Operations Director used for this encounter. Patient reported feeling some shortness of breath, 02 sat checked 97% on supplemental 02, HR noted to be tachycardic up to 130s. Patient reports feeling "heart racing", denies any chest pain, no other associated symptoms. ROS: Denies headache, no dizziness, no nausea or vomiting, no chills, no abdominal pain. Exam/Review of Systems Vital Signs Vitals Vital Signs Date Time Temp Pulse Resp B/P Pulse Ox O2 Delivery O2 Flow Rate FiO2 06/21/17 07:34 98.4 75 18 124/60 96 06/21/17 01:08 2.0 06/20/17 20:00 Nasal Cannula 06/17/17 19:32 21 Intake and Output 06/20/17 06/20/17 06/21/17 15:00 23:00 07:00 Intake Total 720 ml 180 ml Balance 720 ml 180 ml Exam General: Awake, alert, no acute distress CV: Tachy s1s2 Lungs: Diminished breath sounds bilaterally, no wheezing Abdomen soft, nontender Extremities nontender, no cyanosis Neuro: Follows simple commands. Antigravity strength BLE. Results Result Diagram: 06/21/17 0635 06/20/17 0638 Results 24 hrs Laboratory Tests Test 06/21/17 06:35 White Blood Count 6.5 Red Blood Count 3.46 L Hemoglobin 10.3 L Hematocrit 31.1 L Mean Corpuscular Volume 89.9 Mean Corpuscular Hemoglobin 29.8 Mean Corpuscular Hemoglobin Concent 33.1 Red Cell Distribution Width 16.6 H Platelet Count 353 # Mean Platelet Volume 11.0 H Neutrophils % 53.4 Lymphocytes % 23.0 Monocytes % 19.9 H Eosinophils % 0.9 Basophils % 0.9 Nucleated Red Blood Cells % 0.0 Neutrophils # 3.5 Lymphocytes # 1.5 Monocytes # 1.3 H Eosinophils # 0.1 Basophils # 0.1 Nucleated Red Blood Cells # 0.0 Prothrombin Time 21.0 H Prothrombin Time Ratio 1.6 INR International Normalized Ratio 1.80 Medications Medications Current Medications Lubiprostone (Amitiza) 24 mcg BID PO Last administered on 06/21/17 09:08; Admin Dose 24 MCG; Start 06/08/17 at 22:49 Nitroglycerin (Nitroglycerin (Sl Tab) 0.4 Mg) 0.4 tab PRN SL ; Start 06/08/17 at 22:49 Pantoprazole (Protonix Tab) 40 mg DAILY@06 PO Last administered on 06/21/17 06: 16; Admin Dose 40 MG; Start 06/08/17 at 22:49 Acetaminophen (Tylenol Tab) 650 mg Q6H PRN PO PAIN AND OR ELEVATED TEMP Last administered on 06/13/17 01:26; Admin Dose 650 MG; Start 06/08/17 at 22:49 Magnesium Oxide (Mag-Ox 400) 400 mg DAILY PO Last administered on 06/21/17 09: 09; Admin Dose 400 MG; Start 06/08/17 at 22:49 Lactobacillus Acidophilus/ Rhamnosus (Culturelle) 1 cap DAILY PO Last administered on 06/21/17 09:09; Admin Dose 1 CAP; Start 06/08/17 at 22:49 Polyethylene Glycol (Miralax) 8.5 gm DAILY PO Last administered on 06/21/17 09: 09; Admin Dose 8.5 GM; Start 06/08/17 at 22:49 Diltiazem HCl (Cardizem) 30 mg Q8 PO Last administered on 06/21/17 06:16; Admin Dose 30 MG; Start 06/08/17 at 22:49 Bisacodyl (Dulcolax Supp) 10 mg Q48H PRN [place] CONSTIPATION Last administered on 21:31; Admin Dose 10 MG; Start 06/08/17 at 22:49 Multivitamins Therapeutic (Theragran) 1 tab DAILY PO Last administered on 09:10; Admin Dose 1 TAB; Start 06/08/17 at 22:49 Folic Acid (Folic Acid) 1 mg DAILY PO Last administered on 06/21/17 09:09; Admin Dose 1 MG; Start 06/08/17 at 22:49 Atorvastatin Calcium (Lipitor) 10 mg DAILY@21 PO Last administered on 06/19/17 20:41; Admin Dose 10 MG; Start 06/09/17 at 21:00 Ergocalciferol (Drisdol) 50,000 unit Sa@09 PO Last administered on 06/21/17 09: 09; Admin Dose 50,000 UNIT; Start 06/14/17 at 09:00 Atenolol (Tenormin) 12.5 mg BID PO Last administered on 06/21/17 09:10; Admin Dose 12.5 MG; Start 06/13/17 at 21:00 Warfarin Sodium (Coumadin) 3 mg DAILY@17 PO Last administered on 06/20/17 18:10 ; Admin Dose 3 MG; Start 06/19/17 at 17:00 Digoxin (Digoxin) 0.25 mg DAILY@13 PO Last administered on 06/20/17 13:15; Admin Dose 0.25 MG; Start 06/19/17 at 13:00 Magnesium Hydroxide (Milk Of Mag) 30 ml DAILY PRN PO CONSTIPATION; Start at 23:00 Lactulose (Enulose) 20 gm DAILY PRN PO CONSTIPATION; Start 06/20/17 at 23:00 SEEMA UMAÑA Jun 21, 2017 11:33
--- NOTE | 2017-06-21 12:19 | PN ---
Date/Time of Note Date/Time of Note DATE: 06/21/17 TIME: 12:19 Assessment/Plan VTE Prophylaxis VTE Prophylaxis Intervention: ambulation Lines/Catheters IV [facility] Type [facility]from [facility] Saline Lock Urinary Cath still in place: No Assessment/Plan Chief Complaint/Hosp Course 1. Muscle weakness 2. AFIB, controlled 3. HTN, controlled 4. ASHD 5. hyponatremia 6. recurrent UTI 7. LOW EF 8. Hx low platelets 9. Anemia 10. urinary incontinence 11. Constipation 12. Vit D deficiency 13. Muscle weakness 14 EDEMA 15 DYSPHAGIA Problems: Assessment/Plan 1. Continue rehabilitation Subjective 24 Hr Interval Summary Cardiovascular: palpitations Exam/Review of Systems Vital Signs Vitals Vital Signs Date Time Temp Pulse Resp B/P Pulse Ox O2 Delivery O2 Flow Rate FiO2 06/21/17 11:29 124 06/21/17 11:24 16 100/56 96 Room Air 06/21/17 07:34 98.4 06/21/17 01:08 2.0 06/17/17 19:32 21 Intake and Output 06/20/17 06/20/17 06/21/17 15:00 23:00 07:00 Intake Total 720 ml 180 ml Balance 720 ml 180 ml Exam Psych: no complaints Neck: supple Respiratory: clear to auscultation Cardiovascular: irregular rhythm Gastrointestinal: soft Results Result Diagram: 06/21/17 0635 06/20/17 0638 Results 24 hrs Laboratory Tests Test 06/21/17 06:35 White Blood Count 6.5 Red Blood Count 3.46 L Hemoglobin 10.3 L Hematocrit 31.1 L Mean Corpuscular Volume 89.9 Mean Corpuscular Hemoglobin 29.8 Mean Corpuscular Hemoglobin Concent 33.1 Red Cell Distribution Width 16.6 H Platelet Count 353 # Mean Platelet Volume 11.0 H Neutrophils % 53.4 Lymphocytes % 23.0 Monocytes % 19.9 H Eosinophils % 0.9 Basophils % 0.9 Nucleated Red Blood Cells % 0.0 Neutrophils # 3.5 Lymphocytes # 1.5 Monocytes # 1.3 H Eosinophils # 0.1 Basophils # 0.1 Nucleated Red Blood Cells # 0.0 Prothrombin Time 21.0 H Prothrombin Time Ratio 1.6 INR International Normalized Ratio 1.80 Medications Medications Current Medications Lubiprostone (Amitiza) 24 mcg BID PO Last administered on 06/21/17t 09:08; Admin Dose 24 MCG; Start 7/23/17 at 22:49 Nitroglycerin (Nitroglycerin (Sl Tab) 0.4 Mg) 0.4 tab PRN SL ; Start 06/08/17 at 22:49 Pantoprazole (Protonix Tab) 40 mg DAILY@06 PO Last administered on 06/21/17 06: 16; Admin Dose 40 MG; Start 06/08/17 at 22:49 Acetaminophen (Tylenol Tab) 650 mg Q6H PRN PO PAIN AND OR ELEVATED TEMP Last administered on 06/13/17 01:26; Admin Dose 650 MG; Start 06/08/17 at 22:49 Magnesium Oxide (Mag-Ox 400) 400 mg DAILY PO Last administered on 06/21/17 09: 09; Admin Dose 400 MG; Start 06/08/17 at 22:49 Lactobacillus Acidophilus/ Rhamnosus (Culturelle) 1 cap DAILY PO Last administered on 06/21/17 09:09; Admin Dose 1 CAP; Start 06/08/17 at 22:49 Polyethylene Glycol (Miralax) 8.5 gm DAILY PO Last administered on 06/21/17 09: 09; Admin Dose 8.5 GM; Start 06/08/17 at 22:49 Diltiazem HCl (Cardizem) 30 mg Q8 PO Last administered on 06/21/17 06:16; Admin Dose 30 MG; Start 06/08/17 at 22:49 Bisacodyl (Dulcolax Supp) 10 mg Q48H PRN [place] CONSTIPATION Last administered on 21:31; Admin Dose 10 MG; Start 06/08/17 at 22:49 Multivitamins Therapeutic (Theragran) 1 tab DAILY PO Last administered on 09:10; Admin Dose 1 TAB; Start 06/08/17 at 22:49 Folic Acid (Folic Acid) 1 mg DAILY PO Last administered on 06/21/17 09:09; Admin Dose 1 MG; Start 06/08/17 at 22:49 Atorvastatin Calcium (Lipitor) 10 mg DAILY@21 PO Last administered on 06/19/17 20:41; Admin Dose 10 MG; Start 06/09/17 at 21:00 Ergocalciferol (Drisdol) 50,000 unit Sa@09 PO Last administered on 06/21/17 09: 09; Admin Dose 50,000 UNIT; Start 06/14/17 at 09:00 Atenolol (Tenormin) 12.5 mg BID PO Last administered on 06/21/17 09:10; Admin Dose 12.5 MG; Start 06/13/17 at 21:00 Warfarin Sodium (Coumadin) 3 mg DAILY@17 PO Last administered on 06/20/17 18:10 ; Admin Dose 3 MG; Start 06/19/17 at 17:00 Digoxin (Digoxin) 0.25 mg DAILY@13 PO Last administered on 06/20/17 13:15; Admin Dose 0.25 MG; Start 06/19/17 at 13:00 Magnesium Hydroxide (Milk Of Mag) 30 ml DAILY PRN PO CONSTIPATION; Start at 23:00 Lactulose (Enulose) 20 gm DAILY PRN PO CONSTIPATION; Start 06/20/17 at 23:00 RENAY TRAN Jun 21, 2017 12:19
[2017-06-21] MEDS: DIGOXIN 0.25 MG TAB PO SCH (12:47)
--- NOTE | 2017-06-21 12:54 | CONS ---
Date/Time of Note Date/Time of Note DATE: 06/21/17 TIME: 12:50 Assessment/Plan Assessment/Plan Additional Assessment/Plan Acute on chronic Systolic heart failure with EF 40% PAF s/p PPM Dyslipidemia TIA Pleural effusion Coagulopathy UTI Hypothyroidism Anemia She had episodes of sinus tachycardia post therapy now stable Continue Diltiazem and Digoxin Continue Atenolol Continue Coumadin Continue Levothyroxine Continue Lipitor Consultation Date/Type/Reason Admit Date/Time Jun 08, 2017 at 21:30 Constitutional: improved, no complaints Respiratory: no complaints Cardiovascular: palpitations Gastrointestinal: no complaints Genitourinary: no complaints Musculoskeletal: no complaints Psychological: no complaints Past Surgical History Past Surgical Hx: cholecystectomy, other Social History Smoking Status: Never smoker Exam/Review of Systems Vital Signs Vitals Vital Signs Date Time Temp Pulse Resp B/P Pulse Ox O2 Delivery O2 Flow Rate FiO2 06/21/17 12:48 74 16 111/58 97 Nasal Cannula 2.0 06/21/17 07:34 98.4 06/17/17 19:32 21 Intake and Output 06/20/17 06/20/17 06/21/17 15:00 23:00 07:00 Intake Total 720 ml 180 ml Balance 720 ml 180 ml Exam Constitutional: alert, oriented Head: atraumatic, normocephalic Neck: non-tender, supple Respiratory: clear to auscultation Cardiovascular: regular rate and rhythm Gastrointestinal: nl liver, spleen, non-tender, soft Extremities: normal pulses Results Result Diagram: 06/21/17 0635 06/20/17 0638 Results 24 hrs Laboratory Tests Test 06/21/17 06:35 White Blood Count 6.5 Red Blood Count 3.46 L Hemoglobin 10.3 L Hematocrit 31.1 L Mean Corpuscular Volume 89.9 Mean Corpuscular Hemoglobin 29.8 Mean Corpuscular Hemoglobin Concent 33.1 Red Cell Distribution Width 16.6 H Platelet Count 353 # Mean Platelet Volume 11.0 H Neutrophils % 53.4 Lymphocytes % 23.0 Monocytes % 19.9 H Eosinophils % 0.9 Basophils % 0.9 Nucleated Red Blood Cells % 0.0 Neutrophils # 3.5 Lymphocytes # 1.5 Monocytes # 1.3 H Eosinophils # 0.1 Basophils # 0.1 Nucleated Red Blood Cells # 0.0 Prothrombin Time 21.0 H Prothrombin Time Ratio 1.6 INR International Normalized Ratio 1.80 Medications Medications Current Medications Lubiprostone (Amitiza) 24 mcg BID PO Last administered on 06/21/17 09:08; Admin Dose 24 MCG; Start 06/08/17 at 22:49 Nitroglycerin (Nitroglycerin (Sl Tab) 0.4 Mg) 0.4 tab PRN SL ; Start 06/08/17 at 22:49 Pantoprazole (Protonix Tab) 40 mg DAILY@06 PO Last administered on 06/21/17 06: 16; Admin Dose 40 MG; Start 06/08/17 at 22:49 Acetaminophen (Tylenol Tab) 650 mg Q6H PRN PO PAIN AND OR ELEVATED TEMP Last administered on 06/13/17 01:26; Admin Dose 650 MG; Start 06/08/17 at 22:49 Magnesium Oxide (Mag-Ox 400) 400 mg DAILY PO Last administered on 06/21/17 09: 09; Admin Dose 400 MG; Start 06/08/17 at 22:49 Lactobacillus Acidophilus/ Rhamnosus (Culturelle) 1 cap DAILY PO Last administered on 06/21/17 09:09; Admin Dose 1 CAP; Start 06/08/17 at 22:49 Polyethylene Glycol (Miralax) 8.5 gm DAILY PO Last administered on 06/21/17 09: 09; Admin Dose 8.5 GM; Start 06/08/17 at 22:49 Diltiazem HCl (Cardizem) 30 mg Q8 PO Last administered on 06/21/17 06:16; Admin Dose 30 MG; Start 06/08/17 at 22:49 Bisacodyl (Dulcolax Supp) 10 mg Q48H PRN [place] CONSTIPATION Last administered on 21:31; Admin Dose 10 MG; Start 06/08/17 at 22:49 Multivitamins Therapeutic (Theragran) 1 tab DAILY PO Last administered on 09:10; Admin Dose 1 TAB; Start 06/08/17 at 22:49 Folic Acid (Folic Acid) 1 mg DAILY PO Last administered on 06/21/17 09:09; Admin Dose 1 MG; Start 06/08/17 at 22:49 Atorvastatin Calcium (Lipitor) 10 mg DAILY@21 PO Last administered on 06/19/17 20:41; Admin Dose 10 MG; Start 06/09/17 at 21:00 Ergocalciferol (Drisdol) 50,000 unit Sa@09 PO Last administered on 06/21/17 09: 09; Admin Dose 50,000 UNIT; Start 06/14/17 at 09:00 Atenolol (Tenormin) 12.5 mg BID PO Last administered on 06/21/17 09:10; Admin Dose 12.5 MG; Start 06/13/17 at 21:00 Warfarin Sodium (Coumadin) 3 mg DAILY@17 PO Last administered on 06/20/17 18:10 ; Admin Dose 3 MG; Start 06/19/17 at 17:00 Digoxin (Digoxin) 0.25 mg DAILY@13 PO Last administered on 06/21/17 12:47; Admin Dose 0.25 MG; Start 06/19/17 at 13:00 Magnesium Hydroxide (Milk Of Mag) 30 ml DAILY PRN PO CONSTIPATION; Start at 23:00 Lactulose (Enulose) 20 gm DAILY PRN PO CONSTIPATION; Start 06/20/17 at 23:00 RUSS CONNORS M.D. Jun 21, 2017 12:54
[2017-06-21] MEDS ORDERED: VITAMIN A & D 5 GM OINT PACKET TOP ONE (15:34)
[2017-06-21] MEDS: WARFARIN 3 MG TAB PO SCH (16:41)
[2017-06-21] MEDS: ATORVASTATIN 10 MG TAB PO SCH (20:44)
[2017-06-22 01:55] VITALS: BP 125/58; RESP 18
[2017-06-22 05:55] VITALS: BP 131/64; PULSE 75; RESP 18
[2017-06-22] MEDS: DILTIAZEM 30 MG TAB PO SCH ×3 (05:57→22:00)
[2017-06-22] MEDS: LEVOTHYROXINE 75 MCG TAB PO SCH (05:57)
[2017-06-22] MEDS: PANTOPRAZOLE (EC) 40 MG TAB PO SCH (05:57)
[2017-06-22 07:28] LABS: INR 1.67; PROTIME 19.8 Sec (12.2-14.2); PT RATIO 1.5
[2017-06-22] MEDS: LACTOBACILLUS RHAMNOSUS CAP PO SCH (08:23)
[2017-06-22] MEDS: FOLIC ACID 1 MG TAB PO SCH (08:23)
[2017-06-22] MEDS: MULTIVITAMINS THERAPEUTIC TAB PO SCH (08:23)
[2017-06-22] MEDS: MAGNESIUM OXIDE 400 MG TAB PO SCH (08:23)
[2017-06-22] MEDS: ATENOLOL 25 MG TAB PO SCH ×2 (08:24→20:37)
[2017-06-22] MEDS: LUBIPROSTONE 24 MCG CAP PO SCH ×2 (08:24→20:34)
[2017-06-22] MEDS: POLYETHYLENE GLYCOL 17 GM PACKET PO SCH (08:24)
[2017-06-22 08:29] VITALS: BP 111/55; PULSE 74; RESP 16
--- NOTE | 2017-06-22 11:22 | PN ---
Date/Time of Note Date/Time of Note DATE: 06/22/17 TIME: 11:20 Assessment/Plan VTE Prophylaxis VTE Prophylaxis Intervention: other (coumadin) Lines/Catheters IV Catheter Type (from Nrs): Saline Lock Urinary Cath still in place: No Assessment/Plan Assessment/Plan 1. 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 Continue PT/OT/ST. SPV for grooming, max assist lower body dressing. Modified diet per ST, aspiration precautions. Secondary stroke prevention per neurology. 2. History of Afib, status pacemaker. Cardiology medically managing. Continue to closely monitor HRs, better today. 3. Intermittent hypotension. Continue to monitor BP closely, cardiology following. 4. Acute on chronic systolic CHF. Monitor volume status. Cardiology managing. 5. Pleural effusion s/p thoracentesis. Pulmonary status stable, continue to monitor. Continue medical management per internal medicine. 6. Anemia. Stable on last labs, monitor. 7. Stage 2 sacral decubitus healing. Continue offloading strategies and wound care. Subjective 24 Hr Interval Summary Free Text/Dictation Rehab progress note Subjective: Vb Developer used for this encounter. Denies any acute complaints. ROS: Denies chest pain, no palpitations, no shortness, no abdominal pain, no nausea or vomiting, no chills. Exam/Review of Systems Vital Signs Vitals Vital Signs Date Time Temp Pulse Resp B/P Pulse Ox O2 Delivery O2 Flow Rate FiO2 06/22/17 08:29 74 16 111/55 96 Nasal Cannula 2.0 06/22/17 01:55 98.2 Intake and Output 06/21/17 06/21/17 06/22/17 15:00 23:00 07:00 Intake Total 800 ml 850 ml 250 ml Output Total 400 ml 500 ml 330 ml Balance 400 ml 350 ml -80 ml Exam General: Awake, alert, no acute distress, nasal cannula in place CV: Regular rate, s1s2 Lungs: Respirations are nonlabored, no wheezing or crackles Abdomen soft, nontender Extremities nontender, no cyanosis Neuro: No focal changes. Follows simple commands. Results Result Diagram: 06/21/17 0635 06/20/17 0638 Results 24 hrs Laboratory Tests Test 06/22/17 06:29 Prothrombin Time 19.8 H Prothrombin Time Ratio 1.5 INR International Normalized Ratio 1.67 Medications Medications Current Medications Lubiprostone (Amitiza) 24 mcg BID PO Last administered on 06/22/17 08:24; Admin Dose 24 MCG; Start 06/08/17 at 22:49 Nitroglycerin (Nitroglycerin (Sl Tab) 0.4 Mg) 0.4 tab PRN SL ; Start 06/08/17 at 22:49 Pantoprazole (Protonix Tab) 40 mg DAILY@06 PO Last administered on 06/22/17 05: 57; Admin Dose 40 MG; Start 06/08/17 at 22:49 Acetaminophen (Tylenol Tab) 650 mg Q6H PRN PO PAIN AND OR ELEVATED TEMP Last administered on 06/13/17 01:26; Admin Dose 650 MG; Start 06/08/17 at 22:49 Magnesium Oxide (Mag-Ox 400) 400 mg DAILY PO Last administered on 06/22/17 08: 23; Admin Dose 400 MG; Start 06/08/17 at 22:49 Lactobacillus Acidophilus/ Rhamnosus (Culturelle) 1 cap DAILY PO Last administered on 06/22/17 08:23; Admin Dose 1 CAP; Start 06/08/17 at 22:49 Polyethylene Glycol (Miralax) 8.5 gm DAILY PO Last administered on 06/22/17 08: 24; Admin Dose 8.5 GM; Start 06/08/17 at 22:49 Diltiazem HCl (Cardizem) 30 mg Q8 PO Last administered on 06/22/17 05:57; Admin Dose 30 MG; Start 06/08/17 at 22:49 Bisacodyl (Dulcolax Supp) 10 mg Q48H PRN [place] CONSTIPATION Last administered on 21:31; Admin Dose 10 MG; Start 06/08/17 at 22:49 Multivitamins Therapeutic (Theragran) 1 tab DAILY PO Last administered on 08:23; Admin Dose 1 TAB; Start 06/08/17 at 22:49 Folic Acid (Folic Acid) 1 mg DAILY PO Last administered on 06/22/17 08:23; Admin Dose 1 MG; Start 06/08/17 at 22:49 Atorvastatin Calcium (Lipitor) 10 mg DAILY@21 PO Last administered on 06/21/17 20:44; Admin Dose 10 MG; Start 06/09/17 at 21:00 Ergocalciferol (Drisdol) 50,000 unit Sa@09 PO Last administered on 06/21/17 09: 09; Admin Dose 50,000 UNIT; Start 06/14/17 at 09:00 Atenolol (Tenormin) 12.5 mg BID PO Last administered on 06/21/17 20:46; Admin Dose 12.5 MG; Start 06/13/17 at 21:00 Warfarin Sodium (Coumadin) 3 mg DAILY@17 PO Last administered on 06/21/17 16:41 ; Admin Dose 3 MG; Start 06/19/17 at 17:00 Digoxin (Digoxin) 0.25 mg DAILY@13 PO Last administered on 06/21/17 12:47; Admin Dose 0.25 MG; Start 06/19/17 at 13:00 Magnesium Hydroxide (Milk Of Mag) 30 ml DAILY PRN PO CONSTIPATION Last administered on 06/22/17 08:24; Admin Dose 30 ML; Start 06/20/17 at 23:00 Lactulose (Enulose) 20 gm DAILY PRN PO CONSTIPATION; Start 06/20/17 at 23:00 SEEMA UMAÑA Jun 22, 2017 11:22
[2017-06-22 12:20] VITALS: BP 127/59; PULSE 74; RESP 16
[2017-06-22] MEDS: DIGOXIN 0.25 MG TAB PO SCH (12:21)
--- NOTE | 2017-06-22 14:18 | CONS ---
Date/Time of Note Date/Time of Note DATE: 06/22/17 TIME: 14:17 Assessment/Plan Assessment/Plan Additional Assessment/Plan Acute on chronic Systolic heart failure with EF 40% PAF s/p PPM Dyslipidemia TIA Pleural effusion Coagulopathy UTI Hypothyroidism Anemia INR 1.5 BP controlled She had episodes of sinus tachycardia post therapy now stable Continue Diltiazem and Digoxin Continue Atenolol Continue Coumadin Continue Levothyroxine Continue Lipitor Consultation Date/Type/Reason Admit Date/Time Jun 08, 2017 at 21:30 Initial Consult Date Type of Consultation: cardiology Referring Provider: DUANE NGUYỄN MD Exam/Review of Systems Vital Signs Vitals Vital Signs Date Time Temp Pulse Resp B/P Pulse Ox O2 Delivery O2 Flow Rate FiO2 06/22/17 12:20 74 16 127/59 97 2.0 06/22/17 08:29 Nasal Cannula 06/22/17 01:55 98.2 Intake and Output 06/21/17 06/21/17 06/22/17 15:00 23:00 07:00 Intake Total 800 ml 850 ml 250 ml Output Total 400 ml 500 ml 330 ml Balance 400 ml 350 ml -80 ml Exam Constitutional: alert, oriented Head: atraumatic, normocephalic Neck: non-tender, supple Respiratory: clear to auscultation Cardiovascular: regular rate and rhythm Gastrointestinal: nl liver, spleen, non-tender, soft Extremities: normal pulses Results Result Diagram: 06/21/17 0635 06/20/17 0638 Results 24 hrs Laboratory Tests Test 06/22/17 06:29 Prothrombin Time 19.8 H Prothrombin Time Ratio 1.5 INR International Normalized Ratio 1.67 Medications Medications Current Medications Lubiprostone (Amitiza) 24 mcg BID PO Last administered on 06/22/17 08:24; Admin Dose 24 MCG; Start 06/08/17 at 22:49 Nitroglycerin (Nitroglycerin (Sl Tab) 0.4 Mg) 0.4 tab PRN SL ; Start 06/08/17 at 22:49 Pantoprazole (Protonix Tab) 40 mg DAILY@06 PO Last administered on 06/22/17 05: 57; Admin Dose 40 MG; Start 06/08/17 at 22:49 Acetaminophen (Tylenol Tab) 650 mg Q6H PRN PO PAIN AND OR ELEVATED TEMP Last administered on 06/13/17 01:26; Admin Dose 650 MG; Start 06/08/17 at 22:49 Magnesium Oxide (Mag-Ox 400) 400 mg DAILY PO Last administered on 06/22/17 08: 23; Admin Dose 400 MG; Start 06/08/17 at 22:49 Lactobacillus Acidophilus/ Rhamnosus (Culturelle) 1 cap DAILY PO Last administered on 06/22/17 08:23; Admin Dose 1 CAP; Start 06/08/17 at 22:49 Polyethylene Glycol (Miralax) 8.5 gm DAILY PO Last administered on 06/22/17 08: 24; Admin Dose 8.5 GM; Start 06/08/17 at 22:49 Diltiazem HCl (Cardizem) 30 mg Q8 PO Last administered on 06/22/17 13:46; Admin Dose 30 MG; Start 06/08/17 at 22:49 Bisacodyl (Dulcolax Supp) 10 mg Q48H PRN [place] CONSTIPATION Last administered on 21:31; Admin Dose 10 MG; Start 06/08/17 at 22:49 Multivitamins Therapeutic (Theragran) 1 tab DAILY PO Last administered on 08:23; Admin Dose 1 TAB; Start 06/08/17 at 22:49 Folic Acid (Folic Acid) 1 mg DAILY PO Last administered on 06/22/17 08:23; Admin Dose 1 MG; Start 06/08/17 at 22:49 Atorvastatin Calcium (Lipitor) 10 mg DAILY@21 PO Last administered on 06/21/17 20:44; Admin Dose 10 MG; Start 06/09/17 at 21:00 Ergocalciferol (Drisdol) 50,000 unit Sa@09 PO Last administered on 06/21/17 09: 09; Admin Dose 50,000 UNIT; Start 06/14/17 at 09:00 Atenolol (Tenormin) 12.5 mg BID PO Last administered on 06/21/17 20:46; Admin Dose 12.5 MG; Start 06/13/17 at 21:00 Warfarin Sodium (Coumadin) 3 mg DAILY@17 PO Last administered on 06/21/17 16:41 ; Admin Dose 3 MG; Start 06/19/17 at 17:00 Digoxin (Digoxin) 0.25 mg DAILY@13 PO Last administered on 06/22/17 12:21; Admin Dose 0.25 MG; Start 06/19/17 at 13:00 Magnesium Hydroxide (Milk Of Mag) 30 ml DAILY PRN PO CONSTIPATION Last administered on 06/22/17 08:24; Admin Dose 30 ML; Start 06/20/17 at 23:00 Lactulose (Enulose) 20 gm DAILY PRN PO CONSTIPATION; Start 06/20/17 at 23:00 RUSS CONNORS M.D. Jun 22, 2017 14:17
[2017-06-22] MEDS: WARFARIN 3 MG TAB PO SCH (16:48)
[2017-06-22] MEDS ORDERED: WARFARIN 1 MG TAB PO ONE (18:00)
--- NOTE | 2017-06-22 18:17 | CONS ---
Date/Time of Note Date/Time of Note DATE: 06/22/17 TIME: 18:16 Assessment/Plan Assessment/Plan Chief Complaint/Hosp Course 1. SEPSIS resolving 2. AFIB, controlled 3. HTN, controlled 4. ASHD 5. hyponatremia 6. recurrent UTI 7. LOW EF 8. low platelets HX 9. Anemia 10. urinary incontinence 11. Constipation 12. Vit d deficiency 13. Muscle weakness 14 EDEMA BETTER 15 DYSPHAGIA BETTER PLAN PT OT STABLE COUMADIN Problems: Consultation Date/Type/Reason Admit Date/Time Jun 08, 2017 at 21:30 Initial Consult Date Type of Consultation: RENAL Referring Provider: DUANE NGUYỄN MD 24 HR Interval Summary Constitutional: other (WEAKNESS) Exam/Review of Systems Vital Signs Vitals Vital Signs Date Time Temp Pulse Resp B/P Pulse Ox O2 Delivery O2 Flow Rate FiO2 06/22/17 12:20 74 16 127/59 97 2.0 06/22/17 08:29 Nasal Cannula 06/22/17 01:55 98.2 Intake and Output 06/21/17 06/21/17 06/22/17 15:00 23:00 07:00 Intake Total 800 ml 850 ml 250 ml Output Total 400 ml 500 ml 330 ml Balance 400 ml 350 ml -80 ml Exam Respiratory: clear to auscultation Cardiovascular: regular rate and rhythm Gastrointestinal: soft Musculoskeletal: nl extremities to inspection Extremities: normal pulses Results Result Diagram: 06/21/17 0635 06/20/17 0638 Results 24 hrs Laboratory Tests Test 06/22/17 06:29 Prothrombin Time 19.8 H Prothrombin Time Ratio 1.5 INR International Normalized Ratio 1.67 Medications Medications Current Medications Lubiprostone (Amitiza) 24 mcg BID PO Last administered on 06/22/17 08:24; Admin Dose 24 MCG; Start 06/08/17 at 22:49 Nitroglycerin (Nitroglycerin (Sl Tab) 0.4 Mg) 0.4 tab PRN SL ; Start 06/08/17 at 22:49 Pantoprazole (Protonix Tab) 40 mg DAILY@06 PO Last administered on 06/22/17 05: 57; Admin Dose 40 MG; Start 06/08/17 at 22:49 Acetaminophen (Tylenol Tab) 650 mg Q6H PRN PO PAIN AND OR ELEVATED TEMP Last administered on 06/13/17 01:26; Admin Dose 650 MG; Start 06/08/17 at 22:49 Magnesium Oxide (Mag-Ox 400) 400 mg DAILY PO Last administered on 06/22/17 08: 23; Admin Dose 400 MG; Start 06/08/17 at 22:49 Lactobacillus Acidophilus/ Rhamnosus (Culturelle) 1 cap DAILY PO Last administered on 06/22/17 08:23; Admin Dose 1 CAP; Start 06/08/17 at 22:49 Polyethylene Glycol (Miralax) 8.5 gm DAILY PO Last administered on 06/22/17 08: 24; Admin Dose 8.5 GM; Start 06/08/17 at 22:49 Diltiazem HCl (Cardizem) 30 mg Q8 PO Last administered on 06/22/17 13:46; Admin Dose 30 MG; Start 06/08/17 at 22:49 Bisacodyl (Dulcolax Supp) 10 mg Q48H PRN [place] CONSTIPATION Last administered on 21:31; Admin Dose 10 MG; Start 06/08/17 at 22:49 Multivitamins Therapeutic (Theragran) 1 tab DAILY PO Last administered on 08:23; Admin Dose 1 TAB; Start 06/08/17 at 22:49 Folic Acid (Folic Acid) 1 mg DAILY PO Last administered on 06/22/17 08:23; Admin Dose 1 MG; Start 06/08/17 at 22:49 Atorvastatin Calcium (Lipitor) 10 mg DAILY@21 PO Last administered on 06/21/17 20:44; Admin Dose 10 MG; Start 06/09/17 at 21:00 Ergocalciferol (Drisdol) 50,000 unit Sa@09 PO Last administered on 06/21/17 09: 09; Admin Dose 50,000 UNIT; Start 06/14/17 at 09:00 Atenolol (Tenormin) 12.5 mg BID PO Last administered on 06/21/17 20:46; Admin Dose 12.5 MG; Start 06/13/17 at 21:00 Digoxin (Digoxin) 0.25 mg DAILY@13 PO Last administered on 06/22/17 12:21; Admin Dose 0.25 MG; Start 06/19/17 at 13:00 Magnesium Hydroxide (Milk Of Mag) 30 ml DAILY PRN PO CONSTIPATION Last administered on 06/22/17 08:24; Admin Dose 30 ML; Start 06/20/17 at 23:00 Lactulose (Enulose) 20 gm DAILY PRN PO CONSTIPATION; Start 06/20/17 at 23:00 Warfarin Sodium (Coumadin) 4 mg DAILY@17 PO ; Start 06/23/17 at 17:00 DUANE NGUYỄN MD Jun 22, 2017 18:16
[2017-06-22] MEDS: ATORVASTATIN 10 MG TAB PO SCH (20:34)
[2017-06-22 21:00] VITALS: BP 111/53; RESP 18
[2017-06-23] MEDS: LEVOTHYROXINE 75 MCG TAB PO SCH (06:24)
[2017-06-23] MEDS: PANTOPRAZOLE (EC) 40 MG TAB PO SCH (06:24)
[2017-06-23] MEDS: DILTIAZEM 30 MG TAB PO SCH ×3 (06:25→22:03)
[2017-06-23 07:30] VITALS: BP 127/60; RESP 20
[2017-06-23 07:49] LABS: INR 1.98; PROTIME 22.7 Sec (12.2-14.2); PT RATIO 1.8
[2017-06-23] MEDS: ATENOLOL 25 MG TAB PO SCH ×2 (09:00→20:24)
[2017-06-23] MEDS: LACTOBACILLUS RHAMNOSUS CAP PO SCH (09:14)
[2017-06-23] MEDS: FOLIC ACID 1 MG TAB PO SCH (09:14)
[2017-06-23] MEDS: LUBIPROSTONE 24 MCG CAP PO SCH ×2 (09:14→20:23)
[2017-06-23] MEDS: MAGNESIUM OXIDE 400 MG TAB PO SCH (09:15)
[2017-06-23] MEDS: MULTIVITAMINS THERAPEUTIC TAB PO SCH (09:15)
[2017-06-23] MEDS: POLYETHYLENE GLYCOL 17 GM PACKET PO SCH (09:15)
--- NOTE | 2017-06-23 09:53 | CONS ---
Date/Time of Note Date/Time of Note DATE: 06/23/17 TIME: 09:51 Assessment/Plan Assessment/Plan Additional Assessment/Plan 1.tachycardia-? S Tach/PAF-overall improved when receives BB/CCB regimen [facility] device - stable now 2.Hypotension- improved. Rx as needed 3.AF-currently reasonable rate control - stable 4.Fevers/leukcytosis-increased significantly - Rx with anti-Bx 5.TIA/CVA - cn't rehab. 6.UTI - on anti-bx 7.PPM-s/p interogation with proper function 8. MVR - on RX 9. 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 Currently stable 10. CHF-systolic acute on chronic LVEF 40% by echo this admit Consultation Date/Type/Reason Admit Date/Time Jun 08, 2017 at 21:30 Type of Consultation: RENAL Referring Provider: DUANE NGUYỄN MD 24 HR Interval Summary Free Text/Dictation NO acte events - improved fluid status - No CP now ROS: No fever, no chills, no nausea, no vomiting, no diarrhea/constipation No recent weight changes No chest pain, no PND, no orthopnea No dizziness, blurred vision No thirst, no heat or cold intolerance Exam/Review of Systems Vital Signs Vitals Vital Signs Date Time Temp Pulse Resp B/P Pulse Ox O2 Delivery O2 Flow Rate FiO2 06/22/17 21:00 98.2 76 18 111/53 97 06/22/17 20:00 Nasal Cannula 2.0 Intake and Output 06/22/17 06/22/17 06/23/17 15:00 23:00 07:00 Intake Total 240 ml 250 ml Output Total 400 ml 200 ml 650 ml Balance -160 ml 50 ml -650 ml Exam General: WN/WD/NAD, AOx 3 HEENT: Unicetric/atraumatic/EOMI ( follow commands) NECK: JVD elevated, no thyromegaly Lymph: no lymphadenopathy HEART: regular with no S3, II/ systolic murmur at apex LUNGS: Coarse sounds ABD: soft, NT, ND, +BS : Intact Neuro: h/o CVA SKIN: chronic changes EXT: trace edema Results Result Diagram: 06/21/17 0635 06/20/17 0638 Results 24 hrs Laboratory Tests Test 06/23/17 06:38 Prothrombin Time 22.7 H Prothrombin Time Ratio 1.8 INR International Normalized Ratio 1.98 Medications Medications Current Medications Lubiprostone (Amitiza) 24 mcg BID PO Last administered on 06/23/17 09:14; Admin Dose 24 MCG; Start 06/08/17 at 22:49 Nitroglycerin (Nitroglycerin (Sl Tab) 0.4 Mg) 0.4 tab PRN SL ; Start 06/08/17 at 22:49 Pantoprazole (Protonix Tab) 40 mg DAILY@06 PO Last administered on 06/23/17 06: 24; Admin Dose 40 MG; Start 06/08/17 at 22:49 Acetaminophen (Tylenol Tab) 650 mg Q6H PRN PO PAIN AND OR ELEVATED TEMP Last administered on 06/13/17 01:26; Admin Dose 650 MG; Start 06/08/17 at 22:49 Magnesium Oxide (Mag-Ox 400) 400 mg DAILY PO Last administered on 06/23/17 09: 15; Admin Dose 400 MG; Start 06/08/17 at 22:49 Lactobacillus Acidophilus/ Rhamnosus (Culturelle) 1 cap DAILY PO Last administered on 06/23/17 09:14; Admin Dose 1 CAP; Start 06/08/17 at 22:49 Polyethylene Glycol (Miralax) 8.5 gm DAILY PO Last administered on 06/23/17 09: 15; Admin Dose 8.5 GM; Start 06/08/17 at 22:49 Diltiazem HCl (Cardizem) 30 mg Q8 PO Last administered on 06/23/17 06:25; Admin Dose 30 MG; Start 06/08/17 at 22:49 Bisacodyl (Dulcolax Supp) 10 mg Q48H PRN [place] CONSTIPATION Last administered on 21:31; Admin Dose 10 MG; Start 06/08/17 at 22:49 Multivitamins Therapeutic (Theragran) 1 tab DAILY PO Last administered on 09:15; Admin Dose 1 TAB; Start 06/08/17 at 22:49 Folic Acid (Folic Acid) 1 mg DAILY PO Last administered on 06/23/17 09:14; Admin Dose 1 MG; Start 06/08/17 at 22:49 Atorvastatin Calcium (Lipitor) 10 mg DAILY@21 PO Last administered on 06/22/17 20:34; Admin Dose 10 MG; Start 06/09/17 at 21:00 Ergocalciferol (Drisdol) 50,000 unit Sa@09 PO Last administered on 06/21/17 09: 09; Admin Dose 50,000 UNIT; Start 06/14/17 at 09:00 Atenolol (Tenormin) 12.5 mg BID PO Last administered on 06/21/17 20:46; Admin Dose 12.5 MG; Start 06/13/17 at 21:00 Digoxin (Digoxin) 0.25 mg DAILY@13 PO Last administered on 06/22/17 12:21; Admin Dose 0.25 MG; Start 06/19/17 at 13:00 Magnesium Hydroxide (Milk Of Mag) 30 ml DAILY PRN PO CONSTIPATION Last administered on 06/22/17 08:24; Admin Dose 30 ML; Start 06/20/17 at 23:00 Lactulose (Enulose) 20 gm DAILY PRN PO CONSTIPATION; Start 06/20/17 at 23:00 Warfarin Sodium (Coumadin) 4 mg DAILY@17 PO ; Start 06/23/17 at 17:00 JESSA JUNG MD Jun 23, 2017 09:53
--- NOTE | 2017-06-23 13:32 | CONS ---
Date/Time of Note Date/Time of Note DATE: 06/23/17 TIME: 13:32 Consult Date/Type/Reason Admit Date/Time Jun 08, 2017 at 21:30 Type of Consultation: RENAL Ordering Provider: DUANE NGUYỄN MD Objective Vital Signs Date Time Temp Pulse Resp B/P Pulse Ox O2 Delivery O2 Flow Rate FiO2 06/22/17 21:00 98.2 76 18 111/53 97 06/22/17 20:00 Nasal Cannula 2.0 Intake and Output 06/22/17 06/22/17 06/23/17 15:00 23:00 07:00 Intake Total 240 ml 250 ml Output Total 400 ml 200 ml 650 ml Balance -160 ml 50 ml -650 ml INTERDISCIPLINARY TEAM CONFERENCE BOWEL- Cont BLADDER-Cont SKIN- intact OT- DRESSING-min BATHING-min TOILETING-min PT- BED MOBILITY-min TRANSFERS-min AMBULATION-cga 65 feet W.C. MOBILITY-sba SPEECH- COGNITION-min/mod A/P- Interdisciplinary team conference held today. Please see interdisciplinary sheet. Working toward d.c. on 06/24 with post discharge follow up of physical therapy, occupational Results/Medications Result Diagram: 06/21/17 0635 06/20/17 0638 Results 24 hrs Laboratory Tests Test 06/23/17 06:38 Prothrombin Time 22.7 H Prothrombin Time Ratio 1.8 INR International Normalized Ratio 1.98 Medications Current Medications Lubiprostone (Amitiza) 24 mcg BID PO Last administered on 06/23/17 09:14; Admin Dose 24 MCG; Start 06/08/17 at 22:49 Nitroglycerin (Nitroglycerin (Sl Tab) 0.4 Mg) 0.4 tab PRN SL ; Start 06/08/17 at 22:49 Pantoprazole (Protonix Tab) 40 mg DAILY@06 PO Last administered on 06/23/17 06: 24; Admin Dose 40 MG; Start 06/08/17 at 22:49 Acetaminophen (Tylenol Tab) 650 mg Q6H PRN PO PAIN AND OR ELEVATED TEMP Last administered on 06/13/17 01:26; Admin Dose 650 MG; Start 06/08/17 at 22:49 Magnesium Oxide (Mag-Ox 400) 400 mg DAILY PO Last administered on 06/23/17 09: 15; Admin Dose 400 MG; Start 06/08/17 at 22:49 Lactobacillus Acidophilus/ Rhamnosus (Culturelle) 1 cap DAILY PO Last administered on 06/23/17 09:14; Admin Dose 1 CAP; Start 06/08/17 at 22:49 Polyethylene Glycol (Miralax) 8.5 gm DAILY PO Last administered on 06/23/17 09: 15; Admin Dose 8.5 GM; Start 06/08/17 at 22:49 Diltiazem HCl (Cardizem) 30 mg Q8 PO Last administered on 06/23/17 06:25; Admin Dose 30 MG; Start 06/08/17 at 22:49 Bisacodyl (Dulcolax Supp) 10 mg Q48H PRN [place] CONSTIPATION Last administered on 21:31; Admin Dose 10 MG; Start 06/08/17 at 22:49 Multivitamins Therapeutic (Theragran) 1 tab DAILY PO Last administered on 09:15; Admin Dose 1 TAB; Start 06/08/17 at 22:49 Folic Acid (Folic Acid) 1 mg DAILY PO Last administered on 06/23/17 09:14; Admin Dose 1 MG; Start 06/08/17 at 22:49 Atorvastatin Calcium (Lipitor) 10 mg DAILY@21 PO Last administered on 06/22/17 20:34; Admin Dose 10 MG; Start 06/09/17 at 21:00 Ergocalciferol (Drisdol) 50,000 unit Sa@09 PO Last administered on 06/21/17 09: 09; Admin Dose 50,000 UNIT; Start 06/14/17 at 09:00 Atenolol (Tenormin) 12.5 mg BID PO Last administered on 06/21/17 20:46; Admin Dose 12.5 MG; Start 06/13/17 at 21:00 Digoxin (Digoxin) 0.25 mg DAILY@13 PO Last administered on 06/22/17 12:21; Admin Dose 0.25 MG; Start 06/19/17 at 13:00 Magnesium Hydroxide (Milk Of Mag) 30 ml DAILY PRN PO CONSTIPATION Last administered on 06/22/17 08:24; Admin Dose 30 ML; Start 06/20/17 at 23:00 Lactulose (Enulose) 20 gm DAILY PRN PO CONSTIPATION; Start 06/20/17 at 23:00 Warfarin Sodium (Coumadin) 4 mg DAILY@17 PO ; Start 06/23/17 at 17:00 ROBY RANGEL MD Jun 23, 2017 13:32
[2017-06-23 14:00] VITALS: BP 108/53; RESP 20
[2017-06-23] MEDS ORDERED: WARFARIN 2 MG TAB PO SCH (17:00)
[2017-06-23] MEDS: DIGOXIN 0.25 MG TAB PO SCH (17:18)
[2017-06-23 20:00] VITALS: BP 110/58; RESP 18
[2017-06-23] MEDS: ATORVASTATIN 10 MG TAB PO SCH (20:23)
--- NOTE | 2017-06-23 23:39 | CONS ---
Date/Time of Note Date/Time of Note DATE: 06/23/17 TIME: 23:38 Assessment/Plan Assessment/Plan Chief Complaint/Hosp Course Chief Complaint/Hosp Course 1. SEPSIS resolving 2. AFIB, controlled 3. HTN, controlled 4. ASHD 5. hyponatremia 6. recurrent UTI 7. LOW EF 8. low platelets HX 9. Anemia 10. urinary incontinence 11. Constipation 12. Vit d deficiency 13. Muscle weakness 14 EDEMA BETTER 15 DYSPHAGIA BETTER PLAN PT OT STABLE COUMADIN Problems: Consultation Date/Type/Reason Admit Date/Time Jun 08, 2017 at 21:30 Initial Consult Date Type of Consultation: RENAL Referring Provider: DUANE NGUYỄN MD 24 HR Interval Summary Free Text/Dictation No new complains Exam/Review of Systems Vital Signs Vitals Vital Signs Date Time Temp Pulse Resp B/P Pulse Ox O2 Delivery O2 Flow Rate FiO2 06/23/17 20:00 Nasal Cannula 2.0 06/23/17 20:00 98.2 114 18 110/58 95 Intake and Output 06/22/17 06/22/17 06/23/17 15:00 23:00 07:00 Intake Total 240 ml 250 ml Output Total 400 ml 200 ml 650 ml Balance -160 ml 50 ml -650 ml Exam Respiratory: clear to auscultation Cardiovascular: regular rate and rhythm Gastrointestinal: soft Musculoskeletal: nl extremities to inspection Extremities: normal pulses Results Result Diagram: 06/21/17 0635 06/20/17 0638 Results 24 hrs Laboratory Tests Test 06/23/17 06:38 Prothrombin Time 22.7 H Prothrombin Time Ratio 1.8 INR International Normalized Ratio 1.98 Medications Medications Current Medications Lubiprostone (Amitiza) 24 mcg BID PO Last administered on 06/23/17 20:23; Admin Dose 24 MCG; Start 06/08/17 at 22:49 Nitroglycerin (Nitroglycerin (Sl Tab) 0.4 Mg) 0.4 tab PRN SL ; Start 06/08/17 at 22:49 Pantoprazole (Protonix Tab) 40 mg DAILY@06 PO Last administered on 06/23/17 06: 24; Admin Dose 40 MG; Start 06/08/17 at 22:49 Acetaminophen (Tylenol Tab) 650 mg Q6H PRN PO PAIN AND OR ELEVATED TEMP Last administered on 06/13/17 01:26; Admin Dose 650 MG; Start 06/08/17 at 22:49 Magnesium Oxide (Mag-Ox 400) 400 mg DAILY PO Last administered on 06/23/17 09: 15; Admin Dose 400 MG; Start 06/08/17 at 22:49 Lactobacillus Acidophilus/ Rhamnosus (Culturelle) 1 cap DAILY PO Last administered on 06/23/17 09:14; Admin Dose 1 CAP; Start 06/08/17 at 22:49 Polyethylene Glycol (Miralax) 8.5 gm DAILY PO Last administered on 06/23/17 09: 15; Admin Dose 8.5 GM; Start 06/08/17 at 22:49 Diltiazem HCl (Cardizem) 30 mg Q8 PO Last administered on 06/23/17 22:03; Admin Dose 30 MG; Start 06/08/17 at 22:49 Bisacodyl (Dulcolax Supp) 10 mg Q48H PRN [place] CONSTIPATION Last administered on 21:31; Admin Dose 10 MG; Start 06/08/17 at 22:49 Multivitamins Therapeutic (Theragran) 1 tab DAILY PO Last administered on 09:15; Admin Dose 1 TAB; Start 06/08/17 at 22:49 Folic Acid (Folic Acid) 1 mg DAILY PO Last administered on 06/23/17 09:14; Admin Dose 1 MG; Start 06/08/17 at 22:49 Atorvastatin Calcium (Lipitor) 10 mg DAILY@21 PO Last administered on 06/23/17 20:23; Admin Dose 10 MG; Start 06/09/17 at 21:00 Ergocalciferol (Drisdol) 50,000 unit Sa@09 PO Last administered on 06/21/17 09: 09; Admin Dose 50,000 UNIT; Start 06/14/17 at 09:00 Atenolol (Tenormin) 12.5 mg BID PO Last administered on 06/21/17 20:46; Admin Dose 12.5 MG; Start 06/13/17 at 21:00 Digoxin (Digoxin) 0.25 mg DAILY@13 PO Last administered on 06/23/17 17:18; Admin Dose 0.25 MG; Start 06/19/17 at 13:00 Magnesium Hydroxide (Milk Of Mag) 30 ml DAILY PRN PO CONSTIPATION Last administered on 06/22/17 08:24; Admin Dose 30 ML; Start 06/20/17 at 23:00 Lactulose (Enulose) 20 gm DAILY PRN PO CONSTIPATION; Start 06/20/17 at 23:00 Warfarin Sodium (Coumadin) 4 mg DAILY@17 PO Last administered on 06/23/17 17:18 ; Admin Dose 4 MG; Start 06/23/17 at 17:00 VAN VITALE MD Jun 23, 2017 23:39
[2017-06-24 02:00] VITALS: BP 138/65; RESP 18
[2017-06-24] MEDS: LEVOTHYROXINE 75 MCG TAB PO SCH (06:14)
[2017-06-24] MEDS: PANTOPRAZOLE (EC) 40 MG TAB PO SCH (06:14)
[2017-06-24] MEDS: DILTIAZEM 30 MG TAB PO SCH ×2 (06:16→13:20)
[2017-06-24 08:10] VITALS: BP 141/64; RESP 18
[2017-06-24] MEDS: MULTIVITAMINS THERAPEUTIC TAB PO SCH (08:53)
[2017-06-24] MEDS: LACTOBACILLUS RHAMNOSUS CAP PO SCH (08:53)
[2017-06-24] MEDS: FOLIC ACID 1 MG TAB PO SCH (08:53)
[2017-06-24] MEDS: MAGNESIUM OXIDE 400 MG TAB PO SCH (08:53)
[2017-06-24] MEDS: LUBIPROSTONE 24 MCG CAP PO SCH (08:53)
[2017-06-24] MEDS: POLYETHYLENE GLYCOL 17 GM PACKET PO SCH (08:54)
[2017-06-24] MEDS: ATENOLOL 25 MG TAB PO SCH (09:00)
--- NOTE | 2017-06-24 09:49 | CONS ---
Date/Time of Note Date/Time of Note DATE: 06/24/17 TIME: 09:43 Assessment/Plan Assessment/Plan Additional Assessment/Plan 1. Tachycardia - ? S Tach/PAF-overall improved when receives BB/CCB regimen [facility] [place] device - stable now 2. Hypotension- improved. Rx as needed - BETTER NOW 3.AF-currently reasonable rate control - stable 4.Fevers/leukcytosis-increased significantly - Rx with anti-Bx 5.TIA/CVA - con't rehab. 6.UTI - on anti-bx 7.PPM-s/p interogation with proper function 8. MVR - on RX 9. 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 Currently stable 10. CHF-systolic acute on chronic LVEF 40% by echo this admit - better now Consultation Date/Type/Reason Admit Date/Time Jun 08, 2017 at 21:30 Type of Consultation: RENAL Referring Provider: DUANE NGUYỄN MD 24 HR Interval Summary Free Text/Dictation NO acute events - compliant with rehab. ROS: No fever, no chills, no nausea, no vomiting, no diarrhea/constipation No recent weight changes No chest pain, no PND, no orthopnea No dizziness, blurred vision No thirst, no heat or cold intolerance Exam/Review of Systems Vital Signs Vitals Vital Signs Date Time Temp Pulse Resp B/P Pulse Ox O2 Delivery O2 Flow Rate FiO2 06/24/17 08:10 98.1 75 18 141/64 95 06/24/17 08:00 Nasal Cannula 2.0 Intake and Output 06/23/17 06/23/17 06/24/17 15:00 23:00 07:00 Intake Total 460 ml Output Total 3 ml Balance 457 ml Exam General: WN/WD/NAD, AOx 2-3 HEENT: Unicetric/atraumatic/EOMI (follows commands) NECK: JVD elevated, no thyromegaly Lymph: no lymphadenopathy HEART: Irregular with no S3, II/ systolic murmur at apex LUNGS: Coarse sounds ABD: soft, NT, ND, +BS : Intact Neuro: h/o CVA SKIN: chronic changes EXT: trace edema Results Result Diagram: 06/21/17 0635 06/20/17 0638 Medications Medications Current Medications Lubiprostone (Amitiza) 24 mcg BID PO Last administered on 06/24/17 08:53; Admin Dose 24 MCG; Start 06/08/17 at 22:49 Nitroglycerin (Nitroglycerin (Sl Tab) 0.4 Mg) 0.4 tab PRN SL ; Start 06/08/17 at 22:49 Pantoprazole (Protonix Tab) 40 mg DAILY@06 PO Last administered on 06/24/17 06: 14; Admin Dose 40 MG; Start 06/08/17 at 22:49 Acetaminophen (Tylenol Tab) 650 mg Q6H PRN PO PAIN AND OR ELEVATED TEMP Last administered on 06/13/17 01:26; Admin Dose 650 MG; Start 06/08/17 at 22:49 Magnesium Oxide (Mag-Ox 400) 400 mg DAILY PO Last administered on 06/24/17 08: 53; Admin Dose 400 MG; Start 06/08/17 at 22:49 Lactobacillus Acidophilus/ Rhamnosus (Culturelle) 1 cap DAILY PO Last administered on 06/24/17 08:53; Admin Dose 1 CAP; Start 06/08/17 at 22:49 Polyethylene Glycol (Miralax) 8.5 gm DAILY PO Last administered on 06/24/17 08: 54; Admin Dose 8.5 GM; Start 06/08/17 at 22:49 Diltiazem HCl (Cardizem) 30 mg Q8 PO Last administered on 06/24/17 06:16; Admin Dose 30 MG; Start 06/08/17 at 22:49 Bisacodyl (Dulcolax Supp) 10 mg Q48H PRN [place] CONSTIPATION Last administered on 21:31; Admin Dose 10 MG; Start 06/08/17 at 22:49 Multivitamins Therapeutic (Theragran) 1 tab DAILY PO Last administered on 08:53; Admin Dose 1 TAB; Start 06/08/17 at 22:49 Folic Acid (Folic Acid) 1 mg DAILY PO Last administered on 06/24/17 08:53; Admin Dose 1 MG; Start 06/08/17 at 22:49 Atorvastatin Calcium (Lipitor) 10 mg DAILY@21 PO Last administered on 06/23/17 20:23; Admin Dose 10 MG; Start 06/09/17 at 21:00 Ergocalciferol (Drisdol) 50,000 unit Sa@09 PO Last administered on 06/21/17 09: 09; Admin Dose 50,000 UNIT; Start 06/14/17 at 09:00 Atenolol (Tenormin) 12.5 mg BID PO Last administered on 06/21/17 20:46; Admin Dose 12.5 MG; Start 06/13/17 at 21:00 Digoxin (Digoxin) 0.25 mg DAILY@13 PO Last administered on 06/23/17 17:18; Admin Dose 0.25 MG; Start 06/19/17 at 13:00 Magnesium Hydroxide (Milk Of Mag) 30 ml DAILY PRN PO CONSTIPATION Last administered on 06/22/17 08:24; Admin Dose 30 ML; Start 06/20/17 at 23:00 Lactulose (Enulose) 20 gm DAILY PRN PO CONSTIPATION; Start 06/20/17 at 23:00 Warfarin Sodium (Coumadin) 4 mg DAILY@17 PO Last administered on 06/23/17 17:18 ; Admin Dose 4 MG; Start 06/23/17 at 17:00 JESSA JUNG MD Jun 24, 2017 09:49
[2017-06-24] MEDS: DIGOXIN 0.25 MG TAB PO SCH (12:44)
--- NOTE | 2017-06-24 13:06 | DS ---
Date/Time of Note Date/Time of Note DATE: 06/24/17 TIME: 13:05 Discharge Summary Admission/Discharge Info Admit Date/Time Jun 08, 2017 at 21:30 Discharge Date/Time Hospital Course Chief Complaint/Hosp Course 1. SEPSIS resolving 2. AFIB, controlled 3. HTN, controlled 4. ASHD 5. hyponatremia 6. recurrent UTI 7. LOW EF 8. low platelets HX 9. Anemia 10. urinary incontinence 11. Constipation 12. Vit d deficiency 13. Muscle weakness 14 EDEMA BETTER 15 DYSPHAGIA BETTER PLAN PT OT STABLE COUMADIN Home Meds Active Scripts Warfarin Sod (Coumadin) 2.5 Mg Tab, 2.5 MG PO DAILY for 10 Days, TAB follow with blood draw to regulate PT , keep INR 2.5-3.0 Prov:RENAY TRAN 06/08/17 Fluconazole* (Fluconazole*) 150 Mg Tablet, 150 MG PO DAILY for 10 Days, TAB Prov:RENAY TRAN 06/08/17 Polyethylene Glycol* (Miralax*) 17 Gm Powd.pack, 8.5 GM PO DAILY for 30 Days Prov:RENAY TRAN 06/08/17 Pantoprazole* (Pantoprazole*) 40 Mg Tablet.dr, 40 MG PO DAILY@06 for 30 Days Prov:RENAY TRAN 06/08/17 Multivitamins* (Theragran*) 1 Tab Tab, 1 TAB PO DAILY for 30 Days, TAB Prov:RENAY TRAN 06/08/17 Magnesium Oxide* (Magnesium Oxide*) 400 Mg Tablet, 400 MG PO DAILY for 30 Days, TAB Prov:RENAY TRAN 06/08/17 Lubiprostone* (Amitiza*) 24 Mcg Capsule, 24 MCG PO BID for 30 Days, CAP Prov:RENAY TRAN 06/08/17 Lactobacillus Rhamnosus* (Culturelle*) 1 Each Cap.sprink, 1 CAP PO DAILY for 30 Days, CAP Prov:RENAY TRAN 06/08/17 Folic Acid* (Folic Acid*) 1 Mg Tablet, 1 MG PO DAILY for 30 Days, TAB Prov:RENAY TRAN 06/08/17 Ergocalciferol (Vitamin D2) (VITAMIN D2) 50,000 Unit Capsule, 02014 UNIT PO Q7D for 90 Days, CAP Prov:RENAY TRAN 06/08/17 Diltiazem Hcl* (Cardizem*) 30 Mg Tablet, 30 MG PO Q8 for 30 Days, TAB Prov:RENAY TRAN 06/08/17 Bisacodyl* (Bisacodyl*) 10 Mg Supp, 10 MG NE Q48H Y for CONSTIPATION for 30 Days , SUPP Prov:RENAY TRAN 06/08/17 Atenolol* (Atenolol*) 25 Mg Tablet, 25 MG PO BID for 30 Days, TAB Prov:RENAY TRAN 06/08/17 Acetaminophen (MAPAP) 325 Mg Tablet, 650 MG PO Q6H Y for PAIN AND OR ELEVATED TEMP for 30 Days, TAB Prov:RENAY TRAN 06/08/17 Reported Medications Atorvastatin (Lipitor) 10 Mg Tablet, 10 MG PO HS 12/22/11 Levothyroxine Sodium (Levothroid) 88 Mcg Tablet, 88 MCG PO DAILY, 0 Refills 09/06/11 Nitroglycerin (Nitroquick) 0.4 Mg Tab.subl, 0.4 MG SL PRN, 0 Refills 09/06/11 Calcium Carbonate* (Oysco-500*) 1 Tab Tablet, 500 MG PO BID, 0 Refills 09/06/11 Primary Care Provider ROBY Díaz MD Jun 24, 2017 13:06
--- NOTE | 2017-06-24 13:39 | CONS ---
Date/Time of Note Date/Time of Note DATE: 06/24/17 TIME: 13:36 Assessment/Plan Assessment/Plan Chief Complaint/Hosp Course 76 yo female on Coumadin admitted for TIA, who was found to have partial thrombosis of internal jugular vein. # Thrombosis while on Coumadin - Given that patient has a prosthetic mitral valve, her anticoagulation options are limited to Coumadin but this was on hold because of supratherapeutic INR. Especially since this (IJ clot) is a relatively asymptomatic partial thrombosis, I do not think we need to change anticoagulation at this time. - I would recommend to keep the INR between 2.5-3.5. Given INR was >4 and urology concern for perinephric bleed. INR < 2. pt will likely need between 3 and 4 mg daily residential - fondaparinox can be stopped. HIT screen negative. - Repeat renal US 06/04/17 showed 1. Mild left hydronephrosis. 2. Otherwise normal renal ultrasound. hgb is fairly stable ~11-12 and will follow # UTI -continue antibiotics #Ischemic Cardiomyopathy -management per cardiology Problems: Consultation Date/Type/Reason Admit Date/Time Jun 08, 2017 at 21:30 Initial Consult Date May 29, 2017 Type of Consultation: Hematology Reason for Consultation coagulopathy Referring Provider: DUANE NGUYỄN MD 24 HR Interval Summary Free Text/Dictation no acute overnight events. pt continues on warfarin. doing well with rehab Exam/Review of Systems Vital Signs Vitals Vital Signs Date Time Temp Pulse Resp B/P Pulse Ox O2 Delivery O2 Flow Rate FiO2 06/24/17 08:10 98.1 75 18 141/64 95 06/24/17 08:00 Nasal Cannula 2.0 Intake and Output 06/23/17 06/23/17 06/24/17 15:00 23:00 07:00 Intake Total 460 ml Output Total 3 ml Balance 457 ml Exam Constitutional: alert, oriented Psych: no complaints Head: normocephalic Eyes: nl conjunctiva ENMT: nl external ears & nose Neck: non-tender, supple Respiratory: clear to auscultation, normal air movement Cardiovascular: regular rate and rhythm Gastrointestinal: soft Musculoskeletal: nl extremities to inspection, nl gait and stance Results Result Diagram: 06/21/17 0635 06/20/17 0638 Medications Medications Current Medications Lubiprostone (Amitiza) 24 mcg BID PO Last administered on 06/24/17 08:53; Admin Dose 24 MCG; Start 06/08/17 at 22:49 Nitroglycerin (Nitroglycerin (Sl Tab) 0.4 Mg) 0.4 tab PRN SL ; Start 06/08/17 at 22:49 Pantoprazole (Protonix Tab) 40 mg DAILY@06 PO Last administered on 06/24/17 06: 14; Admin Dose 40 MG; Start 06/08/17 at 22:49 Acetaminophen (Tylenol Tab) 650 mg Q6H PRN PO PAIN AND OR ELEVATED TEMP Last administered on 06/13/17 01:26; Admin Dose 650 MG; Start 06/08/17 at 22:49 Magnesium Oxide (Mag-Ox 400) 400 mg DAILY PO Last administered on 06/24/17 08: 53; Admin Dose 400 MG; Start 06/08/17 at 22:49 Lactobacillus Acidophilus/ Rhamnosus (Culturelle) 1 cap DAILY PO Last administered on 06/24/17 08:53; Admin Dose 1 CAP; Start 06/08/17 at 22:49 Polyethylene Glycol (Miralax) 8.5 gm DAILY PO Last administered on 06/24/17 08: 54; Admin Dose 8.5 GM; Start 06/08/17 at 22:49 Diltiazem HCl (Cardizem) 30 mg Q8 PO Last administered on 06/24/17 13:20; Admin Dose 30 MG; Start 06/08/17 at 22:49 Bisacodyl (Dulcolax Supp) 10 mg Q48H PRN [place] CONSTIPATION Last administered on 21:31; Admin Dose 10 MG; Start 06/08/17 at 22:49 Multivitamins Therapeutic (Theragran) 1 tab DAILY PO Last administered on 08:53; Admin Dose 1 TAB; Start 06/08/17 at 22:49 Folic Acid (Folic Acid) 1 mg DAILY PO Last administered on 06/24/17 08:53; Admin Dose 1 MG; Start 06/08/17 at 22:49 Atorvastatin Calcium (Lipitor) 10 mg DAILY@21 PO Last administered on 06/23/17 20:23; Admin Dose 10 MG; Start 06/09/17 at 21:00 Ergocalciferol (Drisdol) 50,000 unit Sa@09 PO Last administered on 06/21/17 09: 09; Admin Dose 50,000 UNIT; Start 06/14/17 at 09:00 Atenolol (Tenormin) 12.5 mg BID PO Last administered on 06/21/17 20:46; Admin Dose 12.5 MG; Start 06/13/17 at 21:00 Digoxin (Digoxin) 0.25 mg DAILY@13 PO Last administered on 06/24/17 12:44; Admin Dose 0.25 MG; Start 06/19/17 at 13:00 Magnesium Hydroxide (Milk Of Mag) 30 ml DAILY PRN PO CONSTIPATION Last administered on 06/22/17 08:24; Admin Dose 30 ML; Start 06/20/17 at 23:00 Lactulose (Enulose) 20 gm DAILY PRN PO CONSTIPATION; Start 06/20/17 at 23:00 Warfarin Sodium (Coumadin) 4 mg DAILY@17 PO Last administered on 06/23/17 17:18 ; Admin Dose 4 MG; Start 06/23/17 at 17:00 NATACHA SALAMANCA M.D. Jun 24, 2017 13:39
== END 2017-06-24 13:30 | DRG 56 ==
LOC: VRC 21:30
PROVIDERS: ADMIT Physical Medicine & Rehabilitation; ATTEND Internal Medicine Nephrology
PROC: F07Z5FZ Bed Mobility Treatment using Assistive, Adaptive, Supportive or Protective Equipment (ICD-10-PCS; principal; 2017-06-08)
PROC: F07Z8FZ Transfer Training Treatment using Assistive, Adaptive, Supportive or Protective Equipment (ICD-10-PCS; 2017-06-08)
PROC: F07Z9FZ Gait Training/Functional Ambulation Treatment using Assistive, Adaptive, Supportive or Protective Equipment (ICD-10-PCS; 2017-06-08)
PROC: F08Z2FZ Grooming/Personal Hygiene Treatment using Assistive, Adaptive, Supportive or Protective Equipment (ICD-10-PCS; 2017-06-08)
PROC: F08Z0FZ Bathing/Showering Techniques Treatment using Assistive, Adaptive, Supportive or Protective Equipment (ICD-10-PCS; 2017-06-08)
PROC: F08Z1FZ Dressing Techniques Treatment using Assistive, Adaptive, Supportive or Protective Equipment (ICD-10-PCS; 2017-06-08)
DX: I69.354 Hemiplegia and hemiparesis following cerebral infarction affecting left non-dominant side (principal); I50.23 Acute on chronic systolic (congestive) heart failure; L89.152 Pressure ulcer of sacral region, stage 2; J18.9 Pneumonia, unspecified organism; I82.C12 Acute embolism and thrombosis of left internal jugular vein; D68.9 Coagulation defect, unspecified; I11.0 Hypertensive heart disease with heart failure; B37.49 Other urogenital candidiasis; E87.1 Hypo-osmolality and hyponatremia; K86.1 Other chronic pancreatitis; R13.10 Dysphagia, unspecified; I69.391 Dysphagia following cerebral infarction; I25.10 Atherosclerotic heart disease of native coronary artery without angina pectoris; E03.9 Hypothyroidism, unspecified; I25.5 Ischemic cardiomyopathy; Z95.0 Presence of cardiac pacemaker; Z95.2 Presence of prosthetic heart valve; Z88.0 Allergy status to penicillin; D64.9 Anemia, unspecified; M62.81 Muscle weakness (generalized); K59.00 Constipation, unspecified; I48.0 Paroxysmal atrial fibrillation; R32 Unspecified urinary incontinence; E55.9 Vitamin D deficiency, unspecified
CPT/HCPCS: 71010; 74230; 80048; 80053; 81001; 81003; 85025; 85610; 87081; 87086; 92507; 92523; 92526; 92610; 92611; 93005; 94640; 94664; 97110; 97112; 97116; 97150; 97163; 97530; 97535; 97542; J1940; J2185; J7040